=== PATIENT | female | born 1950 | race Caucasian/White ===

== ENCOUNTER 2016-12-13 16:13 | Inpatient (IN) | payer MEDICARE, MEDICAID ==
[~2016-12-13] VITALS: Ht 175.3 cm; Wt 89.0 kg
[~2016-12-13 16:13] MED LIST: ASPI81TA3 PO; CETI10TA18 PO; CHOL10008 PO; DOCU250C7 PO; FLUT16SP; FOL1 PO; FOLI-89 PO; GABA400C PO; IMO2 PO; IPRA30SP; ONDANSETRON8ODT SL/PO; PHEN30SP4 NS; ProAirHFA IH; SENN15TA35 PO; [UNRECOGNIZED DRUG - CODE] PO; [UNRECOGNIZED DRUG - CODE] PO
[2016-12-13 16:15] VITALS: BP 98/60; PULSE 92; RESP 20; O2SAT 95
[2016-12-13] MEDS ORDERED: 0.9% Sodium Chloride 1,000 ML IV ONE ×2 (17:38→20:00)
--- NOTE | 2016-12-13 17:57 | ED.REPORT ---
HPI-Extremity Problem Lower Date of Service Dec 13, 2016 ED Provider: Ritchie Taylor MD Pt is a 66 year old female with a hx of lupus, neuropathy, COPD, TIA, CVA presenting to the ED via EMS complaining of right leg pain and swelling worsened 5 days ago. Denies cough, SOB or fever. She states that the pain and swelling began a month and a half ago and the wound burst 5 days ago. The pt is currently taking Bactrim with no relief, with ongoing swelling and erythema. She denies being on immunosuppressants. Nursing Notes Stated Complaint: R LEG INFECTION Chief Complaint: General Complaint Nursing Notes Reviewed: Yes Allergies: Coded Allergies: No Known Allergies (Verified Allergy, Unknown, 12/13/16) Uncoded Allergies: HAYFEVER (Allergy, Unknown, 06/11/16) Scheduled Aspirin Chew (Aspirin Chew) 81 Mg Chew 81 MG PO DAILY Cetirizine-Expunged Drug, Do Not Renew! (Cetirizine-Expunged Drug, Do Not Renew! ) 10 Mg Tablet 10 MG PO DAILY Cholecalciferol-Expunged Drug, Do Not Renew! (Vitamin D3-Expunged Drug, Do Not Renew!) 1,000 Unit Tab.chew 1,000 UNIT PO DAILY Docusate Sod-Expunged Drug, Do Not Renew! (Docusate Sod-Expunged Drug, Do Not Renew!) 250 Mg Cap 250 MG PO HS Folic Acid-Expunged Drug, Do Not Renew! (Folic Acid-Expunged Drug, Do Not Renew! ) 1 Mg Tablet 1 MG PO DAILY Folic Acid/Multivits-Min/Lut (Multi-Vitamin Gummies) 1 Each Tab.chew 1 EACH PO DAILY Gabapentin-Expunged Drug, Do Not Renew! (Neurontin-Expunged Drug, Do Not Renew! ) 400 Mg Capsule 400 MG PO QID Ipratropium-Expunged Drug, Do Not Renew! (Ipratropium-Expunged Drug, Do Not Renew!) 345 Evant/30 Ml Evant 2 SPR NA TID Loperamide-Expunged Drug, Do Not Renew! (Imodium-Expunged Drug, Do Not Renew!) 2 Mg Tablet 2 MG PO PRN Sennosides-Expunged Drug, Do Not Renew! (Senna Soft-Expunged Drug, Do Not Renew! ) 15 Mg Tablet 15 MG PO HS Scheduled PRN Albuterol-Expunged Drug, Do Not Renew! (Albuterol-Expunged Drug, Do Not Renew!) 200 Puff/8.5 Gm Hfa.aer.ad 200 PUFF IH Q4 PRN PRN Fluticasone-Expunged Drug, Do Not Renew! (Flonase-Expunged Drug, Do Not Renew!) 120 Sprays Aero 120 SPRAYS NA PM PRN PRN HYDROcodone/APAP-Expunged Drug, Do Not Renew! (Vicodin 10/325-Expunged Drug, Do Not Renew!) 1 Tab Tablet 1 TAB PO QID PRN PRN Hydrocod/APAP-Expunged, Do Not Renew! (VICODIN 7.5/325-Expunged Drug, Do Not Renew) 1 Ea Tablet 1 EA PO Q4-6H PRN PRN Ondansetron ODT 8 MGTab (Zofran ODT 8 MG Tab) 8 Mg Tab.rapdis 8 MG SL/PO Q4 PRN PRN 8 MG Phenylephrine Hcl (Nasal Evant) 30 Ml Evant 1 SPRAY NS TID PRN PRN General Time Seen by MD: 17:38 Chief Complaint Leg injury right Hx Obtained From: Patient, EMS Arrived By: Ambulance Onset Occurred: More than a week ago... (1 month) Symptom Duration: Since onset Location: : Leg right Quality: Painful Severity: Current: Mild Severity: Maximum: Moderate Associated with: Reports: Swelling Recent Healthcare: No recent doctor visit, No recent hospitalization Similar Sx Previous: No Past Medical History Past Medical History Arthritis h/o pneumonia CVA 1989 COPD Lupus Cirrhosis Anemia TIA (1989) Osteoporosis Uropathy h/o rectovaginal fistula Tubal ligation Gastroesophogeal reflux Reports: Obesity Past Surgical History right carpal tunnel left hip repair orif l ankle Smoking History Smoker Current Status UNK Social History Hx of alcoholism Alcohol Use: Denies alcohol use Ambulatory Status Wheelchair Review of Systems Constitutional: Denies: Fever Musculoskeletal: Reports: Extremity pain, Extremity swelling Skin: Reports Rash, Reports Swelling Complete sys rev & neg: except as marked. Respiratory: Denies: Non-productive cough, Shortness of breath Physical Exam Initial Vital Signs Vital Signs (First) Date Time Temp Pulse Resp B/P Pulse Ox O2 Delivery O2 Flow Rate FiO2 12/13/16 16:15 36.8 92 20 98/60 95 Room Air Initial VS: Reviewed General/Constitutional: Well-developed, Well-nourished Head / Eyes: Atraumatic, Normocephalic, PERRL ENT: Mucous membranes moist, Conjunctiva normal, No scleral icterus Respiratory: Breath sounds normal, Clear to auscultation, No respiratory distress Cardiovascular: Regular rate & rhythm, Heart sounds normal, Intact distal pulses Skin: Warm, Dry, No cyanosis Neurologic: Alert, Oriented, Nonfocal Psychiatric: Mood/affect normal, Behavior normal, Normal thought content Lower Extremity / Pelvis / MS: Neurologic intact, Vascular intact Right leg: diffuse erythema and warmth. Midline half way down the butler chronic malodorous wound. Abdomen: BS normoactive Interpretation & Diagnostics Interpretation & Diagnostics: CT RIGHT TIBIA/FIBULA: IMPRESSION: Possible rim-enhancing abscess in the anterior soft tissues at the mid tibial diaphyseal level, although unclear if this communicates with the skin surface. Please correlate with clinical exam findings. Possible osteonecrosis/AVN involving the distal tibial diametaphysis. Please correlate clinically and with radiographs. Confirmation with ankle MRI could be performed as clinical warranted. Severe circumferential subcutaneous and soft tissue swelling in keeping with cellulitis. Dictated by: Anthony Aldrich M.D. on 12/13/2016 at 20:50 Lab Results Interpretation Result Diagram: 12/13/16 1758 12/13/16 1758 Test 12/13/16 17:58 White Blood Count 8.3th/mm3 (3.8-10.1) Red Blood Count 3.34mil/mm3 (3.90-5.20) Hemoglobin 10.2g/dL (12.0-15.6) Hematocrit 30.5% (35.0-46.0) Mean Corpuscular Volume 91.3fL (81-100) Mean Corpuscular Hemoglobin 30.5pg (27.0-35.0) Mean Corpuscular Hemoglobin Concent 33.4% (32.0-37.0) Red Cell Distribution Width 13.3% (12.3-15.4) Platelet Count 450bil/L (150-400) Neutrophils (%) (Auto) 69.8% (40-74) Lymphocytes (%) (Auto) 18.0% (14-46) Monocytes (%) (Auto) 9.0% (4-12) Eosinophils (%) (Auto) 2.6% (0-5) Basophils (%) (Auto) 0.2% (0-3) Erythrocyte Sedimentation Rate 51mm/hr (0-40) Sodium Level 135mEq/L (134-144) Potassium Level 3.5mEq/L (3.5-5.2) Chloride Level 93mEq/L (97-108) Carbon Dioxide Level 28mmol/L (18-29) Blood Urea Nitrogen 23mg/dL (8-27) Creatinine 1.50mg/dL (0.57-1.00) Estimat Glomerular Filtration Rate 50mL/min (>59) Glucose Level 102mg/dL (60-99) Lactic Acid Level 1.7mmol/L (0.4-2.0) Calcium Level 7.9mg/dL (8.5-10.1) Magnesium Level 1.8mg/dL (1.6-2.6) Total Bilirubin 0.2mg/dL (0.0-1.2) Aspartate Amino Transf (AST/SGOT) 16U/L (0-50) Alanine Aminotransferase (ALT/SGPT) 6U/L (0-32) Alkaline Phosphatase 112U/L (25-165) Troponin T < 0.010ug/L (0.0-0.011) Total Protein 6.6g/dL (6.4-8.4) Albumin 3.1g/dL (3.4-5.0) ECG Interpretation ECG Interpretation: Prolonged [place] interval. Inferior and anterior infarct. No acute changes. Time: 19:44 Interpreted by: ED physician Normal ECG Interpretation: Normal rate (88), Normal sinus rhythm X-Ray Chest Interpretation Chest Xray Interpretation: IMPRESSION: No acute cardiopulmonary disease Dictated by: Anthony Aldrich M.D. on 12/13/2016 at 19:48 View: Portable, 1 view Interpretation / Wet Read by: Interpret - Radiologist Re-Eval/Medical Decision Med Decision/Clinical Course 66-year-old female with lupus presenting with a right lower extremity cellulitis and abscess. She does not have a fever or leukocytosis. There was some episodic hypotension, lactate was normal, she responded to IV fluids. We have obtained a wound culture and blood cultures. Antibiotics were initiated with vancomycin and Zosyn. While she has extensive cellulitis and an abscess and a small area of gas in the soft tissues, the gas is seen immediately below the drainage tract of the abscess. I do not believe this patient has a necrotizing fasciitis. Orthopedics has been consulted, I believe that this patient is stable for incision and drainage of her abscess tomorrow. Re-Evaluation/Progress #1: Time of Eval: 19:50 Patient Status: Condition improved Re-Evaluation/Progress Note: Performed Physical Exam Re-Evaluation/Progress #2: Time of Eval: 21:26 Patient Status: Condition improved Re-Evaluation/Progress Note: Pt resting comfortably. Temp: 36.7C Consultation #1: Referral / Consult Name: Troy Almonte MD Consulted With: Orthopedic Call Returned at: 21:05 Absorption Plant Operator: Will see patient, Agrees with plan Consultation #2: Referral / Consult Name: Everardo Javier MD Consulted With: Hospitalist Call Returned at: 21:45 Absorption Plant Operator: Will see patient, Agrees with plan, Accepts admit Counseled Regarding: Diagnosis, Lab results, Need for follow-up, When/why to return to ED Discharge & Departure Disposition: ADMITTED TO HOSPITAL Discharge Condition All VS Reviewed: Yes Condition: Improved Referrals: Ellie Rabago (PCP) Alison Attestation Portions of this note were transcribed by Berna Ruiz. I, Dr. Taylor personally performed the history, physical exam and medical decision-making; I reviewed and confirmed the accuracy of the information in the transcribed note. Signed by : Alison Moss, 12/13/2016 and 2144. copies to: Ellie Rabago Donald L MD Dec 13, 2016 17:57 BERNA RUIZ Dec 13, 2016 18:05
[2016-12-13 18:14] LABS: BASOPHILS % (AUTO) 0.2 % (0-3); EOSINOPHILS % (AUTO) 2.6 % (0-5); Mean Corpuscular Hemoglobin 30.5 pg (27.0-35.0); Mean Corpuscular Volume 91.3 fL (81-100); NEUTROPHILS % (AUTO) 69.8 % (40-74); Platelet Count 450 bil/L (150-400)
[2016-12-13 18:32] LABS: ERYTHROCYTE SEDIMENTATION RATE 51 mm/hr (0-40)
[2016-12-13 18:38] LABS: TROPONIN T < 0.010 ug/L (0.0-0.011)
[2016-12-13 18:39] LABS: Magnesium 1.8 mg/dL (1.6-2.6)
--- NOTE | 2016-12-13 19:51 | DRSVH ---
PROCEDURE: X-RAY CHEST ONE VIEW, PORTABLE ([id number]) INDICATIONS: sepsis TECHNIQUE: One view of the chest was acquired. COMPARISON: [facility], , CHEST 2VW, 10/04/2013, 7:45. FINDINGS: Surgical changes and devices: None. Lungs and pleura: No pleural effusions or pneumothorax. Lungs are clear. Diffuse scarring without i nterval change. Mediastinum: Mediastinal contours appear normal. Heart size is normal. Bones and chest wall: No suspicious bony lesions. There is dextroscoliosis Overlying soft tissues a ppear unremarkable. Chronic right rib fractures IMPRESSION: No acute cardiopulmonary disease Dictated by: Anthony Aldrich M.D. on 12/13/2016 at 19:48 Approved by: Anthony Aldrich M.D. on 12/13/2016 at 19:49
[2016-12-13] MEDS ORDERED: Piperacillin-Tazo 3.375 Gm Inj 3.375 GM in Dextrose 5% Minibag Plus 50 ML IV ONE (20:15)
[2016-12-13] MEDS ORDERED: Vancomycin Inj 1,000 MG in IV Premix 1 EACH IV ONE (20:15)
[2016-12-13 20:18] VITALS: BP 81/47; PULSE 87; RESP 15; O2SAT 92
--- NOTE | 2016-12-13 20:58 | DRSVH ---
PROCEDURE: CT TIBIA FIBULA RIGHT W/CONTRAST ([id number]) INDICATIONS: R leg abscess TECHNIQUE: After the administration of intravenous contrast, 3 mm axial sections acquired of the right tibia/fib shelli, with coronal and sagittal reformats. For radiation dose reduction, the following was used: aut omated exposure control, adjustment of mA and/or kV according to patient size. COMPARISON: [facility], CR, KNEE MIN 4VW (LT), 08/08/2012, 10:41. [facility] , CR, KNEE MIN 4VW (RT), 08/08/2012, 10:41. FINDINGS: Image quality: Excellent. Bones: Diffuse osteopenia. No discrete fracture. Serpiginous sclerosis present in the distal tibial d iametaphysis Soft tissues: Circumferential severe soft tissue swelling, and skin thickening. There is diffuse supe rficial fascial fluid. Rim-enhancing fluid collection measuring 4.1 x 1.6 cm seen in the anterior sof t tissues at the mid tibial diaphyseal level, suspicious for abscess. There is a focus of gas measuri ng 2-3 mm, and overlying skin defect although unclear if this communicates to the skin surface and re commend clinical correlation with physical exam findings. IMPRESSION: Possible rim-enhancing abscess in the anterior soft tissues at the mid tibial diaphyseal level, altho ugh unclear if this communicates with the skin surface. Please correlate with clinical exam findings. Possible osteonecrosis/AVN involving the distal tibial diametaphysis. Please correlate clinically and with radiographs. Confirmation with ankle MRI could be performed as clinical warranted. Severe circumferential subcutaneous and soft tissue swelling in keeping with cellulitis. Dictated by: Anthony Aldrich M.D. on 12/13/2016 at 20:50 Approved by: Anthony Aldrich M.D. on 12/13/2016 at 20:56
--- NOTE | 2016-12-13 21:32 | PCM.CONORT ---
Subjective Date of Surgery: Dec 13, 2016 Surgeon Admitting Provider:Everardo Javier MD Attending Provider:Everardo Javier MD Primary Care Physician:Ellie Rabago Other Provider: Reason for Consultation: Right leg abscess Allergy Allergies: Coded Allergies: No Known Allergies (Verified Allergy, Unknown, 12/13/16) Uncoded Allergies: HAYFEVER (Allergy, Unknown, 06/11/16) Medications Albuterol-Expunged Drug, Do Not Renew! (Albuterol-Expunged Drug, Do Not Renew!) 200 Puff/8.5 Gm Hfa.aer.ad 200 PUFF IH Q4 PRN PRN (Reported) Aspirin Chew (Aspirin Chew) 81 Mg Chew 81 MG PO DAILY (Reported) Cetirizine-Expunged Drug, Do Not Renew! (Cetirizine-Expunged Drug, Do Not Renew! ) 10 Mg Tablet 10 MG PO DAILY (Reported) Cholecalciferol-Expunged Drug, Do Not Renew! (Vitamin D3-Expunged Drug, Do Not Renew!) 1,000 Unit Tab.chew 1,000 UNIT PO DAILY (Reported) Docusate Sod-Expunged Drug, Do Not Renew! (Docusate Sod-Expunged Drug, Do Not Renew!) 250 Mg Cap 250 MG PO HS (Reported) Fluticasone-Expunged Drug, Do Not Renew! (Flonase-Expunged Drug, Do Not Renew!) 120 Sprays Aero 120 SPRAYS NA PM PRN PRN (Reported) Folic Acid-Expunged Drug, Do Not Renew! (Folic Acid-Expunged Drug, Do Not Renew! ) 1 Mg Tablet 1 MG PO DAILY (Reported) Folic Acid/Multivits-Min/Lut (Multi-Vitamin Gummies) 1 Each Tab.chew 1 EACH PO DAILY (Reported) Gabapentin-Expunged Drug, Do Not Renew! (Neurontin-Expunged Drug, Do Not Renew! ) 400 Mg Capsule 400 MG PO QID (Reported) HYDROcodone/APAP-Expunged Drug, Do Not Renew! (Vicodin 10/325-Expunged Drug, Do Not Renew!) 1 Tab Tablet 1 TAB PO QID PRN PRN (Reported) Hydrocod/APAP-Expunged, Do Not Renew! (VICODIN 7.5/325-Expunged Drug, Do Not Renew) 1 Ea Tablet 1 EA PO Q4-6H PRN PRN (Reported) Ipratropium-Expunged Drug, Do Not Renew! (Ipratropium-Expunged Drug, Do Not Renew!) 345 Henderson/30 Ml Henderson 2 SPR NA TID (Reported) Loperamide-Expunged Drug, Do Not Renew! (Imodium-Expunged Drug, Do Not Renew!) 2 Mg Tablet 2 MG PO PRN (Reported) Ondansetron ODT 8 MGTab (Zofran ODT 8 MG Tab) 8 Mg Tab.rapdis 8 MG SL/PO Q4 PRN PRN (Reported) 8 MG Phenylephrine Hcl (Nasal Henderson) 30 Ml Henderson 1 SPRAY NS TID PRN PRN (Reported) Sennosides-Expunged Drug, Do Not Renew! (Senna Soft-Expunged Drug, Do Not Renew! ) 15 Mg Tablet 15 MG PO HS (Reported) History History of ENT Problems?: No HEENT History: Positive for:: Sinus Problem Denies:: Abnormal Airway Difficult Intubation Dysphagia Hearing Problem Hx of Heart Problems?: No Cardiovascular History: Denies:: Atrial Fibrillation Chest Pain Congestive Heart Failure Hypertension Valvular Heart Disease Hx of Respiratory Problem?: Yes Respiratory History: Positive for:: COPD (patient states she does does not have copd but it is noted in chart history) Dyspnea Pneumonia (X 2 WHEN IN LATE 20'S) Denies:: Asthma Chest Surgery Cough Emphysema Hemoptysis Tuberculosis Hx Neurologic Problems?: No Neurological History: Positive for:: CVA (1989 SLIGHT CVA) Hx of GI Problems?: No Gastrointestinal History: Positive for:: Cirrhosis Gastroesphageal Reflux Denies:: Diverticulitis Hiatal Hernia Rectal Bleeding Hx of Problems?: No Female Hx: Denies:: Currently Hx Musculoskeletal Problems?: Yes Musculoskeletal History: Denies:: Joint Replacement Other History/Comment Sapna Rodriguez is a 66 year old female with a hx of lupus, neuropathy, COPD, TIA, CVA presents with complaints of right leg pain and swelling over the past 4-5 days. She states that the pain and swelling began a month and a half ago and a growing lesion along her anterior tibia opened up approximately 5 days ago. The pt is currently taking Bactrim with no improvement with ongoing swelling and erythema. She denies being on immunosuppressants and denies any fever chills today. She denies any other issues or complaints today. Hx of Psycho/Social Problems?: No Hx Surgeries?: Yes Hx Any Other Health Problems?: No Other History: Positive for:: Hospitalization Denies:: Cancer Endocrine Disease Thyroid Disease Hx Diabetes: NoBedside Blood Glucose: 102 Hx Alcohol Use: NoHx Substance Use: No Smoking Status: Smoker Current Status UNK Have You Smoked inLast 12 mo: YesApprox How Many Cigarettes/day: 10 Objective Exam Vital Signs & I/O Vital Sign- Last 8 Hours Date Time Temp Pulse Resp B/P Pulse Ox O2 Delivery O2 Flow Rate FiO2 12/13/16 20:18 87 15 81/47 92 Room Air 12/13/16 16:15 36.8 92 20 98/60 95 Room Air Lab & Micro Results Laboratory Tests Test 12/13/16 17:58 White Blood Count 8.3th/mm3 (3.8-10.1) Red Blood Count 3.34mil/mm3 (3.90-5.20) Hemoglobin 10.2g/dL (12.0-15.6) Hematocrit 30.5% (35.0-46.0) Mean Corpuscular Volume 91.3fL (81-100) Mean Corpuscular Hemoglobin 30.5pg (27.0-35.0) Mean Corpuscular Hemoglobin Concent 33.4% (32.0-37.0) Red Cell Distribution Width 13.3% (12.3-15.4) Platelet Count 450bil/L (150-400) Neutrophils (%) (Auto) 69.8% (40-74) Lymphocytes (%) (Auto) 18.0% (14-46) Monocytes (%) (Auto) 9.0% (4-12) Eosinophils (%) (Auto) 2.6% (0-5) Basophils (%) (Auto) 0.2% (0-3) Erythrocyte Sedimentation Rate 51mm/hr (0-40) Sodium Level 135mEq/L (134-144) Potassium Level 3.5mEq/L (3.5-5.2) Chloride Level 93mEq/L (97-108) Carbon Dioxide Level 28mmol/L (18-29) Blood Urea Nitrogen 23mg/dL (8-27) Creatinine 1.50mg/dL (0.57-1.00) Estimat Glomerular Filtration Rate 50mL/min (>59) Glucose Level 102mg/dL (60-99) Lactic Acid Level 1.7mmol/L (0.4-2.0) Calcium Level 7.9mg/dL (8.5-10.1) Magnesium Level 1.8mg/dL (1.6-2.6) Total Bilirubin 0.2mg/dL (0.0-1.2) Aspartate Amino Transf (AST/SGOT) 16U/L (0-50) Alanine Aminotransferase (ALT/SGPT) 6U/L (0-32) Alkaline Phosphatase 112U/L (25-165) Troponin T < 0.010ug/L (0.0-0.011) Total Protein 6.6g/dL (6.4-8.4) Albumin 3.1g/dL (3.4-5.0) Microbiology 12/13/16 Blood Culture, Received Pending Result Diagram: 12/13/16175712/13/161757 Review of Systems: Constitutional: Negative, except as otherwise mentioned in the history above. Ophthalmologic: Negative, except as otherwise mentioned in the history above. Cardiovascular: Negative, except as otherwise mentioned in the history above. Respiratory: Negative, except as otherwise mentioned in the history above. Gastrointestinal: Negative, except as otherwise mentioned in the history above. Genitourinary: Negative, except as otherwise mentioned in the history above. Musculoskeletal: Negative, except as otherwise mentioned in the history above. Neurological: Negative, except as otherwise mentioned in the history above. Psychiatric: Negative, except as otherwise mentioned in the history above. Hematologic/Lymphatic: Negative, except as otherwise mentioned in the history above. Allergic/Immunologic: Negative, except as otherwise mentioned in the history above. H&P Surgical Exam Exam Musculoskeletal: CONST: WD,WN, NAD, A+OX3 OCULAR: EOMI, no conjunctivitis/icterus ENT: no deformities, scars or lesions CARDIAC: Pulse is regular. No cyanosis,clubbing,edema RESP: regular,unlabored MSK: normal light touch SPN/DPN/TN distributions. 5/5 DF/PF/Inv/Ev, 2+ DP Right tibia - scars.-effusion - erythema - atrophy or asymmetry. TTP anterior butler, 20 cm area of erythema with 4 cm open lesion with purulent discharge. Fluid noted beneath wound. alignment- neutral, gait- antalgic, edema- moderate ROM 0-15 10-40 2/2 pain, + painful arc, - crepitus, - calf tenderness - instability on varus/valgus stress Signs Cami's: - Reverse McMurrays: - James: 1+ Drawer: 1+ Dial: - Bobo: - Apprehension:- J sign:- patella tilt: - Additional Information CT scan: Possible rim-enhancing abscess in the anterior soft tissues at the mid tibial diaphyseal level, although unclear if this communicates with the skin surface. Please correlate with clinical exam findings. Possible osteonecrosis/AVN involving the distal tibial diametaphysis. Please correlate clinically and with radiographs. Confirmation with ankle MRI could be performed as clinical warranted. Severe circumferential subcutaneous and soft tissue swelling in keeping with cellulitis. H&P Preop Plan Impression right tibial soft tissue abscess with unlikely bone involvement Problems: Risks & Benefits * We have reviewed the risks and benefits as well as the alternatives to surgery. All questions were answered to the patient's satisfaction and a counseling note to that effect. The patient has provided informed consent. * I have counseled the patient regarding the deleterious effects that smoking during the perioperative period can have upon wound healing, infection rates, and the overall rate of complications. Plan Please obtain xray of tib/fib and MRI with contrast for further delineation and confirmation of abscess tonight Plan for I+D of right tibia tomorrow NPO after midnight for surgery on 12/14/16 recommend aspiration for cultures and sensitivity directed therapy prior to abx administration please have wound vac ready for OR placement may need additional wound vac placement sat vs sun verbal and written consent obtained continue medical management per primary please call with questions Please keep the affected extremity elevated when possible. You may use ice and/or heat as needed for comfort. All questions and concerns were addressed. Please feel free to call with any further questions, comments, and/or concerns. Troy Almonte MD Dec 13, 2016 21:32
[2016-12-13 21:45] VITALS: BP 90/50; PULSE 84; RESP 23; O2SAT 93
[2016-12-13] MEDS ORDERED: Alum-Mag Hydrox-Simeth 30 mL Suspension PO PRN (21:45)
[2016-12-13] MEDS ORDERED: Polyethylene Glycol (PEG) 17 Gm Powder PO PRN (21:45)
[2016-12-13] MEDS ORDERED: Ondansetron 2 mg/mL 2 mL Inj IVPUSH PRN (21:45)
[2016-12-13 22:01] VITALS: BP 117/69; PULSE 89; RESP 14; O2SAT 95
[2016-12-13 22:20] LABS: APPEARANCE,URINE CLEAR (CLEAR,HAZY); COLOR,URINE YELLOW (YELLOW); OCCULT BLOOD,URINE NEGATIVE (NEGATIVE); UROBILINOGEN,URINE NORMAL (NORMAL)
--- NOTE | 2016-12-13 22:44 | PCM.HPMED ---
Subjective Date of Service Dec 13, 2016 Primary Provider: Admitting Physician: Everardo Javier MD Primary Care Physician: Ellie Rabago Attending Physician: Everardo Javier MD Admit Status: From the Emergency Department, Non-Telemetry Chief Complaint: Right leg infection History of Present Illness: Patient is a 66 year old female with a hx of lupus, neuropathy, COPD, TIA, CVA presenting to the ED via EMS complaining of right leg pain and swelling worsened 5 days ago. The pain is on her right lower leg, usually a constant 7/ 10 in pain scale, currently mild given pain medications in the ED. Patient states she picked a scab off her anterior butler 2 days before the leg started to swell and became painful. Denies cough, SOB or fever. Swelling and redness has been there for 1.5 months, and patient was prescribed Bactrim which she took for 5 days with no significant change about one month ago prescribed by her PCP , Ellie JOSEPH. She denies being on immunosuppressants. In the ED, vitals 36.8, P92 RR20, BP98/60, 95% on RA. WBC 8.3 with lactic acid 1.7, ESR 51. Ortho, Dr. Almonte was consulted, patient seen. Patient admitted with plans for I& D in am. Review of Systems: 11 points ROS reviewed and negative otherwise noted in HPI. Allergies Coded Allergies: No Known Allergies (Verified Allergy, Unknown, 12/13/16) Uncoded Allergies: HAYFEVER (Allergy, Unknown, 06/11/16) Home Medications Scheduled Aspirin Chew (Aspirin Chew) 81 Mg Chew 81 MG PO DAILY Cetirizine-Expunged Drug, Do Not Renew! (Cetirizine-Expunged Drug, Do Not Renew! ) 10 Mg Tablet 10 MG PO DAILY Cholecalciferol-Expunged Drug, Do Not Renew! (Vitamin D3-Expunged Drug, Do Not Renew!) 1,000 Unit Tab.chew 1,000 UNIT PO DAILY Docusate Sod-Expunged Drug, Do Not Renew! (Docusate Sod-Expunged Drug, Do Not Renew!) 250 Mg Cap 250 MG PO HS Folic Acid-Expunged Drug, Do Not Renew! (Folic Acid-Expunged Drug, Do Not Renew! ) 1 Mg Tablet 1 MG PO DAILY Folic Acid/Multivits-Min/Lut (Multi-Vitamin Gummies) 1 Each Tab.chew 1 EACH PO DAILY Gabapentin-Expunged Drug, Do Not Renew! (Neurontin-Expunged Drug, Do Not Renew! ) 400 Mg Capsule 400 MG PO QID Ipratropium-Expunged Drug, Do Not Renew! (Ipratropium-Expunged Drug, Do Not Renew!) 345 Cornish/30 Ml Cornish 2 SPR NA TID Loperamide-Expunged Drug, Do Not Renew! (Imodium-Expunged Drug, Do Not Renew!) 2 Mg Tablet 2 MG PO PRN Sennosides-Expunged Drug, Do Not Renew! (Senna Soft-Expunged Drug, Do Not Renew! ) 15 Mg Tablet 15 MG PO HS Scheduled PRN Albuterol-Expunged Drug, Do Not Renew! (Albuterol-Expunged Drug, Do Not Renew!) 200 Puff/8.5 Gm Hfa.aer.ad 200 PUFF IH Q4 PRN PRN Fluticasone-Expunged Drug, Do Not Renew! (Flonase-Expunged Drug, Do Not Renew!) 120 Sprays Aero 120 SPRAYS NA PM PRN PRN HYDROcodone/APAP-Expunged Drug, Do Not Renew! (Vicodin 10/325-Expunged Drug, Do Not Renew!) 1 Tab Tablet 1 TAB PO QID PRN PRN Hydrocod/APAP-Expunged, Do Not Renew! (VICODIN 7.5/325-Expunged Drug, Do Not Renew) 1 Ea Tablet 1 EA PO Q4-6H PRN PRN Ondansetron ODT 8 MGTab (Zofran ODT 8 MG Tab) 8 Mg Tab.rapdis 8 MG SL/PO Q4 PRN PRN 8 MG Phenylephrine Hcl (Nasal Cornish) 30 Ml Cornish 1 SPRAY NS TID PRN PRN PMH Arthritis h/o pneumonia CVA 1989 COPD Lupus Cirrhosis Anemia TIA (1989) Osteoporosis Uropathy GERD Obesity Surgical History right carpal tunnel left hip repair ORIF left ankle h/o rectovaginal fistula Tubal ligation Social History Hx Alcohol Use: No Hx Substance Use: No Hx Tobacco Use: No Smoking Status: Smoker Current Status UNK Living Arrangement: Alone (wheelchair bound, local resident) Exam Vital Signs Vital Sign - Last Date Time Temp Pulse Resp B/P Pulse Ox O2 Delivery O2 Flow Rate FiO2 12/13/16 20:18 87 15 81/47 92 Room Air 12/13/16 16:15 36.8 Exam GEN: Patient comfortably lying in bed, NAD HEENT: NC/AT, EOMI, sluggish pupils, sclera anicteric, moist mucous membranes with upper dentures in place Neck: supple with full ROM CV: RRR, normal S1, S2, no murmurs. NL peripheral pulses Lungs: CTAB ABD: soft, non-tender, normal active bowel tones Skin: Erythema, swelling and warmth on bilateral lower extremities with diffused scaling. Tenderness to palpation R>L. Open lesion on right mid anterior butler with mild drainage and malodor. No other open wounds noted on legs ,feet or toes. Neuro: alert and oriented, appears drowsy due pain medications given, but answers questions appropriately Psych: normal mood and affect Lab and Diagnostics Result Diagram: 12/13/16175712/13/161757 X-Rays, CTs and MRIs Date of Service: 12/13/161737 PROCEDURE: X-RAY CHEST ONE VIEW, PORTABLE ([id number]) IMPRESSION: No acute cardiopulmonary disease Dictated by: Anthony Aldrich M.D. on 12/13/2016 at 19:48 Date of Service: 12/13/161999 PROCEDURE: CT TIBIA FIBULA RIGHT W/CONTRAST ([id number]) INDICATIONS: R leg abscess IMPRESSION: Possible rim-enhancing abscess in the anterior soft tissues at the mid tibial diaphyseal level, although unclear if this communicates with the skin surface. Please correlate with clinical exam findings Possible osteonecrosis/AVN involving the distal tibial diametaphysis. Please correlate clinically and with radiographs. Confirmation with ankle MRI could be performed as clinical warranted. Severe circumferential subcutaneous and soft tissue swelling in keeping with cellulitis. Dictated by: Anthony Aldrich M.D. on 12/13/2016 at 20:50 Assessment & Plan Patient is a 66 year old female with a hx of lupus, neuropathy, COPD, TIA, CVA presenting to the ED via EMS complaining of right leg pain and swelling worsened 5 days ago. Found to have possible abscess with high risk of osteonecrosis/AVN involving distal tibia. Patient admitted for possible I&D tomorrow. Cellulitis with possible abscess, present on admission. Acute. - CT showed "Possible rim-enhancing abscess in the anterior soft tissues at the mid tibial diaphyseal level, although unclear if this communicates with the skin surface. Please correlate with clinical exam findings.Possible osteonecrosis/AVN involving the distal tibial diametaphysis. Please correlate clinically and with radiographs. Confirmation with ankle MRI could be performed as clinical warranted.Severe circumferential subcutaneous and soft tissue swelling in keeping with cellulitis." - Vanco and Zosyn started in ED, will continue until C/S results - wound swabbed for culture and sensitivities pending - Dr. Almonte of ortho consulted and has seen patient, possible I&D in am - NPO - Xray of tibia and fibula, MRI with contrast ordered - wound vac ordered - MRSA swab pending COPD - continue home dose Advair Neuropathy - continue home dose gabapentin - Vicodin held Lupus - continue to monitor GERD - patient not on any medication for this Allergic rhinitis - continue home cetirizine - Acetaminophen as needed for mild pain/fever/headache - Bowel regimen as needed - Antiemetic as needed DVT: anticoagulation held due to I&D in am, SCD not appropriate due to lesion in lower extremity GI: not indicated CODE: DNR/DNI Patient admitted under inpatient status with expected length of stay > 2 midnights for severity of present symptoms, complexities of treatment plan and risk for adverse events. Resuscitation Status: DNR/DNI:Do Not Resuscitate/Intubate Attending Statement The patient was seen and examined together with Dr. Valentino on 12/13 and I agree with the history, exam and plan as outlined in the note above. Indira Valentino DO Dec 13, 2016 21:51 Everardo Javier MD Dec 13, 2016 23:43
[2016-12-13 23:23] VITALS: BP 87/55; PULSE 84; RESP 18; O2SAT 93
--- NOTE | 2016-12-13 23:45 | NUR ---
NEW ADMIT Report given by Emperatriz Buchanan RN in the ED. Pt arrived from the ED @ 2340 in bed. Pt extremely tired and only able to answer minimal admission questions. Pt's vitals stable, pt c/o of generalized back pain, with no PRN pain medication given. Pt has an open wound to the right lower extremity that is weeping. Chucks pad placed underneath right leg. Pt refused to change into hospital gown, preferred to wear personal clothing. Tele on, pt on RA, swabbed for MRSA and sent to lab. Pt resting comfortably. No other issues noted at this time.
[2016-12-13 23:48] VITALS: BP 94/60; PULSE 83; RESP 16; O2SAT 93
[2016-12-14] VITALS (18 sets, daily range): BP systolic 76–114; BP diastolic 42–92; PULSE 76–95; RESP 10–28; O2SAT 89–98
[2016-12-14] MEDS ORDERED: Vancomycin Inj 1,000 MG in IV Premix 1 EACH IV ONE ×2 (01:20)
--- NOTE | 2016-12-14 02:03 | PCM.PHAPRO ---
Progress Right leg infection VANCOMYCIN DOSING PER PHARMACY Indication: Right leg cellulitis Trough: 10-15 Lab: Scr: 1.50 CrCl: 45 WBC: 8.3 Blood cultures are pending Additional abx: zosyn Plan - Pt received vancomycin 1000 mg IV once in the ED @2100 on 12/13 - Gave another dose of vancomycin 1000 mg IV once to have total loading dose of vancomycin 2000 mg IV - Will give vancomycin 1000 mg IV q 24 beginning tonight @2100 (12/14) - Will draw an early trough on 12/15 @ 2029 - Pharmacy will continue to follow as appropriate Awa Bonilla PharmD Dec 14, 2016 02:03
[2016-12-14 03:01] LABS: BASOPHILS % (AUTO) 0.1 % (0-3); EOSINOPHILS % (AUTO) 1.9 % (0-5); MONOCYTES % (AUTO) 9.7 % (4-12); Mean Corpuscular Hemoglobin 29.7 pg (27.0-35.0); Mean Corpuscular Volume 92.6 fL (81-100); NEUTROPHILS % (AUTO) 75.3 % (40-74); Platelet Count 400 bil/L (150-400)
[2016-12-14 03:19] LABS: INR 0.95 ratio
[2016-12-14] MEDS ORDERED: Piperacillin-Tazo 3.375 Gm Inj 3.375 GM in Dextrose 5% Minibag Plus 50 ML IV SCH (04:30)
--- NOTE | 2016-12-14 05:12 | NUR ---
LEG WOUND/INCONTINENCE Pt incontinent of bladder during the night. Pt stated she just couldn't make it. No pain, SOB, chest pain, N/V/D noted. Pt's right leg continues to weep serous fluid, chucks pad underneath leg. Vitals stable, patient rested well throughout the night.
[2016-12-14 06:23] LABS: ERYTHROCYTE SEDIMENTATION RATE 32 mm/hr (0-40)
[2016-12-14] MEDS ORDERED: Lactated Ringer's 1,000 ML IV ONE ×2 (07:55→15:23)
[2016-12-14] MEDS ORDERED: Vancomycin Dose per Pharmacist XX SCH (08:30)
[2016-12-14] MEDS ORDERED: fentaNYL-PF 50 mCg/mL 2 mL Inj ONE ×2 (09:21→16:43)
[2016-12-14] MEDS ORDERED: FUR20 PO (11:41)
[2016-12-14] MEDS ORDERED: HYDR-3740 PO (11:41)
[2016-12-14] MEDS ORDERED: ALBU8.5H2 INH (11:41)
[2016-12-14] MEDS ORDERED: GABA-504 PO (11:41)
[2016-12-14] MEDS ORDERED: FLUT9.9S NASAL (11:44)
[2016-12-14] MEDS ORDERED: MULT1CAP33 PO (11:46)
[2016-12-14] MEDS ORDERED: Propofol 10,000 mCg/mL 20 mL Inj ONE (12:37)
[2016-12-14] MEDS ORDERED: Ondansetron 2 mg/mL 2 mL Inj ONE (12:37)
--- NOTE | 2016-12-14 13:03 | CONS ---
[address] [address] CONSULTATION REPORT PATIENT: OSMAN WOLFE : 1950 MR#: [id number] ADMIT: 12/13/2016 JOB ID: [id number] DATE OF SERVICE: 12/14/2016 INFECTIOUS DISEASE CONSULTATION: I thank Dr. Valentino for this timely consult. REASON FOR CONSULTATION: Severe right lower extremity infection in a patient with underlying lupus. HISTORY OF PRESENT ILLNESS: The patient is a 66-year-old retired woman who lives by herself in the local area with underlying lupus, severe peripheral neuropathy, COPD, and a history of cerebrovascular disease. She has been having some swelling and pain in her right lower extremity for several weeks for which she saw a physician as an outpatient and was given a short course of Bactrim. Apparently the right lower extremity process did not resolve, but continued to be sort of a festering problem. More recently, about five days ago, she was scratching her right lower extremity and thereafter noted a dramatic worsening in the right lower extremity swelling and pain below the knee. This became exquisitely painful and she presented for evaluation and was subsequently admitted strictly on the basis of the appearance of her right lower extremity. Oddly, she denies any associated fevers, chills, or sweats despite this very aggressive infection. She likewise denies any change in her chronic baseline respiratory status. Denies any nausea, vomiting, diarrhea, or change in mental status. PAST MEDICAL HISTORY: 1. Lupus times 10+ years. 2. History of cerebrovascular accident with TIAs. 3. COPD. 4. Possible history of cirrhosis, though I am not certain how this has been established. 5. GERD. 6. Debility requiring the use of a wheelchair for many activities. 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 She is a nonalcohol consumer but a current smoker. She lives alone in an apartment here in [place]. FAMILY HISTORY: Negative for tuberculosis. REVIEW OF SYSTEMS: Was done. The patient is a bit lethargic but we were able to obtain an essentially complete review of systems. At this point she has no headache, visual change, sore throat, or trouble swallowing. No significant cough, though she is a smoker with COPD and is always a bit short of breath. This has not changed. No chest pain. No nausea, vomiting, or diarrhea. She denies urinary complaints; no urgency, frequency, or dysuria. No significant issues with other joints, though she does note she has a chronic swelling of the lower extremities and can only ambulate short distances. PHYSICAL EXAMINATION: Reveals an afebrile woman temperature 37.5, pulse 91, respiratory rate 18, blood pressure 114/71. She is saturating about 91% on room air. The patient is lethargic; will answer questions, but she says she is very tired. She is oriented, though unable to give history. Her head is without trauma. There is no temporal wasting. The eyes without conjunctivitis or scleral icterus. The oral cavity without thrush, hairy leukoplakia, or pharyngitis. The neck without adenopathy or JVD. The lungs are reasonably clear bilaterally; there may be an occasional wheeze, but good air flow bilaterally. Cardiac tones regular rate and rhythm, without murmur. Abdomen soft and nontender. I do not appreciate hepatosplenomegaly or ascites. There is no suprapubic fullness. She does not have a Mendes. The upper extremities are free of synovitis or cellulitis. Neurologically she is capable of utilizing both arms. Both lower extremities have reasonable strength, though it is difficult to fully assess her right leg in view of the lesion. Below the knee the patient has venous stasis changes bilaterally. There is also cracking and some erythema between the toes bilaterally. On the right lower extremity there is obvious swelling which starts just below the knee and extends about mcc down the calf. This swelling is primarily anteriorly and is associated with erythema, tenderness, warmth, and about a 1 cm open wound with drainage. There is a bit of a foul odor associated with this substantial draining wound. LABORATORIES: Include white blood count 10,500, platelet count 400,000, creatinine 1.08 down from 1.5 on admission last night. Liver function tests are normal. Urinalysis with 6-10 white cells, which is normal for her age. Urine culture is negative. Associated other cultures include two blood cultures which are pending, a MRSA screen which is pending from last night, and a wound culture which so far we only have a Gram stain from which shows moderate polys, moderate gram-positive cocci, and moderate gram-variable rods. IMAGING: Was reviewed on the screen and in talking to the radiologist. There is a substantial rim-enhancing abscess seen on a CT scan at the mid tibial level. Also noted is some osteonecrosis in the distal tibia, which looks like bony infarcts to my eye on the MRI scan. A chest x-ray is basically clear. IMPRESSION: This woman has a large abscess which has developed over several weeks and become much worse over the last five days involving the mid tibial portion of the of the right lower extremity. There is an open wound which is draining some fluid which is a bit foul smelling, raising the concern of polymicrobial infection. 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 The likely organisms here are staph and strep, but there is certainly concern, based on the odor and the appearance of multiple organs in the Gram stain, for possible mixed aerobe and anaerobe infection as well. This patient is not in shock and does not appear critically ill, as she might if she had a severe necrotizing soft tissue infection, but nonetheless she is immunosuppressed and has a large amount of tissue at risk, so I think very aggressive antibiotic and surgical interventions are indicated. Because of her perhaps impaired renal function I am a bit reluctant to continue with vancomycin and will switch to daptomycin combined with meropenem. Clindamycin will be added for synergy until we are certain that this is not a group A strep type infection. I agree with surgery. RECOMMENDATIONS: 1. Will discontinue the current antibiotics which include vanc and Zosyn out of concern for possible nephrotoxicity in this woman with underlying lupus. 2. Will get her started on maximal doses of clindamycin, meropenem, and daptomycin, while we await final cultures and surgical debridement. 3. This case was discussed with the team and we will closely follow her with you. Thank you for this consultation.
[2016-12-14] MEDS: DAPTOmycin Inj 500 MG in 0.9% Sodium Chloride 50 ML IV SCH (13:35)
[2016-12-14] MEDS: Clindamycin Inj 900 MG in IV Premix 1 EACH IV SCH ×3 (13:35→18:01)
--- NOTE | 2016-12-14 13:56 | NUR ---
P: Pain I: Pt c/o 02/[address] Segura notified but pain meds not ordered. Gabapentin po given as ordered. IVF infusing 120cc/hr. Antibiotics started. Report given to OR staff. Rt leg swollen, red and weeping. Voiding per BSC without problems. Afebrile. NPO. E: Stable S: Alert and oriented. Uses call light appropriately. Awaiting OR.
--- NOTE | 2016-12-14 14:09 | NUR ---
Social Work: Initial Assessment D: Per EMR review, pt is a 66 year old female admitted for Right Leg Cellulitis. Pt is Medicare with [facility] supplement. PCP is OPAL Pedro. NOK Is Dereck Rodriguez, son, . Advanced directives on chart. Readmit score not entered at this time. Pt discussed in am rounds. Pt scheduled for surgery/I&D today. MUSICAL INSTRUMENT MECHANIC met with pt at bedside. Sw role explained. See initial assessment. Pt lives at home in an apartment, alone. She uses a powerchair for ambulation but is I with transfers. Powerchair is present at bedside. Pt does not drive and has never had HH or skilled rehab. Pt states she has [employer] caregiving for 3 hours/day on Sunday and . Pt cannot recall her [facility] CM name. t/c to [facility]; MUSICAL INSTRUMENT MECHANIC learned pt's worker is Belgica Nunez ([phone]). MUSICAL INSTRUMENT MECHANIC left a message notifying of pt's admission and requested return phone call to verify the aforementioned information about pt's care. [facility] requested to fax clinicals. A: Pt who lives at home, alone with [employer] caregiving P: Evolving; MUSICAL INSTRUMENT MECHANIC to continue to follow and assist with dcp as pt's clinical course develops. JAMA Koehler Addendum: 12/14/16 at 1416 by PABLO HUITRON SS Amended: Links added.
--- NOTE | 2016-12-14 14:15 | PCM.HPANE ---
Patient Data Surgeon Admitting Provider:Everardo Javier MD Attending Provider:Everardo Javier MD Primary Care Physician:Ellie Rabago Other Provider: Reason for Visit Right Leg Cellulitis Ht/WT & BMI Height (Feet): 5 Height (Inches): 9.00 Weight (Kilograms): 81.600 Body Mass Index 26.64 Allergies Coded Allergies: No Known Allergies (Verified Allergy, Unknown, 12/13/16) Uncoded Allergies: HAYFEVER (Allergy, Unknown, 06/11/16) Past Anesthesia History Anesthesia History: Denies:: Abnormal Airway, Anesthesia Reactions, Difficult Intubation, Fam Anesthesia Reaction, Fam Malignant Hypertherm, Malignant Hyperthermia Diabetes History Hx Diabetes?: No Current Bedside Blood Glucose: 102 MRSA MRSA: No Medications Hypertension Medication: No Home Meds Incl Beta Karly: No Reported Medications Multivitamin (Multivitamins)1 Each Capsule1 Each PO DAILY 12/14/16 Fluticasone Propionate (Flonase Allergy Relief)50 Mcg/Actuation Columbia.susp1 Columbia NASAL QID 12/14/16 Albuterol HFA (Proair HFA)8.5 Gm Hfa.aer.ad2 Puffs INH Q4H PRN For Shortness of Breath #9 12/14/16 Hydrocodone-Acetaminophen 10-325 mg 1 Each Tablet1 Tab PO Q4H PRN For Pain #150 12/14/16 Furosemide 20 Mg Tab20 Mg PO BID #60 12/14/16 Gabapentin 400 Mg [id number] Mg PO QID #120 12/14/16 Aspirin Chew 81 Mg Chew81 Mg PO DAILY Ref 0 06/11/16 Discontinued Reported Medications Cetirizine-Expunged Drug, Do Not Renew! 10 Mg Pcmtlc91 Mg PO DAILY 10/01/13 Ondansetron ODT 8 MGTab (Zofran ODT 8 MG Tab)8 Mg Tab.rapdis8 Mg SL/PO Q4 PRN # 20 TAB 8 MG 10/01/13 Phenylephrine Hcl (Nasal [place])30 Ml Spray1 [place] NS TID PRN 10/01/13 Loperamide-Expunged Drug, Do Not Renew! (Imodium-Expunged Drug, Do Not Renew!)2 Mg Tablet2 Mg PO PRN 10/01/13 Hydrocod/APAP-Expunged, Do Not Renew! (VICODIN 7.5/325-Expunged Drug, Do Not Renew)1 Ea Tablet1 Ea PO Q4-6H PRN 10/01/13 HYDROcodone/APAP-Expunged Drug, Do Not Renew! (Vicodin 10/325-Expunged Drug, Do Not Renew!)1 Tab Tablet1 Tab PO QID PRN #20 TAB 10/01/13 Fluticasone-Expunged Drug, Do Not Renew! (Flonase-Expunged Drug, Do Not Renew!) 120 Sprays Gxhc443 Sprays NA PM PRN 10/01/13 Docusate Sod-Expunged Drug, Do Not Renew! 250 Mg Anx909 Mg PO HS 10/01/13 Albuterol-Expunged Drug, Do Not Renew! 200 Puff/8.5 Gm Hfa.aer.ad200 Puff IH Q4 PRN 10/01/13 Ipratropium-Expunged Drug, Do Not Renew! 345 [place]/30 Ml Spray2 Spr NA TID #30 ML 10/01/13 Folic Acid/Multivits-Min/Lut (Multi-Vitamin Gummies)1 Each Tab.chew1 Each PO DAILY 10/01/13 Folic Acid-Expunged Drug, Do Not Renew! 1 Mg Tablet1 Mg PO DAILY 05/16/12 Cholecalciferol-Expunged Drug, Do Not Renew! (Vitamin D3-Expunged Drug, Do Not Renew!)1,000 Unit Tab.chew1,000 Unit PO DAILY 05/16/12 Sennosides-Expunged Drug, Do Not Renew! (Senna Soft-Expunged Drug, Do Not Renew! )15 Mg Ocbtmd80 Mg PO HS 05/16/12 Gabapentin-Expunged Drug, Do Not Renew! (Neurontin-Expunged Drug, Do Not Renew!) 400 Mg Ublxabt766 Mg PO QID 05/16/12 History History of ENT Problems?: No HEENT History: Positive for:: Sinus Problem Denies:: Abnormal Airway Difficult Intubation Dysphagia Hearing Problem Hx of Heart Problems?: No Cardiovascular History: Denies:: Atrial Fibrillation Cardiac Surgery Chest Pain Congestive Heart Failure Heart Murmur Hypertension Irregular Heartbeat Pacemaker Thrombophlebitis Valvular Heart Disease Hx of Respiratory Problem?: Yes Respiratory History: Positive for:: COPD (patient states she does does not have copd but it is noted in chart history) Dyspnea Pneumonia (X 2 WHEN IN LATE 20'S) Denies:: Asthma Chest Surgery Cough Emphysema Hemoptysis Tuberculosis Hx Neurologic Problems?: No Neurological History: Positive for:: CVA (1989 SLIGHT CVA) Denies:: Dementia Dizziness Headaches Parkinson's Disease Seizures Hx of GI Problems?: No Gastrointestinal History: Positive for:: Cirrhosis Gastroesphageal Reflux Denies:: Diverticulitis Gastrointestinal Bleeding Heartburn Hepatitis Hiatal Hernia Rectal Bleeding Hx of Problems?: No Female Hx: Denies:: Currently Hx Musculoskeletal Problems?: Yes Musculoskeletal History: Denies:: Joint Replacement Hx of Psycho/Social Problems?: No Psycho Social History: Denies:: Anxiety Bipolar Disorder Hx Depression Suicide Attempt Hx Surgeries?: Yes Hx Any Other Health Problems?: No Other History: Positive for:: Hospitalization Denies:: Cancer Endocrine Disease Thyroid Disease Hx Diabetes: NoBedside Blood Glucose: 102 Hx Alcohol Use: NoHx Substance Use: No Smoking Status: Smoker Current Status UNK Have You Smoked inLast 12 mo: YesApprox How Many Cigarettes/day: 10 Stop/Bang Treated for Sleep Apnea?: No Do You Have a CPAP Machine?: No Risk Assessment Category Category 1A: Patient has history of documented sleep apnea, and HAS NOT received any narcotic, sedative or anesthesia administration during this stay. Category 1B: Patient has history of documented sleep apnea, and HAS received any narcotic , sedative or anesthesia administration during this stay Category 2: Patient has SUSPECTED Obstructive Sleep Apnea, and HAS received any narcotic , sedative or anesthesia administration during this stay. Category 3: Patient has SUSPECTED Obstructive Sleep Apnea and HAS NOT received narcotic, sedative or anesthesia administration during this stay. Category 4: Outpatient in Procedural Areas with known sleep apnea or who screen positive for High Risk via the STOP/BANG questionnaire. Exam Exam Vital Signs Vital Signs Date Time Temp Pulse Resp B/P Pulse Ox O2 Delivery O2 Flow Rate FiO2 12/14/16 12:30 37.3 82 18 112/72 90 Room Air 12/14/16 12:17 37.3 82 18 112/72 90 Room Air 12/14/16 08:30 37.5 91 18 114/71 91 Room Air 12/14/16 08:00 85 General Appearance: No Acute Distress, Other (Pt very somnolent. Answers questions appropriately when prodded but otherwise not interactive. Did not open her eyes) HEENT/AIRWAY: MP 2, Other (full dentures, minimal cooperation with the exam) Lungs: Normal Air Movement Heart: Exam Unremarkable Meds/Labs/Diagnostics Admission Meds Current Medications Sodium Chloride 1,000 ml @ 0 mls/hr Q0M ONCE IV Last administered on 18:27; Start 12/13/16 at 17:38; Stop 12/13/16 at 17:40; Status DC Sodium Chloride 1,000 ml @ 0 mls/hr Q0M ONCE IV Last administered on 20:40; Start 12/13/16 at 20:00; Stop 12/13/16 at 20:02; Status DC Vancomycin/0.9 % Sod Chloride 1000 mg/Premix 200 ml @ 133.333 mls/hr ONCE ONCE IV Last administered on 12/13/16 21:10; Start 12/13/16 at 20:15; Stop at 12:17; Status DC Piperacillin Sod/ Tazobactam Sod/ Dextrose/Water (Zosyn 3.375 Gm Inj/D5W Minibag Plus) 50 ml @ 100 mls/hr ONCE ONCE IV Last administered on 12/13/16 20:40; Start 12/13/16 at 20:15; Stop 12/14/16 at 12:17; Status DC Pharmacy Consult 1 ea 1 ea DAILY XX Last administered on 12/14/16 07:26; Start 12/14/16 at 08:30; Stop 12/14/16 at 12:17; Status DC Piperacillin Sod/ Tazobactam Sod 3.375 gm/Dextrose/ Water 50 ml @ 12.5 mls/hr Q8H IV Last administered on 12/14/16 03:28; Start 12/14/16 at 04:30; Stop at 12:17; Status DC Vancomycin/0.9 % Sod Chloride/ Premix (Vancomycin Inj/ IV Premix) 200 ml @ 133.333 mls/hr ONCE ONCE IV Last administered on 12/14/16 01:29; Start at 01:20; Stop 12/14/16 at 12:17; Status DC Gabapentin 400 mg 400 mg QID PO Last administered on 12/14/16 12:32; Start at 06:30 Lactated Ringer's 1,000 ml @ 120 mls/hr Q8H20M ONCE IV Last administered on 07:55; Start 12/14/16 at 07:55; Stop 12/14/16 at 16:14 Daptomycin 500 mg/ Sodium Chloride 50 ml @ 100 mls/hr Q24 IV Last administered on 12/14/16 13:35; Start 12/14/16 at 12:15 Clindamycin Phosphate/ Dextrose/Premix (Cleocin Inj/IV Premix) 50 ml @ 100 mls/ hr Q8 IV Last administered on 12/14/16 13:35; Start 12/14/16 at 12:15 Bedside Blood Glucose: 102 Labs Test 12/13/16 17:58 12/13/16 21:59 12/14/16 02:45 Lactic Acid Level 1.7mmol/L (0.4-2.0) Magnesium Level 1.8mg/dL (1.6-2.6) Total Bilirubin 0.2mg/dL (0.0-1.2) Aspartate Amino Transf (AST/SGOT) 16U/L (0-50) Alanine Aminotransferase (ALT/SGPT) 6U/L (0-32) Alkaline Phosphatase 112U/L (25-165) Troponin T < 0.010ug/L (0.0-0.011) Total Protein 6.6g/dL (6.4-8.4) Albumin 3.1g/dL (3.4-5.0) Urine Color Yellow (YELLOW) Urine Appearance Clear (CLEAR,HAZY) Urine pH 6.0 (5.0-8.0) Urine Specific [place] 1.010 (1.003-1.035) Urine Protein Negativemg/dL (NEG,TRACE) Urine Glucose (UA) Negativemg/dL (NEGATIVE) Urine Ketones Negativemg/dL (NEGATIVE) Urine Occult Blood Negative (NEGATIVE) Urine Nitrite Negative (NEGATIVE) Urine Bilirubin Negative (NEGATIVE) Urine Urobilinogen Normalmg/dL (NORMAL) Urine Leukocyte Esterase Negative (NEGATIVE) Urine RBC 0-2/hpf (0-2) Urine WBC 6-10/hpf (0-5) Urine Epithelial Cells Few/hpf (NONE-MOD) Urine Crystals None seen (NONE SEEN) Urine Bacteria None/hpf (NONE-FEW) Urine Hyaline Casts None/lpf (NONE) Urine Granular Casts None seen (NONE SEEN) Urine Waxy Casts None seen (NONE SEEN) Urine Red Blood Cell Casts None seen (NONE SEEN) Urine White Blood Cell Casts None seen (NONE SEEN) Urine Mucus None seen (None Seen) Urine Trichomonas None seen (NONE SEEN) Urine Yeast None (NONE SEEN) Urine Culture Reflexed Indicated White Blood Count 10.5th/mm3 (3.8-10.1) Red Blood Count 2.96mil/mm3 (3.90-5.20) Hemoglobin 8.8g/dL (12.0-15.6) Hematocrit 27.4% (35.0-46.0) Mean Corpuscular Volume 92.6fL (81-100) Mean Corpuscular Hemoglobin 29.7pg (27.0-35.0) Mean Corpuscular Hemoglobin Concent 32.1% (32.0-37.0) Red Cell Distribution Width 13.6% (12.3-15.4) Platelet Count 400bil/L (150-400) Neutrophils (%) (Auto) 75.3% (40-74) Lymphocytes (%) (Auto) 12.7% (14-46) Monocytes (%) (Auto) 9.7% (4-12) Eosinophils (%) (Auto) 1.9% (0-5) Basophils (%) (Auto) 0.1% (0-3) Erythrocyte Sedimentation Rate 32mm/hr (0-40) Prothrombin Time 10.1sec (8.1-12.5) Prothromb Time International Ratio 0.95ratio Sodium Level 138mEq/L (134-144) Potassium Level 3.5mEq/L (3.5-5.2) Chloride Level 101mEq/L (97-108) Carbon Dioxide Level 27mmol/L (18-29) Blood Urea Nitrogen 19mg/dL (8-27) Creatinine 1.08mg/dL (0.57-1.00) Estimat Glomerular Filtration Rate 73mL/min (>59) Glucose Level 90mg/dL (60-99) Calcium Level 7.1mg/dL (8.5-10.1) Plan Impression Patient chart reviewed, patient interviewed and anesthestic plan with risks, benefits, and alternatives discussed, and informed consent obtained. ASA Physical Status: ASA3 Severe Disease Anesthetic Plan: GA Bene/Risks/Altern/Consents: Yes HP Complete Prior to Induction: Yes Pascual Mora MD Dec 14, 2016 14:15
[2016-12-14] MEDS: Meropenem Inj 2,000 MG in 0.9% Sodium Chloride 100 ML IV SCH ×3 (14:41→18:02)
[2016-12-14] MEDS: 0.9% Sodium Chloride 1,000 ML IV SCH (15:21)
[2016-12-14] MEDS ORDERED: Sodium Biphos-Phos 133 mL Enema RECTAL PRN (15:25)
[2016-12-14] MEDS ORDERED: Ondansetron 2 mg/mL 2 mL Inj IVPUSH PRN ×2 (15:25→16:05)
[2016-12-14] MEDS ORDERED: Polyethylene Glycol (PEG) 17 Gm Powder PO PRN (15:25)
[2016-12-14] MEDS ORDERED: Magnesium Hydroxide 10 mL Oral Concentration PO PRN (15:25)
[2016-12-14] MEDS ORDERED: diphenhydrAMINE 25 mg Capsule PO PRN (15:25)
--- NOTE | 2016-12-14 15:31 | NUR ---
Faxed clinicals to [facility] Nunez at [facility] per PEELER OPERATOR
[2016-12-14] MEDS ORDERED: Bacitracin 50,000 unit Inj IRRIGATION ONE (16:00)
[2016-12-14] MEDS ORDERED: Lactated Ringer's 1,000 ML IV SCH (16:01)
[2016-12-14] MEDS ORDERED: Lactated Ringer's 500 ML IV PRN (16:01)
[2016-12-14] MEDS ORDERED: EPHEDrine Sulfate 50 mg/mL Inj IVPUSH PRN (16:05)
[2016-12-14] MEDS ORDERED: Dexamethasone 4 mg/mL Inj IVPUSH PRN (16:05)
[2016-12-14] MEDS ORDERED: Phenylephrine 10,000 mCg/mL Inj IVPUSH PRN (16:05)
[2016-12-14] MEDS ORDERED: Albuterol-Ipratropium 3 mL Inhalation Solution NEB PRN (16:05)
[2016-12-14] MEDS ORDERED: MetoCLOpramide 5 mg/mL 2 mL Inj IVPUSH PRN (16:05)
[2016-12-14] MEDS ORDERED: fentaNYL-PF 50 mCg/mL 2 mL Inj IVPUSH PRN (16:05)
[2016-12-14] MEDS: Sodium Chloride LOK Flush 10 mL Syringe IV SCH (16:30)
--- NOTE | 2016-12-14 16:42 | PCM.ANEP1 ---
Post Anesthesia Phase 1 PACU Phase 1 Assessment Date of Service: Dec 13, 2016 Vital Signs Vital Signs Date Time Temp Pulse Resp B/P Pulse Ox O2 Delivery O2 Flow Rate FiO2 12/14/16 12:30 37.3 82 18 112/72 90 Room Air 12/14/16 12:17 37.3 82 18 112/72 90 Room Air Anesthetic Administered: GA Level of Alertness: Awake, talking HERRON's with Equal Strength: Yes Pain: Yes Nausea or Vomiting: No Oxygen Delivery: Nasal Cannula Lungs: Normal Air Movement Pascual Mora MD Dec 14, 2016 16:42
--- NOTE | 2016-12-14 16:43 | PCM.ANEP2 ---
Post Anesthesia Evaluation ASA/CMS Post Anesthesia VS in Patient's Normal Range?: Yes Resp Stable; Airway Patent?: Yes CV Function & Hydration Stable: Yes Mental Status Recovered?: Yes Pain control Satisfactory?: Yes N/V Control Satisfactory?: Yes Pascual Mora MD Dec 14, 2016 16:43
[2016-12-14] MEDS: HYDROmorphone 1 mg/mL Inj IVPUSH PRN ×3 (16:53→20:30)
--- NOTE | 2016-12-14 17:02 | PCM.ORTHOP ---
Orthopedic Operative Report Date of Service: Dec 13, 2016 Pre Operative Diagnosis right tibial abscess Post Operative Diagnosis same Procedure Right tibial abscess I&D, application of negative pressure therapy wound vacuum to tibial wound Surgeon Surgeon: Troy Almonte Assistants: [place] Indication for Procedure Right tibial abscess Findings Articular abscess approximately 30 cm x 10 cm, 3 cm central necrotic sinus anteriorly Details of Procedure Specimens: Tissue sample taken from resected tibia to be sent to pathology to evaluate margins and any signs of infection/necrotizing fasciitis; cultures from margins for AFB, fungal, aerobic, anaerobic x 2 Patient Status: Patient was extubated and taken to recovery room in stable condition. Indications: Wanda Rodriguez is a 66-year-old female who presents with a Right tibial abscess the past 1-1/2 months, rule out Necrotizing fasciitis. A clear explanation was given to the patient regarding the condition present, and the available conservative and surgical options. It was emphasized that the risks and benefits of surgery include but are not limited to infection, wound healing problems, damage to adjacent structures such as nerves, blood vessels and tendons, termite helper disability and pain, arthritis, hypersensitivity, deep vein thrombosis, pulmonary embolism, cast related problems, loss of limb or life etc,. The patient was given an explanation of what to expect after the surgery, the likely duration for post operative recovery and the instructions that are to be followed. At the end the patient was invited to seek clarification or ask further questions but there were none. The patient voiced understanding of the entire consultation and was given contact details to get in touch with us or emergency services as and when needed. Description of Procedure: Patient taken to operating room and transferred to operating table in supine position. Time out was performed with both anesthesia and orthopaedics were present to confirm details of case to be performed. After time out performed, patient placed under general anesthesia and endotracheal tube secured into place. Once endotracheal tube secured, patient position was again checked to ensure all bony prominences adequately padded. The right lower extremity was prepped and draped in the usual sterile fashion. The opened wounds along the anterior tibia with a 3 cm diameter central nidus and sinus tract was ellipsed off with a 10 blade scalpel. A 15 cm longitudinal incision was made centered along the nidus. The entirety of infected tissue from skin down to fascia was removed secondary to infection approximated 30 cm x 10 cm. The wound was malodorous with a large pocket of pus approximately 20 cc just posterior to the skin and superficial to the anterior, medial, lateral compartment fascia communicating with the open wounds. The large defect that remained following removal of all infected and nonviable tissue was irrigated copiously with a total of 3 liters of normal saline with bacitracin using cysto -tubing with low pressure irrigation. The curet and elevator was used to elevate the nonviable soft tissue from fascia anteriorly while dissection was carefully carried out medially and laterally to the gastrocnemius muscle. The nonviable tissue was send to pathology. After obtaining cultures from deep tissue and surrounding infected areas and specimens were sent to microbiology for aerobic, anaerobic, AFB, and fungal pathogens Hemostasis was maintained with bovie electrocautery and all infected, necrotic or nonviable appearing tissue and bone were resected until only healthy viable tissue remained. Given the severity of contamination of the wound, it was decided to apply a wound vacuum rather than definitive closure of wound with return to OR in two days for repeat irrigation and debridement. The vacuum was connected and there was no leak with continuous pressure therapy. A soft dressing was applied. Patient was then awoken from anesthesia and extubated. Patient tolerated procedure well and there was no complications. RAYON TESTER SURGEON: During the operation, the services of physician surgical first assistant were medically indicated and necessary to provide exposure of the operative site for the surgical procedure and to maintain the limb in a proper position to carry out the operation safely and efficiently. Without the qualified household personal assistant being present, it would have extended the operative procedure and made the procedure technically more difficult to perform. Infectious disease will be consulted postoperatively for comanagement of infection with appropriate antibiotic coverage. Recommend return to the OR in 2 days for I&D with Dr. Donald and closure. Recommend wound care consult. Patient may weight-bear as tolerated with assistance. Grafts, Implants: Implants-See Implant Record Complications There were no periprocedural complications identified. Condition Stable Anesthetic Administered: GA Catheters: None Output, Estimated Blood Loss: 10 Blood Admin during surgery: No Surgical Cast or Splint: Other Surgical Specimen Removed: Yes Specimen sent to Pathology: Yes copies to: Troy Almonte MD, Christopher L MD Dec 14, 2016 17:02
--- NOTE | 2016-12-14 17:03 | DRSVH ---
PROCEDURE: X-RAY RIGHT TIBIA/FIBULA, TWO VIEWS ([id number]) INDICATIONS: abscess TECHNIQUE: 2 views of the tibia and fibula were acquired. COMPARISON: [facility], MR, MR TIBIA FIBULA RT W&WO CON, 12/13/2016, 22:58. [facility], CT, CT TIBIA FIBULA RT W CON, 12/13/2016, 20:18. FINDINGS: Bones: No fractures or dislocations. No suspicious bony lesions. No dense osteomyelitis seen. Mil d osteopenia. Soft tissues: Tissues are thickened, mottled and there is region of gas within the anterior soft tiss ues of the upper lower leg. IMPRESSION: 1. Abnormal appearance of the soft tissues and cellulitis and/or abscess of the soft tissues cannot b e excluded. Correlate clinically. 2. Although no bony erosions are identified, plain film radiography is relatively insensitive in the acute phases of osteomyelitis and may not demonstrate radiographic changes for 15 days. If acute ost eomyelitis is of clinical concern, nuclear medicine regional bone scan or MRI is recommended. Dictated by: Luis E Coello [facility] Interpreted: Virginia Berkowitz MD on 12/14/2016 at 17:01 Transcribed by: MARSHA on 12/14/2016 at 17:02 Approved by: Virginia Berkowitz MD, PhD on 12/14/2016 at 17:26
[2016-12-14] MEDS: HYDROcodone-APAP 5-325 mg Tablet PO PRN ×2 (18:10→22:37)
--- NOTE | 2016-12-14 18:28 | NUR ---
P: Post op right leg I&D I: Pt returned to her room with IVF infusing 120cc/hr and on 2L/NC. Sats on room air 92% so O2 dc'd. Voided 400cc per bedpan. Right leg elevated on pillows with wound vac patent. Taking fluids without difficulty. Dilaudid IV given before PACU brought her to her room. Pt states it is not effective for pain. Pt medicated with 2 tabs of Cameron for pain. Saline lock patent without redness or swelling at the site. IV antibiotics infusing. Gabapentin po given. 36.6 temp, HR 77 and Bp 96/59. E: Stable S: Alert and Oriented. Uses call light appropriately. Frequent rounding.
[2016-12-14] MEDS: Senna-Docusate 8.6-50 mg Tablet PO SCH (20:42)
[2016-12-14] MEDS ORDERED: Vancomycin Inj 1,000 MG in IV Premix 1 EACH IV SCH (21:00)
--- NOTE | 2016-12-14 22:47 | PCM.PNMED ---
Subjective Date of Service Dec 14, 2016 Subjective Patient is a 66 year old female with a history of lupus, neuropathy, COPD, TIA, CVA . Admitted for right lower leg cellulitis, abscess, and planned I&D today. Hospital Day 2. Overnight: no acute events reported. Today: Patient stated that she was very sleepy this morning and her leg is painful to touch, patient noted that her leg has been swollen and red for 1-2 months but began two swell more about 2-3 days ago and has only become worse. Patient stated that her baseline mobility is limited to wheelchair due to neuropathy. Patient denies fever, chills, dysuria, diarrhea. ROS negative except for mentioned above. Exam Vital Signs Vital Sign - Last Date Time Temp Pulse Resp B/P Pulse Ox O2 Delivery O2 Flow Rate FiO2 12/14/16 04:28 92 12/14/16 02:47 36.8 16 96/49 91 Room Air Intake and Output 12/13/16 12/13/16 12/14/16 Cumulative From/Thru 15:00 23:00 07:00 12/13/16 16:15 - 12/14/16 05:46 Intake Total 2000 ml 250 ml 2250 ml Output Total 500 ml 600 ml 1100 ml Balance 1500 ml -350 ml 1150 ml Intake Oral 0 ml 0 ml IV Total 2000 ml 250 ml 2250 ml Output Urine Total 500 ml 600 ml 1100 ml # Voids 1 1 # Bowel Movements 0 0 Exam General: Alert, Oriented X3, Cooperative, No Acute Distress Head: Normocephalic, atraumatic. External ears normal. Eyes: PERRLA, EOMI. Anicteric sclerae. Mouth: Mouth Normal, Mucous Membranes Moist/Remlap Neck: Neck supple with full range of motion. Chest & Lungs: Clear to auscultation bilaterally with no crackles, wheezes, or rhonchi. Cardiovascular: Regular Rate/Rhythm, Normal S1, Normal S2, No Murmurs/Rubs/ Gallops Abdomen: Non-tender, Non-distended, No masses, Normoactive bowel tones, Soft Musculoskeletal: Normal Range of Motion, Extremities: strength 4/4 in all extremities b/l, contractures of hands noted b /l, right lower leg is swollen, erythematous area of 5-7cm in diameter with central ulceration draining purulent material. No sub q emphysema noted. Moderate edema noted up to mid butler bilaterally. No cyanosis/clubbing/ Neurological: Grossly Neurologically Intact, Normal Speech, Strength Normal 4/ 4 ext, Sensation Intact, IVs and Medications Medications Reviewed: Medications were reviewed in detail Medications Vancomycin Zosyn Gabapentin Lab and Diagnostics Result Diagram: 12/14/16 0245 12/14/16 0245 X-Rays, CTs and MRIs Date of Service: 12/13/16 1738 PROCEDURE: X-RAY CHEST ONE VIEW, PORTABLE ([id number]) IMPRESSION: No acute cardiopulmonary disease Dictated by: Anthony Aldrich M.D. on 12/13/2016 at 19:48 Date of Service: 12/13/161999 PROCEDURE: CT TIBIA FIBULA RIGHT W/CONTRAST ([id number]) INDICATIONS: R leg abscess IMPRESSION: Possible rim-enhancing abscess in the anterior soft tissues at the mid tibial diaphyseal level, although unclear if this communicates with the skin surface. Please correlate with clinical exam findings Possible osteonecrosis/AVN involving the distal tibial diametaphysis. Please correlate clinically and with radiographs. Confirmation with ankle MRI could be performed as clinical warranted. Severe circumferential subcutaneous and soft tissue swelling in keeping with cellulitis. Dictated by: Anthony Aldrich M.D. on 12/13/2016 at 20:50 Assessment & Plan Patient is a 66 year old female with a history of lupus, neuropathy, COPD, TIA, CVA . Admitted for right lower leg cellulitis, abscess, and planned I&D today. Hospital Day 2. 1.Cellulitis with abscess, present on admission. Acute. - CT showed "Possible rim-enhancing abscess in the anterior soft tissues at the mid tibial diaphyseal level, although unclear if this communicates with the skin surface. Please correlate with clinical exam findings.Possible osteonecrosis/AVN involving the distal tibial diametaphysis. Please correlate clinically and with radiographs. Confirmation with ankle MRI could be performed as clinical warranted.Severe circumferential subcutaneous and soft tissue swelling in keeping with cellulitis." - Vanco and Zosyn started in ED, will continue until C/S results - wound swabbed for culture and sensitivities pending - Dr. Almonte of ortho consulted and has seen patient, I&D today - NPO - Xray of tibia and fibula, MRI with contrast ordered AM 12/14/16, received call from radiologist in morning before formal report was submitted impression was an abscess tracking down right lower leg approximately 9 cm, with fluid and air bubbles present, noted that tracking infection is close to invading fascial layer. - Orthopedics notified of tracking abscess and potential evolving necrotizing fasciitis - General surgery notified of case and possible necrotizing fasciitis, deferred to judgment of orthopedics - wound vac ordered - MRSA swab pending - Per ID discontinue the current antibiotics which include vanc and Zosyn - Start maximal doses of clindamycin, meropenem, and daptomycin, await final cultures and surgical debridement. - Infectious disease consulted we appreciate their time and recommendations 2.COPD - continue home dose Advair 3.Neuropathy - continue home dose gabapentin - Vicodin held 4.Lupus - continue to monitor 5.GERD - patient not on any medication for this 6/Allergic rhinitis - continue home cetirizine - Acetaminophen as needed for mild pain/fever/headache - Bowel regimen as needed - Antiemetic as needed DVT: anticoagulation held due to I&D in am, SCD not appropriate due to lesion in lower extremity GI: not indicated CODE: DNR/DNI Disposition: Likely discharge to SNF or home with home health post surgical I&D and debridement likely stay >48 hours. Resuscitation Status: DNR/DNI:Do Not Resuscitate/Intubate Attending Statement The patient was seen and examined together with Dr. Segura on 12/14/2016 and I agree with the history, exam and plan as outlined in the note above. . ALBERT SEGURA DO Dec 14, 2016 07:55 Arian Hamilton MD Dec 16, 2016 15:10
--- NOTE | 2016-12-14 23:08 | NUR ---
Pain Pt experiencing 10/10 pain. Pt given PRN analgesics along with Benadryl. One hour post analgesics, pt began to stop moaning and crying. Able to eat dinner. Pt given next dose of [place] at 2200. Emergency Vehicle Operations Instructor will continue to give q4h scheduled analgesics to keep client comfortable as she is overwhelmed with pain to wound vac site.
--- NOTE | 2016-12-14 23:13 | NUR ---
BP Pt's BP at 2100 at 76/46. Geochemist rechecked BP in second arm and in the forearm with the same results. One hour post pain medication administration, pt's BP at 89/42. Pt asymptomatic. Provider notified. Provider stated that will continue to monitor and treat with fluids. Currently pt is receiving 120ml/hr of NS.
[2016-12-15] VITALS (8 sets, daily range): BP systolic 77–89; BP diastolic 48–54; PULSE 82–99; RESP 16–24; O2SAT 89–97
[2016-12-15] MEDS: Clindamycin Inj 900 MG in IV Premix 1 EACH IV SCH ×2 (00:25→08:44)
[2016-12-15] MEDS: Sodium Chloride LOK Flush 10 mL Syringe IV SCH ×3 (00:30→16:30)
[2016-12-15] MEDS: Meropenem Inj 2,000 MG in 0.9% Sodium Chloride 100 ML IV SCH ×3 (02:17→18:08)
[2016-12-15] MEDS: HYDROmorphone 1 mg/mL Inj IVPUSH PRN ×2 (02:18→08:44)
[2016-12-15 03:25] LABS: BASOPHILS % (AUTO) 0.1 % (0-3); EOSINOPHILS % (AUTO) 1.5 % (0-5); Mean Corpuscular Hemoglobin 30.2 pg (27.0-35.0); NEUTROPHILS % (AUTO) 81.3 % (40-74); Platelet Count 367 bil/L (150-400)
[2016-12-15] MEDS: 0.9% Sodium Chloride 1,000 ML IV SCH ×2 (03:51→16:21)
[2016-12-15] MEDS: HYDROcodone-APAP 5-325 mg Tablet PO PRN ×3 (06:06→18:09)
[2016-12-15] MEDS: Senna-Docusate 8.6-50 mg Tablet PO SCH ×2 (08:46→19:56)
--- NOTE | 2016-12-15 08:46 | PCM.PNORTH ---
Subjective Date of Service: Dec 15, 2016 Visit Information: Reason for Visit Right Leg Cellulitis Surgery/Surgery Date Post-Op Day # Date of Admission: Dec 13, 2016 at 20:39 Hospital Day # Subjective Foundation awake and alert and sitting up in bed. No complaints of pain at this time with gentle manipulation of the leg and DVT check. Patient is well- positioned with wound VAC in place and working. Discussed pending return to our for repeat I&D and possible closure of wound. Patient would like to eat today and requests whether she can eat. I have told the patient that I would find out when she is going back to the OR and notify her nurse. Postop General: No Complaints, No Shortness of Breath, No Chest Pain, Good Appetite Pain Management: PO, IV Push Objective Exam Objective Orientation: Alert and oriented 3 and pleasant. Dressing: Interoperative wound VAC is in place and working at right lower extremity. Wound: Wound is intact with wound VAC in place Compartments: Calf and thigh are soft with some tenderness at the mid posterior calf likely secondary to surgical wound. Mobility/sensation: Toe wiggle his intact in right lower extremity distally. Sensation at lower extremity is reduced bilaterally secondary to pre-existing neuropathy of unknown origin. Abduction wedge: Absent absent SRAVANI hose: Absent Mendes: Absent Drain: Wound VAC in place and working Gait: Nonweightbearing at this time secondary to wound VAC. Vital Signs and I/O Vital Sign - Last Date Time Temp Pulse Resp B/P Pulse Ox O2 Delivery O2 Flow Rate FiO2 12/15/16 05:01 90 12/15/16 02:54 37.0 24 86/49 94 Room Air 12/14/16 17:35 2 Intake and Output 12/14/16 12/14/16 12/15/16 Cumulative From/Thru 14:59 22:59 06:59 12/13/16 16:15 - 12/15/16 06:18 Intake Total 2000 ml 1735 ml 5985 ml Output Total 410 ml 950 ml 2460 ml Balance 1590 ml 785 ml 3525 ml Intake Oral 0 ml IV Total 2000 ml 965 ml 5215 ml TPN/PPN 770 ml 770 ml Output Urine Total 400 ml 950 ml 2450 ml Estimated Blood Loss 10 ml 10 ml # Voids 1 # Bowel Movements 0 Lab & Micro Results Laboratory Tests Test 12/15/16 03:10 White Blood Count 11.7th/mm3 (3.8-10.1) Red Blood Count 2.85mil/mm3 (3.90-5.20) Hemoglobin 8.6g/dL (12.0-15.6) Hematocrit 26.8% (35.0-46.0) Mean Corpuscular Volume 94.0fL (81-100) Mean Corpuscular Hemoglobin 30.2pg (27.0-35.0) Mean Corpuscular Hemoglobin Concent 32.1% (32.0-37.0) Red Cell Distribution Width 13.9% (12.3-15.4) Platelet Count 367bil/L (150-400) Neutrophils (%) (Auto) 81.3% (40-74) Lymphocytes (%) (Auto) 7.8% (14-46) Monocytes (%) (Auto) 9.0% (4-12) Eosinophils (%) (Auto) 1.5% (0-5) Basophils (%) (Auto) 0.1% (0-3) Prothrombin Time 10.7sec (8.1-12.5) Prothromb Time International Ratio 1.00ratio Sodium Level 141mEq/L (134-144) Potassium Level 3.6mEq/L (3.5-5.2) Chloride Level 104mEq/L (97-108) Carbon Dioxide Level 27mmol/L (18-29) Blood Urea Nitrogen 14mg/dL (8-27) Creatinine 0.99mg/dL (0.57-1.00) Estimat Glomerular Filtration Rate 81mL/min (>59) Glucose Level 106mg/dL (60-99) Lactic Acid Level 0.8mmol/L (0.4-2.0) Calcium Level 7.2mg/dL (8.5-10.1) Total Creatine Kinase 104U/L (21-215) Procalcitonin < 0.05ng/mL (See Comment) Microbiology 12/13/16 Blood Culture - Preliminary, Resulted NO GROWTH AFTER 24 HOURS 12/13/16 MRSA Surveillance Culture - Final, Complete Screen Positive For Mrsa 12/13/16 Urine Culture - Preliminary, Resulted No growth to date 12/14/16 Gram Stain - Final, Resulted 12/14/16 Culture & Sensitivity, Resulted Pending 12/14/16 Anaerobic Culture, Resulted Pending 12/14/16 Fungal Culture, Resulted Pending Result Diagram: 12/15/16 03112/15/16 031 General Appearance: Alert, Oriented X3, Cooperative, No Acute Distress Extremities: No Compartment Syndrom Noted, Thigh & Calf Soft/Nontender Postop Sensory Motor: Distal Motor Intact, Movement in Toes, Decreased Sensation (decreased sensation in the lower extremity is bilaterally secondary to neuropathy of unknown origin.) SURGICAL WOUND : Drain Location Body Site: Leg Wound Drainage Type: Wound Vac Activity: Activity per PT, Ambulate with PT (nonweightbearing at this time secondary to wound VAC and pending return to the OR for repeat I&D and likely wound closure. Patient may participate in bed mobility and upper extremity mobility as able.) Catheters: None Assessment & Plan Impression Patient is a 66-year-old female admitted on 12/13/2016 with history of right lower extremity cellulitis with advancing abscess at the anterior aspect of mid tibia. An I&D at this area is performed on 12/13/[address] Troy Almonte and a wound VAC is placed at that time. Planned return to the OR on 12/16/2016 for repeat I&D and likely wound closure. Problems: Plan Postop day # 2 from right anterior tibia abscess I&D with wound VAC placed intraoperatively by Dr. Troy Almonte on 12/13/2016. Weight bearing status: Nonweightbearing at the right lower extremity Mobility aid: Front wheeled walker Immobilization: None Precautions: Physical therapy: Continue physical therapy and occupational therapy for mobility as able. Patient is essentially wheelchair-bound at baseline with report of transfers and occasional sit to stand.. Pain control: Discussed pain control with nurse this morning and have increased oxycodone from 5-10 mg every 4 hours to 5-15 mg every 4 hours. Ask nursing to watch for somnolence and respiratory depression. DVT prophylaxis: Per hospitalist service. We will likely hold until after return to OR on 12/16/[address] Odilon Bauer from orthopedics. Wound care: Maintain wound VAC in place and working. Wound care consult has been requested for oversight of current VAC placed on 12/13/[address] Troy nguyen. Planned return to OR on 12/16/[address] Odilon Shaw for repeat I&D and closure. Indeterminate at this time whether new wound VAC will be placed postop. Infectious DZ: ID consult has been accomplished by Dr. Rom Lopez. Orthopedics thanks Dr. Lopez for his participation in the medical management of this patient. Mendes: Absent Dressing: Wound VAC in place and working Drain: Wound VAC in place and working Abduction wedge: Absent SRAVANI hose: Absent Nursing communication: Nursing please manage patient's increase in medication closely and watch for somnolence and respiratory depression with slight increase and Roxicodone. 2-week follow-up: TBD 6-week follow-up: TBD Orthopedics thanks hospitalist service for their help in the medical management of this patient. Discharge plan: TBD. Likely discharge to [facility] facility by hospitalist service when medically appropriate to do so. Resuscitation Status: DNR/DNI:Do Not Resuscitate/Intubate Jordon Everett PA-C Dec 15, 2016 08:36
[2016-12-15] MEDS ORDERED: 0.9% Sodium Chloride 250 ML ONE (10:51)
[2016-12-15] MEDS: DAPTOmycin Inj 500 MG in 0.9% Sodium Chloride 50 ML IV SCH (11:04)
--- NOTE | 2016-12-15 11:12 | NUR ---
Spoke with Selina Evans [phone] and she is expecting fax on patient. Sent complete clinicals to [phone]. Patient is ready to transfer today and Selina is aware of this. Updated LOGGING RAFTER LABORER
--- NOTE | 2016-12-15 11:29 | PROG NOTE ---
[address] [address] PROGRESS NOTE PATIENT: OSMAN WOLFE : 1950 MR#: [id number] ADMIT: 12/13/2016 JOB ID: [id number] DATE: 12/15/2016 INFECTIOUS DISEASE FOLLOWUP NOTE: REASON FOR FOLLOWUP: Extensive right leg abscess, polymicrobial. INTERVAL HISTORY: Recall that this is the elderly woman with lupus and neurologic issues who was admitted with an extensive right leg abscess. The patient was taken to the operating room late yesterday afternoon and an extensive wound was debrided. The area of infection was estimated 30 x10 cm which had foul smell and pus involving the anterior, medial and lateral compartments of the leg below the knee. A large defect that remained was covered with a wound VAC, and the patient is currently recovering in the [facility]. Multiple cultures were done. This morning the patient is recovering in the [facility]. She tells us that she has considerable pain in the right lower extremity and that she often feels cold but has no fevers, chills, or sweats per se. No headache. She is chronically somewhat short of breath, as she has underlying COPD but is no worse than normal, and she has a minimal amount of cough. No GI symptoms are reported. PHYSICAL EXAMINATION: Reveals an uncomfortable woman sitting up in her [facility] bed. She is afebrile at 37.1 temperature, pulse 99, respiratory rate 20, blood pressure 87/50, saturating well on room air. Examination of the oral cavity is unremarkable. No thrush or pharyngitis. Lungs with some scattered wheezes bilaterally. The abdomen is soft and nontender. The right lower extremity has a very large wound VAC present below the knee. There is surrounding circumferential erythema and tenderness. The entire area is fairly warm, and there is a great deal of sanguis drainage piling up in the collection vessel for the wound VAC. LABORATORIES: Include white count 11,000, platelet count 367. Creatinine 0.99. Procalcitonin 0. CPK 104. Urinalysis with 6-10 white cells. The cultures from the leg are growing a multitude of organisms according to the micro lab. This includes group B strep, which appears to be the predominant organism, as well as corynebacterium, possible Staph aureus, and at least one gram-negative guicho, which may or may not be an anaerobe. Also notable is the fact that the nasal MRSA screen was positive, though there is no definitive evidence she had MRSA in the wound itself. Blood cultures are negative. IMAGING: The initial MRI of the leg done preop is still not available after 48 hours. I spent quite a time on hold trying to get the official report from Radiology but recall that yesterday I did review the films with the radiologist but there is still no official report. IMPRESSION: This unfortunate woman has suffered a really massive polymicrobial abscess of her right lower extremity which has now been surgically evacuated. There is no evidence for group A streptococcus, and there is no evidence for a necrotizing fasciitis process, so I think we can safely drop the clindamycin, which we had been in place for coverage. I would continue with the very broad-spectrum daptomycin and meropenem, however, while we await final identification of what will likely be multiple organisms, which may or may not include methicillin-resistant Staphylococcus aureus. I am specifically avoiding vancomycin because this patient has lupus and multiple medical issues, and I do not wish to subject her to any risk of nephrotoxicity. RECOMMENDATIONS: 1. Drop clindamycin today. 2. Continue with daptomycin and meropenem through the weekend until we finally sort out all the different organisms found in these cultures. 3. I expect this patient will have a long and difficult convalescence given the enormous size and destructive nature of this polymicrobial abscess.
--- NOTE | 2016-12-15 11:58 | NUR ---
Wound Care Received order for management of NPWT that was placed on pt's right lateral leg interoperatively. Rounded on patient today, NPWT maintaining an excellent seal, replaced canister in unit as it had 375 ml of drainage (nearly full).
[2016-12-15] MEDS: oxyCODONE ER 10 mg ER12 Tablet PO SCH ×2 (13:48→21:17)
--- NOTE | 2016-12-15 15:27 | NUR ---
Social Work: Continued Discharge Planning D: Pt discussed in morning rounds. Per MD team, pt will likely require halfway hospitalization due to wound care. Team at rounds discussed a possible referral/transfer to [facility]. ANALYTICS ANALYST provided referral. WORKERS COMPENSATION COORDINATOR and MD team have met with pt about possible transfer. Pt initially resistant idea due to it being in [place] however would prefer to discharge to [facility] as opposed to a assisted facility. Pt is agreeable to transfer if accepted. [facility] has sent pt's referral to medical appointment clerk for secondary approval. They will update WORKERS COMPENSATION COORDINATOR and AUBREY with final decision by days end. A: Pt who will likely require equipment operator intermodal yard wound care P: Evolving; [facility] is reviewing pt for admission. WORKERS COMPENSATION COORDINATOR to continue to follow. JAMA Koehler
--- NOTE | 2016-12-15 15:48 | NUR ---
Activity/Pain Pt refused to work initially with PT this morning. Pt was persuaded to work with PT when she needed to void and was agreeable to get up to the bedside commode. Pt tolerated well with many vocalizations of pain. Pt refused to get out of bed again to use the BSC when she had to have a bowel movement. She made a statement to MINE SURVEYOR that she would just go ahead and void in her brief. Pt states pain in both her right leg and her back. States pain is 7/10. Pt was given morning pain medication and voiced little to no relief. was made aware. Pt was administered her pain medications 2 Tab 5/325 [place] PO at 1130 stating 10/10 pain. Upon reassessment pt was sleeping, FELDT score 0. At next assessment at 1315 pt stated 10/10 pain, pt was administered 10mg Oxycotin. Upon reassessment pt was sleeping.
--- NOTE | 2016-12-15 16:18 | PCM.PNORTH ---
Subjective Date of Service: Dec 15, 2016 Visit Information: Reason for Visit Right Leg Cellulitis Surgery/Surgery Date Post-Op Day # Date of Admission: Dec 13, 2016 at 20:39 Hospital Day # Subjective Pt states ankle and lower leg is feeling better with the washout yesterday. She dozes off repeatedly during exam Postop General: No Complaints, No Shortness of Breath, No Chest Pain, Good Appetite Pain Management: PO, IV Push Objective Exam Objective Gen - dozing off during exam, arousable but get agitated and states she wants to sleep Ext - Wound vac intact to right lower leg Compartments soft +DF/PF ankle Vital Signs and I/O Vital Sign - Last Date Time Temp Pulse Resp B/P Pulse Ox O2 Delivery O2 Flow Rate FiO2 12/15/16 11:37 37.3 92 18 77/48 97 Room Air 12/14/16 17:35 2 Intake and Output 12/14/16 12/14/16 12/15/16 Cumulative From/Thru 15:00 23:00 07:00 12/13/16 16:15 - 12/15/16 06:18 Intake Total 2000 ml 1735 ml 5985 ml Output Total 410 ml 950 ml 2460 ml Balance 1590 ml 785 ml 3525 ml Intake Oral 0 ml IV Total 2000 ml 965 ml 5215 ml TPN/PPN 770 ml 770 ml Output Urine Total 400 ml 950 ml 2450 ml Estimated Blood Loss 10 ml 10 ml # Voids 1 # Bowel Movements 0 Lab & Micro Results Laboratory Tests Test 12/15/16 03:10 White Blood Count 11.7th/mm3 (3.8-10.1) Red Blood Count 2.85mil/mm3 (3.90-5.20) Hemoglobin 8.6g/dL (12.0-15.6) Hematocrit 26.8% (35.0-46.0) Mean Corpuscular Volume 94.0fL (81-100) Mean Corpuscular Hemoglobin 30.2pg (27.0-35.0) Mean Corpuscular Hemoglobin Concent 32.1% (32.0-37.0) Red Cell Distribution Width 13.9% (12.3-15.4) Platelet Count 367bil/L (150-400) Neutrophils (%) (Auto) 81.3% (40-74) Lymphocytes (%) (Auto) 7.8% (14-46) Monocytes (%) (Auto) 9.0% (4-12) Eosinophils (%) (Auto) 1.5% (0-5) Basophils (%) (Auto) 0.1% (0-3) Prothrombin Time 10.7sec (8.1-12.5) Prothromb Time International Ratio 1.00ratio Sodium Level 141mEq/L (134-144) Potassium Level 3.6mEq/L (3.5-5.2) Chloride Level 104mEq/L (97-108) Carbon Dioxide Level 27mmol/L (18-29) Blood Urea Nitrogen 14mg/dL (8-27) Creatinine 0.99mg/dL (0.57-1.00) Estimat Glomerular Filtration Rate 81mL/min (>59) Glucose Level 106mg/dL (60-99) Lactic Acid Level 0.8mmol/L (0.4-2.0) Calcium Level 7.2mg/dL (8.5-10.1) Total Creatine Kinase 104U/L (21-215) Procalcitonin < 0.05ng/mL (See Comment) Microbiology 12/13/16 Blood Culture - Preliminary, Resulted NO GROWTH AFTER 24 HOURS 12/13/16 MRSA Surveillance Culture - Final, Complete Screen Positive For Mrsa 12/13/16 Urine Culture - Final, Complete Mixed Urogenital Rolanda 12/14/16 Gram Stain - Final, Resulted 12/14/16 Culture & Sensitivity - Preliminary, Resulted Beta Streptococcus Group B 12/14/16 Anaerobic Culture, Resulted Pending 12/14/16 Fungal Culture, Resulted Pending Result Diagram: 12/15/1630912/15/16309 SURGICAL WOUND : Drain Location Body Site: Leg Wound Drainage Type: Wound Vac Activity: Activity per PT, Ambulate with PT (nonweightbearing at this time secondary to wound VAC and pending return to the OR for repeat I&D and likely wound closure. Patient may participate in bed mobility and upper extremity mobility as able.) Catheters: None Assessment & Plan Impression R leg abscess/cellulitis with wound vac Problems: Plan Discussed case with Dr Almonte yesterday. I will be taking patient back tommorrow for repeat I/D with possible primary closure vs reapplication of a wound vac This was discussed to patient also via PA this AM Unfortunately pt is dozing off during discussion and thus nursing will go over consent and I will talk to patient again tommorrow before surgery to discuss risks/benefits/alternative/indications in the pre-op area Resuscitation Status: DNR/DNI:Do Not Resuscitate/Intubate Odilon Bauer DO Dec 15, 2016 16:18
--- NOTE | 2016-12-15 18:59 | PCM.PNMED ---
Subjective Date of Service Dec 15, 2016 Subjective Patient is a 66 year old female with a history of lupus, neuropathy, COPD, TIA, CVA . Admitted for right lower leg cellulitis, abscess, and planned I&D today. Hospital Day 2. Post op day 1 Overnight: no acute events reported. Today: Patient states her right lower leg is feeling better after surgery yesterday, but she stated that the pain medication is not fully covering her pain. She is very tired during the interview and falls asleep repeatedly. Patient denies, fever, chills, constipation, change in vision, headache, weakness. ROS negative except for mentioned above. Exam Vital Signs Vital Sign - Last Date Time Temp Pulse Resp B/P Pulse Ox O2 Delivery O2 Flow Rate FiO2 12/15/16 05:01 90 12/15/16 02:54 37.0 24 86/49 94 Room Air 12/14/16 17:35 2 Intake and Output 12/14/16 12/14/16 12/15/16 Cumulative From/Thru 15:00 23:00 07:00 12/13/16 16:15 - 12/15/16 06:18 Intake Total 2000 ml 1735 ml 5985 ml Output Total 410 ml 950 ml 2460 ml Balance 1590 ml 785 ml 3525 ml Intake Oral 0 ml IV Total 2000 ml 965 ml 5215 ml TPN/PPN 770 ml 770 ml Output Urine Total 400 ml 950 ml 2450 ml Estimated Blood Loss 10 ml 10 ml # Voids 1 # Bowel Movements 0 Exam General: Alert, Oriented X3, Cooperative, No Acute Distress Head: Normocephalic, atraumatic. External ears normal. Eyes: PERRLA, EOMI. Anicteric sclerae. Mouth: Mouth Normal, Mucous Membranes Moist/[place] Neck: Neck supple with full range of motion. Chest & Lungs: Clear to auscultation bilaterally with no crackles, wheezes, or rhonchi. Cardiovascular: Regular Rate/Rhythm, Normal S1, Normal S2, No Murmurs/Rubs/ Gallops Abdomen: Non-tender, Non-distended, No masses, Normoactive bowel tones, Soft Musculoskeletal: Normal Range of Motion, Extremities: strength 4/4 in all extremities b/l, contractures of hands noted b /l, right lower leg surgical wound present, wound vac is draining serosanguineous fluid. Moderate edema noted up to mid butler bilaterally. No cyanosis/clubbing Neurological: Grossly Neurologically Intact, Normal Speech, Strength Normal 4/ 4 ext, Sensation Intact, IVs and Medications Medications Reviewed: Medications were reviewed in detail Lab and Diagnostics Result Diagram: 12/15/160 12/15/16309 X-Rays, CTs and MRIs Date of Service: 12/13/16 9036 PROCEDURE: X-RAY CHEST ONE VIEW, PORTABLE ([id number]) IMPRESSION: No acute cardiopulmonary disease Dictated by: Anthony Aldrich M.D. on 12/13/2016 at 19:48 Date of Service: 12/13/161999 PROCEDURE: CT TIBIA FIBULA RIGHT W/CONTRAST ([id number]) INDICATIONS: R leg abscess IMPRESSION: Possible rim-enhancing abscess in the anterior soft tissues at the mid tibial diaphyseal level, although unclear if this communicates with the skin surface. Please correlate with clinical exam findings Possible osteonecrosis/AVN involving the distal tibial diametaphysis. Please correlate clinically and with radiographs. Confirmation with ankle MRI could be performed as clinical warranted. Severe circumferential subcutaneous and soft tissue swelling in keeping with cellulitis. Dictated by: Anthony Aldrich M.D. on 12/13/2016 at 20:50 Assessment & Plan Patient is a 66 year old female with a history of lupus, neuropathy, COPD, TIA, CVA . Admitted for right lower leg cellulitis, abscess, and planned I&D today. Hospital Day 2. 1.Cellulitis with abscess, present on admission. Acute. Improving - Surgically Incised and debrided 12/14/16 - CT showed "Possible rim-enhancing abscess in the anterior soft tissues at the mid tibial diaphyseal level, although unclear if this communicates with the skin surface. Please correlate with clinical exam findings.Possible osteonecrosis/AVN involving the distal tibial diametaphysis. Please correlate clinically and with radiographs. Confirmation with ankle MRI could be performed as clinical warranted.Severe circumferential subcutaneous and soft tissue swelling in keeping with cellulitis." - Xray of tibia and fibula, MRI with contrast ordered AM 12/14/16, received call from radiologist in morning before formal report was submitted impression was an abscess tracking down right lower leg approximately 9 cm, with fluid and air bubbles present, noted that tracking infection is close to invading fascial layer. - Wound swabbed for culture and sensitivities, + beta streptococcus - Dr. Almonte of ortho consulted, took patient to OR 12/14/16 abscess I&D [id number] tissue excised down to fascia. Patient will be taken back to OR tomorrow for repeat I&D vs washing and primary closure vs would vac. - NPO @ midnight - wound vac in place and draining serosanguineous fluid - MRSA swab positive - Hydromorphone IV for breakthrough pain - Oxycodone long acting 10 mg for post surgical pain - Oxycodone 5 mg PRN breakthrough pain - Per ID continue maximal doses of clindamycin, meropenem, and daptomycin, await final cultures and surgical debridement. - Infectious disease consulted we appreciate their time and recommendations 2.COPD - continue home dose Advair 3.Neuropathy - continue home dose gabapentin - Vicodin held 4.Lupus - continue to monitor 5.GERD - patient not on any medication for this 6.Allergic rhinitis - continue home cetirizine - Acetaminophen as needed for mild pain/fever/headache - Bowel regimen as needed - Antiemetic as needed DVT: anticoagulation held due to I&D in am, SCD not appropriate due to lesion in lower extremity GI: not indicated CODE: DNR/DNI Disposition: Likely discharge to [facility] post surgical I&D and debridement likely stay <48 hours. VTE Mechanical Devices: Intermittant Pneumatic CD Resuscitation Status: DNR/DNI:Do Not Resuscitate/Intubate Attending Statement The patient was seen and examined together with Dr. Segura on 12/15/2016 and I agree with the history, exam and plan as outlined in the note above. . ALBERT SEGURA DO Dec 15, 2016 06:40 Arian Hamilton MD Dec 16, 2016 15:11
[2016-12-15] MEDS ORDERED: Vancomycin Serum Trough XX ONE (20:30)
[2016-12-16] VITALS (12 sets, daily range): BP systolic 89–125; BP diastolic 48–102; PULSE 80–105; RESP 16–21; O2SAT 83–100
[2016-12-16] MEDS: Sodium Chloride LOK Flush 10 mL Syringe IV SCH ×6 (00:37→22:07)
[2016-12-16] MEDS: Meropenem Inj 2,000 MG in 0.9% Sodium Chloride 100 ML IV SCH ×3 (00:37→16:44)
[2016-12-16 04:05] LABS: BASOPHILS % (AUTO) 0.1 % (0-3); EOSINOPHILS % (AUTO) 0.3 % (0-5); Mean Corpuscular Hemoglobin 29.9 pg (27.0-35.0); Mean Corpuscular Volume 93.3 fL (81-100); NEUTROPHILS % (AUTO) 87.4 % (40-74); Platelet Count 316 bil/L (150-400)
[2016-12-16] MEDS: 0.9% Sodium Chloride 1,000 ML IV SCH ×2 (04:51→17:21)
[2016-12-16] MEDS: HYDROmorphone 1 mg/mL Inj IVPUSH PRN (05:13)
[2016-12-16] MEDS: HYDROcodone-APAP 5-325 mg Tablet PO PRN ×3 (05:13→16:45)
[2016-12-16] MEDS: DAPTOmycin Inj 500 MG in 0.9% Sodium Chloride 50 ML IV SCH (07:45)
[2016-12-16] MEDS: oxyCODONE ER 10 mg ER12 Tablet PO SCH ×2 (07:46→21:10)
[2016-12-16] MEDS: Senna-Docusate 8.6-50 mg Tablet PO SCH ×2 (07:46→21:06)
[2016-12-16] MEDS ORDERED: Lactated Ringer's 1,000 ML IV ONE (07:47)
--- NOTE | 2016-12-16 08:30 | NUR ---
Off unit Patient off unit to OR for I&D. Report given to BRICK MOLDER HAND. Addendum: 12/16/16 at 1806 by BETHEL CADENA RN Patient returned to unit around 1130. Patient A&Ox3. VSS. Leg pain 08/28, prn vicodin given. Pain brought down to 05/28.
--- NOTE | 2016-12-16 09:09 | PCM.HPANE ---
Patient Data Surgeon Admitting Provider:Everardo Javier MD Attending Provider:Everardo Javier MD Primary Care Physician:Ellie Rabago Other Provider: Reason for Visit Right Leg Cellulitis Ht/WT & BMI Height (Feet): 5 Height (Inches): 9.00 Weight (Kilograms): 77.500 Body Mass Index 26.64 Allergies Coded Allergies: No Known Allergies (Verified Allergy, Unknown, 12/13/16) Uncoded Allergies: HAYFEVER (Allergy, Unknown, 06/11/16) Past Anesthesia History Anesthesia History: Denies:: Abnormal Airway, Anesthesia Reactions, Difficult Intubation, Fam Anesthesia Reaction, Fam Malignant Hypertherm, Malignant Hyperthermia Diabetes History Hx Diabetes?: No Current Bedside Blood Glucose: 102 MRSA MRSA: No Medications Hypertension Medication: No Home Meds Incl Beta Karly: No Reported Medications Multivitamin (Multivitamins)1 Each Capsule1 Each PO DAILY 12/14/16 Fluticasone Propionate (Flonase Allergy Relief)50 Mcg/Actuation [place].susp1 [place] NASAL QID 12/14/16 Albuterol HFA (Proair HFA)8.5 Gm Hfa.aer.ad2 Puffs INH Q4H PRN For Shortness of Breath #9 12/14/16 Hydrocodone-Acetaminophen 10-325 mg 1 Each Tablet1 Tab PO Q4H PRN For Pain #150 12/14/16 Furosemide 20 Mg Tab20 Mg PO BID #60 12/14/16 Gabapentin 400 Mg [id number] Mg PO QID #120 12/14/16 Aspirin Chew 81 Mg Chew81 Mg PO DAILY Ref 0 06/11/16 Discontinued Reported Medications Cetirizine-Expunged Drug, Do Not Renew! 10 Mg Rhbqgc59 Mg PO DAILY 10/01/13 Ondansetron ODT 8 MGTab (Zofran ODT 8 MG Tab)8 Mg Tab.rapdis8 Mg SL/PO Q4 PRN # 20 TAB 8 MG 10/01/13 Phenylephrine Hcl (Nasal [place])30 Ml Spray1 [place] NS TID PRN 10/01/13 Loperamide-Expunged Drug, Do Not Renew! (Imodium-Expunged Drug, Do Not Renew!)2 Mg Tablet2 Mg PO PRN 10/01/13 Hydrocod/APAP-Expunged, Do Not Renew! (VICODIN 7.5/325-Expunged Drug, Do Not Renew)1 Ea Tablet1 Ea PO Q4-6H PRN 10/01/13 HYDROcodone/APAP-Expunged Drug, Do Not Renew! (Vicodin 10/325-Expunged Drug, Do Not Renew!)1 Tab Tablet1 Tab PO QID PRN #20 TAB 10/01/13 Fluticasone-Expunged Drug, Do Not Renew! (Flonase-Expunged Drug, Do Not Renew!) 120 Sprays [id number] Sprays NA PM PRN 10/01/13 Docusate Sod-Expunged Drug, Do Not Renew! 250 Mg Erx647 Mg PO HS 10/01/13 Albuterol-Expunged Drug, Do Not Renew! 200 Puff/8.5 Gm Hfa.aer.ad200 Puff IH Q4 PRN 10/01/13 Ipratropium-Expunged Drug, Do Not Renew! 345 [place]/30 Ml Spray2 Spr NA TID #30 ML 10/01/13 Folic Acid/Multivits-Min/Lut (Multi-Vitamin Gummies)1 Each Tab.chew1 Each PO DAILY 10/01/13 Folic Acid-Expunged Drug, Do Not Renew! 1 Mg Tablet1 Mg PO DAILY 05/16/12 Cholecalciferol-Expunged Drug, Do Not Renew! (Vitamin D3-Expunged Drug, Do Not Renew!)1,000 Unit Tab.chew1,000 Unit PO DAILY 05/16/12 Sennosides-Expunged Drug, Do Not Renew! (Senna Soft-Expunged Drug, Do Not Renew! )15 Mg Yptdoj92 Mg PO HS 05/16/12 Gabapentin-Expunged Drug, Do Not Renew! (Neurontin-Expunged Drug, Do Not Renew!) 400 Mg Iqwkvmq144 Mg PO QID 05/16/12 History History of ENT Problems?: No HEENT History: Positive for:: Sinus Problem Denies:: Abnormal Airway Difficult Intubation Dysphagia Hearing Problem Denture Type: Full- Upper Full- Lower Hx of Heart Problems?: No Cardiovascular History: Denies:: Atrial Fibrillation Cardiac Surgery Chest Pain Congestive Heart Failure Heart Murmur Hypertension Irregular Heartbeat Pacemaker Thrombophlebitis Valvular Heart Disease Other History/Comments Cardiac ROS negative. Denies PR, CHF, CAD, CP. Activity is limited, but denies CP and SOB with activity Hx of Respiratory Problem?: Yes Respiratory History: Positive for:: COPD (patient states she does does not have copd but it is noted in chart history) Dyspnea Pneumonia (X 2 WHEN IN LATE 20'S) Denies:: Asthma Chest Surgery Cough Emphysema Hemoptysis Tuberculosis Other History/Comment Breathing at baseline; no use of MDI today. Symptoms at baseline level Hx Neurologic Problems?: No Neurological History: Positive for:: CVA (1989 SLIGHT CVA) Denies:: Dementia Dizziness Headaches Parkinson's Disease Seizures Other History/Comments CVA in the distant past, no motor residuals, unable to recall details. Hx of GI Problems?: No Gastrointestinal History: Positive for:: Cirrhosis Gastroesphageal Reflux Denies:: Diverticulitis Gastrointestinal Bleeding Heartburn Hepatitis Hiatal Hernia Rectal Bleeding Hx of Problems?: No Female Hx: Denies:: Currently Hx Musculoskeletal Problems?: Yes Musculoskeletal History: Denies:: Joint Replacement Hx of Psycho/Social Problems?: No Psycho Social History: Denies:: Anxiety Bipolar Disorder Hx Depression Suicide Attempt Hx Surgeries?: Yes Hx Any Other Health Problems?: No Other History: Positive for:: Hospitalization Denies:: Cancer Endocrine Disease Thyroid Disease Hx Diabetes: NoBedside Blood Glucose: 102 Hx Alcohol Use: NoHx Substance Use: No Smoking Status: Smoker Current Status UNK Have You Smoked inLast 12 mo: YesApprox How Many Cigarettes/day: 10 Stop/Bang Treated for Sleep Apnea?: No Do You Have a CPAP Machine?: No Risk Assessment Category Category 1A: Patient has history of documented sleep apnea, and HAS NOT received any narcotic, sedative or anesthesia administration during this stay. Category 1B: Patient has history of documented sleep apnea, and HAS received any narcotic , sedative or anesthesia administration during this stay Category 2: Patient has SUSPECTED Obstructive Sleep Apnea, and HAS received any narcotic , sedative or anesthesia administration during this stay. Category 3: Patient has SUSPECTED Obstructive Sleep Apnea and HAS NOT received narcotic, sedative or anesthesia administration during this stay. Category 4: Outpatient in Procedural Areas with known sleep apnea or who screen positive for High Risk via the STOP/BANG questionnaire. Exam Exam Vital Signs Vital Signs Date Time Temp Pulse Resp B/P Pulse Ox O2 Delivery O2 Flow Rate FiO2 12/16/16 07:39 36.8 88 18 89/51 97 Nasal Cannula 2.00 12/16/16 03:05 37.4 105 16 102/63 96 Nasal Cannula 2.00 General Appearance: Alert, Oriented X3, Cooperative HEENT/AIRWAY: MP 2 Lungs: Clear to Auscultation Heart: Exam Unremarkable Meds/Labs/Diagnostics Admission Meds Current Medications Sodium Chloride (Normal Saline) 250 ml @ STK-MED ONCE .ROUTE Last administered on 12/15/16 11:03; Start 12/15/16 at 10:51; Stop 12/15/16 at 10:53 ; Status DC Oxycodone HCl 10 mg 10 mg BID PO Last administered on 12/16/16 07:46; Start at 11:20 Lactated Ringer's (Lr) 1,000 ml @ STK-MED ONCE IV Last administered on 12/16 07:47; Start 12/16/16 at 07:47; Stop 12/16/16 at 07:50; Status DC Bedside Blood Glucose: 102 Labs Test 12/13/16 17:58 12/13/16 21:59 12/14/16 02:45 12/15/16 03:10 Magnesium Level 1.8mg/dL (1.6-2.6) Total Bilirubin 0.2mg/dL (0.0-1.2) Aspartate Amino Transf (AST/SGOT) 16U/L (0-50) Alanine Aminotransferase (ALT/SGPT) 6U/L (0-32) Alkaline Phosphatase 112U/L (25-165) Troponin T < 0.010ug/L (0.0-0.011) Total Protein 6.6g/dL (6.4-8.4) Urine Color Yellow (YELLOW) Urine Appearance Clear (CLEAR,HAZY) Urine pH 6.0 (5.0-8.0) Urine Specific [place] 1.010 (1.003-1.035) Urine Protein Negativemg/dL (NEG,TRACE) Urine Glucose (UA) Negativemg/dL (NEGATIVE) Urine Ketones Negativemg/dL (NEGATIVE) Urine Occult Blood Negative (NEGATIVE) Urine Nitrite Negative (NEGATIVE) Urine Bilirubin Negative (NEGATIVE) Urine Urobilinogen Normalmg/dL (NORMAL) Urine Leukocyte Esterase Negative (NEGATIVE) Urine RBC 0-2/hpf (0-2) Urine WBC 6-10/hpf (0-5) Urine Epithelial Cells Few/hpf (NONE-MOD) Urine Crystals None seen (NONE SEEN) Urine Bacteria None/hpf (NONE-FEW) Urine Hyaline Casts None/lpf (NONE) Urine Granular Casts None seen (NONE SEEN) Urine Waxy Casts None seen (NONE SEEN) Urine Red Blood Cell Casts None seen (NONE SEEN) Urine White Blood Cell Casts None seen (NONE SEEN) Urine Mucus None seen (None Seen) Urine Trichomonas None seen (NONE SEEN) Urine Yeast None (NONE SEEN) Urine Culture Reflexed Indicated Erythrocyte Sedimentation Rate 32mm/hr (0-40) Prothrombin Time 10.7sec (8.1-12.5) Prothromb Time International Ratio 1.00ratio Test 12/16/16 03:34 White Blood Count 17.8th/mm3 (3.8-10.1) Red Blood Count 2.84mil/mm3 (3.90-5.20) Hemoglobin 8.5g/dL (12.0-15.6) Hematocrit 26.5% (35.0-46.0) Mean Corpuscular Volume 93.3fL (81-100) Mean Corpuscular Hemoglobin 29.9pg (27.0-35.0) Mean Corpuscular Hemoglobin Concent 32.1% (32.0-37.0) Red Cell Distribution Width 14.2% (12.3-15.4) Platelet Count 316bil/L (150-400) Neutrophils (%) (Auto) 87.4% (40-74) Lymphocytes (%) (Auto) 4.7% (14-46) Monocytes (%) (Auto) 7.0% (4-12) Eosinophils (%) (Auto) 0.3% (0-5) Basophils (%) (Auto) 0.1% (0-3) Sodium Level 138mEq/L (134-144) Potassium Level 3.7mEq/L (3.5-5.2) Chloride Level 103mEq/L (97-108) Carbon Dioxide Level 24mmol/L (18-29) Blood Urea Nitrogen 10mg/dL (8-27) Creatinine 0.71mg/dL (0.57-1.00) Estimat Glomerular Filtration Rate 118mL/min (>59) Glucose Level 100mg/dL (60-99) Lactic Acid Level 0.8mmol/L (0.4-2.0) Calcium Level 6.8mg/dL (8.5-10.1) Total Creatine Kinase 93U/L (21-215) Albumin 2.2g/dL (3.4-5.0) Procalcitonin 0.27ng/mL (See Comment) Plan Impression Patient chart reviewed, patient interviewed and anesthestic plan with risks, benefits, and alternatives discussed, and informed consent obtained. NPO Status: 12/13/16 MIDNIGHT ASA Physical Status: ASA3 Severe Disease Anesthetic Plan: GA Bene/Risks/Altern/Consents: Yes HP Complete Prior to Induction: Yes Rolando Wood MD Dec 16, 2016 09:09
--- NOTE | 2016-12-16 10:24 | NUR ---
Social Work: Continued Discharge Planning D: Pt discussed in am rounds. Pt is going back for a second I&D and is expected to transfer to [facility] today after. Per BIOPHYSICS TEACHER note, pt has been accepted by Dr. Bernardo at [facility]. t/c to Selina Ceja, Patient Pit Worker [employer] at [facility] ([phone]) to discuss transfer and confirm that they have a bed available for the pt today. Left message requesting return phone call. A: Pt who lives at home, alone P: Anticipate pt to transfer to [facility] pending bed. JAMA to update MD team once communication is received from [facility]. JAMA Koehler Addendum: 12/16/16 at 1125 by PABLO LUIS Left second message for Selina ceja with [facility] for bed status. Addendum: 12/16/16 at 1459 by PABLO LUIS AIRCRAFT MAINTENANCE ENGINEER received t/c from Selina Ceja at [facility]. They can accept the pt today at their [facility]. They cannot accept pt any sooner than 7:00pm tonight. They agreed to a 6:00pm transfer. Dr. Bernardo ([phone]) is the accepting MD. Dr. Segura notified and will begin working on pt's discharge summary and orders for transfer. AIRCRAFT MAINTENANCE ENGINEER to fax orders to ([phone]) RN to RN phone number [phone] AIRCRAFT MAINTENANCE ENGINEER met with pt at bedside. Pt is agreeable to discharge down to [facility]. Pt's electronic wheelchair is at bedside. t/c to pt's son, Dereck, to request that he come to pickup the wheelchair so that it does not need to be transported down with the pt. No answer- requested urgent return phone call. AIRCRAFT MAINTENANCE ENGINEER notified outreach analyst of wheelchair issue. Addendum: 12/16/16 at 1607 by PABLO HUITRON SS Per ortho note, they would like to take pt back to OR on Sunday. MD is canceling transfer to [facility]. AIRCRAFT MAINTENANCE ENGINEER notified Selina Ceja with [facility]. mine administrator supervisor notified to cancel transport.
[2016-12-16] MEDS ORDERED: Lactated Ringer's 1,000 ML IV SCH (10:38)
[2016-12-16] MEDS ORDERED: Lactated Ringer's 500 ML IV PRN (10:38)
[2016-12-16] MEDS ORDERED: fentaNYL-PF 50 mCg/mL 2 mL Inj IVPUSH PRN (10:40)
[2016-12-16] MEDS ORDERED: Ondansetron 2 mg/mL 2 mL Inj IVPUSH PRN (10:40)
[2016-12-16] MEDS ORDERED: HYDROmorphone 1 mg/mL Inj IVPUSH PRN (10:40)
[2016-12-16] MEDS ORDERED: Albuterol-Ipratropium 3 mL Inhalation Solution NEB PRN (10:40)
[2016-12-16] MEDS ORDERED: MetoCLOpramide 5 mg/mL 2 mL Inj IVPUSH PRN (10:40)
[2016-12-16] MEDS ORDERED: Dexamethasone 4 mg/mL Inj IVPUSH PRN (10:40)
[2016-12-16] MEDS ORDERED: Phenylephrine 10,000 mCg/mL Inj IVPUSH PRN (10:40)
[2016-12-16] MEDS ORDERED: EPHEDrine Sulfate 50 mg/mL Inj IVPUSH PRN (10:40)
--- NOTE | 2016-12-16 10:40 | PCM.ANEP1 ---
Post Anesthesia Phase 1 PACU Phase 1 Assessment Date of Service: Dec 13, 2016 Vital Signs Vital Signs Date Time Temp Pulse Resp B/P Pulse Ox O2 Delivery O2 Flow Rate FiO2 12/16/16 10:35 36.3 100 20 110/92 94 Nasal Cannula 3 12/16/16 09:50 Supplement Oxygen 12/16/16 07:39 36.8 88 18 89/51 97 Nasal Cannula 2.00 12/16/16 03:05 37.4 105 16 102/63 96 Nasal Cannula 2.00 Anesthetic Administered: GA Level of Alertness: Sleepy, easy to arouse HERRON's with Equal Strength: Yes Pain: No Pain Scale Score: 3 Nausea or Vomiting: No Oxygen Delivery: Nasal Cannula Lungs: Clear to Auscultation Dermatome Level: Full Sensation Rolando Wood MD Dec 16, 2016 10:40
--- NOTE | 2016-12-16 11:39 | PCM.ANEP2 ---
Post Anesthesia Evaluation ASA/CMS Post Anesthesia VS in Patient's Normal Range?: Yes Resp Stable; Airway Patent?: Yes CV Function & Hydration Stable: Yes Mental Status Recovered?: Yes Pain control Satisfactory?: Yes N/V Control Satisfactory?: Yes Rolando Wood MD Dec 16, 2016 11:39
--- NOTE | 2016-12-16 11:51 | OP ---
[address] [address] OPERATIVE REPORT PATIENT: OSMAN WOLFE : 1950 MR#: [id number] ADMIT: 12/13/2016 JOB ID: [id number] DATE OF SURGERY: 12/16/2016 PREOPERATIVE DIAGNOSIS(ES): 1. Right lower leg cellulitis and abscess. 2. Right lower leg persistent wound. POSTOPERATIVE DIAGNOSIS(ES): 1. Right lower leg cellulitis and abscess. 2. Right lower leg persistent wound. PROCEDURE: 1. Irrigation and debridement of right leg including the skin and subcutaneous tissue and fat measuring 18 x 1 cm in dimension. 2. Re-application of a BME Wound VAC to the right leg for a wound measuring 3.5 cm in diameter as well as an incisional portion of the VAC measuring 15 mm in length. SURGEON: Odilon Bauer D.O. ANESTHESIA: General. HISTORY: The patient is a 66-year-old female that presented to the emergency department with right lower leg swelling and pain. She was originally consulted and seen by Troy Almonte MD and taken for an incision and drainage two days prior. There was an abscess that was appreciated. No deep extension past the lateral fascia was seen. The patient was VAC'd due to the amount of drainage with a plan to take her back for repeat I and D with possible primary closure versus re-vacing. Dr. Almonte asked me to take over the care over the weekend as I was the on-call physician, and he was to be out of town. I thus discussed the case with him as well as the primary team and the patient the risks, benefits, and indications to proceed with a repeat I and D of the right leg with possible primary closure versus reapplication of the Wound VAC. She understood the risks included, but not limited to, neurovascular injury, tendon injury, failure to resolve the infection, stiffness, persistent pain, all of which may require further intervention. Patient had all questions answered. Consent was signed and placed in the chart. PROCEDURE IN DETAIL: The patient was brought to the operative suite and placed supine on the operating room table. Surgical time-out performed. Everyone the room was in agreement. After appropriate anesthesia was obtained, the patient's Wound VAC was removed. There was significant murky fluid still emanating from the wound. The right lower extremity was then prepped and draped in a sterile fashion. The patient's wound was explored, and provisionally irrigated with 3 L of normal saline. This removed a significant amount of clot and the cloudy fluid from the wound. No further areas of purulence were appreciated. The fascia was intact laterally. The patient's skin edges specifically to the inferior three quarters of the previous incision were significantly tenuous. The skin edges were then debrided sharply utilizing a scalpel, removing approximately 0.5 cm on both sides of the entire incision. This consisted again of removal of a 18 x 1 cm in total skin and subcutaneous tissue sharply with a scalpel. Next, further irrigation was then performed with an additional 3 L of normal saline. The patient's wound was then reapproximated starting at the proximal and distal margins utilizing a combination of a trauma stitch as well as vertical mattresses. The closure was also supplemented with several simple sutures with 3-0 nylon. The wound was able to be closed proximally and distally but the area measuring 3.5 cm in diameter to the mid to proximal aspect of the incision was unable to be closed without significant undue tension. Thus this area was left open. The skin edges were then dressed with Xeroform, followed by application of a Wound VAC. The Wound VAC was placed within the 3.5 cm remaining open wound and extended both proximally and distally on top of the incision for an incisional VAC to help pull fluid from the wound. Wound VAC was then applied. Excellent seal was achieved. The right lower extremity was then dressed with soft cast padding as well as an Bryan wrap. ESTIMATED BLOOD LOSS: 25 cc. COMPLICATIONS: None. DISPOSITION: The patient tolerated the procedure well. Anesthesia was reversed. The patient was transferred back to recovery. POSTOPERATIVE PLAN: The patient will need to continue with the Wound VAC with a plan either for Dr. Almonte or myself to return her to the OR on Sunday or Sunday to re-evaluate the wound. The patient will require again a repeat I and D with possible skin grafting at that time. Continue on the empiric antibiotics in the meantime.
[2016-12-16] MEDS ORDERED: fentaNYL-PF 50 mCg/mL 2 mL Inj ONE (13:01)
[2016-12-16] MEDS ORDERED: Ondansetron 2 mg/mL 2 mL Inj ONE (13:04)
[2016-12-16] MEDS ORDERED: Propofol 10,000 mCg/mL 20 mL Inj ONE (13:04)
[2016-12-16] MEDS ORDERED: OXYC10TA69 PO (15:35)
[2016-12-16] MEDS ORDERED: DIPH25CA6 PO (15:35)
[2016-12-16] MEDS ORDERED: OXYC5TAB72 PO (15:35)
[2016-12-16] MEDS ORDERED: Senna/Docusate Sodium PO (15:35)
[2016-12-16] MEDS ORDERED: GABA400C PO (15:35)
[2016-12-16] MEDS ORDERED: SENN-133 PO (15:35)
[2016-12-16] MEDS ORDERED: Loratadine PO (15:35)
[2016-12-16] MEDS ORDERED: HYDR-4003 PO (15:35)
--- NOTE | 2016-12-16 15:37 | PCM.DIMED ---
Discharge Instructions Date of Service Dec 16, 2016 Dates of Hospitalization Dec 13, 2016 at 20:39 Discharge Diagnosis Discharge Diagnosis 1.Cellulitis with tracking abscess 2.COPD 3.Neuropathy 4.Lupus 5.GERD 6.Allergic rhinitis Diet Heart Healthy, Diabetic Activity Limited until seen by PCP, Home Health Phyical Therapy Call your provider Fever or Chills, Shortness of breath, Chest pain, Vomitting, Excessive diarrhea , Weakness (unilateral), Other Patient Instructions Transfer care to [facility] ALBERT GUERRA DO Dec 16, 2016 15:36
--- NOTE | 2016-12-16 15:44 | PCM.DC.MED ---
Discharge Summary Date of Service Dec 16, 2016 Dates of Hospitalization Date of Hospital Admission Dec 13, 2016 at 20:39 Date of Discharge: Dec 16, 2016 Providers: Admitting Physician: Everardo Javier MD Primary Care Physician: Ellie Rabago Attending Physician: Everardo Javier MD Diagnosis at Time of Discharge Diagnosis at Time of Discharge 1.Cellulitis with tracking abscess 2.COPD 3.Neuropathy 4.Lupus 5.GERD 6.Allergic rhinitis Consultations Orthopedics Infectious disease Procedures XRay, CTs & MRIs Date of Service: 12/13/16 1738 PROCEDURE: X-RAY CHEST ONE VIEW, PORTABLE ([id number]) IMPRESSION: No acute cardiopulmonary disease Dictated by: Anthony Alrdich M.D. on 12/13/2016 at 19:48 Date of Service: 12/13/161999 PROCEDURE: CT TIBIA FIBULA RIGHT W/CONTRAST ([id number]) INDICATIONS: R leg abscess IMPRESSION: Possible rim-enhancing abscess in the anterior soft tissues at the mid tibial diaphyseal level, although unclear if this communicates with the skin surface. Please correlate with clinical exam findings Possible osteonecrosis/AVN involving the distal tibial diametaphysis. Please correlate clinically and with radiographs. Confirmation with ankle MRI could be performed as clinical warranted. Severe circumferential subcutaneous and soft tissue swelling in keeping with cellulitis. Dictated by: Anthony Aldrich M.D. on 12/13/2016 at 20:50 Brief History Copied from H&P "Patient is a 66 year old female with a hx of lupus, neuropathy, COPD, TIA, CVA presenting to the ED via EMS complaining of right leg pain and swelling worsened 5 days ago. The pain is on her right lower leg, usually a constant 7/ 10 in pain scale, currently mild given pain medications in the ED. Patient states she picked a scab off her anterior butler 2 days before the leg started to swell and became painful. Denies cough, SOB or fever. Swelling and redness has been there for 1.5 months, and patient was prescribed Bactrim which she took for 5 days with no significant change about one month ago prescribed by her PCP , Ellie JOSEPH. She denies being on immunosuppressants. In the ED, vitals 36.8, P92 RR20, BP98/60, 95% on RA. WBC 8.3 with lactic acid 1.7, ESR 51. Ortho, Dr. Almonte was consulted, patient seen. Patient admitted with plans for I&D in am." Hospital Course Patient is a 66 year old female with a history of lupus, neuropathy, COPD, TIA, CVA . Admitted for right lower leg cellulitis, abscess, and planned I&D today. 1.Cellulitis with abscess, present on admission. Acute. Improving - CT showed "Possible rim-enhancing abscess in the anterior soft tissues at the mid tibial diaphyseal level, although unclear if this communicates with the skin surface. Please correlate with clinical exam findings.Possible osteonecrosis/AVN involving the distal tibial diametaphysis. Please correlate clinically and with radiographs. Confirmation with ankle MRI could be performed as clinical warranted.Severe circumferential subcutaneous and soft tissue swelling in keeping with cellulitis." - Xray of tibia and fibula, MRI with contrast ordered AM 12/14/16, received call from radiologist in morning before formal report was submitted impression was an abscess tracking down right lower leg approximately 9 cm, with fluid and air bubbles present, noted that tracking infection is close to invading fascial layer. - Wound swabbed for culture and sensitivities, + beta streptococcus - Abscess surgically Incised and debrided in OR 12/14/16 abscess I&D [id number] tissue excised down to fascia. Patient will be taken back to OR 12/16/16 for repeat I&D vs washing and would vac placed - wound vac in place and draining serosanguineous fluid - MRSA swab positive - Hydromorphone IV for breakthrough pain - Oxycodone long acting 10 mg for post surgical pain - Oxycodone 5 mg PRN breakthrough pain - Per ID continued maximal doses of clindamycin, meropenem, and daptomycin, await final cultures and surgical debridement. 2.COPD - continued home dose Advair 3.Neuropathy - continued home dose gabapentin 4.Lupus, stable 5.GERD, stable 6.Allergic rhinitis - continued home cetirizine - Acetaminophen as needed for mild pain/fever/headache - Bowel regimen as needed - Antiemetic as needed GI: not indicated CODE: DNR/DNI Exam Vital Signs (Last) Date Time Temp Pulse Resp B/P Pulse Ox O2 Delivery O2 Flow Rate FiO2 12/16/16 11:27 36.6 80 16 101/66 94 Nasal Cannula 3.00 Exam General: Alert, Oriented X3, Cooperative, No Acute Distress Head: Normocephalic, atraumatic. External ears normal. Eyes: PERRLA, EOMI. Anicteric sclerae. Mouth: Mouth Normal, Mucous Membranes Moist/[place] Neck: Neck supple with full range of motion. Chest & Lungs: Clear to auscultation bilaterally with no crackles, wheezes, or rhonchi. Cardiovascular: Regular Rate/Rhythm, Normal S1, Normal S2, No Murmurs/Rubs/ Gallops Abdomen: Non-tender, Non-distended, No masses, Normoactive bowel tones, Soft Musculoskeletal: Normal Range of Motion, Extremities: strength 4/4 in all extremities b/l, contractures of hands noted b /l, right lower leg surgical wound present, wound vac is draining serosanguineous fluid. Moderate edema noted up to mid butler bilaterally. No cyanosis/clubbing Neurological: Grossly Neurologically Intact, Normal Speech, Strength Normal 4/ 4 ext, Sensation Intact, Test 12/13/16 17:58 12/13/16 21:59 12/14/16 02:45 12/15/16 03:10 Magnesium Level 1.8mg/dL (1.6-2.6) Total Bilirubin 0.2mg/dL (0.0-1.2) Aspartate Amino Transf (AST/SGOT) 16U/L (0-50) Alanine Aminotransferase (ALT/SGPT) 6U/L (0-32) Alkaline Phosphatase 112U/L (25-165) Troponin T < 0.010ug/L (0.0-0.011) Total Protein 6.6g/dL (6.4-8.4) Urine Color Yellow (YELLOW) Urine Appearance Clear (CLEAR,HAZY) Urine pH 6.0 (5.0-8.0) Urine Specific [place] 1.010 (1.003-1.035) Urine Protein Negativemg/dL (NEG,TRACE) Urine Glucose (UA) Negativemg/dL (NEGATIVE) Urine Ketones Negativemg/dL (NEGATIVE) Urine Occult Blood Negative (NEGATIVE) Urine Nitrite Negative (NEGATIVE) Urine Bilirubin Negative (NEGATIVE) Urine Urobilinogen Normalmg/dL (NORMAL) Urine Leukocyte Esterase Negative (NEGATIVE) Urine RBC 0-2/hpf (0-2) Urine WBC 6-10/hpf (0-5) Urine Epithelial Cells Few/hpf (NONE-MOD) Urine Crystals None seen (NONE SEEN) Urine Bacteria None/hpf (NONE-FEW) Urine Hyaline Casts None/lpf (NONE) Urine Granular Casts None seen (NONE SEEN) Urine Waxy Casts None seen (NONE SEEN) Urine Red Blood Cell Casts None seen (NONE SEEN) Urine White Blood Cell Casts None seen (NONE SEEN) Urine Mucus None seen (None Seen) Urine Trichomonas None seen (NONE SEEN) Urine Yeast None (NONE SEEN) Urine Culture Reflexed Indicated Erythrocyte Sedimentation Rate 32mm/hr (0-40) Prothrombin Time 10.7sec (8.1-12.5) Prothromb Time International Ratio 1.00ratio Test 12/16/16 03:34 White Blood Count 17.8th/mm3 (3.8-10.1) Red Blood Count 2.84mil/mm3 (3.90-5.20) Hemoglobin 8.5g/dL (12.0-15.6) Hematocrit 26.5% (35.0-46.0) Mean Corpuscular Volume 93.3fL (81-100) Mean Corpuscular Hemoglobin 29.9pg (27.0-35.0) Mean Corpuscular Hemoglobin Concent 32.1% (32.0-37.0) Red Cell Distribution Width 14.2% (12.3-15.4) Platelet Count 316bil/L (150-400) Neutrophils (%) (Auto) 87.4% (40-74) Lymphocytes (%) (Auto) 4.7% (14-46) Monocytes (%) (Auto) 7.0% (4-12) Eosinophils (%) (Auto) 0.3% (0-5) Basophils (%) (Auto) 0.1% (0-3) Sodium Level 138mEq/L (134-144) Potassium Level 3.7mEq/L (3.5-5.2) Chloride Level 103mEq/L (97-108) Carbon Dioxide Level 24mmol/L (18-29) Blood Urea Nitrogen 10mg/dL (8-27) Creatinine 0.71mg/dL (0.57-1.00) Estimat Glomerular Filtration Rate 118mL/min (>59) Glucose Level 100mg/dL (60-99) Lactic Acid Level 0.8mmol/L (0.4-2.0) Calcium Level 6.8mg/dL (8.5-10.1) Total Creatine Kinase 93U/L (21-215) Albumin 2.2g/dL (3.4-5.0) Procalcitonin 0.27ng/mL (See Comment) Discharge Medications Discharge Medications ([Loratadine]) 10 MG TABLET 10 MG PO DAILY Prescribed by: ALBERT GUERRA DO ([Senna/Docusate Sodium]) 1 TABLET TABLET 1 TABLET PO BID Prescribed by: ALBERT GUERRA DO Aspirin Chew (Aspirin Chew) 81 Mg Chew 81 MG PO DAILY (Reported) Fluticasone Propionate (Flonase Allergy Relief) 50 Mcg/Actuation [place].susp 1 SPRAY NASAL QID (Reported) Furosemide (Furosemide) 20 Mg Tab 20 MG PO BID (Reported) Gabapentin (Gabapentin) 400 Mg Capsule 400 MG PO QID (Reported) Gabapentin (Neurontin) 400 Mg Capsule 400 MG PO QID Prescribed by: ALBERT GUERRA DO Multivitamin (Multivitamins) 1 Each Capsule 1 EACH PO DAILY (Reported) Oxycodone ER (Oxycontin) 10 Mg Tab.er.12h 10 MG PO BID Prescribed by: ALBERT GUERRA DO As needed Albuterol HFA (Proair HFA) 8.5 Gm Hfa.aer.ad 2 PUFFS INH Q4H PRN PRN For Shortness of Breath (Reported) Hydrocodone-Acetaminophen 10-325 mg (Hydrocodone-Acetaminophen 10-325 mg) 1 Each Tablet 1 TAB PO Q4H PRN PRN For Pain (Reported) Hydrocodone-Acetaminophen 5-325 mg (Hydrocodone-Acetaminophen 5-325 mg) 1 Each Tablet 1-2 TABLET PO Q4H PRN PRN For Moderate Pain Prescribed by: ALBERT GUERRA DO Sennosides (Senna) 8.6 Mg Tablet 17.2 MG PO BID PRN PRN For Constipation Prescribed by: ALBERT GUERRA DO diphenhydrAMINE HCl (Benadryl) 25 Mg Capsule 25 MG PO Q4H PRN PRN For Itching Prescribed by: ALBERT GUERRA DO oxyCODONE (oxyCODONE) 5 Mg Tablet 5 MG PO Q4H PRN PRN For Moderate Pain Prescribed by: ALBERT GUERRA DO Followup Plan Disposition: Transfer care to [facility] Discharge Diet: Heart Healthy, Diabetic Discharge Activity: Limited until seen by PCP, Home Health Phyical Therapy Patient Instructions Transfer care to [facility] ALBERT GUERRA DO Dec 16, 2016 15:44
--- NOTE | 2016-12-16 19:10 | PCM.PNMED ---
Subjective Date of Service Dec 16, 2016 Subjective Patient is a 66 year old female with a history of lupus, neuropathy, COPD, TIA, CVA . Admitted for right lower leg cellulitis, abscess, and planned I&D today. Hospital Day 3. Post op day 2 Overnight: no acute events reported. Today: Stated that her pain is under good control with the change in pain medications. Patient awaiting surgical procedure to clean out her leg wound again today. Patient stated she is concerned about going to a SNF. Patient denies fever, chills, cough, shortness of breath, chest pain, chest pressure, dysuria, diarrhea, constipation. ROS negative except for mentioned above. Exam Vital Signs Vital Sign - Last Date Time Temp Pulse Resp B/P Pulse Ox O2 Delivery O2 Flow Rate FiO2 12/16/16 03:05 37.4 105 16 102/63 96 Nasal Cannula 2.00 Intake and Output 12/15/16 12/15/16 12/16/16 Cumulative From/Thru 15:00 23:00 07:00 12/13/16 16:15 - 12/16/16 05:59 Intake Total 914 ml 1164 ml 8063 ml Output Total 702 ml 3162 ml Balance 914 ml 462 ml 4901 ml Intake Oral 640 ml 640 ml IV Total 914 ml 524 ml 6653 ml TPN/PPN 770 ml Output Urine Total 700 ml 3150 ml Urine/Stool Mix 2 ml 2 ml Estimated Blood Loss 10 ml # Voids 1 # Bowel Movements 0 Exam General: Alert, Oriented X3, Cooperative, No Acute Distress Head: Normocephalic, atraumatic. External ears normal. Eyes: PERRLA, EOMI. Anicteric sclerae. Mouth: Mouth Normal, Mucous Membranes Moist/[place] Neck: Neck supple with full range of motion. Chest & Lungs: Clear to auscultation bilaterally with no crackles, wheezes, or rhonchi. Cardiovascular: Regular Rate/Rhythm, Normal S1, Normal S2, No Murmurs/Rubs/ Gallops Abdomen: Non-tender, Non-distended, No masses, Normoactive bowel tones, Soft Musculoskeletal: Normal Range of Motion, Extremities: strength 4/4 in all extremities b/l, contractures of hands noted b /l, right lower leg surgical wound present, wound vac is draining serosanguineous fluid. Moderate edema noted up to mid butler bilaterally. No cyanosis/clubbing Neurological: Grossly Neurologically Intact, Normal Speech, Strength Normal 4/ 4 ext, Sensation Intact, Lab and Diagnostics Result Diagram: 12/16/164 12/16/16333 X-Rays, CTs and MRIs Date of Service: 12/13/161737 PROCEDURE: X-RAY CHEST ONE VIEW, PORTABLE ([id number]) IMPRESSION: No acute cardiopulmonary disease Dictated by: Anthony Aldrich M.D. on 12/13/2016 at 19:48 Date of Service: 12/13/161999 PROCEDURE: CT TIBIA FIBULA RIGHT W/CONTRAST ([id number]) INDICATIONS: R leg abscess IMPRESSION: Possible rim-enhancing abscess in the anterior soft tissues at the mid tibial diaphyseal level, although unclear if this communicates with the skin surface. Please correlate with clinical exam findings Possible osteonecrosis/AVN involving the distal tibial diametaphysis. Please correlate clinically and with radiographs. Confirmation with ankle MRI could be performed as clinical warranted. Severe circumferential subcutaneous and soft tissue swelling in keeping with cellulitis. Dictated by: Anthony Aldrich M.D. on 12/13/2016 at 20:50 Assessment & Plan Patient is a 66 year old female with a history of lupus, neuropathy, COPD, TIA, CVA . Admitted for right lower leg cellulitis, abscess, and planned I&D today. Hospital Day 3. 1.Cellulitis with abscess, present on admission. Acute. Improving - Surgically Incised and debrided 12/14/16 - CT showed "Possible rim-enhancing abscess in the anterior soft tissues at the mid tibial diaphyseal level, although unclear if this communicates with the skin surface. Please correlate with clinical exam findings.Possible osteonecrosis/AVN involving the distal tibial diametaphysis. Please correlate clinically and with radiographs. Confirmation with ankle MRI could be performed as clinical warranted.Severe circumferential subcutaneous and soft tissue swelling in keeping with cellulitis." - Xray of tibia and fibula, MRI with contrast ordered AM 12/14/16, received call from radiologist in morning before formal report was submitted impression was an abscess tracking down right lower leg approximately 9 cm, with fluid and air bubbles present, noted that tracking infection is close to invading fascial layer. - Wound swabbed for culture and sensitivities, + beta streptococcus - Dr. Almonte of ortho consulted, took patient to OR 12/14/16 abscess I&D [id number] tissue excised down to fascia. Patient will be taken back to OR tomorrow for repeat I&D vs washing and primary closure vs would vac. - Repeat I&D per Orthopedics scheduled for Sunday/Sunday next week. - NPO @ midnight - repeat surgical repeat I&D Sunday/Sunday - wound vac in place and draining serosanguineous fluid - MRSA swab positive - Hydromorphone IV for breakthrough pain - Oxycodone long acting 10 mg for post surgical pain - Oxycodone 5 mg PRN breakthrough pain - Per ID continue maximal doses of clindamycin, meropenem, and daptomycin, await final cultures and surgical debridement. - Infectious disease consulted we appreciate their time and recommendations 2.COPD - continue home dose Advair 3.Neuropathy - continue home dose gabapentin - Vicodin held 4.Lupus - continue to monitor 5.GERD - patient not on any medication for this 6.Allergic rhinitis - continue home cetirizine - Acetaminophen as needed for mild pain/fever/headache - Bowel regimen as needed - Antiemetic as needed DVT: anticoagulation held due to I&D in am, SCD not appropriate due to lesion in lower extremity GI: not indicated CODE: DNR/DNI Disposition: Likely discharge to [facility] post repeat surgical I&D and debridement likely stay <48 hours. VTE Mechanical Devices: Intermittant Pneumatic CD Resuscitation Status: DNR/DNI:Do Not Resuscitate/Intubate Attending Statement The patient was seen and examined together with Dr. Segura on 12/16/2016 and I agree with the history, exam and plan as outlined in the note above. . ALBERT SEGURA DO Dec 16, 2016 06:57 Arian Hamilton MD Dec 17, 2016 08:11
--- NOTE | 2016-12-16 21:29 | NUR ---
TRANSFER TO [facility] Report received from Meena Martinez on PCC at 2124. Awaiting transfer via bed. Addendum: 12/16/16 at 2206 by GRACE GUTIÉRREZ RN Pt arrived at 2150. A&Ox4, VSS, NS at 80. Denies any pain or discomfort at this time. Explained plan of care--transfer here to [facility], possible I&D next week, then transfer to [place]. Pt adamant about not wanting to go to [place]: "I just want to go home. My son is there, he can help me. They are as stubborn about me going to [place] as I am not going." Denies any other needs at this time. Per micro and MD note, positive nasal MRSA. Put on contact precautions. Continuing care.
--- NOTE | 2016-12-16 22:15 | NUR ---
Transfer Pt moved to [facility] bed. Application Administrator and RN SALAS assisted. All belonging moved with pt. Pt VSS, on RA, A&Ox3. Report given to [facility].
--- NOTE | 2016-12-16 23:32 | NUR ---
TURNING Checked pt for incontinence at 2330. Brief is dry, pt is able to verbalize when she is dry. Assessed skin for redness--sacrum red but blanchable. Educated pt on need to turn every 2 hours to prevent bed sores, pt refused despite education. Will try again at 0400 rounds and vital signs. Continuing care. Addendum: 12/17/16 at 0508 by GRACE GUTIÉRREZ RN At 0430, pt stated that brief needed to be changed, but refused changing at that time stating "I just want to lay here for awhile." RN educated on need to change brief to keep skin integrity. Pt continued to refuse. Hourly rounding in place.
[2016-12-17] MEDS: Meropenem Inj 2,000 MG in 0.9% Sodium Chloride 100 ML IV SCH ×3 (00:37→16:51)
[2016-12-17 04:29] VITALS: BP 129/63; PULSE 118; RESP 24; O2SAT 90
[2016-12-17] MEDS: HYDROcodone-APAP 5-325 mg Tablet PO PRN ×3 (04:40→17:38)
[2016-12-17 07:06] LABS: BASOPHILS % (AUTO) 0.1 % (0-3); EOSINOPHILS % (AUTO) 0.1 % (0-5); MONOCYTES % (AUTO) 4.9 % (4-12); Mean Corpuscular Hemoglobin 29.9 pg (27.0-35.0); Mean Corpuscular Volume 92.8 fL (81-100); NEUTROPHILS % (AUTO) 89.8 % (40-74); Platelet Count 294 bil/L (150-400)
[2016-12-17] MEDS: Senna-Docusate 8.6-50 mg Tablet PO SCH ×2 (08:30→20:30)
[2016-12-17] MEDS: Sodium Chloride LOK Flush 10 mL Syringe IV SCH ×4 (08:30→16:30)
[2016-12-17] MEDS: oxyCODONE ER 10 mg ER12 Tablet PO SCH ×2 (10:11→21:03)
--- NOTE | 2016-12-17 11:41 | PCM.PNORTH ---
Subjective Date of Service: Dec 17, 2016 Visit Information: Reason for Visit Right Leg Cellulitis Surgery/Surgery Date Post-Op Day # Date of Admission: Dec 13, 2016 at 20:39 Hospital Day # Subjective Pt states that she is doing well. She has less pain with each successive surgery. She denies any constitutional symptoms including and fevers, sweats or chills Postop General: No Complaints, No Shortness of Breath, No Chest Pain, Good Appetite Pain Management: PO, IV Push Objective Exam Objective Gen - alert, NAD Ext - vac intact to right lower extremity with minimal drainage into vac cannister Excellent seal +DF/PF ankle Vital Signs and I/O Vital Sign - Last Date Time Temp Pulse Resp B/P Pulse Ox O2 Delivery O2 Flow Rate FiO2 12/17/16 04:29 37.5 118 24 129/63 90 Nasal Cannula 2.00 Intake and Output 12/16/16 12/16/16 12/17/16 Cumulative From/Thru 15:00 23:00 07:00 12/13/16 16:15 - 12/17/16 06:33 Intake Total 700 ml 825 ml 1243 ml 68163 ml Output Total 3162 ml Balance 700 ml 825 ml 1243 ml 7669 ml Intake Oral 300 ml 480 ml 1420 ml IV Total 700 ml 525 ml 763 ml 8641 ml TPN/PPN 770 ml Output Urine Total 3150 ml Urine/Stool Mix 2 ml Estimated Blood Loss 10 ml # Voids 3 1 5 # Bowel Movements 1 1 Lab & Micro Results Laboratory Tests Test 12/17/16 06:40 White Blood Count 16.8th/mm3 (3.8-10.1) Red Blood Count 2.64mil/mm3 (3.90-5.20) Hemoglobin 7.9g/dL (12.0-15.6) Hematocrit 24.5% (35.0-46.0) Mean Corpuscular Volume 92.8fL (81-100) Mean Corpuscular Hemoglobin 29.9pg (27.0-35.0) Mean Corpuscular Hemoglobin Concent 32.2% (32.0-37.0) Red Cell Distribution Width 14.0% (12.3-15.4) Platelet Count 294bil/L (150-400) Neutrophils (%) (Auto) 89.8% (40-74) Lymphocytes (%) (Auto) 4.7% (14-46) Monocytes (%) (Auto) 4.9% (4-12) Eosinophils (%) (Auto) 0.1% (0-5) Basophils (%) (Auto) 0.1% (0-3) Sodium Level 140mEq/L (134-144) Potassium Level 3.5mEq/L (3.5-5.2) Chloride Level 103mEq/L (97-108) Carbon Dioxide Level 23mmol/L (18-29) Blood Urea Nitrogen 9mg/dL (8-27) Creatinine 0.56mg/dL (0.57-1.00) Estimat Glomerular Filtration Rate 156mL/min (>59) Glucose Level 99mg/dL (60-99) Calcium Level 6.9mg/dL (8.5-10.1) Microbiology 12/13/16 Blood Culture - Preliminary, Resulted No growth at 2 days; culture examined... 12/13/16 MRSA Surveillance Culture - Final, Complete Screen Positive For Mrsa 12/13/16 Urine Culture - Final, Complete Mixed Urogenital Rolanda 12/14/16 Gram Stain - Final, Resulted 12/14/16 Culture & Sensitivity - Preliminary, Resulted Beta Streptococcus Group B 12/14/16 Anaerobic Culture - Preliminary, Resulted 12/14/16 Fungal Culture, Resulted Pending Result Diagram: 12/17/16 0640 12/17/16 0640 SURGICAL WOUND : Drain Location Body Site: Calf Wound Drainage Type: Wound Vac Activity: Activity per PT, Ambulate with PT (nonweightbearing at this time secondary to wound VAC and pending return to the OR for repeat I&D and likely wound closure. Patient may participate in bed mobility and upper extremity mobility as able.) Catheters: None Assessment & Plan Impression POD #1 s/p repeat I/D right leg with partial closure of wound and reapplication of wound vac Problems: Plan Discussed R/B/A/I with patient for repeat I/D tommorrow afternoon (Sunday) with possible stsg from the right thigh if the wound bed remains clean without evidence of infection. She had all questions answered, consent was signed and placed on the chart. If stsg is performed, she can then be d/c with a wound vac that remains intact until 5 days. I will see her in the office at POD #5 to remove the vac and evaluate the graft and donor site. Resuscitation Status: DNR/DNI:Do Not Resuscitate/Intubate Odilon Bauer DO Dec 17, 2016 11:41
[2016-12-17 12:30] VITALS: BP 112/69; PULSE 101; RESP 20; O2SAT 89
[2016-12-17 12:32] VITALS: RESP 20; O2SAT 95
[2016-12-17] MEDS: 0.9% Sodium Chloride 1,000 ML IV SCH (12:34)
[2016-12-17] MEDS: DAPTOmycin Inj 500 MG in 0.9% Sodium Chloride 50 ML IV SCH (13:31)
--- NOTE | 2016-12-17 14:12 | NUR ---
Breathing Pt c/o of SOB. States she takes Advir at home. Pg Dr Collins with request. Pt was up with PT today, transferred to [facility] with help. Addendum: 12/17/16 at 1430 by PALOMO MONIQUE RN Dr Collins wrote Order for Advir, one puff/day. Pt is refusing to wear O2. Went in and told her doctor really recommends she wears O2 so she can breath easier. Turned O2 down to 1.5L, and she agreed to wear it for a few hours. O2% prior to applying O2 was 85%. Applied 1.5 L went up to 89%.
[2016-12-17] MEDS ORDERED: Fluticasone-Salmeterol 100-50 Inhaler INHALATION ONE (14:15)
--- NOTE | 2016-12-17 14:20 | PCM.PNMED ---
Subjective Date of Service Dec 17, 2016 Subjective Patient was examined at bedside today. Patient denies any chest pain, shortness of breath, nausea, vomiting, diarrhea. Patient does complain of weakness and states that her pain is well controlled. Exam Vital Signs Vital Sign - Last Date Time Temp Pulse Resp B/P Pulse Ox O2 Delivery O2 Flow Rate FiO2 12/17/16 12:32 20 95 Nasal Cannula 2.00 12/17/16 12:30 37.2 101 112/69 Intake and Output 12/16/16 12/16/16 12/17/16 Cumulative From/Thru 15:00 23:00 07:00 12/13/16 16:15 - 12/17/16 06:33 Intake Total 700 ml 825 ml 1243 ml 90499 ml Output Total 3162 ml Balance 700 ml 825 ml 1243 ml 7669 ml Intake Oral 300 ml 480 ml 1420 ml IV Total 700 ml 525 ml 763 ml 8641 ml TPN/PPN 770 ml Output Urine Total 3150 ml Urine/Stool Mix 2 ml Estimated Blood Loss 10 ml # Voids 3 1 5 # Bowel Movements 1 1 Exam Physical Exam: GEN: Patient was awake, alert, responding appropriately to questions HEENT: PERRLA, EOMI, Neck soft supple, trachea midline, nomocephalic/atraumatic CV: +S1/S2, irregular Respiratory: CTAB, no wheezes, rales, rhonchi GI: +bowel sounds x4, soft, compressible, non TTP EXT: no c/c/e left lower extremity, right lower extremity dressing clean dry and intact on the right lower extremity Musculoskeletal: S1 intact, positive dorsi flexion and plantar flexion bilaterally Neuro: CN II-XII grossly intact Psych: mood and affect were appropriate IVs and Medications Medications Reviewed: Medications were reviewed in detail Medications Current Medications Albuterol/ Ipratropium 3 ml 3 ml ONCE PRN NEB Last administered on 12/16/16t 11 :00; Admin Dose 3 ML; Start 12/16/16 at 10:40; Stop 12/16/16 at 11:31; Status DC Lactated Ringer's 1,000 ml @ 120 mls/hr Q8H20M IV; Start 12/16/16 at 10:38; Stop 12/16/16 at 11:30; Status DC Ephedrine Systolic SBP below 90 ... Q2MIN PRN IVPUSH; Start 12/16/16 at 10:40; Stop 12/16/16 at 11:31; Status DC Phenylephrine HCl Systolic BP below 90 ... ONCE PRN IVPUSH; Start 12/16/16 at 10:40; Stop 12/16/16 at 11:31; Status DC Lactated Ringer's 500 ml @ 0 mls/hr Q0M PRN IV; Start 12/16/16 at 10:38; Stop at 11:31; Status DC Fentanyl Citrate 25-50 mcg IV every 5 min p... Q5MIN PRN IVPUSH; Start at 10:40; Stop 12/16/16 at 11:31; Status DC Morphine Sulfate 1-4 mg IV every 5 min p... Q5MIN PRN IVPUSH; Start 12/16/16 at 10:40; Stop 12/16/16 at 11:31; Status DC Hydromorphone HCl 0.2-1 mg IV every 5 min p... Q5MIN PRN IVPUSH; Start at 10:40; Stop 12/16/16 at 11:31; Status DC Meperidine HCl 12.5-25 mg IV every 5 min p... Q5MIN PRN IVPUSH; Start 12/16/16 at 10:40; Stop 12/16/16 at 11:31; Status DC Diphenhydramine HCl 12.5-50 mg IV prn itchi... Q30MIN PRN IVPUSH; Start at 10:40; Stop 12/16/16 at 11:31; Status DC Dexamethasone Sodium Phosphate 4 mg ONCE PRN IVPUSH; Start 12/16/16 at 10:40; Stop 12/16/16 at 11:31; Status DC Metoclopramide HCl 10 mg Q10MIN PRN IVPUSH; Start 12/16/16 at 10:40; Stop 12/16 at 11:30; Status DC Ondansetron HCl 4-8 mg IV every 4 hours ... Q4H PRN IVPUSH; Start 12/16/16 at 10:40; Stop 12/16/16 at 11:31; Status DC Midazolam HCl 0.5-1 mg IV every 5 min p... Q5MIN PRN IVPUSH; Start 12/16/16 at 10:40; Stop 12/16/16 at 11:31; Status DC Sodium Chloride 10 ml TORY IV Last administered on 12/16/16t 16:45; Admin Dose 10 ML; Start 12/16/16 at 16:30 Calcium Carbonate 500 mg TIDWM PO Last administered on 12/17/16 13:31; Admin Dose 500 MG; Start 12/17/16 at 08:22 Lab and Diagnostics Result Diagram: 12/17/16 0640 12/17/16 0640 X-Rays, CTs and MRIs Date of Service: 12/13/16 1738 PROCEDURE: X-RAY CHEST ONE VIEW, PORTABLE ([id number]) IMPRESSION: No acute cardiopulmonary disease Dictated by: Anthony Aldrich M.D. on 12/13/2016 at 19:48 Date of Service: 12/13/161999 PROCEDURE: CT TIBIA FIBULA RIGHT W/CONTRAST ([id number]) INDICATIONS: R leg abscess IMPRESSION: Possible rim-enhancing abscess in the anterior soft tissues at the mid tibial diaphyseal level, although unclear if this communicates with the skin surface. Please correlate with clinical exam findings Possible osteonecrosis/AVN involving the distal tibial diametaphysis. Please correlate clinically and with radiographs. Confirmation with ankle MRI could be performed as clinical warranted. Severe circumferential subcutaneous and soft tissue swelling in keeping with cellulitis. Dictated by: Anthony Aldrich M.D. on 12/13/2016 at 20:50 Assessment & Plan Patient is a 66 year old female with a history of lupus, neuropathy, COPD, TIA, CVA . Admitted for right lower leg cellulitis, abscess, and planned I&D today. Hospital Day 3. Cellulitis with abscess, present on admission. Acute. Improving - Surgically Incised and debrided 12/14/16 - CT showed "Possible rim-enhancing abscess in the anterior soft tissues at the mid tibial diaphyseal level, although unclear if this communicates with the skin surface. Please correlate with clinical exam findings.Possible osteonecrosis/AVN involving the distal tibial diametaphysis. Please correlate clinically and with radiographs. Confirmation with ankle MRI could be performed as clinical warranted.Severe circumferential subcutaneous and soft tissue swelling in keeping with cellulitis." - Xray of tibia and fibula, MRI with contrast ordered AM 12/14/16, received call from radiologist in morning before formal report was submitted impression was an abscess tracking down right lower leg approximately 9 cm, with fluid and air bubbles present, noted that tracking infection is close to invading fascial layer. - Wound swabbed for culture and sensitivities, + beta streptococcus - Dr. Almonte of ortho consulted, took patient to OR 12/14/16 abscess I&D [id number] tissue excised down to fascia. Patient will be taken back to OR tomorrow for repeat I&D vs washing and primary closure vs would vac. - Repeat I&D per Orthopedics currently scheduled for tomorrow afternoon - NPO @ midnight - repeat surgical repeat I&D Sunday/Sunday - wound vac in place and draining serosanguineous fluid - MRSA swab positive - Hydromorphone IV for breakthrough pain - Oxycodone long acting 10 mg for post surgical pain - Oxycodone 5 mg PRN breakthrough pain - Per ID continue maximal doses of clindamycin, meropenem, and daptomycin, await final cultures and surgical debridement. - Infectious disease following COPD - continue home dose Advair Neuropathy - continue home dose gabapentin - Vicodin held Lupus - continue to monitor GERD - patient not on any medication for this Allergic rhinitis - continue home cetirizine - Acetaminophen as needed for mild pain/fever/headache - Bowel regimen as needed - Antiemetic as needed DVT: anticoagulation held due to I&D in am, SCD not appropriate due to lesion in lower extremity GI: not indicated CODE: DNR/DNI Disposition: Likely discharge to [facility] within 1-2 days post repeat surgical I&D and debridement tomorrow. VTE Mechanical Devices: Intermittant Pneumatic CD Resuscitation Status: DNR/DNI:Do Not Resuscitate/Intubate Mariza Collins DO Dec 17, 2016 14:20
--- NOTE | 2016-12-17 15:40 | NUR ---
Social Work Note: Continued Discharge Planning Data& Assessment: SW met with pt at bedside to confirm discharge plan and assess for any unmet needs. Wanda Rodriguez is a 66 year old female admitted on 12/13/2016 for right leg cellulitis. Pt is scheduled to go to the OR tomorrow (Sunday12/17/2016) and transfer to [facility] once medically stable post OR. Pt explained she is unsure of the distance between [facility] and her family here in town. Pt is hopeful that she could obtain more [facility] caregiving hours at discharge and be able to go home that way. SW explained that one she is discharged, her [facility] CM Belgica Nunez will be sent all of her clinicals and then decide if pt requires more caregiving hours or not. Pt was very concerned that her caregiver Denia Peoples is left out of the loop when it comes to her being hospitalized. SW to follow up with pt FORTINO GREEN to ensure pt caregiver is updated that pt is still hospitalized so she does not go to pt home for regularly scheduled caregiving hours. Pt denies any other needs at this time. SW to continue to follow. Plan: SW to follow up with pt regarding discharge planning post OR. SW to follow up with pt FORTINO GREEN to ensure pt caregiver is updated that pt is still hospitalized so she does not go to pt home for regularly scheduled caregiving hours. Pt denies any other needs at this time per pt request. SW to continue to follow. JAMA Nieto Addendum: 12/17/16 at 1623 by RIC LUIS JANELLE left a voicemail for pt FORTINO Nunez regarding pt hospitalization. Per pt request, SW communicated pt concerns for amount of caregiving hours and to notify her caregiver that she is still in the hospital. SW to continue to follow. JAMA Nieto
--- NOTE | 2016-12-17 15:47 | NUR ---
DONTAE Verbal Consent JAMA Nieto
[2016-12-17 16:26] VITALS: PULSE 93; RESP 18; O2SAT 95
[2016-12-17 20:43] VITALS: BP 95/57; PULSE 99; RESP 18; O2SAT 91
[2016-12-18] VITALS (10 sets, daily range): BP systolic 101–115; BP diastolic 59–65; PULSE 89–106; RESP 15–24; O2SAT 75–94
[2016-12-18] MEDS: Sodium Chloride LOK Flush 10 mL Syringe IV SCH ×6 (00:30→16:30)
[2016-12-18] MEDS: Fluticasone-Salmeterol 100-50 Inhaler INHALATION SCH ×3 (00:35→20:23)
[2016-12-18] MEDS: Meropenem Inj 2,000 MG in 0.9% Sodium Chloride 100 ML IV SCH ×2 (00:36→09:05)
[2016-12-18] MEDS: 0.9% Sodium Chloride 1,000 ML IV SCH ×2 (00:36→19:21)
--- NOTE | 2016-12-18 01:45 | NUR ---
anxiety - slide board patient very concerned about slide board transferr in the OR tomorrow. states "my shoulders can't handle the board." plan to notify OR in am.
--- NOTE | 2016-12-18 07:18 | NUR ---
iv site iv site mildly puffy at peripheral of insertion. ok with saline flush. called iv therapy for a second look at the site.
[2016-12-18 07:20] LABS: Mean Corpuscular Hemoglobin 30.3 pg (27.0-35.0); Mean Corpuscular Volume 95.2 fL (81-100)
[2016-12-18] MEDS: oxyCODONE ER 10 mg ER12 Tablet PO SCH ×2 (08:08→20:18)
[2016-12-18] MEDS: Senna-Docusate 8.6-50 mg Tablet PO SCH ×3 (08:10→20:21)
[2016-12-18] MEDS ORDERED: Calcium Chl 10% (Gm) Inj 1 GM in Dextrose 5% 100 ML IV ONE (08:35)
[2016-12-18] MEDS ORDERED: fentaNYL-PF 50 mCg/mL 2 mL Inj ONE (08:49)
--- NOTE | 2016-12-18 09:30 | NUR ---
IV Site IV site on R FA infiltrated. Paged IV therapy. They could not come up for awhile, and I had a few medications they needed started. Outpatient TRA Berry was able to get a site on her R FA. Pt due to have surgery at 1600 on her R Lower Leg. Addendum: 12/18/16 at 1732 by PALOMO MONIQUE RN PT left floor at 1545 for surgery. Addendum: 12/18/16 at 1821 by PALOMO MONIQUE RN OR nurse called report [id number]. Pt arrived back on floor 1745. Pt refusing to wear O2. VS taken O2 84%RA. RT called at 1810 stating PT refusing O2, and she is at 77% on RA. Went in to talk to PT, convinced her to put 2L of O2 back on. Will re check O2.
[2016-12-18] MEDS ORDERED: Propofol 10,000 mCg/mL 20 mL Inj ONE (10:10)
[2016-12-18] MEDS ORDERED: Ondansetron 2 mg/mL 2 mL Inj ONE (10:10)
[2016-12-18] MEDS ORDERED: Lidocaine PF 1% 30 mL Inj ONE (10:10)
[2016-12-18] MEDS: HYDROcodone-APAP 5-325 mg Tablet PO PRN (10:53)
--- NOTE | 2016-12-18 12:12 | DRSVH ---
PROCEDURE: MRI TIBIA FIBULA RIGHT WITH AND WITHOUT CONTRAST ([id number]) INDICATIONS: abscess possible osteonecro/AVN TECHNIQUE: Noncontrast coronal T1 spin echo and STIR, sagittal T1 spin echo with fat saturation and STIR, axial T1 spin echo and T2 fast spin echo with fat saturation. After the administration of contrast, axial/ sagittal/coronal T1 spin echo with fat saturation through the calf regions bilaterally,. COMPARISON: [facility], CT, CT TIBIA FIBULA RT W CON, 12/13/2016, 20:18. [facility], CR, XR TIBIA FIBULA 2VW RT, 12/13/2016, 23:38. FINDINGS: Image quality: Excellent. Bones: The visualized bone marrow demonstrates normal signal on all sequences except at the distal t ibial medullary space extending from the distal diaphysis through the metadiaphyseal junction but not to the subchondral cortical bone. 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 A chondr oid matrix tumor is not suspected as the underlying cause. The overlying cortex appears intact. No abnormal intraosseous enhancement in this area or near the epicenter of maximal infection at the uppe r outer proximal calf fatty soft tissues. Soft tissues: No soft tissue masses are visualized suggestive of malignancy. The scanned muscles de monstrate normal overall bulk and internal signal. Subcutaneous tissues, however, appear prominently abnormal at the right calf region where a large region of edema and contrast-enhancement within the subcutaneous fat is present centered at the anterolateral calf, with epicenter of maximal inflammator y change seen at the junction of the middle and proximal thirds of the soft tissues. In this area th ere is what appears to be a rim-enhancing fluid collection measuring up to 8.9 cm craniocaudad, and w ith a maximal AP and transverse dimension of approximately 3.5 cm tapering above and below. The absc ess cavity is approximately 1 cm below the skin surface to its peripheral border. Additional small a reas of encapsulated fluid with peripheral contrast enhancement tracks inferiorly across the middle a nd into the distal third of the lateral calf, with an appearance of phlegmonous private branch exchange installer a cranioc audad length of 25 cm. No abnormal soft tissue enhancement. IMPRESSION: Pronounced inflammatory process involving the right calf, with epicenter at the junction of the proximal and middle thirds of the calf at the anterolateral aspect of the fatty soft tissues w here a rim-enhancing fluid collection with apparent tracking to the skin surface can be seen with an overall craniocaudad dimension of 8.9 cm an approximately 3.5 x 3.5 cm in maximal axial dimensions. As noted above the inflammatory process tracks more inferiorly and laterally, with small areas of flu id collections within those fatty soft tissues each measuring only approximately 3-5 mm but having an appearance suggestive of phlegmonous change. During prior plain film and CT scanning a marrow space abnormality was noted at the distal tibia, inv olving the distal diaphysis and extending through the metadiaphyseal junction, but not to the joint l evel. 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 There is no suspicion for underlying osteomyel itis at that site or elsewhere. This information was immediately called for further discussion to the hospital staff caring for the p atient. Doctor Segura was contacted, the hospitalist caring for the patient, and the exact position and depth and dimensions of the abscess cavity were described. Surgical consultation has already bee n obtained but in my opinion surgical intervention in the soon as possible time frame would be recomm ended. Incision and drainage is anticipated. Dictated by: Pascual Hanson M.D. on 12/14/2016 at 10:02 Approved by: Pascual Hanson M.D. on 12/14/2016 at 10:28
[2016-12-18] MEDS: DAPTOmycin Inj 500 MG in 0.9% Sodium Chloride 50 ML IV SCH (13:48)
--- NOTE | 2016-12-18 15:05 | NUR ---
Social Work Continued Discharge Planning: D: SW met with Pt at bedside to discuss discharge recommendation. The Pt is a 66 y/o female that was admitted on 12/13/2016 for right leg cellulitis. The Pt is scheduled to go to the OR at 4pm today 12/18/2016 and transfer to [facility] once medically stable post OR. SW explored the importance of transferring to [facility] and the challenges associated with attempting care at home. The Pt reports that she would like to go home with son and other family and friends to assist with her care. She states that she has a walker, adjustable bed, and that her bathroom is also renovated to assist with her needs. The Pt explained that she does not want to be far from her family and also denied the assistance of a lower level of care such as a SNF. The Pt reported that she would be able to bring a wound vac with her at discharge, as well. Orthopedic notes state, "If stsg is performed, she can then be d/c with a wound vac that remains intact until 5 days." The Pt feels that she would be able to return home with family and other support to assist with her care. [facility] also explored with the Pt, she was informed that her [facility] caregiving concerns regarding an increase of hours would not likely be fulfilled until a much later date. Pt will to explore her options further. SW to follow for discharge plan. A: Pt that would likely benefit from stay to [facility] for IV antibiotics and wound care. P: The Pt likely to be discharged when medically stable. It has been recommended that the Pt be discharged to [facility] due to the complexity of her needs to include IV antibiotics and wound care. The Pt is denying the need for this service but is open to exploring her options further. TIMOTHY to follow for discharge plan. Leticia Benedict MSW Wardrobe Mistress JAMA Barillas
[2016-12-18] MEDS ORDERED: Atropine 0.4 mg/mL Inj IVPUSH PRN (16:00)
[2016-12-18] MEDS ORDERED: Labetalol 5 mg/mL 4 mL Inj IV PRN (16:00)
[2016-12-18] MEDS ORDERED: hydrALAZINE 20 mg/mL Inj IVPUSH PRN (16:00)
[2016-12-18] MEDS ORDERED: Albuterol 2.5 mg/3 mL Inhalation Solution NEB PRN (16:00)
[2016-12-18] MEDS ORDERED: MetoCLOpramide 5 mg/mL 2 mL Inj IVPUSH PRN (16:00)
[2016-12-18] MEDS ORDERED: Phenylephrine 10,000 mCg/mL Inj IVPUSH PRN (16:00)
[2016-12-18] MEDS ORDERED: Lactated Ringer's 500 ML IV PRN (16:00)
[2016-12-18] MEDS ORDERED: fentaNYL-PF 50 mCg/mL 2 mL Inj IVPUSH PRN (16:00)
[2016-12-18] MEDS ORDERED: Dexamethasone 4 mg/mL Inj IVPUSH PRN (16:00)
[2016-12-18] MEDS ORDERED: Lactated Ringer's 1,000 ML IV SCH (16:00)
[2016-12-18] MEDS ORDERED: HYDROmorphone 1 mg/mL Inj IVPUSH PRN (16:00)
[2016-12-18] MEDS ORDERED: EPHEDrine Sulfate 50 mg/mL Inj IVPUSH PRN (16:00)
[2016-12-18] MEDS ORDERED: Ondansetron 2 mg/mL 2 mL Inj IVPUSH PRN (16:00)
--- NOTE | 2016-12-18 16:00 | PCM.HPANE ---
Patient Data Date of Service: Dec 18, 2016 Surgeon Admitting Provider:Everardo Javier MD Attending Provider:Everardo Javier MD Primary Care Physician:Ellie Rabago Other Provider: Reason for Visit Right Leg Cellulitis Ht/WT & BMI Height (Feet): 5 Height (Inches): 9.00 Weight (Kilograms): 77.500 Body Mass Index 26.64 Allergies Coded Allergies: No Known Allergies (Verified Allergy, Unknown, 12/13/16) Uncoded Allergies: HAYFEVER (Allergy, Unknown, 06/11/16) Past Anesthesia History Anesthesia History: Denies:: Abnormal Airway, Anesthesia Reactions, Difficult Intubation, Fam Anesthesia Reaction, Fam Malignant Hypertherm, Malignant Hyperthermia Diabetes History Hx Diabetes?: No Current Bedside Blood Glucose: 87 MRSA MRSA: No Medications Hypertension Medication: No Home Meds Incl Beta Karly: No Active Scripts Sennosides (Senna)8.6 Mg Cyhajz75.2 Mg PO BID PRN For Constipation #30 TABLET Prov:ALBERT GUERRA DO 12/16/16 [Senna/Docusate Sodium] (Senokot S)1 TABLET TABLET No Conflict Check1 Tablet PO BID #30 Prov:ALBERT GUERRA DO 12/16/16 Oxycodone ER (Oxycontin)10 Mg Tab.er.12h10 Mg PO BID #30 Prov:ALBERT GUERRA DO 12/16/16 oxyCODONE 5 Mg Tablet5 Mg PO Q4H PRN For Moderate Pain #30 TABLET Prov:ALBERT GUERRA DO 12/16/16 Hydrocodone-Acetaminophen 5-325 mg 1 Each Tablet1-2 Tablet PO Q4H PRN For Moderate Pain #30 TABLET Prov:ALBERT GUERRA DO 12/16/16 Gabapentin (Neurontin)400 Mg Imcrxev766 Mg PO QID #30 CAPSULE Prov:ALBERT GUERRA DO 12/16/16 [Loratadine] (Claritin)10 MG TABLET No Conflict Check10 Mg PO DAILY #30 Prov:ALBERT GUERRA DO 12/16/16 diphenhydrAMINE HCl (Benadryl)25 Mg Sdrpopk92 Mg PO Q4H PRN For Itching #30 CAPSULE Prov:ALBERT GUERRA DO 12/16/16 Reported Medications Multivitamin (Multivitamins)1 Each Capsule1 Each PO DAILY 12/14/16 Fluticasone Propionate (Flonase Allergy Relief)50 Mcg/Actuation [place].susp1 [place] NASAL QID 12/14/16 Albuterol HFA (Proair HFA)8.5 Gm Hfa.aer.ad2 Puffs INH Q4H PRN For Shortness of Breath #9 12/14/16 Hydrocodone-Acetaminophen 10-325 mg 1 Each Tablet1 Tab PO Q4H PRN For Pain #150 12/14/16 Furosemide 20 Mg Tab20 Mg PO BID #60 12/14/16 Gabapentin 400 Mg Brxsuyf692 Mg PO QID #120 12/14/16 Aspirin Chew 81 Mg Chew81 Mg PO DAILY Ref 0 06/11/16 Discontinued Reported Medications Cetirizine-Expunged Drug, Do Not Renew! 10 Mg Amotfj57 Mg PO DAILY 10/01/13 Ondansetron ODT 8 MGTab (Zofran ODT 8 MG Tab)8 Mg Tab.rapdis8 Mg SL/PO Q4 PRN # 20 TAB 8 MG 10/01/13 Phenylephrine Hcl (Nasal [place])30 Ml Spray1 [place] NS TID PRN 10/01/13 Loperamide-Expunged Drug, Do Not Renew! (Imodium-Expunged Drug, Do Not Renew!)2 Mg Tablet2 Mg PO PRN 10/01/13 Hydrocod/APAP-Expunged, Do Not Renew! (VICODIN 7.5/325-Expunged Drug, Do Not Renew)1 Ea Tablet1 Ea PO Q4-6H PRN 10/01/13 HYDROcodone/APAP-Expunged Drug, Do Not Renew! (Vicodin 10/325-Expunged Drug, Do Not Renew!)1 Tab Tablet1 Tab PO QID PRN #20 TAB 10/01/13 Fluticasone-Expunged Drug, Do Not Renew! (Flonase-Expunged Drug, Do Not Renew!) 120 Sprays Bmdl419 Sprays NA PM PRN 10/01/13 Docusate Sod-Expunged Drug, Do Not Renew! 250 Mg Thi640 Mg PO HS 10/01/13 Albuterol-Expunged Drug, Do Not Renew! 200 Puff/8.5 Gm Hfa.aer.ad200 Puff IH Q4 PRN 10/01/13 Ipratropium-Expunged Drug, Do Not Renew! 345 [place]/30 Ml Spray2 Spr NA TID #30 ML 10/01/13 Folic Acid/Multivits-Min/Lut (Multi-Vitamin Gummies)1 Each Tab.chew1 Each PO DAILY 10/01/13 Folic Acid-Expunged Drug, Do Not Renew! 1 Mg Tablet1 Mg PO DAILY 05/16/12 Cholecalciferol-Expunged Drug, Do Not Renew! (Vitamin D3-Expunged Drug, Do Not Renew!)1,000 Unit Tab.chew1,000 Unit PO DAILY 05/16/12 Sennosides-Expunged Drug, Do Not Renew! (Senna Soft-Expunged Drug, Do Not Renew! )15 Mg Ucpzgs50 Mg PO HS 05/16/12 Gabapentin-Expunged Drug, Do Not Renew! (Neurontin-Expunged Drug, Do Not Renew!) 400 Mg Thuxtwj994 Mg PO QID 05/16/12 History History of ENT Problems?: No HEENT History: Positive for:: Sinus Problem Denies:: Abnormal Airway Difficult Intubation Dysphagia Hearing Problem Denture Type: Full- Upper Full- Lower Hx of Heart Problems?: No Cardiovascular History: Denies:: Atrial Fibrillation Cardiac Surgery Chest Pain Congestive Heart Failure Heart Murmur Hypertension Irregular Heartbeat Pacemaker Thrombophlebitis Valvular Heart Disease Hx of Respiratory Problem?: Yes Respiratory History: Positive for:: COPD (patient states she does does not have copd but it is noted in chart history) Dyspnea Pneumonia (X 2 WHEN IN LATE 20S) Denies:: Asthma Chest Surgery Cough Emphysema Hemoptysis Tuberculosis Hx Neurologic Problems?: No Neurological History: Positive for:: CVA (1989 SLIGHT CVA) Denies:: Dementia Dizziness Headaches Parkinson's Disease Seizures Hx of GI Problems?: No Gastrointestinal History: Positive for:: Cirrhosis Denies:: Diverticulitis Gastrointestinal Bleeding Heartburn Hepatitis Hiatal Hernia Rectal Bleeding Hx of Problems?: No Female Hx: Denies:: Currently Hx Musculoskeletal Problems?: Yes Musculoskeletal History: Positive for:: Back Injury (back becky) Denies:: Joint Replacement Hx of Psycho/Social Problems?: No Psycho Social History: Denies:: Anxiety Bipolar Disorder Hx Depression Suicide Attempt Hx Surgeries?: Yes Hx Any Other Health Problems?: No Other History: Positive for:: Hospitalization Denies:: Cancer Endocrine Disease Thyroid Disease Hx Diabetes: NoBedside Blood Glucose: 87 Hx Alcohol Use: NoHx Substance Use: No Smoking Status: Smoker Current Status UNK Have You Smoked inLast 12 mo: YesApprox How Many Cigarettes/day: 10 Stop/Bang Treated for Sleep Apnea?: No Do You Have a CPAP Machine?: No BETTE Risk Assessment: Low Risk, <3 Yes Risk Assessment Category Category 1A: Patient has history of documented sleep apnea, and HAS NOT received any narcotic, sedative or anesthesia administration during this stay. Category 1B: Patient has history of documented sleep apnea, and HAS received any narcotic , sedative or anesthesia administration during this stay Category 2: Patient has SUSPECTED Obstructive Sleep Apnea, and HAS received any narcotic , sedative or anesthesia administration during this stay. Category 3: Patient has SUSPECTED Obstructive Sleep Apnea and HAS NOT received narcotic, sedative or anesthesia administration during this stay. Category 4: Outpatient in Procedural Areas with known sleep apnea or who screen positive for High Risk via the STOP/BANG questionnaire. Exam Exam Vital Signs Vital Signs Date Time Temp Pulse Resp B/P Pulse Ox O2 Delivery O2 Flow Rate FiO2 12/18/16 13:04 37.0 89 18 104/61 88 Nasal Cannula 0.50 12/18/16 08:50 37.0 95 16 106/64 94 Nasal Cannula 1.50 12/18/16 08:45 Supplement Oxygen HEENT/AIRWAY: MP 2, Mouth Opening (Wide, dentures) Lungs: Clear to Auscultation, Normal Air Movement Heart: Regular Rate/Rhythm, Normal S1, Normal S2 Meds/Labs/Diagnostics Admission Meds Current Medications Salmeterol Xinafoate/ Fluticasone 1 puff 1 puff BID INHALATION Last administered on 12/18/16 06:49; Start 12/18/16 at 00:35 Calcium Chloride/ Dextrose/Water (Calcium Chl 10% (Gm) Inj/D5W) 110 ml @ 110 mls/hr ONCE ONCE IV Last administered on 12/18/16 10:54; Start 12/18/16 at 08 :35; Stop 12/18/16 at 09:34; Status DC Bedside Blood Glucose: 87 Labs Test 12/13/16 17:58 12/13/16 21:59 12/14/16 02:45 12/15/16 03:10 Magnesium Level 1.8mg/dL (1.6-2.6) Total Bilirubin 0.2mg/dL (0.0-1.2) Aspartate Amino Transf (AST/SGOT) 16U/L (0-50) Alanine Aminotransferase (ALT/SGPT) 6U/L (0-32) Alkaline Phosphatase 112U/L (25-165) Troponin T < 0.010ug/L (0.0-0.011) Total Protein 6.6g/dL (6.4-8.4) Urine Color Yellow (YELLOW) Urine Appearance Clear (CLEAR,HAZY) Urine pH 6.0 (5.0-8.0) Urine Specific [place] 1.010 (1.003-1.035) Urine Protein Negativemg/dL (NEG,TRACE) Urine Glucose (UA) Negativemg/dL (NEGATIVE) Urine Ketones Negativemg/dL (NEGATIVE) Urine Occult Blood Negative (NEGATIVE) Urine Nitrite Negative (NEGATIVE) Urine Bilirubin Negative (NEGATIVE) Urine Urobilinogen Normalmg/dL (NORMAL) Urine Leukocyte Esterase Negative (NEGATIVE) Urine RBC 0-2/hpf (0-2) Urine WBC 6-10/hpf (0-5) Urine Epithelial Cells Few/hpf (NONE-MOD) Urine Crystals None seen (NONE SEEN) Urine Bacteria None/hpf (NONE-FEW) Urine Hyaline Casts None/lpf (NONE) Urine Granular Casts None seen (NONE SEEN) Urine Waxy Casts None seen (NONE SEEN) Urine Red Blood Cell Casts None seen (NONE SEEN) Urine White Blood Cell Casts None seen (NONE SEEN) Urine Mucus None seen (None Seen) Urine Trichomonas None seen (NONE SEEN) Urine Yeast None (NONE SEEN) Urine Culture Reflexed Indicated Erythrocyte Sedimentation Rate 32mm/hr (0-40) Prothrombin Time 10.7sec (8.1-12.5) Prothromb Time International Ratio 1.00ratio Test 12/16/16 03:34 12/17/16 06:40 12/18/16 06:30 Lactic Acid Level 0.8mmol/L (0.4-2.0) Total Creatine Kinase 93U/L (21-215) Albumin 2.2g/dL (3.4-5.0) Procalcitonin 0.27ng/mL (See Comment) Neutrophils (%) (Auto) 89.8% (40-74) Lymphocytes (%) (Auto) 4.7% (14-46) Monocytes (%) (Auto) 4.9% (4-12) Eosinophils (%) (Auto) 0.1% (0-5) Basophils (%) (Auto) 0.1% (0-3) White Blood Count 11.7th/mm3 (3.8-10.1) Red Blood Count 2.51mil/mm3 (3.90-5.20) Hemoglobin 7.6g/dL (12.0-15.6) Hematocrit 23.9% (35.0-46.0) Mean Corpuscular Volume 95.2fL (81-100) Mean Corpuscular Hemoglobin 30.3pg (27.0-35.0) Mean Corpuscular Hemoglobin Concent 31.8% (32.0-37.0) Red Cell Distribution Width 14.7% (12.3-15.4) Platelet Count 255bil/L (150-400) Sodium Level 140mEq/L (134-144) Potassium Level 4.5mEq/L (3.5-5.2) Chloride Level 105mEq/L (97-108) Carbon Dioxide Level 21mmol/L (18-29) Blood Urea Nitrogen 9mg/dL (8-27) Creatinine 0.47mg/dL (0.57-1.00) Estimat Glomerular Filtration Rate 190mL/min (>59) Glucose Level 74mg/dL (60-99) Calcium Level 6.9mg/dL (8.5-10.1) Plan Impression Patient chart reviewed, patient interviewed and anesthestic plan with risks, benefits, and alternatives discussed, and informed consent obtained. NPO Status: mn ASA Physical Status: ASA3 Severe Disease Anesthetic Plan: GA Bene/Risks/Altern/Consents: Yes HP Complete Prior to Induction: Yes Russell Marr MD Dec 18, 2016 16:00
[2016-12-18] MEDS ORDERED: Bacitracin 50,000 unit Inj IRRIGATION ONE (16:40)
--- NOTE | 2016-12-18 16:54 | NUR ---
NUTRITION ASSESSMENT: ASSESS: 66 YO female admitted for Right leg cellulitis. Pt is currently NPO for repeat surgical I and D today. Pt has had poor po intake now x 5 days. PMHx: Arthritis, COPD, CVA, Pneumonia, TIA, anemia, cirrhosis, GERD, osteoporosis. LABS: Reviewed. Cr .47, Ca 6.9, Alb 2.2 MEDS: Reviewed. GI: BM x 1 (12/18) SKIN: I and D site for R leg cellulitis, likely will need wound vac. CURRENT WT: 77.5 kg. DIET: NPO for surgery. Pt has refused most meals x 5 days. EST. NEEDS: 4510-0291 kcals (25-30 kcals/kg BW), 95-115 g protein (1.2-1.5 g/kg BW) NUTRITION DIAGNOSIS: 1.) Inadequate oral intake related to unknown etiology as evidenced by current NPO and refusal of meals x 5 days. NUTRITION INTERVENTION: 1.) Will continue to await timely advancement of diet after surgery. MONITOR / EVAL: PO intake, diet advancement /tolerance, labs, nutritional status. Follow per high nutritional risk guidelines.
--- NOTE | 2016-12-18 17:01 | PROG NOTE ---
[address] [address] PROGRESS NOTE PATIENT: OSMAN WOLFE : 1950 MR#: [id number] ADMIT: 12/13/2016 JOB ID: [id number] DATE: 12/18/2016 REASON FOR FOLLOWUP: Polymicrobial abscess, right lower extremity. The patient today is complaining bitterly of pain in her back and states she will not be transferred for today's additional debridement and possible skin grafting until she has adequate analgesia. She denies fevers, chills. She has no new pulmonary or GI symptoms. She has minimal pain in the right lower extremity below the knee. It is "tightly wrapped in a bulky postop type." PHYSICAL EXAMINATION: Reveals an afebrile woman. Temp 37, pulse 95, respiratory rate 16, blood pressure 106/64. She is saturating well on 1.5 L. Examination of the eyes reveals no notable abnormalities. Lungs are clear. Abdomen soft and nontender. Right lower extremity, as noted, has a very large dressing present from the knee to the ankle basically with a protruding drain. This will be changed in the operating room today if the patient agrees to go. No skin rashes noted. LABORATORIES: Include a white count of 11,700, platelet count 255, creatinine 0.47. LFTs normal. The remarkable part of this case are the cultures. A nasal MRSA screen was positive. Cultures from the leg have grown Enterobacter cloacae which is sensitive to Cipro as well as MSSA and carinii bacteria striatum as well as group B strep. No anaerobes have been isolated so far. IMAGING: The imaging on this patient continues to be a major problem. On December 13, the patient had a tib-fib MRI which I viewed on the screen but am not an expert in reading. I discussed this briefly with the radiologist over the phone but as of yet there is no formal report available either on [employer] ([facility]) or [facility]. I called Radiology about this again today. IMPRESSION: Severe polymicrobial abscess, right lower extremity. Unclear if there is bony involvement or not as we do not have a formal reading on the MRI scan, but I would be inclined to think probably not but we await clarification. RECOMMENDATIONS: 1. Will continue with daptomycin at this point for treatment of the Corynebacterium striatum (review of the literature suggests Corynebacterium is almost always very sensitive to daptomycin (as well as coverage for MSSA and possible MRSA involvement. 2. Will switch the meropenem to ertapenem for treatment of the Enterobacter as well as any possible anaerobes. We may transition this all the way to oral Cipro, however, for discharge depending on how things go in the operating room today, and the final report on the MRI scan. 3. This case discussed with multiple providers.
[2016-12-18] MEDS ORDERED: Polyethylene Glycol (PEG) 17 Gm Powder PO PRN (17:10)
[2016-12-18] MEDS ORDERED: Sodium Biphos-Phos 133 mL Enema RECTAL PRN (17:10)
[2016-12-18] MEDS ORDERED: Magnesium Hydroxide 10 mL Oral Concentration PO PRN (17:10)
--- NOTE | 2016-12-18 17:11 | PCM.ANEP1 ---
Post Anesthesia Phase 1 PACU Phase 1 Assessment Date of Service: Dec 18, 2016 Vital Signs PACU HR 101., RR 20, BP 105/63, T 3.7, O2 96% on 10L Vital Signs Date Time Temp Pulse Resp B/P Pulse Ox O2 Delivery O2 Flow Rate FiO2 12/18/16 17:05 36.7 105/63 12/18/16 13:04 37.0 89 18 104/61 88 Nasal Cannula 0.50 Anesthetic Administered: GA Level of Alertness: Awake, talking HERRON's with Equal Strength: Yes Pain: Yes (R knee, unrated) Pain Scale Score: 8 Nausea or Vomiting: No Oxygen Delivery: Simple Mask Lungs: Clear to Auscultation, Normal Air Movement Dermatome Level: Full Sensation Russell Marr MD Dec 18, 2016 17:11
--- NOTE | 2016-12-18 17:12 | PCM.ANEP2 ---
Post Anesthesia Evaluation ASA/CMS Post Anesthesia Date of Service: Dec 18, 2016 VS in Patient's Normal Range?: Yes Resp Stable; Airway Patent?: Yes CV Function & Hydration Stable: Yes Mental Status Recovered?: Yes Pain control Satisfactory?: No (baseline) N/V Control Satisfactory?: Yes Russell Marr MD Dec 18, 2016 17:12
--- NOTE | 2016-12-18 17:39 | PCM.PNMED ---
Subjective Date of Service Dec 18, 2016 Subjective Patient was examined at bedside today. Patient denies any chest pain, shortness of breath, nausea, vomiting, diarrhea. Patient complains of lower extremity pain bilaterally Exam Vital Signs Vital Sign - Last Date Time Temp Pulse Resp B/P Pulse Ox O2 Delivery O2 Flow Rate FiO2 12/18/16 17:25 36.2 94 24 110/59 91 Nasal Cannula 4 Intake and Output 12/17/16 12/17/16 12/18/16 Cumulative From/Thru 15:00 23:00 07:00 12/13/16 16:15 - 12/18/16 04:38 Intake Total 1154 ml 980 ml 18264 ml Output Total 3162 ml Balance 1154 ml 980 ml 9803 ml Intake Oral 400 ml 200 ml 2020 ml IV Total 754 ml 780 ml 54792 ml TPN/PPN 770 ml Output Urine Total 3150 ml Urine/Stool Mix 2 ml Estimated Blood Loss 10 ml # Voids 2 2 9 # Bowel Movements 2 1 4 Exam Physical Exam: GEN: Patient was awake, alert, responding appropriately to questions HEENT: PERRLA, EOMI, Neck soft supple, trachea midline, nomocephalic/atraumatic CV: +S1/S2, irregular Respiratory: CTAB, no wheezes, rales, rhonchi GI: +bowel sounds x4, soft, compressible, non TTP EXT: no c/c/e left lower extremity, right lower extremity dressing clean dry and intact on the right lower extremity Musculoskeletal: S1 intact, positive dorsi flexion and plantar flexion bilaterally Neuro: CN II-XII grossly intact Psych: mood and affect were appropriate IVs and Medications Medications Reviewed: Medications were reviewed in detail Medications Current Medications Calcium Carbonate 500 mg TIDWM PO Last administered on 12/18/16 12:26; Admin Dose 500 MG; Start 12/17/16 at 08:22 Salmeterol Xinafoate/ Fluticasone 1 puff 1 puff BID INHALATION Last administered on 12/18/16 06:49; Admin Dose 1 PUFF; Start 12/18/16 at 00:35 Ertapenem/Sodium Chloride 50 ml @ 100 mls/hr Q24 IV; Start 12/18/16 at 11:50 Albuterol 2.5 mg 2.5 mg ONCE PRN NEB; Start 12/18/16 at 16:00 Lactated Ringer's 1,000 ml @ 120 mls/hr Q8H20M IV Last administered on t 16:04; Start 12/18/16 at 16:00; Stop 12/18/16 at 23:59 Ephedrine Systolic SBP below 90 ... Q2MIN PRN IVPUSH; Start 12/18/16 at 16:00 Phenylephrine HCl Systolic BP below 90 ... ONCE PRN IVPUSH; Start 12/18/16 at 16:00 Lactated Ringer's 500 ml @ 0 mls/hr Q0M PRN IV; Start 12/18/16 at 16:00 Labetalol HCl 5 mg Q10MIN PRN IV; Start 12/18/16 at 16:00 Hydralazine HCl 5 mg Q10MIN PRN IVPUSH; Start 12/18/16 at 16:00 Atropine Sulfate 0.4 mg PRN PRN IVPUSH; Start 12/18/16 at 16:00 Fentanyl Citrate 25-50 mcg IV every 5 min p... Q5MIN PRN IVPUSH; Start at 16:00 Morphine Sulfate 1-4 mg IV every 5 min p... Q5MIN PRN IVPUSH; Start 12/18/16 at 16:00 Hydromorphone HCl 0.2-1 mg IV every 5 min p... Q5MIN PRN IVPUSH; Start at 16:00 Meperidine HCl 12.5-25 mg IV every 5 min p... Q5MIN PRN IVPUSH; Start 12/18/16 at 16:00 Diphenhydramine HCl 12.5-50 mg IV prn itchi... Q30MIN PRN IVPUSH; Start at 16:00 Dexamethasone Sodium Phosphate 4 mg ONCE PRN IVPUSH; Start 12/18/16 at 16:00 Metoclopramide HCl 10 mg Q10MIN PRN IVPUSH; Start 12/18/16 at 16:00 Ondansetron HCl 4-8 mg IV every 4 hours ... Q4H PRN IVPUSH; Start 12/18/16 at 16:00 Midazolam HCl 0.5-1 mg IV every 5 min p... Q5MIN PRN IVPUSH; Start 12/18/16 at 16:00 Senna 1 tablet BID PO; Start 12/18/16 at 20:30; Status UNV Docusate Sodium 100 mg BID PO; Start 12/18/16 at 20:30; Status UNV Magnesium Hydroxide 10 ml HS PRN PO; Start 12/18/16 at 17:10; Status UNV Bisacodyl 10 mg DAILY PRN RECTAL; Start 12/18/16 at 17:10; Status UNV Polyethylene Glycol 17 gm DAILY PRN PO; Start 12/18/16 at 17:10; Status UNV Sodium Biphosphate/ Sodium Phosphate 133 ml DAILY PRN RECTAL; Start 12/18/16 at 17:10; Status UNV Lab and Diagnostics Result Diagram: 12/18/1630 12/18/16629 X-Rays, CTs and MRIs Date of Service: 12/13/16 173 PROCEDURE: X-RAY CHEST ONE VIEW, PORTABLE ([id number]) IMPRESSION: No acute cardiopulmonary disease Dictated by: Anthony Aldrich M.D. on 12/13/2016 at 19:48 Date of Service: 12/13/161999 PROCEDURE: CT TIBIA FIBULA RIGHT W/CONTRAST ([id number]) INDICATIONS: R leg abscess IMPRESSION: Possible rim-enhancing abscess in the anterior soft tissues at the mid tibial diaphyseal level, although unclear if this communicates with the skin surface. Please correlate with clinical exam findings Possible osteonecrosis/AVN involving the distal tibial diametaphysis. Please correlate clinically and with radiographs. Confirmation with ankle MRI could be performed as clinical warranted. Severe circumferential subcutaneous and soft tissue swelling in keeping with cellulitis. Dictated by: Anthony Aldrich M.D. on 12/13/2016 at 20:50 Assessment & Plan Patient is a 66 year old female with a history of lupus, neuropathy, COPD, TIA, CVA . Admitted for right lower leg cellulitis, abscess, and planned I&D today. Hospital Day 3. Cellulitis with abscess, present on admission. Acute. Improving -Surgical I&D today -MRSA positive -Continue pain management with Dilaudid and oxycodone -Continue antibiotics per ID of clindamycin, meropenem, and daptomycin -Patient leukocytosis is improving on current antibiotic therapy -We will continue to monitor Hypocalcemia -Calcium was 6.9 -1 dose of calcium gluconate -Continue calcium carbonate 3 times a day -We will continue to monitor COPD - continue home dose Advair Neuropathy - continue home dose gabapentin - Vicodin held Lupus - continue to monitor GERD - patient not on any medication for this Allergic rhinitis - continue home cetirizine - Acetaminophen as needed for mild pain/fever/headache - Bowel regimen as needed - Antiemetic as needed DVT: anticoagulation held due to I&D in am, SCD not appropriate due to lesion in lower extremity GI: not indicated CODE: DNR/DNI Disposition: Likely discharge to [facility] within 1-2 days post repeat surgical I&D and debridement today. VTE Mechanical Devices: Intermittant Pneumatic CD Resuscitation Status: DNR/DNI:Do Not Resuscitate/Intubate Mariza Collins DO Dec 18, 2016 17:39
[2016-12-18] MEDS: Ertapenem Inj 1,000 MG in 0.9% Sodium Chloride 50 ML IV SCH (18:35)
[2016-12-19] VITALS (7 sets, daily range): BP systolic 85–111; BP diastolic 46–68; PULSE 88–103; RESP 16–24; O2SAT 78–97
[2016-12-19] MEDS: 0.9% Sodium Chloride 1,000 ML IV SCH ×3 (00:07→15:18)
[2016-12-19] MEDS: Sodium Chloride LOK Flush 10 mL Syringe IV SCH ×6 (00:08→16:09)
--- NOTE | 2016-12-19 01:01 | OP ---
[address] [address] OPERATIVE REPORT PATIENT: OSMAN WOLFE : 1950 MR#: [id number] ADMIT: 12/13/2016 JOB ID: [id number] DATE OF SURGERY: 12/18/2016 PREOPERATIVE DIAGNOSIS(ES): 1. Right leg abscess cellulitis. 2. Right leg persistent wound. POSTOPERATIVE DIAGNOSIS(ES): 1. Right leg abscess cellulitis. 2. Right leg persistent wound with necrotic skin. PROCEDURE: 1. Right leg irrigation and debridement with excision of skin and subcutaneous tissue measuring 15 x 2 cm in dimension. 2. Application of a DME wound VAC with a sponge measuring 15 x 5 cm in dimension. SURGEON: Odilon Bauer D.O. ANESTHESIA: General. HISTORY: The patient is a 66-year-old female that presented with severe lower extremity infection. She was originally seen by Troy Almonte and taken back for an irrigation and debridement with application of a wound VAC. I took her back this weekend to take over the care as Dr. Almonte was out of town. I further debrided and partially closed the wound and reapplied the wound VAC. The plan was to go back today for application of a small split-thickness skin graft. The patient understood the risks, benefits, and indications to proceed with a split-thickness skin graft with the possibility of further debridement and just application of the wound VAC if there was still significant drainage or further necrotic skin and tissue. The patient had all questions answered. Consent was signed and placed in the chart. PROCEDURE IN DETAIL: The patient was brought to the operative suite and placed supine on the operating table. Surgical time-out was performed. Everyone the room was in agreement. After appropriate anesthesia was obtained, the wound VAC was removed. There was significant further necrotic skin edges to the inferior aspect of the incision measuring approximately 15 x 2 cm in dimension. There was still further copious murky drainage from the wound. The skin and subcutaneous tissues were then sharply excised along the edges of the incision for a length of 15 cm and 1 cm proximally on each edge of the incision. This was excised back until there was bleeding noted from the skin edges. Further irrigation was then performed, and 6 L of normal saline with bacitracin was then irrigated through the wound. The decision was made not to proceed with a split-thickness skin graft due to further skin necrosis and further wound drainage. Wound VAC was then reapplied. Excellent seal was then achieved. The wound VAC dimension was 15 x 5 cm. ESTIMATED BLOOD LOSS: 25 cc. COMPLICATIONS: None. DISPOSITION: The patient tolerated the procedure well. Anesthesia was reversed. The patient was transferred to the PACU for recovery. POSTOPERATIVE PLAN: Unfortunately, the patient's skin was further necrotic and a split-thickness skin graft was unable to be performed. The wound itself is now rather large and further encompassing the lower leg. It is starting to get near the subcutaneous border of the tibia. The patient will require a repeat procedure for another irrigation and possible split-thickness skin graft. I would like to also get input from Plastic Surgery to see if they feel that any other further wound coverage options would be more beneficial for the patient. I would appreciate their input. The patient will require further prolonged hospitalization until again the wound is stable and can be covered. EHSAN
--- NOTE | 2016-12-19 04:46 | NUR ---
Refusing oxygen Patient continuously pulls oxygen out of her nose and refuses to wear a mask. O2 sats drop into low 80s on RA. Oxygen replaced regularly and patient reminded of the importance of good oxygen saturation for wound healing. Patient grumbles and allows oxygen to be replaced, only to pull it off a few minutes later. Legs elevated on pillows. R. leg to wound vac maintaining good suction.
[2016-12-19 06:47] LABS: BASOPHILS % (AUTO) 0.3 % (0-3); EOSINOPHILS % (AUTO) 3.7 % (0-5); MONOCYTES % (AUTO) 11.5 % (4-12); Mean Corpuscular Hemoglobin 30.1 pg (27.0-35.0); Mean Corpuscular Volume 92.7 fL (81-100); NEUTROPHILS % (AUTO) 67.7 % (40-74); Platelet Count 286 bil/L (150-400)
--- NOTE | 2016-12-19 08:00 | NUR ---
Respiratory Pt's O2 increased to 5L via NC. O2 86%. Refuses Oxy mask. Will continue to offer.
[2016-12-19] MEDS: Fluticasone-Salmeterol 100-50 Inhaler INHALATION SCH ×2 (08:23→20:01)
[2016-12-19] MEDS: oxyCODONE ER 10 mg ER12 Tablet PO SCH ×2 (08:27→19:56)
[2016-12-19] MEDS: Senna-Docusate 8.6-50 mg Tablet PO SCH ×4 (08:27→20:01)
[2016-12-19] MEDS: DAPTOmycin Inj 500 MG in 0.9% Sodium Chloride 50 ML IV SCH (09:20)
--- NOTE | 2016-12-19 09:45 | NUR ---
OT attempted evaluation this morning X 2. Pt. not willing or interested in getting out of bed and minimally willing to entertain any conversation at all. She says that she's "fine" and will be "just fine" at home. She is adamantly refusing to consider any discharge setting other than home with caregivers and home health. It sounds as though she has at least some daily caregiver assist available and a son who lives in [place] who she thinks can provide assist as well. She reports a home setting that is accessible and with necessary safety modifications in bathroom already in place. No further OT at this time. Micheal Morales, OTR/L
--- NOTE | 2016-12-19 10:08 | NUR ---
Refusing oxygen Pt is refusing oxygen, stating, "I don't need it." O2 is 77%, A&Ox3. NC is within pt's reach if she wishes to wear it. Will continue to monitor. Addendum: 12/19/16 at 1038 by JAYLIN REYNOLDS RN Adonay hutchinson
[2016-12-19] MEDS: HYDROcodone-APAP 5-325 mg Tablet PO PRN ×2 (10:18→16:34)
--- NOTE | 2016-12-19 10:31 | NUR ---
Refusing care It was noted that the pt's brief is wet. Pt is refusing to be changed at this time. Also refuses to be turned in bed. Pt educated on risk of skin breakdown. Will continue to monitor.
--- NOTE | 2016-12-19 10:33 | PCM.PNORTH ---
Subjective Date of Service: Dec 19, 2016 Visit Information: Reason for Visit Right Leg Cellulitis Surgery/Surgery Date Post-Op Day # Date of Admission: Dec 13, 2016 at 20:39 Hospital Day # Subjective Found patient awake and alert and sitting up in bed preparing to order breakfast. No complaints of pain at this time. Discussed additional debridement performed yesterday in her surgery and the fact that her wound has enlarged to some degree. Patient was aware of this. I have advised patient that Dr. Alvarez from plastics will consult with her regarding closure of the wound with graft or otherwise as appropriate. Patient advised me this morning that her wound VAC was leaking at the posterior aspect of her leg distally just above her heel. Postop General: No Complaints, No Shortness of Breath, No Chest Pain, Good Appetite Pain Management: PO Objective Exam Objective Orientation: Alert and oriented 3 and pleasant. Dressing: Interoperative wound VAC is in place and working. There is some seepage from under the plastic at the posterior distal aspect of the calf above the heel. Wound: Wound is observed through the wound VAC plastic and appears somewhat wider than it had previously and is filled with wound VAC foam. Compartments: Calf and thigh are soft and nontender Mobility/sensation: Toe wiggle and sensation are intact at right lower extremity distally Abduction wedge: None SRAVANI hose: None Mendes: None Drain: Negative pressure wound VAC in place and working Gait: None Vital Signs and I/O Vital Sign - Last Date Time Temp Pulse Resp B/P Pulse Ox O2 Delivery O2 Flow Rate FiO2 12/19/16 09:25 36.8 103 24 100/65 78 Room Air 12/19/16 04:42 2.00 Intake and Output 12/18/16 12/18/16 12/19/16 Cumulative From/Thru 15:00 23:00 07:00 12/13/16 16:15 - 12/19/16 06:40 Intake Total 1602 ml 872 ml 76892 ml Output Total 650 ml 3812 ml Balance 1602 ml 222 ml 57922 ml Intake Oral 2020 ml IV Total 1602 ml 872 ml 10779 ml TPN/PPN 770 ml Output Urine Total 650 ml 3800 ml Urine/Stool Mix 2 ml Estimated Blood Loss 10 ml # Voids 3 12 # Bowel Movements 4 Lab & Micro Results Laboratory Tests Test 12/19/16 06:08 White Blood Count 7.6th/mm3 (3.8-10.1) Red Blood Count 2.59mil/mm3 (3.90-5.20) Hemoglobin 7.8g/dL (12.0-15.6) Hematocrit 24.0% (35.0-46.0) Mean Corpuscular Volume 92.7fL (81-100) Mean Corpuscular Hemoglobin 30.1pg (27.0-35.0) Mean Corpuscular Hemoglobin Concent 32.5% (32.0-37.0) Red Cell Distribution Width 13.9% (12.3-15.4) Platelet Count 286bil/L (150-400) Neutrophils (%) (Auto) 67.7% (40-74) Lymphocytes (%) (Auto) 16.1% (14-46) Monocytes (%) (Auto) 11.5% (4-12) Eosinophils (%) (Auto) 3.7% (0-5) Basophils (%) (Auto) 0.3% (0-3) Sodium Level 145mEq/L (134-144) Potassium Level 4.5mEq/L (3.5-5.2) Chloride Level 111mEq/L (97-108) Carbon Dioxide Level 21mmol/L (18-29) Blood Urea Nitrogen 9mg/dL (8-27) Creatinine 0.53mg/dL (0.57-1.00) Estimat Glomerular Filtration Rate 166mL/min (>59) Glucose Level 84mg/dL (60-99) Calcium Level 7.6mg/dL (8.5-10.1) Total Bilirubin 0.2mg/dL (0.0-1.2) Aspartate Amino Transf (AST/SGOT) 21U/L (0-50) Alanine Aminotransferase (ALT/SGPT) 7U/L (0-32) Alkaline Phosphatase 86U/L (25-165) Total Protein 4.7g/dL (6.4-8.4) Albumin 1.7g/dL (3.4-5.0) Microbiology 12/13/16 Blood Culture - Final, Complete NO GROWTH AFTER 5 DAYS 12/13/16 MRSA Surveillance Culture - Final, Complete Screen Positive For Mrsa 12/13/16 Urine Culture - Final, Complete Mixed Urogenital Rolanda 12/14/16 Gram Stain - Final, Resulted 12/14/16 Culture & Sensitivity - Preliminary, Resulted Beta Streptococcus Group B 12/14/16 Anaerobic Culture - Preliminary, Resulted 12/14/16 Fungal Culture - Preliminary, Resulted No fungus isolated to date. Result Diagram: 12/19/16 0612/19/16 06 General Appearance: Alert, Oriented X3, Cooperative, No Acute Distress Extremities: No Compartment Syndrom Noted, Thigh & Calf Soft/Nontender Postop Sensory Motor: Distal Motor Intact, Movement in Toes, Distal Sensation Intact SURGICAL WOUND : Drain Location Body Site: RANGEL Wound Drainage Type: Wound Vac Activity: Activity per PT, Ambulate with PT (nonweightbearing at this time secondary to wound VAC and pending return to the OR for repeat I&D and likely wound closure. Patient may participate in bed mobility and upper extremity mobility as able.) Catheters: None Assessment & Plan Plan Postadmit day # 6 from a right lower extremity cellulitis with abscess. Patient has undergone 3 I&D or seizures at the right lower extremity anteriorly with VAC placement. These have occurred on 12/13/2016, 12/16/2016 and 2016 and have been performed by Dr. Troy Almonte and Dr. Odilon Bauer. Weight bearing status: Nonweightbearing on the right lower extremity Mobility aid: Wheelchair and front wheeled walker Immobilization: None Precautions: Physical therapy: Continue physical therapy as deemed appropriate for patient mobility and safety. Pain control: Continue by mouth pain control as needed DVT prophylaxis: No by mouth pain control secondary to frequent returns to the operating room with large open wound. Wound care: Maintain negative pressure wound VAC in place and working. Infectious DZ: Dr. Lopez is working with this patient regarding infectious disease issues. Patient is currently on daptomycin and ertapenem. Mendes: Absent Dressing: Negative pressure wound VAC Drain: Negative pressure wound VAC Abduction wedge: Absent SRAVANI hose: Absent Nursing communication: I have requested that wound care team look at leaking at posterior wound VAC at distal calf in an effort to solve this. 2-week follow-up: TBD 6-week follow-up: TBD Care plan: Dr. Odilon Bauer has requested that Dr. Alvarez from plastics consult with the patient regarding closure of her leg wound. Orthopedics thanks hospitalist service for their help in the medical management of this patient. Discharge plan: TBD. Discharge likely after Dr. Alvarez from plastics consults for closure of wound and home wound VAC is authorized. Resuscitation Status: DNR/DNI:Do Not Resuscitate/Intubate Jordon Everett PA-C Dec 19, 2016 09:55
--- NOTE | 2016-12-19 11:55 | NUR ---
IV Antibiotics delayed due to IV infiltration. IV will be restarted and antibiotics continued.
[2016-12-19] MEDS: Ertapenem Inj 1,000 MG in 0.9% Sodium Chloride 50 ML IV SCH (12:37)
--- NOTE | 2016-12-19 13:52 | PATH ---
SURGICAL PATHOLOGY Attending Physician:See Additional MD CASE STATUS: Signed Out PATIENT NAME: OSMAN WOLFE PID: [id number] : 1950 DATE COLLECTED:12/14/2016 22:27 SPECIMEN: Soft Tissue Mass, Biopsy CLINICAL HISTORY: RIGHT LEG CELLULITIS 1). RIGHT TIBIA WOUND FINAL DIAGNOSIS: Soft Tissue from Right Leg: Severe acute inflammation with extensive tissue necrosis and prominent reactive fibrosis. ICD10 L03.115 GROSS DESCRIPTION: The specimen is received in formalin, labeled with the patient's name, sublabeled as right tibial wound for pathology and consists of multiple pieces of nguyen-belle rubbery glistening partially friable tissue (8.8 x 4.7 x 2.5 cm in aggregate). 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 12/16/16 MICRO DESCRIPTION: Sections are of soft tissue stated to be from the right leg in the region of the tibia. This soft tissue is diffusely involved with severe acute inflammation as well as reactive fibrosis and extensive tissue necrosis. There is no evidence of neoplasm. ICD-9 CODES: CPT CODES: 40621 Electronically Signed Out Ritchie Nair MD [facility] [address], [place] [address] Technical component performed at [facility], [address] [place] [address] Ave[address], [place], [address]
--- NOTE | 2016-12-19 14:31 | NUR ---
Wound Care Spoke with Ortho this am, NPWT was leaking so I went in to assess and was able to reseal the system using tincture of benzoin and additional drape. Asked plastic surgeon Dr Alvarez if he wished to see the wound prior to his intervention later this week and he did not feel the need to. My understanding is that he will take the patient to OR for delayed primary closure. Working on authorization of home going NPWT in the meantime in case it is needed. Will follow as needed.
--- NOTE | 2016-12-19 14:35 | PROG NOTE ---
[address] [address] PROGRESS NOTE PATIENT: OSMAN WOLFE : 1950 MR#: [id number] ADMIT: 12/13/2016 JOB ID: [id number] DATE: 12/19/2016 INFECTIOUS DISEASE FOLLOW UP NOTE: REASON FOR FOLLOWUP: Extensive right lower extremity abscess. INTERVAL HISTORY: The patient has undergone additional debridement of her right lower extremity in the past 24 hours. Additional abscess was found and we were unable to do any skin grafting as there is still too much inflammatory and infectious material. The patient tolerated the procedure well though she now has a variety of seemingly unrelated complaints but she says her leg pain is surprisingly minimal. She has no fevers, no chills and no respiratory or GI complaints. PHYSICAL EXAMINATION: Reveals an afebrile woman. Temperature 36.8, pulse 100, respiratory rate 24, blood pressure 100/65, saturating 92% on 5 L. Her mental status seems clear. Oral cavity negative. Lungs fairly clear anteriorly. No rales or rhonchi. Abdomen soft and nontender. The right lower extremity has a large Wound VAC occupying most of the mid butler area. There is only [id number] pain around this area and there is very little in the way of cellulitis surrounding this large Wound VAC. LABORATORIES: Include a white count now normal at 7600, for the first day. Also the first day we have a normal differential on that white count. Creatinine is 0.53. LFTs are normal. Urinalysis 6-10 white cells. Micro studies include the leg growing group B strep Enterobacter cloacae, Corynebacteria striatum and MSSA. The nose is growing MRSA but that was not found in the wound. IMAGING: The final imaging is available now from the MRI done five or six days ago. It shows that there is a pronounced inflammatory process involving the right calf, which was an enhancing 9 x 4 cm abscess. 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 The operative note from yesterday afternoon from Dr. Bauer was reviewed. He discusses how additional necrosis was found with a copious murky fluid emerging from the wound as well. The decision was made not to proceed with a split thickness skin graft and further Wound VAC was planned. IMPRESSION: This is an unfortunate woman with a truly extraordinary abscess involving the right lower extremity. At least four organisms have been isolated to date from this massive wound and two large debridements have been required. We are still a ways from control of this infection, but it is at least gratifying to see her white count and differential normalizing. RECOMMENDATIONS: 1. I have asked the lab to check the Corynebacteria for daptomycin susceptibility. 2. Will continue with our current regimen which includes daptomycin and ertapenem for the isolated organisms. 3. Will continue to closely follow this patient with you and plan to see her again on December 21 unless there are additional questions requiring our presence tomorrow.
--- NOTE | 2016-12-19 14:39 | PCM.PNMED ---
Subjective Date of Service Dec 19, 2016 Subjective Patient was examined at bedside today. Patient denies any chest pain, shortness of breath, nausea, vomiting, diarrhea. Patient states that her pain is well-controlled. Exam Vital Signs Vital Sign - Last Date Time Temp Pulse Resp B/P Pulse Ox O2 Delivery O2 Flow Rate FiO2 12/19/16 11:45 92 Nasal Cannula 5.00 12/19/16 09:25 36.8 103 24 100/65 Intake and Output 12/18/16 12/18/16 12/19/16 Cumulative From/Thru 15:00 23:00 07:00 12/13/16 16:15 - 12/19/16 06:40 Intake Total 1602 ml 872 ml 30675 ml Output Total 650 ml 3812 ml Balance 1602 ml 222 ml 48810 ml Intake Oral 2020 ml IV Total 1602 ml 872 ml 06412 ml TPN/PPN 770 ml Output Urine Total 650 ml 3800 ml Urine/Stool Mix 2 ml Estimated Blood Loss 10 ml # Voids 3 12 # Bowel Movements 4 Exam Physical Exam: GEN: Patient was awake, alert, responding appropriately to questions HEENT: PERRLA, EOMI, Neck soft supple, trachea midline, nomocephalic/atraumatic CV: +S1/S2, irregular Respiratory: CTAB, no wheezes, rales, rhonchi GI: +bowel sounds x4, soft, compressible, non TTP EXT: no c/c, right lower extremity wound VAC in place. Neuro: CN II-XII grossly intact Psych: mood and affect were appropriate IVs and Medications Medications Reviewed: Medications were reviewed in detail Medications Current Medications Salmeterol Xinafoate/ Fluticasone 1 puff 1 puff BID INHALATION Last administered on 12/19/16 08:23; Admin Dose 1 PUFF; Start 12/18/16 at 00:35 Ertapenem/Sodium Chloride 50 ml @ 100 mls/hr Q24 IV Last administered on 12:37; Admin Dose 100 MLS/HR; Start 12/18/16 at 11:50 Albuterol 2.5 mg 2.5 mg ONCE PRN NEB; Start 12/18/16 at 16:00; Stop 12/18/16 at 17:54; Status DC Lactated Ringer's 1,000 ml @ 120 mls/hr Q8H20M IV Last administered on t 16:04; Start 12/18/16 at 16:00; Stop 12/18/16 at 17:54; Status DC Ephedrine Systolic SBP below 90 ... Q2MIN PRN IVPUSH; Start 12/18/16 at 16:00; Stop 12/18/16 at 17:54; Status DC Phenylephrine HCl Systolic BP below 90 ... ONCE PRN IVPUSH; Start 12/18/16 at 16:00; Stop 12/18/16 at 17:54; Status DC Lactated Ringer's 500 ml @ 0 mls/hr Q0M PRN IV; Start 12/18/16 at 16:00; Stop at 17:54; Status DC Labetalol HCl 5 mg Q10MIN PRN IV; Start 12/18/16 at 16:00; Stop 12/18/16 at 17: 54; Status DC Hydralazine HCl 5 mg Q10MIN PRN IVPUSH; Start 12/18/16 at 16:00; Stop 12/18/16 at 17:54; Status DC Atropine Sulfate 0.4 mg PRN PRN IVPUSH; Start 12/18/16 at 16:00; Stop 12/18/16 at 17:54; Status DC Fentanyl Citrate 25-50 mcg IV every 5 min p... Q5MIN PRN IVPUSH; Start at 16:00; Stop 12/18/16 at 17:54; Status DC Morphine Sulfate 1-4 mg IV every 5 min p... Q5MIN PRN IVPUSH; Start 12/18/16 at 16:00; Stop 12/18/16 at 17:54; Status DC Hydromorphone HCl 0.2-1 mg IV every 5 min p... Q5MIN PRN IVPUSH; Start at 16:00; Stop 12/18/16 at 17:54; Status DC Meperidine HCl 12.5-25 mg IV every 5 min p... Q5MIN PRN IVPUSH; Start 12/18/16 at 16:00; Stop 12/18/16 at 17:54; Status DC Diphenhydramine HCl 12.5-50 mg IV prn itchi... Q30MIN PRN IVPUSH; Start at 16:00; Stop 12/18/16 at 17:54; Status DC Dexamethasone Sodium Phosphate 4 mg ONCE PRN IVPUSH; Start 12/18/16 at 16:00; Stop 12/18/16 at 17:54; Status DC Metoclopramide HCl 10 mg Q10MIN PRN IVPUSH; Start 12/18/16 at 16:00; Stop 12/18 at 17:54; Status DC Ondansetron HCl 4-8 mg IV every 4 hours ... Q4H PRN IVPUSH; Start 12/18/16 at 16:00; Stop 12/18/16 at 17:54; Status DC Midazolam HCl 0.5-1 mg IV every 5 min p... Q5MIN PRN IVPUSH; Start 12/18/16 at 16:00; Stop 12/18/16 at 17:54; Status DC Senna 1 tablet BID PO; Start 12/18/16 at 20:30 Docusate Sodium 100 mg BID PO; Start 12/18/16 at 20:30 Magnesium Hydroxide 10 ml HS PRN PO; Start 12/18/16 at 17:10 Bisacodyl 10 mg DAILY PRN RECTAL; Start 12/18/16 at 17:10 Polyethylene Glycol 17 gm DAILY PRN PO; Start 12/18/16 at 17:10 Sodium Biphosphate/ Sodium Phosphate 133 ml DAILY PRN RECTAL; Start 12/18/16 at 17:10 Lab and Diagnostics Result Diagram: 12/19/16 0608 12/19/16 0608 X-Rays, CTs and MRIs Date of Service: 12/13/16 5188 PROCEDURE: X-RAY CHEST ONE VIEW, PORTABLE ([id number]) IMPRESSION: No acute cardiopulmonary disease Dictated by: Anthony Aldrich M.D. on 12/13/2016 at 19:48 Date of Service: 12/13/161999 PROCEDURE: CT TIBIA FIBULA RIGHT W/CONTRAST ([id number]) INDICATIONS: R leg abscess IMPRESSION: Possible rim-enhancing abscess in the anterior soft tissues at the mid tibial diaphyseal level, although unclear if this communicates with the skin surface. Please correlate with clinical exam findings Possible osteonecrosis/AVN involving the distal tibial diametaphysis. Please correlate clinically and with radiographs. Confirmation with ankle MRI could be performed as clinical warranted. Severe circumferential subcutaneous and soft tissue swelling in keeping with cellulitis. Dictated by: Anthony Aldrich M.D. on 12/13/2016 at 20:50 Assessment & Plan Patient is a 66 year old female with a history of lupus, neuropathy, COPD, TIA, CVA . Admitted for right lower leg cellulitis, abscess, and planned I&D today. Hospital Day 3. Cellulitis with abscess, present on admission. Acute. Improving -Surgical I&D yesterday went well, patient scheduled for plastics closure on -MRSA positive -Continue pain management with Dilaudid and oxycodone -Continue antibiotics per ID of clindamycin, meropenem, and daptomycin -Patient leukocytosis is improving on current antibiotic therapy -We will continue to monitor Hypocalcemia -Calcium was 6.9 -1 dose of calcium gluconate -Continue calcium carbonate 3 times a day -We will continue to monitor COPD - continue home dose Advair Neuropathy - continue home dose gabapentin - Vicodin held Lupus - continue to monitor GERD - patient not on any medication for this Allergic rhinitis - continue home cetirizine - Acetaminophen as needed for mild pain/fever/headache - Bowel regimen as needed - Antiemetic as needed DVT: anticoagulation held due to I&D in am, SCD not appropriate due to lesion in lower extremity GI: not indicated CODE: DNR/DNI Disposition: Patient's surgery went well yesterday. Patient is currently scheduled for plastics closure on . Patient currently states that she does not want to be discharged to [facility] but wants to be discharged home. Case management is working with the patient as she may not be discharged to [facility] but may be discharged home hopefully with home health. VTE Mechanical Devices: Intermittant Pneumatic CD Resuscitation Status: DNR/DNI:Do Not Resuscitate/Intubate Time spent Greater than 35 minutes Mariza Collins DO Dec 19, 2016 14:39
--- NOTE | 2016-12-19 15:07 | PCM.CONSUR ---
Subjective Date of Service: Dec 19, 2016 History of Present Illness This is a patient with a right leg wound. For detail history, please refer to her history and physical. I was contacted by Dr. Bauer on 12/18/2016 to evaluate the patient for coverage options. In short, she developed an abscess on her right leg, status post incision and drainage on 12/14/16. She underwent repeat irrigation and debridement with partial wound closure on 12/16/16 that was complicated by additional marginal skin necrosis. She underwent a repeat debridement on 12/19/16. She currently has VAC dressing on. The wound size is reportedly 5 cm x 15 cm. Her initial culture grew mixed penny including enterobactor, staph aureus and corynebacterium. She is currently on Ertapenem. Reason for Consultation Right leg wound Allergy Allergies: Coded Allergies: No Known Allergies (Verified Allergy, Unknown, 12/13/16) Uncoded Allergies: HAYFEVER (Allergy, Unknown, 06/11/16) Medications Hypertension Medication: No Home Meds Incl Beta Blockers: No ([Loratadine]) 10 MG TABLET 10 MG PO DAILY Prescribed by: ALBERT GUERRA DO ([Senna/Docusate Sodium]) 1 TABLET TABLET 1 TABLET PO BID Prescribed by: ALBERT GUERRA DO Albuterol HFA (Proair HFA) 8.5 Gm Hfa.aer.ad 2 PUFFS INH Q4H PRN PRN For Shortness of Breath (Reported) Last Taken: Unknown Dose on Unknown Date & Time Aspirin Chew (Aspirin Chew) 81 Mg Chew 81 MG PO DAILY (Reported) Fluticasone Propionate (Flonase Allergy Relief) 50 Mcg/Actuation Cla[place].susp 1 SPRAY NASAL QID (Reported) Last Taken: Unknown Dose on Unknown Date & Time Furosemide (Furosemide) 20 Mg Tab 20 MG PO BID (Reported) Last Taken: Unknown Dose on Unknown Date & Time Gabapentin (Gabapentin) 400 Mg Capsule 400 MG PO QID (Reported) Last Taken: Unknown Dose on Unknown Date & Time Gabapentin (Neurontin) 400 Mg Capsule 400 MG PO QID Prescribed by: ALBERT GUERRA DO Hydrocodone-Acetaminophen 10-325 mg (Hydrocodone-Acetaminophen 10-325 mg) 1 Each Tablet 1 TAB PO Q4H PRN PRN For Pain (Reported) Last Taken: Unknown Dose on Unknown Date & Time Hydrocodone-Acetaminophen 5- 325 mg (Hydrocodone-Acetaminophen 5-325 mg) 1 Each Tablet 1-2 TABLET PO Q4H PRN PRN For Moderate Pain Prescribed by: ALBERT GUERRA DO Multivitamin (Multivitamins) 1 Each Capsule 1 EACH PO DAILY (Reported) Last Taken: Unknown Dose on Unknown Date & Time Oxycodone ER (Oxycontin) 10 Mg Tab.er.12h 10 MG PO BID Prescribed by: ALBERT GUERRA DO Sennosides (Senna) 8.6 Mg Tablet 17.2 MG PO BID PRN PRN For Constipation Prescribed by: ALBERT GUERRA DO diphenhydrAMINE HCl (Benadryl) 25 Mg Capsule 25 MG PO Q4H PRN PRN For Itching Prescribed by: ALBERT GUERRA DO oxyCODONE (oxyCODONE) 5 Mg Tablet 5 MG PO Q4H PRN PRN For Moderate Pain Prescribed by: ALBERT GUERRA, Discontinued Medications Albuterol-Expunged Drug, Do Not Renew! (Albuterol-Expunged Drug, Do Not Renew!) 200 Puff/8.5 Gm Hfa.aer.ad 200 PUFF IH Q4 PRN PRN (Reported) Cetirizine-Expunged Drug, Do Not Renew! (Cetirizine-Expunged Drug, Do Not Renew! ) 10 Mg Tablet 10 MG PO DAILY (Reported) Cholecalciferol-Expunged Drug, Do Not Renew! (Vitamin D3-Expunged Drug, Do Not Renew!) 1,000 Unit Tab.chew 1,000 UNIT PO DAILY (Reported) Docusate Sod-Expunged Drug, Do Not Renew! (Docusate Sod-Expunged Drug, Do Not Renew!) 250 Mg Cap 250 MG PO HS (Reported) Fluticasone-Expunged Drug, Do Not Renew! (Flonase-Expunged Drug, Do Not Renew!) 120 Sprays Aero 120 SPRAYS NA PM PRN PRN (Reported) Folic Acid-Expunged Drug, Do Not Renew! (Folic Acid-Expunged Drug, Do Not Renew! ) 1 Mg Tablet 1 MG PO DAILY (Reported) Folic Acid/Multivits-Min/Lut (Multi-Vitamin Gummies) 1 Each Tab.chew 1 EACH PO DAILY (Reported) Gabapentin-Expunged Drug, Do Not Renew! (Neurontin-Expunged Drug, Do Not Renew! ) 400 Mg Capsule 400 MG PO QID (Reported) HYDROcodone/APAP-Expunged Drug, Do Not Renew! (Vicodin 10/325-Expunged Drug, Do Not Renew!) 1 Tab Tablet 1 TAB PO QID PRN PRN (Reported) Hydrocod/APAP-Expunged, Do Not Renew! (VICODIN 7.5/325-Expunged Drug, Do Not Renew) 1 Ea Tablet 1 EA PO Q4-6H PRN PRN (Reported) Ipratropium-Expunged Drug, Do Not Renew! (Ipratropium-Expunged Drug, Do Not Renew!) 345 [place]on/30 Ml [place] 2 SPR NA TID (Reported) Loperamide-Expunged Drug, Do Not Renew! (Imodium-Expunged Drug, Do Not Renew!) 2 Mg Tablet 2 MG PO PRN (Reported) Ondansetron ODT 8 MGTab (Zofran ODT 8 MG Tab) 8 Mg Tab.rapdis 8 MG SL/PO Q4 PRN PRN (Reported) 8 MG Phenylephrine Hcl (Nasal Cla[place]on) 30 Ml [place] 1 SPRAY NS TID PRN PRN (Reported) Sennosides-Expunged Drug, Do Not Renew! (Senna Soft-Expunged Drug, Do Not Renew! ) 15 Mg Tablet 15 MG PO HS (Reported) Past Surgical History Surgeries: Yes Patient/Family Past Surgical: Denies:: Anesthesia Reactions, Malignant Hyperthermia Social History Hx Alcohol Use: No Hx Substance Use: No Hx Tobacco Use: No PMH HEENT History History of ENT Problems?: No HEENT History: Positive for:: Sinus Problem Denies:: Abnormal Airway Difficult Intubation Dysphagia Hearing Problem Cardiovascular History History of Heart Problems?: No Cardiovascular History: Denies:: Atrial Fibrillation Cardiac Surgery Chest Pain Congestive Heart Failure Heart Murmur Hypertension Irregular Heartbeat Pacemaker Thrombophlebitis Valvular Heart Disease Respiratory History of Respiratory Problem: Yes Respiratory History: Positive for:: COPD (patient states she does does not have copd but it is noted in chart history) Dyspnea Pneumonia (X 2 WHEN IN LATE 20'S) Denies:: Asthma Chest Surgery Cough Emphysema Hemoptysis Tuberculosis Neurological History Hx Neurologic Problems?: No Neurological History: Positive for:: CVA (1989 SLIGHT CVA) Denies:: Dementia Dizziness Headaches Parkinson's Disease Seizures Gastrointestinal History HX of GI Problems?: No Gastrointestinal History: Positive for:: Cirrhosis Denies:: Diverticulitis Gastrointestinal Bleeding Heartburn Hepatitis Hiatal Hernia Rectal Bleeding Genitourinary History Hx of Gu Problems?: No Female/Male History Reproductive History Female: Denies: Currently ? Musculoskeletal History Hx Musculoskeletal Problems?: Yes Musculoskeletal History: Positive for:: Back Injury (back becky) Denies:: Joint Replacement Psycho Social History Hx of Psycho/Social Problems?: No Psycho Social History: Denies:: Anxiety Bipolar Disorder Hx Depression Suicide Attempt Other History Hx Any Other Health Problems?: No Other History: Positive for:: Hospitalization Denies:: Cancer Endocrine Disease Thyroid Disease Diabetes: NoBedside Blood Glucose: 87 Social History Hx Alcohol Use: NoHx Substance Use: NoHx Tobacco Use: No Smoking Status: Smoker Current Status UNK Living Arrangement: Alone (wheelchair bound, local resident) Objective Exam Vital Signs & I/O Vital Sign- Last 8 Hours Date Time Temp Pulse Resp B/P Pulse Ox O2 Delivery O2 Flow Rate FiO2 12/19/16 11:45 92 Nasal Cannula 5.00 12/19/16 10:06 Supplement Oxygen 12/19/16 09:25 36.8 103 24 100/65 78 Room Air Intake and Output- Last 8 Hour 12/19/16 Cumulative From/Thru 07:00 12/13/16 16:15 - 12/19/16 06:40 Intake Total 872 ml 30651 ml Output Total 650 ml 3812 ml Balance 222 ml 30312 ml Intake Oral 2020 ml IV Total 872 ml 46492 ml TPN/PPN 770 ml Output Urine Total 650 ml 3800 ml Urine/Stool Mix 2 ml Estimated Blood Loss 10 ml # Voids 12 # Bowel Movements 4 Lab & Micro Results Laboratory Tests Test 12/19/16 06:08 White Blood Count 7.6th/mm3 (3.8-10.1) Red Blood Count 2.59mil/mm3 (3.90-5.20) Hemoglobin 7.8g/dL (12.0-15.6) Hematocrit 24.0% (35.0-46.0) Mean Corpuscular Volume 92.7fL (81-100) Mean Corpuscular Hemoglobin 30.1pg (27.0-35.0) Mean Corpuscular Hemoglobin Concent 32.5% (32.0-37.0) Red Cell Distribution Width 13.9% (12.3-15.4) Platelet Count 286bil/L (150-400) Neutrophils (%) (Auto) 67.7% (40-74) Lymphocytes (%) (Auto) 16.1% (14-46) Monocytes (%) (Auto) 11.5% (4-12) Eosinophils (%) (Auto) 3.7% (0-5) Basophils (%) (Auto) 0.3% (0-3) Sodium Level 145mEq/L (134-144) Potassium Level 4.5mEq/L (3.5-5.2) Chloride Level 111mEq/L (97-108) Carbon Dioxide Level 21mmol/L (18-29) Blood Urea Nitrogen 9mg/dL (8-27) Creatinine 0.53mg/dL (0.57-1.00) Estimat Glomerular Filtration Rate 166mL/min (>59) Glucose Level 84mg/dL (60-99) Calcium Level 7.6mg/dL (8.5-10.1) Total Bilirubin 0.2mg/dL (0.0-1.2) Aspartate Amino Transf (AST/SGOT) 21U/L (0-50) Alanine Aminotransferase (ALT/SGPT) 7U/L (0-32) Alkaline Phosphatase 86U/L (25-165) Total Protein 4.7g/dL (6.4-8.4) Albumin 1.7g/dL (3.4-5.0) Microbiology 12/13/16 Blood Culture - Final, Complete NO GROWTH AFTER 5 DAYS 12/13/16 MRSA Surveillance Culture - Preliminary, Resulted Screen Positive For Mrsa 12/13/16 Urine Culture - Final, Complete Mixed Urogenital Penny 12/14/16 Gram Stain - Final, Resulted 12/14/16 Culture & Sensitivity - Preliminary, Resulted Beta Streptococcus Group B 12/14/16 Anaerobic Culture - Preliminary, Resulted 12/14/16 Fungal Culture - Preliminary, Resulted No fungus isolated to date. Result Diagram: 12/19/16 0608 12/19/16 0608 Review of Systems: Constitutional: Negative, except as otherwise mentioned in the history above. Ophthalmologic: Negative, except as otherwise mentioned in the history above. Cardiovascular: Negative, except as otherwise mentioned in the history above. Respiratory: Negative, except as otherwise mentioned in the history above. Gastrointestinal: Negative, except as otherwise mentioned in the history above. Genitourinary: Negative, except as otherwise mentioned in the history above. Musculoskeletal: Negative, except as otherwise mentioned in the history above. Neurological: Negative, except as otherwise mentioned in the history above. Psychiatric: Negative, except as otherwise mentioned in the history above. Hematologic/Lymphatic: Negative, except as otherwise mentioned in the history above. Allergic/Immunologic: Negative, except as otherwise mentioned in the history above. H&P Surgical Exam Exam General: Alert, Oriented X3, Cooperative, No Acute Distress Musculoskeletal: On examination, she has a VAC dressing in place. There edema about her right lower extremity. Assessment & Plan Assessment Right leg wound. VTE Mechanical Devices: Intermittant Pneumatic CD Plan: I will take her to the OR on 12/21/16 for examination of her right leg wound under anesthesia, possible debridement, possible Integra placement. I will not attempt any partial closure as previous attempts led to more skin necrosis. The ultimate goal would be to apply a layer of Integra, allow it to take under negative pressure, followed by delayed split thickness skin grafting. I discussed my plan with the patient who agrees. Questions were answered. Resuscitation Status: DNR/DNI:Do Not Resuscitate/Intubate Vic Alvarez MD Dec 19, 2016 14:56
--- NOTE | 2016-12-19 15:31 | NUR ---
Social Work Note Continued Discharge Planning: D/A: The Pt is a 66 y/o female that was admitted for right leg cellulitis. SW met with the Pt at bedside to review DONTAE and discuss the recommended transfer to [facility] vs home with son, FORTINO caregiver, and HH providing support. The Pt continues to decline the need to transfer to [facility] and is also declining HH. Ortho following, recommending discharge likely after MD Alvarez from Plastic Surgery consults for closure of wound and authorization of home wound VAC. ID also following and will see the Pt again on 12/21/2016. armor reconnaissance specialist informed SW that the Pt will likely have plastic surgery for her wound on 12/20/2016. SW to continue to follow for additional needs and support. P: Pt to be discharged when medically stable. Pt continuing to decline need for transfer to [facility] or HH services. Ortho and ID following. Ortho recommending discharge after Plastic Surgery consult. Possible surgery for 12/20/2016. SW will continue to follow for additional needs and support. JAMA Cano Head Of Marketing JAMA Barillas
--- NOTE | 2016-12-19 18:13 | NUR ---
Respiratory Pt has been taking off O2 throughout shift. Refuses to keep O2 on at all times. NC is continually placed back on the pt and O2 increases to low to mid nineties. Will continue to monitor pt and encourage O2 use. Addendum: 12/19/16 at 1821 by JAYLIN REYNOLDS RN Pt put on CPOx so that it would be apparent when the pt takes off her NC.
--- NOTE | 2016-12-19 21:54 | PCM.PNORTH ---
Subjective Date of Service: Dec 19, 2016 Visit Information: Reason for Visit Right Leg Cellulitis Surgery/Surgery Date Post-Op Day # Date of Admission: Dec 13, 2016 at 20:39 Hospital Day # Subjective Pt doing well today. Pain is controlled with meds. Dr Alvarez saw her and discussed taking her back to surgery [facility] for possible staged closure with first using integra followed by STSG. Postop General: No Complaints, No Shortness of Breath, No Chest Pain, Good Appetite Pain Management: PO Objective Exam Objective Gen - alert, NAD Ext - Vac intact left lower extremity Intact seal +lower extremity edema +DF/PF ankle Vital Signs and I/O Vital Sign - Last Date Time Temp Pulse Resp B/P Pulse Ox O2 Delivery O2 Flow Rate FiO2 12/19/16 20:00 91/46 12/19/16 19:41 Supplement Oxygen 12/19/16 19:41 36.9 100 16 92 5.00 Intake and Output 12/18/16 12/18/16 12/19/16 Cumulative From/Thru 15:00 23:00 07:00 12/13/16 16:15 - 12/19/16 06:40 Intake Total 1602 ml 872 ml 94978 ml Output Total 650 ml 3812 ml Balance 1602 ml 222 ml 16760 ml Intake Oral 2020 ml IV Total 1602 ml 872 ml 63224 ml TPN/PPN 770 ml Output Urine Total 650 ml 3800 ml Urine/Stool Mix 2 ml Estimated Blood Loss 10 ml # Voids 3 12 # Bowel Movements 4 Lab & Micro Results Laboratory Tests Test 12/19/16 06:08 White Blood Count 7.6th/mm3 (3.8-10.1) Red Blood Count 2.59mil/mm3 (3.90-5.20) Hemoglobin 7.8g/dL (12.0-15.6) Hematocrit 24.0% (35.0-46.0) Mean Corpuscular Volume 92.7fL (81-100) Mean Corpuscular Hemoglobin 30.1pg (27.0-35.0) Mean Corpuscular Hemoglobin Concent 32.5% (32.0-37.0) Red Cell Distribution Width 13.9% (12.3-15.4) Platelet Count 286bil/L (150-400) Neutrophils (%) (Auto) 67.7% (40-74) Lymphocytes (%) (Auto) 16.1% (14-46) Monocytes (%) (Auto) 11.5% (4-12) Eosinophils (%) (Auto) 3.7% (0-5) Basophils (%) (Auto) 0.3% (0-3) Sodium Level 145mEq/L (134-144) Potassium Level 4.5mEq/L (3.5-5.2) Chloride Level 111mEq/L (97-108) Carbon Dioxide Level 21mmol/L (18-29) Blood Urea Nitrogen 9mg/dL (8-27) Creatinine 0.53mg/dL (0.57-1.00) Estimat Glomerular Filtration Rate 166mL/min (>59) Glucose Level 84mg/dL (60-99) Calcium Level 7.6mg/dL (8.5-10.1) Total Bilirubin 0.2mg/dL (0.0-1.2) Aspartate Amino Transf (AST/SGOT) 21U/L (0-50) Alanine Aminotransferase (ALT/SGPT) 7U/L (0-32) Alkaline Phosphatase 86U/L (25-165) Total Protein 4.7g/dL (6.4-8.4) Albumin 1.7g/dL (3.4-5.0) Microbiology 12/13/16 Blood Culture - Final, Complete NO GROWTH AFTER 5 DAYS 12/13/16 MRSA Surveillance Culture - Preliminary, Resulted Screen Positive For Mrsa 12/13/16 Urine Culture - Final, Complete Mixed Urogenital Rolanda 12/14/16 Gram Stain - Final, Resulted 12/14/16 Culture & Sensitivity - Preliminary, Resulted Beta Streptococcus Group B 12/14/16 Anaerobic Culture - Preliminary, Resulted 12/14/16 Fungal Culture - Preliminary, Resulted No fungus isolated to date. Result Diagram: 12/19/16 0608 12/19/16 06 SURGICAL WOUND : Drain Location Body Site: RANGEL Wound Drainage Type: Wound Vac Activity: Activity per PT, Ambulate with PT (nonweightbearing at this time secondary to wound VAC and pending return to the OR for repeat I&D and likely wound closure. Patient may participate in bed mobility and upper extremity mobility as able.) Catheters: None Assessment & Plan Impression s/p multiple right leg I/D with application wound vac Problems: Plan Dr Alvarez has graciously accepted patient to perform wound coverage possibly this [facility] will be available if any further needs arise Resuscitation Status: DNR/DNI:Do Not Resuscitate/Intubate Odilon Bauer DO Dec 19, 2016 21:54
[2016-12-20] MEDS: Sodium Chloride LOK Flush 10 mL Syringe IV SCH ×6 (00:30→15:42)
[2016-12-20 00:31] VITALS: BP 108/66; PULSE 79; RESP 16; O2SAT 94
[2016-12-20] MEDS: 0.9% Sodium Chloride 1,000 ML IV SCH ×3 (03:34→18:34)
--- NOTE | 2016-12-20 04:30 | NUR ---
RESPIRATORY Patient has managed to keep O2 on more consistently over night. Has been somewhat sleepy, arouses to voice, but quickly returns to sleep when not being stimulated. Reported pain at beginning of shift, requested pain medications. Given oxycontin but held extra breakthrough meds she was requesting due to how easily she was falling back to sleep. Patient has rested rather comfortably all night. COLLATERAL CLERK on to alarm when patient removes her O2.
[2016-12-20 05:00] VITALS: BP 98/63; PULSE 90; RESP 16; O2SAT 95
[2016-12-20] MEDS: DAPTOmycin Inj 500 MG in 0.9% Sodium Chloride 50 ML IV SCH (08:06)
[2016-12-20] MEDS: Fluticasone-Salmeterol 100-50 Inhaler INHALATION SCH ×2 (08:06→20:45)
[2016-12-20] MEDS: oxyCODONE ER 10 mg ER12 Tablet PO SCH ×2 (08:10→20:44)
[2016-12-20] MEDS: Senna-Docusate 8.6-50 mg Tablet PO SCH ×4 (08:11→20:30)
[2016-12-20 08:21] LABS: Mean Corpuscular Hemoglobin 29.4 pg (27.0-35.0); Mean Corpuscular Volume 94.8 fL (81-100)
[2016-12-20] MEDS: Ertapenem Inj 1,000 MG in 0.9% Sodium Chloride 50 ML IV SCH (08:41)
--- NOTE | 2016-12-20 09:46 | NUR ---
HOME WOUND VAC APPROVED FORMERLY [facility] has approved a wound vac to be placed when patient is ready to d/c home. The home vacs are kept at the [facility] and Teja Maddox will need to be contacted on Vocera to help with placement when patient is ready for discharge.
--- NOTE | 2016-12-20 11:16 | NUR ---
Social Work: Continued d/c planning Data: Pt is on day 7 of hospitalization. EMR reviewed, pt discussed in rounds. MD states pt was agreeable to HH with her. EDITOR BOOK followed up with pt regarding HH. Pt was reluctant but agreed to HH. HH choice list given. No preference stated. EDITOR BOOK referred to rotating calendar and referred pt to Kylie BUCKNER, RN/PT, spoke with Joseph. Access given, F2F in EDITOR BOOK folder. EDITOR BOOK will continue to follow. Assessment: Pt who is independent at baseline. Plan: Pt will d/c home via POV when medically stable with Kylie BUCKNER, RN/PT. EDITOR BOOK will continue to follow. JAMA Cardenas
[2016-12-20 14:02] VITALS: BP 105/68; PULSE 90; RESP 18; O2SAT 95
--- NOTE | 2016-12-20 14:40 | PCM.PNMED ---
Subjective Date of Service Dec 20, 2016 Subjective Patient was examined at bedside today. Patient denies any chest pain, shortness of breath, nausea, vomiting, diarrhea. Patient states that her pain is well controlled. Exam Vital Signs Vital Sign - Last Date Time Temp Pulse Resp B/P Pulse Ox O2 Delivery O2 Flow Rate FiO2 12/20/16 14:02 36.6 90 18 105/68 95 Nasal Cannula 2.50 Intake and Output 12/19/16 12/19/16 12/20/16 Cumulative From/Thru 15:00 23:00 07:00 12/13/16 16:15 - 12/20/16 06:19 Intake Total 977 ml 122 ml 83802 ml Output Total 3812 ml Balance 977 ml 122 ml 30270 ml Intake Oral 777 ml 122 ml 2919 ml IV Total 200 ml 24236 ml TPN/PPN 770 ml Output Urine Total 3800 ml Urine/Stool Mix 2 ml Estimated Blood Loss 10 ml # Voids 3 2 17 # Bowel Movements 2 1 7 Exam Physical Exam: GEN: Patient was awake, alert, responding appropriately to questions HEENT: PERRLA, EOMI, Neck soft supple, trachea midline, nomocephalic/atraumatic CV: +S1/S2, RRR, no murmurs auscultated Respiratory: CTAB, no wheezes, rales, rhonchi GI: +bowel sounds x4, soft, compressible, non TTP EXT: no c/c/right lower extremity wound VAC in place. Skin: Chronically leathery Neuro: CN II-XII grossly intact Psych: mood and affect were appropriate IVs and Medications Medications Reviewed: Medications were reviewed in detail Medications Current Medications Albuterol 2.5 mg 2.5 mg ONCE PRN NEB; Start 12/18/16 at 16:00; Stop 12/18/16 at 17:54; Status DC Lactated Ringer's 1,000 ml @ 120 mls/hr Q8H20M IV Last administered on t 16:04; Start 12/18/16 at 16:00; Stop 12/18/16 at 17:54; Status DC Ephedrine Systolic SBP below 90 ... Q2MIN PRN IVPUSH; Start 12/18/16 at 16:00; Stop 12/18/16 at 17:54; Status DC Phenylephrine HCl Systolic BP below 90 ... ONCE PRN IVPUSH; Start 12/18/16 at 16:00; Stop 12/18/16 at 17:54; Status DC Lactated Ringer's 500 ml @ 0 mls/hr Q0M PRN IV; Start 12/18/16 at 16:00; Stop at 17:54; Status DC Labetalol HCl 5 mg Q10MIN PRN IV; Start 12/18/16 at 16:00; Stop 12/18/16 at 17: 54; Status DC Hydralazine HCl 5 mg Q10MIN PRN IVPUSH; Start 12/18/16 at 16:00; Stop 12/18/16 at 17:54; Status DC Atropine Sulfate 0.4 mg PRN PRN IVPUSH; Start 12/18/16 at 16:00; Stop 12/18/16 at 17:54; Status DC Fentanyl Citrate 25-50 mcg IV every 5 min p... Q5MIN PRN IVPUSH; Start at 16:00; Stop 12/18/16 at 17:54; Status DC Morphine Sulfate 1-4 mg IV every 5 min p... Q5MIN PRN IVPUSH; Start 12/18/16 at 16:00; Stop 12/18/16 at 17:54; Status DC Hydromorphone HCl 0.2-1 mg IV every 5 min p... Q5MIN PRN IVPUSH; Start at 16:00; Stop 12/18/16 at 17:54; Status DC Meperidine HCl 12.5-25 mg IV every 5 min p... Q5MIN PRN IVPUSH; Start 12/18/16 at 16:00; Stop 12/18/16 at 17:54; Status DC Diphenhydramine HCl 12.5-50 mg IV prn itchi... Q30MIN PRN IVPUSH; Start at 16:00; Stop 12/18/16 at 17:54; Status DC Dexamethasone Sodium Phosphate 4 mg ONCE PRN IVPUSH; Start 12/18/16 at 16:00; Stop 12/18/16 at 17:54; Status DC Metoclopramide HCl 10 mg Q10MIN PRN IVPUSH; Start 12/18/16 at 16:00; Stop 12/18 at 17:54; Status DC Ondansetron HCl 4-8 mg IV every 4 hours ... Q4H PRN IVPUSH; Start 12/18/16 at 16:00; Stop 12/18/16 at 17:54; Status DC Midazolam HCl 0.5-1 mg IV every 5 min p... Q5MIN PRN IVPUSH; Start 12/18/16 at 16:00; Stop 12/18/16 at 17:54; Status DC Senna 1 tablet BID PO; Start 12/18/16 at 20:30 Docusate Sodium 100 mg BID PO; Start 12/18/16 at 20:30 Magnesium Hydroxide 10 ml HS PRN PO; Start 12/18/16 at 17:10 Bisacodyl 10 mg DAILY PRN RECTAL; Start 12/18/16 at 17:10 Polyethylene Glycol 17 gm DAILY PRN PO; Start 12/18/16 at 17:10 Sodium Biphosphate/ Sodium Phosphate 133 ml DAILY PRN RECTAL; Start 12/18/16 at 17:10 Lab and Diagnostics Result Diagram: 12/20/16 0803 12/20/16 0803 X-Rays, CTs and MRIs Date of Service: 12/13/16 6888 PROCEDURE: X-RAY CHEST ONE VIEW, PORTABLE ([id number]) IMPRESSION: No acute cardiopulmonary disease Dictated by: Anthony Aldrich M.D. on 12/13/2016 at 19:48 Date of Service: 12/13/161999 PROCEDURE: CT TIBIA FIBULA RIGHT W/CONTRAST ([id number]) INDICATIONS: R leg abscess IMPRESSION: Possible rim-enhancing abscess in the anterior soft tissues at the mid tibial diaphyseal level, although unclear if this communicates with the skin surface. Please correlate with clinical exam findings Possible osteonecrosis/AVN involving the distal tibial diametaphysis. Please correlate clinically and with radiographs. Confirmation with ankle MRI could be performed as clinical warranted. Severe circumferential subcutaneous and soft tissue swelling in keeping with cellulitis. Dictated by: Anthony Aldrich M.D. on 12/13/2016 at 20:50 Assessment & Plan Patient is a 66 year old female with a history of lupus, neuropathy, COPD, TIA, CVA . Admitted for right lower leg cellulitis, abscess, and planned I&D today. Hospital Day 3. Cellulitis with abscess, present on admission. Acute. Improving -Surgical I&D yesterday went well, patient scheduled for plastics closure on -MRSA positive -Continue pain management with Dilaudid and oxycodone -Continue antibiotics per ID of clindamycin, meropenem, and daptomycin -Patient leukocytosis is improving on current antibiotic therapy -We will continue to monitor Hypocalcemia (resolving) -Calcium was 6.9-->7.6-->7.8 -1 dose of calcium gluconate (12/18/16) responded well -Continue calcium carbonate 3 times a day -We will continue to monitor COPD - continue home dose Advair Neuropathy - continue home dose gabapentin - Vicodin held Lupus - continue to monitor GERD - patient not on any medication for this Allergic rhinitis - continue home cetirizine - Acetaminophen as needed for mild pain/fever/headache - Bowel regimen as needed - Antiemetic as needed DVT: anticoagulation held due to I&D in am, SCD not appropriate due to lesion in lower extremity GI: not indicated CODE: DNR/DNI Disposition: Patient's surgery went well. Patient is currently scheduled for plastics closure on . Patient is currently progressing well and anticipate discharge 1-2 days post plastics closure to her wound barring any complications. Patient will be discharged home with her son and home health. VTE Mechanical Devices: Intermittant Pneumatic CD Resuscitation Status: DNR/DNI:Do Not Resuscitate/Intubate Mariza Collins DO Dec 20, 2016 14:40
--- NOTE | 2016-12-20 16:05 | NUR ---
Care taken over This nurse took over care for this pt at 1500. A&Ox3 when conversing, slightly drowsy when left alone. On 2L O2 at mid nineties per CPOx. Pt's brief is dry. Pt c/o right sided hip/rib pain and was given oxycodone. Dr. Alvarez paged re: surgery tomorrow. Pt is not to eat past 0400 on 12/21/15. No other preop orders. Bed locked in low position and call light within reach. Will continue to monitor.
--- NOTE | 2016-12-20 17:57 | NUR ---
Headache Pt c/o RAHMAN unrelieved with oxycodone. Hospitalist paged and orders received for APAP.
--- NOTE | 2016-12-20 18:37 | NUR ---
Refusal of care Pt's brief is currently wet. Pt is aware but did not let this nurse know. Refuses to be changed at this time.
[2016-12-20 20:36] VITALS: BP 95/59; PULSE 81; RESP 20; O2SAT 92
[2016-12-21] VITALS (12 sets, daily range): BP systolic 101–118; BP diastolic 50–76; PULSE 66–95; RESP 11–20; O2SAT 91–95
[2016-12-21] MEDS: Sodium Chloride LOK Flush 10 mL Syringe IV SCH ×5 (00:30→16:30)
--- NOTE | 2016-12-21 04:52 | NUR ---
Plan of care/Pain Pt agreeable to Q2 turns and changing of briefs this shift. Pt c/o pain in her leg 06/28 x1 this shift. Scheduled OxyContin given and effective. No further complaints this shift. Pt has been NPO since midnight for procedure this AM. VSS.
[2016-12-21] MEDS: 0.9% Sodium Chloride 1,000 ML IV SCH ×2 (07:30→22:21)
[2016-12-21] MEDS: Ertapenem Inj 1,000 MG in 0.9% Sodium Chloride 50 ML IV SCH (07:31)
[2016-12-21 07:57] LABS: Mean Corpuscular Hemoglobin 30.2 pg (27.0-35.0); Mean Corpuscular Volume 95.1 fL (81-100)
[2016-12-21] MEDS: Fluticasone-Salmeterol 100-50 Inhaler INHALATION SCH ×2 (08:22→21:13)
[2016-12-21] MEDS: oxyCODONE ER 10 mg ER12 Tablet PO SCH ×2 (08:24→21:12)
[2016-12-21] MEDS: Senna-Docusate 8.6-50 mg Tablet PO SCH ×4 (08:28→21:15)
[2016-12-21] MEDS: DAPTOmycin Inj 500 MG in 0.9% Sodium Chloride 50 ML IV SCH (09:23)
--- NOTE | 2016-12-21 12:14 | NUR ---
patient is alert and oriented X3. able to make needs known. Vital signs WNL. PRN pain medication given for pain with effective results. patient transferred to OR approx [phone] for right leg plastics closure. Dr Orlando aware that patient is MRSA negative per microbiology. Dr orlando in to see patient. no continuous contact precautions.
--- NOTE | 2016-12-21 12:20 | PCM.PNMED ---
Subjective Date of Service Dec 21, 2016 Subjective Patient was examined at bedside today. Patient denies any chest pain, shortness of breath, nausea, vomiting, diarrhea. Patient states that her lower extremity pain is well controlled Exam Vital Signs Vital Sign - Last Date Time Temp Pulse Resp B/P Pulse Ox O2 Delivery O2 Flow Rate FiO2 12/21/16 08:00 Supplement Oxygen 12/21/16 07:39 36.6 80 14 108/65 93 2.00 Intake and Output 12/20/16 12/20/16 12/21/16 Cumulative From/Thru 15:00 23:00 07:00 12/13/16 16:15 - 12/21/16 05:10 Intake Total 1454 ml 643 ml 300 ml 93144 ml Output Total 3812 ml Balance 1454 ml 643 ml 300 ml 46957 ml Intake Oral 300 ml 3219 ml IV Total 1454 ml 643 ml 69580 ml TPN/PPN 770 ml Output Urine Total 3800 ml Urine/Stool Mix 2 ml Estimated Blood Loss 10 ml # Voids 2 19 # Bowel Movements 1 8 Exam Physical Exam: GEN: Patient was awake, alert, responding appropriately to questions HEENT: PERRLA, EOMI, Neck soft supple, trachea midline, nomocephalic/atraumatic CV: +S1/S2, RRR, no murmurs auscultated Respiratory: CTAB, no wheezes, rales, rhonchi GI: +bowel sounds x4, soft, compressible, non TTP EXT: no c/c right lower extremity wound VAC in place Skin: Leathery bilaterally Neuro: CN II-XII grossly intact Psych: mood and affect were appropriate IVs and Medications Medications Reviewed: Medications were reviewed in detail Medications Current Medications Acetaminophen 650 mg Q6H PRN PO Last administered on 12/20/16t 18:35; Admin Dose 650 MG; Start 12/20/16 at 18:25 Docusate Sodium 100 mg BID PRN PO; Start 12/21/16 at 11:20 Lab and Diagnostics Result Diagram: 12/21/16 0710 12/20/16 0803 X-Rays, CTs and MRIs Date of Service: 12/13/16 4861 PROCEDURE: X-RAY CHEST ONE VIEW, PORTABLE ([id number]) IMPRESSION: No acute cardiopulmonary disease Dictated by: Anthony Aldrich M.D. on 12/13/2016 at 19:48 Date of Service: 12/13/161999 PROCEDURE: CT TIBIA FIBULA RIGHT W/CONTRAST ([id number]) INDICATIONS: R leg abscess IMPRESSION: Possible rim-enhancing abscess in the anterior soft tissues at the mid tibial diaphyseal level, although unclear if this communicates with the skin surface. Please correlate with clinical exam findings Possible osteonecrosis/AVN involving the distal tibial diametaphysis. Please correlate clinically and with radiographs. Confirmation with ankle MRI could be performed as clinical warranted. Severe circumferential subcutaneous and soft tissue swelling in keeping with cellulitis. Dictated by: Anthony Aldrich M.D. on 12/13/2016 at 20:50 Assessment & Plan Patient is a 66 year old female with a history of lupus, neuropathy, COPD, TIA, CVA . Admitted for right lower leg cellulitis, abscess, and planned I&D today. Hospital Day 3. Cellulitis with abscess, present on admission. Acute. Improving -Surgical I&D yesterday went well, patient scheduled for plastics closure on -MRSA positive -Continue pain management with Dilaudid and oxycodone -Continue antibiotics per ID of clindamycin, meropenem, and daptomycin -Patient leukocytosis is improving on current antibiotic therapy -We will continue to monitor Hypocalcemia (resolving) -Calcium was 6.9-->7.6-->7.8--> pending for today -1 dose of calcium gluconate (12/18/16) responded well -Continue calcium carbonate 3 times a day -We will continue to monitor COPD - continue home dose Advair Neuropathy - continue home dose gabapentin - Vicodin held Lupus - continue to monitor GERD - patient not on any medication for this Allergic rhinitis - continue home cetirizine - Acetaminophen as needed for mild pain/fever/headache - Bowel regimen as needed - Antiemetic as needed DVT: anticoagulation held due to I&D in am, SCD not appropriate due to lesion in lower extremity GI: not indicated CODE: DNR/DNI Disposition: Patient is scheduled for closure of her wound on the right lower extremity today by plastics. At this point the patient has been responding well to the surgical procedures and barring any complications the patient will be able to go home and the next one to 2 days we will follow the recommendations by plastics. Patient will go home with home health. VTE Mechanical Devices: Intermittant Pneumatic CD Resuscitation Status: DNR/DNI:Do Not Resuscitate/Intubate Mariza Collins DO Dec 21, 2016 12:20
--- NOTE | 2016-12-21 12:30 | PROG NOTE ---
[address] [address] PROGRESS NOTE PATIENT: OSMAN WOLFE : 1950 MR#: [id number] ADMIT: 12/13/2016 JOB ID: [id number] DATE: 12/21/2016 INFECTIOUS DISEASE FOLLOWUP NOTE: REASON FOR FOLLOWUP: Extensive right lower extremity abscess. INTERVAL HISTORY: Overnight, the patient states she has been feeling "okay." No fevers, chills, or sweats. No cough, shortness of breath, chest pain, or diarrhea. Her right lower extremity has a larger wound VAC present over it, and she is scheduled for additional debridement today. She says there is very little pain in the right lower extremity. PHYSICAL EXAMINATION: Reveals an afebrile, comfortable woman. Temp 36.6, pulse 80, respiratory rate 14, blood pressure 108/65, saturating 93% on 2 L. Examination of the oral cavity is unremarkable including the teeth. Lungs quite clear. Abdomen soft and nontender. Right lower extremity is remarkable for the large wound VAC present over the mid tibia area. There is some minimal erythema around the area of the wound VAC and as noted, is scheduled for repeat debridement and possible plastic surgery work later today. LABORATORIES: Include white count 8200, which has completely normalized. Creatinine 0.48. LFT are normal. Urinalysis was essentially negative. The urine culture was mixed. The culture from the abscess, of course, yielded group B strep, enterobacter, Corynebacterium striatum and MSSA. The nasal MRSA swab was negative after originally being reported as positive but that proved to be an error. IMAGING: We have no new imaging of the leg. IMPRESSION: This patient has a truly amazing abscess involving the right lower extremity with at least four different pathogenic organisms isolated from the wound. How serious the corynebacterium infection remains unclear but it is reasonable to treat it along with the other organisms in this collection. Note that the corynebacterium did prove to be susceptible to daptomycin. RECOMMENDATIONS: 1. Will continue with our current somewhat complicated regimen which includes once a day daptomycin and once a day ertapenem for very broad coverage including anaerobes. 2. We await the results of today's additional surgery. 3. Will continue to follow this complex patient with you. 4. Note that the patient tells me she will likely be going home tomorrow. 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
[2016-12-21] MEDS ORDERED: Ondansetron 2 mg/mL 2 mL Inj IVPUSH PRN (12:50)
[2016-12-21] MEDS ORDERED: Dexamethasone 4 mg/mL Inj IVPUSH PRN (12:50)
[2016-12-21] MEDS ORDERED: EPHEDrine Sulfate 50 mg/mL Inj IVPUSH PRN (12:50)
[2016-12-21] MEDS ORDERED: Lactated Ringer's 1,000 ML IV SCH (12:50)
[2016-12-21] MEDS ORDERED: fentaNYL-PF 50 mCg/mL 2 mL Inj IVPUSH PRN (12:50)
[2016-12-21] MEDS ORDERED: Lactated Ringer's 500 ML IV PRN (12:50)
[2016-12-21] MEDS ORDERED: hydrALAZINE 20 mg/mL Inj IVPUSH PRN (12:50)
[2016-12-21] MEDS ORDERED: MetoCLOpramide 5 mg/mL 2 mL Inj IVPUSH PRN (12:50)
[2016-12-21] MEDS ORDERED: Atropine 0.4 mg/mL Inj IVPUSH PRN (12:50)
[2016-12-21] MEDS ORDERED: HYDROmorphone 1 mg/mL Inj IVPUSH PRN (12:50)
[2016-12-21] MEDS ORDERED: Phenylephrine 10,000 mCg/mL Inj IVPUSH PRN (12:50)
--- NOTE | 2016-12-21 12:50 | PCM.HPANE ---
Patient Data Surgeon Admitting Provider:Everardo Javier MD Attending Provider:Everardo Javier MD Primary Care Physician:Ellie Rabago Other Provider:James Teran Anesthesia Reason for Visit Right Leg Cellulitis Ht/WT & BMI Height (Feet): 5 Height (Inches): 9.00 Weight (Kilograms): 77.500 Body Mass Index 26.64 Allergies Coded Allergies: No Known Allergies (Verified Allergy, Unknown, 12/13/16) Uncoded Allergies: HAYFEVER (Allergy, Unknown, 06/11/16) Past Anesthesia History Anesthesia History: Denies:: Abnormal Airway, Anesthesia Reactions, Difficult Intubation, Fam Anesthesia Reaction, Fam Malignant Hypertherm, Malignant Hyperthermia Diabetes History Hx Diabetes?: No Current Bedside Blood Glucose: 87 MRSA MRSA: No Medications Hypertension Medication: No Home Meds Incl Beta Karly: No Active Scripts Sennosides (Senna)8.6 Mg Upgyfi85.2 Mg PO BID PRN For Constipation #30 TABLET Prov:ALBERT GUERRA DO 12/16/16 [Senna/Docusate Sodium] (Senokot S)1 TABLET TABLET No Conflict Check1 Tablet PO BID #30 Prov:ALBERT GUERRA DO 12/16/16 Oxycodone ER (Oxycontin)10 Mg Tab.er.12h10 Mg PO BID #30 Prov:ALBERT GUERRA DO 12/16/16 oxyCODONE 5 Mg Tablet5 Mg PO Q4H PRN For Moderate Pain #30 TABLET Prov:ALEBRT GUERRA DO 12/16/16 Hydrocodone-Acetaminophen 5-325 mg 1 Each Tablet1-2 Tablet PO Q4H PRN For Moderate Pain #30 TABLET Prov:ALBERT GUERRA DO 12/16/16 Gabapentin (Neurontin)400 Mg Ydrcfdj119 Mg PO QID #30 CAPSULE Prov:ALBERT GUERRA DO 12/16/16 [Loratadine] (Claritin)10 MG TABLET No Conflict Check10 Mg PO DAILY #30 Prov:ALBERT GUERRA DO 12/16/16 diphenhydrAMINE HCl (Benadryl)25 Mg Yhgpixj95 Mg PO Q4H PRN For Itching #30 CAPSULE Prov:ALBERT GUERRA DO 12/16/16 Reported Medications Multivitamin (Multivitamins)1 Each Capsule1 Each PO DAILY 12/14/16 Fluticasone Propionate (Flonase Allergy Relief)50 Mcg/Actuation Austin.susp1 [place] NASAL QID 12/14/16 Albuterol HFA (Proair HFA)8.5 Gm Hfa.aer.ad2 Puffs INH Q4H PRN For Shortness of Breath #9 12/14/16 Hydrocodone-Acetaminophen 10-325 mg 1 Each Tablet1 Tab PO Q4H PRN For Pain #150 12/14/16 Furosemide 20 Mg Tab20 Mg PO BID #60 12/14/16 Gabapentin 400 Mg Cvyqyhc322 Mg PO QID #120 12/14/16 Aspirin Chew 81 Mg Chew81 Mg PO DAILY Ref 0 06/11/16 Discontinued Reported Medications Cetirizine-Expunged Drug, Do Not Renew! 10 Mg Ediote07 Mg PO DAILY 10/01/13 Ondansetron ODT 8 MGTab (Zofran ODT 8 MG Tab)8 Mg Tab.rapdis8 Mg SL/PO Q4 PRN # 20 TAB 8 MG 10/01/13 Phenylephrine Hcl (Nasal [place])30 Ml Spray1 [place] NS TID PRN 10/01/13 Loperamide-Expunged Drug, Do Not Renew! (Imodium-Expunged Drug, Do Not Renew!)2 Mg Tablet2 Mg PO PRN 10/01/13 Hydrocod/APAP-Expunged, Do Not Renew! (VICODIN 7.5/325-Expunged Drug, Do Not Renew)1 Ea Tablet1 Ea PO Q4-6H PRN 10/01/13 HYDROcodone/APAP-Expunged Drug, Do Not Renew! (Vicodin 10/325-Expunged Drug, Do Not Renew!)1 Tab Tablet1 Tab PO QID PRN #20 TAB 10/01/13 Fluticasone-Expunged Drug, Do Not Renew! (Flonase-Expunged Drug, Do Not Renew!) 120 Sprays Juqg559 Sprays NA PM PRN 10/01/13 Docusate Sod-Expunged Drug, Do Not Renew! 250 Mg Gjo106 Mg PO HS 10/01/13 Albuterol-Expunged Drug, Do Not Renew! 200 Puff/8.5 Gm Hfa.aer.ad200 Puff IH Q4 PRN 10/01/13 Ipratropium-Expunged Drug, Do Not Renew! 345 [place]/30 Ml Spray2 Spr NA TID #30 ML 10/01/13 Folic Acid/Multivits-Min/Lut (Multi-Vitamin Gummies)1 Each Tab.chew1 Each PO DAILY 10/01/13 Folic Acid-Expunged Drug, Do Not Renew! 1 Mg Tablet1 Mg PO DAILY 05/16/12 Cholecalciferol-Expunged Drug, Do Not Renew! (Vitamin D3-Expunged Drug, Do Not Renew!)1,000 Unit Tab.chew1,000 Unit PO DAILY 05/16/12 Sennosides-Expunged Drug, Do Not Renew! (Senna Soft-Expunged Drug, Do Not Renew! )15 Mg Tvywnx66 Mg PO HS 05/16/12 Gabapentin-Expunged Drug, Do Not Renew! (Neurontin-Expunged Drug, Do Not Renew!) 400 Mg Moyvxoa683 Mg PO QID 05/16/12 History History of ENT Problems?: No HEENT History: Positive for:: Sinus Problem Denies:: Abnormal Airway Difficult Intubation Dysphagia Hearing Problem Denture Type: Full- Upper Full- Lower Hx of Heart Problems?: No Cardiovascular History: Denies:: Atrial Fibrillation Cardiac Surgery Chest Pain Congestive Heart Failure Heart Murmur Hypertension Irregular Heartbeat Pacemaker Thrombophlebitis Valvular Heart Disease Hx of Respiratory Problem?: Yes Respiratory History: Positive for:: COPD (patient states she does does not have copd but it is noted in chart history) Dyspnea Pneumonia (X 2 WHEN IN LATE 20'S) Denies:: Asthma Chest Surgery Cough Emphysema Hemoptysis Tuberculosis Hx Neurologic Problems?: No Neurological History: Positive for:: CVA (1989 SLIGHT CVA) Denies:: Dementia Dizziness Headaches Parkinson's Disease Seizures Hx of GI Problems?: No Gastrointestinal History: Positive for:: Cirrhosis Denies:: Diverticulitis Gastrointestinal Bleeding Heartburn Hepatitis Hiatal Hernia Rectal Bleeding Hx of Problems?: No Female Hx: Denies:: Currently Hx Musculoskeletal Problems?: Yes Musculoskeletal History: Positive for:: Back Injury (back becky) Denies:: Joint Replacement Hx of Psycho/Social Problems?: No Psycho Social History: Denies:: Anxiety Bipolar Disorder Hx Depression Suicide Attempt Hx Surgeries?: Yes Hx Any Other Health Problems?: No Other History: Positive for:: Hospitalization Denies:: Cancer Endocrine Disease Thyroid Disease Hx Diabetes: NoBedside Blood Glucose: 87 Hx Alcohol Use: NoHx Substance Use: No Smoking Status: Smoker Current Status UNK Have You Smoked inLast 12 mo: YesApprox How Many Cigarettes/day: 10 Stop/Bang Treated for Sleep Apnea?: No Do You Have a CPAP Machine?: No BETTE Risk Assessment: Low Risk, <3 Yes Risk Assessment Category Category 1A: Patient has history of documented sleep apnea, and HAS NOT received any narcotic, sedative or anesthesia administration during this stay. Category 1B: Patient has history of documented sleep apnea, and HAS received any narcotic , sedative or anesthesia administration during this stay Category 2: Patient has SUSPECTED Obstructive Sleep Apnea, and HAS received any narcotic , sedative or anesthesia administration during this stay. Category 3: Patient has SUSPECTED Obstructive Sleep Apnea and HAS NOT received narcotic, sedative or anesthesia administration during this stay. Category 4: Outpatient in Procedural Areas with known sleep apnea or who screen positive for High Risk via the STOP/BANG questionnaire. Low Risk, <3 Yes Exam Exam Vital Signs Vital Signs Date Time Temp Pulse Resp B/P Pulse Ox O2 Delivery O2 Flow Rate FiO2 12/21/16 08:00 Supplement Oxygen 12/21/16 07:39 36.6 80 14 108/65 93 Nasal Cannula 2.00 HEENT/AIRWAY: MP 3, Neck Movement (OK ), Mouth Opening (Wide, dentures) Lungs: Clear to Auscultation, Normal Air Movement Heart: Regular Rate/Rhythm, Normal S1 Meds/Labs/Diagnostics Bedside Blood Glucose: 87 Labs Test 12/13/16 17:58 12/13/16 21:59 12/14/16 02:45 12/15/16 03:10 Magnesium Level 1.8mg/dL (1.6-2.6) Troponin T < 0.010ug/L (0.0-0.011) Urine Color Yellow (YELLOW) Urine Appearance Clear (CLEAR,HAZY) Urine pH 6.0 (5.0-8.0) Urine Specific [place] 1.010 (1.003-1.035) Urine Protein Negativemg/dL (NEG,TRACE) Urine Glucose (UA) Negativemg/dL (NEGATIVE) Urine Ketones Negativemg/dL (NEGATIVE) Urine Occult Blood Negative (NEGATIVE) Urine Nitrite Negative (NEGATIVE) Urine Bilirubin Negative (NEGATIVE) Urine Urobilinogen Normalmg/dL (NORMAL) Urine Leukocyte Esterase Negative (NEGATIVE) Urine RBC 0-2/hpf (0-2) Urine WBC 6-10/hpf (0-5) Urine Epithelial Cells Few/hpf (NONE-MOD) Urine Crystals None seen (NONE SEEN) Urine Bacteria None/hpf (NONE-FEW) Urine Hyaline Casts None/lpf (NONE) Urine Granular Casts None seen (NONE SEEN) Urine Waxy Casts None seen (NONE SEEN) Urine Red Blood Cell Casts None seen (NONE SEEN) Urine White Blood Cell Casts None seen (NONE SEEN) Urine Mucus None seen (None Seen) Urine Trichomonas None seen (NONE SEEN) Urine Yeast None (NONE SEEN) Urine Culture Reflexed Indicated Erythrocyte Sedimentation Rate 32mm/hr (0-40) Prothrombin Time 10.7sec (8.1-12.5) Prothromb Time International Ratio 1.00ratio Test 12/16/16 03:34 12/19/16 06:08 12/20/16 08:03 12/21/16 07:10 Lactic Acid Level 0.8mmol/L (0.4-2.0) Total Creatine Kinase 93U/L (21-215) Procalcitonin 0.27ng/mL (See Comment) Neutrophils (%) (Auto) 67.7% (40-74) Lymphocytes (%) (Auto) 16.1% (14-46) Monocytes (%) (Auto) 11.5% (4-12) Eosinophils (%) (Auto) 3.7% (0-5) Basophils (%) (Auto) 0.3% (0-3) Total Bilirubin 0.2mg/dL (0.0-1.2) Aspartate Amino Transf (AST/SGOT) 21U/L (0-50) Alanine Aminotransferase (ALT/SGPT) 7U/L (0-32) Alkaline Phosphatase 86U/L (25-165) Total Protein 4.7g/dL (6.4-8.4) Albumin 1.7g/dL (3.4-5.0) Sodium Level 141mEq/L (134-144) Potassium Level 4.1mEq/L (3.5-5.2) Chloride Level 105mEq/L (97-108) Carbon Dioxide Level 26mmol/L (18-29) Blood Urea Nitrogen 9mg/dL (8-27) Creatinine 0.48mg/dL (0.57-1.00) Estimat Glomerular Filtration Rate 186mL/min (>59) Glucose Level 93mg/dL (60-99) Calcium Level 7.8mg/dL (8.5-10.1) White Blood Count 8.2th/mm3 (3.8-10.1) Red Blood Count 2.45mil/mm3 (3.90-5.20) Hemoglobin 7.4g/dL (12.0-15.6) Hematocrit 23.3% (35.0-46.0) Mean Corpuscular Volume 95.1fL (81-100) Mean Corpuscular Hemoglobin 30.2pg (27.0-35.0) Mean Corpuscular Hemoglobin Concent 31.8% (32.0-37.0) Red Cell Distribution Width 14.6% (12.3-15.4) Platelet Count 315bil/L (150-400) Plan Impression Patient chart reviewed, patient interviewed and anesthestic plan with risks, benefits, and alternatives discussed, and informed consent obtained. NPO Status: 12/20/2016 ASA Physical Status: ASA3 Severe Disease Anesthetic Plan: GA Bene/Risks/Altern/Consents: Yes HP Complete Prior to Induction: Yes Russell Marr MD Dec 21, 2016 12:50
[2016-12-21] MEDS ORDERED: Lidocaine PF 1% 30 mL Inj ONE (12:52)
[2016-12-21] MEDS ORDERED: Ondansetron 2 mg/mL 2 mL Inj ONE (12:52)
[2016-12-21] MEDS ORDERED: Phenylephrine/NS-PF 100 mCg/mL 5 mL Syringe IVPUSH ONE (12:52)
[2016-12-21] MEDS ORDERED: Propofol 10,000 mCg/mL 20 mL Inj ONE (12:52)
--- NOTE | 2016-12-21 13:55 | PCM.ANEP1 ---
Post Anesthesia Phase 1 PACU Phase 1 Assessment Date of Service: Dec 19, 2016 Vital Signs Vital Signs Date Time Temp Pulse Resp B/P Pulse Ox O2 Delivery O2 Flow Rate FiO2 12/21/16 13:50 87 18 116/55 92 Nasal Cannula 3 12/21/16 13:45 90 19 117/58 94 Simple Mask 8 12/21/16 13:40 91 20 118/60 94 Simple Mask 8 12/21/16 13:35 36.5 95 18 111/71 94 Simple Mask 8 12/21/16 08:00 Supplement Oxygen 12/21/16 07:39 36.6 80 14 108/65 93 Nasal Cannula 2.00 Anesthetic Administered: GA Level of Alertness: Awake, talking HERRON's with Equal Strength: Yes Nausea or Vomiting: No Oxygen Delivery: Simple Mask Lungs: Normal Air Movement Dermatome Level: Full Sensation Russell Marr MD Dec 21, 2016 13:55
--- NOTE | 2016-12-21 14:11 | PCM.PNSURG ---
Subjective Date of Service: Dec 21, 2016 Date of Service: Dec 21, 2016 Visit Information: Reason for Visit Right Leg Cellulitis Surgery/Surgery Date Post-Op Day # 0 Date of Admission: Dec 13, 2016 at 20:39 Hospital Day # 9 Subjective: This is a post operative note. Patient is in recovery and stable. Objective Objective VAC in place. No leak noted. Vital Sign- Last 8 Hours Date Time Temp Pulse Resp B/P Pulse Ox O2 Delivery O2 Flow Rate FiO2 12/21/16 13:55 86 13 117/62 92 Nasal Cannula 3 12/21/16 13:50 87 18 116/55 92 Nasal Cannula 3 12/21/16 13:45 90 19 117/58 94 Simple Mask 8 12/21/16 13:40 91 20 118/60 94 Simple Mask 8 12/21/16 13:35 36.5 95 18 111/71 94 Simple Mask 8 12/21/16 08:00 Supplement Oxygen 12/21/16 07:39 36.6 80 14 108/65 93 Nasal Cannula 2.00 Intake and Output- Last 8 Hour 12/21/16 Cumulative From/Thru 07:00 12/13/16 16:15 - 12/21/16 05:10 Intake Total 300 ml 60901 ml Output Total 3812 ml Balance 300 ml 09146 ml Intake Oral 300 ml 3219 ml IV Total 73622 ml TPN/PPN 770 ml Output Urine Total 3800 ml Urine/Stool Mix 2 ml Estimated Blood Loss 10 ml # Voids 2 19 # Bowel Movements 1 8 Result Diagram: 12/21/16 0710 12/20/16 0803 Assessment & Plan Impression Right leg wound with seroma under both the medial and lateral skin flaps. Problems: Plan 1) Intraoperatively, seromas were noted under the medial and lateral skin flaps. The medial seroma was quite large. Integra was NOT placed due to the seroma and non-adherent skin flaps. 2) Discussed the wound with Teja Maddox at wound care. He will change the VAC dressing on 12/25/16 per our discussion. 3) Medical care per ID and medicine. 4) I will check on the wound on 12/25/16 at the time of VAC change. I will consider wound wash out next week if the skin flaps adhere and the seromas resolve. Resuscitation Status: DNR/DNI:Do Not Resuscitate/Intubate Vic Alvarez MD Dec 21, 2016 14:11
--- NOTE | 2016-12-21 14:37 | PCM.ANEP2 ---
Post Anesthesia Evaluation ASA/CMS Post Anesthesia Date of Service: Dec 21, 2016 VS in Patient's Normal Range?: Yes Resp Stable; Airway Patent?: Yes (came to OR on nasal canula) CV Function & Hydration Stable: Yes Mental Status Recovered?: Yes Pain control Satisfactory?: Yes N/V Control Satisfactory?: Yes Russell Marr MD Dec 21, 2016 14:37
--- NOTE | 2016-12-21 14:46 | NUR ---
NUTRITION FOLLOW-UP: ASSESS: 66 YO female admitted for Right leg cellulitis. Pt has been NPO on and off during hospitalization for repeat I and D. Pt having surgery again today for possible plastic closure per notes. Pt po intake has improved with diet being advanced to general with pt now eating 25-50% of meals. PMHx: Arthritis, COPD, CVA, Pneumonia, TIA, anemia, cirrhosis, GERD, osteoporosis. LABS: Reviewed. MEDS: Reviewed. GI: BM x 1 (2/2) SKIN: I and D site for R leg cellulitis. CURRENT WT: 77.5 kg. DIET: General. PO 25-50% EST. NEEDS: 8118-9760 kcals (25-30 kcals/kg BW), 95-115 g protein (1.2-1.5 g/kg BW) NUTRITION DIAGNOSIS: 1.) Inadequate oral intake related to unknown etiology as evidenced by po intake of 25-50% of meals--PERSISTS. NUTRITION INTERVENTION: 1.) Will add ensure to all trays. MONITOR / EVAL: PO intake, labs, nutritional status. Follow per moderate nutritional risk guidelines.
--- NOTE | 2016-12-21 14:51 | OP ---
[address] [address] OPERATIVE REPORT PATIENT: OSMAN WOLFE : 1950 MR#: [id number] ADMIT: 12/13/2016 JOB ID: [id number] DATE OF SURGERY: 12/21/2016 PREOPERATIVE DIAGNOSIS(ES): Right leg wound. POSTOPERATIVE DIAGNOSIS(ES): 1. Right leg wound. 2. Right leg seroma x2. PROCEDURES: 1. Washout of right leg wound 14 cm x 5 cm. 2. Evacuation of subcutaneous seroma through the wound x2. The seroma measured approximately 8 cc by 14 cc. 3. Placement of VAC dressing including black sponge over the wound and white sponge into the seroma cavities. SURGEON: Vic Alvarez MD MATHEMATICIAN: None. ANESTHESIA: General anesthesia. ESTIMATED BLOOD LOSS: Minimal. COMPLICATIONS: None apparent. DRAINS: Negative pressure therapy. INDICATIONS FOR PROCEDURE: This is a 66-year-old female patient who developed a right leg abscess. The patient had previously been taken to the operating room for incision and debridement, partial closure complicated by fat necrosis and additional debridement. At this point, the patient's care has been transferred to nm. Reevaluation is indicated with possible Integra placement if the wound is ready. PROCEDURES AND FINDINGS: The patient was identified in the preoperative area. Surgical site was marked. The patient was then taken back to the operating room and placed supine on the operating table. Appropriate time-outs were taken. General anesthesia was induced smoothly. The patient was then prepped and draped in the usual sterile manner. It was noted that patient has a 14 x 5 ovoid wound on the right leg. The tibia with its overlying periosteum is of the medial aspect of the wound while majority of the wound is over the lateral compartment. There was quite a bit of fluid underneath the skin flap around the wound itself. I probed with my finger and evacuated approximately 50 cc of seroma fluid from the medial skin flap and a small amount from the lateral skin flap. I then examined the skin flap. It was noted that the skin flap was elevated with the underlying seroma extended to almost midline posteriorly. On the lateral aspect of the wound, the seroma extended approximately 5 cm beyond the wound edge. Inferiorly, the wound extends down to the ankle. Given the presence of the seroma, I elected not to place Integra. The area was then washed with a posterior gaming worker using 1 L of bacitracin. Once this has been done, I obtained the white VAC foam and cut into several small strips. These were placed into the seroma cavity with the end of the strip exiting into the wound. A black VAC sponge was then trimmed to size. The black graft sponge was then placed over the white sponge and over the wound. At this point, it was noted the patient also had several areas of superficial skin damage. Adaptic was then placed over these areas of damage. The VAC sponge was then applied and secured in place with the VAC tape that was supplied. It was then placed on negative therapy at 125 mmHg. Care was taken to seal all the leaks. The patient tolerated this procedure well. Needle count, sponge count and instrument counts were correct at the end of procedure. The patient was extubated and transported to recovery in stable condition. EHSAN
--- NOTE | 2016-12-21 17:26 | NUR ---
Back from OR patient is back from OR. report received by OR nurse and states," I&D done and wound vac back." patient is alert and orientedX3. Vital signs WNL.
--- NOTE | 2016-12-21 17:53 | NUR ---
spiritual care: pt request brief visit, pt expressed her discomfort and weariness. Brief discussion about spirituality and roman catholic orientation. pt oriented, waiting for dinner.
[2016-12-22] MEDS: Sodium Chloride LOK Flush 10 mL Syringe IV SCH ×7 (00:30→15:03)
[2016-12-22 00:37] VITALS: BP 112/63; PULSE 78; RESP 16; O2SAT 94
[2016-12-22 04:48] VITALS: BP_SYST 102; BP_SYST 96; BP_DIAS 54; BP_DIAS 60; PULSE 85; PULSE 92; RESP 18; O2SAT 96
--- NOTE | 2016-12-22 05:27 | NUR ---
Pain pt c/o 05/28 right leg pain x2. scheduled OxyContin and PRN Roxicodone medication given for pain which was effective. pt A&O X4. CMS intact. pt on 2L O2 via NC and CPOX with SPO2 in mid 90s. wound vac draining brownish in color drainage. will continue to monitor.
[2016-12-22 06:59] LABS: Mean Corpuscular Hemoglobin 29.9 pg (27.0-35.0); Mean Corpuscular Volume 96.2 fL (81-100)
[2016-12-22 07:59] VITALS: BP 107/69; PULSE 80; RESP 16; O2SAT 92
[2016-12-22] MEDS: Senna-Docusate 8.6-50 mg Tablet PO SCH ×4 (08:30→20:30)
[2016-12-22] MEDS: Fluticasone-Salmeterol 100-50 Inhaler INHALATION SCH ×2 (08:30→20:49)
[2016-12-22] MEDS ORDERED: 0.9% Sodium Chloride 250 ML ONE (09:01)
[2016-12-22] MEDS: oxyCODONE ER 10 mg ER12 Tablet PO SCH ×2 (09:16→20:52)
[2016-12-22] MEDS: Ertapenem Inj 1,000 MG in 0.9% Sodium Chloride 50 ML IV SCH (09:16)
[2016-12-22] MEDS: DAPTOmycin Inj 500 MG in 0.9% Sodium Chloride 50 ML IV SCH (09:54)
--- NOTE | 2016-12-22 11:43 | PROG NOTE ---
[address] [address] PROGRESS NOTE PATIENT: OSMAN WOLFE : 1950 MR#: [id number] ADMIT: 12/13/2016 JOB ID: [id number] DATE: 12/22/2016 INFECTIOUS DISEASE FOLLOW UP NOTE: REASON FOR FOLLOWUP: Extensive polymicrobial right lower extremity abscess without evidence of osteomyelitis. INTERVAL HISTORY: The patient continues to do reasonably well. Yesterday she went back to the OR for another debridement and attempted placement of a skin flap with Integra but this was not possible due to the formation of a large seroma and the massive size of the defect. The decision was made to continue with Wound VAC. This morning the patient is awake, alert, has no fevers, chills or sweats. No cough, shortness of breath. No nausea, vomiting or diarrhea. PHYSICAL EXAMINATION: Reveals a woman in no acute distress. Temperature 36.9. She has been afebrile for her whole hospital stay actually. Pulse 80, respiratory rate 16, blood pressure 107/69, saturating 92% on 2 L. She is awake, alert, interactive. Lungs fairly clear. Cardiac tones: Irregular rate and rhythm without murmur. Abdomen soft and nontender. She does not have a PICC line. Her peripheral IV appears benign. Her right lower extremity has a Wound VAC which is fairly extensive around the mid tibial area without surrounding cellulitis. LABORATORIES: Include a white count stable at 7300, platelets stable 329. Creatinine 0.47. LFTs normal. Last procalcitonin was several days ago at 0.27. Micro studies include multiple organisms including MSSA, Enterobacter cloacae sensitive to Cipro, Corynebacterium striatum and beta-hemolytic group B strep. A MRSA screen of the nares was negative. The operative notes were reviewed in detail from Dr. Alvarez. IMPRESSION: This unfortunate woman presents with a massive abscess of her right lower extremity which has now been debrided a total of three times. She is going to require Wound VAC for a considerable period of time. At this point there is no evidence for osteomyelitis and it sounds from the operative notes as if there is no longer any purulence being encountered. A reasonable oral regimen has been considered and we just reviewed the literature extensively on Corynebacteria striatum and its susceptibilities. The literature shows that Corynebacteria striatum are susceptible rather uniformly to the oral agent linezolid which will give great coverage for the group B strep, the Staph aureus and the Corynebacteria. The gram-negative can be managed with ciprofloxacin. RECOMMENDATIONS: 1. Will go ahead and discontinue the dapto and ertapenem as she has received basically 10 days of these agents. 2. Will start on oral Cipro 500 p.o. b.i.d. and the linezolid 600 p.o. b.i.d. 3. An EKG should be obtained today to check for QTc interval, to make sure that is acceptable. 4. I would continue with the oral agents for 10 days each, that is, linezolid 600 p.o. b.i.d. and Cipro 500 p.o. b.i.d. 5. Longer courses of antibiotics are probably not going to be required here as there is no evidence for osteomyelitis. Thank you very much for allowing us to be involved in this complex case.
--- NOTE | 2016-12-22 14:25 | NUR ---
Wound Care Discussed case with Dr Alvarez 12/21, changed canister out today and increased pressure to 150 mmHg, there was 350 Ml of serosanguinous drainage, good seal noted. Will change dressing with Dr Alvarez on Sunday12/25/16.
--- NOTE | 2016-12-22 15:09 | PCM.PNMED ---
Subjective Date of Service Dec 22, 2016 Subjective Patient was examined at bedside today. Patient denies any chest pain, shortness of breath, nausea, vomiting, diarrhea. Patient states that her lower extremity pain is well controlled. Exam Vital Signs Vital Sign - Last Date Time Temp Pulse Resp B/P Pulse Ox O2 Delivery O2 Flow Rate FiO2 12/22/16 08:45 Supplement Oxygen 12/22/16 07:59 36.9 80 16 107/69 92 2.00 Intake and Output 12/21/16 12/21/16 12/22/16 Cumulative From/Thru 15:00 23:00 07:00 12/13/16 16:15 - 12/22/16 06:18 Intake Total 700 ml 100 ml 200 ml 82546 ml Output Total 250 ml 4062 ml Balance 700 ml -150 ml 200 ml 09535 ml Intake Oral 200 ml 3419 ml IV Total 700 ml 100 ml 98389 ml TPN/PPN 770 ml Output Urine Total 250 ml 4050 ml Urine/Stool Mix 2 ml Estimated Blood Loss 10 ml # Voids 1 1 21 # Bowel Movements 8 Exam Physical Exam: GEN: Patient was awake, alert, responding appropriately to questions HEENT: PERRLA, EOMI, Neck soft supple, trachea midline, nomocephalic/atraumatic CV: +S1/S2, RRR, no murmurs auscultated Respiratory: CTAB, no wheezes, rales, rhonchi GI: +bowel sounds x4, soft, compressible, non TTP Skin: Leathery bilaterally EXT: no c/c right lower extremity wound VAC in place Neuro: CN II-XII grossly intact Psych: mood and affect were appropriate IVs and Medications Medications Reviewed: Medications were reviewed in detail Medications Current Medications Acetaminophen 650 mg Q6H PRN PO Last administered on 12/20/16 18:35; Admin Dose 650 MG; Start 12/20/16 at 18:25 Docusate Sodium 100 mg 100 mg BID PRN PO; Start 12/21/16 at 11:20 Lactated Ringer's 1,000 ml @ 120 mls/hr Q8H20M IV Last administered on 13:17; Start 12/21/16 at 12:50; Stop 12/21/16 at 14:44; Status DC Ephedrine Systolic SBP below 90 ... Q2MIN PRN IVPUSH; Start 12/21/16 at 12:50; Stop 12/21/16 at 14:44; Status DC Phenylephrine HCl Systolic BP below 90 ... ONCE PRN IVPUSH; Start 12/21/16 at 12 :50; Stop 12/21/16 at 14:44; Status DC Lactated Ringer's 500 ml @ 0 mls/hr Q0M PRN IV; Start 12/21/16 at 12:50; Stop 12/21/16 at 14:44; Status DC Hydralazine HCl 5 mg Q10MIN PRN IVPUSH; Start 12/21/16 at 12:50; Stop 12/21/16 at 14:44; Status DC Atropine Sulfate 0.4 mg PRN PRN IVPUSH; Start 12/21/16 at 12:50; Stop 12/21/16 at 14:44; Status DC Fentanyl Citrate 25-50 mcg IV every 5 min p... Q5MIN PRN IVPUSH; Start 12/21/16 at 12:50; Stop 12/21/16 at 14:44; Status DC Morphine Sulfate 1-4 mg IV every 5 min p... Q5MIN PRN IVPUSH; Start 12/21/16 at 12:50; Stop 12/21/16 at 14:44; Status DC Hydromorphone HCl 0.2-1 mg IV every 5 min p... Q5MIN PRN IVPUSH; Start 12/21/16 at 12:50; Stop 12/21/16 at 14:44; Status DC Meperidine HCl 12.5-25 mg IV every 5 min p... Q5MIN PRN IVPUSH; Start 12/21/16 at 12:50; Stop 12/21/16 at 14:44; Status DC Diphenhydramine HCl 12.5-50 mg IV prn itchi... Q30MIN PRN IVPUSH; Start at 12:50; Stop 12/21/16 at 14:44; Status DC Dexamethasone Sodium Phosphate 4 mg ONCE PRN IVPUSH; Start 12/21/16 at 12:50; Stop 12/21/16 at 14:44; Status DC Metoclopramide HCl 10 mg Q10MIN PRN IVPUSH; Start 12/21/16 at 12:50; Stop at 14:44; Status DC Ondansetron HCl 4-8 mg IV every 4 hours ... Q4H PRN IVPUSH; Start 12/21/16 at 12 :50; Stop 12/21/16 at 14:44; Status DC Midazolam HCl 0.5-1 mg IV every 5 min p... Q5MIN PRN IVPUSH; Start 12/21/16 at 12:50; Stop 12/21/16 at 14:44; Status DC Linezolid 600 mg BID PO Last administered on 12/22/16 12:35; Admin Dose 600 MG; Start 12/22/16 at 11:10; Stop 01/01/17 at 11:11 Ciprofloxacin 500 mg BID PO Last administered on 12/22/16 12:34; Admin Dose 500 MG; Start 12/22/16 at 11:10; Stop 01/01/17 at 11:11 Lab and Diagnostics Result Diagram: 12/22/16 0653 12/22/16 0653 X-Rays, CTs and MRIs Date of Service: 12/13/16 1738 PROCEDURE: X-RAY CHEST ONE VIEW, PORTABLE ([id number]) IMPRESSION: No acute cardiopulmonary disease Dictated by: Anthony Aldrich M.D. on 12/13/2016 at 19:48 Date of Service: 12/13/161999 PROCEDURE: CT TIBIA FIBULA RIGHT W/CONTRAST ([id number]) INDICATIONS: R leg abscess IMPRESSION: Possible rim-enhancing abscess in the anterior soft tissues at the mid tibial diaphyseal level, although unclear if this communicates with the skin surface. Please correlate with clinical exam findings Possible osteonecrosis/AVN involving the distal tibial diametaphysis. Please correlate clinically and with radiographs. Confirmation with ankle MRI could be performed as clinical warranted. Severe circumferential subcutaneous and soft tissue swelling in keeping with cellulitis. Dictated by: Anthony Aldrich M.D. on 12/13/2016 at 20:50 Assessment & Plan Patient is a 66 year old female with a history of lupus, neuropathy, COPD, TIA, CVA . Admitted for right lower leg cellulitis, abscess, and planned I&D today. Hospital Day 3. Cellulitis with abscess, present on admission. Acute. Improving -Surgical I&D yesterday went well, patient scheduled for plastics closure on -MRSA negative -Wound cultures positive for group B beta strep, Enterobacter Cloacae, corynebacterium striatum, Staphylococcus aureus with normal penny -Continue pain management with Dilaudid and oxycodone -Continue antibiotics per ID of clindamycin, meropenem, and daptomycin -Patient leukocytosis is improving on current antibiotic therapy -We will continue to monitor Urine culture showed mixed urogenital penny Hypocalcemia (resolving) -Calcium was 6.9-->7.6-->7.8--> 7.6 -1 dose of calcium gluconate (12/18/16) responded well -Continue calcium carbonate 3 times a day -We will continue to monitor COPD - continue home dose Advair Neuropathy - continue home dose gabapentin - Vicodin held Lupus - continue to monitor GERD - patient not on any medication for this Allergic rhinitis - continue home cetirizine - Acetaminophen as needed for mild pain/fever/headache - Bowel regimen as needed - Antiemetic as needed DVT: anticoagulation held due to I&D in am, SCD not appropriate due to lesion in lower extremity GI: not indicated CODE: DNR/DNI Disposition: Patient was unable to have wound closure yesterday as scheduled. Plastics felt that she needed a few more days with the wound VAC before an optimal closure was able to take place. Surgery states that the patient is stable to go home and follow up with the wound care clinic on Sunday for wound VAC management. Infectious disease is also evaluated the patient state that once she is stable she can go home on linezolid and Cipro. Patient may be able to be discharged home tomorrow. VTE Mechanical Devices: Intermittant Pneumatic CD Resuscitation Status: DNR/DNI:Do Not Resuscitate/Intubate Time spent Greater than 35 minutes Mariza Collins DO Dec 22, 2016 15:09
[2016-12-22] MEDS: 0.9% Sodium Chloride 1,000 ML IV SCH (15:36)
[2016-12-22 16:16] VITALS: BP 84/53; PULSE 87; RESP 16; O2SAT 89
--- NOTE | 2016-12-22 18:52 | NUR ---
Pain Pt complained of pain as high as "8/10" at times during the day. She was given oxycodone x2 today. She was repositioned per comfort. Wound vac dressing was changed on her R leg today. She has not gotten out of bed during this shift. Using a bedpan.
[2016-12-22 19:16] VITALS: BP 104/67; PULSE 92; RESP 14; O2SAT 90
--- NOTE | 2016-12-22 19:23 | NUR ---
Wound NPWT at right leg taken down after conversation with Dr Change as periwound skin breaking down due to excessive moisture under drape, redressed with adaptic over at risk periwound sjkin then foam over all open areas surgically placed foam not removed. Good seal attained at 125 mmhg and home going NPWT system provided for pt. Nursing to switch machine out in am for discharge and notify CS that vac has been discontinued, place in soiled utility minus canister.
--- NOTE | 2016-12-22 21:00 | NUR ---
IV Infiltrate R wrist IV infiltrated leaking w/ edema d/c"d site and wrapped w/warm blanket difficult start had to get P[facility] charge to obtain acces LFA
[2016-12-23] VITALS (10 sets, daily range): BP systolic 96–119; BP diastolic 59–78; PULSE 79–95; RESP 16–20; O2SAT 91–94
[2016-12-23] MEDS: Sodium Chloride LOK Flush 10 mL Syringe IV SCH ×6 (00:30→16:30)
[2016-12-23] MEDS: 0.9% Sodium Chloride 1,000 ML IV SCH (08:12)
[2016-12-23] MEDS: Senna-Docusate 8.6-50 mg Tablet PO SCH ×4 (08:12→20:30)
[2016-12-23] MEDS: Fluticasone-Salmeterol 100-50 Inhaler INHALATION SCH ×2 (08:12→20:34)
[2016-12-23] MEDS: oxyCODONE ER 10 mg ER12 Tablet PO SCH ×2 (08:13→20:36)
--- NOTE | 2016-12-23 10:31 | NUR ---
TARIK signed by patient
[2016-12-23 11:58] LABS: Mean Corpuscular Hemoglobin 29.2 pg (27.0-35.0)
[2016-12-23] MEDS ORDERED: Furosemide 10 mg/mL 2 mL Inj IV ONE (12:50)
--- NOTE | 2016-12-23 13:03 | PCM.PNMED ---
Subjective Date of Service Dec 23, 2016 Subjective Patient was examined at bedside today. Patient denies any chest pain, shortness of breath, nausea, vomiting, diarrhea. Patient complained of mild tenderness to palpation of the right lower extremity but overall her pain has been well-controlled. Exam Vital Signs Vital Sign - Last Date Time Temp Pulse Resp B/P Pulse Ox O2 Delivery O2 Flow Rate FiO2 12/23/16 08:00 36.6 79 16 106/66 91 Nasal Cannula 3.00 Intake and Output 12/22/16 12/22/16 12/23/16 Cumulative From/Thru 15:00 23:00 07:00 12/13/16 16:15 - 12/23/16 06:50 Intake Total 997 ml 1189 ml 53593 ml Output Total 350 ml 4412 ml Balance 647 ml 1189 ml 84275 ml Intake Oral 550 ml 600 ml 4569 ml IV Total 447 ml 589 ml 72909 ml TPN/PPN 770 ml Output Urine Total 350 ml 4400 ml Urine/Stool Mix 2 ml Estimated Blood Loss 10 ml # Voids 1 22 # Bowel Movements 1 9 Exam Physical Exam: GEN: Patient was awake, alert, responding appropriately to questions HEENT: PERRLA, EOMI, Neck soft supple, trachea midline, nomocephalic/atraumatic CV: +S1/S2, RRR, no murmurs auscultated Respiratory: CTAB, no wheezes, rales, rhonchi GI: +bowel sounds x4, soft, compressible, non TTP EXT: no c/c right lower extremity wound VAC in place Skin: Leathery bilaterally Neuro: CN II-XII grossly intact Psych: mood and affect were appropriate IVs and Medications Medications Reviewed: Medications were reviewed in detail Medications Current Medications Linezolid 600 mg BID PO Last administered on 12/22/16 20:50; Admin Dose 600 MG; Start 12/22/16 at 11:10; Stop 12/23/16 at 07:15; Status DC Ciprofloxacin 500 mg BID PO Last administered on 12/23/16 08:12; Admin Dose 500 MG; Start 12/22/16 at 11:10; Stop 01/01/17 at 11:11 Ferrous Sulfate 325 mg DAILYWM PO Last administered on 12/23/16 08:12; Admin Dose 325 MG; Start 12/23/16 at 08:00 Linezolid 600 mg BID PO Last administered on 12/23/16t 11:45; Admin Dose 600 MG; Start 12/23/16 at 10:25 Lab and Diagnostics Result Diagram: 12/23/16 1126 12/22/16 0653 X-Rays, CTs and MRIs Date of Service: 12/13/16 1738 PROCEDURE: X-RAY CHEST ONE VIEW, PORTABLE ([id number]) IMPRESSION: No acute cardiopulmonary disease Dictated by: Anthony Aldrich M.D. on 12/13/2016 at 19:48 Date of Service: 12/13/161999 PROCEDURE: CT TIBIA FIBULA RIGHT W/CONTRAST ([id number]) INDICATIONS: R leg abscess IMPRESSION: Possible rim-enhancing abscess in the anterior soft tissues at the mid tibial diaphyseal level, although unclear if this communicates with the skin surface. Please correlate with clinical exam findings Possible osteonecrosis/AVN involving the distal tibial diametaphysis. Please correlate clinically and with radiographs. Confirmation with ankle MRI could be performed as clinical warranted. Severe circumferential subcutaneous and soft tissue swelling in keeping with cellulitis. Dictated by: Anthony Aldrich M.D. on 12/13/2016 at 20:50 Assessment & Plan Patient is a 66 year old female with a history of lupus, neuropathy, COPD, TIA, CVA . Admitted for right lower leg cellulitis, abscess, and planned I&D today. Hospital Day 3. Cellulitis with abscess, present on admission. Acute. Improving -MRSA negative -Wound cultures positive for group B beta strep, Enterobacter Cloacae, corynebacterium striatum, Staphylococcus aureus with normal penny -Continue pain management with Dilaudid and oxycodone -Continue antibiotics per ID of clindamycin, meropenem, and daptomycin -Patient leukocytosis is improving on current antibiotic therapy -We will continue to monitor Microcytic anemia most likely secondary to multiple surgical procedures -Hemoglobin 6.6 -Patient has been consented we will transfuse 2 units of blood today -We will continue to monitor Urine culture showed mixed urogenital penny Hypocalcemia (resolving) -Calcium was 6.9-->7.6-->7.8--> 7.6 -1 dose of calcium gluconate (12/18/16) responded well -Continue calcium carbonate 3 times a day -We will continue to monitor COPD - continue home dose Advair Neuropathy - continue home dose gabapentin - Vicodin held Lupus - continue to monitor GERD - patient not on any medication for this Allergic rhinitis - continue home cetirizine - Acetaminophen as needed for mild pain/fever/headache - Bowel regimen as needed - Antiemetic as needed DVT: anticoagulation held due to I&D in am, SCD not appropriate due to lesion in lower extremity GI: not indicated CODE: DNR/DNI Disposition: Patient was scheduled to be discharged home today to finish out a 10 day course of linezolid 600 mg twice a day and Cipro 500 mg twice a day. However the patient's hemoglobin has dropped to 6.6 today. This is most likely secondary to the chronic repeat surgical procedures that she has been having. The patient will be transfused 2 units of blood today she has consented to this procedure. The patient has no other signs of bleeding and this is most likely secondary to blood loss from multiple surgical procedures. If the patient is stable she should be able to be discharged home tomorrow and follow up with wound care on Sunday. The patient presented to the hospital with a complaint of right lower extremity cellulitis. Blood cultures were performed and the patient was positive for group B beta streptococcus, Enterobacter cloacae complex, corynebacterium striatum, staph aureus. The patient was taken to the OR in order to have an I& D. The patient had a significant wound and closure was not able to be possible. Therefore multiple I&D's were done with wound VAC administration status post each surgical procedure. Last the patient was supposed to have closure of this wound however plastics went in and found the opening to still be too significantly deep and has elected to do a wound closure at a later date and is said to another I&D/washout. The patient should continue to follow-up with wound care at regularly scheduled appointments. The patient should follow-up with plastics for further surgical dates. Resuscitation Status: DNR/DNI:Do Not Resuscitate/Intubate Time spent Greater than 35 minutes Mariza Collins DO Dec 23, 2016 13:03
[2016-12-23] MEDS ORDERED: 0.9% Sodium Chloride 250 ML ONE (14:54)
--- NOTE | 2016-12-23 15:08 | NUR ---
Social Work: Readiness for Discharge Data & Assessment: Patient was discuss in daily rounds and the patient is likely to discharge tomorrow if her H&H is not low. Shuttle Repairer met with patient at bedside to discuss discharge plan. Patient will discharge home with Kylie BUCKNER. Patient states that she usually transports via [facility] or [facility]. SW contacted [facility] and they are unable to transport patient with medicaid on the weekend if they have not received prior authorization during the week. SW contacted [facility] and they are able to transport the patient home as long as they are contacted by 3:30pm the day of discharge. SW will continue to follow. Plan: It is likely that patient will discharge home tomorrow with Kylie BUCKNER via [facility] [phone]. SW will continue to follow. Aydee Reno, SHONDA, ACM
--- NOTE | 2016-12-23 16:23 | NUR ---
PRBC Patient Hgb 6.6 today. Hospitalist notified. Order received for 2 units PRBC's, 20mg IV lasix after 2nd unit, and recheck Hgb/Hct 2hrs post infusion of second unit. Addendum: 12/23/16 at 1913 by PAYAL MONROY RN pt tolerated first unit of PRBC, no s/sx of reaction.
[2016-12-23] MEDS ORDERED: 0.9% Sodium Chloride 100 ML ONE (19:03)
--- NOTE | 2016-12-23 20:42 | NUR ---
PRBC/IV site went to hang second unit prbc ,site was painful to flush and no blood return, d/c'd IV and restarted access and hung 2nd of of 2 unit prbc
--- NOTE | 2016-12-23 20:43 | NUR ---
loose stool incontinent episode of diarrhea Hold joy
[2016-12-23] MEDS ORDERED: Furosemide 10 mg/mL 2 mL Inj ONE (23:06)
[2016-12-24] MEDS: 0.9% Sodium Chloride 1,000 ML IV SCH ×3 (00:21→20:19)
[2016-12-24] MEDS: Sodium Chloride LOK Flush 10 mL Syringe IV SCH ×6 (00:27→16:30)
--- NOTE | 2016-12-24 04:06 | NUR ---
Post transfusion lasix given after second unit patient did not call until bed was completely drenched, stated she urinated 3x! ", didn't call because kept falling asleep! did complete bed change & bed bath , post H&H 08/16
[2016-12-24 04:31] VITALS: BP 114/66; PULSE 85; RESP 20; O2SAT 90
[2016-12-24 07:39] LABS: Mean Corpuscular Hemoglobin 29.6 pg (27.0-35.0); Mean Corpuscular Volume 92.1 fL (81-100)
[2016-12-24] MEDS: oxyCODONE ER 10 mg ER12 Tablet PO SCH ×2 (07:45→20:20)
[2016-12-24] MEDS: Fluticasone-Salmeterol 100-50 Inhaler INHALATION SCH ×2 (07:45→20:20)
[2016-12-24] MEDS: Senna-Docusate 8.6-50 mg Tablet PO SCH ×4 (07:48→20:30)
[2016-12-24 10:56] VITALS: BP 115/65; PULSE 90; RESP 20; O2SAT 92
--- NOTE | 2016-12-24 11:31 | NUR ---
Loose stools Pt continues to have loose stools. Two incontinent stools this AM. Hospitalist notified. Order received for Micro Stool PCR Stat. Stool sample sent.
[2016-12-24 17:00] VITALS: BP 130/80; PULSE 79; RESP 20; O2SAT 91
--- NOTE | 2016-12-24 17:06 | PCM.PNMED ---
Subjective Date of Service Dec 24, 2016 Subjective denies any new issues/complaints however, per nursing patient with increasing diarrhea today. pt says has had this problem before. Exam Vital Signs Vital Sign - Last Date Time Temp Pulse Resp B/P Pulse Ox O2 Delivery O2 Flow Rate FiO2 12/24/16 10:56 36.6 90 20 115/65 92 Nasal Cannula 3.00 Intake and Output 12/23/16 12/23/16 12/24/16 Cumulative From/Thru 15:00 23:00 07:00 12/13/16 16:15 - 12/24/16 06:05 Intake Total 1919 ml 1609 ml 50572 ml Output Total 4412 ml Balance 1919 ml 1609 ml 54242 ml Intake Oral 536 ml 360 ml 5465 ml IV Total 783 ml 922 ml 14929 ml TPN/PPN 770 ml Packed Cells 600 ml 327 ml 927 ml Output Urine Total 4400 ml Urine/Stool Mix 2 ml Estimated Blood Loss 10 ml # Voids 2 6 30 # Bowel Movements 1 1 11 Exam GEN: Patient was awake, alert, responding appropriately to questions HEENT: PERRLA, EOMI, Neck soft supple, trachea midline CV: +S1/S2, RRR Respiratory: CTAB, no wheezes, rales, rhonchi GI: +bowel sounds x4, soft, compressible, non TTP EXT: no c/c right lower extremity wound VAC in place Skin: Leathery bilaterally Neuro: CN II-XII grossly intact Psych: mood and affect appropriate IVs and Medications Medications Reviewed: Medications were reviewed in detail Lab and Diagnostics Result Diagram: 12/24/16 0730 12/24/16 0730 X-Rays, CTs and MRIs Date of Service: 12/13/16 8608 PROCEDURE: X-RAY CHEST ONE VIEW, PORTABLE ([id number]) IMPRESSION: No acute cardiopulmonary disease Dictated by: Anthony Aldrich M.D. on 12/13/2016 at 19:48 Date of Service: 12/13/161999 PROCEDURE: CT TIBIA FIBULA RIGHT W/CONTRAST ([id number]) INDICATIONS: R leg abscess IMPRESSION: Possible rim-enhancing abscess in the anterior soft tissues at the mid tibial diaphyseal level, although unclear if this communicates with the skin surface. Please correlate with clinical exam findings Possible osteonecrosis/AVN involving the distal tibial diametaphysis. Please correlate clinically and with radiographs. Confirmation with ankle MRI could be performed as clinical warranted. Severe circumferential subcutaneous and soft tissue swelling in keeping with cellulitis. Dictated by: Anthony Aldrich M.D. on 12/13/2016 at 20:50 Assessment & Plan 66 year old female with a history of lupus, neuropathy, COPD, TIA, CVA . Admitted for right lower leg cellulitis, abscess # Acute cellulitis/abscess/seroma of right leg, present on admission. Acute. Improving - Wound cultures positive for group B beta strep, Enterobacter Cloacae, corynebacterium striatum, Staphylococcus aureus with normal penny - appreciate ID, ortho and plastic surgery consults. will f/u w/ recs - post Right tibial abscess I&D, application of negative pressure therapy wound vacuum by Dr. Almonte on 12/14 - post Irrigation and debridement of right leg including the skin and subcutaneous tissue and fat and re-application of a BME Wound VAC by Dr. Bauer on 12/16 and again on 12/19 - post Washout of right leg wound, evacuation of subcutaneous seroma through the wound x2, and placement of VAC dressing by Dr. Alvarez on 12/21/16 - Dapto and ertapenem stopped on 12/22 after 10 days of therapy - c/w oral Cipro 500 p.o. b.i.d. and linezolid 600 p.o. b.i.d. for 7 more days - plan f/u at wound care tomorrow 12/25 if able to d/c home on early # Acute on chronic microcytic anemia most likely secondary to multiple surgical procedures - post 2 units PRBC on 12/23/16 with appropriate increase in h/h - no other source of active bleeding noted - f/u h/h in am # Acute diarrhea. not present on admission - r/o C. diff given ongoing Abx treatment # Acute on chronic Hypocalcemia. poa (resolving) - 1 dose of calcium gluconate (12/18/16) responded well - Continue calcium carbonate 3 times a day while in hospital - further f/u as outpatient # COPD. stable - continue home dose Advair # Neuropathy. chronic. stable - continue home dose gabapentin # Lupus. chronic. stable - continue to monitor - further f/u as outpatient # GERD - patient not on any medication for this # Allergic rhinitis - continue home cetirizine Dispo: home in am if rule out for C. diff Resuscitation Status: DNR/DNI:Do Not Resuscitate/Intubate Fco Bush Dec 24, 2016 17:06
--- NOTE | 2016-12-24 18:55 | NUR ---
Precautions Pt placed on contact enteric precautions while micro stool sample pending.
--- NOTE | 2016-12-24 18:56 | NUR ---
Refusing care Patient refusing q2h turns despite education. Pt has allowed turning twice in this 12hr shift.
[2016-12-24 19:48] VITALS: BP 126/71; PULSE 85; RESP 17; O2SAT 90
[2016-12-24] MEDS: Nystatin 100,000 Unit/Gm 15 Gm Powder TOPICAL SCH (20:21)
[2016-12-25 00:03] VITALS: BP 118/69; PULSE 81; RESP 17; O2SAT 90
[2016-12-25] MEDS: Sodium Chloride LOK Flush 10 mL Syringe IV SCH ×4 (00:30→08:26)
[2016-12-25] MEDS: 0.9% Sodium Chloride 1,000 ML IV SCH (04:18)
[2016-12-25 05:33] VITALS: BP 127/73; PULSE 73; RESP 17; O2SAT 96
--- NOTE | 2016-12-25 05:38 | NUR ---
Refusal of Care Pt refused q2hr turns, skin check done noted blanchable redness on coccyx, barrier cream applied, pt also refused briefs change on am rounds, despite reinforcement on risk of skin breakdown.
[2016-12-25 06:26] LABS: Mean Corpuscular Hemoglobin 30.1 pg (27.0-35.0); Mean Corpuscular Volume 92.3 fL (81-100)
[2016-12-25] MEDS ORDERED: CIPR-231 PO (08:11)
[2016-12-25] MEDS ORDERED: LINE600T2 PO (08:11)
--- NOTE | 2016-12-25 08:17 | PCM.DIMED ---
Discharge Instructions Date of Service Dec 25, 2016 Dates of Hospitalization Dec 13, 2016 at 20:39 Discharge Diagnosis Discharge Diagnosis # Acute cellulites/abscess of right leg, present on admission. Improving - Wound cultures positive for Group B Beta Strep, Enterobacter Cloacae, Corynebacterium Striatum, Staphylococcus Aureus with normal penny - post Right tibial abscess I&D, application of negative pressure therapy wound vacuum by Dr. Almonte on 12/14 - post Irrigation and debridement of right leg including the skin and subcutaneous tissue and fat and re-application of a BME Wound VAC by Dr. Bauer on 12/16 and again on 12/19 - post Washout of right leg wound, evacuation of subcutaneous seroma through the wound x2, and placement of VAC dressing by Dr. Alvarez on 12/21/16 # Acute on chronic microcytic anemia most likely secondary to multiple surgical procedures - post 2 units PRBC transfusion on 12/23/16 # Acute diarrhea. not present on admission - without any evidence of C. Difficile infection # Acute on chronic Hypocalcemia. present on admission. Resolving # COPD. stable # Neuropathy. chronic. stable # Lupus. chronic. stable # GERD # Allergic rhinitis Diet Low fat, Low Sodium, Heart Healthy, Diabetic Activity Limited until seen by PCP, Home Health Phyical Therapy Call your provider Fever or Chills, Shortness of breath, Bleeding, Chest pain, Vomitting, Excessive diarrhea, Other Patient Instructions Seek immediate medical attention if any new or worsening signs or symptoms occur. Follow-up plan 1. Followup at wound care center as planned 2. Followup with primary care provider in 3-5 days Follow-up Provider: Ellie Rabago Provider: Vic Alvarez MD, Masoud Dec 25, 2016 08:17
[2016-12-25] MEDS: Senna-Docusate 8.6-50 mg Tablet PO SCH ×2 (08:30)
[2016-12-25] MEDS: oxyCODONE ER 10 mg ER12 Tablet PO SCH (09:10)
[2016-12-25] MEDS: Nystatin 100,000 Unit/Gm 15 Gm Powder TOPICAL SCH (09:10)
[2016-12-25] MEDS: Fluticasone-Salmeterol 100-50 Inhaler INHALATION SCH (09:10)
[2016-12-25 09:28] VITALS: BP 131/76; PULSE 82; RESP 16; O2SAT 88
--- NOTE | 2016-12-25 10:29 | NUR ---
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 Updated [employer] and MOC unit
[2016-12-25] MEDS ORDERED: OXYC5TAB72 PO (11:26)
[2016-12-25] MEDS ORDERED: OXYC10TA69 PO (11:26)
--- NOTE | 2016-12-25 13:20 | NUR ---
Discharge Pt discharged at 1315. She was given discharge instructions and instructions for follow up care. She was given hard copy of prescriptions to take with her. She denied any questions at time of discharge. An appointment was set up for her at the wound care clinic for . She was given a card with this information. She left in possession of all of her belongings. She left in her own wheelchair. [facility] staff came and walked with the patient to the exit where she got into her van and would be headed home.
--- NOTE | 2016-12-25 13:36 | NUR ---
Social Work Discharge: Plan is home with HHC via [facility]. SW contacted [facility] rep Ruiz who was advised of discharge for today and was provided with face to face. C to be arranged for [facility] following discharge. UR specialist arranged for transport at 1pm for transfer home. SW attempted to coordinate outpt wound care follow up appointment for but patient has to coordinate transport upon discharge to follow up appointment. No other needs identified at this time. SW to follow. PLAN: Home with HHC via [facility] and transport home via [facility]
--- NOTE | 2016-12-25 14:10 | NUR ---
Wound Care Patient seen at bedside for NPWT dressing change with Dr Alvarez, Dressing seal remained intact thorough the weekend, on removal today wound edges are minimally undermined and no longer need white foam, wound base is granular. Wound is approx 15 cm L X 10 cm W x 1 cm D. Periwound skin is excoriated for 2 cm to medial border of the wound edge and 10 cms on the lateral edge of the wound. NPWT was reapplied at 125 mmHg and blackfoam with continuous therapy, a good seal was attained and a home going NPWT system was placed as pt to be discharged today. Pt has appt at wound center with Dr Alvarez 12/28/16.
--- NOTE | 2016-12-25 17:34 | PCM.DC.MED ---
Discharge Summary Date of Service Dec 25, 2016 Dates of Hospitalization Date of Hospital Admission Dec 13, 2016 at 20:39 Date of Discharge: Dec 25, 2016 Providers: Admitting Physician: Everardo Javier MD Primary Care Physician: Ellie Rabago Attending Physician: Everardo Javier MD Diagnosis at Time of Discharge Diagnosis at Time of Discharge # Acute cellulites/abscess of right leg, present on admission. Improving - Wound cultures positive for Group B Beta Strep, Enterobacter Cloacae, Corynebacterium Striatum, Staphylococcus Aureus with normal penny # Acute on chronic microcytic anemia most likely secondary to multiple surgical procedures - post 2 units PRBC transfusion on 12/23/16 # Acute diarrhea. not present on admission - without any evidence of C. Difficile infection # Acute on chronic Hypocalcemia. present on admission. Resolving # COPD. stable # Neuropathy. chronic. stable # Lupus. chronic. stable # GERD # Allergic rhinitis Consultations Orthopedics Infectious disease Plastic surgery Procedures XRay, CTs & MRIs Date of Service: 12/13/16 4878 PROCEDURE: X-RAY CHEST ONE VIEW, PORTABLE ([id number]) IMPRESSION: No acute cardiopulmonary disease Dictated by: Anthony Aldrich M.D. on 12/13/2016 at 19:48 Date of Service: 12/13/161999 PROCEDURE: CT TIBIA FIBULA RIGHT W/CONTRAST ([id number]) INDICATIONS: R leg abscess IMPRESSION: Possible rim-enhancing abscess in the anterior soft tissues at the mid tibial diaphyseal level, although unclear if this communicates with the skin surface. Please correlate with clinical exam findings Possible osteonecrosis/AVN involving the distal tibial diametaphysis. Please correlate clinically and with radiographs. Confirmation with ankle MRI could be performed as clinical warranted. Severe circumferential subcutaneous and soft tissue swelling in keeping with cellulitis. Dictated by: Anthony Aldrich M.D. on 12/13/2016 at 20:50 Invasive Procedures - post Right tibial abscess I&D, application of negative pressure therapy wound vacuum by Dr. Almonte on 12/14 - post Irrigation and debridement of right leg including the skin and subcutaneous tissue and fat and re-application of a BME Wound VAC by Dr. Bauer on 12/16 and again on 12/19 - post Washout of right leg wound, evacuation of subcutaneous seroma through the wound x2, and placement of VAC dressing by Dr. Alvarez on 12/21/16 Brief History As noted in H&P by Dr. Valentino: Patient is a 66 year old female with a hx of lupus, neuropathy, COPD, TIA, CVA presenting to the ED via EMS complaining of right leg pain and swelling worsened 5 days ago. The pain is on her right lower leg, usually a constant 7/ 10 in pain scale, currently mild given pain medications in the ED. Patient states she picked a scab off her anterior butler 2 days before the leg started to swell and became painful. Denies cough, SOB or fever. Swelling and redness has been there for 1.5 months, and patient was prescribed Bactrim which she took for 5 days with no significant change about one month ago prescribed by her PCP , Ellie JOSEPH. She denies being on immunosuppressants. In the ED, vitals 36.8, P92 RR20, BP98/60, 95% on RA. WBC 8.3 with lactic acid 1.7, ESR 51. Ortho, Dr. Almonte was consulted, patient seen. Patient admitted with plans for I&D in am. Hospital Course # Acute cellulitis/abscess/seroma of right leg, present on admission. Acute. Improving - Wound cultures positive for group B beta strep, Enterobacter Cloacae, corynebacterium striatum, Staphylococcus aureus with normal penny - appreciate ID, ortho and plastic surgery consults. will f/u w/ recs - post Right tibial abscess I&D, application of negative pressure therapy wound vacuum by Dr. Almonte on 12/14 - post Irrigation and debridement of right leg including the skin and subcutaneous tissue and fat and re-application of a BME Wound VAC by Dr. Bauer on 12/16 and again on 12/19 - post Washout of right leg wound, evacuation of subcutaneous seroma through the wound x2, and placement of VAC dressing by Dr. Alvarez on 12/21/16 - Dapto and ertapenem stopped on 12/22 after 10 days of therapy - c/w oral Cipro 500 p.o. b.i.d. and linezolid 600 p.o. b.i.d. for 7 more days - plan f/u at wound care on 11/27/16. wound vac was changed on day of d/ c and per wound nurse no need for additional treatment now. # Acute on chronic microcytic anemia most likely secondary to multiple surgical procedures - post 2 units PRBC on 12/23/16 with appropriate increase in h/h - no other source of active bleeding noted # Acute diarrhea. not present on admission. improved - stool pcr negative # Acute on chronic Hypocalcemia. poa (resolving) - 1 dose of calcium gluconate (12/18/16) responded well - calcium carbonate 3 times a day while in hospital - further f/u as outpatient # COPD. stable - continue home dose Advair # Neuropathy. chronic. stable - continue home dose gabapentin # Lupus. chronic. stable - continue to monitor - further f/u as outpatient # GERD - patient not on any medication for this # Allergic rhinitis - continue home cetirizine by day of d/c lungs CTA bilat. abdomen soft, nt, nd, +bs Exam Vital Signs (Last) Date Time Temp Pulse Resp B/P Pulse Ox O2 Delivery O2 Flow Rate FiO2 12/25/16 09:28 36.8 82 16 131/76 88 Nasal Cannula 3.00 Test 12/13/16 17:58 12/13/16 21:59 12/14/16 02:45 12/15/16 03:10 Magnesium Level 1.8mg/dL (1.6-2.6) Troponin T < 0.010ug/L (0.0-0.011) Urine Color Yellow (YELLOW) Urine Appearance Clear (CLEAR,HAZY) Urine pH 6.0 (5.0-8.0) Urine Specific [place] 1.010 (1.003-1.035) Urine Protein Negativemg/dL (NEG,TRACE) Urine Glucose (UA) Negativemg/dL (NEGATIVE) Urine Ketones Negativemg/dL (NEGATIVE) Urine Occult Blood Negative (NEGATIVE) Urine Nitrite Negative (NEGATIVE) Urine Bilirubin Negative (NEGATIVE) Urine Urobilinogen Normalmg/dL (NORMAL) Urine Leukocyte Esterase Negative (NEGATIVE) Urine RBC 0-2/hpf (0-2) Urine WBC 6-10/hpf (0-5) Urine Epithelial Cells Few/hpf (NONE-MOD) Urine Crystals None seen (NONE SEEN) Urine Bacteria None/hpf (NONE-FEW) Urine Hyaline Casts None/lpf (NONE) Urine Granular Casts None seen (NONE SEEN) Urine Waxy Casts None seen (NONE SEEN) Urine Red Blood Cell Casts None seen (NONE SEEN) Urine White Blood Cell Casts None seen (NONE SEEN) Urine Mucus None seen (None Seen) Urine Trichomonas None seen (NONE SEEN) Urine Yeast None (NONE SEEN) Urine Culture Reflexed Indicated Erythrocyte Sedimentation Rate 32mm/hr (0-40) Prothrombin Time 10.7sec (8.1-12.5) Prothromb Time International Ratio 1.00ratio Test 12/16/16 03:34 12/19/16 06:08 12/21/16 07:10 12/22/16 06:53 Lactic Acid Level 0.8mmol/L (0.4-2.0) Total Creatine Kinase 93U/L (21-215) Procalcitonin 0.27ng/mL (See Comment) Neutrophils (%) (Auto) 67.7% (40-74) Lymphocytes (%) (Auto) 16.1% (14-46) Monocytes (%) (Auto) 11.5% (4-12) Eosinophils (%) (Auto) 3.7% (0-5) Basophils (%) (Auto) 0.3% (0-3) Ionized Calcium 1.12mmol/L (1.17-1.32) Total Bilirubin 0.2mg/dL (0.0-1.2) Aspartate Amino Transf (AST/SGOT) 15U/L (0-50) Alanine Aminotransferase (ALT/SGPT) 6U/L (0-32) Alkaline Phosphatase 86U/L (25-165) Total Protein 4.8g/dL (6.4-8.4) Albumin 2.1g/dL (3.4-5.0) Test 12/24/16 07:30 12/25/16 06:03 Sodium Level 143mEq/L (134-144) Potassium Level 3.8mEq/L (3.5-5.2) Chloride Level 102mEq/L (97-108) Carbon Dioxide Level 27mmol/L (18-29) Blood Urea Nitrogen 6mg/dL (8-27) Creatinine 0.65mg/dL (0.57-1.00) Estimat Glomerular Filtration Rate 131mL/min (>59) Glucose Level 82mg/dL (60-99) Calcium Level 7.4mg/dL (8.5-10.1) White Blood Count 6.4th/mm3 (3.8-10.1) Red Blood Count 3.26mil/mm3 (3.90-5.20) Hemoglobin 9.8g/dL (12.0-15.6) Hematocrit 30.1% (35.0-46.0) Mean Corpuscular Volume 92.3fL (81-100) Mean Corpuscular Hemoglobin 30.1pg (27.0-35.0) Mean Corpuscular Hemoglobin Concent 32.6% (32.0-37.0) Red Cell Distribution Width 14.9% (12.3-15.4) Platelet Count 283bil/L (150-400) Discharge Medications Discharge Medications ([Loratadine]) 10 MG TABLET 10 MG PO DAILY Prescribed by: ALBERT GUERRA DO ([Senna/Docusate Sodium]) 1 TABLET TABLET 1 TABLET PO BID Prescribed by: ALBERT GUERRA DO Aspirin Chew (Aspirin Chew) 81 Mg Chew 81 MG PO DAILY (Reported) Ciprofloxacin (Cipro) 500 Mg Tablet 500 MG PO BID Prescribed by: PAT GARCIA MD Fluticasone Propionate (Flonase Allergy Relief) 50 Mcg/Actuation [place].susp 1 SPRAY NASAL QID (Reported) Furosemide (Furosemide) 20 Mg Tab 20 MG PO BID (Reported) Gabapentin (Gabapentin) 400 Mg Capsule 400 MG PO QID (Reported) Gabapentin (Neurontin) 400 Mg Capsule 400 MG PO QID Prescribed by: ALBERT GUERRA DO Linezolid (Zyvox) 600 Mg Tablet 600 MG PO BID Prescribed by: PAT GARCIA MD Multivitamin (Multivitamins) 1 Each Capsule 1 EACH PO DAILY (Reported) Oxycodone ER (Oxycontin) 10 Mg Tab.er.12h 10 MG PO BID Prescribed by: PAT GARCIA MD As needed Albuterol HFA (Proair HFA) 8.5 Gm Hfa.aer.ad 2 PUFFS INH Q4H PRN PRN For Shortness of Breath (Reported) Sennosides (Senna) 8.6 Mg Tablet 17.2 MG PO BID PRN PRN For Constipation Prescribed by: ALBERT GUERRA DO diphenhydrAMINE HCl (Benadryl) 25 Mg Capsule 25 MG PO Q4H PRN PRN For Itching Prescribed by: ALBERT GUERRA DO oxyCODONE (oxyCODONE) 5 Mg Tablet 5 MG PO Q4H PRN PRN For Moderate Pain Prescribed by: PAT GARCIA MD Followup Plan Disposition: Home with home health Follow-up plan 1. Followup at wound care center as planned 2. Followup with primary care provider in 3-5 days Discharge Diet: Low fat, Low Sodium, Heart Healthy, Diabetic Discharge Activity: Limited until seen by PCP, Home Health Phyical Therapy Patient Instructions Seek immediate medical attention if any new or worsening signs or symptoms occur. Follow-up Provider: Ellie Rabago Provider: Vic Alvarez MD Time spent 35 min copies to: Vic Alvarez MD; Rita Rabago Masoud Dec 25, 2016 17:34
[2016-12-26] MEDS ORDERED: diphenhydrAMINE 25 mg Capsule PO PRN (18:05)
[2016-12-26] MEDS ORDERED: Ondansetron 2 mg/mL 2 mL Inj IVPUSH PRN (18:10)
[2016-12-26] MEDS ORDERED: Alum-Mag Hydrox-Simeth 30 mL Suspension PO PRN (18:10)
[2016-12-26] MEDS ORDERED: Polyethylene Glycol (PEG) 17 Gm Powder PO PRN (18:10)
[2016-12-26] MEDS ORDERED: Albuterol 2.5 mg/3 mL Inhalation Solution NEB PRN (20:00)
[2016-12-26] MEDS ORDERED: oxyCODONE ER 10 mg ER12 Tablet PO SCH (20:30)
[2016-12-26] MEDS ORDERED: SENNA PO SCH (20:30)
[2016-12-26] MEDS ORDERED: DOCUSATE SODIUM PO SCH (20:30)
[2016-12-26] MEDS ORDERED: [UNRECOGNIZED DRUG - REMARK] NASAL SCH (21:30)
[2016-12-27] MEDS ORDERED: Sodium Chloride LOK Flush 10 mL Syringe IVFLUSH SCH (00:30)
[2016-12-27] MEDS ORDERED: Heparin 5,000 Unit/mL Inj SUBQ SCH (00:30)
[2016-12-27] MEDS ORDERED: [UNRECOGNIZED DRUG - OTHER] PO SCH (08:30)
[2016-12-27] MEDS ORDERED: Non-Formulary Medication (Multivitamin (Multivitamins) 1 EACH) PO SCH (08:30)
== END 2016-12-25 13:11 | disposition home health service (06) | DRG 571 ==
LOC: SED 16:13 → OSC 20:39 → PCC 21:44 → MOC 12-16 21:47
PROVIDERS: ADMIT Hospitalist; ATTEND Hospitalist
PROC: 0JBN0ZZ Excision of Right Lower Leg Subcutaneous Tissue and Fascia, Open Approach (ICD-10-PCS; principal; 2016-12-14 15:45)
PROC: 0JBN0ZZ Excision of Right Lower Leg Subcutaneous Tissue and Fascia, Open Approach (ICD-10-PCS; 2016-12-16)
PROC: 0JQN0ZZ Repair Right Lower Leg Subcutaneous Tissue and Fascia, Open Approach (ICD-10-PCS; 2016-12-16)
PROC: 0JBN0ZZ Excision of Right Lower Leg Subcutaneous Tissue and Fascia, Open Approach (ICD-10-PCS; 2016-12-18)
PROC: 0J9N0ZZ Drainage of Right Lower Leg Subcutaneous Tissue and Fascia, Open Approach (ICD-10-PCS; 2016-12-21)
PROC: 3E10X8Z Irrigation of Skin and Mucous Membranes using Irrigating Substance (ICD-10-PCS; 2016-12-21)
PROC: 30233N1 Transfusion of Nonautologous Red Blood Cells into Peripheral Vein, Percutaneous Approach (ICD-10-PCS; 2016-12-23)
DX: L02.415 Cutaneous abscess of right lower limb (principal); D62 Acute posthemorrhagic anemia; L76.34 Postprocedural seroma of skin and subcutaneous tissue following other procedure; L03.115 Cellulitis of right lower limb; B95.1 Streptococcus, group B, as the cause of diseases classified elsewhere; J44.9 Chronic obstructive pulmonary disease, unspecified; Z79.82 Long term (current) use of aspirin; G62.9 Polyneuropathy, unspecified; J30.9 Allergic rhinitis, unspecified; Z66 Do not resuscitate; F17.210 Nicotine dependence, cigarettes, uncomplicated; B95.61 Methicillin susceptible Staphylococcus aureus infection as the cause of diseases classified elsewhere; E83.51 Hypocalcemia; D63.8 Anemia in other chronic diseases classified elsewhere; Y83.8 Other surgical procedures as the cause of abnormal reaction of the patient, or of later complication, without mention of misadventure at the time of the procedure; R19.7 Diarrhea, unspecified

== ENCOUNTER 2016-12-26 14:26 | Observation (INO) | payer MEDICARE, MEDICAID ==
[~2016-12-26] VITALS: Ht 175.3 cm; Wt 76.6 kg
[2016-12-26] VITALS (7 sets, daily range): BP systolic 105–115; BP diastolic 51–69; PULSE 53–87; RESP 13–20; O2SAT 87–95
[~2016-12-26 14:26] MED LIST changes: +ALBU8.5H2 INH; -CETI10TA18 PO; -CHOL10008 PO; +CIPR-231 PO; +DIPH25CA6 PO; -DOCU250C7 PO; -FLUT16SP; +FLUT9.9S NASAL; -FOL1 PO; -FOLI-89 PO; +FUR20 PO; +GABA-504 PO; -IMO2 PO; -IPRA30SP; +LINE600T2 PO; +Loratadine PO; +MULT1CAP33 PO; -ONDANSETRON8ODT SL/PO; +OXYC10TA69 PO; +OXYC5TAB72 PO; -PHEN30SP4 NS; -ProAirHFA IH; +SENN-133 PO; -SENN15TA35 PO; +Senna/Docusate Sodium PO; -[UNRECOGNIZED DRUG - CODE] PO; -[UNRECOGNIZED DRUG - CODE] PO
--- NOTE | 2016-12-26 14:28 | ED.REPORT ---
HPI-General Illness Date of Service Dec 26, 2016 ED Provider: Walter Espinal MD The patient is a 66 year old female with history of lupus, neuropathy, COPD, TIA , CVA, and anemia, who presents to the emergency department by EMS. The patient was admitted from 12/13-12/25 for right lower extremity cellulitis. She was treated with Daptomycin and ertapenem and Cipro. Patient was discharged yesterday to home. She reports that her wound vac stopped working overnight, she feels that her leg is swollen. She reports weakness in that she feels unable to rise from a chair due to weakness in her knees. States that she cannot walk. Also complains of abdominal pain and diarrhea and dysuria. No other complaints. Nursing Notes Stated Complaint: RULING OUT UTI/CELLULITIS Nursing Notes Reviewed: Yes Allergies: Coded Allergies: No Known Allergies (Verified Allergy, Unknown, 12/13/16) Uncoded Allergies: HAYFEVER (Allergy, Unknown, 06/11/16) Scheduled ([Loratadine]) 10 MG TABLET 10 MG PO DAILY ([Senna/Docusate Sodium]) 1 TABLET TABLET 1 TABLET PO BID Aspirin Chew (Aspirin Chew) 81 Mg Chew 81 MG PO DAILY Calcium Carbonate (Calcium Carbonate) 200 Mg Tab.chew 500 MG PO TIDWM Ciprofloxacin (Cipro) 500 Mg Tablet 500 MG PO BID Fluticasone Propionate (Flonase Allergy Relief) 50 Mcg/Actuation [place].susp 1 SPRAY NASAL QID Furosemide (Furosemide) 20 Mg Tab 20 MG PO BID Gabapentin (Neurontin) 400 Mg Capsule 400 MG PO QID Linezolid (Zyvox) 600 Mg Tablet 600 MG PO BID Multivitamin (Multivitamins) 1 Each Capsule 1 EACH PO DAILY Nystatin (Nystatin) 20 Applic/15 Gm Oint 1 APPLIC TOPICAL BID Oxycodone ER (Oxycontin) 10 Mg Tab.er.12h 10 MG PO BID Scheduled PRN Albuterol HFA (Proair HFA) 8.5 Gm Hfa.aer.ad 2 PUFFS INH Q4H PRN PRN For Shortness of Breath Sennosides (Senna) 8.6 Mg Tablet 17.2 MG PO BID PRN PRN For Constipation diphenhydrAMINE HCl (Benadryl) 25 Mg Capsule 25 MG PO Q4H PRN PRN For Itching oxyCODONE (oxyCODONE) 5 Mg Tablet 5 MG PO Q4H PRN PRN For Moderate Pain General Time Seen by MD: 14:27 Chief Complaint Multip medical complaints Hx Obtained From: Patient, EMS Arrived By: Ambulance Recent Healthcare: Recent doctor visit, Recent hospitalization Similar Sx Previous: Yes Past Medical History Past Medical History Arthritis h/o pneumonia CVA 1989 COPD Lupus Cirrhosis Anemia TIA (1989) Osteoporosis Uropathy h/o rectovaginal fistula Tubal ligation Gastroesophogeal reflux Anemia Reports: Obesity Past Surgical History right carpal tunnel left hip repair orif l ankle Smoking History Smoker Current Status UNK Social History Hx of alcoholism Alcohol Use: Denies alcohol use Ambulatory Status Wheelchair Review of Systems General: Denies fever, chills, malaise. HEENT: Denies congestion, headache, sore throat. Respiratory: Denies dyspnea, cough, shortness of breath, wheezing. Cardiovascular: Denies chest pain, palpitations. Gastrointestinal: Denies vomiting, admits diarrhea, abdominal pain. Genitourinary: Admits dysuria Otherwise as noted in HPI. Complete sys rev & neg: except as marked. Physical Exam General: Ill-appearing, thin, no acute distress. Somnolent but arousable. Head: Atraumatic, normocephalic. Eyes: No scleral icterus or injection. No discharge. Vision grossly intact. ENT: Voice clear, hearing grossly intact. Respiratory: Regular rate and rhythm. Fine crackles in lung bases bilaterally Cardiovascular: Irregular irregular rate and rhythm, without murmur, gallop or rub. No pedal edema. Gastrointestinal: Abdomen diffusely tender guarding or rebound. Bowel sounds normoactive. Legs: Significant leg edema to mid thigh bilaterally. PT and DP pulses appreciated. Capillary refill less than 5 seconds Skin: Large area of cellulitis surrounding a area of debridement and dressed with a wound VAC. Significant amount of serous fluid is visible within the dressing. Wound VAC appears operable. Otherwise Warm and dry. Dry skin with thick scale on both legs. Neurological: Grossly nonfocal. Psychological: Alert and oriented. Speech appropriate, linear and logical. Vital Signs Vital Signs Date Time Temp Pulse Resp B/P Pulse Ox O2 Delivery O2 Flow Rate FiO2 12/26/16 16:08 80 15 105/53 94 Room Air 12/26/16 15:38 80 13 115/56 95 Room Air 12/26/16 14:42 77 20 107/51 92 Room Air 12/26/16 14:36 87 16 108/64 93 12/26/16 14:29 36.8 85 14 108/64 Room Air Initial VS: Reviewed, Vital signs normal Interpretation & Diagnostics Interpretation & Diagnostics: From recent admission: wound cultures positive for Group B Beta Strep, Enterobacter Cloacae, Corynebacterium Striatum, Staphylococcus Aures with normal penny - treated with Daptomycin and ertapenem, and oral Cipro and linezolid Lab Results Interpretation Result Diagram: 12/26/16 1528 12/27/16 0800 Test 12/26/16 15:20 12/26/16 15:28 Urine Color Straw (YELLOW) Urine Appearance Clear (CLEAR,HAZY) Urine pH 5.0 (5.0-8.0) Urine Specific [place] 1.010 (1.003-1.035) Urine Protein Negativemg/dL (NEG,TRACE) Urine Glucose (UA) Negativemg/dL (NEGATIVE) Urine Ketones Negativemg/dL (NEGATIVE) Urine Occult Blood Trace (NEGATIVE) Urine Nitrite Negative (NEGATIVE) Urine Bilirubin Negative (NEGATIVE) Urine Urobilinogen Normalmg/dL (NORMAL) Urine Leukocyte Esterase Negative (NEGATIVE) Urine RBC 0-2/hpf (0-2) Urine WBC 0-5/hpf (0-5) Urine Epithelial Cells Few/hpf (NONE-MOD) Urine Crystals None seen (NONE SEEN) Urine Bacteria None/hpf (NONE-FEW) Urine Hyaline Casts Occasional/lpf (NONE) Urine Granular Casts None seen (NONE SEEN) Urine Waxy Casts None seen (NONE SEEN) Urine Red Blood Cell Casts None seen (NONE SEEN) Urine White Blood Cell Casts None seen (NONE SEEN) Urine Mucus None seen (None Seen) Urine Trichomonas None seen (NONE SEEN) Urine Yeast None (NONE SEEN) Urinalysis Comment None Urine Culture Reflexed Not indicated Hold Urine Received (Received) White Blood Count 6.6th/mm3 (3.8-10.1) Red Blood Count 3.78mil/mm3 (3.90-5.20) Hemoglobin 11.4g/dL (12.0-15.6) Hematocrit 35.1% (35.0-46.0) Mean Corpuscular Volume 92.9fL (81-100) Mean Corpuscular Hemoglobin 30.2pg (27.0-35.0) Mean Corpuscular Hemoglobin Concent 32.5% (32.0-37.0) Red Cell Distribution Width 15.0% (12.3-15.4) Platelet Count 303bil/L (150-400) Neutrophils (%) (Auto) 73.6% (40-74) Lymphocytes (%) (Auto) 14.1% (14-46) Monocytes (%) (Auto) 8.0% (4-12) Eosinophils (%) (Auto) 3.6% (0-5) Basophils (%) (Auto) 0.2% (0-3) Lactic Acid Level 1.4mmol/L (0.4-2.0) Total Bilirubin 0.3mg/dL (0.0-1.2) Aspartate Amino Transf (AST/SGOT) 18U/L (0-50) Alanine Aminotransferase (ALT/SGPT) 8U/L (0-32) Alkaline Phosphatase 100U/L (25-165) Total Protein 6.3g/dL (6.4-8.4) Albumin 2.7g/dL (3.4-5.0) Re-Eval/Medical Decision Med Decision/Clinical Course From recent admission: wound cultures positive for Group B Beta Strep, Enterobacter Cloacae, Corynebacterium Striatum, Staphylococcus Aures with normal penny - treated with Daptomycin and ertapenem, and oral Cipro and linezolid 66-year-old woman discharged from the hospital yesterday for right leg cellulitis returns via EMS because her wound VAC appears to have malfunctioned, she notices increased right leg swelling and she feels weak, unable to walk. Physical exam her right leg dressing is fairly full of serous fluid about and the wound VAC does not appear to be functioning. The wound appears to be healing well however. The patient has an odd affect, and is somewhat somnolent though she is arousable, alert and oriented. Wound care nurse is mostly with the patient tells me this is her baseline. Her labs are reassuring. She does not feel fit to return home, and I am concerned she is not able to care for herself. I discussed the case with the hospitalist, who agreed to admitting the patient. Source of Hx: Old records, EMS Consultation #1: Note: Discussed case with wound care. Nurses familiar with the patient and states that her behavior is at baseline. He believes that the wound VAC has been dysfunctional for a significant period of time, he is going to test it and potentially change it out as well as the dressing. Consultation #2: Consulted With: Hospitalist Call Returned at: 17:06 Cell Tester: Accepts admit Counseled Regarding: Diagnosis, Lab results Discharge & Departure Primary Impression: Wound of right leg Encounter type: subsequent encounter Qualified Code: S81.801D - Unspecified open wound, right lower leg, subsequent encounter Disposition: ADMITTED TO HOSPITAL Discharge Condition All VS Reviewed: Yes Condition: Stable Referrals: Ellie Rabago (PCP) EDSupervising Provider for APC: Walter Espinal MD Scribe Attestation Portions of this note were transcribed by Carmel Buenrostro. Dr. Teddy Silvestre personally performed the history, physical exam and medical decision-making; I reviewed and confirmed the accuracy of the information in the transcribed note. Signed by: Alison Askew, 12/26/2016 and TIME. Attending Statement Attending attestation: I saw this patient in conjunction with Blue Kang PA-C. I agree with the workup, evaluation, treatment and disposition. Walter Espinal MD copies to: Ellie Rabago Beck O MD Dec 26, 2016 14:28 Carmel Buenrostro Dec 26, 2016 14:37 Blue Kang PA-C Dec 26, 2016 16:30 has been dysfunctional for a significant period of time, he is going to test it and potentially change it out as well as the dressing. Consultation #2: Consulted With: Hospitalist Call Returned at: 17:06 Cell Tester: Accepts admit Counseled Regarding: Diagnosis, Lab results Discharge & Departure Primary Impression: Wound of right leg Encounter type: subsequent encounter Qualified Code: S81.801D - Unspecified open wound, right lower leg, subsequent encounter Disposition: ADMITTED TO HOSPITAL Discharge Condition All VS Reviewed: Yes Condition: Stable Referrals: Ellie Rabago (PCP) EDSupervising Provider for APC: Walter Espinal MD Attestation Portions of this note were transcribed by Carmel Buenrostro. Dr. Teddy Silvestre personally performed the history, physical exam and medical decision-making; I reviewed and confirmed the accuracy of the information in the transcribed note. Signed by: Alison Askew, 12/26/2016 and TIME. Attending Statement Attending attestation: I saw this patient in conjunction with Blue Kang PA-C. I agree with the workup, evaluation, treatment and disposition. Walter Espinal MD copies to: Ellie Rabago Beck O MD Dec 26, 2016 14:28 Carmel Buenrostro Dec 26, 2016 14:37 Blue Kang PA-C Dec 26, 2016 16:30
[2016-12-26 15:45] LABS: BASOPHILS % (AUTO) 0.2 % (0-3); EOSINOPHILS % (AUTO) 3.6 % (0-5); Mean Corpuscular Hemoglobin 30.2 pg (27.0-35.0); Mean Corpuscular Volume 92.9 fL (81-100); NEUTROPHILS % (AUTO) 73.6 % (40-74); Platelet Count 303 bil/L (150-400)
--- NOTE | 2016-12-26 17:23 | NUR ---
Wound Consulted by ED, 66 yo female discharged home from [facility] 12/25/16 with home going NPWT and HH. NPWT dressing is overcome with serous drainage and the units battery is o presentation to the ED today. Dressing was removed TC to Dr Alvarez decision made to dc NPWT for the time being and instead return to a compressive dressing, Right anterior lower leg wound measures 14 cm L x 6 cm W x 0.8 cm D, periwound skin is excoriated almost circumferentially. Wound was cleaned with saline. Leg is edematous, pulses are palpable. Redressed wound with Calmoseptine to periwound skin, Abd pads , Kerlix wrap, compression bandaging and coban. Will change dressing again tomorrow. Dr Alvarez will check on patient once admitted later in the week.
--- NOTE | 2016-12-26 18:23 | PCM.HPMED ---
Subjective Date of Service Dec 26, 2016 Primary Provider: Admitting Physician: Primary Care Physician: Ellie Rabago Attending Physician: Admit Status: From the Emergency Department, 23-Hour Observation Chief Complaint: Patient was sent home yesterday and was not doing well at home History of Present Illness: This is a 66-year-old female who was sent home yesterday for acute cellulitis abscess of her right leg cultures were positive for group B beta strep Enterobacter cloacae corneal bacterium striatum and Staphylococcus aureus with normal penny. She was not doing well at home having issues with functioning and presents back here for placement. There is also question whether her wound VAC is working appropriately. Wound care I did see her down in the emergency room. He does like she is unable to walk at home. We see that discharge summary for details. Review of Systems: Review of systems are reviewed and are negative except for as in history of present illness Allergies Coded Allergies: No Known Allergies (Verified Allergy, Unknown, 12/13/16) Uncoded Allergies: HAYFEVER (Allergy, Unknown, 06/11/16) Home Medications Scheduled ([Loratadine]) 10 MG TABLET 10 MG PO DAILY ([Senna/Docusate Sodium]) 1 TABLET TABLET 1 TABLET PO BID Aspirin Chew (Aspirin Chew) 81 Mg Chew 81 MG PO DAILY Ciprofloxacin (Cipro) 500 Mg Tablet 500 MG PO BID Fluticasone Propionate (Flonase Allergy Relief) 50 Mcg/Actuation [place].susp 1 SPRAY NASAL QID Furosemide (Furosemide) 20 Mg Tab 20 MG PO BID Gabapentin (Gabapentin) 400 Mg Capsule 400 MG PO QID Gabapentin (Neurontin) 400 Mg Capsule 400 MG PO QID Linezolid (Zyvox) 600 Mg Tablet 600 MG PO BID Multivitamin (Multivitamins) 1 Each Capsule 1 EACH PO DAILY Oxycodone ER (Oxycontin) 10 Mg Tab.er.12h 10 MG PO BID Scheduled PRN Albuterol HFA (Proair HFA) 8.5 Gm Hfa.aer.ad 2 PUFFS INH Q4H PRN PRN For Shortness of Breath Sennosides (Senna) 8.6 Mg Tablet 17.2 MG PO BID PRN PRN For Constipation diphenhydrAMINE HCl (Benadryl) 25 Mg Capsule 25 MG PO Q4H PRN PRN For Itching oxyCODONE (oxyCODONE) 5 Mg Tablet 5 MG PO Q4H PRN PRN For Moderate Pain PMH Past Medical History Arthritis h/o pneumonia CVA 1989 COPD Lupus Cirrhosis Anemia TIA (1989) Osteoporosis Uropathy h/o rectovaginal fistula Tubal ligation Gastroesophogeal reflux Anemia Reports: Obesity Past Surgical History right carpal tunnel left hip repair orif l ankle Social History Hx Alcohol Use: No Hx Substance Use: No Hx Tobacco Use: No Smoking Status: Smoker Current Status UNK Living Arrangement: Alone Exam Vital Signs Vital Sign - Last Date Time Temp Pulse Resp B/P Pulse Ox O2 Delivery O2 Flow Rate FiO2 12/26/16 16:08 80 15 105/53 94 Room Air 12/26/16 14:29 36.8 Exam Constitutional elderly appearing woman. Head: Normocephalic atraumatic Eyes: PERRLA DC EOMI Neck: No adenopathy Chest: Clear to auscultation Cor: Irregular irRegular rate and rhythm S1-S2 Abdomen: Soft nontender Extremities: Right leg is wrapped left is 1+ edema with chronic venous stasis changes noted Psych: Unable to assess Skin as above Neuro she is arousable but does not answer questions appropriately does oriented to self Lab and Diagnostics Labs Laboratory Tests 72 Hours Test 12/26/16 15:20 12/26/16 15:28 Hold Urine Received (Received) White Blood Count 6.6th/mm3 (3.8-10.1) Red Blood Count 3.78mil/mm3 (3.90-5.20) Hemoglobin 11.4g/dL (12.0-15.6) Hematocrit 35.1% (35.0-46.0) Mean Corpuscular Volume 92.9fL (81-100) Mean Corpuscular Hemoglobin 30.2pg (27.0-35.0) Mean Corpuscular Hemoglobin Concent 32.5% (32.0-37.0) Red Cell Distribution Width 15.0% (12.3-15.4) Platelet Count 303bil/L (150-400) Neutrophils (%) (Auto) 73.6% (40-74) Lymphocytes (%) (Auto) 14.1% (14-46) Monocytes (%) (Auto) 8.0% (4-12) Eosinophils (%) (Auto) 3.6% (0-5) Basophils (%) (Auto) 0.2% (0-3) Sodium Level 141mEq/L (134-144) Potassium Level 3.0mEq/L (3.5-5.2) Chloride Level 99mEq/L (97-108) Carbon Dioxide Level 27mmol/L (18-29) Blood Urea Nitrogen 5mg/dL (8-27) Creatinine 0.63mg/dL (0.57-1.00) Estimat Glomerular Filtration Rate 136mL/min (>59) Glucose Level 75mg/dL (60-99) Lactic Acid Level 1.4mmol/L (0.4-2.0) Calcium Level 7.7mg/dL (8.5-10.1) Total Bilirubin 0.3mg/dL (0.0-1.2) Aspartate Amino Transf (AST/SGOT) 18U/L (0-50) Alanine Aminotransferase (ALT/SGPT) 8U/L (0-32) Alkaline Phosphatase 100U/L (25-165) Total Protein 6.3g/dL (6.4-8.4) Albumin 2.7g/dL (3.4-5.0) Result Diagram: 12/26/16 1528 12/26/16 1528 Assessment & Plan #Acute cellulitis with abscess and wound VAC, acute, present on admission Continue with antibiotics as recommended at discharge which includes Cipro and linezolid Consult wound care did see her in the ER # Placement We will get a social insurance administrator case management consultation for safe placement. # DVT prophylaxis We will use of subcutaneous prophylactic anticoagulation #. CODE STATUS full code Time spent 40 minutes Patricia Raya MD Dec 26, 2016 18:23
[2016-12-26] MEDS ORDERED: Polyethylene Glycol (PEG) 17 Gm Powder PO PRN (18:25)
[2016-12-26] MEDS ORDERED: Ondansetron 2 mg/mL 2 mL Inj IVPUSH PRN (18:25)
[2016-12-26] MEDS ORDERED: Alum-Mag Hydrox-Simeth 30 mL Suspension PO PRN (18:25)
[2016-12-26 18:30] LABS: APPEARANCE,URINE CLEAR (CLEAR,HAZY); COLOR,URINE STRAW (YELLOW); OCCULT BLOOD,URINE TRACE (NEGATIVE); UROBILINOGEN,URINE NORMAL (NORMAL)
[2016-12-26] MEDS ORDERED: diphenhydrAMINE 25 mg Capsule PO PRN (18:30)
[2016-12-26] MEDS ORDERED: Albuterol 2.5 mg/3 mL Inhalation Solution NEB PRN (20:00)
[2016-12-26] MEDS: Senna-Docusate 8.6-50 mg Tablet PO SCH (20:30)
[2016-12-26] MEDS: oxyCODONE ER 10 mg ER12 Tablet PO SCH (21:23)
[2016-12-26] MEDS: Fluticasone 0.05% 15 Spray/2 Gm 16 Gm Nasal Spray NASAL SCH (21:30)
--- NOTE | 2016-12-26 21:31 | NUR ---
Admission to [facility] Pt c/o right leg pain. Her right leg is wrapped in coban. Elevated on pillow. Pt rates her pain at a "12". Given pain medication. Pt also has a oxygen sat of 86% on RA. Started oxygen at 1LNC to increase oxygen sat to 92% Pt has an excoriated deepali area and irritated skin to her right hip. Applied camoseptime. Brief in place. Pt understands use of call light. She is bedrest at present time. Care ongoing
--- NOTE | 2016-12-26 21:56 | NUR ---
Case Management: NAEEM explained to patient at 2135, all questions answered. Signed original in chart, copy given to patient. Yue Blevins RN
--- NOTE | 2016-12-26 22:07 | NUR ---
PIV IV therapy unable to obtain IV access MD approves of NO iv placement at this time.
--- NOTE | 2016-12-26 22:08 | NUR ---
SCDs Pt refuses scds.
[2016-12-26] MEDS ORDERED: Potassium Chloride 20 mEq SR Tablet PO ONE (22:15)
[2016-12-27 01:04] VITALS: BP 100/58; PULSE 76; RESP 16; O2SAT 99
--- NOTE | 2016-12-27 05:10 | NUR ---
Pain Pt c/o 08/28 RT leg pain without distress, shortness of breath, anxiousness or tearfulness noted. Pt continued to lie in bed with her eyes closed without facial grimacing. Oxycodone given and upon reassessment the Pt appears to be asleep. No s/sx of distress noted at this time. Will continue to monitor for discomfort.
[2016-12-27 05:50] VITALS: BP 105/66; PULSE 73; RESP 20; O2SAT 92
[2016-12-27] MEDS: Fluticasone 0.05% 15 Spray/2 Gm 16 Gm Nasal Spray NASAL SCH ×3 (06:07→16:30)
[2016-12-27] MEDS: Senna-Docusate 8.6-50 mg Tablet PO SCH (08:30)
[2016-12-27 08:50] LABS: Magnesium 1.2 mg/dL (1.6-2.6)
[2016-12-27] MEDS: oxyCODONE ER 10 mg ER12 Tablet PO SCH (08:59)
--- NOTE | 2016-12-27 09:06 | NUR ---
Gave access and faxed facesheet to [facility], [facility] and [employer]. Patient would have benefited from snf upon discharge of last admission and refused. Patient should discharge today pending acceptance. Spoke with Kamila at [facility] and she has female beds available today. Addendum: 12/27/16 at 1040 by HONORIO CONTRERAS [facility] can accept patient when ready with to follow. Kamila is checking to see if there is wound vac in house for patient. Updated POSTDOCTORAL SCIENTIST
--- NOTE | 2016-12-27 11:46 | NUR ---
Wound Pt seen at bedside for dressing change at right lower extremity, Moderate serous drainage on dressing removed today,no odor. Periwound skin continues to be excoriated and denuded of epithelium on the medial side greater than the lateral side. Wound is cleaned with saline and gauze and then calmoseptine applied to periwound skin, abd pads (3) to cover, Kerlix (2) to wrap then jagjit wrap from toes to knee. This dressing can be changed daily, would recommend follow up with Dr Alvarez at wound center.
[2016-12-27 12:23] VITALS: BP 96/55; PULSE 93; RESP 18; O2SAT 92
[2016-12-27] MEDS ORDERED: Magnesium Sulf 2 Gm/50mL Water 2 GM in IV Premix 1 EACH IV ONE (12:25)
[2016-12-27] MEDS ORDERED: Potassium Chloride 20 mEq SR Tablet PO ONE (12:25)
[2016-12-27 12:27] VITALS: BP 96/55
--- NOTE | 2016-12-27 12:48 | NUR ---
Social Work Initial Assessment: Patient is a 66 year old female admitted for Right Leg Cellulitis. Pt is Medicare with [facility] supplement. PCP is OPAL Pedro. NOK Is Dereck Rodriguez, pardeep, . Advanced directives on chart. Readmit score not entered at this time. Pt lives at home in an apartment, alone. She has a powerchair and walker for ambulation. Patient current with [facility] and she has [facility] caregiving for 3 hours/day on Sunday and . Patient assigned pillowcase sewer is Belgica Nunez ([phone]). SW contacted [facility] and advised her of discharge. SW discussed discharge options with patient and patient states being in agreement to SNF placement at any in network SNF. SNF choice list offered and declined. Patient accepted at [facility], . Patient aware and in agreement. SW contacted and left voice mail message for patient son Dereck, advising him of transfer. Wound care team coordinated outpt wound care follow up appointment tomorrow at 2:30pm via MD Alvarez. SW advised [facility] of wound care appointment and states facility to coordinate transport tomorrow to outpt appointment. SW to fax discharge paperwork to facility and to coordinate transport to facility. SW to follow. PLAN: Transfer to rehab at [facility] ([facility] Higgins) today with outpt wound care follow up appointment tomorrow at 2:30 GIleana YUN Addendum: 12/27/16 at 1314 by ALBAN LUIS Amended: Links added.
--- NOTE | 2016-12-27 12:58 | NUR ---
Patient discharging to [facility] with to follow and they will transport at 1500. Updated POLITICAL SCIENTIST Addendum: 12/27/16 at 1439 by HONORIO CONTRERAS Arranged BLS transport for 1700 via [facility] Patricio POLITICAL SCIENTIST
[2016-12-27] MEDS ORDERED: MYCO TOPICAL (12:59)
[2016-12-27] MEDS ORDERED: OXYC5TAB72 PO (12:59)
[2016-12-27] MEDS ORDERED: LINE600T2 PO (12:59)
[2016-12-27] MEDS ORDERED: CIPR-231 PO (12:59)
[2016-12-27] MEDS ORDERED: OXYC10TA69 PO (12:59)
--- NOTE | 2016-12-27 13:04 | PCM.DIMED ---
Discharge Instructions Date of Service Dec 27, 2016 Dates of Hospitalization Dec 26, 2016 at 19:06 Discharge Diagnosis Discharge Diagnosis # Failure to thrive at home # Recent history of cellulites/abscess of right leg, present on admission. Improving - Wound cultures positive for Group B Beta Strep, Enterobacter Cloacae, Corynebacterium Striatum, Staphylococcus Aureus with normal penny - post Right tibial abscess I&D, application of negative pressure therapy wound vacuum by Dr. Almonte on 12/14 - post Irrigation and debridement of right leg including the skin and subcutaneous tissue and fat and re-application of a BME Wound VAC by Dr. Bauer on 12/16 and again on 12/19 - post Washout of right leg wound, evacuation of subcutaneous seroma through the wound x2, and placement of VAC dressing by Dr. Alvarez on 12/21/16 # Acute on chronic microcytic anemia most likely secondary to multiple surgical procedures. stable. - post 2 units PRBC transfusion on 12/23/16 # Acute on chronic Hypocalcemia. present on admission. ongoing # COPD. stable # Neuropathy. chronic. stable # Lupus. chronic. stable # GERD. stable. # Allergic rhinitis. stable. Diet Low fat, Low Sodium, Heart Healthy Activity Other (per physical therapy) Patient Instructions continue with wound care as per wound nurse and clinic instructions Follow-up plan 1. Followup with Dr. Alvarez at wound care center tomorrow 12/28/16 at 2:30 PM 2. Followup with primary care provider in 5-7 days Follow-up Provider: Ellie Rabago Provider: Vic Alvarez MD, Masoud Dec 27, 2016 13:04
[2016-12-27] MEDS ORDERED: CALC500T53 PO (13:05)
[2016-12-27 16:57] VITALS: BP 106/64
--- NOTE | 2016-12-27 17:11 | NUR ---
pain//refusing turns/discharge This morning pt c/o 10/10 pain to RLE during dressing change, pt given scheduled oxycontin and 5mg po oxycodone, pt reports pain "much better" down to 7/10 after medication. Pt has been sleeping on and off all day, drowsy but arouses easily to voice. 0/10 via FELDT scale. commissioning agent changed dressing to RLE today. This RN (service writer) applied nystatin to under breasts and calmoseptine cream to groin folds and redness on buttocks/hip. Encouraged turning q2hr to prevent skin breakdown but pt refuses despite education. Orders to discharge pt to [facility], pt was given Mag rider as ordered and po potassium and tums per orders. IV d/c'd intact. Called report to receiving nurse Kanwal at [facility]. Pt picked up via BLS stretcher transport and transferred to [facility] at 1700 in stable condition with 1LO2. Transferred with all belongings.
--- NOTE | 2016-12-27 18:01 | PCM.DC.MED ---
Discharge Summary Date of Service Dec 27, 2016 Dates of Hospitalization Date of Hospital Admission Dec 26, 2016 at 19:06 Date of Discharge: Dec 27, 2016 Providers: Admitting Physician: Patricia Raya MD Primary Care Physician: Ellie Rabago Attending Physician: Patricia Raya MD Diagnosis at Time of Discharge Diagnosis at Time of Discharge # Failure to thrive at home # Recent history of cellulites/abscess of right leg, present on admission. Improving - Wound cultures positive for Group B Beta Strep, Enterobacter Cloacae, Corynebacterium Striatum, Staphylococcus Aureus with normal penny - post Right tibial abscess I&D, application of negative pressure therapy wound vacuum by Dr. Almonte on 12/14 - post Irrigation and debridement of right leg including the skin and subcutaneous tissue and fat and re-application of a BME Wound VAC by Dr. Bauer on 12/16 and again on 12/19 - post Washout of right leg wound, evacuation of subcutaneous seroma through the wound x2, and placement of VAC dressing by Dr. Alvarez on 12/21/16 # Acute on chronic microcytic anemia most likely secondary to multiple surgical procedures. stable. - post 2 units PRBC transfusion on 12/23/16 # Acute on chronic Hypocalcemia. present on admission. ongoing # COPD. stable # Neuropathy. chronic. stable # Lupus. chronic. stable # GERD. stable. # Allergic rhinitis. stable. Brief History As noted in H&P by Dr. Raya: This is a 66-year-old female who was sent home yesterday for acute cellulitis abscess of her right leg cultures were positive for group B beta strep Enterobacter cloacae corneal bacterium striatum and Staphylococcus aureus with normal penny. She was not doing well at home having issues with functioning and presents back here for placement. There is also question whether her wound VAC is working appropriately. Wound care I did see her down in the emergency room. He does like she is unable to walk at home. We see that discharge summary for details. Hospital Course # Acute cellulitis with abscess and wound VAC, acute, present on admission - she was seen by wound care nurse who stoppled wound Vac. - plan is for pt to f/u at wound care clinic tomorrow for further evaluation by plastic surgery (Dr. Alvarez) - Continue with antibiotics with Cipro and linezolid as was recommended before # Placement - pt to transfer to SNF # Acute cellulitis/abscess/seroma of right leg, present on admission. Acute. Improving - Wound cultures positive for group B beta strep, Enterobacter Cloacae, corynebacterium striatum, Staphylococcus aureus with normal penny - appreciate ID, ortho and plastic surgery consults. will f/u w/ recs - post Right tibial abscess I&D, application of negative pressure therapy wound vacuum by Dr. Almonte on 12/14 - post Irrigation and debridement of right leg including the skin and subcutaneous tissue and fat and re-application of a BME Wound VAC by Dr. Bauer on 12/16 and again on 12/19 - post Washout of right leg wound, evacuation of subcutaneous seroma through the wound x2, and placement of VAC dressing by Dr. Alvarez on 12/21/16 - Dapto and ertapenem stopped on 12/22 after 10 days of therapy - c/w oral Cipro 500 p.o. b.i.d. and linezolid 600 p.o. b.i.d. for 6 more days - plan f/u at wound care on 11/27/16. # COPD. stable - continue home dose Advair # Neuropathy. chronic. stable - continue home dose gabapentin # Lupus. chronic. stable - continue to monitor - further f/u as outpatient # GERD - patient not on any medication for this # Allergic rhinitis - continue home cetirizine by day of d/c lungs CTA bilat. abdomen soft, nt, nd, +bs Exam Vital Signs (Last) Date Time Temp Pulse Resp B/P Pulse Ox O2 Delivery O2 Flow Rate FiO2 12/27/16 16:57 106/64 12/27/16 12:27 1.00 12/27/16 12:23 93 18 92 Test 12/26/16 15:20 12/26/16 15:28 12/27/16 08:00 Urine Color Straw (YELLOW) Urine Appearance Clear (CLEAR,HAZY) Urine pH 5.0 (5.0-8.0) Urine Specific [place] 1.010 (1.003-1.035) Urine Protein Negativemg/dL (NEG,TRACE) Urine Glucose (UA) Negativemg/dL (NEGATIVE) Urine Ketones Negativemg/dL (NEGATIVE) Urine Occult Blood Trace (NEGATIVE) Urine Nitrite Negative (NEGATIVE) Urine Bilirubin Negative (NEGATIVE) Urine Urobilinogen Normalmg/dL (NORMAL) Urine Leukocyte Esterase Negative (NEGATIVE) Urine RBC 0-2/hpf (0-2) Urine WBC 0-5/hpf (0-5) Urine Epithelial Cells Few/hpf (NONE-MOD) Urine Crystals None seen (NONE SEEN) Urine Bacteria None/hpf (NONE-FEW) Urine Hyaline Casts Occasional/lpf (NONE) Urine Granular Casts None seen (NONE SEEN) Urine Waxy Casts None seen (NONE SEEN) Urine Red Blood Cell Casts None seen (NONE SEEN) Urine White Blood Cell Casts None seen (NONE SEEN) Urine Mucus None seen (None Seen) Urine Trichomonas None seen (NONE SEEN) Urine Yeast None (NONE SEEN) Urinalysis Comment None Urine Culture Reflexed Not indicated Hold Urine Received (Received) White Blood Count 6.6th/mm3 (3.8-10.1) Red Blood Count 3.78mil/mm3 (3.90-5.20) Hemoglobin 11.4g/dL (12.0-15.6) Hematocrit 35.1% (35.0-46.0) Mean Corpuscular Volume 92.9fL (81-100) Mean Corpuscular Hemoglobin 30.2pg (27.0-35.0) Mean Corpuscular Hemoglobin Concent 32.5% (32.0-37.0) Red Cell Distribution Width 15.0% (12.3-15.4) Platelet Count 303bil/L (150-400) Neutrophils (%) (Auto) 73.6% (40-74) Lymphocytes (%) (Auto) 14.1% (14-46) Monocytes (%) (Auto) 8.0% (4-12) Eosinophils (%) (Auto) 3.6% (0-5) Basophils (%) (Auto) 0.2% (0-3) Lactic Acid Level 1.4mmol/L (0.4-2.0) Total Bilirubin 0.3mg/dL (0.0-1.2) Aspartate Amino Transf (AST/SGOT) 18U/L (0-50) Alanine Aminotransferase (ALT/SGPT) 8U/L (0-32) Alkaline Phosphatase 100U/L (25-165) Total Protein 6.3g/dL (6.4-8.4) Albumin 2.7g/dL (3.4-5.0) Sodium Level 139mEq/L (134-144) Potassium Level 3.5mEq/L (3.5-5.2) Chloride Level 97mEq/L (97-108) Carbon Dioxide Level 28mmol/L (18-29) Blood Urea Nitrogen 4mg/dL (8-27) Creatinine 0.57mg/dL (0.57-1.00) Estimat Glomerular Filtration Rate 152mL/min (>59) Glucose Level 70mg/dL (60-99) Calcium Level 6.8mg/dL (8.5-10.1) Magnesium Level 1.2mg/dL (1.6-2.6) Discharge Medications Discharge Medications ([Loratadine]) 10 MG TABLET 10 MG PO DAILY Prescribed by: ALBERT GUERRA DO ([Senna/Docusate Sodium]) 1 TABLET TABLET 1 TABLET PO BID Prescribed by: ALBERT GUERRA DO Aspirin Chew (Aspirin Chew) 81 Mg Chew 81 MG PO DAILY (Reported) Calcium Carbonate (Calcium Carbonate) 200 Mg Tab.chew 500 MG PO TIDWM Prescribed by: PAT GARCIA MD Ciprofloxacin (Cipro) 500 Mg Tablet 500 MG PO BID Prescribed by: PAT GARCIA MD Fluticasone Propionate (Flonase Allergy Relief) 50 Mcg/Actuation [place].susp 1 SPRAY NASAL QID (Reported) Furosemide (Furosemide) 20 Mg Tab 20 MG PO BID (Reported) Gabapentin (Neurontin) 400 Mg Capsule 400 MG PO QID Prescribed by: ALBERT GUERRA DO Linezolid (Zyvox) 600 Mg Tablet 600 MG PO BID Prescribed by: PAT GARCIA MD Multivitamin (Multivitamins) 1 Each Capsule 1 EACH PO DAILY (Reported) Nystatin (Nystatin) 20 Applic/15 Gm Oint 1 APPLIC TOPICAL BID Prescribed by: PAT GARCIA MD Oxycodone ER (Oxycontin) 10 Mg Tab.er.12h 10 MG PO BID Prescribed by: PAT GARCIA MD As needed Albuterol HFA (Proair HFA) 8.5 Gm Hfa.aer.ad 2 PUFFS INH Q4H PRN PRN For Shortness of Breath (Reported) Sennosides (Senna) 8.6 Mg Tablet 17.2 MG PO BID PRN PRN For Constipation Prescribed by: ALBERT GUERRA DO diphenhydrAMINE HCl (Benadryl) 25 Mg Capsule 25 MG PO Q4H PRN PRN For Itching Prescribed by: ALBERT GUERRA DO oxyCODONE (oxyCODONE) 5 Mg Tablet 5 MG PO Q4H PRN PRN For Moderate Pain Prescribed by: PAT GARCIA MD Followup Plan Disposition: SNF Follow-up plan 1. Followup with Dr. Alvarez at wound care center tomorrow 12/28/16 at 2:30 PM 2. Followup with primary care provider in 5-7 days Discharge Diet: Low fat, Low Sodium, Heart Healthy Discharge Activity: Other (per physical therapy) Patient Instructions continue with wound care as per wound nurse and clinic instructions Follow-up Provider: Ellie Rabago Provider: Vic Alvarez MD Time spent 30 min copies to: Vic Alvarez MD; Ellie Rabago Masoud Dec 27, 2016 18:01
== END 2016-12-27 17:00 ==
LOC: SED 14:26 → OSC 19:06
PROVIDERS: ADMIT Specialist; ATTEND Specialist
DX: R62.7 Adult failure to thrive (principal); Z60.2 Problems related to living alone; L97.219 Non-pressure chronic ulcer of right calf with unspecified severity; L03.115 Cellulitis of right lower limb; B95.1 Streptococcus, group B, as the cause of diseases classified elsewhere; D50.9 Iron deficiency anemia, unspecified; E83.51 Hypocalcemia; J44.9 Chronic obstructive pulmonary disease, unspecified; G62.9 Polyneuropathy, unspecified; M32.9 Systemic lupus erythematosus, unspecified; J30.9 Allergic rhinitis, unspecified
CPT/HCPCS: 29581; 36415; 80048; 80053; 81000; 83605; 83735; 85025; 94799; 99285; G0378; J1650

== ENCOUNTER 2017-01-10 15:08 | Inpatient (IN) | payer MEDICARE, MEDICAID ==
[~2017-01-10] VITALS: Ht 175.3 cm; Wt 80.4 kg
[2017-01-10] VITALS (12 sets, daily range): BP systolic 71–126; BP diastolic 47–109; PULSE 91–130; RESP 12–24; O2SAT 94–100
[~2017-01-10 15:08] MED LIST changes: +CALC500T53 PO; -GABA-504 PO; +MYCO TOPICAL
--- NOTE | 2017-01-10 15:15 | ED.REPORT ---
HPI-General Illness Date of Service Jan 10, 2017 ED Provider: Walter Espinal MD The patient is a 66 year old female with history of CVA, COPD, cirrhosis, anemia , and GERD, who was brought to the emergency department by EMS from [facility] for hypotension. The patient has experienced abdominal pain, nausea, vomiting, and diarrhea, for the last 3 days. The patient is currently residing at [facility] for a right lower leg wound. She has been on antibiotics for about 1 week. History is somewhat difficult to obtain due to the patient's condition. Nursing Notes Stated Complaint: ALTERED LOC Chief Complaint: General Complaint Nursing Notes Reviewed: Yes Allergies: Coded Allergies: No Known Allergies (Verified Allergy, Unknown, 01/10/17) Uncoded Allergies: HAYFEVER (Allergy, Unknown, 06/11/16) Scheduled Alendronate Sodium (Fosamax) 70 Mg Tablet 70 MG PO WEEKLY SUNDAYS Aspirin Chew (Aspirin Chew) 81 Mg Chew 81 MG PO DAILY Bisacodyl (Dulcolax) 5 Mg Tablet.dr 5 MG PO BID Calcium Carbonate (Calcium Carbonate) 200 Mg Tab.chew 500 MG PO TIDWM Cholecalciferol (Vitamin D3) (Vitamin D3) 1,000 Unit Tab.chew 1,000 UNIT PO DAILY Fluticasone/Salmeterol (Advair 250-50 Diskus) 60 Puff/Inh Disk 1 PUFF IH BID Furosemide (Furosemide) 20 Mg Tab 20 MG PO BIDAC Gabapentin (Neurontin) 400 Mg Capsule 400 MG PO QID Loratadine (Claritin) 10 Mg Capsule 10 MG PO DAILY Multivitamin (Multivitamins) 1 Each Capsule 1 EACH PO DAILY Oxycodone ER (Oxycontin) 10 Mg Tab.er.12h 10 MG PO BID Scheduled PRN Acetaminophen (Acetaminophen) 325 Mg Capsule 650 MG PO Q4 PRN PRN For Pain Albuterol HFA (Proair HFA) 8.5 Gm Hfa.aer.ad 2 PUFFS INH Q4H PRN PRN For Shortness of Breath Ondansetron (Ondansetron) 4 Mg Tablet 4 MG PO Q8H PRN PRN For Nausea Sennosides (Senna) 8.6 Mg Tablet 17.2 MG PO BID PRN PRN For Constipation diphenhydrAMINE HCl (Benadryl) 25 Mg Capsule 25 MG PO Q4H PRN PRN For Itching oxyCODONE (oxyCODONE) 5 Mg Tablet 5 MG PO Q4H PRN PRN For Moderate Pain General Time Seen by MD: 15:14 Chief Complaint Other (hypotension) Hx Obtained From: Patient (limited), EMS Arrived By: Ambulance Sudden in Onset?: No Onset Occurred: 3 days ago Symptom Duration: Since onset Location: : Abdomen Quality: Painful Severity: Current: Moderate Severity: Maximum: Severe Recent Healthcare: Recent doctor visit Similar Sx Previous: No Past Medical History Past Medical History Arthritis h/o pneumonia CVA 1989 COPD Lupus Cirrhosis Anemia TIA (1989) Osteoporosis Uropathy h/o rectovaginal fistula Tubal ligation Gastroesophogeal reflux Reports: Obesity Past Surgical History Right carpal tunnel Left hip repair ORIF l ankle Family History Noncontributory Smoking History Light Tobacco Smoker Social History Hx of alcoholism. Living at [facility]. Alcohol Use: Denies alcohol use Other Social History: Local resident Ambulatory Status Wheelchair Review of Systems +low blood pressure Full Review of Systems GI: Reports: Abdominal pain, Diarrhea, Nausea, Vomiting Complete sys rev & neg: except as marked. Physical Exam Vital Signs Vital Signs Date Time Temp Pulse Resp B/P Pulse Ox O2 Delivery O2 Flow Rate FiO2 01/10/17 18:27 98 18 88/48 96 Nasal Cannula 3 01/10/17 17:23 101 13 92/51 99 Nasal Cannula 3 01/10/17 17:01 36.8 130 17 126/109 100 Nasal Cannula 3 01/10/17 16:33 36.8 109 17 93/67 97 01/10/17 16:16 107 18 01/10/17 15:27 36.8 115 24 113/57 Simple Mask 9 01/10/17 15:14 36.8 116 22 71/47 94 Room Air Initial VS: Reviewed Head / Eyes: Atraumatic, Normocephalic, PERRL ENT: Mucous membranes moist, Conjunctiva normal, No scleral icterus Neck: Supple, Non-tender, Full range of motion Lymphatic: No lymphadenopathy Extremities: Vascular intact, Neuro intact, No swelling, No tenderness Skin: Warm, Dry, No cyanosis Neurologic: Alert, Oriented, Nonfocal Psychiatric: Mood/affect normal, Behavior normal, Normal thought content General/Constitutional: Awake, Alert, Cooperative Resp Distress / Stridor: Positive: Resp distress moderate Coarse breath sounds bilaterally Cardiovascular: Regular rhythm, Heart sounds NL, No murmurs, No rubs Heart Rate / Rhythm: Positive: Tachycardia Abdomen: Soft, No guarding, No rebound, BS normoactive Tenderness/Guarding/Rebound: Positive: Tender diffuse Bowel Sounds / Distention: Positive: Distention mild Back: No midline vertebral tend Shallow sacral ulcers, otherwise normal. Interpretation & Diagnostics Lab Results Interpretation Result Diagram: 01/10/17 1533 01/10/17 1533 Test 01/10/17 15:33 01/10/17 16:51 White Blood Count 19.4th/mm3 (3.8-10.1) Red Blood Count 4.58mil/mm3 (3.90-5.20) Hemoglobin 13.8g/dL (12.0-15.6) Hematocrit 41.9% (35.0-46.0) Mean Corpuscular Volume 91.5fL (81-100) Mean Corpuscular Hemoglobin 30.1pg (27.0-35.0) Mean Corpuscular Hemoglobin Concent 32.9% (32.0-37.0) Red Cell Distribution Width 15.9% (12.3-15.4) Platelet Count 386bil/L (150-400) Neutrophils (%) (Auto) 55% (40-74) Lymphocytes (%) (Auto) 16% (14-46) Monocytes (%) (Auto) 7% (4-12) Eosinophils (%) (Auto) 0% (0-5) Basophils (%) (Auto) 0% (0-3) Band Neutrophils % 22% (1-5) Prothrombin Time 11.4sec (8.1-12.5) Prothromb Time International Ratio 1.06ratio Sodium Level 134mEq/L (134-144) Potassium Level 4.8mEq/L (3.5-5.2) Chloride Level 92mEq/L (97-108) Carbon Dioxide Level 21mmol/L (18-29) Blood Urea Nitrogen 31mg/dL (8-27) Creatinine 2.30mg/dL (0.57-1.00) Estimat Glomerular Filtration Rate 30mL/min (>59) Glucose Level 185mg/dL (60-99) Lactic Acid Level 5.8mmol/L (0.4-2.0) Calcium Level 7.5mg/dL (8.5-10.1) Total Bilirubin 0.4mg/dL (0.0-1.2) Aspartate Amino Transf (AST/SGOT) 23U/L (0-50) Alanine Aminotransferase (ALT/SGPT) 8U/L (0-32) Alkaline Phosphatase 109U/L (25-165) Troponin T 0.043ug/L (0.0-0.011) Pro-B-Type Natriuretic Peptide 8399pg/mL (0-301) Total Protein 7.2g/dL (6.4-8.4) Albumin 3.1g/dL (3.4-5.0) Procalcitonin 32.85ng/mL (0.00-0.08) Urine Color Yellow (YELLOW) Urine Appearance Hazy (CLEAR,HAZY) Urine pH 5.0 (5.0-8.0) Urine Specific [place] >1.030 (1.003-1.035) Urine Protein 30mg/dL (NEG,TRACE) Urine Glucose (UA) Negativemg/dL (NEGATIVE) Urine Ketones Negativemg/dL (NEGATIVE) Urine Occult Blood Small (NEGATIVE) Urine Nitrite Negative (NEGATIVE) Urine Bilirubin Negative (NEGATIVE) Urine Urobilinogen Normalmg/dL (NORMAL) Urine Leukocyte Esterase Moderate (NEGATIVE) Urine RBC 3-10/hpf (0-2) Urine WBC >50/hpf (0-5) Urine Epithelial Cells Few/hpf (NONE-MOD) Urine Crystals None seen (NONE SEEN) Urine Bacteria Moderate/hpf (NONE-FEW) Urine Hyaline Casts None/lpf (NONE) Urine Granular Casts None seen (NONE SEEN) Urine Waxy Casts None seen (NONE SEEN) Urine Red Blood Cell Casts None seen (NONE SEEN) Urine White Blood Cell Casts None seen (NONE SEEN) Urine Mucus None seen (None Seen) Urine Trichomonas None seen (NONE SEEN) Urine Yeast None (NONE SEEN) Urinalysis Comment Renal epi seen Urine Culture Reflexed Indicated ECG Interpretation ECG Interpretation: Low voltage Sinus vs junctional tachycardia at 125 bpm Prolonged QT interval No ST segment changes Compared to prior dated 12/23/2016 pt is now tachycardic Time: 16:52 Interpreted by: ED physician ABG Interpretation ABG Interpretation: 7.358/43/96.5/23.4/-1.5 Exam Performed by: Allied health pract Indication: Respiratory distress X-Ray Chest Interpretation Chest Xray Interpretation: IMPRESSION: Right-sided central venous catheter as above. Mild increased pulmonary vascularity and chronic interstitial changes. Dictated by: Linda Weeks M.D. on 01/10/2017 at 16:16 Interpretation / Wet Read by: Interpret - Radiologist CT Abd / Pelvis Interpretation IMPRESSION: 1. Diffuse colonic wall thickening consistent with colitis. Differential diagnoses include infectious colitis, pseudomembranous colitis, inflammatory disease and ischemic colitis. Recommend clinical correlation. 2. There is soft tissue stranding in the right abdomen primarily around the cecum. The appendix and terminal ileum are normal. 3. Atherosclerosis in the abdominal aorta. The distal aortic lumen is mildly narrowed just above the bifurcation. 4. Small right effusion. 5. Distended gallbladder with possible tiny gallstones. 6. A couple of hyperdense nodules in the inferior pole of the left kidney, probably small hyperdense cysts. Recommend nonurgent renal ultrasound to confirm cystic nature when feasible. Dictated by: Gisella Montana M.D. on 01/10/2017 at 17:41 Interpretation / Wet Read by: Interpret - Radiologist Procedures Central Line Placement Time: 15:44 Procedure Performed by: ED physician Consent / Setup / Site Prep: Informed consent provided, Consent from patient , Time-out performed, Oxygen administered, Pulse oximeter applied, shipping and receiving material handler applied, Hand hygiene observed, Standard surgical scrub, Max barrier precaution, Sterile drapes applied, Position Trendelenburg Skin Preparation Agent: Hibiclens - Chlorhexidine Local Anesthesia: Lidocaine 1% Procedural Sedation/Analgesia: Analgesia: Dilaudid Side / Location / Ultrasound: Internal jugular right, Ultrasound assisted Catheter / Lumen / Technique: Triple lumen, Seldinger technique, Good blood return, Secured w catheter device Post-Procedure / Complications: Dressing placed, CXR neg for pneumothorax, Condition improved, Tolerated procedure well, Patient stable, Not stable post- procedure Re-Eval/Medical Decision Med Decision/Clinical Course The patient is a 66 year old female with history of CVA, COPD, cirrhosis, anemia , and GERD, who was brought to the emergency department by EMS from [facility] for hypotension. The patient has experienced abdominal pain, nausea, vomiting, and diarrhea, for the last 3 days. The patient is currently residing at [facility] for a right lower leg wound. She has been on antibiotics for about 1 week. History is somewhat difficult to obtain due to the patient's condition. Upon arrival the patient is profoundly hypotensive with a blood pressure of 60/ 40. IV access was very difficult and only 122-gauge peripheral IV was able to be established. Fluid bolus was initiated. Given patient's profound hypotension and need for aggressive fluid resuscitation I proceeded to place a right internal jugular CVC as documented above. The procedure was performed under ultrasound guidance and tolerated well. Chest x-ray thereafter demonstrated good placement of the catheter. The patient was aggressively fluid resuscitated with a total of 4 L of normal saline though she remained hypotensive with a map less than 65. Therefore epinephrine infusion was started. The patient was additionally treated with Dilaudid, Zofran, DuoNeb in the setting of wheezing and underlying COPD. CXR: Right-sided central venous catheter as above. Mild increased pulmonary vascularity and chronic interstitial changes. EKG was obtained and interpreted by myself as documented above. CT scan was obtained as below: 1. Diffuse colonic wall thickening consistent with colitis. Differential diagnoses include infectious colitis, pseudomembranous colitis, inflammatory disease and ischemic colitis. Recommend clinical correlation. 2. There is soft tissue stranding in the right abdomen primarily around the cecum. The appendix and terminal ileum are normal. 3. Atherosclerosis in the abdominal aorta. The distal aortic lumen is mildly narrowed just above the bifurcation. 4. Small right effusion. 5. Distended gallbladder with possible tiny gallstones. 6. A couple of hyperdense nodules in the inferior pole of the left kidney, probably small hyperdense cysts. Recommend nonurgent renal ultrasound to confirm cystic nature when feasible. Laboratory studies were notable as below: leukocytosis 19.4 with 22 % bands BUN 31, creatinine 2.3 lactate 5.8 no significant electrolyte abnormality positive troponin of .043 BNP 8399 procalcitonin 32.8 normal coag studies UA consistent with UTI AB.358/43/96.5/23.4/-1.5 Patient remained with significant supplemental oxygen requirement of 6 L. Improvement after aggressive IV fluid resuscitation though continued to require vasopressors. At this time, the cause of the patient's profound hypotension is not entirely clear. Urine does appear grossly infected and is a catheterized specimen. Given toxic in appearance of the patient and concern for sepsis/ infectious etiology the patient was started on broad-spectrum IV antibiotics using vancomycin and Zosyn. Cause of the patient's nonspecific colitis remains unclear though additionally infectious etiology is suspected. Patient has recently been treated with antibiotics and therefore C. difficile PCR was sent. Ischemic etiologies of colitis remain a possibility as well though overall presentation is most consistent with acute infectious process given leukocytosis , left shift. With above measures the patient has now been stabilized and has been admitted to the ICU for further management and consultation. Because of the patient's elevated troponin is not entirely clear though I suspect that this is related to underlying acute kidney injury in the setting of demand ischemia. Troponin levels will be trended. EKG does not demonstrate STEMI. Source of Hx: Old records, EMS Time of Eval: 15:41 Re-Evaluation/Progress Note: Blood pressure dropped to 64/45. Time of Eval: 16:15 Re-Evaluation/Progress Note: Vitals signs are improved after IVF. Consultation : Consulted With: Hospitalist Requested Call at: 18:00 Engravings Polisher: Will see patient, Agrees with eval, Agrees with plan, Accepts admit Counseled Regarding: Diagnosis, Lab results, Need for admission Discharge & Departure Primary Impression: Sepsis Sepsis type: sepsis due to unspecified organism Qualified Code: A41.9 - Sepsis, unspecified organism Additional Impressions: Septic shock Urinary tract infection Urinary tract infection type: site unspecified Hematuria presence: without hematuria Qualified Code: N39.0 - Urinary tract infection, site not specified Acute kidney injury Elevated troponin Bandemia Abdominal pain Abdominal location: unspecified location Qualified Code: R10.9 - Unspecified abdominal pain Colitis Elevated brain natriuretic peptide (BNP) level Leukocytosis Leukocytosis type: unspecified Qualified Code: D72.829 - Elevated white blood cell count, unspecified Disposition: ADMITTED TO HOSPITAL Discharge Condition All VS Reviewed: Yes Condition: Stable Referrals: Ellie Rabago (PCP) Crit Care Except Billable Proc Time Spent: 165-194 minutes Services Performed: Patient management by me, Time spent at bedside, Reviewing test results, Reviewing imaging, Discussing patient care, Documentation in record Critical Care Notes: Independent of separately billable procedures. Scribe Attestation Portions of this note were transcribed by Carmel Buenrostro. I, Dr. Espinal personally performed the history, physical exam and medical decision-making; I reviewed and confirmed the accuracy of the information in the transcribed note. Signed by: Alison Askew, 01/10/2017 at 1815. copies to: Ellie Rabago Beck O MD Jan 10, 2017 15:15 Carmel Buenrostro Jan 10, 2017 15:23
[2017-01-10] MEDS: 0.9% Sodium Chloride 1,000 ML IV SCH ×2 (15:20→17:04)
[2017-01-10] MEDS ORDERED: 0.9% Sodium Chloride 1,000 ML IV ONE (15:20)
[2017-01-10] MEDS ORDERED: Albuterol-Ipratropium 3 mL Inhalation Solution NEB SCH (15:30)
[2017-01-10] MEDS ORDERED: Albuterol-Ipratropium 3 mL Inhalation Solution NEB ONE (15:30)
[2017-01-10 15:40] LABS: Mean Corpuscular Hemoglobin 30.1 pg (27.0-35.0); Mean Corpuscular Volume 91.5 fL (81-100); Platelet Count 386 bil/L (150-400)
[2017-01-10] MEDS ORDERED: Ondansetron 2 mg/mL 2 mL Inj ONE (15:42)
[2017-01-10] MEDS ORDERED: HYDROmorphone 1 mg/mL Inj ONE (15:46)
[2017-01-10 15:58] LABS: INR 1.06 ratio
[2017-01-10 16:06] LABS: BASOPHILS % (AUTO) 0 % (0-3); EOSINOPHILS % (AUTO) 0 % (0-5); MONOCYTES % (AUTO) 7 % (4-12); NEUTROPHILS % (AUTO) 55 % (40-74)
--- NOTE | 2017-01-10 16:09 | ABG ---
DateTimeAnalyzed 16:03:00 -_ pH ____7.358 - 7.350 7.450 pCO2 ___42.7__ -mmHg 35.0 45.0 pO2 ___96.5__ -mmHg 69.0 116 HCO3- ___23.4__ -mmol/L 22.0 26.0 ABE ___-1.5__ -mmol/L -2.0 2.0 tHb ___12.4__ -g/dL O2Hb ___95.0__ -% COHb ____1.1__ -% MetHb ____1.0__ -% sO2 ___97.0__ -% FIO2 ___50.0__ -% Drawn By as - Date/Time Notified____ 16:08:00 -_ Spontaneous_RR ___18.0__ -b/min Liter_Flow ____7.0__ -L/min Oxygen Device 1 __oxymask - Notified By AMS - Notified Whom Dr Culp - B 762 -mmHg tO2 ___16.6__ -Vol% Mazin test _Positive -
--- NOTE | 2017-01-10 16:19 | DRSVH ---
PROCEDURE: X-RAY CHEST ONE VIEW ([id number]) INDICATIONS: CENTRAL LINE PLACEMENT TECHNIQUE: One view of the chest was acquired. COMPARISON: [facility], CR, XR CHEST 1VW (PORTABLE), 12/13/2016, 18:32. FINDINGS: Surgical changes and devices: Right-sided central catheter is present with distal tip projecting over the expected region of the mid/distal SVC taking account scoliotic curvature of the thoracic spine. Lungs and pleura: Lungs demonstrate chronic interstitial changes as well as mild increased pulmonary vascularity. Mediastinum: Mediastinal contours appear normal. Heart size is normal. Bones and chest wall: No suspicious bony lesions. Overlying soft tissues appear unremarkable. IMPRESSION: Right-sided central venous catheter as above. Mild increased pulmonary vascularity and ch ronic interstitial changes. Dictated by: Linda Weeks M.D. on 01/10/2017 at 16:16 Approved by: Linda Weeks M.D. on 01/10/2017 at 16:18
[2017-01-10 16:25] LABS: TROPONIN T 0.043 ug/L (0.0-0.011)
[2017-01-10] MEDS ORDERED: Alum-Mag Hydrox-Simeth 30 mL Suspension PO PRN (16:25)
[2017-01-10] MEDS ORDERED: FLUT9.9S NS (17:14)
[2017-01-10] MEDS ORDERED: LORA10CA PO (17:14)
[2017-01-10] MEDS ORDERED: BISA-67 PO (17:16)
[2017-01-10] MEDS ORDERED: ACET325C PO (17:18)
[2017-01-10 17:20] LABS: APPEARANCE,URINE HAZY (CLEAR,HAZY); COLOR,URINE YELLOW (YELLOW)
[2017-01-10 17:21] LABS: OCCULT BLOOD,URINE SMALL (NEGATIVE); UROBILINOGEN,URINE NORMAL (NORMAL)
[2017-01-10] MEDS ORDERED: ADV250INH IH (17:22)
[2017-01-10] MEDS ORDERED: ALEN70TA2 PO (17:23)
[2017-01-10] MEDS ORDERED: Vancomycin Dose per Pharmacist XX ONE (17:40)
[2017-01-10] MEDS ORDERED: Piperacillin-Tazo 3.375 Gm Inj 3.375 GM in Dextrose 5% Minibag Plus 50 ML IV ONE (17:40)
[2017-01-10] MEDS ORDERED: ONDA-53 PO (17:49)
[2017-01-10] MEDS ORDERED: CHOL10008 PO (17:49)
[2017-01-10] MEDS ORDERED: Vancomycin Inj 1,250 MG in 0.9% Sodium Chloride 250 ML IV ONE (17:50)
--- NOTE | 2017-01-10 17:55 | DRSVH ---
PROCEDURE: CT ABDOMEN AND PELVIS WITHOUT CONTRAST ([id number]) INDICATIONS: ABDOMEN PAIN,SEPTIC TECHNIQUE: After the administration of oral contrast, 5 mm thick sections acquired from the diaphragms to the sy mphysis. 5 mm coronal and sagittal reformats were performed. For radiation dose reduction, the foll owing was used: automated exposure control, adjustment of mA and/or kV according to patient size. COMPARISON: None. FINDINGS: Image quality: Excellent. ABDOMEN: Lung bases: Trace right pleural effusion. Bibasilar atelectasis. Heart size is normal. Solid organs: Liver and spleen are normal in size. Gallbladder is distended. There may be tiny gall stones. Pancreas is normal in size. No adrenal nodules. Both kidneys are normal in size, without h ydronephrosis or nephrolithiasis. There are a couple of small 9-10 mm hyperdense nodule in the infer ior lateral cortex of the left kidney. Peritoneum and bowel: There is diffuse colonic wall thickening. There is stranding in the right abd omen, primarily surrounding the cecum. Appendix is normal, as well as the terminal ileum. No evidence for bowel obstruction. There is a trace amount of free fluid. No free air. Nodes and vessels: No retroperitoneal or mesenteric adenopathy by size criteria. Severe atheroscler osis in the abdominal aorta. The aortic lumen is narrowed at the aortic bifurcation measuring 0.7 AP x 1.5 cm transverse. Miscellaneous: No ventral hernias. PELVIS: Genitourinary: Bladder wall thickness is normal. Miscellaneous: No inguinal hernias or adenopathy. Bones: No suspicious bony lesions. No vertebral body compression fractures. There is a left femora l neck fracture which is internally fixed. IMPRESSION: 1. Diffuse colonic wall thickening consistent with colitis. Differential diagnoses include infectious colitis, pseudomembranous colitis, inflammatory disease and ischemic colitis. Recommend clinical cor relation. 2. There is soft tissue stranding in the right abdomen primarily around the cecum. The appendix and t erminal ileum are normal. 3. Atherosclerosis in the abdominal aorta. The distal aortic lumen is mildly narrowed just above the bifurcation. 4. Small right effusion. 5. Distended gallbladder with possible tiny gallstones. 6. A couple of hyperdense nodules in the inferior pole of the left kidney, probably small hyperdense cysts. Recommend nonurgent renal ultrasound to confirm cystic nature when feasible. Dictated by: Gisella Montana M.D. on 01/10/2017 at 17:41 Approved by: Gisella Montana M.D. on 01/10/2017 at 17:52
[2017-01-10] MEDS ORDERED: HYDROmorphone 0.5 mg/0.5 mL iSecure Syringe IVPUSH PRN (18:10)
[2017-01-10] MEDS: Norepineph 8,000 mCg/250 mL NS 8,000 MCG in IV Premix 1 EACH IV SCH (18:20)
[2017-01-10] MEDS ORDERED: Heparin Protocol Boluses IVPUSH PRN (19:45)
[2017-01-10] MEDS ORDERED: Heparin 25K Unit/500mL 0.45 NS 25,000 UNIT in IV Premix 1 EACH IV SCH (19:45)
[2017-01-10] MEDS ORDERED: Heparin Initial Bolus IVPUSH ONE (19:45)
[2017-01-10 21:30] LABS: Magnesium 2.1 mg/dL (1.6-2.6); Phosphorus 6.4 mg/dL (2.5-4.9)
--- NOTE | 2017-01-10 21:50 | PCM.HPMED ---
Subjective Date of Service Jan 10, 2017 Primary Provider: Admitting Physician: Rolando Hadley MD Primary Care Physician: Ellie Rabago Attending Physician: Rolando Hadley MD Chief Complaint: Altered mental status, fever, chills, abdominal pain, diarrhea History of Present Illness: I want to emphasize that most of the informations were retrieved from the patient`s chart. Patient is lethargic, refractory encephalopathy and cannot participate in review and history taking. The patient is a 66 year old female with history of CVA, COPD, cirrhosis, anemia , and GERD, who was brought to the emergency department by EMS from [facility] for hypotension. The patient has experienced abdominal pain, nausea, vomiting, and diarrhea, for the last 3 days. The patient is currently residing at [facility] for a right lower leg wound. She has been on antibiotics for about 1 week. ER workup showed leukocytosis, acute renal failure and elevated lactic acid. Elevation and septic shock and CT scan of the abdomen showed colitis. Patient is being admitted to the intensive care unit for close follow-up and monitoring Review of Systems: A comprehensive review of systems cannot be obtained at this time Allergies Coded Allergies: No Known Allergies (Verified Allergy, Unknown, 01/10/17) Uncoded Allergies: HAYFEVER (Allergy, Unknown, 06/11/16) Home Medications Alendronate Sodium (Fosamax) 70 Mg Tablet 70 MG PO WEEKLY SUNDAYS Aspirin Chew (Aspirin Chew) 81 Mg Chew 81 MG PO DAILY Bisacodyl (Dulcolax) 5 Mg Tablet.dr 5 MG PO BID Calcium Carbonate (Calcium Carbonate) 200 Mg Tab.chew 500 MG PO TIDWM Cholecalciferol (Vitamin D3) (Vitamin D3) 1,000 Unit Tab.chew 1,000 UNIT PO DAILY Fluticasone/Salmeterol (Advair 250-50 Diskus) 60 Puff/Inh Disk 1 PUFF IH BID Furosemide (Furosemide) 20 Mg Tab 20 MG PO BIDAC Gabapentin (Neurontin) 400 Mg Capsule 400 MG PO QID Loratadine (Claritin) 10 Mg Capsule 10 MG PO DAILY Multivitamin (Multivitamins) 1 Each Capsule 1 EACH PO DAILY Oxycodone ER (Oxycontin) 10 Mg Tab.er.12h 10 MG PO BID Scheduled PRN Acetaminophen (Acetaminophen) 325 Mg Capsule 650 MG PO Q4 PRN PRN For Pain Albuterol HFA (Proair HFA) 8.5 Gm Hfa.aer.ad 2 PUFFS INH Q4H PRN PRN For Shortness of Breath Ondansetron (Ondansetron) 4 Mg Tablet 4 MG PO Q8H PRN PRN For Nausea Sennosides (Senna) 8.6 Mg Tablet 17.2 MG PO BID PRN PRN For Constipation diphenhydrAMINE HCl (Benadryl) 25 Mg Capsule 25 MG PO Q4H PRN PRN For Itching oxyCODONE (oxyCODONE) 5 Mg Tablet 5 MG PO Q4H PRN PRN For Moderate Pain PMH Arthritis, h/o pneumonia, CVA 1989, COPD, Lupus, Cirrhosis, Anemia, TIA (1989), Osteoporosis, Uropathy, h/o rectovaginal fistula, Tubal ligation, Gastroesophogeal reflux, Reports: Obesity Surgical History Right carpal tunnel , Left hip repair , ORIF l ankle Family History Unable to obtain Social History Hx Alcohol Use: No Hx Substance Use: No Hx Tobacco Use: No Smoking Status: Current Every Day Smoker Exam Vital Signs Vital Sign - Last Date Time Temp Pulse Resp B/P Pulse Ox O2 Delivery O2 Flow Rate FiO2 01/10/17 20:46 97 12 93/55 98 01/10/17 20:19 Nasal Cannula 3 01/10/17 17:01 36.8 Exam General: Ill appearing ( female, lethargic, no acute distress Head / Eyes: atic, Normocephalic, PERRL, sclerae anicteric ENT: Mucous membranes moist, Conjunctiva normal, No scleral icterus Neck: No cervical lymphadenopathyy ,Supple, Non-tender, Full range of motion, trachea is midline. IJ line in the right side Chest : No chest wall tenderness, normal respiratory efforts lung : Clear to auscultation bilaterally, no crackles, no wheezingg Cardiovascular: S1S2, regular rhythm, Heart sounds NL, No murmurs, No rubs Abdomen: Distended Soft, No guarding, No rebound, BS normal all quadrants + Extremities: Vascular intact, Neuro intact, No swelling, No tenderness, right ankle suggesting in place Skin: Warm, Dry, No cyanosis Neurologic: Lethargic, no acute deficit Lab and Diagnostics Result Diagram: 01/10/17 1533 01/10/17 1533 Microbiology Cultures of blood /Urine : Pending X-Rays, CTs and MRIs Abdominal CT scan reviewed : 1. Diffuse colonic wall thickening consistent with colitis. Differential diagnoses include infectious colitis, pseudomembranous colitis, inflammatory disease and ischemic colitis. Recommend clinical correlation. 2. There is soft tissue stranding in the right abdomen primarily around the cecum. The appendix and terminal ileum are normal. 3. Atherosclerosis in the abdominal aorta. The distal aortic lumen is mildly narrowed just above the bifurcation. 4. Small right effusion. 5. Distended gallbladder with possible tiny gallstones. 6. A couple of hyperdense nodules in the inferior pole of the left kidney, probably small hyperdense cysts. Recommend nonurgent renal ultrasound to confirm cystic nature when feasible. Chest x-ray reviewed : Right-sided central venous catheter as above. Mild increased pulmonary vascularity and chronic interstitial changes. Assessment & Plan 1- Septic shock : Source likely abdominal but patient has other possible source of entry. He was recently discharged form the hospital and underwent ORIF of right ankle fracture . Patient was exposed to Zivox, cipro and Bactrim in the past week or so and has been having diarrhea for the past 3 days Start empiric Zosyn and Vancomycin . Add PO flagyl for possible/ suspected C- diff colitis . Abdomen quite tender on palpation . Blood cultures , u/a, urine culture . Stool for C-diff . Fluid resuscitation with NS Norepinephrine drip and titrate for MAP above 65. Sepsis bundles ( See orders). ICU admit and monitoring . 2. Colitis : CT scan finding compatible with ischemic versus infectious . Stool for C-diff. PO flagyl and IV Vancomycin . Consider surgery consult in AM 3. Leukocytosis : Due to sepsis and colitis 4. Acute renal failure : Pre-renal Hypotension and septic shock. Monitor renal function and electrolytes closely. 5 Lacticemia : Leann to colitis. repeat lactate in am. Improvement is expected with IV hydration 6. Elevated troponin : Likely due to hypotension /septic shock . Patient has no angina 7. Acute encephalopathy : Toxic and metabolic This is a very sick patient sent from jail due to altered mental status , diarrhea for 3 days, fever, chills. Patient found to be in septic shortness of his systemic blood pressure around 70 -80 on presentation. She was restricted to 5 fluid and blood and norepinephrine drip. CT scan is compatible with colitis likely infectious vs ischemic but the former is more likely. Patient has recent exposure to 3 different antibiotics following ankle fracture status post ORIF Patient is being admitted to the ICU, started on broad-spectrum antibiotics vancomycin, Zosyn, Flagyl PO. This is an initial care for now and will be addresses as per clinical course. Prognosis is guarded. Morning labs : cbc, lactate, troponin, cmp VTE Prophylaxis: Sub-Q Heparin (Unfractionated) Time spent 75 minutes Rolando Hadley MD Jan 10, 2017 21:49
[2017-01-10] MEDS: Heparin 5,000 Unit/mL Inj SUBQ SCH (21:56)
--- NOTE | 2017-01-10 23:01 | PCM.PHAPRO ---
Progress Date of Service: Jan 10, 2017 Altered mental status, fever, chills, abdominal pain, diarrhea Vancomycin Management per Pharmacy: Indication: Sepsis (source: R lower leg wound?) Age: 66 yo F Weight: 62.5 kg Labs: WBC: 19.4 Procalcitonin: 32.9 SrCr: 2.3 mg/dL (baseline SrCr: ~0.6 mg/dL) Est CrCl: ~ 25 mL/min Nephrotoxic Risk Factors: ARCADIO, Hypotension (decreased perfusion to kidneys), recent hx of Bactrim Rx outpt, diarrhea x 3 days (some volume depletion), Zosyn IV Micro: Blood cultures pending Recommendation: Load: Vancomycin 1250 mg IV x 1 (20 mg/kg) Maintenance: Vancomycin 500 mg IV Q24h for now, dose may need to be increased if renal function improves with fluids/antibiotics Vancomycin Trough: 01/12 @ 1630 - early due to ARCADIO and uncertainty regarding renal function Pharmacy to continue to monitor and adjust vancomycin as needed. Thank You, Moriah Ortega, Pharm D. Moriah Ortega Jan 10, 2017 23:01
--- NOTE | 2017-01-10 23:35 | NUR ---
Admit Arrive from ER 2109. Drowsy, oriented, forgetful. c/o low back, 08/28. Abdominal pain, 06/28. Mild nausea and dyspnea. Moving from guerny to bed helpful for back, 02/26. Tylenol and maalox given. Low back pain down to /. Denies N/V, abdominal pain improved. Tele sinus arrhythmia. Difficult to obtain o2 sats. Ear probe, 99% on 1 L NC from 3 L NC. Hypotension. Arrive w/ norepinephrine at 0.10 mcg. Upwards titration of norepinephrine drip. Mendes draining gaudencio urine.
[2017-01-11] VITALS (7 sets, daily range): BP systolic 90–107; BP diastolic 50–82; PULSE 91–112; RESP 13–26; O2SAT 94–100
[2017-01-11] MEDS: Ondansetron 2 mg/mL 2 mL Inj IVPUSH PRN ×2 (02:45→11:15)
[2017-01-11] MEDS: 0.9% Sodium Chloride 1,000 ML IV SCH ×3 (04:42→15:49)
[2017-01-11 05:16] LABS: Mean Corpuscular Hemoglobin 29.7 pg (27.0-35.0); Mean Corpuscular Volume 91.7 fL (81-100)
[2017-01-11] MEDS: Norepineph 8,000 mCg/250 mL NS 8,000 MCG in IV Premix 1 EACH IV SCH ×2 (05:44→18:04)
[2017-01-11 06:12] LABS: TROPONIN T 0.045 ug/L (0.0-0.011)
[2017-01-11] MEDS ORDERED: Vancomycin Dose per Pharmacist XX SCH (08:30)
[2017-01-11] MEDS: Heparin 5,000 Unit/mL Inj SUBQ SCH ×2 (08:31→17:22)
[2017-01-11] MEDS: Piperacillin-Tazo 3.375 Gm Inj 3.375 GM in Dextrose 5% Minibag Plus 50 ML IV SCH ×2 (09:51→20:23)
[2017-01-11] MEDS: oxyCODONE ER 10 mg ER12 Tablet PO SCH ×2 (10:20→20:23)
[2017-01-11] MEDS ORDERED: Sodium Chloride LOK Flush 10 mL Syringe IVFLUSH PRN (10:45)
--- NOTE | 2017-01-11 10:45 | NUR ---
Gave access to [facility] and faxed facesheet, patient comes from there.
--- NOTE | 2017-01-11 12:06 | NUR ---
Social Work: Initial Assessment D: Per EMR review, pt is a 66 year old female admitted for Sepsis. Pt is Medicare with [facility] supplement; pt has no LT insurance or VA benefits. PCP is OPAL Pedro. NOK is Dereck Rodriguez, pardeep. Advanced directives completed, per pt, but not on chart. [facility] requested pt have family provide copy. Readmit score not entered at this time. Pt recently discharge to [facility] on 12/27/16. [facility] met with pt at bedside. Sw role and contact information provided. See initial assessment. Prior to discharge to [facility]. Pt was living at home in an apartment where she had [employer] caregiving 2x week to assist with chores and meal prep. Pt states that she used a power chair prior to admission and was I with transfers. Pt states that she is wiling to return to [facility] as long as it is covered under her Medicare. Pt states that she is concerned about hospitalization and not having her insurance pay for it. [facility] reviewed medical necessity which seemed to calm pt's concerns about admission. t/c to pt's [facility] Worker, Belgica Nunez. left message notifying of pt's admission; [employer] to fax clinicals. t/c to [facility]; left message requesting return phone call to discuss pt's status; access provided A: Pt who is currently in CCU; originally from home but recent resident at [facility]. P: Anticipate pt will likely require continued Skilled Rehab at time of discharge; Pt formally with [facility], [facility] to follow up with them if they can accept pt back. [facility] to continue to follow pt's clinical progress. JAMA Koehler Addendum: 01/11/17 at 1216 by PABLO LUIS Amended: Links added.
--- NOTE | 2017-01-11 12:13 | NUR ---
spiritual care: follow up conversational visit and assistance contacting friend. pt appreciative of visit and follow up from her emergency room admit.
--- NOTE | 2017-01-11 13:04 | CONS ---
[address] [address] CONSULTATION REPORT PATIENT: OSMAN WOLFE : 1950 MR#: [id number] ADMIT: 01/10/2017 JOB ID: [id number] DATE OF SERVICE: 01/11/2017 INFECTIOUS DISEASE CONSULTATION: I thank Dr. Hamilton for this timely consult. REASON FOR CONSULTATION: Probable colitis with associated septic shock. HISTORY OF PRESENT ILLNESS: The patient is extremely well known to me from a long and complex hospitalization that started late in November of this year. The patient was admitted with a truly extraordinary right lower extremity abscess which covered much of her middle tibial area and required three different debridements during the course of that hospital visitation in late November and early December. An amazing collection of microorganisms grew from that extensive debridement which included group B strep, Corynebacterium striatum, MSSA, and enterobacter. She was initially treated with clindamycin as part of an antibiotic regimen prior to the isolation of these particular organisms. After her three debridements she did well enough to be transferred and ended up at [facility], where she was completing a course of Cipro and linezolid as oral therapy for all those organisms. She was also undergoing careful attention to wound management and care of this very extensive denuded area over her right butler. The plan was to eventually consider skin grafting perhaps. Apparently the patient was doing reasonably well at [facility], but then developed fever, chills, severe abdominal pain with diarrhea, and encephalopathy. The patient is awake this morning and tells me the abdominal pain started about three days ago and was associated with diarrhea which just progressively got worse. In association she describes fevers, chills, and profound weakness to the point she could no longer get in and out of a chair. She notes that her respiratory status, which has been a problem as she has COPD, has really been pretty stable and she has not had increasing shortness of breath, sputum production, or chest pain. She also notes that her extensive right lower extremity wound has been completely painless and has really given her very few problems whatsoever since she left the hospital about three weeks ago. In the emergency department the patient was found to have acute renal failure, lactic acidosis, leukocytosis, and septic shock. Emergent CT scan of the abdomen showed colitis and the patient was started on broad-spectrum antibiotics with the consideration that she may have a respiratory tract infection, UTI as suggested by pyuria, or perhaps colitis. Her antibiotics overnight have included vancomycin IV and Zosyn. At this point she has not been started on anything for possible C. diff, though appropriate studies have been ordered. The patient tells me that just overnight she has been feeling somewhat better and that she is no longer confused. She no longer has any fever or chills. She continues to have diarrhea and when moved complains of quite severe abdominal pain. The patient tells me that despite the fact she has pyuria on the urinalysis she has absolutely no urgency, frequency, or dysuria in the days leading up to this admission. PAST MEDICAL HISTORY: 1. Lupus. 2. History of cerebrovascular disease with cerebrovascular accident. 3. COPD. 4. GERD. 5. Extensive right lower extremity wound status post three debridements in October and early December 2016. 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 She is not a drinker but she continues to be a cigarette smoker when she is not in the hospital or at a correction facility. She ordinarily lives in an apartment here in the [facility]. FAMILY HISTORY: Negative for tuberculosis in her parents, siblings, and other 1st-degree relatives. REVIEW OF SYSTEMS: Was done. The patient is quite alert this morning after the encephalopathy that was documented when she was admitted yesterday. She tells me that she has had a bit of a headache the last couple of days but it is quite minor. No visual change, sore throat, or trouble swallowing. She has no significant cough and she denies any worsening in her baseline COPD-related shortness of breath. No chest pain. She has had severe abdominal pain and diarrhea which started about three days ago and has progressively worsened. She has been nauseated, but no vomiting. No urgency, frequency, or dysuria. She has no acute problems with her joints, but she notices that all of her major muscles have been very weak the last few days. She notes she has been unable even to get out of bed to a commode the last day or two because of this ongoing illness. She also notes fevers and chills. The remainder of the review of systems is negative. PHYSICAL EXAMINATION: Reveals an afebrile woman temp 36.6 degrees, pulse approximately 99, respiratory rate is in the teens today 14-18. She has been requiring vasopressor agents through the night, though the nurses are working right now to taper that off. Her blood pressure is currently 100/60 on a small dose of norepinephrine and that may soon be discontinued. She is saturating well on 2 L nasal prongs. She is alert and oriented this morning. Examination of the head reveals no trauma. There is no temporal wasting noted eyes without conjunctivitis or scleral icterus. Nose normal. Oral cavity without thrush or pharyngitis. Neck is reasonably supple, without adenopathy or overt JVD. Lungs were carefully auscultated posteriorly and there were decreased breath sounds at the right base but very little in the way of rales or rhonchi. Cardiac tones regular rate and rhythm with some tachycardia. No significant cardiac murmur was noted. The abdomen has bowel tones but they are diminished. The abdomen is distended and extremely tender in all four quadrants. I am really not able to push very hard in attempting to feel for any organomegaly as the patient just has too much pain at this point. She does have a Mendes catheter at this point. No suprapubic or pubic abnormalities are noted. The patient's buttocks show evidence of three separate shallow stage 2 decubitus ulcers, none of which appear very infected. These are on both sides of the coccyx at about the superior end of the gluteal cleft. The extremities themselves have some minimal edema around the feet and ankles bilaterally. The right lower extremity has a 14 x 7 denuded area of skin, which is where the previous three debridements occurred. This area is granulating well and does not appear infected. The patient's motor strength is quite diminished, 3+ over five diffusely. She is much weaker than when I saw her a month or so ago in the hospital here. The patient's peripheral sensation is quite intact and she has reasonable capillary refill in her feet. No evidence of synovitis is noted. LABORATORIES: Include white count when she left the hospital two weeks ago 6600, when she came back yesterday afternoon 20,000, and today 25,000. That is notable for a very large 22% bandemia. Creatinine 1.54, when she left the hospital was 0.6, and yesterday's was even worse at 2.3, so there has been a bit of improvement overnight. Lactic acid is currently 1.4. LFTs are completely normal. Procalcitonin 23 today, down from 33 yesterday; it was very low at less than 0.5 when she left the hospital a couple of weeks ago. Micro studies include the above-mentioned cultures from the last admission. During this admission, we have blood cultures which are pending, a C. diff on stool which is pending, a urine which showed greater than 50 white cells and is growing what appears to be an E. coli, and a MRSA swab which is pending. Recall that a month ago her MRSA swab was negative. IMAGING: Done during this admission includes a CT of the abdomen and pelvis which was done last night. It shows diffuse colonic wall thickening consistent with colitis. There is also some soft tissue stranding around the cecum and a small right pleural effusion. Her chest x-ray shows chronic interstitial changes. IMPRESSION: It would appear most likely that this patient has developed C. difficile colitis on the basis of the antibiotics she received one month ago when she was admitted with the limb-threatening massive abscess of the right lower extremity. The patient received both clindamycin and Cipro during that admission, as she grew four sometimes very difficult to treat organisms and the most parsimonious way to do that unfortunately involved the use of these antibiotics, which are prone to cause C. diff. It appears that we have now reaped what we have sown, in that she appears to have developed C. diff on the basis of the antibiotics given for the serious infection a month ago. I see no evidence at this point that the patient has any significant pulmonary infection as she has really no symptoms and her chest x-ray is for her relatively clear. I also doubt that this is primarily related to her right lower extremity as I just carefully examined the wound with Teja the wound enrollment management manager and there is really a very clean-appearing wound there which in no way appears infected. A urinary tract infection would be difficult to exclude as she has pyuria and is growing some E. coli, but she has no urinary symptoms and I doubt that would produce this degree of illness in any event. We are left with a probable diagnosis of C. diff. Within the next hour two we will have back our C. diff PCR and I suspect this will be positive. RECOMMENDATIONS: 1. We await the stool for C. diff PCR. 2. Will go ahead and stop the vancomycin IV that has been started. The patient has already suffered a renal injury on the basis of this illness and I do not think this is a MRSA infection given that she was just screened negative for MRSA very recently and she appears to have colitis. 3. The Zosyn can be continued, at least until we have a little clarity in what is going on with this patient at this time, but presumably we can narrow that down quite a bit as we get more data. 4. The patient is receiving IV Flagyl and I have no qualm with that, though it is an inferior C. diff agent, but it can be additive sometimes and does offer us a C. diff agent which can be used IV and when patients are in shock. 5. I will order fidaxomicin at this point. Fidaxomicin is a superior C. diff drug associated with a reduced risk of recurrence. If the patient's C. diff should bar turner to be negative, we can reassess the use of this agent. 6. I will be out of town for 10 days and difficult to reach starting tomorrow. I can be reached by e-mail through the [employer] e-mail system, but there will probably be some delay between sending the e-mail and getting an answer. 7. My overall advice on this patient would be to try and rule in a diagnosis of C. difficile and treat it with fidaxomicin. The Flagyl can be stopped as the patient improves. 8. With respect to her possible urinary tract infection, I think we could try and use a very brief course of antibiotics directed at the E. coli and keep it as narrow as possible and avoid the use of quinolones or other antibiotics which would be likely to work at cross-purposes against our probable diagnosis of C. difficile colitis.
--- NOTE | 2017-01-11 13:49 | NUR ---
NUTRITION ASSESSMENT ASSESS: 66 YO female admitted for septic shock. Pt recently admitted for right leg cellulitis, and has been receiving wound care at [facility] since discharge. Per rounds, pt exposed to several antibiotics r/t wound, and may be partial cause for sepsis. Per notes, pt stated abdominal pain, nausea, vomiting and diarrhea three days prior to current admission. MD states she is able to eat, but still experiencing some abdominal pain. Wt fluctuations noted from previous admit wts. Attempted to contact [facility] for a recent wt. CT showed acute colitis and possible C diff positive. PMHx: Arthritis, COPD, CVA, Pneumonia, Lupus, TIA, anemia, osteoporosis, GERD, Tubal ligation, carpal tunnel, left hip repair LABS: Reviewed. BUN 30, Informatics Nurse Specialist 1.54, Gluc 146, Ca 5.9, Alb 2.3, Procalc 22.89 MEDS: Reviewed. Norepi, Maalox, Zofran GI: BM x 2 (01/11) SKIN: Justus 13 wound on R lower leg, redness on sacrum CURRENT WT: 62.5 kg BMI: 20.3 kg/m2 Previous Admit (12/16/16): 77.5 kg IBW: 65.9 kg DIET: Heart Healthy No PO recorded EST. NEEDS: COPD, wound Calorie: 8156-2858 kcal/day (30-35 kcal/kg BW) Protein: 75-95 g/day (1.2-1.5 g/kg BW) NUTRITION DIAGNOSIS: 1.) Increased nutrient needs related to wound healing and chronic illnesses as evidenced by ongoing treatment for wound on right leg and COPD. NUTRITION INTERVENTION: 1) Add Ensure BID to ensure adequate protein and calorie intake. MONITOR / EVAL: PO intake, wt, GI, wound, labs, nutrition status, POC. Will continue to monitor per moderate nutritional risk guidelines. Addendum: 01/11/17 at [address] Student documentation reviewed and I agree with the above assessment. Alonso Hewitt, MS, RDN, CD
--- NOTE | 2017-01-11 14:17 | NUR ---
Faxed H&P to Belgica Nunez at [facility] per [employer]ISTANT
--- NOTE | 2017-01-11 16:12 | NUR ---
C.Diff Positive/ Pain / Nausea / Pressure Ulcers: P: multiple liquid/green stools. Nausea. Reports 10/10 abdominal pain. I: Rec'd call from micro lab confirming C. Diff. Dificid 200mg PO given as ordered by Dr Lopez. Zofran 8mg IVP administered. Oxycontin ER 10mg PO was given for pain. E: pt remains on contact precautions, continues to be tender to lower abdomen and have liquid/green stools. Refusing meals, but able to have small amount of PO fluids. Repositioning for comfort. pt resting quietly with eyes closed at this time. P: pressure ulcers to sacrum and wound to R lower leg. I: patient requires encouragement for turning to keep pressure off sacrum to promote healing despite education to patient. Pt refused to have dressings to lower leg removed for assessment. WC nurse was notified. E: wound care nurse assessed wounds and redressed wound on R lower leg.
[2017-01-11] MEDS ORDERED: Vancomycin Inj 500 MG in 0.9% Sodium Chloride 100 ML IV SCH (17:00)
--- NOTE | 2017-01-11 17:26 | NUR ---
Wound Care Wound evaluation order received,pt sen at bedside. 66 yo female admitted for possible c diff, currently resides at [facility] and is being followed at the wound center. The patient has a large wound on the left leg. The wound consists of an area of partial skin necrosis and skin loss. There is a central area of full-thickness wound where the incision and skin debridement was. The area of the wound measures approximately 16.5 cm in length and 20 cm. This area is non excisionally debrided with #10 blade and forceps, redressed with abd pads and kerlix wrap. Patient is admitted with numerous pressure ulcers. At her right butler she has 3 unstageable ulcers (POA)where her nylon was tight. She also has 2 stage 2 ulcers at her sacrum and right buttock (POA). Recommend mepilex dressing to the sacrum and buttock, pt on a CCU bed. Dressings can be changed by nursing. Addendum: 01/11/17 at 1737 by EDUAR MUNOZ Mepilex only to sacrum if loose stooling stops otherwise shield wipes and critic aid.
--- NOTE | 2017-01-11 18:44 | PCM.PNMED ---
Subjective Date of Service Jan 11, 2017 Subjective 66-year-old woman with history of COPD, psoriasis, history of vascular disease, recent antibiotic treatment for leg wound presents with 3 days of abdominal pain , diarrhea and septic shock. Patient states that she feels better today. Continues to have diffuse abdominal pain. She localizes this to the right epigastrium and right upper quadrant, but also bilateral lower quadrants. Denies any urinary symptoms. Radial respiratory symptoms. She is generally weak. Appetite is present. Exam Vital Signs Vital Sign - Last Date Time Temp Pulse Resp B/P Pulse Ox O2 Delivery O2 Flow Rate FiO2 01/11/17 17:18 36.8 100 13 106/56 94 Room Air 01/11/17 08:25 2.00 Intake and Output 01/10/17 01/10/17 01/11/17 Cumulative From/Thru 15:00 23:00 07:00 01/10/17 15:14 - 01/11/17 05:11 Intake Total 3000 ml 1423 ml 4423 ml Output Total 450 ml 450 ml Balance 3000 ml 973 ml 3973 ml Intake Oral 300 ml 300 ml IV Total 3000 ml 1123 ml 4123 ml Output Urine Total 450 ml 450 ml # Bowel Movements 2 2 Exam General: Chronically ill-appearing woman, slightly fatigued but no acute distress HEENT: sclerae anicteric, oral mucosa moist Neck: Supple, no adenopathy, no JVD Chest: Generally clear to auscultation Cardiac: S1S2, regular, no murmur Abdomen: BS present, diffuse tenderness to palpation, no rigidity, no rebound Extremities: 5 x 15 cm stage III ulceration of right anterior lateral tibial area. Small decubiti present near tibial plateau, under bandage line. Twol stage II decubiti 1-2 cm on sacrum. Neuro: A&O, cranial nerves symmetric, motor strength 4+/5, coordination grossly normal IVs and Medications Medications Reviewed: Medications were reviewed in detail Lab and Diagnostics Result Diagram: 01/11/17 0500 01/11/17 0500 Microbiology Cultures of blood: No growth so far Cultures of Urine : Greater than 100,000 colony counts gram-negative guicho probable Escherichia coli Name: OSMAN WOLFE Age/Sex: 66/F Attend Dr: Rolando Hadley MD Acct: [id number] Unit: [id number] Status: ADM IN Location: CCU [id number] Re01/10/17 Disch: Specimen: [id number] Collected: 01/10/17 Status: COMP Req#: [id number] Received: 01/10/17 Source: STOOL Sp Desc : Subm Dr: Walter Espinal MD Ordered: Jeff KOLB DNA PCR Comments: Collected by Nurse/Unit? Y/N Y Procedure Result Verified Site Microbiology HOLLY Jeff CHARLTON PCR STOOL Final 01/11/17-1320 CDIF DNA BY PCR POSITIVE X-Rays, CTs and MRIs PROCEDURE: CT ABDOMEN AND PELVIS WITHOUT CONTRAST ([id number]) IMPRESSION: 1. Diffuse colonic wall thickening consistent with colitis. Differential diagnoses include infectious colitis, pseudomembranous colitis, inflammatory disease and ischemic colitis. Recommend clinical correlation. 2. There is soft tissue stranding in the right abdomen primarily around the cecum. The appendix and terminal ileum are normal. 3. Atherosclerosis in the abdominal aorta. The distal aortic lumen is mildly narrowed just above the bifurcation. 4. Small right effusion. 5. Distended gallbladder with possible tiny gallstones. 6. A couple of hyperdense nodules in the inferior pole of the left kidney, probably small hyperdense cysts. Recommend nonurgent renal ultrasound to confirm cystic nature when feasible. Dictated by: Gisella Montana M.D. on 01/10/2017 at 17:41 PROCEDURE: X-RAY CHEST ONE VIEW ([id number]) IMPRESSION: Right-sided central venous catheter as above. Mild increased pulmonary vascularity and chronic interstitial changes. Dictated by: Linda Weeks M.D. on 01/10/2017 at 16:16 . Assessment & Plan #- Septic shock : Acute, present on admission. SIRS criteria including leukocytosis, tachycardia 116, blood pressure 71/47 on admission. Organ dysfunction based on lactic acid 5.8, acute kidney injury with serum creatinine 2.3 on admission. Due to C. difficile colitis and possible pyelonephritis. High risk for resistant organisms due to recent anabolic exposure. - Norepinephrine drip and titrate for MAP above 65; aggressive crystalloid hydration - Sepsis bundles ( See orders). - CCU admit and monitoring . #. C. difficile Colitis : CT scan finding compatible with ischemic versus infectious . - Fidaxomicin Rx - Continue IV metronidazole until clinically stable - Enteric precautions #. Urinary tract infection, acute. Patient has no symptoms. Presumed pyelonephritis in setting of overall septicemia. - Continue Zosyn; discontinue vancomycin - Infectious disease consult #. Acute renal failure : His admission serum creatinine 2.3. Likely prerenal azotemia due to dehydration, septic shock. - Aggressive fluid hydration. - Monitor renal function and electrolytes closely. # Metabolic acidosis Lacticemia, anion gap 21 on admission : - Resolving with hydration and treatment of sepsis #. Elevated troponin : Likely due to hypotension /septic shock . Patient has no angina - Follow clinically, no workup for ischemic cardiac disease at this time #. Sacral decubitus ulcer, right upper tibial area decubitus ulcer, stage II, present on admission. - Wound care ordered #. Right leg wound, stage III, present on admission. - Wound care ordered #. Acute encephalopathy : Toxic and metabolic - Resolved #. Neuropathy chronic, - Continue gabapentin - Minimize opioid use Venous thromboembolism prophylaxis: Heparin and SCD CODE STATUS is full Disposition: Expect several more days of acute treatment of septic shock due to C. difficile colitis and associated pyelonephritis. Pain Evaluation: Adequate Pain Control VTE Prophylaxis: Sub-Q Heparin (Unfractionated) VTE Mechanical Devices: Intermittant Pneumatic CD Resuscitation Status: CPR: Attempt Resuscitation Time spent 45 minutes Russell Lynn MD Jan 11, 2017 18:44
[2017-01-12] VITALS: BP 107/52; PULSE 93; RESP 14; O2SAT 94
[2017-01-12] MEDS: 0.9% Sodium Chloride 1,000 ML IV SCH ×4 (00:53→23:38)
[2017-01-12] MEDS: Heparin 5,000 Unit/mL Inj SUBQ SCH ×3 (00:53→17:04)
[2017-01-12] MEDS: Ondansetron 2 mg/mL 2 mL Inj IVPUSH PRN (02:18)
[2017-01-12 04:00] VITALS: BP 111/62; PULSE 93; RESP 16; O2SAT 95
--- NOTE | 2017-01-12 04:57 | NUR ---
GI, hypotension Vs as noted. Tele sinus rhythm with PACs and hr 80s. Levophed gtt unchanged at 0.2mcg/kg/min with blood pressures 90s to 100s systolic. Having frequent green mucous like stools, sometimes incontinent/ sometimes not. Complains of abdominal discomforts/ cramping with activity.
[2017-01-12] MEDS: Piperacillin-Tazo 3.375 Gm Inj 3.375 GM in Dextrose 5% Minibag Plus 50 ML IV SCH (07:50)
[2017-01-12] MEDS: oxyCODONE ER 10 mg ER12 Tablet PO SCH ×2 (07:58→20:12)
[2017-01-12 08:00] VITALS: BP 114/54; PULSE 102; RESP 13; O2SAT 95
[2017-01-12 09:07] LABS: Mean Corpuscular Hemoglobin 29.9 pg (27.0-35.0); Mean Corpuscular Volume 89.6 fL (81-100); Platelet Count 419 bil/L (150-400)
[2017-01-12 09:38] LABS: NEUTROPHILS % (AUTO) 76 % (40-74)
[2017-01-12 09:39] LABS: BASOPHILS % (AUTO) 0 % (0-3); EOSINOPHILS % (AUTO) 0 % (0-5); MONOCYTES % (AUTO) 13 % (4-12)
[2017-01-12] MEDS ORDERED: CeFAZolin Inj 1 GM in IV Premix 1 EACH IV SCH (10:30)
[2017-01-12] MEDS: Norepineph 8,000 mCg/250 mL NS 8,000 MCG in IV Premix 1 EACH IV SCH ×2 (11:18→22:14)
[2017-01-12] MEDS ORDERED: Lactated Ringer's 500 ML IV ONE (11:55)
[2017-01-12 12:00] VITALS: BP 114/50; PULSE 93; RESP 17; O2SAT 94
[2017-01-12 12:28] LABS: APPEARANCE,URINE HAZY (CLEAR,HAZY); COLOR,URINE YELLOW (YELLOW); OCCULT BLOOD,URINE NEGATIVE (NEGATIVE); UROBILINOGEN,URINE NORMAL (NORMAL)
[2017-01-12] MEDS ORDERED: Lactated Ringer's 1,000 ML IV ONE (12:52)
--- NOTE | 2017-01-12 13:08 | CONS ---
[address] [address] CONSULTATION REPORT PATIENT: OSMAN WOLFE : 1950 MR#: [id number] ADMIT: 01/10/2017 JOB ID: [id number] DATE OF SERVICE: 01/12/2017 PULMONARY CRITICAL CARE CONSULTATION NOTE: The patient is a 66-year-old woman seen in consultation at the request of Dr. Luis E Lynn for septic shock due to Clostridium difficile colitis. HISTORY OF PRESENT ILLNESS: The patient is a 66-year-old woman with multiple medical problems including history of lupus disease, COPD and ongoing tobacco use, history of stroke who was recently hospitalized in late November for a lower extremity cellulitis requiring debridement and antibiotic therapy. She was discharged to a nursing facility where she has been for the last couple of weeks. She continued oral tobramycin and linezolid for about seven days after discharge so that probably ended just over seven days ago. She presented to the hospital on January 10 with nausea, vomiting, diarrhea and abdominal pain. She was found to have severe leukocytosis, acute kidney injury and her C. difficile toxin was positive on stool. She was started on fidaxomicin and Flagyl per Dr. Lopez's recommendation. She also had some pyuria in her urine for which she was started on antibiotics and eventually grew E. coli. She has been on pressors since admission, currently on norepinephrine 0.2 mcg. She has so far received 7 L of fluid in the last 24 hours. Symptom eaton she says her abdominal pain is much better. She continues to have very watery diarrhea-seven stools yesterday. There is no blood in her stool. She denies any fevers, chills, chest pain. She says her nausea and vomiting have resolved after admission. Overall she does feel better. She denies having to take any steroids or immunosuppressants for her lupus in the recent past. She was on a couple of rounds of steroids in the last year for COPD but that was not recently. PAST MEDICAL HISTORY: 1. Reported history of lupus-details unknown. 2. Peripheral neuropathy. 3. Ongoing tobacco use and history of "COPD". 4. History of stroke. 5. Recent lower extremity cellulitis status post debridement being followed [facility]. SOCIAL HISTORY: Ongoing 10 pack a day smoker with 50 year history of smoking. She currently lives at [facility] but was previously living at home. FAMILY HISTORY: No family history of COPD in 10 siblings or children. REVIEW OF SYSTEMS: A 10 point review of systems is positive as mentioned above in HPI. Remaining review of systems is negative. Specifically positive for recent history of nausea, vomiting, abdominal pain, and diarrhea. She also has a cough. Denies fevers, chills, weight loss, chest pain. PHYSICAL EXAMINATION: Vital signs reviewed. Temperature 37, pulse 93, respirations 16, BP 111/62, sats 95% on room air. General: Alert and oriented. Answering questions appropriately. She is slim and pale, chronically ill appearing. Skin: She has a large patch of alopecia on her scalp. No other rash. Skin is pale and dry. Eyes: Pupils equal and reactive. HEENT: Oral mucosa is moist. No ulcers or thrush. Neck: No cervical lymphadenopathy or mass. Chest: Clear to auscultation bilaterally. Abdomen: Mildly tender diffusely without rebound or guarding. No organomegaly. Extremities: No cyanosis, clubbing or edema. Right lower extremity is being wrapped by wound care right now for her cellulitis and reportedly healing well with no problems. Labs reviewed and WBC on admission was 19.4. It is up to 26.4 currently. Chemistry also reviewed and notable for creatinine initially 2.3, now down to normal 0.84. Other electrolytes normal. Lactate was 6 on admission and is down to 1.1 now. Calcium is low at 5.8. Procalcitonin on admission was 32.8, and today is down to 8.9. IMAGING: CT of the abdomen and pelvis-report indicates diffuse colonic wall thickening consistent with colitis. Lungs are clear. Chest x-ray is clear. Shows a scoliosis but otherwise clear pulmonary parenchyma. ASSESSMENT AND RECOMMENDATIONS: 1. Severe Clostridium difficile colitis. 2. Septic shock due to #1. 3. Acute kidney injury-improving. 4. Right lower extremity cellulitis-improving on therapy. RECOMMENDATIONS: This 66-year-old chronically ill woman is presenting with severe C. difficile colitis based on her elevated creatinine and white blood cell count. She is on therapy with fidaxomicin and Flagyl and oral metronidazole and clinically seems to be improving. Her procalcitonin is down significantly but her white count has risen a little bit. She remains on pressors which is concerning to me-norepinephrine is still at 0.2 mcg. I would like to give her a fluid bolus of lactated Ringer's today and see if that helps us wean the pressors at all. She is also getting maintenance normal saline at 100 cc an hour to make up for loss from diarrhea. She was started on antibiotics for her pyuria but I am really not convinced that this is a source of infection. She is completely asymptomatic with regard to this. I would like to stop her Zosyn and cefazolin and see if she responds better to therapy with this being gone. If she has persistent vasopressor requirement despite adequate fluid resuscitation, we perhaps can consider therapy for adrenal insufficiency or workup for it. I discussed with Dr. Lynn and defer this to him at this point. Respiratory status is stable on room air currently without any problems. She is on appropriate DVT prophylaxis and GI prophylaxis is not indicated. With regards to code status, the patient has a POLST form in the chart that indicates limited interventions and no intubation. On talking to the patient, she said she wants us to "try CPR" but does not want a tube. TIME: Critical care time is 60 minutes.
--- NOTE | 2017-01-12 15:49 | NUR ---
Wound Care Patient seen for wound care of right lower leg today. Drainage on dressing removed is serosanquinous and moderate in nature. Right butler wound is stable and continues to granulate. Wound was cleaned with gauze and saline then redressed with xeroform, abd pads and kerlix then coban wrapped. These can be changed by nursing in 48 hours, wound will recheck on this patient Sunday. Pt still resistant to FMS, nursing reports numerous watery stools. Reiterated to patient benefit of FMS especially with regard to stage 2 ulcers at her backside but patient continues to refuse. Stressed need to change positions.
[2017-01-12 16:00] VITALS: BP 107/57; PULSE 88; RESP 13; O2SAT 94
--- NOTE | 2017-01-12 16:28 | PCM.PNMED ---
Subjective Date of Service Jan 12, 2017 Subjective 66-year-old woman with history of COPD, psoriasis, history of vascular disease, recent antibiotic treatment for leg wound presents with 3 days of abdominal pain , diarrhea and septic shock. Patient continues to feel weak with diffuse abdominal pain. She localizes this to the right epigastrium and right upper quadrant, but also bilateral lower quadrants. Diarrhea is copious, she refuses FMS despite counseling regarding her pre-existing sacral decubiti. Denies any urinary symptoms. Exam Vital Signs Vital Sign - Last Date Time Temp Pulse Resp B/P Pulse Ox O2 Delivery O2 Flow Rate FiO2 01/12/17 12:00 36.6 93 17 114/50 94 Room Air 01/11/17 08:25 2.00 Intake and Output 01/11/17 01/11/17 01/12/17 Cumulative From/Thru 15:00 23:00 07:00 01/10/17 15:14 - 01/12/17 05:30 Intake Total 2323 ml 1483 ml 8229 ml Output Total 400 ml 300 ml 1150 ml Balance 1923 ml 1183 ml 7079 ml Intake Oral 700 ml 50 ml 1050 ml IV Total 1623 ml 1433 ml 7179 ml Output Urine Total 400 ml 300 ml 1150 ml # Bowel Movements 5 7 Exam General: Chronically ill-appearing woman, slightly fatigued but no acute distress HEENT: sclerae anicteric, oral mucosa dry Neck: Supple, no JVD Chest: Generally clear to auscultation Cardiac: S1S2, regular, no murmur Abdomen: BS present, diffuse tenderness to palpation, no rigidity, no rebound Extremities: Right lower extremity bandage today not inspected. Stage II sacral decubiti chronic. Neuro: A&O somewhat dysphoric, cranial nerves symmetric, motor strength 4+/5, coordination grossly normal IVs and Medications Medications Reviewed: Medications were reviewed in detail Lab and Diagnostics Procalcitonin: 32.9, 22.9, 9.0 over first 3 days Serum creatinine trend: 2.3, 1.5, 0.8 over first 3 days Result Diagram: 01/12/1790301/12/17903 Microbiology Cultures of blood: No growth so far Cultures of Urine 01/10: Greater than 100,000 colony counts gram-negative guicho probable Escherichia coli Repeat urine specimen 01/12 - no significant pyuria Name: OSMAN WOLFE Age/Sex: 66/F Attend Dr: Rolando Hadley MD Acct: [id number] Unit: [id number] Status: ADM IN Location: [facility] [id number] Re01/10/17 Disch: Specimen: [id number] Collected: 01/10/17 Status: COMP Req#: [id number] Received: 01/10/17 Source: STOOL Sp Desc : Subm Dr: Walter Espinal MD Ordered: C DIFF DNA PCR Comments: Collected by Nurse/Unit? Y/N Y Procedure Result Verified Site Microbiology HOLLY C DIF PCR STOOL Final 01/11/17-1319 CDIF DNA BY PCR POSITIVE X-Rays, CTs and MRIs PROCEDURE: CT ABDOMEN AND PELVIS WITHOUT CONTRAST ([id number]) IMPRESSION: 1. Diffuse colonic wall thickening consistent with colitis. Differential diagnoses include infectious colitis, pseudomembranous colitis, inflammatory disease and ischemic colitis. Recommend clinical correlation. 2. There is soft tissue stranding in the right abdomen primarily around the cecum. The appendix and terminal ileum are normal. 3. Atherosclerosis in the abdominal aorta. The distal aortic lumen is mildly narrowed just above the bifurcation. 4. Small right effusion. 5. Distended gallbladder with possible tiny gallstones. 6. A couple of hyperdense nodules in the inferior pole of the left kidney, probably small hyperdense cysts. Recommend nonurgent renal ultrasound to confirm cystic nature when feasible. Dictated by: Gisella Montana M.D. on 01/10/2017 at 17:41 PROCEDURE: X-RAY CHEST ONE VIEW ([id number]) IMPRESSION: Right-sided central venous catheter as above. Mild increased pulmonary vascularity and chronic interstitial changes. Dictated by: Linda Weeks M.D. on 01/10/2017 at 16:16 . Assessment & Plan #- Septic shock : Acute, present on admission. SIRS criteria including leukocytosis 19.4, 22% bandemia, tachycardia 116, blood pressure 71/47 on admission. Organ dysfunction based on lactic acid 5.8, acute kidney injury with serum creatinine 2.3 on admission. Due to severe C. difficile colitis. High mortality risk. Blood pressure stabilizing within 48 hours but continuing to require pressors. Procalcitonin declining. - Norepinephrine drip and titrate for MAP above 65; aggressive crystalloid hydration - Sepsis bundles ( See orders). - CCU admit and monitoring . #. Severe C. difficile Colitis: Copious stool output, diffuse abdominal pain but no ileus or surgical indication. - Fidaxomicin Rx - Continue IV metronidazole until clinically stable - Enteric precautions - FMS recommended to patient but she refuses #. Urinary tract infection, acute. Patient has no symptoms. Initially treated with Zosyn. Pyelonephritis is ruled out by lack of pyuria on repeat specimen. - Discontinue Zosyn #. Acute renal failure : His admission serum creatinine 2.3. Likely prerenal azotemia due to dehydration, septic shock. Improving with fluid resuscitation - Monitor renal function and electrolytes closely. # Metabolic acidosis Lacticemia, anion gap 21 on admission : - Resolving with hydration and treatment of sepsis #. Elevated troponin : Likely due to hypotension /septic shock . Patient has no angina - Follow clinically, no workup for ischemic cardiac disease at this time #. Sacral decubitus ulcer, right upper tibial area decubitus ulcer, stage II, present on admission. - Wound care ordered #. Right leg wound, stage III, present on admission. - Wound care ordered #. Acute encephalopathy : Toxic and metabolic - Resolved #. Neuropathy chronic, - Continue gabapentin - Minimize opioid use Venous thromboembolism prophylaxis: Heparin and SCD CODE STATUS is full Disposition: Expect several more days of acute treatment of septic shock due to severe C. difficile colitis. VTE Prophylaxis: Sub-Q Heparin (Unfractionated) VTE Mechanical Devices: Intermittant Pneumatic CD Resuscitation Status: CPR: Attempt Resuscitation Time spent 35 minutes Russell Lynn MD Jan 12, 2017 16:28
[2017-01-12] MEDS ORDERED: Ergocalciferol (Vit D2) 50,000 Unit Capsule PO ONE (16:30)
[2017-01-12] MEDS ORDERED: Vancomycin Serum Trough XX ONE (16:30)
--- NOTE | 2017-01-12 17:17 | NUR ---
Hemodynamics/Loose stool Pt remains on levophed. Tried to titrate down during shift and after bolus, but pt remains requiring pressors (see CCU flow sheet). Pt also still having multiple loose, incontinent stools throughout shift. Pt refusing FMS. Skin excoriated on sacrum and buttocks. Using barrier wipes and [employer] Barrier cream every hour or two when cleaning patient. Q2h turns continue. Pt A&O x3, using call light appropriately.
[2017-01-12 20:30] VITALS: BP 105/54; PULSE 78; RESP 16; O2SAT 95
--- NOTE | 2017-01-12 22:44 | NUR ---
Sedation: Pt at start of shift was restless moving legs and rocking head back and forth. Pt was coughing and struggling against vent. Fentanyl bolus of 50mcg and 3ml bolus of propofol was given pt calmed down and was relaxed for about 45 mins. Around 2029 pt was very agitated coughing hard with bronchospasms vent alarming. Pt was purple from mid chest up propofol and fentanyl was boluses repeated pt relaxed oral care and ET tube suctioned propofol was titrated up to 25mcg/kg/min pt has been more relaxed heart rate has dropped from 105 to mid 80s and Spo2 has climbed to 96-98% from 91-93% when fighting vent. Pt now breathing slightly above vent with occasional cough. Pt does open eyes and respond with blinking eyes and turning head. At beginning of shift pt was able to follow commands by squeeze fingers with weak health teacher with right hand and slight twitch of fingers in left hand. Addendum: 01/12/17 at 3224 by TORO BURGESS RN Above note entered on wrong pt.
--- NOTE | 2017-01-12 22:59 | NUR ---
GI: Pt's abd is firm and distended with increased pain with palpation. Pt has had poor appetite and has not eaten much. Pt continues to have green mucus incontinent stool. Refuses to have FMS placed barrier cream applied heavily to sacral and deepali areas to protect open sacral wounds. Pt c/o pain to right lower leg was elevated with pillow pt had just received pain medication 1 1/2 hours prior. SCDs were on and removed for short time which helped with discomfort. Pain was rated 3-4/10 and after pillow and removing SCDs pain down to a 2/10.
--- NOTE | 2017-01-12 23:10 | NUR ---
BP: At beginning of shift BP was 110s/50-60s with MAP mid 60-70s levophed was titrated down to .16mcg/kg/min and pt tolerated well at 2300 BP dropped to 56/45 with MAp of 50 levophed titrated up to .2mcg/kg/min will continue to titrated down.
[2017-01-13 00:30] VITALS: BP 106/60; PULSE 83; RESP 12; O2SAT 94
[2017-01-13] MEDS: Heparin 5,000 Unit/mL Inj SUBQ SCH ×3 (01:31→17:18)
[2017-01-13 04:30] VITALS: BP 112/56; PULSE 89; RESP 14; O2SAT 94
[2017-01-13] MEDS: 0.9% Sodium Chloride 1,000 ML IV SCH ×2 (05:07→09:56)
[2017-01-13 05:26] LABS: Mean Corpuscular Hemoglobin 29.4 pg (27.0-35.0); Mean Corpuscular Volume 86.6 fL (81-100); Platelet Count 473 bil/L (150-400)
[2017-01-13 05:45] LABS: BASOPHILS % (AUTO) 0.2 % (0-3); EOSINOPHILS % (AUTO) 1.5 % (0-5); MONOCYTES % (AUTO) 8.9 % (4-12)
[2017-01-13 07:26] VITALS: BP 97/76; PULSE 78; RESP 16; O2SAT 97
[2017-01-13] MEDS: oxyCODONE ER 10 mg ER12 Tablet PO SCH ×2 (07:30→21:38)
[2017-01-13] MEDS: Norepineph 8,000 mCg/250 mL NS 8,000 MCG in IV Premix 1 EACH IV SCH (09:57)
[2017-01-13] MEDS ORDERED: Calcium GLUCO 10% (mEq) Inj 9.3 MEQ in Dextrose 5% 100 ML IV ONE (10:15)
[2017-01-13] MEDS ORDERED: Sodium Bicarb 8.4% Inj 150 MEQ in Water Sterile for Injection 1,000 ML IV ONE (10:35)
--- NOTE | 2017-01-13 11:15 | PROG NOTE ---
[address] [address] PROGRESS NOTE PATIENT: OSMAN WOLFE : 1950 MR#: [id number] ADMIT: 01/10/2017 JOB ID: [id number] DATE: 01/13/2017 PULMONARY CRITICAL CARE PROGRESS NOTE: The patient is a 66-year-old woman seen for septic shock and Clostridium difficile colitis. INTERVAL HISTORY: She remains on norepinephrine at 0.15 mcg. Continues to have diarrhea and some abdominal pain and cramping. She does say her pain is a little bit better. Denies any fevers, chills, chest pain. REVIEW OF SYSTEMS: As above. PHYSICAL EXAMINATION: Vital signs reviewed. Temperature 36.8, pulse 78, respirations 16, BP 97/76, sats 97% on room air. General: Pale, elderly woman, lying in bed, appears slightly uncomfortable. Chest is clear. Abdomen: She is very tender to palpation. Cultures only positive for C. difficile toxin on January 10. LABORATORIES: Reviewed and show WBC down to 20.8 from . Chemistry shows creatinine is normalized completely. Calcium remains 6.1. Lactate was last checked yesterday and was down to 1.4. Procalcitonin for today is still pending but as of yesterday was down to 9 from . I also ordered cortisol for today that is still pending. ASSESSMENT AND RECOMMENDATIONS: 1. Septic shock. 2. Severe Clostridium difficile colitis. 3. Acute kidney injury--improving. 4. Right lower extremity cellulitis, November 2016--status post two debridement, improving. This 66-year-old chronically ill woman with a history of prior stroke, history of lupus in the past and ongoing tobacco use and COPD is presenting with severe Clostridium difficile colitis after a recent hospitalization for right lower extremity cellulitis requiring debridement in November, as well as prolonged antibiotics subsequently. She is on fidaxomicin and PO Flagyl per Dr. Lopez's recommendations since January 10. She is still having diarrhea, however, and remains on norepinephrine at 0.15 mcg, which is a moderate dose. This has not changed significantly since yesterday. However, her white blood cell count is trending down, procalcitonin is improving, and her renal function has pretty much returned completely to normal. All of these are good signs of improvement but the pressor requirement still concerns me somewhat. At this point, I am going to replete her calcium, which is quite low. She does seem to be developing and non gap metabolic acidosis from saline infusions so I am going to stop the saline and switch her to bicarb drip. I am hoping with improvement in her pH this also contributes to blood pressure improvement. I think we should just watch her blood pressure and overall condition, but if she showing worsening white blood cell count, renal function, rising lactate or other signs of worsening C. difficile colitis then a surgical consultation would be in order. I am also checking a morning cortisol to see if there is any evidence of adrenal insufficiency that would explain her persistent pressor requirement. We stopped all of her antibiotics for possible urinary tract infection since her repeat UA yesterday did not show any white cells. We are suspecting that the initial sample was contaminated and not a clean catch. She is on appropriate DVT prophylaxis. She is a modified code as documented on my note from January 12. Critical care time is 45 minutes.
[2017-01-13 12:52] VITALS: BP 93/68; PULSE 84; RESP 20; O2SAT 96
--- NOTE | 2017-01-13 16:42 | PCM.PNMED ---
Subjective Date of Service Jan 13, 2017 Subjective 66-year-old woman with history of COPD, psoriasis, history of vascular disease, recent antibiotic treatment for leg wound presents with 3 days of abdominal pain , diarrhea and septic shock. Patient continues to feel weak and complaining of abdominal pain. Abdominal pain is diffuse. Diarrhea continues. Denies any urinary symptoms. Exam Vital Signs Vital Sign - Last Date Time Temp Pulse Resp B/P Pulse Ox O2 Delivery O2 Flow Rate FiO2 01/13/17 12:52 36.7 84 20 93/68 96 Room Air 01/11/17 08:25 2.00 Intake and Output 01/12/17 01/12/17 01/13/17 Cumulative From/Thru 15:00 23:00 07:00 01/10/17 15:14 - 01/13/17 06:09 Intake Total 4002 ml 2936 ml 65769 ml Output Total 400 ml 350 ml 1900 ml Balance 3602 ml 2586 ml 13212 ml Intake Oral 540 ml 560 ml 2150 ml IV Total 3462 ml 2376 ml 45637 ml Output Urine Total 400 ml 350 ml 1900 ml # Bowel Movements 4 3 14 Exam General: Chronically ill-appearing woman, slightly fatigued but no acute distress HEENT: sclerae anicteric, oral mucosa moist Neck: Supple, no JVD Chest: No wheezes rales or rhonchi Cardiac: S1S2, regular, no murmur Abdomen: BS present, diffuse tenderness to palpation, no rigidity, no rebound Extremities: Right lower extremity bandage today not inspected. Stage II sacral decubiti chronic. Neuro: dysphoric but alert and oriented, cranial nerves symmetric, motor strength 4+/5, no hyperreflexia or tetany IVs and Medications Medications Reviewed: Medications were reviewed in detail Lab and Diagnostics Result Diagram: 01/13/17 0510 01/13/17 0510 Microbiology Cultures of blood: No growth so far Cultures of Urine 01/10: Greater than 100,000 colony counts gram-negative guicho probable Escherichia coli Repeat urine specimen 01/12 - no significant pyuria Name: AIDENOSMAN A Age/Sex: 66/F Attend Dr: Rolando Hadley MD Acct: [id number] Unit: [id number] Status: ADM IN Location: [facility] [id number] Re01/10/17 Disch: Specimen: [id number] Collected: 01/10/17 Status: COMP Req#: [id number] Received: 01/10/17 Source: STOOL Sp Desc : Subm Dr: Walter Espinal MD Ordered: C DIFF DNA PCR Comments: Collected by Nurse/Unit? Y/N Y Procedure Result Verified Site Microbiology HOLLY C DIF PCR STOOL Final 01/11/17-0 CDIF DNA BY PCR POSITIVE X-Rays, CTs and MRIs PROCEDURE: CT ABDOMEN AND PELVIS WITHOUT CONTRAST ([id number]) IMPRESSION: 1. Diffuse colonic wall thickening consistent with colitis. Differential diagnoses include infectious colitis, pseudomembranous colitis, inflammatory disease and ischemic colitis. Recommend clinical correlation. 2. There is soft tissue stranding in the right abdomen primarily around the cecum. The appendix and terminal ileum are normal. 3. Atherosclerosis in the abdominal aorta. The distal aortic lumen is mildly narrowed just above the bifurcation. 4. Small right effusion. 5. Distended gallbladder with possible tiny gallstones. 6. A couple of hyperdense nodules in the inferior pole of the left kidney, probably small hyperdense cysts. Recommend nonurgent renal ultrasound to confirm cystic nature when feasible. Dictated by: Gisella Montana M.D. on 01/10/2017 at 17:41 PROCEDURE: X-RAY CHEST ONE VIEW ([id number]) IMPRESSION: Right-sided central venous catheter as above. Mild increased pulmonary vascularity and chronic interstitial changes. Dictated by: Linda Weeks M.D. on 01/10/2017 at 16:16 . Assessment & Plan #- Septic shock : Acute, present on admission. SIRS criteria including leukocytosis 19.4, 22% bandemia, tachycardia 116, blood pressure 71/47 on admission. Organ dysfunction based on lactic acid 5.8, acute kidney injury with serum creatinine 2.3 on admission. Due to severe C. difficile colitis. High mortality risk. Blood pressure stabilizing within 48 hours but continuing to require pressors. Procalcitonin declining. White blood cell count peaked at 26.8 on day 2 and is now declining. - Norepinephrine drip and titrate for MAP above 65; taper as tolerated - Continue aggressive crystalloid hydration - Sepsis bundles ( See orders). - CCU admit and monitoring . #. Severe C. difficile Colitis: Copious stool output, diffuse abdominal pain but no ileus or surgical indication. - Fidaxomicin Rx - Flagyl discontinued - Enteric precautions - FMS recommended to patient but she refuses Metabolic acidosis Lacticemia, anion gap 21 on admission : - Resolved, now with hyperchloremic non-gap acidosis secondary to fluid resuscitation - Switch to bicarbonate based IV fluid Chronic, resolving and/or stable problems: #. Acute renal failure : His admission serum creatinine 2.3; resolved to 0.59. Likely prerenal azotemia due to dehydration, septic shock. Improving with fluid resuscitation - Resolved. #. Possible Urinary tract infection, acute. Patient has no symptoms. Initially treated with Zosyn. Pyelonephritis is ruled out by lack of pyuria on repeat specimen. - Discontinue Zosyn #. Elevated troponin : Likely due to hypotension /septic shock . Patient has no angina - Follow clinically, no workup for ischemic cardiac disease at this time #. Sacral decubitus ulcer, right upper tibial area decubitus ulcer, stage II, present on admission. - Wound care ordered #. Right leg wound, stage III, present on admission. - Wound care ordered #. Acute encephalopathy : Toxic and metabolic - Resolved #. Neuropathy chronic, - Continue gabapentin - Minimize opioid use Venous thromboembolism prophylaxis: Heparin and SCD CODE STATUS is full Disposition: Expect several more days of acute treatment of septic shock due to severe C. difficile colitis. VTE Prophylaxis: Sub-Q Heparin (Unfractionated) VTE Mechanical Devices: Intermittant Pneumatic CD Resuscitation Status: CPR: Attempt Resuscitation Time spent 40 minutes spent in patient assessment, care coordination and review of data with pre sales technical consultant. Russell Lynn MD Jan 13, 2017 16:42
[2017-01-13 17:15] VITALS: BP 106/51; PULSE 97; RESP 14; O2SAT 94
--- NOTE | 2017-01-13 18:28 | NUR ---
Stool/Activity/Hypotension: Pt incontinent of two large liquid/green stools. Pt needs encouragement for Q2 turns to promote healing to sacral pressure ulcers. Pt remains on Levo 0.1 mcg/kg/hr and maintaining map in mid 60's.
[2017-01-13 20:30] VITALS: BP 108/53; PULSE 97; RESP 13; O2SAT 93
[2017-01-14 00:30] VITALS: BP 103/61; PULSE 96; RESP 14; O2SAT 97
[2017-01-14] MEDS: Heparin 5,000 Unit/mL Inj SUBQ SCH ×3 (01:24→16:30)
[2017-01-14] MEDS: metroNIDAZOLE Inj 500 MG in IV Premix 1 EACH IV SCH ×3 (04:22→21:32)
[2017-01-14 04:30] VITALS: BP 94/55; PULSE 96; RESP 12; O2SAT 97
[2017-01-14 04:31] LABS: BASOPHILS % (AUTO) 0.3 % (0-3); EOSINOPHILS % (AUTO) 2.4 % (0-5); MONOCYTES % (AUTO) 12.6 % (4-12); Mean Corpuscular Hemoglobin 29.2 pg (27.0-35.0); Mean Corpuscular Volume 88.6 fL (81-100); NEUTROPHILS % (AUTO) 69.7 % (40-74); Platelet Count 462 bil/L (150-400)
[2017-01-14 07:38] VITALS: BP 96/57; PULSE 95; RESP 14; O2SAT 97
[2017-01-14] MEDS: oxyCODONE ER 10 mg ER12 Tablet PO SCH ×2 (07:47→21:34)
[2017-01-14] MEDS ORDERED: Lactated Ringer's 1,000 ML IV ONE ×2 (10:14→21:21)
[2017-01-14] MEDS ORDERED: Lactated Ringer's 500 ML IV ONE (10:15)
[2017-01-14] MEDS ORDERED: KCl 40 mEq/100 mL (CENTRAL) 40 MEQ in IV Premix 1 EACH IV ONE (11:15)
--- NOTE | 2017-01-14 11:17 | DRSVH ---
PROCEDURE: X-RAY ABDOMEN DECUBITUS, LEFT INDICATIONS: Abdominal Pain TECHNIQUE: One view of the abdomen acquired. COMPARISON: None. FINDINGS: Technologist notes patient unable to tolerate positioning for exam Surgical changes and devices: None. Bowel: Visualized bowel gas pattern is normal. Soft tissues: No suspicious abdominal calcifications. Visualized solid organ contours appear normal in size. No image of nondependent soft tissues can be seen to evaluate for free air. Bones: No suspicious bony lesions. IMPRESSION: In this patient with abdominal pain and recent CT scan showing colitis and image could no t be obtained to rule in or out free air. No distention of bowel loops is seen in this film. Dictated by: Dudley Dodd M.D. on 01/14/2017 at 11:08 Approved by: Dudley Dodd M.D. on 01/14/2017 at 11:15
[2017-01-14 12:45] VITALS: BP 97/57; PULSE 105; RESP 14; O2SAT 96
[2017-01-14] MEDS: Norepineph 8,000 mCg/250 mL NS 8,000 MCG in IV Premix 1 EACH IV SCH (12:46)
--- NOTE | 2017-01-14 14:45 | NUR ---
HEMODYNAMICS/APPETITE Patient remains on Levophed at 0.03 mcg/kg/min, which maintains MAP >60, but SBP still occasionally below 90. Will continue to monitor and titrate Levophed gtt as tolerated. Patient reports lack of appetite. Refused breakfast, but did order small amount of food for lunch. Fluid intake remains adequate. Will continue to encourage nutrient intake PO as well.
--- NOTE | 2017-01-14 15:33 | PCM.PNMED ---
Subjective Date of Service Jan 14, 2017 Subjective 66-year-old woman with history of COPD, psoriasis, history of vascular disease, recent antibiotic treatment for leg wound presents on transfer from [facility] with 3 days of abdominal pain, diarrhea and septic shock. Patient continues to feel weak. Her chief complaint today is back and shoulder pains, which are chronic. In questioning she also endorses continued abdominal pain. Diarrhea continues, but the patient feels it is improving. She seems very fatigued with reduced affect. Exam Vital Signs Vital Sign - Last Date Time Temp Pulse Resp B/P Pulse Ox O2 Delivery O2 Flow Rate FiO2 01/14/17 12:45 36.9 105 14 97/57 96 Nasal Cannula 2.00 Intake and Output 01/13/17 01/13/17 01/14/17 Cumulative From/Thru 15:00 23:00 07:00 01/10/17 15:14 - 01/14/17 05:52 Intake Total 2780 ml 671 ml 64635 ml Output Total 325 ml 200 ml 2425 ml Balance 2455 ml 471 ml 87872 ml Intake Oral 700 ml 200 ml 3050 ml IV Total 2080 ml 471 ml 27919 ml Output Urine Total 325 ml 200 ml 2425 ml # Bowel Movements 2 1 17 Exam General: Chronically ill-appearing woman, slightly fatigued but no acute distress HEENT: sclerae anicteric, oral mucosa internally moist Neck: Supple, no JVD Chest: No wheezes rales or rhonchi Cardiac: S1S2, regular, no murmur Abdomen: BS present, diffuse mild tenderness to palpation of upper and lower quadrants, no rigidity, no rebound Extremities: Right lower extremity bandage. Stage II sacral decubiti chronic, not inspected to. Neuro: dysphoric but alert and oriented, cranial nerves symmetric, motor strength 4+/5, no hyperreflexia or tetany IVs and Medications Medications Reviewed: Medications were reviewed in detail Lab and Diagnostics Result Diagram: 01/14/1741901/14/17419 Microbiology Cultures of blood: No growth so far Cultures of Urine 01/10: Greater than 100,000 colony counts gram-negative guicho probable Escherichia coli Repeat urine specimen 01/12 - no significant pyuria Name: OSMAN WOLFE Age/Sex: 66/F Attend Dr: Rolando Hadley MD Acct: [id number] Unit: [id number] Status: ADM IN Location: U [id number] Re01/10/17 Disch: Specimen: [id number] Collected: 01/10/17 Status: COMP Req#: [id number] Received: 01/10/17 Source: STOOL Sp Desc : Subm Dr: Walter Espinal MD Ordered: Jeff KOLB DNA PCR Comments: Collected by Nurse/Unit? Y/N Y Procedure Result Verified Site Microbiology [facility] C DIF PCR STOOL Final 01/11/17-1320 CDIF DNA BY PCR POSITIVE X-Rays, CTs and MRIs PROCEDURE: CT ABDOMEN AND PELVIS WITHOUT CONTRAST ([id number]) IMPRESSION: 1. Diffuse colonic wall thickening consistent with colitis. Differential diagnoses include infectious colitis, pseudomembranous colitis, inflammatory disease and ischemic colitis. Recommend clinical correlation. 2. There is soft tissue stranding in the right abdomen primarily around the cecum. The appendix and terminal ileum are normal. 3. Atherosclerosis in the abdominal aorta. The distal aortic lumen is mildly narrowed just above the bifurcation. 4. Small right effusion. 5. Distended gallbladder with possible tiny gallstones. 6. A couple of hyperdense nodules in the inferior pole of the left kidney, probably small hyperdense cysts. Recommend nonurgent renal ultrasound to confirm cystic nature when feasible. Dictated by: Gisella Montana M.D. on 01/10/2017 at 17:41 PROCEDURE: X-RAY CHEST ONE VIEW ([id number]) IMPRESSION: Right-sided central venous catheter as above. Mild increased pulmonary vascularity and chronic interstitial changes. Dictated by: Linda Weeks M.D. on 01/10/2017 at 16:16 PROCEDURE: X-RAY ABDOMEN DECUBITUS, LEFT IMPRESSION: In this patient with abdominal pain and recent CT scan showing colitis and image could not be obtained to rule in or out free air. No distention of bowel loops is seen in this film. Dictated by: Dudley Dodd M.D. on 01/14/2017 at 11:08 . Assessment & Plan #- Septic shock : Acute, present on admission. SIRS criteria including leukocytosis 19.4, 22% bandemia, tachycardia 116, blood pressure 71/47 on admission. Organ dysfunction based on lactic acid 5.8, acute kidney injury with serum creatinine 2.3 on admission. Due to severe C. difficile colitis. High mortality risk. Blood pressure stabilizing, and pressors are being weaned. Procalcitonin declining. White blood cell count peaked at 26.8 on day 2 and is now declining. She continues with copious diarrhea. - Norepinephrine; taper as tolerated - Continue aggressive crystalloid hydration - Sepsis bundles ( See orders). - CCU admit and monitoring . #. Severe C. difficile Colitis: Copious stool output, diffuse abdominal pain but no ileus or surgical indication. - Fidaxomicin Rx - Flagyl - Enteric precautions - FMS recommended to patient but she refuses Metabolic acidosis Lacticemia, anion gap 21 on admission. - Resolved, now with hyperchloremic non-gap acidosis secondary to fluid resuscitation - Switch to bicarbonate based IV fluid Chronic, resolving and/or stable problems: #. Acute renal failure : His admission serum creatinine 2.3; resolved to 0.59. Likely prerenal azotemia due to dehydration, septic shock. Improving with fluid resuscitation - Resolved. #. Possible Urinary tract infection, acute. Patient has no symptoms. Initially treated with Zosyn. Pyelonephritis is ruled out by lack of pyuria on repeat specimen. - Discontinue Zosyn #. Elevated troponin : Likely due to hypotension /septic shock . Patient has no angina - Follow clinically, no workup for ischemic cardiac disease at this time #. Sacral decubitus ulcer, right upper tibial area decubitus ulcer, stage II, present on admission. - Wound care ordered #. Right leg wound, stage III, present on admission. - Wound care ordered #. Acute encephalopathy : Toxic and metabolic - Resolved #. Neuropathy chronic, - Continue gabapentin - Minimize opioid use Venous thromboembolism prophylaxis: Heparin and SCD CODE STATUS is full Disposition: Expect several more days of acute treatment of septic shock due to severe C. difficile colitis. VTE Prophylaxis: Sub-Q Heparin (Unfractionated) VTE Mechanical Devices: Intermittant Pneumatic CD Resuscitation Status: CPR: Attempt Resuscitation Time spent 40 minutes spent in patient assessment care coordination including review of radiology studies and data review with recruiting operations consultant Russell Lynn MD Jan 14, 2017 15:33
--- NOTE | 2017-01-14 17:05 | NUR ---
[facility]
[2017-01-14 18:00] VITALS: BP 92/68; PULSE 102; RESP 17; O2SAT 95
[2017-01-14] MEDS: Ondansetron 2 mg/mL 2 mL Inj IVPUSH PRN (18:39)
[2017-01-14 20:30] VITALS: BP 92/56; PULSE 103; RESP 14; O2SAT 90
[2017-01-14] MEDS ORDERED: KCl 40 mEq/100 mL Premix (K 3 - 3.7 & Creat < 2) IV ONE (21:15)
[2017-01-15 00:30] VITALS: BP 99/62; PULSE 102; RESP 16; O2SAT 97
[2017-01-15] MEDS: Heparin 5,000 Unit/mL Inj SUBQ SCH ×3 (00:47→16:59)
--- NOTE | 2017-01-15 01:01 | NUR ---
Resp/BP/Pain: Pt was sleeping at beginning of shift Spo2 was bouncing between 90-94% on room air. At 2200 Spo2 dropped to 86-88% pt was placed on O2 at 2L/M per nasal cannula with Spo2 94-97%. Levophed was placed on standby at 2200 and BP has been stable with maps 60-68. Pt c/o of left shoulder pain position was changed and was given pain pill at about 0040.
[2017-01-15 02:55] LABS: BASOPHILS % (AUTO) 0.4 % (0-3); EOSINOPHILS % (AUTO) 2.2 % (0-5); MONOCYTES % (AUTO) 18.1 % (4-12); Mean Corpuscular Hemoglobin 28.9 pg (27.0-35.0); Mean Corpuscular Volume 88.9 fL (81-100); NEUTROPHILS % (AUTO) 61.1 % (40-74); Platelet Count 470 bil/L (150-400)
[2017-01-15 03:19] LABS: Magnesium 1.6 mg/dL (1.6-2.6); Phosphorus 2.3 mg/dL (2.5-4.9)
[2017-01-15] MEDS: metroNIDAZOLE Inj 500 MG in IV Premix 1 EACH IV SCH ×3 (04:15→20:13)
[2017-01-15 04:30] VITALS: BP 95/60; PULSE 102; O2SAT 97
[2017-01-15] MEDS ORDERED: Mag Sulf 4 Gm/100 mL IV Premix (Mag < 1.6 & Creat < 2) IV ONE (05:15)
[2017-01-15] MEDS ORDERED: DEXTROSE 5% IV ONE (05:30)
[2017-01-15] MEDS ORDERED: POTASSIUM PHOS IV ONE (05:30)
[2017-01-15] MEDS: oxyCODONE ER 10 mg ER12 Tablet PO SCH ×2 (08:51→20:13)
[2017-01-15] MEDS: Sodium Chloride LOK Flush 10 mL Syringe IVFLUSH PRN ×2 (08:51→19:57)
[2017-01-15 08:52] VITALS: BP 91/53; PULSE 97; RESP 13; O2SAT 95
[2017-01-15] MEDS: Ondansetron 2 mg/mL 2 mL Inj IVPUSH PRN ×2 (09:13→19:57)
--- NOTE | 2017-01-15 11:08 | NUR ---
NUTRITION FOLLOW UP ASSESS: 66 YO F admitted for septic shock and severe C.diff colitis. Per notes, pt stated abdominal pain, nausea, vomiting and diarrhea three days prior to current admission. Plan for abd/pelvis CT. Pt with minimal PO intake X 5 days. PMHx: Arthritis, COPD, CVA, Pneumonia, Lupus, TIA, anemia, osteoporosis, GERD, Tubal ligation, carpal tunnel, left hip repair LABS: Reviewed. Ca 7.3, Phos 2.3 MEDS: Reviewed. GI: BM x 1 (01/15) SKIN: Wound on R lower leg, redness on sacrum. R leg cellulitis CURRENT WT: 66.8 kg, BMI: 21.7 kg/m2, Previous Admit (12/16/16): 77.5 kg, IBW: 65.9 kg DIET: Heart Healthy, PO intake 5% X 1 meal. ESTIMATED NEEDS: COPD, wound Calorie: 8461-8386 kcal/day (30-35 kcal/kg BW) Protein:75-95 g/day (1.2-1.5 g/kg BW) NUTRITION DIAGNOSIS: 1.) Increased nutrient needs related to wound healing and chronic illnesses as evidenced by ongoing treatment for wound on right leg and COPD.---PERSISTS. NUTRITION INTERVENTION: 1.) Continue current diet and supplements as ordered. MONITOR/EVALUATE: PO intake, wt, GI, wound, labs, nutrition status, POC. Follow per high nutrition risk guidelines.
[2017-01-15 12:00] VITALS: BP 96/56; PULSE 94; RESP 12; O2SAT 92
[2017-01-15] MEDS: Nystatin 100,000 Unit/Gm 15 Gm Powder TOPICAL SCH ×2 (13:00→20:14)
--- NOTE | 2017-01-15 14:05 | PCM.PNMED ---
Subjective Date of Service Jan 15, 2017 Subjective 66-year-old woman with history of COPD, psoriasis, history of vascular disease, recent antibiotic treatment for leg wound presents on transfer from [facility] with 3 days of abdominal pain, diarrhea and septic shock. 01/14-Patient continues to feel weak. Her chief complaint today is back and shoulder pains, which are chronic. In questioning she also endorses continued abdominal pain. Diarrhea continues, but the patient feels it is improving. She seems very fatigued with reduced affect. 01/15- weaned norepi at 10p - BP holding - afeb, no cp/sob noted - cont on fidoxamincin/flagyl Exam Vital Signs Vital Sign - Last Date Time Temp Pulse Resp B/P Pulse Ox O2 Delivery O2 Flow Rate FiO2 01/15/17 04:30 37.2 102 95/60 97 Nasal Cannula 2.00 01/15/17 00:30 16 Intake and Output 01/14/17 01/14/17 01/15/17 Cumulative From/Thru 15:00 23:00 07:00 01/10/17 15:14 - 01/15/17 06:01 Intake Total 1252 ml 495 ml 11659 ml Output Total 200 ml 150 ml 2775 ml Balance 1052 ml 345 ml 46719 ml Intake Oral 500 ml 150 ml 3700 ml IV Total 752 ml 345 ml 75865 ml Output Urine Total 150 ml 150 ml 2725 ml Emesis 50 ml 50 ml # Bowel Movements 3 1 21 Exam General: Chronically ill-appearing woman, slightly fatigued but no acute distress HEENT: sclerae anicteric, oral mucosa internally moist Neck: Supple, no JVD Chest: No wheezes rales or rhonchi Cardiac: S1S2, regular, no murmur Abdomen: BS present, diffuse mild tenderness to palpation of upper and lower quadrants, no rigidity, no rebound Extremities: Right lower extremity bandage. Stage II sacral decubiti chronic, not inspected to. Neuro: dysphoric but alert and oriented, cranial nerves symmetric IVs and Medications Medications Reviewed: Medications were reviewed in detail Lab and Diagnostics Result Diagram: 01/15/1724401/15/17244 Microbiology Cultures of blood: No growth so far Cultures of Urine 01/10: Greater than 100,000 colony counts gram-negative guicho probable Escherichia coli Repeat urine specimen 01/12 - no significant pyuria Name: OSMAN WOLFE Age/Sex: 66/F Attend Dr: Rolando Hadley MD Acct: [id number] Unit: [id number] Status: ADM IN Location: [facility] [id number] Re01/10/17 Disch: Specimen: [id number] Collected: 01/10/17 Status: COMP Req#: [id number] Received: 01/10/17 Source: STOOL Sp Desc : Subm Dr: Walter Espinal MD Ordered: C DIFF DNA PCR Comments: Collected by Nurse/Unit? Y/N Y Procedure Result Verified Site Microbiology HOLLY C DIF PCR STOOL Final 01/11/17-1319 CDIF DNA BY PCR POSITIVE X-Rays, CTs and MRIs PROCEDURE: CT ABDOMEN AND PELVIS WITHOUT CONTRAST ([id number]) IMPRESSION: 1. Diffuse colonic wall thickening consistent with colitis. Differential diagnoses include infectious colitis, pseudomembranous colitis, inflammatory disease and ischemic colitis. Recommend clinical correlation. 2. There is soft tissue stranding in the right abdomen primarily around the cecum. The appendix and terminal ileum are normal. 3. Atherosclerosis in the abdominal aorta. The distal aortic lumen is mildly narrowed just above the bifurcation. 4. Small right effusion. 5. Distended gallbladder with possible tiny gallstones. 6. A couple of hyperdense nodules in the inferior pole of the left kidney, probably small hyperdense cysts. Recommend nonurgent renal ultrasound to confirm cystic nature when feasible. Dictated by: Gisella Montana M.D. on 01/10/2017 at 17:41 PROCEDURE: X-RAY CHEST ONE VIEW ([id number]) IMPRESSION: Right-sided central venous catheter as above. Mild increased pulmonary vascularity and chronic interstitial changes. Dictated by: Linda Weeks M.D. on 01/10/2017 at 16:16 PROCEDURE: X-RAY ABDOMEN DECUBITUS, LEFT IMPRESSION: In this patient with abdominal pain and recent CT scan showing colitis and image could not be obtained to rule in or out free air. No distention of bowel loops is seen in this film. Dictated by: Dudley Dodd M.D. on 01/14/2017 at 11:08 . Assessment & Plan #- Septic shock : Acute, present on admission. SIRS criteria including leukocytosis 19.4, 22% bandemia, tachycardia 116, blood pressure 71/47 on admission. Organ dysfunction based on lactic acid 5.8, acute kidney injury with serum creatinine 2.3 on admission. Due to severe C. difficile colitis. High mortality risk. Blood pressure stabilizing, and pressors are being weaned. Procalcitonin declining. White blood cell count peaked at 26.8 on day 2 and is now declining--> 12.6 01/15. She continues with copious diarrhea. - Norepinephrine; taper as tolerated - Continue crystalloid hydration - Sepsis bundles ( See orders). - CCU admit and monitoring . #. Severe C. difficile Colitis: Copious stool output, diffuse abdominal pain but no ileus or surgical indication. - Repeat CT A/P today - Fidaxomicin Rx - Flagyl - Enteric precautions - FMS recommended to patient but she refuses Metabolic acidosis Lacticemia, anion gap 21 on admission. - Resolved, now with resolved subsequent hyperchloremic non-gap acidosis secondary to fluid resuscitation - Switch to bicarbonate based IV fluid, now dc'd 2/26 Chronic, resolving and/or stable problems: #. Acute renal failure : His admission serum creatinine 2.3; resolved to 0.59. Likely prerenal azotemia due to dehydration, septic shock. Improving with fluid resuscitation - Resolved. #. Possible Urinary tract infection, acute. Patient has no symptoms. Initially treated with Zosyn. Pyelonephritis is ruled out by lack of pyuria on repeat specimen. - Discontinue Zosyn #. Elevated troponin : Likely due to hypotension /septic shock . Patient has no angina - Follow clinically, no workup for ischemic cardiac disease at this time #. Sacral decubitus ulcer, right upper tibial area decubitus ulcer, stage II, present on admission. - Wound care ordered #. Right leg wound, stage III, present on admission. - Wound care ordered #. Acute encephalopathy : Toxic and metabolic - Resolved #. Neuropathy chronic, - Continue gabapentin - Minimize opioid use Venous thromboembolism prophylaxis: Heparin and SCD CODE STATUS is full Disposition: Expect several more days of acute treatment of septic shock due to severe C. difficile colitis. Pain Evaluation: Adequate Pain Control VTE Prophylaxis: Sub-Q Heparin (Unfractionated) VTE Mechanical Devices: Intermittant Pneumatic CD Resuscitation Status: Limited Interventions Time spent 40 minutes spent with eval and mgmt Rolando Wilson DO Jan 15, 2017 08:13
--- NOTE | 2017-01-15 15:43 | NUR ---
Wound Care Wound at right lower leg is redressed today after cleaning with saline and gauze. Wound measures 13 cm L x 11 cm W x flush. Wound bed is mostly granular. Redressed with Vaseline gauze, kerlix, abd pad and coban. Will change dressing in 48 hrs.
[2017-01-15 16:00] VITALS: BP 90/55; PULSE 97; RESP 12; O2SAT 93
--- NOTE | 2017-01-15 16:53 | NUR ---
Reports poor appetite, denied nausea but c/o "heartburn"; small emesis this morning. Medicated with Zofran, no further vomiting. Abd remains distended, tender; intermittent incontinence of liquid green, mucous stool. Remains in isolation for C-diff. CT w/ contrast planned for today, awaiting CT dept. Sats 92-95% on RA, denies shortness of breath and appears in no distress. Continued chronic discomfort, receiving Oxycontin and Neurontin. Nystatin ordered/administered to skin folds, edepali "rash" which appears to be yeast-like. Has been refusing to turn/reposition despite teaching. UOP remains poor, 200ml/dark gaudencio via bear cath. No visitors, no inquiries.
[2017-01-15] MEDS: Norepineph 8,000 mCg/250 mL NS 8,000 MCG in IV Premix 1 EACH IV SCH (16:59)
--- NOTE | 2017-01-15 19:10 | PROG NOTE ---
[address] [address] PROGRESS NOTE PATIENT: OSMAN WOLFE : 1950 MR#: [id number] ADMIT: 01/10/2017 JOB ID: [id number] DATE: 01/15/2017 PULMONARY CRITICAL CARE PROGRESS NOTE: The patient is a 66-year-old woman admitted with septic shock and Clostridium difficile colitis. INTERVAL HISTORY: She was finally weaned off of norepinephrine this morning. She has, however, had increased nausea and vomiting and abdominal pain and distention. REVIEW OF SYSTEMS: No fevers, chills, chest pain. See above. PHYSICAL EXAMINATION: Vital signs reviewed. Temperature 37.2, pulse 97, respirations 16, BP 91/53, sats 95% on room air. General: Lying in bed, pale, chronically ill appearing. Appears slightly uncomfortable. Chest clear to auscultation. Abdomen distended more so than when I last saw her and she is very diffusely tender. LABORATORIES: Reviewed. WBC down to 12 from 14. Hemoglobin stable. Chemistry reviewed. Creatinine is down to 0.69. Procalcitonin is down to 2.1. IMAGING: KUB from January 14 shows no bowel loop distention. ASSESSMENT AND RECOMMENDATIONS: 1. Septic shock--improved. 2. Severe clostridium difficile colitis. 3. Acute kidney injury--resolved. 4. Right lower extremity cellulitis status post debridement in November 2016. A 66-year-old chronically ill woman with history of prior stroke and lupus in the past, COPD and some recent smoking history presenting with severe C. difficile colitis. After a hospitalization for cellulitis requiring debridement and antibiotics. She has been on vasopressors for 3-4 days and was finally weaned off today. All parameters appear to be improving--white blood cell count is down, kidney injury has improved. All of this is reassuring but today she has had increased vomiting, abdominal pain and distention. While this could just be an ileus, I think it would be reasonable to rule out any acute intra-abdominal process especially with her Clostridium difficile. We are going to get a CT of the abdomen with contrast. She may need an NG tube for decompression if she does have an ileus. If her abdominal CT does not show anything too concerning I think it is okay to be downgraded from ICU to PCC status. She is on fidaxomicin and p.o. Flagyl for her Clostridium difficile. She is on appropriate DVT prophylaxis Critical care time 35 minutes.
[2017-01-15 20:00] VITALS: BP 106/84; PULSE 98; RESP 20; O2SAT 98
--- NOTE | 2017-01-15 23:10 | NUR ---
P) GI//CT/Pain Pt. initially c/o severe nausea and heartburn, vomited at the beginning of the shift, approx. 100ml of bile colored fluid, also c/o severe abdominal pain 06/28, requested CT be done tomorrow in the day time as she feels too ill to go down tonight, and as she is having frequent episodes of incontinent diarrhea she does not want to go and embarrass herself. States she will go tomorrow when she feels better and requested to go around 1400. I) Medications per 's orders, frequent deepali and skin care, enc. pulmonary hygiene and an FMS system as she had 3 stools in 90 minutes and skin is already reddened and yeasty looking. E) Pt. refused FMS, refuses turning, refused neurontin, is very specific about what she does and does not want. Currently resting quietly with eyes closed.
[2017-01-16] VITALS (9 sets, daily range): BP systolic 87–122; BP diastolic 54–76; PULSE 97–109; RESP 13–23; O2SAT 94–98
[2017-01-16] MEDS: Heparin 5,000 Unit/mL Inj SUBQ SCH ×3 (00:20→16:42)
[2017-01-16] MEDS: Ondansetron 2 mg/mL 2 mL Inj IVPUSH PRN ×3 (02:47→12:01)
[2017-01-16] MEDS: Sodium Chloride LOK Flush 10 mL Syringe IVFLUSH PRN (02:48)
[2017-01-16] MEDS: metroNIDAZOLE Inj 500 MG in IV Premix 1 EACH IV SCH ×3 (04:38→21:30)
--- NOTE | 2017-01-16 06:37 | NUR ---
P) Urine Urine dark gaudencio and cloudy, minimal output of 200ml for a 12h shift, will stress to day shift.
--- NOTE | 2017-01-16 07:59 | PCM.PNMED ---
Subjective Date of Service Jan 16, 2017 Subjective She is still nauseated and having diarrhea but less frequent. She denies fevers chills. No difficulty with chest pain or breathing. No palpitations. She is not confused. She has so generally weak. Exam Vital Signs Vital Sign - Last Date Time Temp Pulse Resp B/P Pulse Ox O2 Delivery O2 Flow Rate FiO2 01/16/17 04:00 37.1 97 13 94/54 96 Room Air 01/15/17 12:00 93 01/15/17 04:30 2.00 Intake and Output 01/15/17 01/15/17 01/16/17 Cumulative From/Thru 15:00 23:00 07:00 01/10/17 15:14 - 01/16/17 06:36 Intake Total 850 ml 785 ml 36728 ml Output Total 200 ml 200 ml 3175 ml Balance 650 ml 585 ml 68267 ml Intake Oral 300 ml 320 ml 4320 ml IV Total 550 ml 465 ml 74384 ml Output Urine Total 200 ml 200 ml 3125 ml Emesis 50 ml # Bowel Movements 3 4 28 Exam Somewhat listless, but alert and oriented. Fluent speech Anicteric sclerae Neck supple. Lungs are clear with normal effort and rate. Heart is regular without murmur gallop or rub Abdomen is soft nontender. Extremities with 2+ edema bilaterally and wrapped Skin is otherwise free of rash or lesions. There is no facial droop. And more strength is 5 out of 5 in arms and legs IVs and Medications Medications Reviewed: Medications were reviewed in detail Lab and Diagnostics Result Diagram: 01/15/1724401/15/17244 Microbiology Cultures of blood: No growth so far Cultures of Urine 01/10: Greater than 100,000 colony counts gram-negative guicho probable Escherichia coli Repeat urine specimen 01/12 - no significant pyuria Name: OSMAN WOLFE Age/Sex: 66/F Attend Dr: Rolando Hadley MD Acct: [id number] Unit: [id number] Status: ADM IN Location: CCU [id number] Re01/10/17 Disch: Specimen: [id number] Collected: 01/10/17 Status: UMER Camargo#: [id number] Received: 01/10/17 Source: STOOL Sp Desc : Subm Dr: Walter Espinal MD Ordered: C DIFF DNA PCR Comments: Collected by Nurse/Unit? Y/N Y Procedure Result Verified Site Microbiology HOLLY C DIF PCR STOOL Final 01/11/17-1320 CDIF DNA BY PCR POSITIVE X-Rays, CTs and MRIs PROCEDURE: CT ABDOMEN AND PELVIS WITHOUT CONTRAST ([id number]) IMPRESSION: 1. Diffuse colonic wall thickening consistent with colitis. Differential diagnoses include infectious colitis, pseudomembranous colitis, inflammatory disease and ischemic colitis. Recommend clinical correlation. 2. There is soft tissue stranding in the right abdomen primarily around the cecum. The appendix and terminal ileum are normal. 3. Atherosclerosis in the abdominal aorta. The distal aortic lumen is mildly narrowed just above the bifurcation. 4. Small right effusion. 5. Distended gallbladder with possible tiny gallstones. 6. A couple of hyperdense nodules in the inferior pole of the left kidney, probably small hyperdense cysts. Recommend nonurgent renal ultrasound to confirm cystic nature when feasible. Dictated by: Gisella Montana M.D. on 01/10/2017 at 17:41 PROCEDURE: X-RAY CHEST ONE VIEW ([id number]) IMPRESSION: Right-sided central venous catheter as above. Mild increased pulmonary vascularity and chronic interstitial changes. Dictated by: Linda Weeks M.D. on 01/10/2017 at 16:16 PROCEDURE: X-RAY ABDOMEN DECUBITUS, LEFT IMPRESSION: In this patient with abdominal pain and recent CT scan showing colitis and image could not be obtained to rule in or out free air. No distention of bowel loops is seen in this film. Dictated by: Dudley Dodd M.D. on 01/14/2017 at 11:08 . Assessment & Plan 1. Septic shock : Acute, present on admission and now resolved. SIRS criteria including leukocytosis 19.4, 22% bandemia, tachycardia 116, blood pressure 71/ 47 on admission. Organ dysfunction based on lactic acid 5.8, acute kidney injury with serum creatinine 2.3 on admission. Due to severe C. difficile colitis. High mortality risk. Blood pressure stabilizing, and pressors are being weaned. Procalcitonin declining. White blood cell count peaked at 26.8 on day 2 and is now declining. Her C. difficile toxin colitis is slowly improving. - Norepinephrine has been weaned off. - Continue crystalloid hydration with LR at 200/h. - Sepsis bundles ( See orders). Lactic acidosis has resolved. - We will transfer out of the CCU to PCU status.. 2. Severe C. difficile Colitis: Copious stool output, diffuse abdominal pain but no ileus or surgical indication. - Fidaxomicin Rx - Flagyl IV - Enteric precautions - FMS recommended to patient but she refuses 3. Metabolic acidosis , lactic acidosis.POA. Resolved. 4. Acute renal failure , POA. This is resolved with fluid resuscitation. 5. Urinary tract infection, acute. Was treated with antibiotics, had Escherichia coli 100,000 CFU's. Antibiotic course finished. 6. Elevated troponin : Likely due to hypotension /septic shock . Patient has no angina - Follow clinically, no workup for ischemic cardiac disease at this time 7. Sacral decubitus ulcer, right upper tibial area decubitus ulcer, stage II, present on admission. - Wound care ordered for this chronic and ongoing problem. 8. Right leg wound, stage III, present on admission. - Wound care ordered for this ongoing problem. 9. Acute metabolic encephalopathy, POA. 10. Neuropathy chronic, - Continue gabapentin - Minimize opioid use Venous thromboembolism prophylaxis: Heparin and SCD CODE STATUS is full Disposition: Expect several more days of acute treatment of septic shock due to severe C. difficile colitis. Pain Evaluation: Adequate Pain Control VTE Prophylaxis: Sub-Q Heparin (Unfractionated) VTE Mechanical Devices: Intermittant Pneumatic CD Resuscitation Status: Limited Interventions Time spent 30 minutes Mazin Paredes MD Jan 16, 2017 07:59
[2017-01-16] MEDS: Nystatin 100,000 Unit/Gm 15 Gm Powder TOPICAL SCH ×2 (08:22→20:30)
[2017-01-16] MEDS: oxyCODONE ER 10 mg ER12 Tablet PO SCH ×2 (08:27→22:00)
--- NOTE | 2017-01-16 11:36 | NUR ---
Social Work Note: Continued Discharge Planning Data& Assessment: Per MD in morning rounds, pt is medically improving and off pressors. SW met with pt at bedside to check in and assess for any unmet needs. Pt confirmed plan to discharge back to [facility] for continued rehab when medically ready. Pt denies any other needs. No other discharge needs identified at this time. SW to continue to follow. Plan: Pt is not medically ready for discharge at this time. Anticipated discharge back to [facility] when medically ready for continued rehab. SW to continue to follow. JAMA Nieto
--- NOTE | 2017-01-16 13:20 | NUR ---
Off unit for ABD CT Addendum: 01/16/17 at 1404 by YONI HUMPHRIES RN Patient returned from CT @ about 1350
--- NOTE | 2017-01-16 13:43 | NUR ---
Evaluation completed. Please go to "Notes" then click on "Assessments and Notes" (bottom left corner of screen). Then select appropriate discipline tab on top of screen.
--- NOTE | 2017-01-16 15:10 | DRSVH ---
PROCEDURE: CT ABDOMEN AND PELVIS WITH CONTRAST ([id number]) INDICATIONS: ILEUS/ABSCESS? TECHNIQUE: After the administration of intravenous contrast, 5 mm thick sections acquired from the diaphragm to the symphysis. 5 mm coronal and sagittal reformats were acquired. For radiation dose reduction, the following was used: automated exposure control, adjustment of mA and/or kV according to patient andrew abbott. COMPARISON: [facility], CT, CT ABD PELVIS WO CON, 01/10/2017, 17:05. FINDINGS: Image quality: Excellent. ABDOMEN: Lung bases: There is a small right and moderate left low-density pleural effusion. The left effusion is new when compared with the study dated 01/10/17. No pneumothorax. Mild compressive atelectasis is p resent in the bilateral lung bases. Solid organs: Liver and spleen are normal in size and enhancement. A large amount of intra-abdominal ascites. This is new when compared with the prior study. Gallbladder is mildly dilated and thin-wal led. Biliary system is non dilated. Pancreas demonstrates some fatty atrophy. No adrenal nodules. T here is mild renal atrophy with cortical scarring at the right renal upper pole. Peritoneum and bowel: There is a small hiatal hernia. The small bowel demonstrates normal caliber and wall thickness. There is severe circumferential mucosal thickening throughout the entire colon with marked pericolonic fat stranding and a large amount of low-density free pelvic fluid. No pneumatosis or pneumoperitoneum. Nodes and vessels: No retroperitoneal or mesenteric adenopathy by size criteria. Aorta and inferior vena cava are normal in size. There are scattered atheromatous calcifications throughout the aorta and iliac arteries bilaterally. Miscellaneous: No ventral hernias. PELVIS: Genitourinary: Bladder is decompressed and a [facility] catheter is present. The uterus and ovaries are g rossly unremarkable. Miscellaneous: No inguinal hernias or adenopathy. Bones: No suspicious bony lesions. Healing posterior right rib fractures are noted. No vertebral bod y compression fractures. Left femoral dynamic hip screw is intact. IMPRESSION: 1. Small right and moderate left pleural effusion which is new when compared to study dated 01/10/17. 2. Large amount of abdominopelvic ascites, new when compared with the study dated 01/10/17. 3. Severe, diffuse colitis markedly increased in severity when compared with the prior study. No find ings to suggest pneumatosis or pneumoperitoneum. Given the history of C. difficile, these findings ar e suspicious for toxic megacolon. These findings were discussed with Dr. Everett at 3:06 PM on 01/16/17. Dictated by: Abigail Mittal M.D. on 01/16/2017 at 14:58 Approved by: Abigail Mittal M.D. on 01/16/2017 at 15:08
[2017-01-16] MEDS ORDERED: Lactated Ringer's 1,000 ML IV ONE (15:30)
[2017-01-16] MEDS: Dextrose 5% Lactated Ringer's 1,000 ML IV SCH ×2 (15:40→23:31)
--- NOTE | 2017-01-16 16:12 | PROG NOTE ---
[address] [address] PROGRESS NOTE PATIENT: OSMAN WOLFE : 1950 MR#: [id number] ADMIT: 01/10/2017 JOB ID: [id number] DATE: 01/16/2017 PULMONARY CRITICAL CARE PROGRESS: The patient is a 66-year-old woman with chronic medical issues, including history of stroke and distant history of lupus, recently hospitalized in November for right lower extremity cellulitis requiring debridement and antibiotics, now readmitted with septic shock due to severe Clostridium difficile colitis and acute kidney injury. INTERVAL HISTORY: She had a prolonged pressor requirement which resolved a couple of days ago. We thought she seemed to be getting better in every way, but in the last couple of days, she has had increased nausea, vomiting, abdominal pain and tenderness, and her diarrhea persists. This is despite being on therapy for C. diff since January 10. Today, she has been vomiting nearly continuously, although not a lot of volume coming up with that. She just came back from her CT which looks quite abnormal with colonic wall thickening. REVIEW OF SYSTEMS: As above. Vomiting, abdominal pain. Denies chest pain, shortness of breath. PHYSICAL EXAMINATION: Vital signs reviewed. Temperature 36.8, pulse 107, respirations 23, BP 103/65, sats 97% on room air. General: Pale, chronically ill-appearing. Vomiting into a bag next to her. Chest is clear. Abdomen is distended, more so than a couple of days ago, and tender. I hear no bowel sounds at all. LABORATORIES: She last had labs checked yesterday, and her white count, at that point, was coming down. Lactate a couple of days ago was down to 0.7 and creatinine had normalized completely as of the last couple of days but she has no labs today, so I ordered them stat. Procalcitonin yesterday morning was down to 2.1 from 32 on day of admission. Cultures as before. Urine culture was positive for E. coli and stool was positive for C. difficile toxin. IMAGING: CT of the abdomen and pelvis with contrast was done today and reviewed. This shows severe diffuse colonic thickening that was significantly worse compared to prior. Radiologist thought the findings seemed consistent with toxic megacolon secondary to C. difficile colitis. ASSESSMENT AND RECOMMENDATIONS: 1. Severe Clostridium difficile colitis. 2. Septic shock--off pressors for the last few days. 3. Acute kidney injury--improved. 4. Right lower extremity cellulitis, status post debridement, November 2016. A 66-year-old, chronically ill woman with prior stroke, distant history of lupus, admitted with right lower extremity cellulitis requiring debridement and antibiotics in November 2016, complicated by severe Clostridium difficile colitis requiring hospitalization, now with septic shock. She was weaned off of vasopressors approximately 48 hours ago. Her white count has improved as has her kidney injury. Despite all of this, her symptoms seemed to worsen over the last 24 hours with increasing nausea, vomiting, abdominal pain, and persistent diarrhea. She had no labs done today so I requested these stat. We ordered a CT of the abdomen yesterday, but for some reason, this was not done until today and the CT findings are concerning for worsening colitis despite all the other parameters improving. I added back D5 LR at 125 cc/hour because of her persistent nausea, vomiting. She is also not taking much p.o. for the last few days since she has been here because of GI symptoms. I also wrote for a lactated Ringer's bolus 1 L stat. CBC, chemistries, LFTs and lactate are pending. I think we should consult surgery given her symptomatic decline, despite improvement in labs. Her urine output has also been dropping off today and she has only made 100 cc all day. I have a call out to Dr. Cortez to discuss this patient. She remains on fidaxomicin and IV Flagyl for her Clostridium difficile. Despite the urine culture with E coli, we stopped antibiotics because it appeared that this was colonization and contamination with dirty sample rather than true UTI because the repeat culture was negative as was a repeat UA done through the [facility]. She is on DVT prophylaxis and I added pantoprazole because she has had severe epigastric pain and heartburn. She is a FULL CODE. She has no family in town. She is estranged from some children but she has a son in [place], whom we are trying to contact through the social media intern. CRITICAL CARE TIME: 60 minutes.
[2017-01-16 16:13] LABS: BASOPHILS % (AUTO) 0.4 % (0-3); EOSINOPHILS % (AUTO) 0.6 % (0-5); MONOCYTES % (AUTO) 11.8 % (4-12); Mean Corpuscular Hemoglobin 29.3 pg (27.0-35.0); Mean Corpuscular Volume 87.4 fL (81-100); NEUTROPHILS % (AUTO) 73.9 % (40-74); Platelet Count 560 bil/L (150-400)
[2017-01-16] MEDS: Pantoprazole 4 mg/mL 10 mL Inj IVPUSH SCH (16:37)
--- NOTE | 2017-01-16 18:16 | NUR ---
N/V/D/ PO intake/ urine output: P: pt unable to take PO intake due to N/V and continues to have large amount of liquid stools. Minimal amounts of urine output throughout shift. I: Zofran 8mg IVP administered X2 this shift. MD notified of inadequate PO intake and urine output. MD ordered IV fluids and Protonix IVP. E: patient continues to have N/V/D. Total emesis (brown ) 800cc this shift. 4 large liquid/green stools and 200cc of dark gaudencio urine.
--- NOTE | 2017-01-16 21:05 | CONS ---
[address] [address] CONSULTATION REPORT PATIENT: OSMAN WOLFE : 1950 MR#: [id number] ADMIT: 01/10/2017 JOB ID: [id number] DATE OF SERVICE: 01/16/2017 CHIEF COMPLAINT/IDENTIFICATION: I have been asked by Dr. Melissa to see this 66-year-old woman regarding abdominal pain and vomiting. HISTORY OF PRESENT ILLNESS: The patient was admitted when she was quite ill on the of this month with a past medical history of cirrhosis, previous CVA, COPD and GERD and was felt to have severe C. difficile colitis associated with antibiotic therapy that she had received for complex lower extremity wound over the previous several months. She was quite ill, hypotensive, required ICU care but gradually improved with a short course of antibiotics for UTI but the primary therapy being aggressive care for her C. diff colitis. Her white count dropped from 26.8 down to 12.6, her creatinine improved from 2.30 back to normal baseline, her procalcitonin started out at 32.85 and has dropped down to 4.99. However, over the past 24-48 hours, she began complaining of abdominal pain and nausea and vomiting. Follow-up CAT scan report suggests that her colitis is markedly increased in severity when compared with her original study. I am asked to consult on her regarding discrepancy between her clinical course and her laboratory studies. PHYSICAL EXAMINATION: Demonstrates her to be in no acute distress but she does appear ill. Her temperature is 37.1, pulse is 97-107, blood pressure is 122/74, though was 87/54 earlier in the day. Room air saturation is between 94 and 98. She does not appear jaundiced. She does appear pale. Her abdominal exam shows a distended abdomen with some tympany, some dullness to percussion but also diffuse mild tenderness to percussion, less so with palpation. Her labs indeed appeared to be normalizing though her white count had been 12.6 yesterday and is now 15.9. Hematocrit is more or less stable at 31.9. Her platelet count continues to rise, however, from March 07 several days ago to 560. Chemistries are normal, and her liver function tests are normal. Her coagulation studies from admission showed an INR of 1.06, none has been repeated. Her albumin is only 1.7 and her procalcitonin is 2.13. Notably, her albumin on admission was 3.1, still low. CT scan: I have reviewed her CT scan and the report. The CT from today is with intravenous contrast compared to her previous CT scan from the that was without contrast. I see where there is some question of increased colonic wall thickening. She has also accumulated a fair amount of intra-abdominal ascites around the liver and down into the pelvis consistent with the diagnosis of cirrhosis and she is carrying. IMPRESSION AND PLAN: I would agree that the patient's symptoms and her physical examination did not correlate with her lab studies that clearly demonstrate that she has gotten significantly better since her admission. I do not believe that she is critically ill. I do believe that her underlying problem is her Clostridium difficile colitis, and I am concerned about the possibility of her having spontaneous bacterial peritonitis. I have discussed this with Dr. Shin wright regarding the possibility that the patient does have new onset of spontaneous bacterial peritonitis in the setting of cirrhosis and C. difficile colitis. We also discussed the recent addition of PPIs to her medications and whether that puts her at increased risk. General Surgery will continue to follow the patient but, at this point, other than possible workup and/or empiric treatment for her spontaneous bacterial peritonitis, I have no other suggestions.
[2017-01-17] VITALS (8 sets, daily range): BP systolic 89–115; BP diastolic 48–69; PULSE 90–102; RESP 18–20; O2SAT 91–99
--- NOTE | 2017-01-17 00:55 | NUR ---
Anxiety/Pain Pt is anxious about moving in bed. Pt reminded that the pain coming from her coccyx is aggravated by sitting on it for long periods of time and can only be relieved by changing positions. Pt obliged to being assisted to move to her left side.
[2017-01-17] MEDS: Heparin 5,000 Unit/mL Inj SUBQ SCH ×3 (02:14→17:12)
[2017-01-17] MEDS: metroNIDAZOLE Inj 500 MG in IV Premix 1 EACH IV SCH ×3 (04:40→21:13)
[2017-01-17] MEDS ORDERED: Albumin 25% 50 GM in IV Premix 1 EACH IV ONE (07:50)
[2017-01-17] MEDS: Dextrose 5% Lactated Ringer's 1,000 ML IV SCH ×2 (07:55→17:13)
[2017-01-17] MEDS: Pantoprazole 4 mg/mL 10 mL Inj IVPUSH SCH ×2 (07:56→17:11)
[2017-01-17] MEDS: Albumin 25% 25 GM in IV Premix 1 EACH IV SCH ×2 (08:30→17:12)
--- NOTE | 2017-01-17 09:15 | PCM.PNMED ---
Subjective Date of Service Jan 17, 2017 Subjective She is still nauseated. She feels her abdomen is getting better. She notes less pain today and less distention. Slightly less diarrhea overnight. She denies any chest pain or shortness of breath. No fevers or chills. No confusion. Exam Vital Signs Vital Sign - Last Date Time Temp Pulse Resp B/P Pulse Ox O2 Delivery O2 Flow Rate FiO2 01/17/17 06:31 Supplement Oxygen 01/17/17 03:47 37.1 102 18 91/57 96 01/15/17 12:00 93 01/15/17 04:30 2.00 Intake and Output 01/16/17 01/16/17 01/17/17 Cumulative From/Thru 15:00 23:00 07:00 01/10/17 15:14 - 01/17/17 06:30 Intake Total 1471 ml 1863 ml 68682 ml Output Total 1000 ml 251 ml 4426 ml Balance 471 ml 1612 ml 17533 ml Intake Oral 50 ml 100 ml 4470 ml IV Total 1421 ml 1763 ml 82179 ml Output Urine Total 200 ml 250 ml 3575 ml Urine/Stool Mix 1 ml 1 ml Emesis 800 ml 850 ml # Bowel Movements 28 Exam Alert oriented 3, no distress. Fluent speech, lethargic. Anicteric sclerae. Neck supple. Lungs are clear with normal rate and effort Heart is regular without murmur gallop or rub Evidence slightly distended and slightly hypertympanic. Less guarding and rebound today. Extremities 1+ edema. Skin is free of rash or lesions. IVs and Medications Medications Reviewed: Medications were reviewed in detail Lab and Diagnostics Result Diagram: 01/16/17 1603 01/16/17 1603 Microbiology Assessment & Plan 1. Septic shock : Acute, present on admission and now resolved. SIRS criteria including leukocytosis 19.4, 22% bandemia, tachycardia 116, blood pressure 71/47 on admission. Organ dysfunction based on lactic acid 5.8, acute kidney injury with serum creatinine 2.3 on admission. Due to severe C. difficile colitis. High mortality risk. Blood pressure stabilizing, and pressors are being weaned. Procalcitonin declining. White blood cell count peaked at 26.8 on day 2 and is now declining. Her C. difficile toxin colitis is slowly improving. - Norepinephrine has been weaned off. - Sepsis bundles ( See orders). Lactic acidosis has resolved. We will continue crystalloid and 125 an hour. 2. Severe C. difficile Colitis: Copious stool output, diffuse abdominal pain but no ileus or surgical indication. CT scan on January 17 indicated toxic megacolon. The patient was seen by Dr. Cortez and the decision is to follow clinically at this point. Blood tests are pending for this morning however she feels improved. Her abdominal exam is also improved. - Fidaxomicin Rx - Flagyl IV - Enteric precautions - FMS recommended to patient but she refuses 3. Metabolic acidosis , lactic acidosis.POA. Resolved. 4. Acute renal failure , POA. This is resolved with fluid resuscitation. 5. Urinary tract infection, acute. Was treated with antibiotics, had Escherichia coli 100,000 CFU's. Antibiotic course finished. 6. Elevated troponin : Likely due to hypotension /septic shock . Patient has no angina - Follow clinically, no workup for ischemic cardiac disease at this time 7. Sacral decubitus ulcer, right upper tibial area decubitus ulcer, stage II, present on admission. - Wound care ordered for this chronic and ongoing problem. 8. Right leg wound, stage III, present on admission. - Wound care ordered for this ongoing problem. 9. Acute metabolic encephalopathy, POA. 10. Neuropathy chronic, - Continue gabapentin - Minimize opioid use Venous thromboembolism prophylaxis: Heparin and SCD CODE STATUS is full Disposition: Expect several more days of acute treatment of septic shock due to severe C. difficile colitis. Pain Evaluation: Adequate Pain Control VTE Prophylaxis: Sub-Q Heparin (Unfractionated) VTE Mechanical Devices: Intermittant Pneumatic CD Resuscitation Status: Limited Interventions Mazin Paredes MD Jan 17, 2017 09:15
[2017-01-17] MEDS: Sodium Chloride LOK Flush 10 mL Syringe IVFLUSH PRN (09:24)
[2017-01-17] MEDS: oxyCODONE ER 10 mg ER12 Tablet PO SCH ×2 (09:24→21:37)
[2017-01-17] MEDS: Nystatin 100,000 Unit/Gm 15 Gm Powder TOPICAL SCH ×2 (09:26→21:15)
[2017-01-17] MEDS: Ondansetron 2 mg/mL 2 mL Inj IVPUSH PRN (09:34)
[2017-01-17 09:47] LABS: Mean Corpuscular Hemoglobin 29.4 pg (27.0-35.0); Mean Corpuscular Volume 88.3 fL (81-100)
--- NOTE | 2017-01-17 11:16 | PROG NOTE ---
[address] [address] PROGRESS NOTE PATIENT: OSMAN WOLFE : 1950 MR#: [id number] ADMIT: 01/10/2017 JOB ID: [id number] DATE: 01/17/2017 PULMONARY PROGRESS NOTE: The patient is a 66-year-old woman with a questionable history of cirrhosis, prior stroke and history of lupus in the past who was admitted with severe Clostridium difficile colitis and septic shock. INTERVAL HISTORY: General surgery consulted yesterday and wondered about the possibility of spontaneous bacterial peritonitis given her possible history of cirrhosis and presence of ascites on the most recent CT. The patient herself appears slightly brighter today. Her nausea and vomiting seems to have improved. Number of stools and diarrhea has also improved. She still has abdominal pain and distention but less so compared to yesterday. REVIEW OF SYSTEMS: As above. No fevers, chills. PHYSICAL EXAMINATION: Vital signs reviewed. Temperature 37.1, pulse 102, respirations 18, BP 97/59, sats 97% on room air. General: Elderly woman lying in bed, chronically ill-appearing. Abdomen: Mildly tender and distended but slightly improved. LABORATORIES: Reviewed. WBC up to 18.8, hemoglobin 9.8, platelets 494. Chemistry pending at this time. Cultures: No new growth. IMAGING: Abdominal CT from yesterday was reviewed and note from yesterday. ASSESSMENT AND RECOMMENDATIONS: 1. Septic shock-resolved. 2. Severe Clostridium difficile colitis. 3. Acute kidney injury-improved. 4. Right lower extremity cellulitis status post debridement November 2016. 5. Questionable history of cirrhosis. 6. New ascites on imaging currently. A 66-year-old woman with chronic medical problems and recent hospitalization in November for right lower extremity cellulitis requiring debridement and antibiotics now admitted with severe C. difficile colitis and septic shock. She had had slow resolution of shock, finally off pressors a few days ago with improvement in white blood cell count, procalcitonin and kidney injuries suggesting she was improving overall. However, over the last few days, she has had increased nausea, vomiting, abdominal pain and discomfort with her urine output slowly drifting down. We repeated the CT of the abdomen yesterday and this showed significant colitis with evidence of toxic megacolon and also new ascites. General Surgery was consulted because appearance on CT imaging and the report seemed to suggest maybe the colitis was getting worse. She was evaluated by Dr. Cortez who recommended working her up for a spontaneous bacterial peritonitis. I am reluctant to start her on antibacterial therapy because we are not yet certain that the C difficile is improving completely. I would like to get an ultrasound guided paracentesis. We did a bedside ultrasound by ourselves today and I am not comfortable with the location of the fluid enough to put a needle in it. However, ultrasound did seem to see a pocket so we have requested a paracentesis and we will send that fluid for cell count and cultures and start ceftriaxone if white blood cell count is consistent with SBP. She does seem somewhat better today so I think that is optimistic. We will continue fidaxomicin and IV Flagyl for now. I will continue to follow.
[2017-01-17 11:55] LABS: INR 1.14 ratio
[2017-01-17 13:15] LABS: BFWBC 175 /mm3
[2017-01-17 13:16] LABS: MONOCYTES,BODY FLUID 30 %; OTHER CELLS,BODY FLUID 0
[2017-01-17] MEDS ORDERED: Lactated Ringer's 500 ML IV ONE (14:20)
[2017-01-17] MEDS ORDERED: Lactated Ringer's 1,000 ML IV ONE (14:38)
--- NOTE | 2017-01-17 15:05 | NUR ---
NUTRITION FOLLOW UP ASSESS: 66 YO F admitted for septic shock and severe C. diff colitis. CT showed evidence of toxic megacolon. Pt experiencing new ascites and continues to have abdominal pain. Per notes, nausea and vomiting are slightly improved, and pt is experiencing less frequent stools and diarrhea. Pt states improved appetite and is ready to try eating. Ordered yogurt at lunch, and was willing to try pineapple Gelatein to help increase protein intake. Pt tried Ensure Clear, but did not like the taste. Pt also has pressure ulcers that were present on admission. Pt being following by Wound Care. General surgery consulted; believes pt may have new onset of bacterial peritonitis. Plan to conduct paracentesis and send fluid to lab for cultures. PMHx: Arthritis, COPD, CVA, Pneumonia, Lupus, TIA, anemia, osteoporosis, GERD, Tubal ligation, carpal tunnel, left hip repair LABS: Reviewed. Cl 113, Gluc 158, A1c 5.8, Ca 7.6, Alb 2.5 MEDS: Reviewed. Zofran GI: BM x 4 (01/16) Diarrhea noted. SKIN: Stage II PUs on sacrum and buttocks; PU on right upper calf per WC CURRENT WT: 66.8 kg (wt gain likely fluid related), BMI: 21.7 kg/m2, Admit Wt: 62.5 kg Previous Admit (12/16/16): 77.5 kg, IBW: 65.9 kg DIET: Heart Healthy, PO intake Refused-25% ESTIMATED NEEDS: COPD, wound Calorie: 0944-1821 kcal/day (30-40 kcal/kg BW) Protein: 80-120 g/day (1.2-1.8 g/kg BW) NUTRITION DIAGNOSIS: 1.) Increased nutrient needs related to wound healing and chronic illnesses as evidenced by ongoing treatment for wound on right leg and COPD.---PERSISTS. NUTRITION INTERVENTION: 1.) Add pineapple Gelatein Plus TID per pt request to help ensure adequate protein and calorie intake. MONITOR/EVALUATE: PO intake, wt, GI, wounds, labs, nutrition status, POC. Follow per high nutrition risk guidelines. Addendum: 01/17/17 at [address] Student documentation reviewed and I agree with the above assessment with the following addition: Interventions: 1.) Add pineapple Gelatein Plus TID per pt request to help ensure adequate protein and calorie intake. 2.) Will discontinue Ensure d/t pt preference 3.) Consider nutrition support if PO intake does not improve over the next couple days Alonso Hewitt, MS, RDN, CD
[2017-01-17] MEDS ORDERED: Albumin 25% 50 ML IV PRN (15:25)
--- NOTE | 2017-01-17 15:57 | DRSVH ---
PROCEDURE: US GUIDED PARACENTESIS, PRIMARY ([id number]) INDICATIONS: ascites TECHNIQUE: The indications, alternatives, benefits, risks, and complications of the procedure were explained to the patient. Written informed consent was obtained and placed in the chart. The abdomen and pelvis were examined sonographically, and an appropriate site was chosen for paracentesis. The skin was pre pared and draped in the usual sterile fashion, and 1% lidocaine was infiltrated from the skin down th rough the peritoneal surface. A 19-gauge catheter-covered needle was then introduced into the perito bruce space, the catheter was advanced and the needle was withdrawn, and thereafter peritoneal fluid w as withdrawn. The catheter was then removed and a dressing was applied. The fluid was discarded if the clinician did not order diagnostic testing of the fluid. Alignment is stable and fracture lucenc y still visible. COMPARISON: None. FINDINGS: Access site: Midline pelvis Needle: One-Step centesis catheter with introducer needle. Fluid volume and description: 2.1 L of clear peritoneal fluid. Fluid sent for diagnostic testing: Fluid sent for cytology, multiple chemistry panels and therapeuti c drainage. Medications: 1% lidocaine for local anaesthesia. Complications: None. IMPRESSION: Successful ultrasound-guided paracentesis. Dictated by: Luis E NEWELL Interpreted: Virginia Berkowitz MD on 01/17/2017 at 15:56 Transcribed by: MARSHA on 01/17/2017 at 15:56 Approved by: Virginia Berkowitz MD, PhD on 01/17/2017 at 17:15
--- NOTE | 2017-01-17 19:17 | NUR ---
Note Patient stated having nausea this morning- medicated with Zofran 8mg IV nausea subsided. Patient was complaining of abdominal: "belle pain" 5-06/28 -she was medicated with oxycodone 5mg PO x1 in addition to her schedule pain medications- patient stated good improvement of abdominal pain. Paracentesis procedure before noon today- patient had 2000ml of clear serum color fluid that collected in the suction canister. 10min after draining stopped paracentesis catheter was removed intact. There was no bleeding or drainage noted from puncture side. Abdomen was soft to the touch and remained soft to the touch during the shift. Patient stated having mild abdominal tenderness on palpation but significantly less than before. Borderline BP prior and post procedure with MAP 55-60- MD aware- LR 500ml bolus was given. After LR bolus was completed BP was 115.66 with MAP of 71. UP with PT to a chair- BP at sitting 96/75 prior to standing with HR 97 and BP at standing 88/66 with HR 105. Patient denied felling dizziness- continue assessment.
[2017-01-18] VITALS (9 sets, daily range): BP systolic 87–126; BP diastolic 50–75; PULSE 87–126; RESP 16–23; O2SAT 91–97
[2017-01-18] MEDS: Albumin 25% 25 GM in IV Premix 1 EACH IV SCH ×2 (00:53→10:52)
[2017-01-18] MEDS: Dextrose 5% Lactated Ringer's 1,000 ML IV SCH ×3 (00:53→14:26)
[2017-01-18] MEDS: Heparin 5,000 Unit/mL Inj SUBQ SCH ×3 (00:54→16:46)
[2017-01-18] MEDS: metroNIDAZOLE Inj 500 MG in IV Premix 1 EACH IV SCH ×3 (03:27→21:09)
[2017-01-18] MEDS ORDERED: Lactated Ringer's 500 ML IV ONE ×3 (04:35→12:20)
[2017-01-18] MEDS ORDERED: Lactated Ringer's 1,000 ML IV ONE ×2 (05:46→06:10)
--- NOTE | 2017-01-18 06:16 | NUR ---
BP/OUTPUT Pt continues to have poor output. 250ml out in her bear catheter. Pt has D5LR @ 125 running. Pt's BP continues to be low. 93/46.. 80/41.. 84/39.. Pt was given 500ml LR bolus which helped temporarily bring BP up for 20 minutes or so. BP trended down again and another LR bolus was ordered 1000ml over 2hrs. MD aware of low BP's. Pt had 2 loose stools on night time babysitter. Pt's abdomen is rigid and tender.
[2017-01-18] MEDS: oxyCODONE ER 10 mg ER12 Tablet PO SCH ×2 (09:19→21:02)
[2017-01-18] MEDS: Pantoprazole 4 mg/mL 10 mL Inj IVPUSH SCH ×2 (10:43→16:48)
[2017-01-18] MEDS: Nystatin 100,000 Unit/Gm 15 Gm Powder TOPICAL SCH ×2 (10:53→21:02)
[2017-01-18] MEDS: cefTRIAXone Inj 2,000 MG in Dextrose 5% Minibag Plus 50 ML IV SCH (10:55)
--- NOTE | 2017-01-18 11:09 | NUR ---
Wound Care Wound at right lower leg is redressed today after cleaning with saline and gauze. Wound measures 13 cm L x 11 cm W x flush. Wound bed is mostly granular. Redressed with Xeroform, kerlix, abd pad and coban. Wound is stable at right leg, nursing can change dressing in 48 hours. Calmoseptine applied to stage 2 PU at right buttock and left buttock. Encouraged patient to reposition herself in bed,
[2017-01-18] MEDS ORDERED: Albumin 25% 25 GM in IV Premix 1 EACH IV ONE (11:50)
[2017-01-18 12:20] LABS: BASOPHILS % (AUTO) 0.2 % (0-3); EOSINOPHILS % (AUTO) 2.8 % (0-5); MONOCYTES % (AUTO) 8.4 % (4-12); Mean Corpuscular Hemoglobin 29.3 pg (27.0-35.0); Mean Corpuscular Volume 88.5 fL (81-100); NEUTROPHILS % (AUTO) 78.2 % (40-74); Platelet Count 380 bil/L (150-400)
[2017-01-18] MEDS: Albumin 25% 100 ML IV SCH ×2 (12:36→20:56)
[2017-01-18] MEDS ORDERED: Potassium Chloride Inj 20 MEQ in Dextrose 5% 250 ML IV ONE ×3 (13:25→21:00)
[2017-01-18] MEDS ORDERED: Calcium GLUCO 10% (Gm) Inj 2 GM in Dextrose 5% 100 ML IV ONE (13:25)
--- NOTE | 2017-01-18 15:56 | PROG NOTE ---
[address] [address] PROGRESS NOTE PATIENT: OSMAN WOLFE : 1950 MR#: [id number] ADMIT: 01/10/2017 JOB ID: [id number] DATE: 01/18/2017 SUBJECTIVE: The patient had 2 L of ascites drawn off for yesterday with white count borderline for spontaneous bacterial peritonitis. Overnight, she became hypotensive, partially responding to fluids. She has received her first dose of ceftriaxone this morning. She remains afebrile at 36.7, pulse is 89, blood pressure is 94/58, room air saturation is 91%. She is comfortable, tells me she feels better than she did two days ago. On examination, her abdomen remains distended, tender to percussion throughout but without involuntary guarding. LABORATORIES: Show that her white count which beena to 18 yesterday has dropped down to 17.3. Her platelet count is down to 380, first time normal in some time. Her lactic acid is 1.6. IMPRESSION AND PLAN: The question is whether her C. difficile colitis is continuing to worsen versus this being additional complication of her C. difficile colitis and spontaneous bacterial peritonitis. I have discussed her case with Dr. Melissa and agree that her hypotension and abdominal tenderness is worrisome. However, her other lab parameters remain good, and at this point, I would recommend following her closely to see whether she shows any significant improvement in her overall picture with ceftriaxone in addition to her treatment for C. difficile colitis.
--- NOTE | 2017-01-18 16:25 | PCM.PNMED ---
Subjective Date of Service Jan 18, 2017 Subjective She is having a small increase in appetite. She notes her abdomen feels better although she continues to have copious in fact may be increased diarrhea. No blood per rectum. No fevers or chills. No cough or shortness of breath. Exam Vital Signs Vital Sign - Last Date Time Temp Pulse Resp B/P Pulse Ox O2 Delivery O2 Flow Rate FiO2 01/18/17 15:50 36.8 18 108/60 97 Room Air 01/18/17 11:40 89 01/15/17 12:00 93 01/15/17 04:30 2.00 Intake and Output 01/17/17 01/17/17 01/18/17 Cumulative From/Thru 15:00 23:00 07:00 01/10/17 15:14 - 01/18/17 06:31 Intake Total 2155 ml 2300 ml 61367 ml Output Total 300 ml 250 ml 4976 ml Balance 1855 ml 2050 ml 24987 ml Intake Oral 350 ml 100 ml 4920 ml IV Total 1805 ml 2200 ml 28446 ml Output Urine Total 300 ml 250 ml 4125 ml Urine/Stool Mix 1 ml Emesis 850 ml # Bowel Movements 2 2 32 Exam A little more energetic. She is alert and oriented 3, fluent speech. Anicteric sclerae Neck supple. Normal effort and rate. Heart is regular without murmur. Abdomen is slightly distended hypertympanic bowel tones. No guarding or rebound minimal tenderness. Extremities with 1+ edema. Pedal and radial pulses. IVs and Medications Medications Reviewed: Medications were reviewed in detail Lab and Diagnostics Result Diagram: 01/18/17 1200 01/18/17 1200 Microbiology Assessment & Plan 1. Septic shock : Acute, present on admission and now resolved. SIRS criteria including leukocytosis 19.4, 22% bandemia, tachycardia 116, blood pressure 71/47 on admission. Organ dysfunction based on lactic acid 5.8, acute kidney injury with serum creatinine 2.3 on admission. Due to severe C. difficile colitis. High mortality risk. Blood pressure stabilizing, and pressors are being weaned. Procalcitonin declining. White blood cell count peaked at 26.8 on day 2 and is now declining. Her C. difficile toxin colitis is slowly improving. - Norepinephrine has been weaned off. - Sepsis bundles ( See orders). Lactic acidosis has resolved. We will continue crystalloid and 125 an hour. She continues to have relative hypotension requiring intermittent fluid boluses but no pressors. We will continue to support her with fluid resuscitation. 2. Severe C. difficile Colitis: Copious stool output, diffuse abdominal pain but no ileus or surgical indication. CT scan on January 17 indicated toxic megacolon. The patient was seen by Dr. Cortez and the decision is to follow clinically at this point. Blood tests are pending for this morning however she feels improved. Her abdominal exam is also improved. - Fidaxomicin Rx - Flagyl IV - Enteric precautions - FMS recommended to patient but she refuses Her abdomen appears to be clinically improved however her stooling continues. Will not change her medical therapy at this point. Her white count continues to oscillate. No fevers or chills. Clinically I believe she is improving. 3. Metabolic acidosis , lactic acidosis.POA. Resolved. 4. Acute renal failure , POA. This is resolved with fluid resuscitation. We will continue to follow her renal indices. 5. Urinary tract infection, acute. Was treated with antibiotics, had Escherichia coli 100,000 CFU's. Antibiotic course finished. 6. Elevated troponin : Likely due to hypotension /septic shock . Patient has no angina - Follow clinically, no workup for ischemic cardiac disease at this time 7. Sacral decubitus ulcer, right upper tibial area decubitus ulcer, stage II, present on admission. - Wound care ordered for this chronic and ongoing problem. 8. Right leg wound, stage III, present on admission. - Wound care ordered for this ongoing problem. 9. Acute metabolic encephalopathy, POA. 10. Neuropathy chronic, - Continue gabapentin - Minimize opioid use 11. Hypokalemia. We will replete this and follow closely, will also check her magnesium tomorrow morning. 12. Hypocalcemia. We will replete this and follow closely. 13. Possible SBP. She did have a diagnostic paracentesis revealing no organisms but a leukocytosis with salt car counts of about 170. She was certain ceftriaxone for possible SBP we will continue to follow closely. Venous thromboembolism prophylaxis: Heparin and SCD CODE STATUS is full Disposition: Expect several more days of acute treatment of septic shock due to severe C. difficile colitis. Pain Evaluation: Adequate Pain Control VTE Prophylaxis: Sub-Q Heparin (Unfractionated) VTE Mechanical Devices: Intermittant Pneumatic CD Resuscitation Status: Limited Interventions Time spent 35 minutes Mazin Paredes MD Jan 18, 2017 16:24
--- NOTE | 2017-01-18 16:28 | PROG NOTE ---
[address] [address] PROGRESS NOTE PATIENT: OSMAN WOLFE : 1950 MR#: [id number] ADMIT: 01/10/2017 JOB ID: [id number] DATE: 01/18/2017 PULMONARY PROGRESS NOTE: The patient is a 66-year-old woman with chronic medical illnesses, admitted with severe C. difficile colitis and septic shock. INTERVAL HISTORY: She was moved out of ICU overnight. Overnight notes indicate that she had a drop in blood pressure to 80 systolic and also a drop in urine output. Overnight she improved a little bit with IV fluids. Symptom-eaton, she denies any nausea, vomiting. She says the diarrhea has gotten worse overnight after improving the last couple of days. Abdominal pain is mild but improved compared to prior. REVIEW OF SYSTEMS: As above. No fevers, chills. PHYSICAL EXAMINATION: Vital signs reviewed. Temperature 36.8, pulse 89, respirations 18, BP 108/60, sats 97% on room air. General: Lying in bed. Appears more alert compared to previously. Chest: Clear. Abdomen: Mildly tender and distention appears increased compared to prior. LABORATORIES: Reviewed. WBC 17.3 compared to 18.8, yesterday and as low as 12.6 previously. Hemoglobin 7.9 on the morning labs; this was down significantly, so we should we should recheck it. Platelets 380. Chemistry reviewed and within normal limits except for hypokalemia with potassium 3.0. Calcium 6.8 and albumin 2.5. She had a paracenteses yesterday with 2 L removed. WBC 175, 40% PMNs. Cultures: No growth. ASSESSMENT: 1. Severe Clostridium difficile colitis. 2. Acute kidney injury-resolved. 3. Septic shock-resolved. RECOMMENDATIONS: A 66-year-old woman admitted on January 10 with severe C. difficile colitis with shock requiring vasopressors and acute kidney injury, all of which has improved now. She continues to have some abdominal symptoms and now an increasing white blood cell count that is concerning to me. Her paracentesis yesterday showed a total of 175 white cells with only about 40% PMNs. This does not really meet criteria for spontaneous bacterial peritonitis; however, she has been on some antibiotics in the last week that could affect this. Cultures negative so far. I did start ceftriaxone for the possibility of SBP. I spoke again with Dr. Cortez, who is not sure that the patient needs a surgical intervention at this point for worsening C. difficile colitis. Many parameters are improving in her case, with only some that are concerning. At this point we decided to continue to watch her since renal function continues to improve and white count has not worsened any further. I do think we should recheck her hemoglobin, however, to ensure this is not dropping any further. Continue fidaxomicin and IV Flagyl for her C. diff. Repeat IV fluid bolus and albumin to see if the low blood pressure was secondary to paracentesis yesterday. I will continue to follow tomorrow.u
--- NOTE | 2017-01-18 17:47 | NUR ---
Social Work: Readiness for Discharge D: Pt discussed in am rounds. Pt is not medically stable for discharge but is improving. Anticipate pt to require 1-2 more days of hospitalization before d/c back to [facility]. Pt was able to work with PT on 01/17 and only able to ambulate 2-3 steps from bed to chair. Pt is also being follow by wound care for sacral and leg wounds which were present on admission. Based on pt's PT and RN care at this time, pt continues to be appropriate for skilled rehab and nursing with an anticipate return to [facility]. PPW in on chart. AUTOMOTIVE PRODUCT SPECIALIST left message for [facility] to notify that pt is anticipate to discharge in 1-2 days pending clinical status. Requested return phone call. A: Pt who will require skilled RN and PT at time of d/c P: ANticipate pt to discharge back to [facility] when medically stable; AUTOMOTIVE PRODUCT SPECIALIST to continue to follow. JAMA Koehler
[2017-01-18] MEDS: Ondansetron 2 mg/mL 2 mL Inj IVPUSH PRN (19:27)
[2017-01-19] VITALS (8 sets, daily range): BP systolic 95–113; BP diastolic 56–62; PULSE 97–103; RESP 16–22; O2SAT 88–93
[2017-01-19] MEDS: Heparin 5,000 Unit/mL Inj SUBQ SCH ×3 (00:17→17:00)
--- NOTE | 2017-01-19 00:19 | NUR ---
oxygen pts SpO2 88-91% on RA while sleeping, tried placing oxygen on pt and she refused, explained the need and benefits of it and pt still refusing, she stated "it makes it so I cant sleep", suggested the oxy mask instead so it wouldn't bother her pt still refused.
[2017-01-19] MEDS: Dextrose 5% Lactated Ringer's 1,000 ML IV SCH ×3 (01:10→15:07)
[2017-01-19] MEDS: metroNIDAZOLE Inj 500 MG in IV Premix 1 EACH IV SCH ×3 (04:53→20:24)
[2017-01-19] MEDS: Albumin 25% 100 ML IV SCH ×3 (04:53→20:26)
[2017-01-19 05:06] LABS: Mean Corpuscular Hemoglobin 28.9 pg (27.0-35.0); Mean Corpuscular Volume 88.7 fL (81-100)
[2017-01-19 05:35] LABS: Magnesium 1.3 mg/dL (1.6-2.6)
--- NOTE | 2017-01-19 06:22 | NUR ---
AM labs pts calcium back at 6.9 corrected calcium is 8.2 and potassium 3.0 called MD, no new orders received, passed on to day team to manage
[2017-01-19] MEDS: Pantoprazole 4 mg/mL 10 mL Inj IVPUSH SCH ×2 (08:58→17:00)
[2017-01-19] MEDS: Nystatin 100,000 Unit/Gm 15 Gm Powder TOPICAL SCH ×2 (08:58→20:26)
[2017-01-19] MEDS: oxyCODONE ER 10 mg ER12 Tablet PO SCH ×2 (08:59→20:25)
[2017-01-19] MEDS ORDERED: 0.9% Sodium Chloride 250 ML ONE (10:27)
[2017-01-19] MEDS: cefTRIAXone Inj 2,000 MG in Dextrose 5% Minibag Plus 50 ML IV SCH (10:42)
--- NOTE | 2017-01-19 11:07 | DRSVH ---
PROCEDURE: X-RAY CHEST ONE VIEW, PORTABLE ([id number]) INDICATIONS: dyspnea TECHNIQUE: One view of the chest was acquired. COMPARISON: [facility], CR, XR CHEST 1VW, 01/10/2017, 15:57. FINDINGS: Surgical changes and devices: Stable position right IJ CVL. Lungs and pleura: Right upper lobe and bibasilar airspace opacities present increased from prior exam ination. Bibasilar pleural effusions redemonstrated. No pneumothorax. Mediastinum: Mediastinal contours appear normal. Heart size is normal. Bones and chest wall: No suspicious bony lesions. Overlying soft tissues appear unremarkable. IMPRESSION: Findings suspicious for bilateral aspiration versus pneumonia. Dictated by: Luis E Coello RRA Interpreted: Abigail Mittal MD on 01/19/2017 at 11:06 Transcribed by: NIRMALA on 01/19/2017 at 11:06 Approved by: Abigail Mittal M.D. on 01/19/2017 at 13:49
--- NOTE | 2017-01-19 11:52 | PCM.PNSURG ---
Subjective Date of Service: Jan 19, 2017 Visit Information: Reason for Visit Sepsis Surgery/Surgery Date Post-Op Day # Date of Admission: Jan 10, 2017 at 20:31 Hospital Day #10 Subjective: Not currently experiencing abdominal pain. States abdominal pain provoked by movement. Eating a few solids with no nausea or vomiting. Continues to have diarrheal bowel movements. Postop General: No Complaints Gastrointestinal: Tolerating Oral Feedings, No N/V, Diarrhea Pain Management: PO Objective Vital Sign- Last 8 Hours Date Time Temp Pulse Resp B/P Pulse Ox O2 Delivery O2 Flow Rate FiO2 01/19/17 08:42 36.5 98 18 100/62 90 Room Air 01/19/17 08:00 99 01/19/17 04:00 Supplement Oxygen 01/19/17 04:00 37.0 100 22 98/57 89 Room Air Intake and Output- Last 8 Hour 01/19/17 Cumulative From/Thru 07:00 01/10/17 15:14 - 01/19/17 06:18 Intake Total 2198 ml 23490 ml Output Total 300 ml 5676 ml Balance 1898 ml 93535 ml Intake Oral 220 ml 5540 ml IV Total 1978 ml 86449 ml Output Urine Total 300 ml 4825 ml Urine/Stool Mix 1 ml Emesis 850 ml # Bowel Movements 3 35 General: Alert, Cooperative, No Acute Distress Lungs: Clear to Auscultation (in the anterolateral buckner) Heart: Regular Rate/Rhythm Abdomen: Soft, Distended (with fluid wave), Other (diffusely tender to light palpation) Extremities: Thigh&Calf Soft/Nontender Neuro: Normal Speech Result Diagram: 01/19/17 0430 01/19/17 0430 Assessment & Plan Impression Primary diagnosis: 1. C. difficile colitis 2. Abdominal pain. Suspected bacterial peritonitis, nonsurgical abdomen at this time it is doubtful that the patient has peritonitis. Other diagnoses: 1. Arthritis, 2. h/o pneumonia, 3. Cerebrovascular disease with history of CVA 1989, 4. COPD, 5. Lupus, 6. Cirrhosis, 7. Anemia, 8. TIA (1989), 9. Osteoporosis, 10. Uropathy, 11. h/o rectovaginal fistula, 12. Gastroesophogeal 13. Daily cigarette smoker Problems: Plan Surgery will continue to follow this patient with serial abdominal exams. Pain Management: Oral analgesic VTE Prophylaxis: Sub-Q Heparin (Unfractionated) Resuscitation Status: Limited Interventions Srinivasan Jain PA-C Jan 19, 2017 11:52
--- NOTE | 2017-01-19 13:50 | PATH ---
SURGICAL PATHOLOGY Attending Physician:Jeannine Melissa MD CASE STATUS: Signed Out PATIENT NAME: OSMAN WOLFE PID: [id number] : 1950 DATE COLLECTED:01/17/2017 00:00 SPECIMEN: Peritoneal fluid Thin Prep CLINICAL HISTORY: Peritoneal Fluid No ICD-10 code given FINAL DIAGNOSIS: PERITONEAL FLUID (ONE CYTOSPIN, ONE THINPREP SLIDE, AND ONE CELL BLOCK): NEGATIVE FOR MALIGNANT CELLS. MESOTHELIAL CELLS AND LYMPHOCYTES PRESENT. ICD10 CODE R18.8 GROSS DESCRIPTION: Received fresh on 01/18/2017 is approximately 35 cc of clear yellow fluid. Prepared are one cell block, one cytospin, and one ThinPrep slide. vo/hk ICD-9 CODES: CPT CODES: 1: 00384, 21006, 00273 Electronically Signed Out Deangelo Nazario MD [facility]ology [facility] [address], [place] [address] Technical component performed at [facility], [address] [place] [address] Ave[address], [place], [address]
--- NOTE | 2017-01-19 15:29 | NUR ---
NUTRITION FOLLOW UP ASSESS: 66 YO F admitted for septic shock and severe C. diff colitis. CT showed evidence of toxic megacolon. Pt underwent paracentesis yesterday. She reports a slight improvement in appetite. Wound care following for her multiple wounds. Surgery recommending conservative management of her C. Diff. Pt w/ minimal PO intake throughout admission but gradually improving. Pt states she does not like Ensure or jello that comes in plastic cups. PMHx: Arthritis, COPD, CVA, Pneumonia, Lupus, TIA, anemia, osteoporosis, GERD, Tubal ligation, carpal tunnel, left hip repair LABS: Reviewed. K 3.0, BUN 5, Cr 0.51, Glu 121, Mg 1.3, Albumin 2.6 MEDS: Reviewed. Zofran GI: BM x 3 (01/19) SKIN: Stage II PUs on sacrum and buttocks; PU on right upper calf per WC CURRENT WT: 66.8 kg (wt gain likely fluid related), BMI: 21.7 kg/m2, Admit Wt: 62.5 kg Previous Admit (12/16/16): 77.5 kg, IBW: 65.9 kg DIET: Heart Healthy, PO intake Refused-25% ESTIMATED NEEDS: COPD, wound Calorie: 0938-4987 kcal/day (30-40 kcal/kg BW) Protein: 80-120 g/day (1.2-1.8 g/kg BW) NUTRITION DIAGNOSIS: 1.) Increased nutrient needs related to wound healing and chronic illnesses as evidenced by ongoing treatment for wound on right leg and COPD.---PERSISTS. 2.) Inadequate oral intake related to GI upset as evidenced by C. Diff positive and minimal PO intake. NUTRITION INTERVENTION: 1.) Discussed food items on our menu that would be high in calorie/protein for the pt to try. 2.) Will add milk TID per pts request. MONITOR/EVALUATE: PO intake, wt, GI, wounds, labs, nutrition status, POC. Follow per high nutrition risk guidelines.
--- NOTE | 2017-01-19 15:53 | PCM.PNMED ---
Subjective Date of Service Jan 19, 2017 Subjective She feels somewhat better today. Certainly improved appetite. No nausea. She has less diarrhea. No blood per rectum. Exam Vital Signs Vital Sign - Last Date Time Temp Pulse Resp B/P Pulse Ox O2 Delivery O2 Flow Rate FiO2 01/19/17 11:57 97 18 113/60 89 Room Air 01/19/17 08:42 36.5 01/15/17 12:00 93 01/15/17 04:30 2.00 Intake and Output 01/18/17 01/18/17 01/19/17 Cumulative From/Thru 15:00 23:00 07:00 01/10/17 15:14 - 01/19/17 06:18 Intake Total 2972 ml 2198 ml 11240 ml Output Total 400 ml 300 ml 5676 ml Balance 2572 ml 1898 ml 01902 ml Intake Oral 400 ml 220 ml 5540 ml IV Total 2572 ml 1978 ml 52104 ml Output Urine Total 400 ml 300 ml 4825 ml Urine/Stool Mix 1 ml Emesis 850 ml # Bowel Movements 3 35 Exam Alert oriented 3, no distress. Fluent speech Lungs are clear with normal effort and rate. Heart is regular without murmur gallop or rub. Abdomen soft nontender Extremities are free of edema. Pedal pulses. IVs and Medications Medications Reviewed: Medications were reviewed in detail Lab and Diagnostics Result Diagram: 01/19/1742901/19/17429 Microbiology Assessment & Plan 1. Septic shock : Present on admission. Resolved. SIRS criteria including leukocytosis 19.4, 22% bandemia, tachycardia 116, blood pressure 71/47 on admission. Organ dysfunction based on lactic acid 5.8, acute kidney injury with serum creatinine 2.3 on admission. Due to severe C. difficile colitis. High mortality risk. Blood pressure stabilizing, and pressors are being weaned. Procalcitonin declining. White blood cell count peaked at 26.8 on day 2 and is now declining. Her C. difficile toxin colitis is slowly improving. - Norepinephrine has been weaned off. - Sepsis bundles ( See orders). Lactic acidosis has resolved. We will continue crystalloid and 125 an hour. She continues to have relative hypotension requiring intermittent fluid boluses but no pressors. We will continue to support her with fluid resuscitation. 2. Severe C. difficile Colitis: Slowly improving. (Primary diagnosis today) CT scan on January 17 indicated toxic megacolon. The patient was seen by Dr. Cortez and the decision is to follow clinically at this point. Blood tests are pending for this morning however she feels improved. Her abdominal exam is also improved. - Fidaxomicin Rx - Flagyl IV - Enteric precautions - FMS recommended to patient but she refuses Her abdomen appears to be clinically improved however her stooling continues. Will not change her medical therapy at this point. Her white count continues to oscillate. No fevers or chills. Clinically I believe she is improving. 3. Metabolic acidosis , lactic acidosis.POA. Resolved. 4. Acute renal failure , POA. Resolved. 5. Urinary tract infection, acute. Was treated with antibiotics, had Escherichia coli 100,000 CFU's. Antibiotic course finished. Resolved. 6. Elevated troponin : Likely due to hypotension /septic shock . Patient has no angina - Follow clinically, no workup for ischemic cardiac disease at this time 7. Sacral decubitus ulcer, right upper tibial area decubitus ulcer, stage II, present on admission.(Secondary diagnosis) - Wound care ordered for this chronic and ongoing problem. 8. Right leg wound, stage III, present on admission. - Wound care ordered for this ongoing problem. 9. Acute metabolic encephalopathy, POA. Resolved 10. Neuropathy chronic, - Continue gabapentin - Minimize opioid use 11. Hypokalemia. Resolved 12. Hypocalcemia. Resolved 13. Possible SBP.(Secondary diagnosis) She did have a diagnostic paracentesis revealing no organisms but a leukocytosis with salt car counts of about 170. She was certain ceftriaxone for possible SBP we will continue to follow closely. Continue ceftriaxone. Venous thromboembolism prophylaxis: Heparin and SCD CODE STATUS is full Disposition: Expect several more days of acute treatment of septic shock due to severe C. difficile colitis. Pain Evaluation: Adequate Pain Control VTE Prophylaxis: Sub-Q Heparin (Unfractionated) VTE Mechanical Devices: Intermittant Pneumatic CD Resuscitation Status: Limited Interventions Time spent 30 minute Mazin Paredes MD Jan 19, 2017 15:52
--- NOTE | 2017-01-19 17:53 | NUR ---
Wound Nursing to continue dressing changes per intervention Nursing wound dressing change. Right leg dressing change due 01/20. Wound care to reassess 01/22.
--- NOTE | 2017-01-19 18:13 | NUR ---
Loose stool/Urine/Lab Pt. has been having loose green stools throughout shift, mucous looking with no foul odor.Pt. has a bear draining to gravity and the urine is dark gaudencio with sediment, Pt. voided 250mL this shift. MD was made aware of Pts. potassium level at 3.0.
[2017-01-19] MEDS ORDERED: KCl 40 mEq/100 mL Premix (K 3 - 3.7 & Creat < 2) IV ONE (18:55)
[2017-01-19] MEDS: Ondansetron 2 mg/mL 2 mL Inj IVPUSH PRN (21:32)
[2017-01-20] VITALS (19 sets, daily range): BP systolic 97–118; BP diastolic 42–68; PULSE 94–109; RESP 12–20; O2SAT 90–98
[2017-01-20] MEDS: Heparin 5,000 Unit/mL Inj SUBQ SCH ×3 (00:26→21:00)
[2017-01-20] MEDS: Dextrose 5% Lactated Ringer's 1,000 ML IV SCH ×4 (01:00→21:14)
[2017-01-20] MEDS: Albumin 25% 100 ML IV SCH ×3 (05:06→21:22)
[2017-01-20] MEDS: metroNIDAZOLE Inj 500 MG in IV Premix 1 EACH IV SCH ×3 (05:06→21:16)
[2017-01-20 05:33] LABS: Mean Corpuscular Volume 89.1 fL (81-100)
--- NOTE | 2017-01-20 05:53 | NUR ---
Respiratory Patient on room air at start of shift with SpO2 in the upper 80s to low 90s. SpO2 dropped to 79% when patient fell asleep. 3L O2 via oxymask applied with improvement of SpO2 to 94%. Patient reluctant to keep the mask on because "80% is pretty good." Explained normal values for oxygen saturation to patient and encouraged continued use of the oxymask. Continue to monitor.
[2017-01-20] MEDS ORDERED: Propofol 10,000 mCg/mL 20 mL Inj ONE (07:00)
[2017-01-20] MEDS ORDERED: Glycopyrrolate 0.2 mg/mL 5 mL Inj ONE (07:00)
[2017-01-20] MEDS ORDERED: Rocuronium 10 mg/mL 5 mL Inj ONE (07:00)
[2017-01-20] MEDS ORDERED: Phenylephrine/NS 100 mCg/mL 10 mL Syringe IVPUSH ONE (07:00)
[2017-01-20] MEDS ORDERED: fentaNYL-PF 50 mCg/mL 2 mL Inj ONE (07:00)
[2017-01-20] MEDS ORDERED: Neostigmine 1 mg/mL 5 mL Inj ONE (07:00)
[2017-01-20] MEDS: oxyCODONE ER 10 mg ER12 Tablet PO SCH ×2 (08:30→20:30)
[2017-01-20] MEDS ORDERED: Ampicillin-Sulbactam Inj 3,000 MG in 0.9% Sodium Chloride 100 ML IV ONE (09:15)
[2017-01-20] MEDS: Nystatin 100,000 Unit/Gm 15 Gm Powder TOPICAL SCH ×2 (09:18→23:11)
[2017-01-20] MEDS: Pantoprazole 4 mg/mL 10 mL Inj IVPUSH SCH ×2 (09:18→21:00)
[2017-01-20] MEDS: cefTRIAXone Inj 2,000 MG in Dextrose 5% Minibag Plus 50 ML IV SCH (09:19)
--- NOTE | 2017-01-20 09:19 | PCM.PNMED ---
Subjective Date of Service Jan 20, 2017 Subjective The patient feels worse today, increased abdominal pain. Increased anorexia. No fevers or chills. The white blood cell count is up. She is somewhat dyspneic. She denies any chest pain. Exam Vital Signs Vital Sign - Last Date Time Temp Pulse Resp B/P Pulse Ox O2 Delivery O2 Flow Rate FiO2 01/20/17 09:06 94 01/20/17 04:54 Supplement Oxygen 01/20/17 03:16 36.4 16 97/58 93 3.00 01/15/17 12:00 93 Intake and Output 01/19/17 01/19/17 01/20/17 Cumulative From/Thru 15:00 23:00 07:00 01/10/17 15:14 - 01/20/17 06:19 Intake Total 3211 ml 1131 ml 56257 ml Output Total 250 ml 200 ml 6126 ml Balance 2961 ml 931 ml 36366 ml Intake Oral 400 ml 400 ml 6340 ml IV Total 2811 ml 731 ml 17530 ml Output Urine Total 250 ml 200 ml 5275 ml Urine/Stool Mix 1 ml Emesis 850 ml # Bowel Movements 4 2 41 Exam Lethargic but alert and oriented with fluent speech Anicteric sclera Neck supple. Lungs are clear with normal effort and rate. Heart is regular without murmur Abdomen is distended and somewhat tender. She also has some guarding and rebound. Extremities with 1-2+ edema. IVs and Medications Medications Reviewed: Medications were reviewed in detail Lab and Diagnostics Result Diagram: 01/20/17 0500 01/20/17 0500 Microbiology Assessment & Plan 1. Septic shock : Present on admission. Resolved. SIRS criteria including leukocytosis 19.4, 22% bandemia, tachycardia 116, blood pressure 71/47 on admission. Organ dysfunction based on lactic acid 5.8, acute kidney injury with serum creatinine 2.3 on admission. Due to severe C. difficile colitis. High mortality risk. Blood pressure stabilizing, and pressors are being weaned. Procalcitonin declining. White blood cell count peaked at 26.8 on day 2 and is now declining. Her C. difficile toxin colitis is slowly improving. - Norepinephrine has been weaned off. - Sepsis bundles ( See orders). Lactic acidosis has resolved. We will continue crystalloid and 125 an hour. She continues to have relative hypotension requiring intermittent fluid boluses but no pressors. We will continue to support her with fluid resuscitation. 2. Severe C. difficile Colitis: Slowly improving. (Primary diagnosis today) CT scan on January 17 indicated toxic megacolon. The patient was seen by Dr. Cortez and the decision is to follow clinically at this point. Blood tests are pending for this morning however she feels improved. Her abdominal exam is also improved. - Fidaxomicin Rx - Flagyl IV - Enteric precautions - FMS recommended to patient but she refuses Her colitis appears to be clinically worsening. Discussed the situation with Dr. Cortez of surgery.. We believe that laparotomy with possible colon resection may be the best. The patient will be taken to the operating room for laparotomy and probable colectomy today. 3. Metabolic acidosis , lactic acidosis.POA. Resolved. 4. Acute renal failure , POA. Resolved. 5. Urinary tract infection, acute. Was treated with antibiotics, had Escherichia coli 100,000 CFU's. Antibiotic course finished. Resolved. 6. Elevated troponin : Likely due to hypotension /septic shock . Patient has no angina - Follow clinically, no workup for ischemic cardiac disease at this time 7. Sacral decubitus ulcer, right upper tibial area decubitus ulcer, stage II, present on admission.(Secondary diagnosis) - Wound care ordered for this chronic and ongoing problem. 8. Right leg wound, stage III, present on admission. - Wound care ordered for this ongoing problem. 9. Acute metabolic encephalopathy, POA. Resolved 10. Neuropathy chronic, - Continue gabapentin - Minimize opioid use 11. Hypokalemia. Resolved 12. Hypocalcemia. Resolved 13. Possible SBP.(Secondary diagnosis) She did have a diagnostic paracentesis revealing no organisms but a leukocytosis with salt car counts of about 170. She was certain ceftriaxone for possible SBP we will continue to follow closely. Continue ceftriaxone. Venous thromboembolism prophylaxis: Heparin and SCD CODE STATUS is full Disposition: Expect several more days of acute treatment of septic shock due to severe C. difficile colitis. Pain Evaluation: Adequate Pain Control VTE Prophylaxis: Sub-Q Heparin (Unfractionated) VTE Mechanical Devices: Intermittant Pneumatic CD Resuscitation Status: Limited Interventions Time spent 35 minutes Mazin Paredes MD Jan 20, 2017 09:19
--- NOTE | 2017-01-20 11:09 | NUR ---
NUTRITION FOLLOW UP ASSESS: 66 YO F admitted with septic shock and severe C. diff colitis. CT showed evidence of toxic megacolon; status post paracentesis. Patient feels worse today, increased abdominal pain and anorexia, with no fever or chills. Her white blood cell count is up, and she is somewhat dyspneic. Plan is to undergo laparotomy and probable colectomy today. PMHx: Arthritis, COPD, CVA, Pneumonia, Lupus, TIA, anemia, osteoporosis, GERD, Tubal ligation, carpal tunnel, left hip repair. LABS: K+ 3.4, Chloride 110, BUn 4, Cr 0.56, glu 112, A1c 5.8, Ca 7.1, Alb 2.4. MEDS:Reviewed. GI: Loose green frequent stools; pt. refusing FMS. SKIN: Stage II PU's on sacrum and buttocks; PU on right upper calf per WC. WT: 84.2 kg (wt gain likely fluid related), BMI: 27.0 kg/m2, Admit Wt: 62.5 kg Previous Admit (12/16/16): 77.5 kg, IBW: 65.9 kg DIET: NPO for surgery. Previous intake very poor x 10 D. ESTIMATED NEEDS: COPD, wound, probable colectomy Calorie: 8543-6266 kcal/day (30-40 kcal/kg BW) Protein: 80-120 g/day (1.2-1.8 g/kg BW) NUTRITION DIAGNOSIS: 1) Increased nutrient needs related to wound healing and chronic illnesses as evidenced by ongoing treatment for wound on right leg, COPD and GI surgery - PERSISTS. 2) Inadequate oral intake related to GI upset as evidenced by C. Diff positive and minimal PO intake - PERSISTS. NUTRITION INTERVENTION: 1)Will add Impact Advance Recovery to trays once diet advanced to full liquids. 2)Recommend timely advance of diet; in the event this is not possible, strongly recommend nutrition support to mitigate significantly depleted nutrition stores. MONITOR/EVALUATE: NPO status, diet advance / tolerance, PO intake, wt, GI, wounds, labs, nutrition status, POC. Follow per high nutrition risk guidelines.
[2017-01-20] MEDS ORDERED: 0.9% Sodium Chloride 500 ML IV ONE (11:20)
[2017-01-20] MEDS ORDERED: KCl 40 mEq/100 mL (CENTRAL) 40 MEQ in IV Premix 1 EACH IV ONE (11:20)
[2017-01-20] MEDS ORDERED: 0.9% Sodium Chloride 250 ML ONE ×2 (12:15→21:05)
--- NOTE | 2017-01-20 13:01 | PROG NOTE ---
[address] [address] PROGRESS NOTE PATIENT: OSMAN WOLFE : 1950 MR#: [id number] ADMIT: 01/10/2017 JOB ID: [id number] DATE: 01/20/2017 SUBJECTIVE: The patient remains afebrile, but mildly hypotensive over the past 24-48 hours. She has required a fluid bolus for hypotension. She has now been on 48 hours of treatment for spontaneous bacterial peritonitis but her abdominal pain and tenderness seem to be increasing. LABORATORY DATA: Show that her white count has risen to 20 and is staying there. Her hematocrit is 26. We do not have a lactic acid from today. Her albumin is 2.4. IMPRESSION AND PLAN: She seems to be worsening within her abdomen, presumably from her C. difficile colitis. It is somewhat unusual that she seems to have recovered from the initial insult, but at this point, I think that she needs to have a laparoscopic exploration with anticipation of either a subtotal colectomy, or at the very least, a diverting ileostomy. Either way, she will end up with an ileostomy. I have recommended surgery to her today, and although she would prefer not to have an ileostomy given that she has life-threatening infection in her abdomen, she wants to proceed. I will make the decision regarding subtotal colectomy versus diverting ileostomy intraoperatively.
--- NOTE | 2017-01-20 15:26 | NUR ---
PT not completed today attempted PT; pt anxious about imminent surgery; feeling SOB; better when HOB elev; talked with pt a bit to try and calm fears and maybe distract her from her thoughts by doing a little PT, but pt continued to refuse; was interested in talking with someone when told of service; call placed to Janice servin, who was not in, but did leave a message to f/u with pt when in; PT to f/u 01/21
--- NOTE | 2017-01-20 15:30 | NUR ---
Surgery Pt. was taken by OR nurse for an ileostomy procedure from room [address] [facility] [address]. Pt. VS prior to leaving was stable. Pt. appeared nervous and talked to me about her nervousness. After talking Pt. was reassured that this was going to help her feel better and it was only temporary. Pt. has not returned to her room 2001 [facility] by the end of this shift.
[2017-01-20] MEDS ORDERED: Dexamethasone 4 mg/mL Inj IVPUSH PRN (16:00)
[2017-01-20] MEDS ORDERED: Phenylephrine 10,000 mCg/mL Inj IVPUSH PRN (16:00)
[2017-01-20] MEDS ORDERED: EPHEDrine Sulfate 50 mg/mL Inj IVPUSH PRN (16:00)
[2017-01-20] MEDS ORDERED: Ondansetron 2 mg/mL 2 mL Inj IVPUSH PRN (16:00)
[2017-01-20] MEDS ORDERED: MetoCLOpramide 5 mg/mL 2 mL Inj IVPUSH PRN (16:00)
[2017-01-20] MEDS ORDERED: Lactated Ringer's 500 ML IV PRN (16:00)
[2017-01-20] MEDS ORDERED: Lactated Ringer's 1,000 ML IV SCH (16:00)
--- NOTE | 2017-01-20 16:00 | PCM.HPANE ---
Patient Data Date of Service: Jan 20, 2017 (1600) Surgeon Admitting Provider:Rolando Hadley MD Attending Provider:Rolando Hadley MD Primary Care Physician:Ellie Rabago Other Provider: Reason for Visit Sepsis Ht/WT & BMI Height (Feet): 5 Height (Inches): 9.00 Weight (Kilograms): 84.200 Body Mass Index 20.41 Allergies Coded Allergies: No Known Allergies (Verified Allergy, Unknown, 01/10/17) Uncoded Allergies: HAYFEVER (Allergy, Unknown, 06/11/16) Past Anesthesia History Anesthesia History: Denies:: Abnormal Airway, Anesthesia Reactions, Difficult Intubation, Fam Anesthesia Reaction, Fam Malignant Hypertherm, Malignant Hyperthermia Diabetes History Hx Diabetes?: No Current Bedside Blood Glucose: 126 MRSA MRSA: No Medications Active Scripts Calcium Carbonate 200 Mg Tab.zlrw603 Mg PO TIDWM 14 Days Prov:Fco Bush 12/27/16 Oxycodone ER (Oxycontin)10 Mg Tab.er.12h10 Mg PO BID #4 Prov:Fco Bush 12/27/16 oxyCODONE 5 Mg Tablet5 Mg PO Q4H PRN For Moderate Pain #4 TABLET Prov:Fco Bush 12/27/16 Sennosides (Senna)8.6 Mg Oqabry97.2 Mg PO BID PRN For Constipation #30 TABLET Prov:ALBERT GUERRA DO 12/16/16 Gabapentin (Neurontin)400 Mg Mltyvga170 Mg PO QID #30 CAPSULE Prov:ALBERT GUERRA DO 12/16/16 diphenhydrAMINE HCl (Benadryl)25 Mg Dulgcal33 Mg PO Q4H PRN For Itching #30 CAPSULE Prov:ALBERT GUERRA DO 12/16/16 Reported Medications Ondansetron 4 Mg Tablet4 Mg PO Q8H PRN For Nausea 01/10/17 Cholecalciferol (Vitamin D3) (Vitamin D3)1,000 Unit Tab.chew1,000 Unit PO DAILY 01/10/17 Alendronate Sodium (Fosamax)70 Mg Jljgqt82 Mg PO WEEKLY 30 Days Ref 0 Sundays01/10/17 Fluticasone/Salmeterol (Advair 250-50 Diskus)60 Puff/Inh Disk1 Puff IH BID #1 DISK Ref 0 01/10/17 Acetaminophen 325 Mg Jjuirol024 Mg PO Q4 PRN For Pain 01/10/17 Bisacodyl (Dulcolax)5 Mg Tablet.dr5 Mg PO BID 01/10/17 Loratadine (Claritin)10 Mg Borduaw15 Mg PO DAILY 01/10/17 Multivitamin (Multivitamins)1 Each Capsule1 Each PO DAILY 12/14/16 Albuterol HFA (Proair HFA)8.5 Gm Hfa.aer.ad2 Puffs INH Q4H PRN For Shortness of Breath 12/14/16 Furosemide 20 Mg Tab20 Mg PO BIDAC #60 12/14/16 Aspirin Chew 81 Mg Chew81 Mg PO DAILY Ref 0 06/11/16 History History of ENT Problems?: Yes HEENT History: Positive for:: Sinus Problem (allergic rhinitis) Denies:: Abnormal Airway Difficult Intubation Dysphagia Hearing Problem Denture Type: Full- Upper Full- Lower Hx of Heart Problems?: Yes Cardiovascular History: Positive for:: Edema Denies:: Atrial Fibrillation Cardiac Surgery Chest Pain Congestive Heart Failure Heart Murmur Hypertension Irregular Heartbeat Pacemaker Thrombophlebitis Valvular Heart Disease Hx of Respiratory Problem?: Yes Respiratory History: Positive for:: COPD Pneumonia (X 2 WHEN IN LATE ) Denies:: Asthma Chest Surgery Cough Dyspnea Emphysema Hemoptysis Tuberculosis Hx Neurologic Problems?: Yes Neurological History: Positive for:: CVA (1989 CVA vs. TIA) Denies:: Alzheimer's Disease Dementia Dizziness Headaches Parkinson's Disease Seizures Hx of GI Problems?: Yes Gastrointestinal History: Positive for:: Cirrhosis Gastroesphageal Reflux Denies:: Diverticulitis Gastrointestinal Bleeding Heartburn Hepatitis Hiatal Hernia Rectal Bleeding Other GI Pertinent History: cirrhosis C-diff Hx of Problems?: Yes Genitourinary History: Positive for:: Urinary Tract Infection (recurrent) Other Pertinent History: hx of rectovaginal fistula Female Hx: Denies:: Currently Hx Musculoskeletal Problems?: Yes Musculoskeletal History: Positive for:: Back Injury (spinal stenosis cervical region) Denies:: Joint Replacement Hx of Psycho/Social Problems?: No Psycho Social History: Denies:: Anxiety Bipolar Disorder Hx Depression Suicide Attempt Hx Surgeries?: Yes (carpal tunnel, tonsils/ adenoids, lt.ankle ORIF, lt.hip repair, tubal lig.) Hx Any Other Health Problems?: Yes Other History: Denies:: Cancer Endocrine Disease Hospitalization (just hospitalized for cellulitis) Thyroid Disease History Blood Transfusions: Positive for:: Blood Transfusions Denies:: Blood Transfuse Reaction Hx Diabetes: NoBedside Blood Glucose: 126 Hx Alcohol Use: NoHx Substance Use: No Smoking Status: Current Every Day Smoker Have You Smoked inLast 12 mo: Yes Stop/Bang Treated for Sleep Apnea?: No Do You Have a CPAP Machine?: No S-Snoring: Do You Snore Loudly: Yes T-Tired: feel tired, fatigued: Yes O-Obsered: Observed not breath: No P-Blood Pressure: treated: No B- Body Mass Index > 35 kg/m2: No A- Age over 50: Yes N- Neck Large Circumference: No G- Gender Male: No BETTE Total Score: 2 BETTE Risk Assessment: Low Risk, <3 Yes Risk Assessment Category Category 1A: Patient has history of documented sleep apnea, and HAS NOT received any narcotic, sedative or anesthesia administration during this stay. Category 1B: Patient has history of documented sleep apnea, and HAS received any narcotic , sedative or anesthesia administration during this stay Category 2: Patient has SUSPECTED Obstructive Sleep Apnea, and HAS received any narcotic , sedative or anesthesia administration during this stay. Category 3: Patient has SUSPECTED Obstructive Sleep Apnea and HAS NOT received narcotic, sedative or anesthesia administration during this stay. Category 4: Outpatient in Procedural Areas with known sleep apnea or who screen positive for High Risk via the STOP/BANG questionnaire. Exam Exam Vital Signs Vital Signs Date Time Temp Pulse Resp B/P Pulse Ox O2 Delivery O2 Flow Rate FiO2 01/20/17 12:15 36.7 94 20 118/68 91 Room Air 01/20/17 10:20 101 20 101/60 90 Room Air 01/20/17 09:06 94 General Appearance: Alert, Oriented X3 HEENT/AIRWAY: MP 1 Lungs: Clear to Auscultation Heart: Exam Unremarkable Meds/Labs/Diagnostics Admission Meds Current Medications Potassium Chloride 40 meq/ Premix 100 ml @ 25 mls/hr ONCE ONCE IV Last administered on 01/19/17t 21:58; Start 01/19/17 at 18:55; Stop 01/19/17 at 22:54; Status DC Sodium Chloride 500 ml @ 0 mls/hr Q0M ONCE IV Last administered on 01/20/17 11: 46; Start 01/20/17 at 11:20; Stop 01/20/17 at 11:22; Status DC Potassium Chloride 40 meq/ Premix 100 ml @ 25 mls/hr ONCE ONCE IV Last administered on 01/20/17 11:57; Start 01/20/17 at 11:20; Stop 01/20/17 at 15:19; Status DC Sodium Chloride (Normal Saline) 250 ml @ STK-MED ONCE .ROUTE Last administered on 01/20/17 12:20; Start 01/20/17 at 12:15; Stop 01/20/17 at 12:16; Status DC Bedside Blood Glucose: 126 Labs Test 01/10/17 15:33 01/11/17 05:00 01/12/17 12:15 01/13/17 05:10 Hemoglobin A1c 5.8% (4.8-5.6) Pro-B-Type Natriuretic Peptide 8399pg/mL (0-301) Troponin T 0.045ug/L (0.0-0.011) Urine Color Yellow (YELLOW) Urine Appearance Hazy (CLEAR,HAZY) Urine pH 6.0 (5.0-8.0) Urine Specific Lewis 1.025 (1.003-1.035) Urine Protein Tracemg/dL (NEG,TRACE) Urine Glucose (UA) Negativemg/dL (NEGATIVE) Urine Ketones Negativemg/dL (NEGATIVE) Urine Occult Blood Negative (NEGATIVE) Urine Nitrite Negative (NEGATIVE) Urine Bilirubin Negative (NEGATIVE) Urine Urobilinogen Normalmg/dL (NORMAL) Urine Leukocyte Esterase Trace (NEGATIVE) Urine RBC 0-2/hpf (0-2) Urine WBC 0-5/hpf (0-5) Urine Epithelial Cells Occasional/hpf (NONE-MOD) Urine Crystals None seen (NONE SEEN) Urine Bacteria Few/hpf (NONE-FEW) Urine Hyaline Casts None/lpf (NONE) Urine Granular Casts None seen (NONE SEEN) Urine Waxy Casts None seen (NONE SEEN) Urine Red Blood Cell Casts None seen (NONE SEEN) Urine White Blood Cell Casts None seen (NONE SEEN) Urine Mucus None seen (None Seen) Urine Trichomonas None seen (NONE SEEN) Urine Yeast None (NONE SEEN) Urinalysis Comment Urine Culture Reflexed Indicated Band Neutrophils % 2% (1-5) Cortisol 15.0ug/dL (.) Test 01/15/17 02:45 01/16/17 16:05 01/17/17 11:15 01/17/17 12:27 Phosphorus Level 2.3mg/dL (2.5-4.9) Procalcitonin 2.13ng/mL (0.00-0.08) Hold Urine Received (Received) Prothrombin Time 12.2sec (8.1-12.5) Prothromb Time International Ratio 1.14ratio Body Fluid Source Peritoneal fluid Body Fluid Color Straw (Clear) Body Fluid Appearance Clear Body Fluid WBC 175/mm3 Body Fluid RBC 85/mm3 Body Fluid Polynuclear WBCs 40% Body Fluid Lymphocytes 25% Body Fluid Monocytes 30% Body Fluid Eosinophils 0% Body Fluid Basophils 0% Body Fluid Albumin 0.8g/dL (.) Body Fluid Total Bilirubin < 0.2mg/dL Body Fluid Lactate Dehydrogenase 97U/L Body Fluid Amylase 16U/L Body Fluid Triglycerides 30mg/dL (.) Body Fluid Comment Peritoneal Fluid Glucose 162mg/dL Test 01/18/17 12:00 01/19/17 04:30 01/20/17 05:00 Neutrophils (%) (Auto) 78.2% (40-74) Lymphocytes (%) (Auto) 9.1% (14-46) Monocytes (%) (Auto) 8.4% (4-12) Eosinophils (%) (Auto) 2.8% (0-5) Basophils (%) (Auto) 0.2% (0-3) Lactic Acid Level 1.6mmol/L (0.4-2.0) Magnesium Level 1.3mg/dL (1.6-2.6) White Blood Count 20.8th/mm3 (3.8-10.1) Red Blood Count 2.93mil/mm3 (3.90-5.20) Hemoglobin 8.5g/dL (12.0-15.6) Hematocrit 26.1% (35.0-46.0) Mean Corpuscular Volume 89.1fL (81-100) Mean Corpuscular Hemoglobin 29.0pg (27.0-35.0) Mean Corpuscular Hemoglobin Concent 32.6% (32.0-37.0) Red Cell Distribution Width 18.3% (12.3-15.4) Platelet Count 330bil/L (150-400) Sodium Level 141mEq/L (134-144) Potassium Level 3.4mEq/L (3.5-5.2) Chloride Level 110mEq/L (97-108) Carbon Dioxide Level 24mmol/L (18-29) Blood Urea Nitrogen 4mg/dL (8-27) Creatinine 0.56mg/dL (0.57-1.00) Estimat Glomerular Filtration Rate 156mL/min (>59) Glucose Level 112mg/dL (60-99) Calcium Level 7.1mg/dL (8.5-10.1) Total Bilirubin 0.2mg/dL (0.0-1.2) Aspartate Amino Transf (AST/SGOT) 8U/L (0-50) Alanine Aminotransferase (ALT/SGPT) 5U/L (0-32) Alkaline Phosphatase 41U/L (25-165) Total Protein 3.8g/dL (6.4-8.4) Albumin 2.4g/dL (3.4-5.0) Plan Impression Patient chart reviewed, patient interviewed and anesthestic plan with risks, benefits, and alternatives discussed, and informed consent obtained. NPO Status: 12/20/2016 ASA Physical Status: ASA3 Severe Disease Anesthetic Support Modalities: Arterial Line Anesthetic Plan: GA Bene/Risks/Altern/Consents: Yes HP Complete Prior to Induction: Yes Suhas Wilson MD Jan 20, 2017 16:00
[2017-01-20] MEDS ORDERED: Lactated Ringer's 1,000 ML IV ONE (16:06)
[2017-01-20] MEDS ORDERED: Bupivacaine-MPF 0.5% 30 mL Inj INFILTRATE ONE (16:42)
--- NOTE | 2017-01-20 17:35 | PCM.ANEP1 ---
Post Anesthesia Phase 1 PACU Phase 1 Assessment Date of Service: Jan 20, 2017 (1600) Vital Signs 109/60, 110, 97%, 20, 36.6 Vital Signs Date Time Temp Pulse Resp B/P Pulse Ox O2 Delivery O2 Flow Rate FiO2 01/20/17 12:15 36.7 94 20 118/68 91 Room Air 01/20/17 10:20 101 20 101/60 90 Room Air Anesthetic Administered: GA Level of Alertness: Awake, talking HERRON's with Equal Strength: Yes Pain: Yes (Unrated) Pain Scale Score: 5 Nausea or Vomiting: Yes Oxygen Delivery: Simple Mask Lungs: Clear to Auscultation Dermatome Level: Full Sensation Summary TOLERATED GETA WELL Suhas Wilson MD Jan 20, 2017 17:35
--- NOTE | 2017-01-20 17:36 | PCM.ANEP2 ---
Post Anesthesia Evaluation ASA/CMS Post Anesthesia VS in Patient's Normal Range?: Yes Resp Stable; Airway Patent?: Yes CV Function & Hydration Stable: Yes Mental Status Recovered?: Yes Pain control Satisfactory?: Yes N/V Control Satisfactory?: Yes Suhas Wilson MD Jan 20, 2017 17:36
[2017-01-20] MEDS: fentaNYL-PF 50 mCg/mL 2 mL Inj IVPUSH PRN ×2 (17:49→17:55)
[2017-01-20] MEDS: HYDROmorphone 1 mg/mL Inj IVPUSH PRN ×4 (18:10→20:08)
--- NOTE | 2017-01-20 18:16 | OP ---
[address] [address] OPERATIVE REPORT PATIENT: OSMAN WOLFE : 1950 MR#: [id number] ADMIT: 01/10/2017 JOB ID: [id number] DATE OF SURGERY: 01/20/2017 SURGEON: Rolando Cortez MD. SPECIAL NEEDS TUTOR: Emani Parker PA-C. PREOPERATIVE DIAGNOSIS(ES): Recalcitrant Clostridium difficile colitis with need for surgical intervention. POSTOPERATIVE DIAGNOSIS(ES): Probable spontaneous bacterial peritonitis, incidental finding of umbilical hernia. PROCEDURE: Diagnostic laparoscopy, lysis of adhesions, open repair of umbilical hernia. INDICATIONS: This is a 66-year-old woman who was admitted over a week ago with fulminant C. difficile colitis. She initially seemed to respond to treatment for C. diff colitis but then began having increased abdominal tenderness and rising white count over the past 3-4 days. The diagnosis of spontaneous bacterial peritonitis was entertained, her ascites was tapped, and findings were equivocal. She has been on 48 hours of intravenous antibiotics and continues to worsen with increasing abdominal tenderness and a rising white count. She had a CT within the past several days. It was felt to demonstrate toxic megacolon and worse thickening of her colon and there was concern that she had C. difficile colitis that was recalcitrant to standard therapy. She was recommended to go to the operating room for planned laparoscopic possible open surgery with anticipated subtotal colectomy versus diverting loop ileostomy. FINDINGS: 1. special education teaching assistant was medically necessary for safe performance of the surgery. 2. Approximately 3600 cc of clearish ascites was suctioned off. 3. The patient's colon did not have the appearance of toxic megacolon and in fact appeared quite healthy as if it was responding to the treatment for C. difficile colitis. 4. No other acute inflammatory pathology was identified, specifically no sign of peptic ulcer perforation, appendicitis or cholecystitis as described below. 5. At the end of the procedure it was felt that her abdominal tenderness and rising white count was most likely related to spontaneous bacterial peritonitis and therefore I did not perform any bowel resection nor a loop ileostomy. 6. Patient had an incidental finding of umbilical hernia. At the end of the procedure we repaired this with an 0 Prolene through an open incision. PROCEDURE: Patient brought to the operating room. General anesthetic was administered. A-line was placed. SCOAP protocol was followed. She had received perioperative antibiotics just within hour of our time-out. I elected not to repeat them. We began with an optical trocar in the left upper quadrant and entered the abdomen. We insufflated. The abdomen was clear. There was no fibrous exudate. There was a fair amount of fluid in the gutters and we looked up anteriorly and we could see that there were some adhesions of the greater omentum beginning at a 1 cm umbilical hernia and extending down the midline towards the pelvis. I made a skin incision just in the outer perimeter of the umbilical hernia in a transverse fashion and placed a 5 mm port that went through the umbilical hernia. We were now able to suction out approximately 2 L of fluid. I placed one additional port and we emptied out the abdomen of approximately 3600 cc clearish yellow ascites. There was no particulate matter in the ascites. The liver had the appearance consistent with cirrhosis. We now began to look at the colon. To get a good look at the transverse colon, we had to take down the adhesions of the greater omentum to the lower midline and we did this sharply. We were now able to look at the sigmoid colon, descending colon, transverse colon, and ascending colon sequentially. The colon actually looked very good, normal in color. The sigmoid was a little bit thickened but there was nothing to suggest that the patient had fulminant C. difficile colitis that was not responsive to her treatment. In fact she clearly did not have toxic megacolon. At this point, it was clear that she would not need a subtotal colectomy and I even questioned whether we had the right diagnosis of recalcitrant C. difficile colitis and whether a loop ileostomy would benefit her. Particularly given her chronic ascites loop ileostomy would carry some morbidity aside from the simple fact that she really has expressed a desire not to have an ileostomy unless needed. We now took a look at her gallbladder which was clearly not inflamed. We checked underneath the left and right lobe of the liver and could see that she had no evidence of perforated ulcer. We got a look at her appendix that was normal. The small intestine was mildly dilated but appeared normal. The way I put it all together was that she truly does have spontaneous bacterial peritonitis and that we simply need to continue treating her for that rather than perform any bowel resection or diversion. We therefore elected to terminate the laparoscopic portion of the procedure as she had an umbilical hernia. After I removed our laparoscopic ports I made an incision extending the laparoscopic port incision across the umbilical hernia. I grasped the two ends with a Chema clamp, and we performed an open umbilical hernia repair with a single [id number] 0 Prolene suture. We now closed the subcutaneous tissues and anterior fascia of the two 5 mm ports with Vicryl followed by subcuticular Monocryl. Dry dressings were applied. The patient was extubated. We will transfer to the CCU given the fact that we took off 3.5 L of fluid and her spontaneous bacterial peritonitis apparently has been getting worse despite what was felt to be adequate therapy. I have discussed the case with Dr. Melissa regarding antibiotic choice postoperatively.
[2017-01-20 21:59] LABS: BASOPHILS % (AUTO) 0.1 % (0-3); EOSINOPHILS % (AUTO) 0 % (0-5); MONOCYTES % (AUTO) 1.5 % (4-12); Mean Corpuscular Hemoglobin 29.3 pg (27.0-35.0); Mean Corpuscular Volume 89.3 fL (81-100); NEUTROPHILS % (AUTO) 95.7 % (40-74); Platelet Count 304 bil/L (150-400)
[2017-01-20] MEDS ORDERED: 0.9% Sodium Chloride 500 ML ONE (22:23)
[2017-01-20 22:39] LABS: Magnesium 1.1 mg/dL (1.6-2.6)
[2017-01-20] MEDS ORDERED: Norepinephrine 8,000 mCg/250 mL NS Premix IV ONE (22:47)
[2017-01-20] MEDS: Norepinephrine 8,000 mCg/250 mL D5W Premix IV SCH (22:55)
[2017-01-20] MEDS ORDERED: Mag Sulf 4 Gm/100 mL IV Premix (Mag < 1.6 & Creat < 2) IV ONE (23:35)
[2017-01-21 00:05] VITALS: BP 119/53; PULSE 103; RESP 12; O2SAT 94
[2017-01-21] MEDS: Heparin 5,000 Unit/mL Inj SUBQ SCH ×3 (00:48→18:02)
[2017-01-21 03:20] LABS: BASOPHILS % (AUTO) 0 % (0-3); EOSINOPHILS % (AUTO) 0 % (0-5); MONOCYTES % (AUTO) 2.1 % (4-12); Mean Corpuscular Hemoglobin 29.5 pg (27.0-35.0); Mean Corpuscular Volume 88.8 fL (81-100); NEUTROPHILS % (AUTO) 94.2 % (40-74); Platelet Count 322 bil/L (150-400)
[2017-01-21 03:48] LABS: Magnesium 2.1 mg/dL (1.6-2.6)
[2017-01-21 04:00] VITALS: BP 121/51; PULSE 88; RESP 14; O2SAT 95
[2017-01-21] MEDS: metroNIDAZOLE Inj 500 MG in IV Premix 1 EACH IV SCH ×3 (04:10→20:16)
[2017-01-21] MEDS: Albumin 25% 100 ML IV SCH ×3 (04:10→20:17)
[2017-01-21] MEDS: Dextrose 5% Lactated Ringer's 1,000 ML IV SCH ×3 (05:53→21:36)
--- NOTE | 2017-01-21 06:23 | NUR ---
post op/bp received pt from pacu at 2020 per pcu bed to ccu room 2014, pt alert, occasionally forgetful, rex weak, pt helps turn in bed as able, answers questions appropriately, pt sleeping most of shift, resp rate 12-teens, when awake pt with multiple requests and unhappy about having loose stools, pt had two loose stools last night, pt particular about how she wants things done, pt requiring lots of tlc, right leg wrap from knee to toes intact, warm toes, left leg warm, palpable pulse, pitting edema, scd on, dry flakey skin, gaudencio uop per fc, improved as ivf per orders given, abd soft, some pitting edema noted on lateral aspects bilaterally, no n/v, gera sips h20 well t/o night, three sml abd inc, two dressings cdi, umbilical area dressing with sml amount of serousang output, ls- faint base crackles, hob up, sats on two liters o2 per nc=mid 90's, pt on oxymask while asleep due to being a mouth breather, right ij intact, cvp=14-15, left radial a line intact, tele sr with pac's and ?afib hr up to 120 intermittently briefly, noted in earlier tele monitoring, labs drawn post surgery, mg rider given and md aware of calcium/albumin and corrected calcium level, no new orders, at approx [id number] pt's bp 80-90/50, map 50's, norepi gtt started, weaned down t/o shift as able, pt more awake this am and looking at menu for breakfast, see ccu flow sheet, cont monitoring, plan:wean norepi as able,
[2017-01-21 08:00] VITALS: BP 110/56; PULSE 90; RESP 12; O2SAT 95
[2017-01-21] MEDS: Nystatin 100,000 Unit/Gm 15 Gm Powder TOPICAL SCH ×2 (08:24→20:17)
[2017-01-21] MEDS: Pantoprazole 4 mg/mL 10 mL Inj IVPUSH SCH ×2 (08:24→18:02)
[2017-01-21] MEDS: oxyCODONE ER 10 mg ER12 Tablet PO SCH ×2 (08:25→20:17)
[2017-01-21] MEDS: cefTRIAXone Inj 2,000 MG in Dextrose 5% Minibag Plus 50 ML IV SCH (09:44)
--- NOTE | 2017-01-21 10:19 | DRSVH ---
PROCEDURE: X-RAY CHEST ONE VIEW, PORTABLE ([id number]) INDICATIONS: 66 year-old female with cough. TECHNIQUE: One view of the chest was acquired. COMPARISON: [facility], CR, XR CHEST 1VW (PORTABLE), 01/19/2017, 9:27. [facility], CR, XR CHEST 1VW, 01/10/2017, 15:57. [facility], CR, XR CHEST 1VW (PORTABLE), 12/13, 18:32. FINDINGS: Surgical changes and devices: Right internal jugular central venous catheter remains in expected posi tion. Lungs and pleura: There is increased retrocardiac and perihilar opacity, along with increased patchy right lower lung opacity. Small bibasilar pleural effusions are present. No pneumothorax. Mediastinum: Mediastinal contours appear normal. Heart size is normal. Bones and chest wall: No suspicious bony lesions. Moderate thoracic spine dextroscoliosis is again noted. There is asymmetric significant right glenohumeral joint degeneration. Overlying soft tissues appear unremarkable. IMPRESSION: Findings consistent with increasing bilateral bronchopneumonia, with persistent small bib asilar pleural effusions. Dictated by: Tai Kee M.D. on 01/21/2017 at 10:15 Approved by: Tai Kee M.D. on 01/21/2017 at 10:17
--- NOTE | 2017-01-21 10:58 | PCM.PNMED ---
Subjective Date of Service Jan 21, 2017 Subjective She is a little short of breath. She has less abdominal pain. Less diarrhea. She denies confusion. No chest pain. Her expiratory laparotomy yesterday revealed fairly normal appearing colon. She had minimal ascites which was washed out. Fluid was essentially clear. She had a incidental umbilical hernia repair but no other procedures performed other than the exploratory laparotomy. Exam Vital Signs Vital Sign - Last Date Time Temp Pulse Resp B/P Pulse Ox O2 Delivery O2 Flow Rate FiO2 01/21/17 04:00 Supplement Oxygen 01/21/17 04:00 36.6 88 14 121/51 95 2.00 01/15/17 12:00 93 Intake and Output 01/20/17 01/20/17 01/21/17 Cumulative From/Thru 15:00 23:00 07:00 01/10/17 15:14 - 01/21/17 06:19 Intake Total 1350 ml 1757 ml 68409 ml Output Total 490 ml 350 ml 6966 ml Balance 860 ml 1407 ml 34648 ml Intake Oral 50 ml 6390 ml IV Total 1300 ml 1757 ml 95874 ml Output Urine Total 490 ml 350 ml 6115 ml Urine/Stool Mix 1 ml Emesis 850 ml # Bowel Movements 2 2 45 Exam Alert oriented 3, somewhat lethargic. Fluent speech Anicteric sclerae. Neck supple. Lungs are clear with normal left rate. Heart is regular without murmur. Abdomen soft nontender Extremities are noted for 1+ edema. No skin rash or lesions. IVs and Medications Medications Reviewed: Medications were reviewed in detail Lab and Diagnostics Result Diagram: 01/21/17 0300 01/21/17 0300 Microbiology Assessment & Plan 1. Septic shock : Present on admission. Recurrent.(Secondary diagnosis) The patient had recurrent hypotension postoperatively. I norepinephrine drip was resumed. She is now maintaining maps of approximately 70 with norepinephrine. IV fluid resuscitation continues. We will check a lactate. Admission SIRS criteria including leukocytosis 19.4, 22% bandemia, tachycardia 116, blood pressure 71/47 on admission. Organ dysfunction based on lactic acid 5.8, acute kidney injury with serum creatinine 2.3 on admission. Due to severe C. difficile colitis. High mortality risk. Blood pressure stabilizing, and pressors are being weaned. Procalcitonin declining. White blood cell count peaked at 26.8 on day 2 and is now declining. Her C. difficile toxin colitis is slowly improving. - Norepinephrine has been weaned off. - Sepsis bundles ( See orders). Lactic acidosis has resolved. We will continue crystalloid and 125 an hour. 2. Severe C. difficile Colitis: Slowly improving. (Primary diagnosis today) CT scan on January 17 indicated toxic megacolon. The patient was seen by Dr. Cortez and the decision is to follow clinically at this point. Blood tests are pending for this morning however she feels improved. Her abdominal exam is also improved. - Fidaxomicin Rx - Flagyl IV - Enteric precautions - FMS recommended to patient but she refuses Laparotomy indicated a fairly normal-looking colon. She however continues to appear to have symptomatic C. difficile toxin colitis. We will continue herx 3. Metabolic acidosis , lactic acidosis.POA. Resolved. 4. Acute renal failure , POA. Resolved. 5. Urinary tract infection, acute. Was treated with antibiotics, had Escherichia coli 100,000 CFU's. Antibiotic course finished. Resolved. 6. Elevated troponin : Likely due to hypotension /septic shock . Patient has no angina - Follow clinically, no workup for ischemic cardiac disease at this time 7. Sacral decubitus ulcer, right upper tibial area decubitus ulcer, stage II, present on admission.(Secondary diagnosis) - Wound care ordered for this chronic and ongoing problem. 8. Right leg wound, stage III, present on admission. - Wound care ordered for this ongoing problem. 9. Acute metabolic encephalopathy, POA. Resolved 10. Neuropathy chronic, - Continue gabapentin - Minimize opioid use 11. Hypokalemia. Resolved 12. Hypocalcemia. Resolved 13. Possible SBP.(Secondary diagnosis) She did have a diagnostic paracentesis revealing no organisms but a leukocytosis with salt car counts of about 170. She was certain ceftriaxone for possible SBP we will continue to follow closely. Continue ceftriaxone. Venous thromboembolism prophylaxis: Heparin and SCD CODE STATUS is full Disposition: Expect several more days of acute treatment of septic shock due to severe C. difficile colitis. Pain Evaluation: Adequate Pain Control VTE Prophylaxis: Sub-Q Heparin (Unfractionated) VTE Mechanical Devices: Intermittant Pneumatic CD Resuscitation Status: Limited Interventions Time spent 35 minutes Mazin Paredes MD Jan 21, 2017 10:58
[2017-01-21] MEDS: Meropenem Inj 1,000 MG in IV Premix 1 EACH IV SCH ×2 (11:32→18:03)
[2017-01-21] MEDS: Vancomycin 250 mg Oral Capsule PO SCH ×2 (11:43→18:03)
[2017-01-21 12:00] VITALS: BP 103/58; PULSE 90; RESP 19; O2SAT 97
[2017-01-21 12:39] LABS: APPEARANCE,URINE CLOUDY (CLEAR,HAZY); COLOR,URINE YELLOW (YELLOW); OCCULT BLOOD,URINE SMALL (NEGATIVE); UROBILINOGEN,URINE NORMAL (NORMAL); YEAST,URINE MANY (NONE SEEN)
--- NOTE | 2017-01-21 14:35 | PROG NOTE ---
[address] [address] PROGRESS NOTE PATIENT: OSMAN WOLFE : 1950 MR#: [id number] ADMIT: 01/10/2017 JOB ID: [id number] DATE: 01/21/2017 PULMONARY CRITICAL CARE PROGRESS NOTE: The patient is a 66-year-old woman admitted to the hospital with severe Clostridium difficile colitis and septic shock on January 10. INTERVAL HISTORY: She went to the operating room yesterday with Dr. Cortez for a diagnostic laparoscopy. She had been on the floor prior to the procedure but was brought into the ICU postprocedure because of her vasopressor requirement. Pressors have not been weaned off yet and she becomes hypotensive with stopping the minimal dose of pressors that she is on. She continues to have diarrhea. She has some abdominal pain but not too bad. She denies any nausea or vomiting. She has a cough with some sputum. REVIEW OF SYSTEMS: As above. PHYSICAL EXAMINATION: Vital signs reviewed. Temperature 36.6, pulse 80, respirations 14, BP 120/51, sats 95% on 2 L nasal cannula. General: Pale, chronically ill-appearing, but alert and oriented. In no distress. Chest is clear to auscultation anteriorly. Abdomen slightly distended. Slightly tender. LABORATORIES: Reviewed. WBC up at 22.4, unchanged and perhaps going up even from the last few days. Hemoglobin 7.9, platelets 322. Chemistry reviewed and within normal limits. Intake and output notable for urine output of only 700 cc and it has been anywhere from 500-650 cc the last few days. ASSESSMENT AND RECOMMENDATIONS: 1. Septic shock. 2. Clostridium difficile colitis. 3. Possible spontaneous bacterial peritonitis. 4. Acute kidney injury--stable. 5. Oliguria. 6. Persistent leukocytosis. This 66-year-old woman had lower extremity cellulitis requiring debridement and antibiotics in November and was discharged at that time. She re-presented on January 10 with Clostridium difficile colitis and septic shock. Over her long hospital stay so far, she really has not completely improved. She went out of the ICU, off pressors, and then has been readmitted now after a diagnostic laparoscopy done yesterday by Dr. Cortez. Now she is back on norepinephrine albeit at a very low dose but we are having difficulty weaning it off as before. She is still getting fidaxomicin p.o., IV Flagyl. She is also on ceftriaxone for the possibility of spontaneous bacterial peritonitis even though her ascitic fluid from a few days ago only had a total of 175 white cells, and only a fraction of that was PMNs. This is a frustrating case of a patient who seems to have some kind of intra-abdominal process that is causing leukocytosis and persistent diarrhea, but her bowel did not look bad at all on diagnostic laparoscopy yesterday so no resection or ileostomy was done. At this point, we are going to add p.o. vancomycin for her C. difficile in addition to fidaxomicin and Flagyl since she is simply not improving. I am also going to broaden her from ceftriaxone to meropenem instead. Will see how she does with these changes. We also have Fungitell pending. If she continues to worsen, then I would strongly consider adding micafungin. Dr. Mehta takes over the pulmonary service tomorrow. Critical care time is 45 minutes.
[2017-01-21 16:00] VITALS: BP 98/47; PULSE 87; RESP 12; O2SAT 97
--- NOTE | 2017-01-21 17:15 | PROG NOTE ---
[address] [address] PROGRESS NOTE PATIENT: OSMAN WOLFE : 1950 MR#: [id number] ADMIT: 01/10/2017 JOB ID: [id number] DATE: The patient is postop day one laparoscopic exploration for planned colectomy versus diverting ileostomy with findings of healthy-appearing colon and therefore we simply washed out her ascites. She has remained in the ICU over the past 24 hours. She is currently on a minimal dose of pressors, with subjectively improved abdominal pain. EXAMINATION: On examination, she is awake and alert, her abdomen is soft and less tender than it was yesterday and the day before. Her white count remains elevated at 22,000. IMPRESSION AND PLAN: She remains a bit of a mystery as to why she is doing worse over the previous 48-72 hours, though I am inclined to feel this represents continued resolution of spontaneous bacterial peritonitis which was secondary to her primary problem of severe Clostridium difficile colitis. By all parameters other than her white count, her C. diff colitis is improving including direct observation (photos are in the chart). Her wounds are dry today and General Surgery will continue to follow her this hospitalization.
--- NOTE | 2017-01-21 18:57 | NUR ---
BP/pain/skin Pt continues to be on pressors throughout shift, HR SR with PACs. Pt tolerating q2h turns fair, mostly complaining of abd pain. Giving scheduled oxycontin as well as gabapentin and PRN oxycodone 5mg for breakthrough pain. Pt FELDT score 2, RASS score 0 to -1 throughout shift. Pt had two BM, loose and green. Used criticaid barrier cream after barrier wipes as well as scheduled nystatin powder. Pt reluctant to turn and will pull pillows out from under her when she is uncomfortable. Frequent turns and rounding continues.
[2017-01-21 20:00] VITALS: BP 108/68; PULSE 89; RESP 15; O2SAT 99
[2017-01-21] MEDS ORDERED: 0.9% Sodium Chloride 250 ML ONE (21:29)
[2017-01-21] MEDS: Norepinephrine 8,000 mCg/250 mL D5W Premix IV SCH (21:35)
[2017-01-21] MEDS: Ondansetron 2 mg/mL 2 mL Inj IVPUSH PRN (21:36)
[2017-01-22 00:05] VITALS: BP 115/86; PULSE 95; RESP 16; O2SAT 98
[2017-01-22] MEDS: Heparin 5,000 Unit/mL Inj SUBQ SCH ×3 (00:05→16:17)
[2017-01-22] MEDS: Meropenem Inj 1,000 MG in 0.9% Sodium Chloride 50 ML IV SCH ×3 (00:05→16:09)
[2017-01-22] MEDS: Vancomycin 250 mg Oral Capsule PO SCH ×4 (00:05→17:35)
[2017-01-22] MEDS: Ondansetron 2 mg/mL 2 mL Inj IVPUSH PRN ×2 (01:27→20:51)
--- NOTE | 2017-01-22 03:56 | NUR ---
pressor weaned, skin pt a/o times three, rex, pt expresses that she does not like to be turned, nursing staff explained to pt that turning is to help prevent bedsores and that her skin in already breaking down, pt begrudgingly agrees to turning side to side/q2hrs, pt very vocal on exactly what she wants, pt's deepali area more reddened than last night, nystatin powder applied diligently to abd folds, and barrier cream applied to buttocks, two sml areas on buttocks noted for skin breakdown, pt checked frequently for inc stools, medium greenish liquid stool at 2000, very small liquid stool noted at 2330, continue monitoring, right leg wrap intact from below knee to toes, toes warm with good sensation, left leg edema noted, non pitting edema noted to upper legs, pitting edema noted to hips and lateral abd areas, zofran given for c/o nausea but not emesis, effective, bt present, abd sml 3 incisions wnl, gera po meds with clear liquid well, pain meds effective for any abd incisional pain, right ij intact, norepi gtt weaned off at approx mn, map >=65 with pt asleep, ivf per orders, cvp=14-15, f/c with gaudencio uop, tele- sr, pac's, hr occ up to 120's, see rhythm strips, see ccu flow sheet plan:monitor bp's,
[2017-01-22 04:00] VITALS: BP 94/54; PULSE 88; RESP 12; O2SAT 99
[2017-01-22] MEDS: metroNIDAZOLE Inj 500 MG in IV Premix 1 EACH IV SCH ×3 (04:19→19:57)
[2017-01-22] MEDS: Albumin 25% 100 ML IV SCH ×2 (04:19→12:14)
[2017-01-22] MEDS: Dextrose 5% Lactated Ringer's 1,000 ML IV SCH ×2 (05:40→16:04)
[2017-01-22 08:00] VITALS: BP 101/61; PULSE 96; RESP 18; O2SAT 94
[2017-01-22] MEDS: Pantoprazole 4 mg/mL 10 mL Inj IVPUSH SCH (08:55)
[2017-01-22] MEDS: oxyCODONE ER 10 mg ER12 Tablet PO SCH ×2 (08:56→20:51)
[2017-01-22] MEDS: Nystatin 100,000 Unit/Gm 15 Gm Powder TOPICAL SCH ×2 (08:56→20:34)
[2017-01-22 09:39] LABS: BASOPHILS % (AUTO) 0.2 % (0-3); EOSINOPHILS % (AUTO) 1.7 % (0-5); MONOCYTES % (AUTO) 10.1 % (4-12); Mean Corpuscular Volume 89.3 fL (81-100); NEUTROPHILS % (AUTO) 77.2 % (40-74); Platelet Count 324 bil/L (150-400)
--- NOTE | 2017-01-22 10:13 | PROG NOTE ---
[address] [address] PROGRESS NOTE PATIENT: OSMAN WOLFE : 1950 MR#: [id number] ADMIT: 01/10/2017 JOB ID: [id number] DATE: 01/22/2017 PROBLEMS: 1. C. difficile enterocolitis. 2. Hypertension. 3. Sacral decubitus, right upper tibial area, stage 2, present on admission. 4. Right leg wound, cellulitis, ongoing problem. 5. Neuropathy. SUBJECTIVE: Breathing relatively comfortable. Some mild abdominal pain, mostly in the left upper quadrant. Having some diarrhea but this apparently is slowing down in frequency. Also starting to thicken up a bit with some being formed. No pleuritic pain. No leg pain. States the wound on her right leg is healing nicely. OBJECTIVE: Temperature 36.6, with last elevated temp of 37.5 about 36 hours ago. Pulse 80-103, respiratory rate 14, blood pressure 121/51 off norepinephrine for the past 8 hours. O2 sat on 2 L of oxygen is 95%. General appearance: A bit tired, but answers questions appropriately. Wakes up easily to voice. Eyes: Conjunctivae are pink. Mouth seems a bit reddened. I cannot visualize the mouth well as light not available. Neck is supple. Chest: Good breath sounds on the right. Essentially absent breath sounds in the lower half of the left lung. Upper left lung has some inspiratory crackles. Heart: Rapid rate. Somewhat irregular rhythm. Monitor shows a sinus mechanism with occasional atrial aberrant beats, some seem escaped beats. Heart tones seem normal. Abdomen is soft. Mildly distended. Some mild left upper quadrant tenderness. No bowel tones noted. Extremities: Right lower extremity wrapped. Left lower extremity showing chronic stasis changes, some edematous changes, some scaling of the overlying skin. IV site in the left antecubital area shows no evidence of phlebothrombosis or thrombophlebitis. Small red patch over the distal ulnar area is thought to be due to her wrist band, which has been removed. LABORATORY: Laboratory shows a serology for fungal antibodies pending. IMPRESSION: 1. Clostridium difficile enterocolitis. The patient was recently changed to oral vancomycin, receiving q.6 h. IV metronidazole has been continued. Broad-spectrum antibiotics changed to meropenem, and fidaxomicin continued. The patient also receiving pantoprazole. Switch from IV metronidazole to oral vancomycin will hopefully be helpful. Continuing on with the fidaxomicin. Would consider discontinuing the pantoprazole and, if stress ulcer prophylaxis is felt indicated, would consider H2 blockers low dose. 2. Decreased breath sounds on the left. Will review chest x-rays. Will likely need another chest x-ray today. It sounds like there has been progression of infectious process. She is coughing up a small amount of phlegm, though swallowing it. Will get cultures. 3. Cellulitis. Presumably better. Will check with other examiners about the decubitus and ulcers. 4. Concern about spontaneous bacterial peritonitis (SBP). All the cultures and data have suggested there is no evidence for SBP. Broad-spectrum antibiotics may be covered for that or possibly a pulmonary infection. PLAN: 1. Chest x-ray. 2. Consider discontinuing pantoprazole and using Pepcid if felt necessary.
--- NOTE | 2017-01-22 10:28 | NUR ---
Wound Care Patient seen at bedside, wounds at right lower leg and buttocks persist but in no way appear infected. Right anterior lower leg wound measures 13 cm L x 5 cm W x flush. Right posterior lower leg wound measures 2 cm L x 1 cm W x flush. Both wounds are 99% granular without induration or erythema, wounds continue to drain greenish tinged exudate moderately. Wounds are cleaned of biofilm with gauze mechanically then redressed with xeroform gauze, abd pads and kerlix wrap. Bilateral buttock stage 2 PU's are approximately 1.5 cms in diameter each, these continue to be treated with clear criticaid skin barrier as pt is with loose stools and foam dressings would be regularly soiled at this point. Apparently per nursing patient is reluctant to turn, this should be encouraged. Next dressing change at right lower leg by nursing 01/24/17.
[2017-01-22 12:00] VITALS: BP 105/61; PULSE 95; O2SAT 99
[2017-01-22] MEDS ORDERED: Potassium Chloride 40 mEq/100 mL Premix IV ONE (12:04)
--- NOTE | 2017-01-22 12:12 | PCM.PNSURG ---
Subjective Date of Service: Jan 22, 2017 Date of Service: Jan 22, 2017 Visit Information: Reason for Visit: Postop visit Surgery: Diagnostic laparoscopy, lysis of adhesions, open repair of umbilical hernia. Post-Op Day # 1 Date of Admission: Jan 10, 2017 at 20:31 Subjective: The patient states she is very hungry and wants to know when she can eat. Denies abdominal pain, distention. Continues with diarrhea Postop General: No Complaints Gastrointestinal: No N/V, No Belching, Diarrhea Pain Management: PO Postop Activity: Other (Has not gotten out of bed since surgery. Baseline motorized scooter but can stand for short periods) Objective Vital Sign- Last 8 Hours Date Time Temp Pulse Resp B/P Pulse Ox O2 Delivery O2 Flow Rate FiO2 01/22/17 08:00 36.8 96 18 101/61 94 Nasal Cannula 1.00 Intake and Output- Last 8 Hour 01/22/17 Cumulative From/Thru 07:00 01/10/17 15:14 - 01/22/17 06:32 Intake Total 2118 ml 26692 ml Output Total 450 ml 7916 ml Balance 1668 ml 75137 ml Intake Oral 250 ml 7070 ml IV Total 1868 ml 98683 ml Output Urine Total 450 ml 7065 ml Urine/Stool Mix 1 ml Emesis 850 ml # Bowel Movements 3 50 General: Alert, Oriented X3, No Acute Distress Lungs: Coarse Heart: Regular Rate/Rhythm, Normal S1, Normal S2 Abdomen: Soft, Appropriately tender, Distended (slightly. No bowel tones) Extremities: Thigh&Calf Soft/Nontender, Other (right leg wrapped. left leg brawny changes) Neuro: Grossly Neurologically Intact Catheters: Urethral 2 Way Mendes Result Diagram: 01/22/17 0930 01/22/17 0930 Diagnostics: CXR: 01/22/17 IMPRESSION: Findings consistent with increasing bilateral bronchopneumonia, with persistent small bibasilar pleural effusions. Assessment & Plan Impression 66 yo female with ongoing C. Difficile and probable spontaneous bacterial peritonitis, incidental finding of umbilical hernia. Problems: Plan Primary Diagnosis: 1. Septic Shock: Resolved 2. Clostridium difficile enterocolitis. The patient was recently changed to oral vancomycin, receiving q.6 h. IV metronidazole has been continued. Broad-spectrum antibiotics changed to meropenem, and fidaxomicin continued. The patient also receiving pantoprazole. Switch from IV metronidazole to oral vancomycin will hopefully be helpful. Continuing on with the fidaxomicin. (Per Dr. Mehta note) 3. Cellulitis. Right lower extremity 4. Possible spontaneous bacterial peritonitis (SBP). - WBC trending down 22.4 - 14.5 - Clear diet 5. Acute Kidney Injury with Oliguria; stable 6. Hypotension: Off pressors 01/21/17 7. PNA by CXR VTE Prophylaxis: Sub-Q Heparin (Unfractionated) Resuscitation Status: Limited Interventions Emani Parker PA-C Jan 22, 2017 12:12
--- NOTE | 2017-01-22 12:24 | DRSVH ---
[facility] [address] [place] [address] Echocardiogram Report Name: OSMAN WOLFE ate: 01/22/2017 Height: 69 in Hospital Exam Location: [facility] Weight: 187 lb Gender: Female BSA: 2.0 m2 : 1950 Age: 66 yrs BP: 121/51 mm Hg Reason For Study: Hypotension Ordering Physician: HOSPITALIST [facility] Performed By: Sydni Zambrano Referring Physician: Ellie Rabago Interpretation Summary The left ventricle is normal in size. The left ventricular ejection fraction is grossly normal. Regional wall motion abnormalities cannot be excluded due to limited visualization. The right ventricle grossly appears normal in size with probable normal systolic function. The right ventricular systolic pressure is estimated at 35 mmHg assuming a right atrial pressure of 3 mm Hg. Both atria are normal in size. There is no significant valvular heart disease. The aortic root is not well visualized. The ascending aorta is at the upper limits of normal in size. There is no pericardial effusion. There is a moderate left-sided pleural effusion. Procedure: A two-dimensional transthoracic echocardiogram with color flow and Doppler was performed. The study quality was technically difficult. Comparison is made with the echocardiogram of 07/13/2016. Left Ventricle: The left ventricle is normal in size. There is normal left ventricular wall thickness. The left ventricular ejection fraction is grossly normal. Regional wall motion abnormalities cannot be excluded due to limited visualization. Diastolic function could not be accurately assessed due to contradictory data. Right Ventricle: The right ventricle grossly appears normal in size with probable normal systolic function. Atria: Both atria are normal in size. Mitral Valve: The mitral valve is grossly normal. There is no mitral regurgitation noted. Aortic Valve: The aortic valve is not well visualized. There is no aortic valve stenosis. No aortic regurgitation is present. Tricuspid Valve: The tricuspid valve is not well visualized. There is a trace or physiologic amount of tricuspid regurgitation. The right ventricular systolic pressure is estimated at 35 mmHg assuming a right atrial pressure of 3 mm Hg. Pulmonic Valve: The pulmonic valve is not well visualized. There is no significant valvular heart disease. Great Vessels: The aortic root is not well visualized. The ascending aorta is at the upper limits of normal in size. The aortic arch is normal in size. The IVC is of normal diameter and collapses greater than 50% with a sniff. This suggests a low right atrial pressure of 3 mm Hg. Pericardium/ Pleura There is no pericardial effusion. There is a moderate left-sided pleural effusion. MMode/2D Measurements & Calculations LVIDd: 3.9 cm RA long axis asc Aorta Diam LVIDs: 2.9 cm LA A2 area: 19.2 cm FS: 26.9 % LA A4 area: 20.6 cm RA area Ao Arch Diam (Prox IVSd: 0.95 cm LA length (vol) Trans): 2.4 cm LVPWd: 0.59 cm : 13.2 cm LA vol: 61.8 ml RA vol LA vol index : 31.6 ml RA : 15.8 mm2 IVC diam: 0.82 cm LV zamora. diameter/BSA LV sys. diameter/BSA RVD1 (basal) (cm/m^2): 2.0 (cm/m^2): 1.4 Doppler Measurements & Calculations Ao V2 max MV E max carlton MV E/A: 0.92 TR max carlton : 135.1 cm/sec : 106.3 cm/sec Med Peak E' Carlton : 282.0 cm/sec Ao max P.3 mmHg MV A max carlton TR max PG Ao mean P.8 mmHg : 116.0 cm/sec E/E' med: 15.2 : 31.8 mmHg LVOT Max Carlton MV P1/2t: 43.7 msecLat Peak E' Carlton : 134.1 cm/sec sev ratio: 1.00 E/E' lat: 16.5 E/e' average Pulm A Revs Dur MV A dur : 0.12 sec MV dec time: 0.15 sec MV P1/2t max carlton Ao V2 mean LV V1 max PG : 91.4 cm/sec Ao V2 VTI LV V1 VTI MVA(P1/2t): 5.0 cm2: 28.9 cm : 28.9 cm Pulm A Revs Dur - MV A Dur: -0.01 msec Reading Physician:RAHUL
--- NOTE | 2017-01-22 14:06 | DRSVH ---
PROCEDURE: X-RAY CHEST ONE VIEW, PORTABLE ([id number]) INDICATIONS: dyspnea TECHNIQUE: One view of the chest was acquired. COMPARISON: [facility], CR, XR CHEST 1VW (PORTABLE), 01/21/2017, 9:23. FINDINGS: Surgical changes and devices: Stable position right IJ CVL. Lungs and pleura: Mild edema persist and is been slight decrease in size of small right pleural effus ion and right basilar airspace opacity. Small left pleural effusion and left basilar consolidation i s unchanged. Mediastinum: Mediastinal contours appear normal. Heart size is normal. Bones and chest wall: No suspicious bony lesions. Overlying soft tissues appear unremarkable. IMPRESSION: 1. Decrease in right pleural effusion and basilar airspace opacity. 2. Small left pleural effusion and basilar consolidation unchanged. 3. Mild edema similar to prior exam. Dictated by: Luis E Coello [facility] Interpreted: Virginia Berkowitz MD on 01/22/2017 at 14:04 Transcribed by: MARSHA on 01/22/2017 at 14:05 Approved by: Virginia Berkowitz MD, PhD on 01/22/2017 at 16:35
[2017-01-22] MEDS ORDERED: Calcium GLUCO 10% (Gm) Inj 1 GM in 0.9% Sodium Chloride 50 ML IV ONE (14:35)
--- NOTE | 2017-01-22 14:49 | PCM.PNMED ---
Subjective Date of Service Jan 22, 2017 Subjective Pt states she is slowly improving. No overnight events. Was on ICU this am but was downgraded before rounds. She denies fever, chills, but does endorse continued though improved diarrhea. States her belly pain is improving. Laparotomy was performed 01/20/[address] Cortez and states that it did not present obvious signs of colitis. Opinion was that continued progression of disease was due to SBP second to resolving C-diff colitis. Exam Vital Signs Vital Sign - Last Date Time Temp Pulse Resp B/P Pulse Ox O2 Delivery O2 Flow Rate FiO2 01/22/17 12:00 36.6 95 105/61 99 Nasal Cannula 1.00 01/22/17 08:00 18 Intake and Output 01/21/17 01/21/17 01/22/17 Cumulative From/Thru 15:00 23:00 07:00 01/10/17 15:14 - 01/22/17 06:32 Intake Total 2290 ml 2118 ml 90207 ml Output Total 500 ml 450 ml 7916 ml Balance 1790 ml 1668 ml 14263 ml Intake Oral 430 ml 250 ml 7070 ml IV Total 1860 ml 1868 ml 81366 ml Output Urine Total 500 ml 450 ml 7065 ml Urine/Stool Mix 1 ml Emesis 850 ml # Bowel Movements 2 3 50 Exam Gen: Awake and alert; NAD HEENT: R IJ in place; supple Cardio: RRR no m/r/g Resp: CTA on right; left is clear but decreased breath sounds Abd: distended and mild-mod tenderness; no bowel sounds noted Ext: bandages in place on right psych: affect is a little flat neuro: intact throughout skin: wounds covered on right lower extremity IVs and Medications Medications Reviewed: Medications were reviewed in detail Lab and Diagnostics Result Diagram: 01/22/1792901/22/17 0930 Microbiology Assessment & Plan 66 year old female admitted for acute c-diff colitis with stay in the ICU x2 due to worsening of sepsis late last week. Downgraded from ICU 01/22/19. 1. Recurrent Septic shock, first from c-diff colitis and again from presumed SBP; Present on admission; resolved - The patient had recurrent hypotension postoperatively and the norepinephrine drip was resumed. - She is now off the norepinephrine - Currently stable and improving 2. Severe C. difficile Colitis: poa; Slowly improving. - CT scan on January [address] Cortez performed laparotomy without apparent colitis. White count improving - Fidaxomicin and Vanco PO - Flagyl IV - Enteric precautions - FMS recommended to patient but she refuses 3. Possible SBP vs possible pneumonia; npoa; improving - Diagnostic paracentesis revealing no organisms but a leukocytosis of 170, although this does not meet criteria; other cause could be pulmonary although that is also felt to be less likely - She continues on Meropenem for now - Repeat procalcitonin and CBC in am 4. Maggi UTI; npoa; ongoing - Pt is not symptomatic nor neutropenic - Consider treating if symptoms arise 5. Sacral decubitus ulcer, right upper tibial area decubitus ulcer, stage II, present on admission - Wound care ordered for this chronic and ongoing problem. 6. Urinary tract infection, acute. Was treated with antibiotics, had Escherichia coli 100,000 CFU's. Antibiotic course finished. Resolved. 7. Elevated troponin : Likely due to hypotension /septic shock . Patient has no angina - Follow clinically, no workup for ischemic cardiac disease at this time 8. Acute renal failure , POA. Resolved. 9. Right leg wound, stage III, present on admission. - Wound care ordered for this ongoing problem. 10. Acute metabolic encephalopathy, POA. Resolved 11. Neuropathy chronic, - Continue gabapentin - Minimize opioid use 12. Hypokalemia. Resolved 13. Hypocalcemia. Resolved 14. Metabolic acidosis , lactic acidosis.POA. Resolved. Venous thromboembolism prophylaxis: Heparin and SCD Famotidine for GI prophylaxis Disposition: Pt being transferred from [facility] as she has improved. Expect a 2-3 days before discharge VTE Prophylaxis: Sub-Q Heparin (Unfractionated) VTE Mechanical Devices: Intermittant Pneumatic CD Resuscitation Status: Limited Interventions Time spent 35 minutes Attending Statement Patient was seen and examined with house staff. Agree with all attached documentation. Juan Everett DO Jan 22, 2017 14:49 Mazin Paredes MD Jan 23, 2017 07:14
[2017-01-22 15:15] VITALS: BP 95/57; PULSE 103; RESP 18; O2SAT 92
--- NOTE | 2017-01-22 15:46 | NUR ---
spiritual care: nurse referral conversational visit. pt reflected on recent medical events, her anxiety from weekend and reports of "getting better" pt described her relief at medical news and its impact on her general hopefulness. spiritual care to follow
--- NOTE | 2017-01-22 16:00 | NUR ---
Transfer [facility] 3030 Pt arrived on [facility] transferred from 2nd floor 2014, all belongings and meds from drawer arrived with pt. Pt is A&Ox3, on RA, multiple IV infusions running into 3 way IJ. Pt reports no pain or SOB, resting comfortably in bed. Care continues
[2017-01-22] MEDS: Famotidine Inj 20 MG in IV Premix 1 EACH IV SCH (19:57)
[2017-01-22] MEDS ORDERED: Albumin 25% 12.5 Gm 50 mL IV SCH (20:09)
[2017-01-22] MEDS: Albumin 25% 25 GM in IV Premix 1 EACH IV SCH (20:34)
[2017-01-22 20:47] VITALS: BP 106/71; PULSE 103; RESP 18; O2SAT 94
[2017-01-22] MEDS ORDERED: 0.9% Sodium Chloride 250 ML ONE (20:47)
[2017-01-23] MEDS: Heparin 5,000 Unit/mL Inj SUBQ SCH ×3 (00:22→17:19)
[2017-01-23] MEDS: Vancomycin 250 mg Oral Capsule PO SCH ×4 (00:22→17:19)
[2017-01-23] MEDS: Meropenem Inj 1,000 MG in 0.9% Sodium Chloride 50 ML IV SCH ×3 (00:22→17:21)
[2017-01-23 00:27] VITALS: BP 112/60; PULSE 103; RESP 18; O2SAT 90
[2017-01-23] MEDS: Dextrose 5% Lactated Ringer's 1,000 ML IV SCH ×4 (01:10→23:15)
[2017-01-23] MEDS: metroNIDAZOLE Inj 500 MG in IV Premix 1 EACH IV SCH (04:38)
[2017-01-23] MEDS: Albumin 25% 25 GM in IV Premix 1 EACH IV SCH ×3 (04:38→21:18)
--- NOTE | 2017-01-23 04:49 | NUR ---
Uneventful Night: Pt had an uneventful night, scheduled pain med given, pt c/o mild back pain. Pt on 1L O2 during sleep, pt noted to be 90% and mouth breathing, O2 increased to 2L while sleeping; effective. Replaced standard bed with P500 due to open sores on buttock and pt not turning independently. Q2 turns most of the night, pt will refuse at times. Pt slept most of the night, pleasant and cooperative with care.
[2017-01-23 06:44] VITALS: BP 122/75; PULSE 91; RESP 18; O2SAT 95
[2017-01-23 07:46] LABS: BASOPHILS % (AUTO) 0.4 % (0-3); EOSINOPHILS % (AUTO) 3.4 % (0-5); MONOCYTES % (AUTO) 12.8 % (4-12); Mean Corpuscular Hemoglobin 29.7 pg (27.0-35.0); Mean Corpuscular Volume 90.2 fL (81-100); NEUTROPHILS % (AUTO) 71.5 % (40-74); Platelet Count 329 bil/L (150-400)
[2017-01-23] MEDS: oxyCODONE ER 10 mg ER12 Tablet PO SCH ×2 (09:19→21:19)
[2017-01-23] MEDS: Famotidine Inj 20 MG in IV Premix 1 EACH IV SCH (09:19)
[2017-01-23] MEDS: Nystatin 100,000 Unit/Gm 15 Gm Powder TOPICAL SCH ×2 (09:21→21:19)
[2017-01-23] MEDS ORDERED: 0.9% Sodium Chloride 250 ML ONE (09:29)
[2017-01-23 09:51] VITALS: BP 104/73; PULSE 116; RESP 16; O2SAT 96
--- NOTE | 2017-01-23 10:01 | PCM.PNSURG ---
Subjective Date of Service: Jan 23, 2017 Date of Service: Jan 23, 2017 Visit Information: Reason for Visit Sepsis Surgery/Surgery Date Post-Op Day # Date of Admission: Jan 10, 2017 at 20:31 Hospital Day # Subjective: Patient is seen in surgical follow-up, she is POD#3 s/p diagnostic laparoscopy, lysis of adhesions, open repair of umbilical hernia for recalcitrant Clostridium difficile colitis with need for surgical intervention but no colitis was noted. It was thought that her symptoms could be secondary to probable spontaneous bacterial peritonitis. She also had an incidental finding of umbilical hernia, which was primarily repaired. Today patient denies any significant abdominal pain; reports some abdominal soreness around her incision/ port sites. She denies nausea/vomiting but continues with diarrhea. The diarrhea possibly slightly decreased, she had 5 stools yesterday and two thus far today. She continues with productive phlegmy cough. She is tolerating her current diet. No new symptoms overnight. Her nurse reports that she was complaining about abdominal distention, however when I question the patient she reports that she has her usual baseline abdominal distention and denies any symptoms secondary to it. She is currently not on diuretic and usually takes Lasix. Gastrointestinal: Tolerating Oral Feedings, Diarrhea Pain Management: Good Pain Control Objective Objective Chronically ill-appearing woman, laying in her hospital bed, conversive Vital Sign- Last 8 Hours Date Time Temp Pulse Resp B/P Pulse Ox O2 Delivery O2 Flow Rate FiO2 01/23/17 06:44 36.2 91 18 122/75 95 Nasal Cannula 2.00 Intake and Output- Last 8 Hour 01/23/17 Cumulative From/Thru 07:00 01/10/17 15:14 - 01/23/17 06:46 Intake Total 1610 ml 28371 ml Output Total 8391 ml Balance 1610 ml 28660 ml Intake Oral 7170 ml IV Total 1610 ml 48825 ml Output Urine Total 7540 ml Urine/Stool Mix 1 ml Emesis 850 ml # Bowel Movements 52 General: Alert, Oriented X3, Cooperative, No Acute Distress Lungs: Coarse, Rhonchorus Heart: Other (reg rhythm but slightly tachy at 100-110) Abdomen: Soft, Appropriately tender (around umbilical port site/umbilical hernia repair site), Protuberant, Normoactive bowel tones, Ascites, Other ( fluid wave present) SURGICAL WOUND : Wound Location/Description Periumbilical hernia site and 2 surgical port sites are examined, initial surgical dressings are in place there is no drainage around them were on Telfa Wound General Appearence: No Erythema, No Inflammatory Changes, Wound under dressing (periwound seen clearly over telfa/op site dressing) Dressing & Drainage Status: Intact Extremities: Other (3+ pitting edema above her right lower extremity dressing, pitting edema of left as well but no dressing to demarcate; wound care to change dsg tomorrow) Neuro: Grossly Neurologically Intact Result Diagram: 01/23/1772901/23/17729 Additional Information: sacral decub not examined Assessment & Plan Impression 66-year-old female with multiple chronic medical problems including cirrhosis with h/o ascites, history of lupus-details unknown, peripheral neuropathy, ongoing tobacco use and history of "COPD", history of stroke and recent lower extremity cellulitis status post debridement being followed at [facility], who was initially hospitalized 2 weeks ago with probable colitis with associated septic shock, over the weekend her symptoms worsened including increasing pain, increasing white blood cell count and a CT scan that was consistent with possible toxic megacolon, a bedside paracentesis was equivocal and it was felt that she needed to be brought to the operating room for possible subtotal colectomy with diverting loop ileostomy. However, in the operating room, there was no significant colitis found and her symptoms were felt to be secondary to SBP, and 3600mL fluid was drained . However, cultutres so far are not c/w SBP. There was an umbilical hernia that was found that was primarily repaired without mesh. Currently, she seems to be improving with improved white blood cell count down to 11,200 today, minimal abdominal pain and no leakage of fluid around her surgical sites yet she continues with diarrhea secondary to her Clostridium difficile enterocolitis. Problems: Plan 1. Septic shock-improved, discharge from the ICU yesterday 2. Recalcitrant C. difficile-continue current therapy, symptoms somewhat improving, no evidence of colitis at time of laparoscopy, 01/20/17 3. SBP-cultures all negative at this point, therefore unlikely diagnosis 4. History of cirrhosis with ascites-she is not currently on her at home diuretic; abdominal distention per patient is at baseline 5. Sacral decubitus 2-followed by wound care 6. Right lower extremity cellulitis, under dressing-followed by wound care. I would try to coordinate with wound care to examine cellulitis and sacral decub tomorrow at the time of dressing change. 7. Cough-chest x-ray yesterday appeared improved, could be chronic 8. UTI-resolved Pain Management: oxycodone VTE Prophylaxis: Sub-Q Heparin (Unfractionated) Resuscitation Status: Limited Interventions Rita Wu PAC Jan 23, 2017 10:00
--- NOTE | 2017-01-23 10:02 | NUR ---
Social Work-continued d/c planning: Data:EMR reviewed. Pt is on day 13 of hospitalization for sepsis per H&P. Pt is not medically stable, anticipate several more days of hospitalization. PT continues to work with pt and recommend SNF. Pt has been accepted at [facility]. to have ID consult today. Pt also is being followed by wound care. Paperwork has been placed in the chart. SW will continue to follow. Assessment:Pt who would benefit from SNF. Plan:Pt to discharge to [facility] when medically stable. Paperwork has been placed in the chart. SW will continue to follow. JAMA Barillas
[2017-01-23 13:36] VITALS: BP 102/45; PULSE 103; RESP 18; O2SAT 99
--- NOTE | 2017-01-23 15:37 | NUR ---
NUTRITION FOLLOW UP ASSESS: 66 YO F admitted with septic shock and severe C. diff colitis, and spontaneous bacterial peritonitis s/p paracentesis. Pt is s/p laparotomy with lysis of adhesions and open repair of umbilical hernia. Pt with poor po intake now x 13 days. PMHx: Arthritis, COPD, CVA, Pneumonia, Lupus, TIA, anemia, osteoporosis, GERD, Tubal ligation, carpal tunnel, left hip repair. LABS: Reviewed. Alb 3.4 MEDS:Reviewed. GI:BM x 2 today. SKIN: Stage II PU's on sacrum and buttocks; PU on right upper calf per WC. WT: 89.4 kg (wt gain likely fluid related), BMI: 27.0 kg/m2, Admit Wt: 62.5 kg Previous Admit (12/16/16): 77.5 kg, IBW: 65.9 kg DIET: General. Very poor po intake x 13 days. ESTIMATED NEEDS: COPD, wound Calorie: 8216-2157 kcal/day (30-40 kcal/kg BW) Protein: 80-120 g/day (1.2-1.8 g/kg BW) NUTRITION DIAGNOSIS: 1) Increased nutrient needs related to wound healing and chronic illnesses as evidenced by ongoing treatment for wound on right leg, COPD and GI surgery - PERSISTS. 2) Inadequate oral intake related to GI upset as evidenced by C. Diff positive and minimal PO intake x 13 days - PERSISTS. NUTRITION INTERVENTION: 1) Continue Impact Advance Recovery on all trays. 2) Strongly recommend nutrition support if consistent with pt plan of care as pt has been without adequate nutrition now x 13 days. MONITOR/EVALUATE: Diet advance / tolerance, PO intake, wt, GI, wounds, labs, nutrition status, POC. Follow per high nutrition risk guidelines. Addendum: 01/25/17 at [address] Per RN, pt does not like the meals here, but pt has been eating a lot of snacks like cracker, milk, and seven up. RN states that because pt is eating snacks rather than the meals that her po intake is not being reported. RN will try to have snack intake reported so RD can better assess pt po intake. Continue to monitor.
--- NOTE | 2017-01-23 16:31 | PCM.PNMED ---
Subjective Date of Service Jan 23, 2017 Subjective complains of generalized malaise and body aches. Exam Vital Signs Vital Sign - Last Date Time Temp Pulse Resp B/P Pulse Ox O2 Delivery O2 Flow Rate FiO2 01/23/17 13:36 36.4 103 18 102/45 99 Nasal Cannula 2.00 Intake and Output 01/22/17 01/22/17 01/23/17 Cumulative From/Thru 15:00 23:00 07:00 01/10/17 15:14 - 01/23/17 06:46 Intake Total 1650 ml 1610 ml 36177 ml Output Total 475 ml 8391 ml Balance 1175 ml 1610 ml 64315 ml Intake Oral 100 ml 7170 ml IV Total 1550 ml 1610 ml 49518 ml Output Urine Total 475 ml 7540 ml Urine/Stool Mix 1 ml Emesis 850 ml # Bowel Movements 2 52 General: Alert, Cooperative, No Acute Distress Eyes: Scleral Anicteric Nose: Mucous Membr Moist/[place] Mouth: Mucous Membr Moist/[place] Neck: Supple Chest & Lungs: Chest Wall Normal, Clear to auscultation & percussion Cardiovascular: Regular Rate/Rhythm Abdomen: Tender (mild diffuse), Distended, Normoactive bowel tones, Soft Extremities: Other (bilat LE edema with dressing of LE bilat) Neurological: Grossly Neurologically Intact, Normal Speech IVs and Medications Medications Reviewed: Medications were reviewed in detail Lab and Diagnostics Result Diagram: 01/23/17 0730 01/23/17 0730 Microbiology Assessment & Plan 66 year old female admitted for acute c-diff colitis with stay in the ICU x2 due to worsening of sepsis late last week. Downgraded from ICU 01/22/19. # Recurrent Septic shock, first from c-diff colitis and again from presumed SBP ; Present on admission; resolved - The patient had recurrent hypotension postoperatively and the norepinephrine drip was resumed. - She is now off the norepinephrine since 01/22 - Currently improving # Severe acute C. difficile Colitis: poa; Slowly improving. - CT scan on January 17 indicated toxic megacolon. - appreciate surgery consult. will f/u w/ recs. Dr. Cortez performed laparotomy without apparent colitis. - Fidaxomicin and Vanco PO - Flagyl IV - Enteric precautions - ID consulted today. will f/u w/ recs # Possible SBP vs possible pneumonia; npoa; improving - Diagnostic paracentesis revealing no organisms but a leukocytosis of 170, although this does not meet criteria; other cause could be pulmonary although that is also felt to be less likely - She continues on Meropenem for now - ID consult as noted above # Maggi UTI; npoa; ongoing - Pt is not symptomatic nor neutropenic - Consider treating if symptoms arise # Sacral decubitus ulcer, right upper tibial area decubitus ulcer, stage II, present on admission - Wound care ordered for this chronic and ongoing problem. # Urinary tract infection, acute. Was treated with antibiotics, had Escherichia coli 100,000 CFU's. Antibiotic course finished. Resolved. # Elevated troponin : Likely due to hypotension /septic shock . Patient has no angina - Follow clinically, no workup for ischemic cardiac disease at this time # Acute renal failure , POA. Resolved. # Right leg wound, stage III, present on admission. - Wound care ordered for this ongoing problem. # Acute metabolic encephalopathy, POA. Resolved # Neuropathy chronic, - Continue gabapentin - Minimize opioid use # Acute Hypokalemia. Resolved # Acute Hypocalcemia. poa. ongoing - replete and f/u # Metabolic acidosis , lactic acidosis.POA. Resolved. Dispo: 2-4 days VTE Prophylaxis: Sub-Q Heparin (Unfractionated) VTE Mechanical Devices: Intermittant Pneumatic CD Resuscitation Status: Limited Interventions Time spent 35 min Fco Bush Jan 23, 2017 16:31
--- NOTE | 2017-01-23 19:26 | PROG NOTE ---
[address] [address] PROGRESS NOTE PATIENT: OSMAN WOLFE : 1950 MR#: [id number] ADMIT: 01/10/2017 JOB ID: [id number] DATE: 01/23/2017 INFECTIOUS DISEASE FOLLOWUP NOTE: REASON FOR FOLLOWUP: Severe C. difficile colitis. INTERVAL HISTORY: The patient is a complex 66-year-old woman well known to me from earlier in this hospital stay. I saw her back on January 11 just prior to leaving on 10 days of vacation. At that time had just been admitted to the ICU with C. difficile colitis. This followed her admission back in November when she had an extremely severe abscess of her right lower extremity and was treated with many antibiotics including clindamycin with a tremendous improvement. In any event, she was readmitted in late December with fulminant C. diff, septic shock, and little evidence for any other infectious process. The plan at that point was to get her started on fidaxomicin for C. diff and to continue briefly with broad-spectrum antibiotics while we attempted to rule out the possibility of infection from another site. Subsequent to that admission on January 10 or so, the patient was in fact proven to have C. diff by PCR. Over the past 10 days, though a wide variety of antibiotic agents have been employed. IV Flagyl was added to the fidaxomicin as an intravenous agent in addition to the oral fidaxomicin. Subsequently the patient's improvement seemed to be too slow and she developed considerable ascites as well as continued abdominal pain and eventually required paracentesis. Eventually oral vancomycin was added to the oral fidaxomicin as well as the IV Flagyl for the C. diff and broad-spectrum antibiotics were expanded rather than narrowed with the addition of meropenem as part of a package of broad-spectrum antibiotics directed against possible intra-abdominal infection above and beyond the C. difficile colitis. The patient tells us today that she has improved. She still has some degree of abdominal tenderness and is still having 2-4 loose green stools a day, but her abdominal pain is much improved as is her diarrhea since admission. She is having no fevers or chills at this point, and no significant cough, shortness of breath, chest pain, or pulmonary symptoms. No genitourinary urinary symptoms are noted either. PHYSICAL EXAMINATION: Reveals a chronically ill woman who is infinitely better than when I saw her 10 days ago. She has been completely afebrile since her admission on the . Today temp 36.4, pulse 103, respiratory rate 18, blood pressure 102/45. She is saturating well on 2 L and in no great distress. Oral cavity without thrush or pharyngitis. Mental status is relatively clear. Lungs clear to auscultation. Cardiac tones without new murmur. Abdomen is quite distended and it does appear that she has developed some degree of ascites since her admission 10 or 11 days ago. Her abdomen has diminished bowel tones and is mildly tender throughout, but again improved over when I last saw her January 11. Her right lower extremity below the knee is wrapped, but the nurses who change the dressing note that it was clean and without evidence of infection. Recall this is the site of the really extensive right lower extremity abscess back in November which led to debridements and to broad-spectrum antibiotics, which have subsequently led to the life-threatening C. difficile colitis in late December. LABORATORIES: Include white count which has declined from 25,000 or so at the time of admission, down to 11,000 today. The diff is basically normal at this point, with a mild monocytosis. Hematocrit 22, platelet count 329. The patient's creatinine is 0.36. Her LFTs are normal. Procalcitonin was 33 when she came in; it is now down to 0.2. Urinalysis had 11-50 white cells and the culture of the urine grew Maggi albicans. Blood cultures have been negative. An initial urine culture grew E. coli which has not recovered in the most recent cultures. Stool was positive for C. diff on admission. It was repeated on January 22 and was negative, though I do not think that is of much value as we know there is still likely to be some degree of C. diff present. All blood cultures from this admission have been negative. IMAGING: Includes a chest x-ray done yesterday that shows a decreasing right pleural effusion and mild pulmonary edema. An ultrasound of the abdomen was done prior to the paracentesis on January 17. Recall that this was a large volume paracentesis. Also note that we reviewed the record from the surgery that was done on January 20, when the patient underwent laparoscopy to evaluate her colon. IMPRESSION: This is a complicated case of a woman who back in November was admitted with an extensive polymicrobial infection of the right lower extremity. Following aggressive and prolonged antibiotic therapy she did well for a period of time and then developed severe C. difficile colitis with septic shock which landed her in the intensive care unit on or about January 10. She has improved dramatically since that time, but has developed large volume ascites which required paracentesis, and there have been questions raised about whether she might have SBP. Note that her paracentesis fluid though had only 175 white cells and that less than 100 of these were polys, as most were lymphocytes and monocytes, and this would be inconsistent with SBP. The most parsimonious way to put this complicated case together is that she developed C. difficile colitis with associated ascitic fluid in late December and that she is now recovering from that. It is unclear to me if she has any ongoing bacterial infection as she has no fever, her white count is nearly normal, and her procalcitonin has completely normalized to 0.2. RECOMMENDATIONS: 1. The patient has now completed 13 days of fidaxomicin, which is an extraordinarily long course of this antimicrobial, so we will go ahead and stop that as of tomorrow when we have completed two full weeks. 2. The patient has received almost two weeks of Flagyl as well and, given that her C. difficile is much improved, I think we can go ahead and reasonably stop that at this point. 3. There is nothing in the literature that suggests an added benefit of giving oral vancomycin in addition to fidaxomicin, which is probably a superior agent anyway, so will go ahead and stop the oral vancomycin at this time. 4. We will go ahead and stop the meropenem as I am not certain exactly what we are treating, given that we have no proof of SBP, and this will simply make her C. diff worse. 5. We will continue to closely watch this patient with you going forward. 6. We are going to stop the oral flagyl as well. 7. We will continue to watch this patient closely with you going forward. EHSAN
[2017-01-23 20:13] VITALS: BP 105/63; PULSE 91; RESP 16; O2SAT 96
[2017-01-24] VITALS (8 sets, daily range): BP systolic 100–122; BP diastolic 58–79; PULSE 83–113; RESP 16–18; O2SAT 92–98
[2017-01-24] MEDS: Heparin 5,000 Unit/mL Inj SUBQ SCH ×3 (00:30→15:39)
--- NOTE | 2017-01-24 01:32 | NUR ---
Edema: Pt edematous from abdomen to feet, RN noted fluid retention significantly increased from previous night. Abdomen is distended and firm, pt having some difficulty with breathing when supine and flat from the pressure of abdomen.
[2017-01-24] MEDS: Albumin 25% 25 GM in IV Premix 1 EACH IV SCH ×2 (05:05→13:19)
[2017-01-24 06:17] LABS: Mean Corpuscular Hemoglobin 28.8 pg (27.0-35.0); Mean Corpuscular Volume 90.9 fL (81-100)
[2017-01-24 06:27] LABS: Magnesium 1.5 mg/dL (1.6-2.6)
--- NOTE | 2017-01-24 06:38 | NUR ---
Diarrhea/NOC shift: Pt continues to have diarrhea. Please read above note regarding increasing edema and SOB. Pt slept most of the night, pleasant and cooperative with care.
[2017-01-24] MEDS: oxyCODONE ER 10 mg ER12 Tablet PO SCH ×2 (08:56→20:15)
[2017-01-24] MEDS: Dextrose 5% Lactated Ringer's 1,000 ML IV SCH ×2 (08:58→14:06)
[2017-01-24] MEDS ORDERED: Magnesium Sulf 4 Gm/100 mL H2O 4 GM in IV Premix 1 EACH IV ONE ×2 (09:00→13:30)
[2017-01-24] MEDS ORDERED: Furosemide 10 mg/mL 4 mL Inj IVPUSH ONE ×2 (09:00→19:00)
[2017-01-24] MEDS ORDERED: KCl 40 mEq/D5W 500 mL 40 MEQ in IV Premix 500 EACH IV ONE (09:00)
--- NOTE | 2017-01-24 11:00 | NUR ---
HR call recd from tele re pts HR- SR 1-teens/twenties. Pt assessed, manual HR taken. Pt asymptomatic. Was in bed eating. Dr Bush notified. Will continue to monitor. Bed in low position, upper 2 rails up, call light in reach.
--- NOTE | 2017-01-24 11:02 | NUR ---
Social Work-readiness for discharge: Data:EMR reviewed. Pt is on day 14 of hospitalization for sepsis per H&P. Pt is not medically stable, anticipate 1-2 more days of hospitalization. PT continues to work with pt and recommend SNF. Pt has been accepted at [facility]. to have ID is following pt. Pt also is being followed by wound care. Paperwork has been placed in the chart. SW will continue to follow. Assessment:Pt who would benefit from SNF. Plan:Pt to discharge to [facility] when medically stable. Paperwork has been placed in the chart. SW will continue to follow. JAMA Barillas
--- NOTE | 2017-01-24 11:20 | PROG NOTE ---
[address] [address] PROGRESS NOTE PATIENT: OSMAN WOLFE : 1950 MR#: [id number] ADMIT: 01/10/2017 JOB ID: [id number] DATE: 01/24/2017 INFECTIOUS DISEASE FOLLOWUP NOTE: REASON FOR FOLLOWUP: Severe life-threatening C. difficile colitis as a sequelae of antibiotic treatment for a severe polymicrobial right leg abscess. INTERVAL HISTORY: Yesterday we stopped essentially all the patient's drugs and this morning she finished her last antibiotic, which was the 14th day of fidaxomicin. The patient reports that, if anything, her diarrhea is a little better overnight though she continues to have some small volume loose stools. She has no fevers, chills, or sweats. She does note some shortness of breath and still some swelling of the abdomen, as well as profound swelling of the lower extremities. We discussed this case at the bedside with Dr. Bush the hospitalist. PHYSICAL EXAMINATION: Reveals an afebrile woman temp 36.9, pulse 95, respiratory rate 18, blood pressure 122/79, saturating 92% on 2 L. The patient is awake and alert. She appears mildly short of breath, though her respiratory rate and O2 sat are reasonable. Oral cavity negative. Lungs with some crackles at the bases bilaterally. I did not hear any gallop rhythms, no S3 or S4 are heard. Her abdomen remains somewhat distended and may, in fact, have some ascites as well as pitting edema. Lower extremities have a great deal of edema. The right lower extremity below the knee is wrapped as that is the area where she has her open wound following debridement of her large right lower extremity abscess. LABORATORIES: Include white count which has now dropped all the way to normal 9400, platelet count 320,000, creatinine 0.35, LFTs are normal. Procalcitonin 0.2. Fungitell has come back negative. Micro studies include urine which grew Maggi albicans. The repeat stool for C. diff is negative following the initial positive when she presented with septic shock. IMPRESSION: We have vigorously treated the septic shock in this patient with life-threatening Clostridium difficile and she seems dramatically better. We have also gone ahead and stopped her other antibiotics which included her broad-spectrum meropenem as I see no evidence for any other ongoing infection at this point. One of her problems at this point is dramatic fluid overload, as she has fluid it would sound like in her lungs, as well as anasarca on physical exam, and this is in part related to her two recent critical illness and the great deal of IV fluids she received when she was in shock. Even though her stool for Clostridium difficile has turned negative by PCR, we cannot stop isolation as there is likely still be some spores present, and we have no way of ensuring that she is completely noninfectious, so she should be kept in isolation. RECOMMENDATIONS: 1. Will reinstitute Clostridium difficile precautions. 2. The fidaxomicin finished this morning and at this point I think she should be observed off antibiotics. 3. Efforts to improve her respiratory status and functional status are certainly needed. 4. We will continue to closely follow this patient with you.
[2017-01-24] MEDS: Nystatin 100,000 Unit/Gm 15 Gm Powder TOPICAL SCH ×2 (11:35→20:15)
--- NOTE | 2017-01-24 11:46 | PCM.PNSURG ---
Subjective Date of Service: Jan 24, 2017 Date of Service: Jan 24, 2017 Visit Information: Reason for Visit: Postop visit Surgery: Diagnostic laparoscopy, lysis of adhesions, open repair of umbilical hernia. Surgery Date: 01/20/17 Post-Op Day # 4 Date of Admission: Jan 10, 2017 at 20:31 Subjective: The patient is sitting up in bed in no acute distress, she does state it is difficult to cough up phlegm due to her abdomen pressing up against her diaphragm. She is tolerating her current diet. She denies any N/V, but is experiencing intermittent heartburn. She continues with loose stool although the quantity is decreasing. She is concerned about the swelling in her legs and how much bigger they gotten overnight. Gastrointestinal: Tolerating Oral Feedings, No N/V, Passing Stool, Diarrhea Pain Management: PO (oxycodone 10 mg 2 times a day) Neurological: Weakness (generalized lower extremities), Numbness (lower extremities right greater than left) Postop Activity: Other (currently not ambulating secondary to lower extremity swelling. Baseline she uses a scooter) Objective Vital Sign- Last 8 Hours Date Time Temp Pulse Resp B/P Pulse Ox O2 Delivery O2 Flow Rate FiO2 01/24/17 09:35 36.9 98 18 122/79 92 Nasal Cannula 2.00 01/24/17 05:24 36.8 95 16 104/68 98 Nasal Cannula 2.00 01/24/17 04:15 94 Intake and Output- Last 8 Hour 01/24/17 Cumulative From/Thru 07:00 01/10/17 15:14 - 01/24/17 05:06 Intake Total 1447 ml 52812 ml Output Total 9441 ml Balance 1447 ml 85303 ml Intake Oral 7306 ml IV Total 1447 ml 54637 ml Output Urine Total 8590 ml Urine/Stool Mix 1 ml Emesis 850 ml # Bowel Movements 56 General: Alert, Oriented X3 Lungs: Coarse (right greater than left) Heart: Regular Rate/Rhythm, No Murmurs/Rubs/Gallops Abdomen: Appropriately tender (over incisions), Distended, Normoactive bowel tones SURGICAL WOUND : Wound General Appearence: Steri Strips, Intact, No Erythema, No Discharge Dressing & Drainage Status: Intact Extremities: Warm, Anasarca (bilateral lower extremities) Neuro: Grossly Neurologically Intact Catheters: Urethral 2 Way Mendes Result Diagram: 01/24/17 0550 01/24/17 0550 Assessment & Plan Impression 66-year-old female with multiple chronic medical problems including cirrhosis with h/o ascites, history of lupus-details unknown, peripheral neuropathy, ongoing tobacco use and history of "COPD", history of stroke and recent lower extremity cellulitis status post debridement being followed at [facility], who was initially hospitalized 2 weeks ago with probable colitis with associated septic shock, over the weekend her symptoms worsened including increasing pain, increasing white blood cell count and a CT scan that was consistent with possible toxic megacolon, a bedside paracentesis was equivocal and it was felt that she needed to be brought to the operating room for possible subtotal colectomy with diverting loop ileostomy. However, in the operating room, there was no significant colitis found and her symptoms were felt to be secondary to Spontaneous Bacterial Peritonitis, and 3600mL fluid was drained . However, cultures so far are not c/w SBP. There was an umbilical hernia that was found and primarily repaired without mesh. Currently, she seems to be improving with white blood cell count normal at 9.4 today, minimal abdominal pain and no leakage of fluid around her surgical sites yet she continues with diarrhea secondary to her Clostridium difficile enterocolitis and abdominal distention Primary Diagnosis: 1. Septic Shock; Acute Metabolic Encephalopathy; Metabolic acidosis. Resolved 2. Severe Clostridium difficile enterocolitis. The patient finished 14 days of ABX, now currently only on Fidaxomicin 200 mg bid. Repeat C-diff PCR is negative. Continue with enteric precautions 3. Possible spontaneous bacterial peritonitis (SBP). 4. Sacral decubitus Stage II. Followed by wound care 5. Cellulitis. Right lower extremity. Followed by wound care 6. Acute Kidney Injury with Oliguria; stable 7. UTI's; E. Coli and Maggi; both treated with ABX 8. Hypotension: Off pressors 01/21/17 Problems: Plan Continue with Respiratory therapy, Wound care, and Physical Therapy for several more days then transfer to [facility] in [place] when medically stable Pain Management: PO Oxycontin VTE Prophylaxis: Sub-Q Heparin (Unfractionated) Resuscitation Status: Limited Interventions Emani Parker PA-C Jan 24, 2017 11:46
--- NOTE | 2017-01-24 12:42 | DRSVH ---
PROCEDURE: X-RAY CHEST ONE VIEW, PORTABLE ([id number]) INDICATIONS: SHORTNESS OF BREATH TECHNIQUE: One view of the chest was acquired. COMPARISON: [facility], CR, XR CHEST 1VW (PORTABLE), 01/22/2017, 12:24. FINDINGS: Surgical changes and devices: Stable position of right IJ CVL. Lungs and pleura: Edema redemonstrated and small pleural effusions. There has been interval increase in airspace opacity within the mid lungs and the lung bases. No pneumothorax. Mediastinum: Mediastinal contours appear normal. Heart size is normal. Bones and chest wall: No suspicious bony lesions. Overlying soft tissues appear unremarkable. IMPRESSION: 1. Edema and increasing bilateral airspace opacifications suggestive of worsening pulmonary edema and /or pneumonia. 2. Small effusions. Dictated by: Luis E NEWELL Interpreted: Abigail Mittal MD on 01/24/2017 at 12:41 Transcribed by: NIRMALA on 01/24/2017 at 12:42 Approved by: Abigail Mittal M.D. on 01/24/2017 at 16:39
[2017-01-24] MEDS: Ondansetron 2 mg/mL 2 mL Inj IVPUSH PRN (15:35)
--- NOTE | 2017-01-24 16:03 | NUR ---
Repositioning/wound Pt strongly encouraged to allow staff with help in repositioning, LOT'S of education provided-pt agreed one time! Mepilex/joe applied to sacrum d/t 2 open/reddened areas. Wound therapy involved with R calf-site readdressed per wound orders. Pt tolerated procedure well. Bed in low position, upper rails up, call light within reach.
--- NOTE | 2017-01-24 16:09 | PCM.PNMED ---
Subjective Date of Service Jan 24, 2017 Subjective complains of generalized malaise and worsening SOB today. Exam Vital Signs Vital Sign - Last Date Time Temp Pulse Resp B/P Pulse Ox O2 Delivery O2 Flow Rate FiO2 01/24/17 12:47 101 01/24/17 09:35 36.9 18 122/79 92 Nasal Cannula 2.00 Intake and Output 01/23/17 01/23/17 01/24/17 Cumulative From/Thru 15:00 23:00 07:00 01/10/17 15:14 - 01/24/17 05:06 Intake Total 0 ml 1436 ml 1447 ml 22481 ml Output Total 600 ml 450 ml 9441 ml Balance -600 ml 986 ml 1447 ml 30618 ml Intake Oral 0 ml 136 ml 7306 ml IV Total 1300 ml 1447 ml 54795 ml Output Urine Total 600 ml 450 ml 8590 ml Urine/Stool Mix 1 ml Emesis 850 ml # Bowel Movements 2 2 56 Exam General: Alert, Cooperative, No Acute Distress Eyes: Scleral Anicteric Nose: Mucous Membr Moist/[place] Mouth: Mucous Membr Moist/[place] Neck: Supple Chest & Lungs: Chest Wall Normal, Clear to auscultation & percussion Cardiovascular: Regular Rate/Rhythm Abdomen: Tender (mild diffuse), Distended, Normoactive bowel tones, Soft Extremities: Other (bilat LE edema with dressing of LE bilat) Neurological: Grossly Neurologically Intact, Normal Speech IVs and Medications Medications Reviewed: Medications were reviewed in detail Lab and Diagnostics Result Diagram: 01/24/17 0550 01/24/17 0550 Microbiology Assessment & Plan 66 year old female admitted for acute c-diff colitis with stay in the ICU x2 due to worsening of sepsis late last week. Downgraded from ICU 01/22/19. # Recurrent Septic shock, first from c-diff colitis and again from presumed SBP ; Present on admission; resolved - The patient had recurrent hypotension postoperatively and the norepinephrine drip was resumed. - She is now off the norepinephrine since 01/22 - Currently improving # Severe acute C. difficile Colitis: poa; improved - CT scan on January 17 indicated toxic megacolon. - appreciate surgery consult. will f/u w/ recs. Dr. Cortez performed laparotomy without apparent colitis. - appreciate ID consult also. will f/u w/ recs - Fidaxomicin finished this morning. observed off antibiotics. # Dyspnea, acute on chronic. not poa. - CXR 01/24/17 showing: "Edema and increasing bilateral airspace opacifications suggestive of worsening pulmonary edema and/or pneumonia." - appreciate pulmonology consult. will f/u w/ recs - IV Lasix per pulmonology # Possible SBP vs possible pneumonia; npoa; improving - Diagnostic paracentesis revealing no organisms but a leukocytosis of 170, although this does not meet criteria; other cause could be pulmonary although that is also felt to be less likely - Stopped Meropenem on 01/23 per ID recs - unclear etiology for patient's new onset abdominal ascites. ? if 2ndry to presenting sepsis and fluid overload earlier. f/u # Acute hypokalemia and hypomagnesemia - replete and followup # Maggi UTI; npoa; ongoing - Pt is not symptomatic - Consider treating if symptoms arise # Sacral decubitus ulcer, right upper tibial area decubitus ulcer, stage II, present on admission - Wound care ordered for this chronic and ongoing problem. # Urinary tract infection, acute. Was treated with antibiotics, had Escherichia coli 100,000 CFU's. Antibiotic course finished. Resolved. # Elevated troponin : Likely due to hypotension /septic shock . Patient has no angina - Follow clinically, no workup for ischemic cardiac disease at this time # Acute renal failure , POA. Resolved. # Right leg wound, stage III, present on admission. - Wound care ordered for this ongoing problem. # Acute metabolic encephalopathy, POA. Resolved # Neuropathy chronic, - Continue gabapentin - Minimize opioid use # Acute Hypokalemia. Resolved # Acute Hypocalcemia. poa. ongoing - replete and f/u # Metabolic acidosis , lactic acidosis.POA. Resolved. Dispo: Likely SNF in 2-4 days pending improved respiratory status. remaining stable off of Abx VTE Prophylaxis: Sub-Q Heparin (Unfractionated) VTE Mechanical Devices: Intermittant Pneumatic CD Resuscitation Status: Limited Interventions Time spent 35 min Fco Bush Jan 24, 2017 16:09
--- NOTE | 2017-01-24 17:21 | PCM.PNMED ---
Subjective Date of Service Jan 24, 2017 Subjective Bug Trimmer consult: Attending Dr. Kimo Mehta, consult requested by Dr. Bush Infectious disease was also consulted on this case and subsequently stopped all patient's antibiotics as she had received 2 week course of most. She states that her diarrhea had somewhat improved however she developed shortness of breath overnight with profound swelling of her lower extremities extending up into her abdomen. Patient was receiving 125 mL fluid throughout the evening and had minimal urine output. Exam Vital Signs Vital Sign - Last Date Time Temp Pulse Resp B/P Pulse Ox O2 Delivery O2 Flow Rate FiO2 01/24/17 12:47 101 01/24/17 09:35 36.9 18 122/79 92 Nasal Cannula 2.00 Intake and Output 01/23/17 01/23/17 01/24/17 Cumulative From/Thru 15:00 23:00 07:00 01/10/17 15:14 - 01/24/17 05:06 Intake Total 0 ml 1436 ml 1447 ml 35584 ml Output Total 600 ml 450 ml 9441 ml Balance -600 ml 986 ml 1447 ml 58239 ml Intake Oral 0 ml 136 ml 7306 ml IV Total 1300 ml 1447 ml 40307 ml Output Urine Total 600 ml 450 ml 8590 ml Urine/Stool Mix 1 ml Emesis 850 ml # Bowel Movements 2 2 56 Exam General: Mild distress. Sitting up in bed awake and alert and appropriately interactive HEENT: Normocephalic, atraumatic. External ears without defect. Pupils equal, round, and reactive to light and accommodation. Neck: Supple with full range of motion. No jugular venous distension. Cardiovascular: Regular rate and rhythm with no murmurs, rubs, or gallops appreciated Pulmonary: Crackles heard in the lower lung buckner bilaterally bilaterally. Somewhat short of breath with no use of accessory muscles. Abdomen: Bowel tones present. Soft, nontender. Ascites present. No hepatosplenomegaly or masses appreciated. Extremities: No clubbing, cyanosis, significant edema extending up to the abdomen. Right lower extremity bandage in place though appears to be weeping. Skin: Normal temperature, turgor, and texture; no rash, ulcers, or subcutaneous nodules appreciated. Neurological: Cranial nerves grossly intact. Psychiatric: Normal mood and affect. Alert and oriented to person, place, and time. Lab and Diagnostics Result Diagram: 01/24/17 0550 01/24/17 0550 Microbiology Assessment & Plan 66 year old female admitted for acute c-diff colitis with stay in the ICU x2. Downgraded from ICU 01/22/19. Antibiotics discontinued after 2 week course. Pulmonology continues to fall secondary to worsening of her chest x-ray increase in edema and shortness of breath. Possible etiologies include pneumonia, SPEP, or iatrogenic. Diagnostic paracentesis showed no organisms however did show leukocytosis of 170 (while this does not meet criteria could be from a pulmonary cause). # Pulmonary edema, most likely secondary to fluid administration and decreased urinary output. - Chest x-ray showed Edema and increasing bilateral airspace opacifications suggestive of worsening pulmonary edema and/or pneumonia. - White count normalized, pro-calcitonin continues to trend down last result yesterday 0.2 from peak of 32.85 - Per ID consult all antibiotics discontinued - Stop IV fluids - 40 mg IV Lasix ordered resulting in urine output of approximately 2 L. Will continue additional 40 mg IV Lasix tonight and repeat chest x-ray in the morning. - Continue to monitor VTE Prophylaxis: Sub-Q Heparin (Unfractionated) VTE Mechanical Devices: Intermittant Pneumatic CD Resuscitation Status: Limited Interventions Attending Statement The patient was seen and examined together with Dr. Ramirez on 01/24/2017 and I agree with the history, exam and plan as outlined in the note above. LUCIA RAMIREZ DO Jan 24, 2017 13:55 Kimo Mehta MD Jan 31, 2017 11:05
[2017-01-25] VITALS (8 sets, daily range): BP systolic 100–109; BP diastolic 61–73; PULSE 74–127; RESP 16–18; O2SAT 94–96
[2017-01-25] MEDS: Heparin 5,000 Unit/mL Inj SUBQ SCH ×3 (01:28→17:02)
[2017-01-25 05:13] LABS: BASOPHILS % (AUTO) 0.4 % (0-3); MONOCYTES % (AUTO) 16.4 % (4-12); Mean Corpuscular Hemoglobin 29.1 pg (27.0-35.0); Mean Corpuscular Volume 90.4 fL (81-100); NEUTROPHILS % (AUTO) 60.1 % (40-74); Platelet Count 311 bil/L (150-400)
[2017-01-25 05:50] LABS: Magnesium 1.8 mg/dL (1.6-2.6)
--- NOTE | 2017-01-25 08:38 | PCM.PNSURG ---
Subjective Date of Service: Jan 25, 2017 Visit Information: Reason for Visit Sepsis Surgery/Surgery Date Post-Op Day # 5 Date of Admission: Jan 10, 2017 at 20:31 Hospital Day # Subjective: Continues to have diarrhea, approximately 2 bowel movements a day. Eating a few amounts of food with predominant nausea without vomiting. Anorexic. Ambulating in the room with a walker, feels unsteady on her feet. Pain well controlled with oral analgesic. Denies shortness of breath. Postop General: No Complaints, No Shortness of Breath Gastrointestinal: Tolerating Oral Feedings, Diarrhea, Complains of Nausea Pain Management: PO Postop Activity: Ambulates with Assist Device, Ambulating in Room Only Objective Vital Sign- Last 8 Hours Date Time Temp Pulse Resp B/P Pulse Ox O2 Delivery O2 Flow Rate FiO2 01/25/17 06:31 118 01/25/17 06:10 37.0 99 16 102/64 94 Nasal Cannula 1.00 01/25/17 01:57 76 16 102/61 96 Nasal Cannula 1.00 Intake and Output- Last 8 Hour 01/25/17 Cumulative From/Thru 07:00 01/10/17 15:14 - 01/25/17 06:10 Intake Total 23830 ml Output Total 67842 ml Balance 82400 ml Intake Oral 8292 ml IV Total 81719 ml Output Urine Total 64886 ml Urine/Stool Mix 1 ml Emesis 850 ml # Bowel Movements 59 General: Cooperative, No Acute Distress, Other (drowsy but easily to arouse) Lungs: Clear to Auscultation (in the anterolateral buckner) Heart: Other (irregular) Abdomen: Soft, Non-tender, Distended (with fluid wave), Ascites SURGICAL WOUND : Wound General Appearence: No Erythema, Wound under dressing (port sites under dressing), Other (right lower extremity wound under dressing) Extremities: Edema Generalized, Other (both lower extremity is tender to touch. ) Neuro: Normal Speech Result Diagram: 01/25/17 0506 01/25/17 0506 Assessment & Plan Impression Primary diagnosis: 1. C. difficile colitis, recalcitrant. 2. Spontaneous bacterial peritonitis, resolving. POD #5 following diagnostic laparoscopy and enterolysis. Ascites has reaccumulated. Nontoxic. 3. Umbilical hernia. POD #5 following primary repair, stable. 4. Septic shock, resolved. 5. UTI, resolved Other diagnoses: 1. Arthritis, 2. h/o pneumonia, 3. Cerebrovascular disease with history of CVA 1989, 4. COPD, 5. Lupus, 6. Cirrhosis, 7. Anemia of chronic disease 8. TIA (1989), 9. Osteoporosis, 10. Uropathy, 11. h/o rectovaginal fistula, 12. Gastroesophogeal reflux disease 13. Daily cigarette smoker 14. Sacral decubitus 2 15. Right lower extremity cellulitis Problems: Plan As per hospitalist Pain Management: Gabapentin OxyContin Oxycodone VTE Prophylaxis: Sub-Q Heparin (Unfractionated) Resuscitation Status: Limited Interventions Srinivasan Jain PA-C Jan 25, 2017 08:38
[2017-01-25] MEDS ORDERED: Potassium Chloride 20 mEq/15 mL 15mL Oral Soln PO ONE (09:00)
[2017-01-25] MEDS ORDERED: Potassium Chloride Inj 40 MEQ in Dextrose 5% 250 ML IV ONE (09:00)
[2017-01-25] MEDS: oxyCODONE ER 10 mg ER12 Tablet PO SCH ×2 (09:46→20:07)
[2017-01-25] MEDS: Nystatin 100,000 Unit/Gm 15 Gm Powder TOPICAL SCH ×2 (09:53→20:08)
--- NOTE | 2017-01-25 10:04 | DRSVH ---
PROCEDURE: X-RAY CHEST ONE VIEW ([id number]) INDICATIONS: 66 year-old female with shortness of breath. TECHNIQUE: One view of the chest was acquired. COMPARISON: [facility], CR, XR CHEST 1VW (PORTABLE), 01/24/2017, 8:31. [facility], CR, XR CHEST 1VW (PORTABLE), 01/22/2017, 12:24. [facility], CR, XR CHEST 1VW (PORT ABLE), 01/21/2017, 9:23. FINDINGS: Surgical changes and devices: Right internal jugular central venous catheter remains in expected posi tion. Lungs and pleura: Small bibasilar pleural effusions persist, along with retrocardiac air space opacit y. No pneumothorax. Mediastinum: Mediastinal contours appear normal. Heart size is normal. Bones and chest wall: No suspicious bony lesions. Nonacute right fifth rib fracture is again noted. Significant thoracic and lumbar spine scoliosis is again noted. Overlying soft tissues appear unrema rkable. IMPRESSION: Persistent small bibasilar pleural effusions, as well as retrocardiac compressive atelect asis versus pneumonia. Dictated by: Tai Kee M.D. on 01/25/2017 at 10:00 Approved by: Tai Kee M.D. on 01/25/2017 at 10:02
[2017-01-25] MEDS ORDERED: Magnesium Sulf 2 Gm/50mL Water 2 GM in IV Premix 1 EACH IV ONE (10:35)
--- NOTE | 2017-01-25 11:55 | PROG NOTE ---
[address] [address] PROGRESS NOTE PATIENT: OSMAN WOLFE : 1950 MR#: [id number] ADMIT: 01/10/2017 JOB ID: [id number] DATE: 01/25/2017 INFECTIOUS DISEASE FOLLOWUP NOTE: REASON FOR FOLLOWUP: Life-threatening C. difficile colitis. INTERVAL HISTORY: The patient has now been off all of her many antibiotics for a little more than a day. She reports she is feeling slightly better, without fevers or chills. She continues to have several loose small volume bowel movements per day, as well as some abdominal distention, but she no longer has much in way of abdominal pain. She notes that she became quite nauseated today after receiving some liquid potassium and says she will refuse that in the future in lieu of getting IV potassium if possible. No significant pulmonary complaints. She notes her bilateral lower extremity edema is slightly better. PHYSICAL EXAMINATION: Reveals an afebrile woman who appears quite chronically ill after all of her recent hospitalizations and problems. She is afebrile temp 36.9, pulse 83, respiratory rate 18, blood pressure 106/73, saturating well on 1 L. Mental status is clear. Oral cavity without pharyngitis. Lungs relatively clear. Cardiac tones without new murmur or abnormality. The patient's abdomen is distended, but not tender in the midline. She still has a Mendes catheter which could probably be removed in the near future. Her right lower extremity below the knee is wrapped and I will plan to look at that later today if possible with the wound management team. Both lower extremities have some edema, which is perhaps slightly improved but still quite noticeable. LABORATORIES: Include a white count which is staying quite stable at 7300 with a normal diff. Creatinine 0.31. LFTs normal. Fungitell has come back negative The peritoneal fluid from the paracentesis on January 17 had 175 white cells and the culture of that was negative. Recall that the patient did have a stool that was positive for C. diff. MRSA screen was negative. Blood cultures negative. A chest x-ray was done today and it shows persistent bibasilar small pleural effusions as well as retrocardiac atelectasis versus pneumonia. IMPRESSION: This patient seems to be doing relatively well off antibiotics and I think we have likely achieved the maximum benefit of her antibiotics at this point. This patient seems to be doing relatively well considering that she started in septic shock, with life-threatening Clostridium difficile colitis. She has received what would seem to be a very aggressive and prolonged course of therapy for the Clostridium difficile including two weeks of fidaxomicin, plus some vancomycin and Flagyl, and I think at this point it is reasonable to withhold all antibiotics and see how she does. There has been some controversy as to whether or not she has spontaneous bacterial peritonitis, but I think not as she had less than 250 white cells in her peritoneal fluid and cultures were negative. RECOMMENDATIONS: 1. Will continue to observe this patient off antibiotics. 2. Given her very severe right leg infection, which kept her in the hospital for a prolonged period, and now her ICU-requiring C. diff complication, the patient is undoubtedly going to require a period of rehabilitation, but I think are with respect to the ID service the best point here would be to try and keep her off antibiotics and watch her for a bit before transfer to rehab or a half-way facility.
[2017-01-25] MEDS: Furosemide 10 mg/mL 4 mL Inj IVPUSH SCH ×2 (13:29→20:08)
--- NOTE | 2017-01-25 14:28 | PCM.PNMED ---
Subjective Date of Service Jan 25, 2017 Subjective Diarreha cont, neg c diff on 01/23 - avg 2 BM yesterday - inc this AM - low potassium today, replacing. denies cp/sob/fever/c - low PO intake, needs considerable encouragement to work with PT Exam Vital Signs Vital Sign - Last Date Time Temp Pulse Resp B/P Pulse Ox O2 Delivery O2 Flow Rate FiO2 01/25/17 12:18 36.6 74 18 105/66 95 Nasal Cannula 1.00 Intake and Output 01/24/17 01/24/17 01/25/17 Cumulative From/Thru 15:00 23:00 07:00 01/10/17 15:14 - 01/25/17 06:10 Intake Total 688 ml 1076 ml 57511 ml Output Total 500 ml 2600 ml 88137 ml Balance 188 ml -1524 ml 84809 ml Intake Oral 150 ml 836 ml 8292 ml IV Total 538 ml 240 ml 60313 ml Output Urine Total 500 ml 2600 ml 41975 ml Urine/Stool Mix 1 ml Emesis 850 ml # Bowel Movements 2 1 59 Exam General: Alert, Cooperative, No Acute Distress, deconditioned Eyes: Scleral Anicteric Nose: Mucous Membr Moist/[place] Mouth: Mucous Membr Moist/[place] Neck: Supple Chest & Lungs: Chest Wall Normal, Clear to auscultation & percussion Cardiovascular: Regular Rate/Rhythm Abdomen: Distended, mild tenderness - +BS Extremities: bilat LE edema sig - warmth, RLE dressed Neurological: Grossly Neurologically Intact, Normal Speech IVs and Medications Medications Reviewed: Medications were reviewed in detail Medications off antibiotics per ID Lab and Diagnostics Result Diagram: 01/25/17 0506 01/25/17 0506 Microbiology Assessment & Plan 66 year old female admitted for acute c-diff colitis with stay in the ICU x2. Downgraded from ICU 01/22/19. Antibiotics discontinued after 2 week course. Pulmonology continues to fall secondary to worsening of her chest x-ray increase in edema and shortness of breath. Possible etiologies include pneumonia, SPEP, or iatrogenic. Diagnostic paracentesis showed no organisms however did show leukocytosis of 170 (while this does not meet criteria could be from a pulmonary cause). # Pulmonary edema, most likely secondary to fluid administration and decreased urinary output. - Chest x-ray showed Edema and increasing bilateral airspace opacifications suggestive of worsening pulmonary edema and/or pneumonia. - White count normalized, pro-calcitonin continues to trend down last result yesterday 0.2 from peak of 32.85 - Per ID consult all antibiotics discontinued - Stop IV fluids - 40 mg IV Lasix ordered resulting in urine output of approximately 2 L. Will continue additional 40 mg IV Lasix tonight and repeat chest x-ray in the morning. - Continue to monitor 66 year old female admitted for acute c-diff colitis with stay in the ICU x2 due to worsening of sepsis late last week. Downgraded from ICU 01/22/19 s/p surgery with emp abx for poss SBP/c diff, now stopped # Recurrent Septic shock, first from c-diff colitis and again from presumed SBP ; Present on admission; resolved - The patient had recurrent hypotension postoperatively and the norepinephrine drip was resumed. - She is now off the norepinephrine since 01/22 - Currently improving # Severe acute C. difficile Colitis: poa; improved - though today having continued bouts of diarrhea causing acute hypokalemia - CT scan on January 17 indicated toxic megacolon. - appreciate surgery consult. will f/u w/ recs. Dr. Cortez performed laparotomy without apparent colitis. - appreciate ID consult also. will f/u w/ recs - Fidaxomicin finished 01/24. observed off antibiotics x 1 more day per ID, Dr. Lopez # Dyspnea, acute on chronic. not poa. - CXR 01/24/17 showing: "Edema and increasing bilateral airspace opacifications suggestive of worsening pulmonary edema and/or pneumonia." - appreciate pulmonology consult. will f/u w/ recs - IV Lasix per pulmonology # Possible SBP vs possible pneumonia; npoa; improving - Diagnostic paracentesis revealing no organisms but a leukocytosis of 170, although this does not meet criteria; other cause could be pulmonary although that is also felt to be less likely - Stopped Meropenem on 01/23 per ID recs - unclear etiology for patient's new onset abdominal ascites. ? if 2ndry to presenting sepsis and fluid overload earlier. f/u # Acute hypokalemia and hypomagnesemia, likely 2/2 to loose stool above - replete and followup # Maggi UTI; npoa; ongoing - Pt is not symptomatic - Consider treating if symptoms arise # Sacral decubitus ulcer, right upper tibial area decubitus ulcer, stage II, present on admission - Wound care ordered for this chronic and ongoing problem. # Urinary tract infection, acute. Was treated with antibiotics, had Escherichia coli 100,000 CFU's. Antibiotic course finished. Resolved. # Elevated troponin : Likely due to hypotension /septic shock . Patient has no angina - Follow clinically, no workup for ischemic cardiac disease at this time # Acute renal failure , POA. Resolved. # Right leg wound, stage III, present on admission. - Wound care ordered for this ongoing problem. # Acute metabolic encephalopathy, POA. Resolved # Neuropathy chronic, - Continue gabapentin - Minimize opioid use # Acute Hypokalemia. Resolved # Acute Hypocalcemia. poa. ongoing - replete and f/u # Metabolic acidosis , lactic acidosis.POA. Resolved. Dispo: Likely SNF in 1-2 days pending improved respiratory status. remaining stable off of Abx VTE Prophylaxis: Sub-Q Heparin (Unfractionated) VTE Mechanical Devices: Intermittant Pneumatic CD Resuscitation Status: Limited Interventions Time spent 40 min spent with eval and mgmt Rolando Wilson DO Jan 25, 2017 14:28
--- NOTE | 2017-01-25 16:06 | PROG NOTE ---
[address] [address] PROGRESS NOTE PATIENT: OSMAN WOLFE : 1950 MR#: [id number] ADMIT: 01/10/2017 JOB ID: [id number] DATE: 01/25/2017 PULMONARY FOLLOWUP NOTE: PROBLEM LIST: 1. Congestive heart failure. 2. Peripheral edema. 3. Neuropathy. SUBJECTIVE: The patient is sitting up in a chair. Breakfast is in front of her. States she does not want breakfast, just wants to be put back in bed. Complaining bitterly of pain in her buttocks and chair being comfortable. Conveys very little other information, with major complaint being wanting to get back in bed. OBJECTIVE: Temperature 36.6, pulse 74, respiratory rate 18, blood pressure 105/66, O2 sat on 1 L is 95%. General appearance: Sitting in a chair. Very difficult to examine. Leaning her forward a little bit showed decreased to absent breath sounds at the right base, maybe a little at the left base. More cephalad, there were inspiratory crackles throughout both lung buckner, sparing only the apices. Heart: Irregular rhythm. Heart tones otherwise seem normal. Abdomen is soft. Extremities: 3+ pretibial edema. Skin is not as taut as yesterday. BLOOD WORK: Shows sodium 142, potassium 3, chloride 106, CO2 is 30, BUN less than 2, creatinine 0.3, calcium 7.2, phosphorus 2, magnesium 1.8. ASSESSMENT: Congestive heart failure. The patient's breathing is a bit better according to her report. Still with pain and swelling in her legs, though the pain and swelling are demonstrably less, though still significant in amount. The patient receiving magnesium and potassium supplementation. The patient already receiving potassium. She apparently is eating. Do not want to infuse sodium phosphate due to her marked fluid overload. Will try depend on her diet to replete her phosphorus. Recheck in morning. PLAN: 1. Continue b.i.d. IV Lasix. 2. Check lytes and phosphorus in a.m.
--- NOTE | 2017-01-25 17:05 | NUR ---
Wound Care Patient seen for wound reassessment today, I notice significantly more edema and drainage at the right leg today compared to the last time I changed dressings. With dressing removed i can visualize that the wound is unchanged dimensionally from my previous assessment 3 days ago and I can watch clear fluid drain from the wound while it is undressed. Wound needed minimal mechanical debridement of biofilm with gauze today. Redressed with Xeroform, abd pad and then 2 rolls of kerlix wrap. Wound continues to remain stable without sign of infection but is not mounting a healing response, albumin was normal on 01/23 so i am unsure of the cause for nonhealing wound. Nursing can change dressings daily at this point to control drainage.
--- NOTE | 2017-01-25 17:28 | NUR ---
Cares/Loose Stool Frequently refused to be repositioned. Explained purpose of repositioning and patient states "I don't care". Redness noted on sacrum, blanchable. Barrier cream applied. PT and this RN transferred patient to chair with FWW. Very resistive to doing this yet safely allowed us to transfer her. Continues to be incontinent of bowel. Encouraged patient to request bedpan for BM's and patient stated that "you wouldn't be able to get it to me fast enough." Continues to have frequent loose stool, green/brown in color. notified.
[2017-01-26] MEDS: Heparin 5,000 Unit/mL Inj SUBQ SCH ×3 (00:28→17:27)
[2017-01-26 04:40] VITALS: BP 106/70; PULSE 95; RESP 18; O2SAT 94
[2017-01-26 04:52] LABS: BASOPHILS % (AUTO) 0.7 % (0-3); EOSINOPHILS % (AUTO) 1.6 % (0-5); MONOCYTES % (AUTO) 16.1 % (4-12); Mean Corpuscular Hemoglobin 29.3 pg (27.0-35.0); Mean Corpuscular Volume 90.8 fL (81-100); NEUTROPHILS % (AUTO) 53.9 % (40-74); Platelet Count 330 bil/L (150-400)
[2017-01-26 05:37] VITALS: PULSE 131
[2017-01-26 07:44] LABS: Magnesium 2.1 mg/dL (1.6-2.6); Phosphorus 2.3 mg/dL (2.5-4.9)
--- NOTE | 2017-01-26 07:45 | PCM.PNSURG ---
Subjective Date of Service: Jan 26, 2017 Date of Service: Jan 26, 2017 Visit Information: Reason for Visit: Postop visit Surgery: Diagnostic laparoscopy, lysis of adhesions, open repair of umbilical hernia. Surgery Date: 01/20/17 Post-Op Day # 6 Date of Admission: Jan 10, 2017 at 20:31 Subjective: The patient is resting in bed in no apparent distress. She is frustrated with the process with physical therapy. She feels should be further along than she currently is. It is difficult for her to stand, ambulate, and sit in a chair for greater than an hour. She is looking forward to being transferred to [facility] in [place]. She is tolerating a general diet, denies nausea or vomiting. She denies abdominal pain, and very little discomfort at incisional sites Gastrointestinal: Tolerating Oral Feedings, No N/V Pain Management: PO Postop Activity: Ambulating in Room Only (with nursing assist) Objective Vital Sign- Last 8 Hours Date Time Temp Pulse Resp B/P Pulse Ox O2 Delivery O2 Flow Rate FiO2 01/26/17 05:37 131 01/26/17 04:40 36.8 95 18 106/70 94 Nasal Cannula 2.00 Intake and Output- Last 8 Hour 01/26/17 Cumulative From/Thru 07:00 01/10/17 15:14 - 01/26/17 05:18 Intake Total 94363 ml Output Total 22652 ml Balance 18599 ml Intake Oral 9064 ml IV Total 48539 ml Output Urine Total 29562 ml Urine/Stool Mix 1 ml Emesis 850 ml # Bowel Movements 63 General: Alert, Oriented X3 Lungs: Coarse Heart: Regular Rate/Rhythm, No Murmurs/Rubs/Gallops Abdomen: Soft, Appropriately tender, Distended, Normoactive bowel tones (bowel movements are more formed), Ascites Extremities: Edema Generalized (lower extremities bilateral) Neuro: Grossly Neurologically Intact Catheters: Urethral 2 Way [place] Result Diagram: 01/26/17 0445 01/25/17 0506 Assessment & Plan Impression 66-year-old female with multiple chronic medical problems including cirrhosis with h/o ascites, history of lupus-details unknown, peripheral neuropathy, ongoing tobacco use and history of "COPD", history of stroke and recent lower extremity cellulitis status post debridement being followed at [facility], who was initially hospitalized 2 weeks ago with probable colitis with associated septic shock, over the weekend her symptoms worsened including increasing pain, increasing white blood cell count and a CT scan that was consistent with possible toxic megacolon, a bedside paracentesis was equivocal and it was felt that she needed to be brought to the operating room for possible subtotal colectomy with diverting loop ileostomy. However, in the operating room, there was no significant colitis found and her symptoms were felt to be secondary to Spontaneous Bacterial Peritonitis, and 3600mL fluid was drained . However, cultures so far are not c/w SBP. There was an umbilical hernia that was found and primarily repaired without mesh. Currently, she seems to be improving with white blood cell count normal at 9.4 today, minimal abdominal pain and no leakage of fluid around her surgical sites yet she continues with diarrhea secondary to her Clostridium difficile enterocolitis and abdominal distention Primary diagnosis: 1. C. difficile colitis, recalcitrant. 2. Spontaneous bacterial peritonitis, resolving. POD # 6 following diagnostic laparoscopy and enterolysis. Ascites has reaccumulated. Nontoxic. 3. Umbilical hernia. POD # 6 following primary repair, stable. 4. Septic shock, resolved. 5. UTI, resolved Other diagnoses: 1. Arthritis, 2. h/o pneumonia, 3. Cerebrovascular disease with history of CVA 1989, 4. COPD, 5. Lupus, 6. Cirrhosis, 7. Anemia of chronic disease 8. TIA (1989), 9. Osteoporosis, 10. Uropathy, 11. h/o rectovaginal fistula, 12. Gastroesophogeal reflux disease 13. Daily cigarette smoker 14. Sacral decubitus 2 15. Right lower extremity cellulitis Problems: Plan Per hospitalist team [facility] 1 to 2 days Pain Management: By mouth OxyContin, oxycodone, Tylenol VTE Prophylaxis: Sub-Q Heparin (Unfractionated) Resuscitation Status: Limited Interventions Emani Parker PA-C Jan 26, 2017 07:45
[2017-01-26 08:00] VITALS: PULSE 100
[2017-01-26] MEDS: Furosemide 10 mg/mL 4 mL Inj IVPUSH SCH (08:16)
[2017-01-26] MEDS: oxyCODONE ER 10 mg ER12 Tablet PO SCH ×2 (08:18→19:53)
[2017-01-26] MEDS: Nystatin 100,000 Unit/Gm 15 Gm Powder TOPICAL SCH ×2 (08:19→19:53)
--- NOTE | 2017-01-26 09:00 | DRSVH ---
PROCEDURE: X-RAY CHEST ONE VIEW, PORTABLE ([id number]) INDICATIONS: CHF TECHNIQUE: One view of the chest was acquired. COMPARISON: [facility], CR, XR CHEST 1VW (PORTABLE), 01/24/2017, 8:31. FINDINGS: Surgical changes and devices: Stable position right IJ CVL. Lungs and pleura: Persistent pulmonary edema and midlung/bibasilar airspace opacification not signifi cantly changed and small bilateral pleural effusions are redemonstrated. Mediastinum: Mediastinal contours appear normal. Heart size is normal. Bones and chest wall: No suspicious bony lesions. Overlying soft tissues appear unremarkable. Mode rate S-shaped scoliosis. IMPRESSION: 1. Stable position right IJ CVL. 2. Pulmonary edema and/or bilateral pneumonia. 3. Small effusions bilaterally. Dictated by: Luis E Coello [facility] Interpreted: Gisella Montana MD on 01/26/2017 at 8:57 Transcribed by: MAZIN on 01/26/2017 at 9:00 Approved by: Gisella Montana M.D. on 01/26/2017 at 17:17
[2017-01-26 09:07] VITALS: BP 102/63; PULSE 100; RESP 18; O2SAT 96
--- NOTE | 2017-01-26 10:36 | PCM.PNMED ---
Subjective Date of Service Jan 26, 2017 Subjective - Pt seen and examined this morning. Not in acute distress - AAO x 3. Had multiple soft bowel movements yesterday. Exam Vital Signs Vital Sign - Last Date Time Temp Pulse Resp B/P Pulse Ox O2 Delivery O2 Flow Rate FiO2 01/26/17 09:07 36.5 100 18 102/63 96 Nasal Cannula 2.00 Intake and Output 01/25/17 01/25/17 01/26/17 Cumulative From/Thru 15:00 23:00 07:00 01/10/17 15:14 - 01/26/17 05:18 Intake Total 300 ml 472 ml 51725 ml Output Total 1300 ml 1400 ml 87025 ml Balance -1000 ml -928 ml 19261 ml Intake Oral 300 ml 472 ml 9064 ml IV Total 68173 ml Output Urine Total 1300 ml 1400 ml 81822 ml Urine/Stool Mix 1 ml Emesis 850 ml # Bowel Movements 1 3 63 Exam General: Alert, Cooperative, No Acute Distress, deconditioned Eyes: Scleral Anicteric Nose: Mucous Membr Moist/[place] Mouth: Mucous Membr Moist/[place] Neck: Supple Chest & Lungs: Chest Wall Normal, Clear to auscultation & percussion Cardiovascular: Regular Rate/Rhythm Abdomen: Distended, mild tenderness - +BS Extremities: bilat LE edema sig - warmth, RLE dressed Neurological: Grossly Neurologically Intact, Normal Speech IVs and Medications Medications Reviewed: Medications were reviewed in detail Lab and Diagnostics Result Diagram: 01/26/1744401/26/17444 Microbiology Assessment & Plan 66 year old female admitted for acute c-diff colitis with stay in the ICU x2. Downgraded from ICU 01/22/19. Antibiotics discontinued after 2 week course. Pulmonology continues to fall secondary to worsening of her chest x-ray increase in edema and shortness of breath. Possible etiologies include pneumonia, SPEP, or iatrogenic. Diagnostic paracentesis showed no organisms however did show leukocytosis of 170 (while this does not meet criteria could be from a pulmonary cause). # Pulmonary edema, most likely secondary to fluid administration and decreased urinary output. - Chest x-ray showed Edema and increasing bilateral airspace opacifications suggestive of worsening pulmonary edema and/or pneumonia. - White count normalized, pro-calcitonin continues to trend down last result yesterday 0.2 from peak of 32.85 - Per ID consult all antibiotics discontinued - on lasix 40 bid - Continue to monitor # Recurrent Septic shock, first from c-diff colitis and again from presumed SBP ; Present on admission; resolved - The patient had recurrent hypotension postoperatively and the norepinephrine drip was resumed. - She is now off the norepinephrine since 01/22 - Currently improving # Severe acute C. difficile Colitis: poa; improved - though today having continued bouts of diarrhea causing acute hypokalemia - CT scan on January 17 indicated toxic megacolon. - appreciate surgery consult. will f/u w/ recs. Dr. Cortez performed laparotomy without apparent colitis. - appreciate ID consult also. will f/u w/ recs - Fidaxomicin finished 01/24. observed off antibiotics x 1 more day per ID, Dr. Lopez # Dyspnea, acute on chronic. not poa. - CXR 01/24/17 showing: "Edema and increasing bilateral airspace opacifications suggestive of worsening pulmonary edema and/or pneumonia." - appreciate pulmonology consult. will f/u w/ recs - IV Lasix per pulmonology # Possible SBP vs possible pneumonia; npoa; improving - Diagnostic paracentesis revealing no organisms but a leukocytosis of 170, although this does not meet criteria; other cause could be pulmonary although that is also felt to be less likely - Stopped Meropenem on 01/23 per ID recs - unclear etiology for patient's new onset abdominal ascites. ? if 2ndry to presenting sepsis and fluid overload earlier. f/u # Acute hypokalemia and hypomagnesemia, likely 2/2 to loose stool above - replete and followup # Maggi UTI; npoa; ongoing - Pt is not symptomatic - Consider treating if symptoms arise # Sacral decubitus ulcer, right upper tibial area decubitus ulcer, stage II, present on admission - Wound care ordered for this chronic and ongoing problem. # Urinary tract infection, acute. Was treated with antibiotics, had Escherichia coli 100,000 CFU's. Antibiotic course finished. Resolved. # Elevated troponin : Likely due to hypotension /septic shock . Patient has no angina - Follow clinically, no workup for ischemic cardiac disease at this time # Acute renal failure, POA. Resolved. # Right leg wound, stage III, present on admission. - Wound care ordered for this ongoing problem. # Acute metabolic encephalopathy, POA. Resolved # Neuropathy chronic, - Continue gabapentin - Minimize opioid use # Acute Hypokalemia. - K today: 3.9 Dispo: Likely SNF in 1-2 days pending improved respiratory status. remaining stable off of Abx VTE Prophylaxis: Sub-Q Heparin (Unfractionated) VTE Mechanical Devices: Intermittant Pneumatic CD Resuscitation Status: Limited Interventions Zeeshan Blackburn MD Jan 26, 2017 10:36
--- NOTE | 2017-01-26 10:45 | PROG NOTE ---
[address] [address] PROGRESS NOTE PATIENT: OSMAN WOLFE : 1950 MR#: [id number] ADMIT: 01/10/2017 JOB ID: [id number] DATE: 01/26/2017 INFECTIOUS DISEASE FOLLOW UP NOTE: REASON FOR FOLLOWUP: Life-threatening C difficile colitis. INTERVAL HISTORY: The patient has been off all of her antibiotics now for a few days and seems quite stable to improved. She tells me today she is feeling the best she has in the recent past and is looking forward to being transferred back to [facility] where she can get some rehabilitation and feel somewhat stronger. She is also looking forward to the day when she can have her right lower extremity wound grafted. She has no fevers, no chills. No sweats. No cough, shortness of breath or chest pain. She does have some vague right-sided abdominal pain, but it is not severe and she is able to eat and drink. She no longer has diarrhea. The nurse's report only one bowel movement in the past 24 hours. PHYSICAL EXAMINATION: Reveals an afebrile woman who is chronically ill but in no acute distress. Temperature 36.5, pulse 100, respiratory rate 18, blood pressure 102/63. She is saturating well on 2 L. Mental status is clear. Mood is good. Oral cavity negative. Right neck triple lumen CVP is benign appearing. Lungs with a few crackles at the bases but relatively clear. Abdomen: Slightly distended, without overt ascites. No focal tenderness is noted. The patient's right lower extremity below the knee still has a dressing in place. I discussed this in detail with Teja of wound management yesterday as he had changed the wounds yesterday afternoon and I was not available to watch at the time of the changing of the dressing. Teja reports the wound is very clean and without any evidence of purulence. Plans are in place to have a skin graft applied. LABORATORIES: Include a white count of 8600, platelet count 330. Creatinine is 0.46. Procalcitonin 0.16. Urinalysis with 11-50 white cells. Peritoneal fluid cultures are negative. Fungitell negative. Micro studies: Nothing new. Our last culture was a urine that grew Maggi albicans back on the which is likely of no clinical significance. Today's chest x-ray shows persistent pulmonary edema which has not changed recently and some small pleural effusions. IMPRESSION: This patient has recovered nicely from her life-threatening C. difficile which started a couple weeks ago. At this point, all of her antibiotics have been stopped and recall she was treated with multiple agents for C. difficile during her long hospital stay which is now into its 17th day. She did have the development of ascites during this admission and underwent a large volume paracentesis with negative cell counts and cultures which argue against SBP though she was treated for this briefly. I note that the surgical notes reflect that she has cirrhosis but it is not clear to me if this is a confirmed diagnosis. The patient states she has no knowledge of it. She was apparently a heavy drinker until her late 50s but has nothing to drink for the past seven years or so and she is not aware of hepatitis C, though it does not seem that we tested her for that during this admission. RECOMMENDATIONS: 1. I think the patient can be discharged without antibiotics back to her care home facility. 2. I am adding a hepatitis C antibody. If this is positive, this is something we would need to followup with as an outpatient as a possible explanation for ascites but it is certainly possible that the ascites was related in some way to her very severe C. difficile colitis and fluid overload with low albumin. 3. ID will go ahead and sign off today. Please do not hesitate to call me if there are questions or problems with this complex case.
--- NOTE | 2017-01-26 13:09 | NUR ---
NUTRITION FOLLOW UP: ASSESS: 66 YO F admitted with septic shock and severe C. diff colitis, and spontaneous bacterial peritonitis s/p paracentesis. Pt is s/p laparotomy with lysis of adhesions and open repair of umbilical hernia. She is on a general diet. Pt doesn't order large meals but does drink whole milk at all meals and frequently snacks on food that is stocked on the floor. Because pt is eating snacks along with small meals her PO intake may be a bit better than what is recorded. PMHx: Arthritis, COPD, CVA, Pneumonia, Lupus, TIA, anemia, osteoporosis, GERD, Tubal ligation, carpal tunnel, left hip repair. LABS: Reviewed. Bun 2, pick up worker .46, Glu 110, Ca 7.7, phos 2.3, alb 3.4 MEDS: Reviewed. Lasix, tums, zofran GI:BM x 4 01/25 SKIN: Stage II PU's on sacrum and buttocks; PU on right upper calf per WC. WT: 86.4kg (wt changes likely fluid related), BMI: 28.1 kg/m2, Admit Wt: 62.5 kg Previous Admit (12/16/16): 77.5 kg, IBW: 65.9 kg DIET: General. Pt eats lots of snacks along with small meals. ESTIMATED NEEDS: COPD, wound Calorie: 0833-8365 kcal/day (30-40 kcal/kg BW) Protein: 80-120 g/day (1.2-1.8 g/kg BW) NUTRITION DIAGNOSIS: 1) Increased nutrient needs related to wound healing and chronic illnesses as evidenced by ongoing treatment for wound on right leg, COPD and GI surgery - PERSISTS. 2) Inadequate oral intake related to GI upset as evidenced by C. Diff positive and minimal PO intake x 13 days - IMPROVING. NUTRITION INTERVENTION: 1) Will cancel Impact on diet order. Continue to encourage pt to eat foods that she likes and encourage pt to order meals. MONITOR/EVALUATE: PO intake, wt, GI, wounds, labs, nutrition status, POC. Follow per high nutrition risk guidelines.
[2017-01-26 13:20] VITALS: BP 103/65; PULSE 98; RESP 19; O2SAT 95
[2017-01-26] MEDS ORDERED: Potassium Phos (mEq) Inj 20 MEQ in Dextrose 5% 250 ML IV ONE (13:20)
--- NOTE | 2017-01-26 14:14 | PROG NOTE ---
[address] [address] PROGRESS NOTE PATIENT: OSMAN WOLFE : 1950 MR#: [id number] ADMIT: 01/10/2017 JOB ID: [id number] DATE: 01/26/2017 PULMONARY FOLLOWUP NOTE: PROBLEMS: 1. Peripheral edema. 2. Congestive heart failure. 3. Neuropathy. SUBJECTIVE: Feeling better today. Breathing more comfortably. Minimal to no cough. Leg still swollen. Possibly better, though not appreciably so. However, they are not painful and not bothering her. Appetite returning. OBJECTIVE: Temperature 36.8, pulse 98, respiratory rate 19, blood pressure 103/65, O2 sat on 2 L is 95%. General appearance: Sitting in bed with head of bed elevated about 30-45 degrees. Comfortable appearing. Chatting easily. Chest: Significantly decreased breath sounds at both bases. Mild to moderate decrease in mid and upper lung buckner. Lung buckner are clear. No use of accessory muscles. Heart: Somewhat irregular rhythm. Heart tones seem normal. Abdomen: Soft. Nondistended. Nontender. Bowel tones present. Extremities: Right lower extremity wrapped in gauze bandage. Left lower extremity moderately edematous, with scaling flaking skin. LABORATORY DATA: Shows a white count of 8600 with 53 polymorphonuclears, 27 lymphocytes, 16 monocytes. Hemoglobin stable at 7.3. Platelet count stable at 330,000. Sodium 140, potassium 3.9, chloride 103, CO2 is 29, BUN 2, creatinine 0.4, calcium 7.7. Phosphorus mildly low at 2.3 with lower limits of normal being 2.5 mg/dL. Magnesium normal at 2.1. Procalcitonin relatively stable at 0.16. Chest x-ray shows persistent fluffy infiltrates with bibasilar airspace opacifications in both bases and mid lung buckner. ASSESSMENT: 1. Congestive heart failure. Breathing much more comfortable. Oxygenating well and her respiratory symptoms have for the most part resolved. However, she remains relatively inactive and hard to tell how she would do with any activity. Legs still moderately swollen. Are softer and I suspect they are slowly coming down. Significant dermatologic changes on the left. Right is wrapped. Will need to re-look at the wound to make sure the wound continues to heal. She has chronic wound care and with the recent significant edema hopefully the situation has not regressed. 2. Hypophosphatemia. Is doing a little better with the phosphorus with her diet. However, given her weakness, I think it would be helpful to get her phosphorus up. Can use K-Phos. 3. Hopefully plan is upcoming regarding discharge. Will switch her over to Lasix orally to see if we can continue her diuresis without having to resort to IV route. At this point treatment consists of a controlled diuresis to decrease her peripheral edema. I think she can go to [facility] whenever that can be arranged for physical therapy. Pulmonary will stop following at this point. If any future questions or problems arise for which we can be of any assistance, please feel free to contact us.
--- NOTE | 2017-01-26 15:42 | NUR ---
Transfer to 1010 Pt transferred to room 1010, report given to RN. All belongings packed by MANAGER VALUATION along with extra supplies in room and taken down with pt. Pt VS stable at time of transfer.
--- NOTE | 2017-01-26 17:00 | NUR ---
RECEIVED FROM [facility] Patient received from [facility] via a hospital bed (P500). On room air. Triple lumen IJ noted with Keyshawn isaacs ongoing. Dressing noted in her abdomen. Patient did not want me to touch those dressings. Dressing on her RLE. Changed prior to transfer to the floor. Dressing is CDI at this time. Unable to do a full skin assessment since patient refused to be turned and repositioned. IFC intact and draining to gaudencio colored UO. Denies pain. Denies nausea. Denies SOB. Oriented to room and call light.
[2017-01-26 20:29] VITALS: BP 95/64; PULSE 125; RESP 18; O2SAT 92
[2017-01-27] MEDS: Heparin 5,000 Unit/mL Inj SUBQ SCH ×3 (00:07→16:41)
--- NOTE | 2017-01-27 02:27 | NUR ---
Skin Care Refusal Patient A&OX3 and agitated at beginning of shift. Upon initial assessment, denied skin assessment and repositioning. As the night has progressed pt has been more compliant with care but still refuses skin assessment, and repositioning. Patient states that she may allow a skin assessment to be preformed in the morning. Will continue to monitor, and continue to assess patients compliance.
[2017-01-27 05:28] VITALS: BP 95/59; PULSE 69; RESP 16; O2SAT 94
[2017-01-27 06:00] LABS: BASOPHILS % (AUTO) 0.6 % (0-3); EOSINOPHILS % (AUTO) 1.4 % (0-5); MONOCYTES % (AUTO) 14.2 % (4-12); Mean Corpuscular Hemoglobin 29.5 pg (27.0-35.0); Mean Corpuscular Volume 90.6 fL (81-100); NEUTROPHILS % (AUTO) 48.5 % (40-74); Platelet Count 307 bil/L (150-400)
[2017-01-27 06:31] LABS: Magnesium 1.6 mg/dL (1.6-2.6); Phosphorus 3.1 mg/dL (2.5-4.9)
[2017-01-27] MEDS: oxyCODONE ER 10 mg ER12 Tablet PO SCH ×2 (08:44→21:42)
[2017-01-27] MEDS: Nystatin 100,000 Unit/Gm 15 Gm Powder TOPICAL SCH ×2 (08:45→21:42)
--- NOTE | 2017-01-27 11:18 | PCM.PNSURG ---
Subjective Date of Service: Jan 27, 2017 Visit Information: Disgnostic Laparoscopy, Umbilical Hernia repair 01/20/2017 Post-Op Day # 7 Date of Admission: Jan 10, 2017 at 20:31 Hospital Day # 18 Subjective: Light headed today Objective Vital Sign- Last 8 Hours Date Time Temp Pulse Resp B/P Pulse Ox O2 Delivery O2 Flow Rate FiO2 01/27/17 05:28 36.8 69 16 95/59 94 Room Air Intake and Output- Last 8 Hour 01/27/17 Cumulative From/Thru 07:00 01/10/17 15:14 - 01/26/17 19:17 Intake Total 85565 ml Output Total 80114 ml Balance 87969 ml Intake Oral 9850 ml IV Total 30838 ml Output Urine Total 37125 ml Urine/Stool Mix 1 ml Emesis 850 ml # Bowel Movements 64 Abdomen: Soft, Other (Incision C/D/I) Result Diagram: 01/27/17 0540 01/27/17 0540 Assessment & Plan Impression Doing well from surgical perspective Problems: Plan Will sign off F/U in Surgery PA clinic in a month Please call with questions Ravinder Melissa MD Jan 27, 2017 11:18
[2017-01-27 15:00] VITALS: BP 94/57; PULSE 103; RESP 16; O2SAT 93
--- NOTE | 2017-01-27 18:36 | NUR ---
refusal of care patient alert and oriented, pleasant. has been refusing to get up OOB, increasing her mobility and turning to help prevent skin breakdown despite repeated education attempts. continue to monitor and encourage increasing mobility
[2017-01-27 21:35] VITALS: BP 101/61; PULSE 100; RESP 16; O2SAT 93
--- NOTE | 2017-01-27 21:52 | PCM.PNMED ---
Subjective Date of Service Jan 27, 2017 Subjective Patient is seen and examined. She is in good spirits. She has decubitus ulcers as well as leg ulcer on the right side. She is asking when she would be admitted to her custodial. Next a fevers, chills, nausea, vomiting, constipation. . Her C. difficile has much improved. No other concerns today. Exam Vital Signs Vital Sign - Last Date Time Temp Pulse Resp B/P Pulse Ox O2 Delivery O2 Flow Rate FiO2 01/27/17 15:00 37.1 103 16 94/57 93 Room Air 01/26/17 13:20 2.00 Intake and Output 01/26/17 01/26/17 01/27/17 Cumulative From/Thru 15:00 23:00 07:00 01/10/17 15:14 - 01/26/17 19:17 Intake Total 200 ml 586 ml 93556 ml Output Total 850 ml 1900 ml 30824 ml Balance -650 ml -1314 ml 64006 ml Intake Oral 200 ml 586 ml 9850 ml IV Total 01822 ml Output Urine Total 850 ml 1900 ml 15065 ml Urine/Stool Mix 1 ml Emesis 850 ml # Bowel Movements 1 64 Exam Gen.: No acute distress lying on her bed HEENT: Normocephalic, atraumatic Heart: Regular rate and rhythm no S3-S4 sounds Lungs clear to auscultation anteriorly Abdomen: Large soft obese abdomen normal bowel sounds are present Extremities dressing is present over a large area of her lower leg. That was on the right side Psych: Negative for anxiety Neuro no focal deficits IVs and Medications Medications Reviewed: Medications were reviewed in detail Lab and Diagnostics Result Diagram: 01/27/1740 01/27/1740 Microbiology Assessment & Plan 66 year old female admitted for acute c-diff colitis with stay in the ICU x2. Downgraded from ICU 01/22/19. Antibiotics discontinued after 2 week course. Pulmonology continues to fall secondary to worsening of her chest x-ray increase in edema and shortness of breath. Possible etiologies include pneumonia, SPEP, or iatrogenic. Diagnostic paracentesis showed no organisms however did show leukocytosis of 170 (while this does not meet criteria could be from a pulmonary cause). # Pulmonary edema, most likely secondary to fluid administration and decreased urinary output. - Chest x-ray showed Edema and increasing bilateral airspace opacifications suggestive of worsening pulmonary edema and/or pneumonia. - White count normalized, pro-calcitonin continues to trend down last result yesterday 0.2 from peak of 32.85 - Per ID consult all antibiotics discontinued - on lasix 40 bid - Continue to monitor # Recurrent Septic shock, first from c-diff colitis and again from presumed SBP ; Present on admission; resolved - The patient had recurrent hypotension postoperatively and the norepinephrine drip was resumed. - She is now off the norepinephrine since 01/22 - Currently improving # Severe acute C. difficile Colitis: poa; improved - though today having continued bouts of diarrhea causing acute hypokalemia - CT scan on January 17 indicated toxic megacolon. - appreciate surgery consult. will f/u w/ recs. Dr. Cortez performed laparotomy without apparent colitis. - appreciate ID consult also. will f/u w/ recs - Fidaxomicin finished 01/24. observed off antibiotics x 1 more day per ID, Dr. Lopez - She is continuing to have diarrhea today but this evening it is improving per staff. She will be appropriate for discharge later tomorrow # Dyspnea, acute on chronic. not poa. - CXR 01/24/17 showing: "Edema and increasing bilateral airspace opacifications suggestive of worsening pulmonary edema and/or pneumonia." - appreciate pulmonology consult. will f/u w/ recs - IV Lasix per pulmonology # Possible SBP vs possible pneumonia; npoa; improving - Diagnostic paracentesis revealing no organisms but a leukocytosis of 170, although this does not meet criteria; other cause could be pulmonary although that is also felt to be less likely - Stopped Meropenem on 01/23 per ID recs - unclear etiology for patient's new onset abdominal ascites. ? if 2ndry to presenting sepsis and fluid overload earlier. f/u # Acute hypokalemia and hypomagnesemia, likely 2/2 to loose stool above - replete and followup # Maggi UTI; npoa; ongoing - Pt is not symptomatic - Consider treating if symptoms arise # Sacral decubitus ulcer, right upper tibial area decubitus ulcer, stage II, present on admission - Wound care ordered for this chronic and ongoing problem. # Urinary tract infection, acute. Was treated with antibiotics, had Escherichia coli 100,000 CFU's. Antibiotic course finished. Resolved. # Elevated troponin : Likely due to hypotension /septic shock . Patient has no angina - Follow clinically, no workup for ischemic cardiac disease at this time # Acute renal failure, POA. Resolved. # Right leg wound, stage III, present on admission. - Wound care ordered for this ongoing problem. # Acute metabolic encephalopathy, POA. Resolved # Neuropathy chronic, - Continue gabapentin - Minimize opioid use # Acute Hypokalemia. - K today: 3.9 Dispo: Likely SNF in 1-2 days pending improved respiratory status. remaining stable off of Abx VTE Mechanical Devices: Intermittant Pneumatic CD Perla Shoemaker DO Jan 27, 2017 21:52
--- NOTE | 2017-01-27 23:34 | NUR ---
Refusal of Care/ Skin Care At beginning of shift patient appeared to be in better spirits than the day before. Continues to refuse Q2 turning, but did comply sooner to a brief change and skin care. Patient does not let nursing staff know that she has had a bowel movement in a prompt manner. Patient educated on the importance of letting nursing staff know when she has a bowel movement, so she can be changed and her skin can be cleaned to promote healing. Currently the patient is sleeping and appears comfortable. Will continue to monitor.
[2017-01-28] VITALS (8 sets, daily range): BP systolic 95–134; BP diastolic 54–67; PULSE 91–114; RESP 14–18; O2SAT 92–98
[2017-01-28] MEDS: Heparin 5,000 Unit/mL Inj SUBQ SCH ×3 (00:54→16:04)
--- NOTE | 2017-01-28 03:29 | NUR ---
Right Arm Pain As the night has progressed patient complains of right arm pain. She states that it "throbs," and is difficult to move. When assessed, her right arm around the elbow is warm to the touch, where the left arm is not, and appears to be slightly more swollen than the left. Night hospitalist notified and ordered for a Venous Duplex US of the R arm to be done in the am, to rule out DVT. varnish supervisor has been notified. Care continues.
[2017-01-28 06:04] LABS: BASOPHILS % (AUTO) 0.9 % (0-3); MONOCYTES % (AUTO) 16.1 % (4-12); Mean Corpuscular Hemoglobin 29.6 pg (27.0-35.0); Mean Corpuscular Volume 90.9 fL (81-100); NEUTROPHILS % (AUTO) 46.6 % (40-74); Platelet Count 257 bil/L (150-400)
[2017-01-28] MEDS ORDERED: 0.9% Sodium Chloride 250 ML IV SCH (06:10)
[2017-01-28 06:24] LABS: Magnesium 1.4 mg/dL (1.6-2.6); Phosphorus 3.3 mg/dL (2.5-4.9)
--- NOTE | 2017-01-28 06:51 | NUR ---
Critical lab value Critical lab value of potassium 2.7 reported this morning. notified. No new orders at this time. Will pass on to day shift.
[2017-01-28] MEDS ORDERED: Potassium Chloride 20 mEq SR Tablet PO ONE (07:05)
[2017-01-28] MEDS: oxyCODONE ER 10 mg ER12 Tablet PO SCH ×2 (07:59→20:27)
[2017-01-28] MEDS: Nystatin 100,000 Unit/Gm 15 Gm Powder TOPICAL SCH ×2 (08:00→20:27)
[2017-01-28] MEDS ORDERED: Magnesium Sulf 2 Gm/50mL Water 2 GM in IV Premix 1 EACH IV ONE (10:50)
--- NOTE | 2017-01-28 11:15 | PCM.PNMED ---
Subjective Date of Service Jan 28, 2017 Subjective Patient says she needed several transfusions in the past, she does not know why she has chronic anemia. She came in >10 hb now 7. She says she feels very sleepy when she is anemic, she feels sleepy now. Electrolytes are adjusted. 1 unit rbc are ordered. She says she has decubitus ulcers and a R leg ulcer. Otherwise she feels well and wanting to go home. She says that she wants to go SNF to start working on her rehabilitation soon. She signed a blood consent Exam Vital Signs Vital Sign - Last Date Time Temp Pulse Resp B/P Pulse Ox O2 Delivery O2 Flow Rate FiO2 01/28/17 05:45 36.1 114 134/57 95 Room Air 01/27/17 21:35 16 2.00 Intake and Output 01/27/17 01/27/17 01/28/17 Cumulative From/Thru 15:00 23:00 07:00 01/10/17 15:14 - 01/28/17 06:32 Intake Total 400 ml 760 ml 1160 ml 81214 ml Output Total 1750 ml 1350 ml 80278 ml Balance -1350 ml -590 ml 1160 ml 43021 ml Intake Oral 400 ml 760 ml 18220 ml IV Total 1160 ml 64341 ml Output Urine Total 1750 ml 1350 ml 68526 ml Urine/Stool Mix 1 ml Emesis 850 ml # Bowel Movements 1 6 71 Exam Gen.: No acute distress laying in bed HEENT:alopecia noted Heart: Regular rate and rhythm no S3-S4 sounds Lungs: Clear to auscultation anteriorly no crackles or wheezes Abd: normal bowel sounds, steristrips over surgical incisions, mild pain around RLQ. Extremities: Right lower leg wrapped in dressings Psych: Negative for anxiety Neuro: no focal deficits Lab and Diagnostics Result Diagram: 01/28/1752901/28/17529 Microbiology Assessment & Plan 66 year old female admitted for acute c-diff colitis with stay in the ICU x2. Downgraded from ICU 01/22/19. Antibiotics discontinued after 2 week course. Pulmonology continues to fall secondary to worsening of her chest x-ray increase in edema and shortness of breath. Possible etiologies include pneumonia, SPEP, or iatrogenic. Diagnostic paracentesis showed no organisms however did show leukocytosis of 170 (while this does not meet criteria could be from a pulmonary cause). # Pulmonary edema, most likely secondary to fluid administration and decreased urinary output. - Chest x-ray showed Edema and increasing bilateral airspace opacifications suggestive of worsening pulmonary edema and/or pneumonia. - White count normalized, pro-calcitonin continues to trend down last result yesterday 0.2 from peak of 32.85 - Per ID consult all antibiotics discontinued - on lasix 40 bid - Continue to monitor # Recurrent Septic shock, first from c-diff colitis and again from presumed SBP ; Present on admission; resolved - The patient had recurrent hypotension postoperatively and the norepinephrine drip was resumed. - She is now off the norepinephrine since 01/22 - Currently improving # Severe acute C. difficile Colitis: poa; improved - though today having continued bouts of diarrhea causing acute hypokalemia - CT scan on January 17 indicated toxic megacolon. - appreciate surgery consult. will f/u w/ recs. Dr. Cortez performed laparotomy without apparent colitis. - appreciate ID consult also. will f/u w/ recs - Fidaxomicin finished 01/24. observed off antibiotics x 1 more day per ID, Dr. Lopez - She is continuing to have diarrhea today but this evening it is improving per staff. She will be appropriate for discharge later tomorrow # Dyspnea, acute on chronic. not poa. - CXR 01/24/17 showing: "Edema and increasing bilateral airspace opacifications suggestive of worsening pulmonary edema and/or pneumonia." - appreciate pulmonology consult. will f/u w/ recs - IV Lasix per pulmonology # Possible SBP vs possible pneumonia; npoa; improving - Diagnostic paracentesis revealing no organisms but a leukocytosis of 170, although this does not meet criteria; other cause could be pulmonary although that is also felt to be less likely - Stopped Meropenem on 01/23 per ID recs - unclear etiology for patient's new onset abdominal ascites. ? if 2ndry to presenting sepsis and fluid overload earlier. f/u # Acute hypokalemia and hypomagnesemia, likely 2/2 to loose stool above - replete and followup: Patient will decide for clinic this morning and needed repletion, 2 g of mag sulfate IV was also given Acute on chronic anemia likely due to blood loss following surgery versus chronic disease: Iron panel, B12, folate ordered. One unit of blood is transfused. Follow-up H&H hemoglobin came up appropriately # Maggi UTI; npoa; ongoing - Pt is not symptomatic - Consider treating if symptoms arise # Sacral decubitus ulcer, right upper tibial area decubitus ulcer, stage II, present on admission - Wound care ordered for this chronic and ongoing problem. # Urinary tract infection, acute. Was treated with antibiotics, had Escherichia coli 100,000 CFU's. Antibiotic course finished. Resolved. # Elevated troponin : Likely due to hypotension /septic shock . Patient has no angina - Follow clinically, no workup for ischemic cardiac disease at this time # Acute renal failure, POA. Resolved. # Right leg wound, stage III, present on admission. - Wound care ordered for this ongoing problem. # Acute metabolic encephalopathy, POA. Resolved # Neuropathy chronic, - Continue gabapentin - Minimize opioid use Dispo: Likely SNF in 1-2 days pending improved respiratory status. remaining stable off of Abx VTE Mechanical Devices: Intermittant Pneumatic CD Perla Shoemaker DO Jan 28, 2017 11:14 Perla Shoemaker DO Jan 28, 2017 11:14
[2017-01-28 11:22] LABS: Unsaturated Iron Binding 43.2 ug/dL
--- NOTE | 2017-01-28 11:47 | NUR ---
labs/right arm pain repeat labs draw via IJMg GILMER. consent for blood transfusion signed. patient still c/o intermittent right arm pain, Dr Shoemaker aware. U/S already ordered. patient stated, "I think it might be my rotator cuff. I've had problems with it." continue to monitor.
--- NOTE | 2017-01-28 12:40 | NUR ---
Social Work Note: Readiness for Discharge Data& Assessment: Per MD pt is getting closer to being medically ready for discharge. Pt will be undergoing a blood transfusion this afternoon and expected to be medically ready for discharge tomorrow. SW confirmed with [facility] that they are ready to accept her back their facility tomorrow. SW met with pt at bedside to confirm discharge plan and assess for any unmet needs. Pt explained she is anxious to begin rehab again as she was close to being discharged home from the SNF prior to this hospitalization, but feels she has lost a lot of her progress over the past few weeks. Pt denies any other needs. No other discharge needs identified. SW to continue to follow. Plan:Anticipated discharge to [facility] when medically ready via [employer] Transport Wheelchair van. Pt denies any other needs. No other discharge needs identified. SW to continue to follow. JAMA Nieto
--- NOTE | 2017-01-28 12:43 | NUR ---
DONTAE Signed JAMA Nieto
[2017-01-28] MEDS: 0.9% Sodium Chloride 250 ML IV SCH (13:19)
--- NOTE | 2017-01-28 13:54 | DRSVH ---
PROCEDURE: US VENOUS ARM DUPLEX UNILATERAL, RIGHT INDICATIONS: swelling, heat, pain TECHNIQUE: Real-time imaging, as well as color and pulse Doppler interrogation, was performed of the right upper extremity deep veins from the inferior neck to the antecubital fossa. COMPARISON: None. FINDINGS: The internal jugular vein and subclavian vein were not well visualized. Solid portions of t he axillary and brachial veins are free of intraluminal thrombus. Where physically possible, the vei ns are normally compressible. Color and pulse Doppler demonstrate normal intraluminal flow, with exp ected phasicity and pulsatility. Additional scanning of basilic veins of the superficial system demo nstrate normal compressibility, without thrombus. The cephalic vein was not visualized. IMPRESSION: Limited study. No evidence for deep vein thrombosis in the visualized deep and superficia l veins of the right upper extremity. Dictated by: Abigail Mittal M.D. on 01/28/2017 at 13:51 Approved by: Abigail Mittal M.D. on 01/28/2017 at 13:53
--- NOTE | 2017-01-28 17:22 | NUR ---
Mobility/blood transfusion Today patient refused to get OOB with PT. repeated declined position changes, turning, despite repeated education on the importance of frequent position changed to help prevent further skin breakdown. one unit of PRBC's transfused this afternoon. patient tolerated well. denies fever/chills, SOB. continue to monitor, continue to encourage increased mobility.
[2017-01-29] MEDS: Heparin 5,000 Unit/mL Inj SUBQ SCH ×3 (01:03→16:46)
[2017-01-29 05:00] VITALS: BP_SYST 100; BP_SYST 131; BP_DIAS 65; BP_DIAS 80; PULSE 77; PULSE 89; RESP 16; O2SAT 95; O2SAT 96
--- NOTE | 2017-01-29 06:35 | NUR ---
NOC- PT has been sleeping most of the night.SHE continues to have stool that appears to be cdiff. WIll have day RN ask MD to recheck stool. SHe was incontinent 3 times with green, mucousy stool. Her groin and deepali area are extremely macerated and painful. We applied nystatin and calmaseptin multiple times. She allowed us to clean her, but it hurts her badly. PT medicated once for BTP with good relief. V/S WNL over noc. Some drainage to RLE, but it is to be changed by wound RN today. Adequate UO. PT refuses to move, but has been appropriate other ways.
[2017-01-29 07:01] LABS: Magnesium 1.6 mg/dL (1.6-2.6)
[2017-01-29] MEDS ORDERED: Potassium Chloride 20 mEq SR Tablet PO ONE (07:25)
[2017-01-29 07:30] LABS: BASOPHILS % (AUTO) 0.6 % (0-3); EOSINOPHILS % (AUTO) 1.8 % (0-5); MONOCYTES % (AUTO) 13.7 % (4-12); Mean Corpuscular Hemoglobin 29.7 pg (27.0-35.0); Mean Corpuscular Volume 90.2 fL (81-100); NEUTROPHILS % (AUTO) 61.5 % (40-74); Platelet Count 261 bil/L (150-400)
[2017-01-29] MEDS ORDERED: Magnesium Sulf 2 Gm/50mL Water 2 GM in IV Premix 1 EACH IV ONE (07:40)
[2017-01-29] MEDS: Potassium Chloride 20 mEq SR Tablet PO SCH ×2 (08:30→20:05)
[2017-01-29] MEDS: oxyCODONE ER 10 mg ER12 Tablet PO SCH ×2 (08:31→20:04)
[2017-01-29] MEDS: Nystatin 100,000 Unit/Gm 15 Gm Powder TOPICAL SCH ×2 (09:26→20:56)
--- NOTE | 2017-01-29 09:46 | DRSVH ---
PROCEDURE: X-RAY CHEST ONE VIEW, PORTABLE ([id number]) INDICATIONS: pulmonary edema follow up TECHNIQUE: One view of the chest was acquired. COMPARISON: [facility], CR, XR CHEST 1VW (PORTABLE), 01/26/2017, 5:28. FINDINGS: Surgical changes and devices: Stable position right IJ CVL. Lungs and pleura: Persistent pulmonary edema and midlung/bibasilar airspace opacification not signifi cantly changed and small bilateral pleural effusions are redemonstrated. Mediastinum: Mediastinal contours appear normal. Heart size is normal. Bones and chest wall: No suspicious bony lesions. Overlying soft tissues appear unremarkable. Mode rate S-shaped scoliosis. IMPRESSION: 1. Stable position of right IJ CVL. 2. Mild edema and/or bibasilar pneumonia similar to prior examination. 3. Small pleural effusions unchanged. Dictated by: Luis E NEWELL Interpreted: Linda Weeks MD on 01/29/2017 at 9:45 Transcribed by: MAURY on 01/29/2017 at 9:46 Approved by: Linda Weeks M.D. on 01/29/2017 at 16:46
[2017-01-29] MEDS: 0.9% Sodium Chloride 250 ML IV SCH (10:45)
[2017-01-29 13:48] VITALS: BP 107/70; PULSE 75; RESP 18; O2SAT 91
--- NOTE | 2017-01-29 16:58 | NUR ---
NUTRITION FOLLOW UP: ASSESS: 66 YO F admitted with septic shock and severe C. diff colitis, and spontaneous bacterial peritonitis s/p paracentesis. Pt is s/p laparotomy with lysis of adhesions and open repair of umbilical hernia. She is on a general diet. Pt doesn't order large meals but does drink whole milk at all meals and frequently snacks on food that is stocked on the floor. Because pt is eating snacks along with small meals her PO intake may be a bit better than what is recorded. PMHx: Arthritis, COPD, CVA, Pneumonia, Lupus, TIA, anemia, osteoporosis, GERD, Tubal ligation, carpal tunnel, left hip repair. LABS: Reviewed. K+ 2.9, Cr .43, Ca 7.0, Alb 2.7. MEDS: Reviewed. GI: BM x 3 (01/29) SKIN: Stage II PU's on sacrum and buttocks; PU on right upper calf per WC. WT: 79.1 kg (wt changes likely fluid related), BMI: 28.1 kg/m2, Admit Wt: 62.5 kg Previous Admit (12/16/16): 77.5 kg, IBW: 65.9 kg DIET: General. Pt eats lots of snacks along with small meals. PO intake is now reported at 50% of meals. ESTIMATED NEEDS: COPD, wound Calorie: 7381-2218 kcal/day (30-40 kcal/kg BW) Protein: 80-120 g/day (1.2-1.8 g/kg BW) NUTRITION DIAGNOSIS: 1) Increased nutrient needs related to wound healing and chronic illnesses as evidenced by ongoing treatment for wound on right leg, COPD and GI surgery - PERSISTS. 2) Inadequate oral intake related to GI upset as evidenced by C. Diff positive and minimal PO intake x 13 days - IMPROVING. NUTRITION INTERVENTION: 1) Continue to encourage pt to eat foods that she likes and encourage pt to order meals. MONITOR/EVALUATE: PO intake, weight, GI, wounds, labs, nutrition status, POC. Follow per moderate nutrition risk guidelines.
--- NOTE | 2017-01-29 17:50 | PCM.PNMED ---
Subjective Date of Service Jan 29, 2017 Subjective She was transfused one PRBC yesterday. Continues to have hypokalemia , low magnesium, worsening contraction alkalosis. Discontinue Lasix. Continues to have watery diarrhea, 3 episodes overnight. C. difficile tested today negative. Imodium started. Afebrile Exam Vital Signs Vital Sign - Last Date Time Temp Pulse Resp B/P Pulse Ox O2 Delivery O2 Flow Rate FiO2 01/29/17 17:00 Supplement Oxygen 01/29/17 13:48 36.3 75 18 107/70 91 01/28/17 15:01 2.00 Intake and Output 01/28/17 01/28/17 01/29/17 Cumulative From/Thru 15:00 23:00 07:00 01/10/17 15:14 - 01/29/17 05:31 Intake Total 200 ml 1760 ml 100 ml 30312 ml Output Total 2200 ml 300 ml 1200 ml 38708 ml Balance -2000 ml 1460 ml -1100 ml 92755 ml Intake Oral 200 ml 400 ml 100 ml 70984 ml IV Total 1060 ml 73712 ml Packed Cells 300 ml 300 ml Output Urine Total 2200 ml 300 ml 1200 ml 31150 ml Urine/Stool Mix 1 ml Emesis 850 ml # Bowel Movements 1 3 75 Exam Gen.: No acute distress laying in bed HEENT:alopecia noted Heart: Regular rate and rhythm no S3-S4 sounds Lungs: Clear to auscultation anteriorly no crackles or wheezes Abd: normal bowel sounds, steristrips over surgical incisions, mild pain around RLQ. Extremities: Right lower leg wrapped in dressings Psych: Negative for anxiety Neuro: no focal deficits Mendes in place IVs and Medications Medications Reviewed: Medications were reviewed in detail Lab and Diagnostics Result Diagram: 01/29/1761401/29/17614 Microbiology Assessment & Plan 66 year old female admitted for acute c-diff colitis with stay in the ICU x2. Downgraded from ICU 01/22/19. Antibiotics discontinued after 2 week course. Pulmonology continues to fall secondary to worsening of her chest x-ray increase in edema and shortness of breath. Possible etiologies include pneumonia, SPEP, or iatrogenic. Diagnostic paracentesis showed no organisms however did show leukocytosis of 170 (while this does not meet criteria could be from a pulmonary cause). # Hypokalemia/contraction alkalosis due to overdiuresis,not poa -k 2.9, magnesium 1.6, bicarbonate 35, Patient euvolemic. Discontinued Lasix. Repeleted electrolytes # Pulmonary edema, most likely secondary to fluid administration and decreased urinary output. Resolved - Chest x-ray showed Edema and increasing bilateral airspace opacifications suggestive of worsening pulmonary edema and/or pneumonia. - White count normalized, pro-calcitonin continues to trend down last result yesterday 0.2 from peak of 32.85 - Per ID consult all antibiotics discontinued - on lasix 40 bid - Continue to monitor #Acute on chronic anemia requiring transfusion,poa - likely due to chronic disease: Iron panel consistent with chronic disease, B12 , folate ordered. One unit of blood is transfused on 01/28. Follow-up H&H hemoglobin came up appropriately # Recurrent Septic shock, first from c-diff colitis and again from presumed SBP ; Present on admission; resolved - The patient had recurrent hypotension postoperatively and the norepinephrine drip was resumed. - She is now off the norepinephrine since 01/22 - Currently improving # Severe acute C. difficile Colitis: poa; improved - though today having continued bouts of diarrhea causing acute hypokalemia - CT scan on January 17 indicated toxic megacolon. - appreciate surgery consult. will f/u w/ recs. Dr. Cortez performed laparotomy without apparent colitis. - appreciate ID consult also. will f/u w/ recs - Fidaxomicin finished 01/24. observed off antibiotics x 1 more day per ID, Dr. Lopez - She is continuing to have diarrhea today C. difficile tested today 01/29 and negative. Started Imodium. # Dyspnea, acute on chronic. not poa. Resolved - CXR 01/24/17 showing: "Edema and increasing bilateral airspace opacifications suggestive of worsening pulmonary edema and/or pneumonia." - appreciate pulmonology consult. will f/u w/ recs - Discontinued IV Lasix # Possible SBP vs possible pneumonia; npoa; improving - Diagnostic paracentesis revealing no organisms but a leukocytosis of 170, although this does not meet criteria; other cause could be pulmonary although that is also felt to be less likely - Stopped Meropenem on 01/23 per ID recs - unclear etiology for patient's new onset abdominal ascites. Probably Due to presenting sepsis and fluid overload earlier. # Acute hypokalemia and hypomagnesemia, likely 2/2 to loose stool above and overdiuresis - replete and followup: Patient will decide for clinic this morning and needed repletion, 2 g of mag sulfate IV was also given # Maggi UTI; npoa; ongoing - Pt is not symptomatic - Consider treating if symptoms arise # Sacral decubitus ulcer, right upper tibial area decubitus ulcer, stage II, present on admission - Wound care ordered for this chronic and ongoing problem. # Urinary tract infection, acute. Was treated with antibiotics, had Escherichia coli 100,000 CFU's. Antibiotic course finished. Resolved. # Elevated troponin : Likely due to hypotension /septic shock . Patient has no angina - Follow clinically, no workup for ischemic cardiac disease at this time # Acute renal failure, POA. Resolved. # Right leg wound, stage III, present on admission. - Wound care ordered for this ongoing problem. # Acute metabolic encephalopathy, POA. Resolved # Neuropathy chronic, - Continue gabapentin - Minimize opioid use Dispo: Likely SNF in 1-2 days pending improved electrolytes. remaining stable off of Abx VTE Mechanical Devices: Intermittant Pneumatic CD Hiro Norwood MD Jan 29, 2017 17:50
--- NOTE | 2017-01-29 19:23 | NUR ---
BMs Pt had 2 large liquid BMs this shift. Pt refused to get up with PT, did exercises in bed with PT. Stool sample sent, C-diff negative, Imodium given
[2017-01-29 19:40] VITALS: BP 100/62; PULSE 90; RESP 17; O2SAT 95
[2017-01-29 20:01] VITALS: BP 104/64; PULSE 88; RESP 18; O2SAT 92
[2017-01-29 23:52] VITALS: BP 98/56; PULSE 85; RESP 17; O2SAT 97
[2017-01-30] MEDS: Heparin 5,000 Unit/mL Inj SUBQ SCH ×2 (00:13→09:12)
[2017-01-30 05:01] VITALS: BP 107/65; PULSE 82; RESP 17; O2SAT 97
--- NOTE | 2017-01-30 06:36 | NUR ---
NOC PT continues to have loose stools, but it is bulking up a little with last BM due to loperamide. PT has taken 3 doses total. Medicated once for BTP. Dressing changed to RLE this am per wound care order. THis is supposed to be a QD dressing. PT continues to refused turns and has how own ideas. V/S WNL. PT eager for d.c.
[2017-01-30] MEDS ORDERED: Potassium Chloride 20 mEq SR Tablet PO ONE (08:45)
[2017-01-30] MEDS: oxyCODONE ER 10 mg ER12 Tablet PO SCH (09:11)
[2017-01-30] MEDS: Potassium Chloride 20 mEq SR Tablet PO SCH (09:11)
[2017-01-30] MEDS: Nystatin 100,000 Unit/Gm 15 Gm Powder TOPICAL SCH (09:12)
--- NOTE | 2017-01-30 10:31 | PCM.DIMED ---
Discharge Instructions Date of Service Jan 30, 2017 Dates of Hospitalization Jan 10, 2017 at 20:31 Discharge Diagnosis Discharge Diagnosis # Recurrent Septic shock, first from c-diff colitis and again from presumed SBP ; Present on admission; resolved # Hypokalemia/contraction alkalosis due to overdiuresis,not poa # Pulmonary edema, most likely secondary to fluid administration and decreased urinary output. Resolved #Acute on chronic anemia requiring transfusion,poa - likely due to chronic disease: # Severe acute C. difficile Colitis: poa; resolved # Possible SBP vs possible pneumonia; npoa; improving # Acute hypokalemia and hypomagnesemia, likely 2/2 to loose stool above and overdiuresis # Asymptomatic Maggi UTI; npoa; ongoing # Sacral decubitus ulcer, right upper tibial area decubitus ulcer, stage II, present on admission # Urinary tract infection, acute. Was treated with antibiotics, had Escherichia coli 100,000 CFU's. Antibiotic course finished. Resolved. # Elevated troponin : Likely due to hypotension /septic shock . # Acute renal failure, POA. Resolved. # Right leg wound, stage III, present on admission. # Acute metabolic encephalopathy, POA. Resolved # Neuropathy chronic, Diet Low fat, Low Sodium, Heart Healthy Activity Other (continue physical therapy at [facility] facility ) Call your provider Shortness of breath Patient Instructions you were hospitalized with septic shock requiring pressor support due to C. difficile colitis. You underwent laparoscopy for suspected toxic megacolon but was negative.You had umbilical hernia repair. You completed antibiotics for UTI and C. difficile colitis. Please continue probiotics. Follow-up plan Please follow-up with PCP in 1 week. Follow-up Provider: Ellie Rabago Follow-up with PCP in: 1 week Hiro Norwood MD Jan 30, 2017 10:31
[2017-01-30] MEDS: 0.9% Sodium Chloride 250 ML IV SCH (10:45)
--- NOTE | 2017-01-30 11:20 | NUR ---
BEAR REMOVAL Removed patient's indwelling bear catheter @ 0915. Patient was able to void by 1100 without any problem. R IJ catheter also removed by IV therapy.
[2017-01-30] MEDS ORDERED: POTA20TA16 PO (11:29)
[2017-01-30] MEDS ORDERED: FUR20 PO (11:29)
[2017-01-30] MEDS ORDERED: LACT1CAP65 PO (11:29)
[2017-01-30] MEDS ORDERED: LOPE2CAP PO (11:29)
--- NOTE | 2017-01-30 11:39 | NUR ---
Faxed orders to [facility] [place], patient is returning to them. TECHNOLOGY SALES SPECIALIST has spoke with [facility] [place] and they arranged transport for 1400.
--- NOTE | 2017-01-30 12:07 | NUR ---
Social Work Note - Discharge ACTIVITIES OFFICER met with pt - pt identifies that she is able to d/c today and is planning to return to [facility]. She denies any questions - states that she has already talked with her friends and denies needing any further follow up. TRACKMOBILE OPERATOR faxed d/c instructions to [facility]. ACTIVITIES OFFICER spoke with Kamila at [facility] [phone] who states that they have are able to accept him with Dr Higgins to follow. Johanne set up transport [facility]. ACTIVITIES OFFICER updated RN - no other needs identified. Plan: Return to [facility] (A) Ronaldo by reza at 1400.
--- NOTE | 2017-01-30 14:18 | PCM.DC.MED ---
Discharge Summary Date of Service Jan 30, 2017 Dates of Hospitalization Date of Hospital Admission Jan 10, 2017 at 20:31 Date of Discharge: Jan 30, 2017 Providers: Admitting Physician: Rolando Hadley MD Primary Care Physician: Ellie Rabago Attending Physician: Rolando Hadley MD Diagnosis at Time of Discharge Diagnosis at Time of Discharge # Recurrent Septic shock, first from c-diff colitis and again from presumed SBP ; Present on admission; resolved # Hypokalemia/contraction alkalosis due to overdiuresis,not poa # Pulmonary edema, most likely secondary to fluid administration and decreased urinary output. Resolved #Acute on chronic anemia requiring transfusion,poa - likely due to chronic disease: # Severe acute C. difficile Colitis: poa; resolved # Possible SBP vs possible pneumonia; npoa; improving # Acute hypokalemia and hypomagnesemia, likely 2/2 to loose stool above and overdiuresis # Asymptomatic Maggi UTI; npoa; ongoing # Sacral decubitus ulcer, right upper tibial area decubitus ulcer, stage II, present on admission # Urinary tract infection, acute. Was treated with antibiotics, had Escherichia coli 100,000 CFU's. Antibiotic course finished. Resolved. # Elevated troponin : Likely due to hypotension /septic shock . # Acute renal failure, POA. Resolved. # Right leg wound, stage III, present on admission. # Acute metabolic encephalopathy, POA. Resolved # Neuropathy chronic, Consultations ID Dr Lopez surgery Dr Cortez Procedures XRay, CTs & MRIs PROCEDURE: CT ABDOMEN AND PELVIS WITH CONTRAST ([id number]) INDICATIONS: ILEUS/ABSCESS? IMPRESSION: 1. Small right and moderate left pleural effusion which is new when compared to study dated 01/10/17. 2. Large amount of abdominopelvic ascites, new when compared with the study dated 01/10/17. 3. Severe, diffuse colitis markedly increased in severity when compared with the prior study. No findings to suggest pneumatosis or pneumoperitoneum. Given the history of C. difficile, these findings are suspicious for toxic megacolon. These findings were discussed with Dr. Everett at 3:06 PM on 01/16/17. Dictated by: Abigail Mittal M.D. on 01/16/2017 at 14:58 PROCEDURE: CT ABDOMEN AND PELVIS WITHOUT CONTRAST ([id number]) INDICATIONS: ABDOMEN PAIN,SEPTIC IMPRESSION: 1. Diffuse colonic wall thickening consistent with colitis. Differential diagnoses include infectious colitis, pseudomembranous colitis, inflammatory disease and ischemic colitis. Recommend clinical correlation. 2. There is soft tissue stranding in the right abdomen primarily around the cecum. The appendix and terminal ileum are normal. 3. Atherosclerosis in the abdominal aorta. The distal aortic lumen is mildly narrowed just above the bifurcation. 4. Small right effusion. 5. Distended gallbladder with possible tiny gallstones. 6. A couple of hyperdense nodules in the inferior pole of the left kidney, probably small hyperdense cysts. Recommend nonurgent renal ultrasound to confirm cystic nature when feasible. Dictated by: Gisella Montana M.D. on 01/10/2017 at 17:41 PROCEDURE: US VENOUS ARM DUPLEX UNILATERAL, RIGHT INDICATIONS: swelling, heat, pain IMPRESSION: Limited study. No evidence for deep vein thrombosis in the visualized deep and superficial veins of the right upper extremity. Dictated by: Abigail Mittal M.D. on 01/28/2017 at 13:51 Cardiac Echo Impression nterpretation Summary 01/22/17 The left ventricle is normal in size. The left ventricular ejection fraction is grossly normal. Regional wall motion abnormalities cannot be excluded due to limited visualization. The right ventricle grossly appears normal in size with probable normal systolic function. The right ventricular systolic pressure is estimated at 35 mmHg assuming a right atrial pressure of 3 mm Hg. Both atria are normal in size. There is no significant valvular heart disease. The aortic root is not well visualized. The ascending aorta is at the upper limits of normal in size. There is no pericardial effusion. There is a moderate left-sided pleural effusion. Invasive Procedures DATE OF SURGERY: 01/20/2017 SURGEON: Rolando Cortez MD. [employer] OPERATIONS MANAGER: Emani Parker PA-C. PREOPERATIVE DIAGNOSIS(ES): Recalcitrant Clostridium difficile colitis with need for surgical intervention. POSTOPERATIVE DIAGNOSIS(ES): Probable spontaneous bacterial peritonitis, incidental finding of umbilical hernia. PROCEDURE: Diagnostic laparoscopy, lysis of adhesions, open repair of umbilical hernia. INDICATIONS: This is a 66-year-old woman who was admitted over a week ago with fulminant C. difficile colitis. She initially seemed to respond to treatment for C. diff colitis but then began having increased abdominal tenderness and rising white count over the past 3-4 days. The diagnosis of spontaneous bacterial peritonitis was entertained, her ascites was tapped, and findings were equivocal. She has been on 48 hours of intravenous antibiotics and continues to worsen with increasing abdominal tenderness and a rising white count. She had a CT within the past several days. It was felt to demonstrate toxic megacolon and worse thickening of her colon and there was concern that she had C. difficile colitis that was recalcitrant to standard therapy. She was recommended to go to the operating room for planned laparoscopic possible open surgery with anticipated subtotal colectomy versus diverting loop ileostomy. FINDINGS: 1. assistant store leader was medically necessary for safe performance of the surgery. 2. Approximately 3600 cc of clearish ascites was suctioned off. 3. The patient's colon did not have the appearance of toxic megacolon and in fact appeared quite healthy as if it was responding to the treatment for C. difficile colitis. 4. No other acute inflammatory pathology was identified, specifically no sign of peptic ulcer perforation, appendicitis or cholecystitis as described below. 5. At the end of the procedure it was felt that her abdominal tenderness and rising white count was most likely related to spontaneous bacterial peritonitis and therefore I did not perform any bowel resection nor a loop ileostomy. 6. Patient had an incidental finding of umbilical hernia. At the end of the procedure we repaired this with an 0 Prolene through an open incision. Brief History as per H&P on 10/01/[address] Hadley I want to emphasize that most of the informations were retrieved from the patient`s chart. Patient is lethargic, refractory encephalopathy and cannot participate in review and history taking. The patient is a 66 year old female with history of CVA, COPD, cirrhosis, anemia , and GERD, who was brought to the emergency department by EMS from [facility] for hypotension. The patient has experienced abdominal pain, nausea, vomiting, and diarrhea, for the last 3 days. The patient is currently residing at [facility] for a right lower leg wound. She has been on antibiotics for about 1 week. ER workup showed leukocytosis, acute renal failure and elevated lactic acid. Elevation and septic shock and CT scan of the abdomen showed colitis. Patient is being admitted to the intensive care unit for close follow-up and monitoring Hospital Course 66 year old female admitted for acute c-diff colitis with stay in the ICU x2. Downgraded from ICU 01/22/19. Antibiotics discontinued after 2 week course. Pulmonology continues to fall secondary to worsening of her chest x-ray increase in edema and shortness of breath. Possible etiologies include pneumonia, SPEP, or iatrogenic. Diagnostic paracentesis showed no organisms however did show leukocytosis of 170 (while this does not meet criteria could be from a pulmonary cause). # Recurrent Septic shock, first from c-diff colitis and again from presumed SBP ; Present on admission; resolved - The patient had recurrent hypotension requiring norepinephrine drip - She is now off the norepinephrine since 01/22 - Currently improving # Hypokalemia/contraction alkalosis due to overdiuresis,not poa -k 2.9, magnesium 1.6, bicarbonate 35, Patient euvolemic. Lowered Lasix to 20 mg daily from 40 mg by mouth twice a day. Repeleted electrolytes -Discharged on Lasix 20 mg daily and potassium chloride 20 meq daily # Pulmonary edema, most likely secondary to fluid administration and decreased urinary output. Resolved - Chest x-ray showed Edema and increasing bilateral airspace opacifications suggestive of worsening pulmonary edema and/or pneumonia. - White count normalized, pro-calcitonin continues to trend down last result yesterday 0.2 from peak of 32.85 - Per ID consult all antibiotics discontinued - on lasix 40 bid, lowered the dose to 20 mg by mouth daily #Acute on chronic anemia requiring transfusion,poa - likely due to chronic disease: Iron panel consistent with chronic disease, B12 , folate ordered. One unit of blood is transfused on 01/28. Follow-up H&H hemoglobin came up appropriately # Severe acute C. difficile Colitis: poa; improved - though today having continued bouts of diarrhea causing acute hypokalemia C. difficile is negative on 01/29 - CT scan on January 17 indicated toxic megacolon. - appreciate surgery consult. will f/u w/ recs. Dr. Cortez performed laparotomy without apparent colitis. - appreciate ID consult also. will f/u w/ recs - Fidaxomicin finished 01/24. observed off antibiotics x 1 more day per ID, Dr. Lopez - She is continuing to have diarrhea today C. difficile tested today 01/29 and negative. Started Imodium. # Possible SBP vs possible pneumonia; npoa; improving - Diagnostic paracentesis revealing no organisms but a leukocytosis of 170, although this does not meet criteria; other cause could be pulmonary although that is also felt to be less likely - Stopped Meropenem on 01/23 per ID recs - unclear etiology for patient's new onset abdominal ascites. Probably Due to presenting sepsis and fluid overload earlier. # Acute hypokalemia and hypomagnesemia, likely 2/2 to loose stool above and overdiuresis - replete and followup: Patient will decide for clinic this morning and needed repletion, 2 g of mag sulfate IV was also given # Maggi UTI; npoa; ongoing - Pt is not symptomatic - Consider treating if symptoms arise -Remove Mendes catheter before discharge today. # Sacral decubitus ulcer, right upper tibial area decubitus ulcer, stage II, present on admission - Wound care ordered for this chronic and ongoing problem. # Urinary tract infection, acute. Was treated with antibiotics, had Escherichia coli 100,000 CFU's. Antibiotic course finished. Resolved. # Elevated troponin : Likely due to hypotension /septic shock . Patient has no angina - Follow clinically, no workup for ischemic cardiac disease at this time # Acute renal failure, POA. Resolved. # Right leg wound, stage III, present on admission. - Wound care ordered for this ongoing problem. # Acute metabolic encephalopathy, POA. Resolved # Neuropathy chronic, - Continue gabapentin - Minimize opioid use Dispo: Discharged to [facility] care home facility. remaining stable off Abx Exam Vital Signs (Last) Date Time Temp Pulse Resp B/P Pulse Ox O2 Delivery O2 Flow Rate FiO2 01/30/17 05:01 36.6 82 17 107/65 97 Room Air 01/28/17 15:01 2.00 Exam Gen.: No acute distress laying in bed HEENT:alopecia noted Heart: Regular rate and rhythm no S3-S4 sounds Lungs: Clear to auscultation anteriorly no crackles or wheezes Abd: normal bowel sounds, steristrips over surgical incisions, mild pain around RLQ. Extremities: Right lower leg wrapped in dressings Psych: Negative for anxiety Neuro: no focal deficits Mendes in place Test 01/10/17 15:33 01/11/17 05:00 01/13/17 05:10 01/16/17 16:05 Hemoglobin A1c 5.8% (4.8-5.6) Pro-B-Type Natriuretic Peptide 8399pg/mL (0-301) Troponin T 0.045ug/L (0.0-0.011) Band Neutrophils % 2% (1-5) Cortisol 15.0ug/dL (.) Hold Urine Received (Received) Test 01/17/17 11:15 01/17/17 12:27 01/21/17 03:00 01/21/17 11:15 Prothrombin Time 12.2sec (8.1-12.5) Prothromb Time International Ratio 1.14ratio Body Fluid Source Peritoneal fluid Body Fluid Color Straw (Clear) Body Fluid Appearance Clear Body Fluid WBC 175/mm3 Body Fluid RBC 85/mm3 Body Fluid Polynuclear WBCs 40% Body Fluid Lymphocytes 25% Body Fluid Monocytes 30% Body Fluid Eosinophils 0% Body Fluid Basophils 0% Body Fluid Albumin 0.8g/dL (.) Body Fluid Total Bilirubin < 0.2mg/dL Body Fluid Lactate Dehydrogenase 97U/L Body Fluid Amylase 16U/L Body Fluid Triglycerides 30mg/dL (.) Body Fluid Comment Peritoneal Fluid Glucose 162mg/dL C-Reactive Protein 1.2mg/dL (0.0-0.5) Urine Color Yellow (YELLOW) Urine Appearance Cloudy (CLEAR,HAZY) Urine pH 6.0 (5.0-8.0) Urine Specific Fieldon 1.018 (1.003-1.035) Urine Protein Tracemg/dL (NEG,TRACE) Urine Glucose (UA) Negativemg/dL (NEGATIVE) Urine Ketones Negativemg/dL (NEGATIVE) Urine Occult Blood Small (NEGATIVE) Urine Nitrite Negative (NEGATIVE) Urine Bilirubin Negative (NEGATIVE) Urine Urobilinogen Normalmg/dL (NORMAL) Urine Leukocyte Esterase Moderate (NEGATIVE) Urine RBC 0-2/hpf (0-2) Urine WBC 11-50/hpf (0-5) Urine Epithelial Cells None/hpf (NONE-MOD) Urine Crystals None seen (NONE SEEN) Urine Bacteria Few/hpf (NONE-FEW) Urine Hyaline Casts None/lpf (NONE) Urine Granular Casts None seen (NONE SEEN) Urine Waxy Casts None seen (NONE SEEN) Urine Red Blood Cell Casts None seen (NONE SEEN) Urine White Blood Cell Casts None seen (NONE SEEN) Urine Mucus None seen (None Seen) Urine Trichomonas None seen (NONE SEEN) Urine Yeast Many (NONE SEEN) Urinalysis Comment None Urine Culture Reflexed Indicated Test 01/21/17 11:50 01/22/17 09:30 01/26/17 11:35 01/28/17 05:30 Fungal Antibodies <31pg/mL (.) Lactic Acid Level 1.4mmol/L (0.4-2.0) Hepatitis C Antibody <0.1s/co ratio (0.0-0.9) Iron Level 41ug/dL (35-150) Total Iron Binding Capacity 84ug/dL (250-450) Percent Iron Saturation 49%sat (15-50) Unsaturated Iron Binding 43.2ug/dL Ferritin 846ng/mL (13-150) Vitamin B12 Level 370pg/mL (211-946) Folate 15.9ng/mL (>3.0) Test 01/28/17 11:25 01/29/17 06:15 01/30/17 06:15 Hold Purple Top Tube Received (Received) Hold Stow Top Tube Received (Received) White Blood Count 6.7th/mm3 (3.8-10.1) Red Blood Count 2.96mil/mm3 (3.90-5.20) Hemoglobin 8.8g/dL (12.0-15.6) Hematocrit 26.7% (35.0-46.0) Mean Corpuscular Volume 90.2fL (81-100) Mean Corpuscular Hemoglobin 29.7pg (27.0-35.0) Mean Corpuscular Hemoglobin Concent 33.0% (32.0-37.0) Red Cell Distribution Width 20.2% (12.3-15.4) Platelet Count 261bil/L (150-400) Neutrophils (%) (Auto) 61.5% (40-74) Lymphocytes (%) (Auto) 22.3% (14-46) Monocytes (%) (Auto) 13.7% (4-12) Eosinophils (%) (Auto) 1.8% (0-5) Basophils (%) (Auto) 0.6% (0-3) Phosphorus Level 3.0mg/dL (2.5-4.9) Procalcitonin 0.14ng/mL (0.00-0.08) Sodium Level 141mEq/L (134-144) Potassium Level 3.5mEq/L (3.5-5.2) Chloride Level 98mEq/L (97-108) Carbon Dioxide Level 34mmol/L (18-29) Blood Urea Nitrogen 5mg/dL (8-27) Creatinine 0.43mg/dL (0.57-1.00) Estimat Glomerular Filtration Rate 211mL/min (>59) Glucose Level 88mg/dL (60-99) Calcium Level 7.1mg/dL (8.5-10.1) Magnesium Level 2.1mg/dL (1.6-2.6) Total Bilirubin 0.3mg/dL (0.0-1.2) Aspartate Amino Transf (AST/SGOT) 15U/L (0-50) Alanine Aminotransferase (ALT/SGPT) 5U/L (0-32) Alkaline Phosphatase 48U/L (25-165) Total Protein 4.2g/dL (6.4-8.4) Albumin 2.7g/dL (3.4-5.0) Microbiology Results HOLLY CULT URINE Final 01/12/17-747 Organism 1 ESCHERICHIA COLI U COLONY COUNT/QUANTITY >100,000 CFU/ml Cefazolin-predicts results for the oral agents, cefaclor,cefdinir, cefpodoximen, cefprozil, cefuroximne axetil, cephalexin and loracarbed when used for therapy of uncomplicated UTI's due to E. coli, K. pneumoniae, and Proteus mirabilis. Cefpodoxime, cefdinir and cefuroxime axetil may be tested individually because some isolates may be susceptible to these agents while testing resistant to cefazolin. (CLSI K466-K71 pg 53) 1. ESCHERICHIA COLI M.I.C Interp --------- ------ * AMOXICILLIN/CLAVULATE 16 I * AMPICILLIN >=32 R * CEFAZOLIN (CEPHALOSPORIN) UTI 4 S * CEFEPIME <=1 S * CEFTRIAXONE <=1 S * CEFUROXIME SODIUM 16 I * CIPROFLOXACIN >=4 R * ERTAPENEM <=0.5 S * GENTAMICIN <=1 S * IMIPENEM <=1 S * LEVOFLOXACIN >=8 R * NITROFURANTOIN <=16 S * TETRACYCLINE 2 S * TOBRAMYCIN <=1 S * TRIMETHOPRIM/SULFAMETHOXAZOLE <=20 S Microbiology HOLLY C DIF PCR STOOL Final 01/11/17-1320 CDIF DNA BY PCR POSITIVE TIME CALLED: 1318 DATE CALLED: 01/11/17 FLOOR/DOCTOR: [facility]/YONI Celeste CALLED BY: VS REFERENCE INTERVAL NEGATIVE Organism 1 POS FOR CDIF TOXIN Specimen: [id number] Collected: 01/29/17 Status: COMP Req#: [id number] Received: 01/29/17 Source: STOOL Sp Desc : Subm Dr: Hiro Pollard MD Ordered: C DIFF DNA PCR Comments: Collected by Nurse/Unit? Y/N Y Procedure Result Verified Site Microbiology HOLLY C DIF PCR STOOL Final 01/29/17-1206 CDIF DNA BY PCR NEGATIVE REFERENCE INTERVAL NEGATIVE Discharge Medications Discharge Medications Alendronate Sodium (Fosamax) 70 Mg Tablet 70 MG PO WEEKLY (Reported) SUNDAYS Aspirin Chew (Aspirin Chew) 81 Mg Chew 81 MG PO DAILY (Reported) Bisacodyl (Dulcolax) 5 Mg Tablet.dr 5 MG PO BID (Reported) Calcium Carbonate (Calcium Carbonate) 200 Mg Tab.chew 500 MG PO TIDWM Prescribed by: PAT GARCIA MD Cholecalciferol (Vitamin D3) (Vitamin D3) 1,000 Unit Tab.chew 1,000 UNIT PO DAILY (Reported) Fluticasone/Salmeterol (Advair 250-50 Diskus) 60 Puff/Inh Disk 1 PUFF IH BID ( Reported) Furosemide (Furosemide) 20 Mg Tab 20 MG PO DAILY Prescribed by: HIRO POLLARD MD Gabapentin (Neurontin) 400 Mg Capsule 400 MG PO QID Prescribed by: ALBERT GUERRA DO Lactobacillus Acidophilus (Probiotic) 1 Each Capsule 1 EACH PO DAILY Prescribed by: HIRO POLLARD MD Loratadine (Claritin) 10 Mg Capsule 10 MG PO DAILY (Reported) Multivitamin (Multivitamins) 1 Each Capsule 1 EACH PO DAILY (Reported) Oxycodone ER (Oxycontin) 10 Mg Tab.er.12h 10 MG PO BID Prescribed by: PAT GARCIA MD Potassium Chloride (Potassium Chloride) 20 Meq Tab.er.prt 20 MEQ PO DAILY Prescribed by: HIRO POLLARD MD As needed Acetaminophen (Acetaminophen) 325 Mg Capsule 650 MG PO Q4 PRN PRN For Pain ( Reported) Albuterol HFA (Proair HFA) 8.5 Gm Hfa.aer.ad 2 PUFFS INH Q4H PRN PRN For Shortness of Breath (Reported) Loperamide (Loperamide) 2 Mg Capsule 2 MG PO Q6H PRN PRN For Diarrhea or Loose Stool Prescribed by: HIRO POLLARD MD Ondansetron (Ondansetron) 4 Mg Tablet 4 MG PO Q8H PRN PRN For Nausea (Reported) Sennosides (Senna) 8.6 Mg Tablet 17.2 MG PO BID PRN PRN For Constipation Prescribed by: ALBERT GUERRA DO diphenhydrAMINE HCl (Benadryl) 25 Mg Capsule 25 MG PO Q4H PRN PRN For Itching Prescribed by: ALBERT GUERRA DO oxyCODONE (oxyCODONE) 5 Mg Tablet 5 MG PO Q4H PRN PRN For Moderate Pain Prescribed by: PAT GARCIA MD Followup Plan Disposition: [facility] nursing facility, [facility] Follow-up plan Please follow-up with PCP in 1 week. Discharge Diet: Low fat, Low Sodium, Heart Healthy Discharge Activity: Other (continue physical therapy at care home facility ) Patient Instructions you were hospitalized with septic shock requiring pressor support due to C. difficile colitis. You underwent laparoscopy for suspected toxic megacolon but was negative.You had umbilical hernia repair. You completed antibiotics for UTI and C. difficile colitis. Please continue probiotics. Follow-up Provider: Ellie Rabago Follow-up with PCP in: 1 week Time spent 40 minutes coordinating discharge copies to: Ellie Rabago Melaku MD Jan 30, 2017 14:18 copies to: Ellie Rabago Melaku MD Jan 30, 2017 14:18
--- NOTE | 2017-01-30 14:31 | NUR ---
DISCHARGE Provided incontinent care prior to patient discharge. IJ catheter was removed by IV therapy. Patient stood with FWW at edge of bed with 2 person assist, moved bed and placed wheelchair directly behind patient. Patient was unable to take steps with FWW. Patient left facility with transport vehicle to [facility]. Report called to LN at [facility].
--- NOTE | 2017-01-30 14:57 | NUR ---
spiritual care: follow brief visit. pt shared her discharge plan, desire to get back to her familiar rehab schedule
== END 2017-01-30 14:08 | DRG 853 ==
LOC: SED 15:08 → EDBD 15:08 → EDSEX 15:08 → EDUNIT# 15:08 → CCU 20:31 → PCC 01-16 08:30 → CCU 01-18 10:04 → PCC 01-18 10:16 → CCU 01-20 17:49 → PCC 01-20 18:08 → CCU 01-20 20:15 → PCC 01-22 13:57 → MPC 01-22 15:55 → OSC 01-26 15:54 → UNDODISIN 01-30 12:40
PROVIDERS: ADMIT Internal Medicine; ATTEND Internal Medicine
PROC: 4A033R1 Measurement of Arterial Saturation, Peripheral, Percutaneous Approach (ICD-10-PCS; 2017-01-10)
PROC: 0W9G3ZZ Drainage of Peritoneal Cavity, Percutaneous Approach (ICD-10-PCS; principal; 2017-01-17)
PROC: 0WQF0ZZ Repair Abdominal Wall, Open Approach (ICD-10-PCS; 2017-01-20)
PROC: 0DNS4ZZ (ICD-10-PCS; 2017-01-20)
PROC: 30233N1 Transfusion of Nonautologous Red Blood Cells into Peripheral Vein, Percutaneous Approach (ICD-10-PCS; 2017-01-28)
DX: A41.9 Sepsis, unspecified organism (principal); R65.21 Severe sepsis with septic shock; G92 Toxic encephalopathy; K65.2 Spontaneous bacterial peritonitis; J81.0 Acute pulmonary edema; A04.7 Enterocolitis due to Clostridium difficile; E87.2 Acidosis; N17.9 Acute kidney failure, unspecified; N39.0 Urinary tract infection, site not specified; B37.49 Other urogenital candidiasis; K42.9 Umbilical hernia without obstruction or gangrene; J44.9 Chronic obstructive pulmonary disease, unspecified; Z86.73 Personal history of transient ischemic attack (TIA), and cerebral infarction without residual deficits; K21.9 Gastro-esophageal reflux disease without esophagitis; F17.210 Nicotine dependence, cigarettes, uncomplicated; L89.152 Pressure ulcer of sacral region, stage 2; G62.9 Polyneuropathy, unspecified; B96.20 Unspecified Escherichia coli [E. coli] as the cause of diseases classified elsewhere; K66.0 Peritoneal adhesions (postprocedural) (postinfection); E87.6 Hypokalemia; D64.9 Anemia, unspecified; L89.312 Pressure ulcer of right buttock, stage 2

== ENCOUNTER 2017-02-13 02:13 | Emergency (ER) | payer MEDICARE, MEDICAID ==
[~2017-02-13 02:13] MED LIST changes: +ACET325C PO; +ADV250INH IH; +ALEN70TA2 PO; +BISA-67 PO; +CHOL10008 PO; -CIPR-231 PO; -FLUT9.9S NASAL; +LACT1CAP65 PO; -LINE600T2 PO; +LOPE2CAP PO; +LORA10CA PO; -Loratadine PO; -MYCO TOPICAL; +ONDA-53 PO; +POTA20TA16 PO; -Senna/Docusate Sodium PO
[2017-02-13 02:19] VITALS: BP 89/48; PULSE 85; RESP 14; O2SAT 96
--- NOTE | 2017-02-13 02:19 | ED.REPORT ---
HPI-Altered Mental Status Date of Service Feb 13, 2017 ED Provider: Troy Telles MD 67 year old female with a history of CVA and TIA presents to the ER via EMS from [facility] facility due to confusion and decreased level of consciousness. Patient reports chest pain, abdominal pain, and bilateral flank pain. Fluids and antibiotics given at [facility] prior to arrival. Currently she is being treated for C. diff with Flagyl and ciprofloxacin. It is difficult to obtain a coherent history due to patient's mental status. Nursing Notes Stated Complaint: DECREASED LOC Nursing Notes Reviewed: Yes Allergies: Uncoded Allergies: HAYFEVER (Allergy, Unknown, 06/11/16) Scheduled Alendronate Sodium (Fosamax) 70 Mg Tablet 70 MG PO WEEKLY SUNDAYS Aspirin Chew (Aspirin Chew) 81 Mg Chew 81 MG PO DAILY Bisacodyl (Dulcolax) 5 Mg Tablet.dr 5 MG PO BID Calcium Carbonate (Calcium Carbonate) 200 Mg Tab.chew 500 MG PO TIDWM Cholecalciferol (Vitamin D3) (Vitamin D3) 1,000 Unit Tab.chew 1,000 UNIT PO DAILY Fluticasone/Salmeterol (Advair 250-50 Diskus) 60 Puff/Inh Disk 1 PUFF IH BID Furosemide (Furosemide) 20 Mg Tab 20 MG PO DAILY Gabapentin (Neurontin) 400 Mg Capsule 400 MG PO QID Lactobacillus Acidophilus (Probiotic) 1 Each Capsule 1 EACH PO DAILY Loratadine (Claritin) 10 Mg Capsule 10 MG PO DAILY Multivitamin (Multivitamins) 1 Each Capsule 1 EACH PO DAILY Oxycodone ER (Oxycontin) 10 Mg Tab.er.12h 10 MG PO BID Potassium Chloride (Potassium Chloride) 20 Meq Tab.er.prt 20 MEQ PO DAILY Scheduled PRN Acetaminophen (Acetaminophen) 325 Mg Capsule 650 MG PO Q4 PRN PRN For Pain Albuterol HFA (Proair HFA) 8.5 Gm Hfa.aer.ad 2 PUFFS INH Q4H PRN PRN For Shortness of Breath Loperamide (Loperamide) 2 Mg Capsule 2 MG PO Q6H PRN PRN For Diarrhea or Loose Stool Ondansetron (Ondansetron) 4 Mg Tablet 4 MG PO Q8H PRN PRN For Nausea Sennosides (Senna) 8.6 Mg Tablet 17.2 MG PO BID PRN PRN For Constipation diphenhydrAMINE HCl (Benadryl) 25 Mg Capsule 25 MG PO Q4H PRN PRN For Itching oxyCODONE (oxyCODONE) 5 Mg Tablet 5 MG PO Q4H PRN PRN For Moderate Pain General Time Seen by MD: 02:19 [facility] Chief Complaint Other (Decreased LOC) Hx Obtained From: EMS Arrived By: Ambulance Sudden in Onset?: No Onset Occurred: Just prior to arrival Symptom Duration: Since onset Location: : Abdomen: Chest Quality: Painful Severity: Current: Moderate Severity: Maximum: Moderate Associated with: Reports: Chest pain Additional Notes: Abdominal pain Flank pain, bilateral Related History: Reports CVA/TIA Similar Sx Previous: Yes Past Medical History Past Medical History Arthritis h/o pneumonia CVA 1989 COPD Lupus Cirrhosis Anemia TIA (1989) Osteoporosis Uropathy h/o rectovaginal fistula Tubal ligation Gastroesophogeal reflux Reports: Obesity Past Surgical History Right carpal tunnel Left hip repair ORIF l ankle Family History Noncontributory Smoking History Current Every Day Smoker Social History Hx of alcoholism. Living at [facility]. Alcohol Use: Denies alcohol use Other Social History: Local resident Ambulatory Status Wheelchair Review of Systems ROS is limited due to altered mental status. Cardiovascular: Reports: Chest pain GI: Reports: Abdominal pain Neurologic: Reports: Change LOC Psychiatric: Reports: Change mental status, Confusion Complete sys rev & neg: except as marked. Male: Reports Flank pain Physical Exam Physical Exam Notes: abd distended, tender, reactive r>L Initial Vital Signs Vital Signs (First) Date Time Temp Pulse Resp B/P Pulse Ox O2 Delivery O2 Flow Rate FiO2 02/13/17 02:19 36.9 85 14 89/48 96 Room Air Initial VS: Reviewed Extremities: Vascular intact, Neuro intact, No swelling, No tenderness Skin: Warm, Dry, No cyanosis General/Constitutional: Well developed, Well nourished Alertness: Positive: Confused Awake and arousable, eyes closed. Head / Eyes: Atraumatic, Normocephalic Neck: Atraumatic, Supple, No meningismus, Full range of motion, No swelling, Non-tender, No midline vertebral tend, No masses, No carotid bruit, Thyroid NL Respiratory / Chest: Breath sounds NL, Breath sounds = bilat, No respiratory distress, No rales, No rhonchi, No wheezing Cardiovascular: Heart rate NL, Regular rhythm, Heart sounds NL, Peripheral circulation NL Neurologic: Speech NL, No motor deficits, No sensory deficits Mental Status: Positive: Confused Tenderness/Guarding/Rebound: Positive: Tender diffuse Bowel Sounds / Distention: Positive: Distention moderate Reactive to palpation, Right > Left. Interpretation & Diagnostics Lab Results Interpretation Result Diagram: 02/13/17 0245 02/13/17 0245 Test 02/13/17 02:45 White Blood Count 16.1th/mm3 (3.8-10.1) Red Blood Count 3.18mil/mm3 (3.90-5.20) Hemoglobin 9.5g/dL (12.0-15.6) Hematocrit 30.3% (35.0-46.0) Mean Corpuscular Volume 95.3fL (81-100) Mean Corpuscular Hemoglobin 29.9pg (27.0-35.0) Mean Corpuscular Hemoglobin Concent 31.4% (32.0-37.0) Red Cell Distribution Width 18.7% (12.3-15.4) Platelet Count 301bil/L (150-400) Neutrophils (%) (Auto) 67% (40-74) Lymphocytes (%) (Auto) 12% (14-46) Monocytes (%) (Auto) 14% (4-12) Eosinophils (%) (Auto) 0% (0-5) Basophils (%) (Auto) 0% (0-3) Band Neutrophils % 5% (1-5) Metamyelocytes % 2% (0-0) Sodium Level 138mEq/L (134-144) Potassium Level 3.7mEq/L (3.5-5.2) Chloride Level 99mEq/L (97-108) Carbon Dioxide Level 25mmol/L (18-29) Blood Urea Nitrogen 51mg/dL (8-27) Creatinine 1.14mg/dL (0.57-1.00) Estimat Glomerular Filtration Rate 68mL/min (>59) Glucose Level 105mg/dL (60-99) Lactic Acid Level 1.0mmol/L (0.4-2.0) Calcium Level 7.9mg/dL (8.5-10.1) Magnesium Level 1.9mg/dL (1.6-2.6) Total Bilirubin 0.4mg/dL (0.0-1.2) Aspartate Amino Transf (AST/SGOT) 10U/L (0-50) Alanine Aminotransferase (ALT/SGPT) 5U/L (0-32) Alkaline Phosphatase 80U/L (25-165) Ammonia 28ug/dL (18-53) Total Protein 5.6g/dL (6.4-8.4) Albumin 2.9g/dL (3.4-5.0) Salicylates Level < 3.0ug/mL (30-250) Acetaminophen Level < 15.0ug/mL Rx (10-25) Alcohols < 10mg/dL (0-10) ECG Interpretation ECG Interpretation: Sinus rhythm, rate 89 PVC Incomplete RBBB Low voltage, precordial leads Time: 03:05 Interpreted by: ED physician X-Ray Chest Interpretation Chest Xray Interpretation: Bilateral pleural effusions. No significant change from prior. View: Portable, 1 view Interpretation / Wet Read by: Wet read ED physician CT Head Interpretation CONCLUSION: Chronic ischemic changes. Electronically signed by Shilo Blum MD Study: Head CT no contrast Interpretation / Wet Read by: Interpret - Radiologist CT Abd / Pelvis Interpretation CONCLUSION: Findings consistent with severe proctocolitis. Air in the endometrial canal which could be due to an incompetent cervix. Please correlate clinically. Electronically signed by Shilo Blum MD Study type: Abdominal CT IV contrast Interpretation / Wet Read by: Interpret - Radiologist Re-Eval/Medical Decision Med Decision/Clinical Course 67-year-old longterm resident referred with altered mental status, reportedly answering questions were refusing to open her eyes and seeming confused. Evaluation here is unrevealing. She complained of some abdominal pain and had her CT repeated, which is unchanged from previous. There is significant ascites and swelling of the colon, generally similar to previous CT, and consistent with her known C. difficile colitis. Repeat stool for C. difficile was sent for PCR evaluation this morning. We could not obtain urine due to a pre-existing enterovesicular fistula, with attempts at [place] yielded only stool. She has a moderate leukocytosis anemia and no other significant findings on her evaluation. CT cranium shows vascular disease and involution consistent with an older age than her current [age]. There being no acute issues requiring hospitalization, she is discharged via ambulance to [facility]. Source of Hx: Old records Consultation : Call Returned at: 04:58 Note: Discussed plan to discharge with [facility] nursing staff. They understand and agree to the plan and will receive the patient. Return precautions given. All other questions addressed. Counseled Regarding: Diagnosis, Lab results, Need for follow-up, When/why to return to ED Patient Discharge & Departure Impression: Primary Impression: Altered mental status Additional Impression: Colitis Disposition: Home Discharge Condition All VS Reviewed: Yes Condition: Stable Referrals: Ellie Rabago (PCP) Scribe Attestation Portions of this note were transcribed by Eric Rivera. I, Dr. Telles, personally performed the history, physical exam and medical decision-making; I reviewed and confirmed the accuracy of the information in the transcribed note. Signed by: Alison Mattson. 02/13/2017 - 05:42 copies to: Ellie Rabago Christopher W MD Feb 13, 2017 02:19 ERIC RIVERA Feb 13, 2017 02:28
[2017-02-13] MEDS ORDERED: 0.9% Sodium Chloride 1,000 ML IV ONE (02:39)
[2017-02-13 02:47] VITALS: BP 92/52; PULSE 87; RESP 16; O2SAT 96
[2017-02-13 03:14] LABS: Mean Corpuscular Hemoglobin 29.9 pg (27.0-35.0); Mean Corpuscular Volume 95.3 fL (81-100); Platelet Count 301 bil/L (150-400)
[2017-02-13 03:38] LABS: Magnesium 1.9 mg/dL (1.6-2.6)
[2017-02-13 03:44] LABS: BASOPHILS % (AUTO) 0 % (0-3); EOSINOPHILS % (AUTO) 0 % (0-5); MONOCYTES % (AUTO) 14 % (4-12); NEUTROPHILS % (AUTO) 67 % (40-74)
[2017-02-13 04:29] VITALS: BP 106/73; PULSE 85; RESP 16; O2SAT 96
[2017-02-13 05:35] VITALS: BP 102/54; PULSE 81; RESP 20; O2SAT 95
[2017-02-13 06:34] VITALS: BP 102/54; PULSE 81; RESP 20; O2SAT 95
--- NOTE | 2017-02-13 08:03 | DRSVH ---
PROCEDURE: CT BRAIN WITHOUT CONTRAST ([id number]) INDICATIONS: altered mental status TECHNIQUE: Noncontrast 4.5 mm thick angled axial sections acquired from the foramen magnum to the vertex, with c oronal reformats. COMPARISON: [facility], CT, CT BRAIN WO CON, 06/11/2016, 9:00. FINDINGS: Image quality: Excellent. CSF spaces: Basal cisterns are patent. No extra-axial fluid collections. The ventricles are symmet estela in size and shape. Brain: No intracranial bleeds or masses. There is mild cerebral volume loss for age, with resultant ventricular and sulcal prominence. There are mild periventricular and deep white matter chronic sma ll vessel ischemic changes. There is intracranial internal carotid artery atherosclerosis. Skull and face: Calvarium and visualized facial bones appear intact, without suspicious lesions. Sinuses: Visualized sinuses and mastoids are clear. IMPRESSION: 1. No acute intracranial abnormalities. 2. Mild cerebral volume loss and chronic microvascular ischemic changes. Dictated by: Gisella Montana M.D. on 02/13/2017 at 8:00 Approved by: Gisella Montana M.D. on 02/13/2017 at 8:02
--- NOTE | 2017-02-13 09:32 | DRSVH ---
PROCEDURE: X-RAY CHEST ONE VIEW, PORTABLE ([id number]) INDICATIONS: altered mental status TECHNIQUE: One view of the chest was acquired. COMPARISON: [facility], CR, XR CHEST 1VW (PORTABLE), 01/29/2017, 8:08. FINDINGS: Surgical changes and devices: None. Lungs and pleura: Interval decrease in bibasilar airspace opacities and small residual pleural effus ions present. No pneumothorax. Mediastinum: Mediastinal contours appear normal. Heart size is normal. Bones and chest wall: No suspicious bony lesions. Overlying soft tissues appear unremarkable. Mode rate S-shaped scoliosis redemonstrated. IMPRESSION: Decreasing bibasilar airspace opacities and small residual pleural effusions. Dictated by: Luis E Coello [facility] Interpreted: Gisella Montana MD on 02/13/2017 at 9:30 Transcribed by: MAZIN on 02/13/2017 at 9:31 Approved by: Gisella Montana M.D. on 02/13/2017 at 11:09
--- NOTE | 2017-02-13 10:03 | DRSVH ---
PROCEDURE: CT ABDOMEN AND PELVIS WITH CONTRAST ([id number]) INDICATIONS: Diffuse abdominal pain. TECHNIQUE: After the administration of intravenous contrast, 5 mm thick sections acquired from the diaphragm to the symphysis. 5 mm coronal and sagittal reformats were acquired. For radiation dose reduction, the following was used: automated exposure control, adjustment of mA and/or kV according to patient andrew abbott. COMPARISON: [facility], CT, CT ABD PELVIS W CON, 01/16/2017, 12:59. FINDINGS: Image quality: Excellent. ABDOMEN: Lung bases: Small right pleural effusion and trace left effusion. Bibasilar atelectasis Heart size i s normal. Small hiatal hernia. Solid organs: Liver and spleen are normal in size and enhancement. Gallbladder is distended, but ot herwise normal. Biliary system is non dilated. Pancreas enhances normally. No adrenal nodules. Ki dneys demonstrate normal size and enhancement, without hydronephrosis. Small low density left renal cortical nodules are noted. Peritoneum and bowel: There is marked diffuse colonic wall thickening with associated increased mucos al enhancement involving the entire colon, as well as rectum. Appendix is normal. Small bowel loops demonstrate normal caliber. There is a small to moderate amount of free fluid. No free air. Nodes and vessels: No retroperitoneal or mesenteric adenopathy by size criteria. Aorta and inferior vena cava are normal in size. Miscellaneous: No ventral hernias. PELVIS: Genitourinary: Bladder wall thickness is normal. Miscellaneous: No inguinal hernias or adenopathy. Bones: No suspicious bony lesions. Mild vertebral body compression fractures at T12 and L1. Old rig ht inferior rib fractures noted. IMPRESSION: 1. Severe diffuse colonic wall thickening consistent with pancolitis. Differential diagnoses include pseudomembranous colitis, other infectious etiology, inflammatory bowel disease and less likely ische clementina. 2. Small to moderate amount of ascites. 3. Small right pleural effusion and trace left effusion. 4. Small hiatal hernia. 5. Mild compression fracture at T12 and L1. No significant discrepancy with the overnight caregiver radiology preliminary report. Dictated by: Gisella Montana M.D. on 02/13/2017 at 9:47 Transcribed by: CÉSAR on 02/13/2017 at 10:02 Approved by: Gisella Montana M.D. on 02/13/2017 at 10:52
== END 2017-02-13 06:36 ==
LOC: SED 02:31
DX: R41.82 Altered mental status, unspecified (principal); K52.9 Noninfective gastroenteritis and colitis, unspecified; J44.9 Chronic obstructive pulmonary disease, unspecified; K21.9 Gastro-esophageal reflux disease without esophagitis; E66.9 Obesity, unspecified; F17.200 Nicotine dependence, unspecified, uncomplicated; Z86.73 Personal history of transient ischemic attack (TIA), and cerebral infarction without residual deficits; Z79.82 Long term (current) use of aspirin
CPT/HCPCS: 36415; 70450; 71010; 74177; 80053; 82140; 82948; 83605; 83735; 85025; 93005; 96360; 99285; G0480; J7030; Q9967

== ENCOUNTER 2017-03-10 03:44 | Inpatient (IN) | payer MEDICARE, MEDICAID ==
[~2017-03-10] VITALS: Ht 175.3 cm; Wt 66.6 kg
[2017-03-10] VITALS (10 sets, daily range): BP systolic 85–108; BP diastolic 46–64; PULSE 80–114; RESP 12–22; O2SAT 55–100
--- NOTE | 2017-03-10 04:00 | ED.REPORT ---
HPI-General Illness Date of Service Mar 10, 2017 ED Provider: Troy Telles MD Patient is a 67 year old female with a history of prior CVA, COPD, cirrhosis, chronic anemia, C. diff colitis with septic shock, and possible spontaneous bacterial peritonitis who presents to the ED via EMS after she was found with decreased level of consciousness this morning. Staff state that they were unable to wake her for approximately 4 hours prior to calling EMS. However the patient is awake on arrival to the ED. She admits to shortness of breath and cough for the past 3-4 days. Her O2 sat was measured in the 80s enroute, hitting a low of 55% on room air on arrival to the ED. Patient denies chest pain. She is able to provide limited history due to her current condition. Nursing Notes Stated Complaint: LOW O2 SAT/ DECREASE LOC Chief Complaint: Respiratory Distress Nursing Notes Reviewed: Yes Allergies: Coded Allergies: No Known Allergies (Unverified , 03/10/17) Scheduled Alendronate Sodium (Fosamax) 70 Mg Tablet 70 MG PO WEEKLY SUNDAYS Aspirin Chew (Aspirin Chew) 81 Mg Chew 81 MG PO DAILY Bisacodyl (Dulcolax) 5 Mg Tablet.dr 5 MG PO BID Calcium Carbonate (Calcium Carbonate) 200 Mg Tab.chew 500 MG PO TIDWM Cholecalciferol (Vitamin D3) (Vitamin D3) 1,000 Unit Tab.chew 1,000 UNIT PO DAILY Fluticasone/Salmeterol (Advair 250-50 Diskus) 60 Puff/Inh Disk 1 PUFF IH BID Furosemide (Furosemide) 20 Mg Tab 20 MG PO DAILY Gabapentin (Neurontin) 400 Mg Capsule 400 MG PO QID Lactobacillus Acidophilus (Probiotic) 1 Each Capsule 1 EACH PO DAILY Loratadine (Claritin) 10 Mg Capsule 10 MG PO DAILY Multivitamin (Multivitamins) 1 Each Capsule 1 EACH PO DAILY Oxycodone ER (Oxycontin) 10 Mg Tab.er.12h 10 MG PO BID Potassium Chloride (Potassium Chloride) 20 Meq Tab.er.prt 20 MEQ PO DAILY Scheduled PRN Acetaminophen (Acetaminophen) 325 Mg Capsule 650 MG PO Q4 PRN PRN For Pain Albuterol HFA (Proair HFA) 8.5 Gm Hfa.aer.ad 2 PUFFS INH Q4H PRN PRN For Shortness of Breath Loperamide (Loperamide) 2 Mg Capsule 2 MG PO Q6H PRN PRN For Diarrhea or Loose Stool Ondansetron (Ondansetron) 4 Mg Tablet 4 MG PO Q8H PRN PRN For Nausea Sennosides (Senna) 8.6 Mg Tablet 17.2 MG PO BID PRN PRN For Constipation diphenhydrAMINE HCl (Benadryl) 25 Mg Capsule 25 MG PO Q4H PRN PRN For Itching oxyCODONE (oxyCODONE) 5 Mg Tablet 5 MG PO Q4H PRN PRN For Moderate Pain General Time Seen by MD: 03:53 Chief Complaint Breathing problem Hx Obtained From: Patient Unable to Obtain Hx: Patient condition (limited) Arrived By: Ambulance Sudden in Onset?: No Onset Occurred: 3 days ago Symptom Duration: Since onset Severity: Current: No pain currently Severity: Maximum: No pain Recent Healthcare: No recent doctor visit, No recent hospitalization Similar Sx Previous: Yes Past Medical History Past Medical History Notes: Hospital admission from Jan 10 to January 30 2017: Recurrent septic shock with acute metabolic encephalopathy due to c-diff colitis and spontaneous bacterial peritonitis versus pneumonia. Past Medical History C. diff colitis with septic shock pulmonary edema chronic anemia Arthritis h/o pneumonia CVA 1989 Lupus Cirrhosis Anemia TIA (1989) Osteoporosis h/o rectovaginal fistula Sacral decubitus ulcer recurrent UTI Neuropathy chronic Right leg wound, stage III Reports: COPD, GERD Reports: Obesity Past Surgical History Right carpal tunnel Left hip repair ORIF l ankle Umbilical Hernia repair Reports: Tonsillectomy Reports: Carpal tunnel, Tubal ligation Family History Noncontributory Smoking History Current Every Day Smoker Social History Hx of alcoholism. Living at [facility]. Alcohol Use: Denies alcohol use Other Social History: Local resident Ambulatory Status Wheelchair Review of Systems Unable to Obtain ROS Patient condition (limited) Full Review of Systems Respiratory: Reports: Non-productive cough, Shortness of breath Cardiovascular: Denies: Chest pain, Edema Complete sys rev & neg: except as marked. Physical Exam Vital Signs Vital Signs Date Time Temp Pulse Resp B/P Pulse Ox O2 Delivery O2 Flow Rate FiO2 03/10/17 06:18 86 13 108/56 97 Non-Rebreather 8 03/10/17 05:59 106 14 106/62 100 Non-Rebreather 12 03/10/17 04:23 37.2 111 21 90/46 97 Non-Rebreather 15 03/10/17 04:16 96 Non-Rebreather 15 03/10/17 04:05 37.5 114 18 98/58 55 Nasal Cannula 2 Initial VS: Reviewed Skin: Warm, Dry, No cyanosis Neurologic: Alert, Oriented, Nonfocal Psychiatric: Mood/affect normal, Behavior normal General/Constitutional: Awake, Alert, No acute distress Head / Eyes: Normocephalic, PERRL ENT: Airway patent Neck: Supple, No JVD Respiratory / Chest: Breath sounds = bilat, No respiratory distress, No rales, No rhonchi, No wheezing Diminished Breath Sounds: Positive: Decreased bilateral Cardiovascular: Heart rate NL, Regular rhythm, Heart sounds NL, No murmurs Abdomen: Soft, Non-tender Upper Extremities Upper Extremity / MS: No swelling, No edema Lower Extremity / Pelvis / MS: No swelling, No edema Interpretation & Diagnostics Lab Results Interpretation Result Diagram: 03/10/17 0400 03/10/17 0400 Test 03/10/17 04:00 White Blood Count 7.4th/mm3 (3.8-10.1) Red Blood Count 2.86mil/mm3 (3.90-5.20) Hemoglobin 8.7g/dL (12.0-15.6) Hematocrit 27.5% (35.0-46.0) Mean Corpuscular Volume 96.2fL (81-100) Mean Corpuscular Hemoglobin 30.4pg (27.0-35.0) Mean Corpuscular Hemoglobin Concent 31.6% (32.0-37.0) Red Cell Distribution Width 17.3% (12.3-15.4) Platelet Count 239bil/L (150-400) Neutrophils (%) (Auto) 61% (40-74) Lymphocytes (%) (Auto) 27% (14-46) Monocytes (%) (Auto) 5% (4-12) Eosinophils (%) (Auto) 0% (0-5) Basophils (%) (Auto) 0% (0-3) Band Neutrophils % 5% (1-5) Metamyelocytes % 3% (0-0) Hematology Comments Prothrombin Time 11.2sec (8.1-12.5) Prothromb Time International Ratio 1.05ratio Activated Partial Thromboplast Time 29.9sec (22.8-33.0) D-Dimer 3.35mg/L FEU (<0.50) Sodium Level 138mEq/L (134-144) Potassium Level 4.3mEq/L (3.5-5.2) Chloride Level 99mEq/L (97-108) Carbon Dioxide Level 22mmol/L (18-29) Blood Urea Nitrogen 11mg/dL (8-27) Creatinine 0.90mg/dL (0.57-1.00) Estimat Glomerular Filtration Rate 90mL/min (>59) Glucose Level 106mg/dL (60-99) Lactic Acid Level 1.0mmol/L (0.4-2.0) Calcium Level 7.9mg/dL (8.5-10.1) Magnesium Level 1.7mg/dL (1.6-2.6) Total Bilirubin 0.2mg/dL (0.0-1.2) Aspartate Amino Transf (AST/SGOT) 81U/L (0-50) Alanine Aminotransferase (ALT/SGPT) 22U/L (0-32) Alkaline Phosphatase 71U/L (25-165) Troponin T 0.165ug/L (0.0-0.011) Pro-B-Type Natriuretic Peptide 78300hq/mL (0-301) Total Protein 6.3g/dL (6.4-8.4) Albumin 3.2g/dL (3.4-5.0) Procalcitonin 0.45ng/mL (0.00-0.08) ECG Interpretation ECG Interpretation: Junctional tachycardia, Rate 113 inferior infarct, old Low voltage Time: 04:03 X-Ray Chest Interpretation Chest Xray Interpretation: Impression: Chronic Pulmonary fibrosis. Underlying pulmonary effusions. Scoliosis. Improved compared to 01/25/2017. View: Portable Interpretation / Wet Read by: Wet read ED physician Re-Eval/Medical Decision Med Decision/Clinical Course 67-year-old with significant hypoxemia markedly elevated d-dimer, has a negative CT angiogram for pulmonary embolus. Her plain x-ray and her CT both show significant pulmonary fibrosis. She has had improvements of her chronic pleural effusions. She has an elevated troponin, not explained by azotemia. Admitted now for completion of rule out rule in protocol, assessment of her cardiac status including echocardiography. She has been adequate in her oxygenation with high flow oxygen on an oxygen mask. She is not hypercarbic or at least not grossly so and does not require pressure support or intubation. No evidence of pneumonia or other acute infection or sepsis. Source of Hx: Old records Time of Eval: 06:30 Re-Evaluation/Progress Note: Rechecked the patient. Discussed diagnosis and plan for hospital admission. Patient understands and agrees with this plan. All questions were addressed. Counseled Regarding: Diagnosis, Lab results, Need for admission Discharge & Departure Primary Impression: Elevated troponin Additional Impressions: Hypoxemia Altered mental status Pulmonary fibrosis Disposition: ADMITTED TO HOSPITAL Discharge Condition All VS Reviewed: Yes Condition: Stable Referrals: Ellie Rabago (PCP) Crit Care Except Billable Proc Time Spent: 30-74 minutes (thirty minutes) Services Performed: Patient management by me, Time spent at bedside, Reviewing test results, Reviewing imaging, Discussing patient care, Documentation in record Scribe Attestation Portions of this note were transcribed by Ning Carr. I, Dr. Telles personally performed the history, physical exam and medical decision-making; I reviewed and confirmed the accuracy of the information in the transcribed note. Signed by: Alison Raines, 03/10/2017 0621 copies to: Ellie Rabago Christopher W MD Mar 10, 2017 04:00 Ning Carr Mar 10, 2017 04:06
[2017-03-10 04:13] LABS: Mean Corpuscular Hemoglobin 30.4 pg (27.0-35.0); Mean Corpuscular Volume 96.2 fL (81-100); Platelet Count 239 bil/L (150-400)
--- NOTE | 2017-03-10 04:13 | ABG ---
DateTimeAnalyzed 04:08:00 -_ pH ____7.333 - 7.350 7.450 pCO2 ___48.5__ -mmHg 35.0 45.0 pO2 ___75.7__ -mmHg 69.0 116 HCO3- ___25.1__ -mmol/L 22.0 26.0 ABE ___-0.3__ -mmol/L -2.0 2.0 tHb ____7.8__ -g/dL O2Hb ___92.9__ -% COHb ____1.3__ -% MetHb ____0.7__ -% sO2 ___94.8__ -% FIO2 __100.0__ -% Drawn By MM - Date/Time Notified____ 04:12:00 -_ Spontaneous_RR ___18.0__ -b/min Liter_Flow ___15.0__ -L/min Oxygen Device 1 NON RE-CRISTIANE - Notified By MM - Notified Whom DR GIPSON - B 754 -mmHg tO2 ___10.3__ -Vol% Mazin test _Positive -
[2017-03-10] MEDS ORDERED: 0.9% Sodium Chloride 1,000 ML IV ONE ×2 (04:15→07:05)
[2017-03-10 04:29] LABS: D-Dimer 3.35 mg/L FEU (<0.50); INR 1.05 ratio
[2017-03-10 04:36] LABS: BASOPHILS % (AUTO) 0 % (0-3); EOSINOPHILS % (AUTO) 0 % (0-5); MONOCYTES % (AUTO) 5 % (4-12); NEUTROPHILS % (AUTO) 61 % (40-74)
[2017-03-10 04:55] LABS: Magnesium 1.7 mg/dL (1.6-2.6)
[2017-03-10 05:02] LABS: TROPONIN T 0.165 ug/L (0.0-0.011)
[2017-03-10] MEDS ORDERED: Heparin 5,000 Unit/mL Inj IVPUSH PRN ×2 (07:00→07:30)
[2017-03-10] MEDS ORDERED: Heparin 5,000 Unit/mL Inj IVPUSH ONE (07:00)
[2017-03-10] MEDS ORDERED: Heparin 25K Unit/500mL 0.45 NS 25,000 UNIT in IV Premix 1 EACH IV SCH ×2 (07:00→07:30)
[2017-03-10] MEDS ORDERED: Ondansetron 2 mg/mL 2 mL Inj IVPUSH PRN (07:30)
[2017-03-10] MEDS ORDERED: Polyethylene Glycol (PEG) 17 Gm Powder PO PRN (07:30)
[2017-03-10] MEDS ORDERED: Alum-Mag Hydrox-Simeth 30 mL Suspension PO PRN (07:30)
--- NOTE | 2017-03-10 07:46 | PCM.HPMED ---
Subjective Date of Service Mar 10, 2017 Primary Provider: Admitting Physician: Russell Lynn MD Primary Care Physician: Ellie Rabago Attending Physician: Russell Lynn MD Admit Status: From the Emergency Department, Admit to [facility] Team Chief Complaint: 67-year-old woman with multiple medical comorbidities presents with acute onset respiratory failure with hypoxemia and possible NSTEMI History of Present Illness: She has recently been resident in [facility]. Recent months been complicated by right lower extremity soft tissue infection and severe C. difficile colitis. She was feeling reasonably well until 3-4 days prior to admission with increasing cough and dyspnea. She reports reduced dyspnea today. Reports that her cough is mostly nonproductive. She has had some discomfort and heaviness in her chest throughout. No clearly defined episode of chest pain. No abdominal complaints today. Legs are chronically swollen but not increased recently. Review of Systems: 12 system ROS perform the significant findings in history of present illness and PMH. Allergies Coded Allergies: No Known Allergies (Unverified , 03/10/17) Home Medications Acetaminophen Albuterol Alendronate Aspirin 81 mg Azithromycin 500 mg Calcium carbonate 2 by mouth 3 times a day Ceftriaxone 1 g IM daily Diphenhydramine 25 mg when necessary Ferrous sulfate 325 mg twice a day Advair discus twice a day Breo elliptal inhaler Gabapentin 400 mg 4 times a day Lactobacillus Levofloxacin 500 mg daily Loperamide 2 mg every 6 when necessary Loratadine 10 mg daily Ondansetron when necessary Oxycodone ER 10 mg twice a day Oxycodone IR 5 mg every 4 hours when necessary Pantoprazole 40 mg daily PMH # COPD and/or pulmonary fibrosis # Right lower extremity soft tissue infection 11/03 - polymicrobial, wound management and prolonged Cipro/linezolid therapy # Admission 01/10/17 for severe C. difficile colitis # CVA 1989 # GERD # Tobacco dependence - ongoing # History of lupus - details unclear # Cirrhosis - listed in medical problem list, etiology unclear Family History No family history of fibrotic lung disease No family history of thromboembolic disease Social History Hx Alcohol Use: No Hx Substance Use: No Hx Tobacco Use: Yes Smoking Status: Current Every Day Smoker Living Arrangement: Nursing Home Facility Exam Vital Signs Vital Sign - Last Date Time Temp Pulse Resp B/P Pulse Ox O2 Delivery O2 Flow Rate FiO2 03/10/17 07:00 83 13 85/51 99 Non-Rebreather 7 03/10/17 04:23 37.2 Intake and Output 03/09/17 03/09/17 03/10/17 Cumulative From/Thru 15:00 23:00 07:00 03/10/17 04:05 - 03/10/17 04:23 Intake Total 1000 ml 1000 ml Balance 1000 ml 1000 ml Intake IV Total 1000 ml 1000 ml Exam General: Cachectic woman appearing older than stated age HEENT: Alopecia, sclerae anicteric, oral mucosa moist Neck: no apparent JVD Chest: Coarse inspiratory crackles both bases, dry inspiratory crackles anteriorly bilaterally, mildly reduced breath sounds on right but no clear dullness Cardiac: S1S2, no clearly audible murmur Abdomen: BS normal, non-tender Extremities: 1+ edema, but skin tenting Neuro: A&O, cranial nerves symmetric, motor strength 4+/5, coordination normal Lab and Diagnostics Labs Troponin 0.165 ProBNP 15,617 D-dimer 3.35 Procalcitonin 0.45 AST 81, other LFTs normal INR 1.05, albumin 3.2 Hemogram: 5% bands, 3% metamyelocytes, platelets Result Diagram: 03/10/17 0400 03/10/17 0400 Microbiology Blood cultures :20 12-lead ECG EK/22 4:03 supraventricular tachycardia rate 113, Q-wave in lead III, low voltage over precordium, no acute ST changes 03/10 15:20 sinus rhythm, no acute ST-T wave changes . Assessment & Plan 67-year-old woman with long-standing fibrotic lung disease chronic medical debility presents with acute on chronic respiratory failure with hypoxemia, with elevated troponin and BNP # Acute respiratory failure with hypoxia. Present on admission. SaO2 55% on 2 L emergency department. Subsequent ABG shows severe hypoxemia. Chest x-ray and chest CT notable for chronic fibrotic changes and new infiltrate in right lower lobe, with small effusion. She seems to been treated extensively with antibiotics recently including quinolone plus pedal lactam. - Oxygen therapy as needed - Repeat chest x-ray after 24 hours - Treat for HCAP with Zosyn, levofloxacin and vancomycin - Pulmonology consult # Acute healthcare facility acquired pneumonia. recent hospitalization and wound care. Impressive interval changes in right lower lobe compared to previous CT scan. - Vancomycin, and Zosyn - Infectious disease consult # Septic shock. Systemic inflammatory response, acute. Heart rate 114, respiratory rate 21, blood pressure roz 85/51. Low-grade fever 37.5. Focal infection is right lower lobe pneumonia. Lactic acid is normal. Procalcitonin elevated 0.45. Hemogram with normal WBC count but 5% bands and 3% metamyelocytes. Of note recent outpatient hemogram also showed immature WBC forms. Patient is suffered C. difficile from antibiotic use in the recent past. - Cardiovascular support: Mean arterial pressure greater than 65 mm, urine output greater than 0.5 ML/KG/HR - Check urinalysis - Monitor clinically for signs of infection - broad-spectrum antibiotics - Repeat hemogram # Troponin elevated, acute. Baseline troponins were 0.04 reported during recent admission for C. difficile colitis. Current troponin is elevated above baseline. - Cardiac heparin - Aspirin - Beta mona, if tolerated - Trend troponin - Echocardiogram # Acute on chronic diastolic congestive heart failure. Baseline troponin values from previous visits [id number]. Possible contribution of chronic right heart failure due to pulmonary fibrosis. Current value is elevated above baseline likely due to acute coronary ischemia - Strict intake and output - Minimum necessary IV fluids - Daily BMP with electrolyte management # Weakness and debility - Physical therapy consult # nutritional status - General diet at present # Chronic fibrotic lung disease, history COPD, ongoing tobacco use. - Monitor clinically Venous thromboembolism prophylaxis: Mechanical and chemical prophylaxis, currently on cardiac heparin drip Disposition: Patient is expected to be inpatient status for greater than 2 minutes Pain Evaluation: Adequate Pain Control GI Prophylaxis: Not indicated VTE Prophylaxis: SRAVANI Williamson, Sirisha Resuscitation Status: DNR/DNI:Do Not Resuscitate/Intubate Time spent 70 minutes Russell Lynn MD Mar 10, 2017 07:46
[2017-03-10] MEDS: Vancomycin Dose per Pharmacist XX SCH (08:30)
--- NOTE | 2017-03-10 08:33 | DRSVH ---
PROCEDURE: CT ANGIO CHEST PULMONARY EMBOLISM ([id number]) INDICATIONS: hypoxemia TECHNIQUE: After the administration of intravenous contrast, 2 mm thick sections acquired from the pulmonary api ana to the posterior costophrenic angles. 3-dimensional maximum intensity projection (MIP) coronal a nd sagittal reformats were then acquired through the thorax. For radiation dose reduction, the follo wing was used: automated exposure control, adjustment of mA and/or kV according to patient size. COMPARISON: [facility], CT, CT ABD PELVIS W CON, 02/13/2017, 5:13. [facility], CR, XR CHEST 1VW (PORTABLE), 03/10/2017, 4:21. FINDINGS: Image quality: Excellent. Pulmonary arteries: Pulmonary arteries are normal in size, and demonstrate no intraluminal filling d efects to suggest central pulmonary embolism. Lungs and pleura: Lungs are abnormal with mild patchy pneumonia pattern bilaterally over the upper l ungs, right greater than left, indents pneumonia at the right lung base. No left-sided pleural effus ions or pneumothorax bilaterally but there is a small inferior simple appearing right pleural effusio n. Central and peripheral airways are patent. Mediastinum: Heart size is normal, without pericardial effusion. No left-sided mediastinal or hilar adenopathy but there are mildly prominent right-sided hilar and right-sided mediastinal lymph nodes most likely reactive to the pneumonia pattern at the right lower lung in this clinical circumstance. No definitely malignant appearing lymph nodes are seen. Thoracic aorta is normal in caliber and enh ancement. Esophagus is normal in caliber, without hiatal hernia. Bones and chest wall: No suspicious bony lesions. Ribs and thoracic spine appear intact throughout. Thyroid gland appears normal where well visualized. No axillary or supraclavicular adenopathy. Abdomen: Visualized upper abdominal solid organs appear normal in the early arterial phase of enhanc ement but are visualized only in a limited extent of the far cephalad upper abdomen. IMPRESSION: Mild bilateral patchy upper lobe pneumonia, right greater than left. New dense right low er lobe pneumonia with adjacent small simple appearing pleural effusion. No pulmonary embolus found. Small presumably reactive lymph nodes are present to a greater number than generally would be seen on the right, likely reactive in this clinical circumstance. There is relatively prominent convex rightward scoliosis, contributing to volume loss within the righ t hemithorax. Dictated by: Pascual Hanson M.D. on 03/10/2017 at 8:23 Approved by: Pascual Hanson M.D. on 03/10/2017 at 8:31
--- NOTE | 2017-03-10 08:43 | DRSVH ---
PROCEDURE: X-RAY CHEST ONE VIEW, PORTABLE ([id number]) INDICATIONS: decreased LOC TECHNIQUE: One view of the chest was acquired. COMPARISON: [facility], CR, XR CHEST 1VW (PORTABLE), 02/13/2017, 2:42. [facility], CR, XR CHEST 1VW (PORTABLE), 01/29/2017, 8:08. FINDINGS: Surgical changes and devices: None. Lungs and pleura: No definite pleural effusions or pneumothorax. Lungs are abnormal with both lung bases demonstrating alveolar infiltration but much greater airspace disease disease is seen on the ri ght than the left especially the right lower lobe. Mild alveolar infiltration appears present at the right upper lung. Mediastinum: Mediastinal contours appear normal. Heart size is normal. Bones and chest wall: No suspicious bony lesions. Overlying soft tissues appear unremarkable. IMPRESSION: Right lung base pneumonia, possible slight pneumonia medial left lung base, mild or early pneumonia right upper lobe. Convex right scoliosis has been previously present, with asymmetric arian g volumes (mildly reduced on the right associated with this chronic scoliosis). Please also refer to CT report from today. Dictated by: Pascual Hanson M.D. on 03/10/2017 at 8:40 Approved by: Pascual Hanson M.D. on 03/10/2017 at 8:42
[2017-03-10] MEDS ORDERED: Vancomycin Inj 1,250 MG in 0.9% Sodium Chloride 250 ML IV ONE (09:00)
[2017-03-10] MEDS: Piperacillin-Tazo 3.375 Gm Inj 3.375 GM in Dextrose 5% Minibag Plus 50 ML IV SCH ×2 (10:16→16:32)
[2017-03-10] MEDS: Sodium Chloride LOK Flush 10 mL Syringe IVFLUSH SCH ×2 (10:16→16:33)
[2017-03-10] MEDS ORDERED: PANT40TA3 PO (10:40)
[2017-03-10] MEDS ORDERED: CEFT1VIA6 IM (10:40)
[2017-03-10] MEDS ORDERED: FLUT1AER IH (10:40)
[2017-03-10] MEDS ORDERED: AZIT500T5 PO (10:40)
[2017-03-10] MEDS ORDERED: LEVO500T79 PO (10:40)
[2017-03-10] MEDS ORDERED: FERR-83 PO (10:40)
[2017-03-10] MEDS ORDERED: CALC500T9 PO (10:40)
[2017-03-10] MEDS ORDERED: ALEN70TA2 PO (10:40)
--- NOTE | 2017-03-10 10:53 | PCM.CONPHA ---
Assessment/Plan Assessment/Plan Pharmacy Kinetic Dosing Vancomycin Indication: HCAP Vanc goal trough:15-20 mcg/mL Pt wt: 65.9 kg Other ABX: ZOSYN, LEVAQUIN, ORAL VANCO Cultures: Blood PENDING SCr: 0.90 mg/dL Assessment/Plan: - Loading dose of Vancomycin 1250 mg given -Will continue Vancomycin 750 mg Q12H with trough scheduled prior to 4th dose on 03/11 @2130 Pharmacy appreciates consult and will continue to monitor. Madison Stout PharmD Mar 10, 2017 10:53
--- NOTE | 2017-03-10 11:14 | DRSVH ---
[facility] [address] [place] [address] Echocardiogram Report Name: OSMAN RODRIGUEZ ate: 03/10/2017 Height: 69 in Hospital Exam Location: [facility] Weight: 145 lb Gender: Female BSA: 1.8 m2 : 1950 Age: 67 yrs BP: 104/64 mmHg Reason For Study: Hypoxia Ordering Physician: Performed By: [facility] Interpretation Summary The left ventricle is normal in size, wall thickness, and systolic function without any focal wall motion abnormalities. The ejection fraction is estimated to be 60-65%. There has been no significant change since the previous study. The right ventricle is borderline dilated. The right ventricular systolic function is normal. Right ventricular systolic pressure is estimated to be 30 mmHg plus the clinically estimated CVP which cannot be estimated on this exam. The interatrial septum is intact with no evidence for an atrial septal defect. The atrial septum is aneurysmal. There is mild to moderate tricuspid regurgitation. Compared to the prior echo exam, there has been an increase in TR severity. There is no other significant valvular heart disease. There is no pericardial effusion. There is a small right sided pleural effusion. Procedure: A two-dimensional transthoracic echocardiogram with color flow and Doppler was performed in limited views only. Comparison is made with the echocardiogram of 01-22-17. The patient was in normal sinus rhythm during the exam. Left Ventricle: The left ventricle is normal in size, wall thickness, and systolic function without any focal wall motion abnormalities. The ejection fraction is estimated to be 60-65%. There has been no significant change since the previous study. Assessment of diastolic parameters indicates normal left ventricular diastolic function and normal filling pressures. Right Ventricle: The right ventricle is borderline dilated. The right ventricular systolic function is normal. Atria: The interatrial septum is intact with no evidence for an atrial septal defect. The atrial septum is aneurysmal. Mitral Valve: The mitral valve leaflets appear borderline thickened, but open well. There is trace mitral regurgitation. Aortic Valve: The aortic valve opens well. No aortic regurgitation is present. Tricuspid Valve: The tricuspid valve leaflets are thin and pliable. There is mild to moderate tricuspid regurgitation. Compared to the prior echo exam, there has been an increase in TR severity. Right ventricular systolic pressure is estimated to be 30 mmHg plus the clinically estimated CVP which cannot be estimated on this exam. Pulmonic Valve: The pulmonic valve is not well visualized. There is no other significant valvular heart disease. Pericardium/ Pleura There is no pericardial effusion. MMode/2D Measurements & Calculations RVDd major: 7.8 cm RVD1 (basal): 4.3 cm RVD2 (mid): 3.6 cm Doppler Measurements & Calculations MV E max álvaro MV E/A: 1.1 TR max álvaro MV dec time : 101.4 cm/sec MV A dur : 274.5 cm/sec : 0.19 sec MV A max álvaro : 0.17 sec TR max P.1 mmHg : 89.8 cm/sec MV P1/2t: 56.2 msec MV P1/2t max álvaro MVA(P1/2t): 3.9 cm2 Reading Physician:JAZMIN
[2017-03-10] MEDS: levoFLOXacin 500 mg Tablet PO SCH (11:18)
[2017-03-10] MEDS: Vancomycin 100 mg/mL Oral Solution PO SCH ×3 (11:19→21:28)
[2017-03-10] MEDS ORDERED: diphenhydrAMINE 25 mg Capsule PO PRN (11:45)
[2017-03-10] MEDS: oxyCODONE ER 10 mg ER12 Tablet PO SCH ×2 (12:00→21:28)
--- NOTE | 2017-03-10 12:05 | CONS ---
[address] [address] CONSULTATION REPORT PATIENT: OSMAN WOLFE : 1950 MR#: [id number] ADMIT: 03/10/2017 JOB ID: [id number] DATE OF SERVICE: 03/10/2017 REQUESTING PHYSICIAN: Dr. Russell Lynn REASON FOR CONSULTATION: Hypoxemic respiratory failure. Dear Dr. Lynn: Thanks for asking me to see the patient. The patient is a 67-year-old female who has apparently recently been transferred to skilled care facility when she was admitted in December of 2016. At that time, she was treated for C. difficile colitis. Along with that, she was also noted to have concern of right lower extremity cellulitis and at that time this patient did not have an adequate support care as she was living by herself. She was transferred to a skilled care facility and from thereon she was noted to have concern of desaturation and not feeling well, and at that time, the patient was transferred to [facility] for reevaluation and at that time the patient was noted to be hypoxemic with saturation in the range of low 80s and she was placed on nonrebreather initially with improvement in her oxygen saturation and gradually it was weaned down to 50% and she was noted to have evidence of non-ST elevation MN with elevated troponin and she was also given the IV fluid for her hypotension, although her lactic acid was within normal limits and, at that time, the patient did receive chest x-ray which was evident of right lower lobe infiltrative process which was followed by CT chest angiogram to rule out pulmonary embolism and apparently her CT chest angiogram was negative for pulmonary embolism but was evident of right lower lobe infiltrate with evidence of air bronchograms and small pleural effusion and, at that time, in face of her ongoing hypoxia and pulmonary infiltrate, critical care consultation was achieved and the patient is currently in intensive care unit. On evaluation of the patient, she is sitting on 50% VentiMask and able to communicate well. She appears awake and alert, stating that she was having some productive cough for the past 1-2 days but she was unable to bring much secretions. She also stated that she was having right chest pain off and on which was worse with taking a deep breath and cough. She denied having any concern of fever, chills, night sweats, lack of appetite. She denies any concern of choking on food or drinks and she states that she is not feeling too bad and she wants to go back to her apartment or to skilled care facility with antibiotic which she is receiving at this time. She otherwise denies any concern of nausea, vomiting, diarrhea or constipation or abdominal pain. PAST MEDICAL HISTORY: Is significant for: COPD, severity does not appear that patient is on home O2 supplementation or noninvasive positive pressure ventilator support or any evidence of respiratory failure. She also has right lower extremity soft tissue infection and she has history of C. difficile colitis on January 10, 2017. She also had history of CVA in 1989, gastroesophageal reflux disease, tobacco abuse but she continued to smoke up to half pack a day or sometimes maybe more. 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 She also carried a diagnosis of cirrhosis of the liver. Etiology is unclear. SOCIAL HISTORY: The patient does not drink alcohol of have any history of IV drug abuse. She does smoke at least half pack to one pack a day for 47 years and she continues to smoke that much. The patient currently used to live by herself in an apartment. She has grown up children but they are not living with her. She has a cousin, her name is Hilario, who is the durable power of privacy attorney. ALLERGIES: No known drug allergies. CURRENT MEDICATIONS: Include: 1. Aspirin. 2. Vancomycin while patient is in the hospital. 3. IV saline. 4. Zosyn. 5. Maalox. 6. P.r.n. Zofran. 7. P.r.n. Senokot. 8. P.r.n. MiraLAX. 9. P.r.n. acetaminophen. 10. P.r.n. subcu heparin prophylaxis. 11. Levaquin 500 mg daily. REVIEW OF SYSTEMS: Positive and negative as mentioned above on her physical examination. PHYSICAL EXAMINATION: This morning her blood pressure is 104/64, pulse is 85, respiratory rate is 22, pulse ox is 99% on 50% FiO2. Lungs are rhonchi at the right base. Cardiovascular examination: Rate and rhythm regular. Abdomen: Is soft. No hepatosplenomegaly. Bowel sounds positive. Extremities: Edema of feet negative. Neurologic examination: No focal deficits appreciated. HEENT examination: Head is normocephalic, atraumatic. Pupils are equal, reacting fully to light. Neck is supple. No JVD appreciated. No thyromegaly. No supraclavicular adenopathy. Skin examination within normal limits. Lymphatic examination: No gross lymphadenopathy appreciated. IMAGING: Did include CT chest angiogram done this morning which is evident of significant right lower lobe consolidation with evidence of air bronchogram and very small right pleural effusion. The patient also has some ground-glass patchy infiltrative process on the right upper lobe. WBC 7.4, hemoglobin 8.7, hematocrit 27.5, platelets are 239. Chemistry revealed sodium 138, potassium 4.3, chloride is 99, bicarbonate 22, BUN 11, creatinine 0.9, glucose 106, calcium 7.9, magnesium 1.7. Total bili 0.2. AST 81, ALT 21, alkaline phosphatase 71. Troponin is 0.165 and ProBNP 15,617. Total protein 6.3, albumin 3.2. Procalcitonin is 0.45. Arterial blood gas analysis done at the time of admission: pH 7.33, pCO2 48, pO2 75, bicarbonate 25, saturation is 94%. This ABG was done on 100% FiO2. ASSESSMENT: 1. Acute hypoxemic and hypercapnic respiratory failure most likely secondary to right lower lobe pneumonia, appears to be infectious in etiology at this time with ongoing concern of pleuritic chest pain and productive cough, although still cannot rule out other possibilities including inflammatory process but it appears to be less likely as the patient's previous x-ray on February 12, 2017 was without any evidence of acute lung process. 2. Underlying chronic obstructive pulmonary disease/emphysema. 3. Right lower extremity cellulitis. 4. Hypotension appeared to have resolved after IV fluid resuscitation. 5. Continued tobacco abuse. 6. History of systemic lupus erythematosus without any treatment at this time. 7. History of cirrhosis of liver of unclear etiology. RECOMMENDATION: 1. At this time, we will recommend to continue nosocomial coverage with antibiotics for nosocomial pneumonia including vancomycin and Zosyn. Also it is prudent to continue anaerobic coverage again to rule out for possibility of aspiration pneumonia. 2. Swallow evaluation. 3. Incentive spirometry. 4. Continue bronchodilators. 5. IV fluids as needed. 6. Continue otherwise supportive care. 7. I discussed in detail with the patient regarding the possibility of intubation and at that time the patient was very clearly stated that she does not want to be intubated and she does not want CPR and she stated that her durable power of privacy attorney, her cousin, Hilario, is aware of this situation and she knows that she will not like to proceed with aggressive management in that regard. She is okay to continue antibiotics and IV fluids and other supportive care as has already been initiated. I conveyed this conversation and patient's sentiments to admitting physician, Dr. Lynn, and he is aware of the situation. For now, we will continue aggressive supportive care and will follow along with you. Thanks for involving me in the care of the patient. Sixty minutes provided in care of this patient.
--- NOTE | 2017-03-10 15:31 | NUR ---
Social Work: Initial Assessment Attempt School Lunch Manager attempted to complete initial assesment, but patient was asleep. SW attempted to call patient's spouse a few times, but there was no answer. SW left a voice mail with her name and number requesting a call back. SW will attempt to complete initial assessment at a later time. Aydee Reno, SHONDA, ACM
--- NOTE | 2017-03-10 16:28 | NUR ---
Social Work: Initial Assessment Data & Assessment: See Initial Assessment. EMR reviewed. Patient is a 67 y/o female that admitted with hypoxemia intestinal pneumonia per H&P. SW met with patient at bedside to complete initial assessment, SW role reviewed and discharge planning discussed. Patient confirmed that her NOK is her son Dereck Rodriguez. Patient reported that she does not have an Advance Directive/DPOA, but accepted the information. Patient's insurance is Medicare and [facility] and patient PCP is Ellie Rabago. Patient does not have any VA or LTC benefits. Patient does not have a re-admit score. Patient states that she was at [facility] prior to admitting into the hospital, but plans to return to her apartment with elevator access when discharged. Patient states that she has had HH in the past, but she can not re-call the name and does not want HH when discharged. Patient has an electronic WC and walker at home. Patient also has [employer] and her [employer] worker is Keyla Nunez. Patient plans to discharge home with [employer] via Medicaid transportation. SW wrote contact information on patient's white board. SW will fax patient's H&P to [employer]. SW will continue to follow. Plan: Patient will likely discharge home with [employer] via Medicaid transport. SW will continue to follow. Adriane Reno LMSW, [place] Addendum: 03/10/17 at 1639 by ADRIANE RENO SS Amended: Links added.
--- NOTE | 2017-03-10 18:35 | NUR ---
Transfer from ED Pt. arrived to hospital for hypoxemia and was transferred from the ED to room 2012 [facility] at ~ 0800 this morning. Pt. arrived with 500mL NS bolus due to BP being hypotensive per ED RN report. Pt. is also on Cardiac heparin protocol. Pt. arrived on 6L nonrebreather oxygen mask and was sating 100%. Pt. switched to oxymask on PCC unit and fluctuates between 4L and 7L sating from high 80s to mid 90s. Pt. states no SOB at this time but states having lower back pain 8/10. Roxicodone PRN 5mg given for pain and Pt. states she takes 10mg of hydrocodone at home, upon reassessment pain level to 6/10. Pt. at this time also denies CP, or any other type of pain.
[2017-03-10] MEDS: Fluticasone-Salmererol 250-50 Inhaler INHALATION SCH (21:27)
[2017-03-10] MEDS: Vancomycin Inj 750 MG in 0.9% Sodium Chloride 250 ML IV SCH (21:28)
[2017-03-11] VITALS (9 sets, daily range): BP systolic 93–101; BP diastolic 49–56; PULSE 71–92; RESP 9–20; O2SAT 95–100
[2017-03-11] MEDS: Sodium Chloride LOK Flush 10 mL Syringe IVFLUSH SCH ×3 (00:30→16:48)
[2017-03-11] MEDS: Piperacillin-Tazo 3.375 Gm Inj 3.375 GM in Dextrose 5% Minibag Plus 50 ML IV SCH ×3 (01:46→16:48)
[2017-03-11] MEDS: Vancomycin 100 mg/mL Oral Solution PO SCH ×3 (03:13→14:23)
--- NOTE | 2017-03-11 06:36 | NUR ---
BP/Heparin Drip/BM Pt remains hypotensive throughout the shift with SBP in the 90s and is asymptomatic at this time. BP cuff did have to be moved to other arm. Pt had a critical value of PTT 154.3 at 2130 and did have to have the heparin drip put on standby. Pt has not been within the goal range x2. Pt has had BMs this shift and was able to use the bedpan for all but one. Pt was incontinent of stool during sleep and the stool was loose while prior BMs had soft, formed stool.
[2017-03-11] MEDS: Vancomycin Dose per Pharmacist XX SCH (08:30)
[2017-03-11] MEDS ORDERED: Potassium Chloride 20 mEq SR Tablet PO SCH (08:30)
[2017-03-11 08:31] LABS: BASOPHILS % (AUTO) 0.6 % (0-3); EOSINOPHILS % (AUTO) 1.2 % (0-5); MONOCYTES % (AUTO) 11.4 % (4-12); Mean Corpuscular Hemoglobin 29.8 pg (27.0-35.0); Mean Corpuscular Volume 96.8 fL (81-100); Platelet Count 212 bil/L (150-400)
[2017-03-11] MEDS: Pantoprazole 40 mg ER24 Tablet PO SCH (08:41)
[2017-03-11] MEDS: levoFLOXacin 500 mg Tablet PO SCH (08:42)
[2017-03-11] MEDS: oxyCODONE ER 10 mg ER12 Tablet PO SCH ×2 (08:43→22:50)
[2017-03-11] MEDS: Fluticasone-Salmererol 250-50 Inhaler INHALATION SCH ×2 (08:50→22:49)
--- NOTE | 2017-03-11 09:25 | NUR ---
Evaluation completed. Please go to "Notes" then click on "Assessments and Notes" (bottom left corner of screen). Then select appropriate discipline tab on top of screen.
--- NOTE | 2017-03-11 09:48 | DRSVH ---
PROCEDURE: X-RAY CHEST ONE VIEW, PORTABLE ([id number]) INDICATIONS: assess interval change infiltrates TECHNIQUE: One view of the chest was acquired. COMPARISON: [facility], CR, XR CHEST 1VW (PORTABLE), 03/10/2017, 4:21. FINDINGS: Surgical changes and devices: None. Lungs and pleura: No definite pleural effusions or pneumothorax. Increased opacification noted in th e right lung base is redemonstrated. Mediastinum: Mediastinal contours appear normal. Heart size is normal. Bones and chest wall: Convex right thoracic spine scoliosis or No suspicious bony lesions. Overlyin g soft tissues appear unremarkable. IMPRESSION: Right basilar opacity most compatible with pneumonia. Recommend followup imaging to resol ution to exclude underlying neoplastic process. Dictated by: Virginia Berkowitz MD, PhD on 03/11/2017 at 9:45 Approved by: Virginia Berkowitz MD, PhD on 03/11/2017 at 9:47
[2017-03-11] MEDS: Vancomycin Inj 750 MG in 0.9% Sodium Chloride 250 ML IV SCH ×2 (10:37→22:51)
--- NOTE | 2017-03-11 10:42 | PROG NOTE ---
[address] [address] PROGRESS NOTE PATIENT: OSMAN WOLFE : 1950 MR#: [id number] ADMIT: 03/10/2017 JOB ID: [id number] DATE: 03/11/2017 SUBJECTIVE: Patient is awake and alert stating that she is feeling better. OBJECTIVE: Blood pressure is 98/50, MAP of 66, respiratory rate is 18, temperature 36.7, pulse ox is 97% on 6 L nasal cannula. Lungs are few rhonchi at the right base. Cardiovascular exam rate rhythm regular. Abdomen is soft, no hepatosplenomegaly. Bowel sounds positive. Extremities: Edema feet negative. Neurologic exam no focal deficit appreciated. HEENT exam within normal limits. Lymphatic exam no focal lymphadenopathy appreciated. ANCILLARY DATA: White count of 6.8, hemoglobin 7.5, hematocrit 24.4, platelets are 211. Chemistry: Sodium is 140, potassium 3.4, chloride 106, bicarb 23, BUN 9, creatinine 0.58, calcium is 7.2, and 2D echo without any significant abnormality. Chest x-ray done this morning is evident of persistent right lower lobe infiltrate with minimal right-sided pleural effusion. ASSESSMENT: 1. Acute hypoxemic and hypercapnic respiratory failure, likely secondary to #2 right lower lobe pneumonia, most likely infectious in etiology with high suspicion of aspiration with a small pleural effusion appeared to be stable on follow up chest x-ray. 2. Underlying the chronic obstructive pulmonary disease/emphysema. 3. Right lower extremity cellulitis. 4. Hypotension appeared to have resolved after intravenous fluid resuscitation. 5. Continued tobacco abuse. 6. History of systemic lupus erythematosus without any treatment at this time. 7. History of cirrhosis of liver of unclear etiology. PLAN: 1. At this time will continue antibiotics as recommended. 2. Incentive spirometry. 3. Continue bronchodilators. 4. IV fluids as needed. 5. Continue to wean FiO2 as tolerated. 6. Formal speech therapy consult for swallow evaluation. 7. Continue otherwise supportive care. Will follow along with you. Thirty-five minutes of time provided in this patient's care.
--- NOTE | 2017-03-11 17:40 | PCM.PNMED ---
Subjective Date of Service Mar 11, 2017 Subjective 67-year-old woman with multiple medical comorbidities presents with acute onset respiratory failure with hypoxemia . She is alert and breathing comfortably. She is mostly bothered by diarrhea, musculoskeletal complaints and the taste of oral vancomycin solution. Exam Vital Signs Vital Sign - Last Date Time Temp Pulse Resp B/P Pulse Ox O2 Delivery O2 Flow Rate FiO2 03/11/17 17:08 36.8 83 93/55 99 Nasal Cannula 6.00 03/11/17 12:47 20 03/10/17 08:10 100 Intake and Output 03/10/17 03/10/17 03/11/17 Cumulative From/Thru 15:00 23:00 07:00 03/10/17 04:05 - 03/11/17 04:41 Intake Total 680 ml 170 ml 1850 ml Output Total 1265 ml 1265 ml Balance -585 ml 170 ml 585 ml Intake Oral 680 ml 170 ml 850 ml IV Total 1000 ml Output Urine Total 1265 ml 1265 ml # Voids 1 1 # Bowel Movements 3 3 Exam General: Pale-appearing woman in no acute distress HEENT: sclerae anicteric, oral mucosa moist, alopecia Neck: no apparent JVD Chest: Diffuse inspiratory crackles and coarse breath sounds in all lung buckner Cardiac: S1S2, no murmur Abdomen: BS present, soft, non-tender Extremities: 1+ edema with tenting skin; bandage right lower extremity wound; Neuro: A&O, cranial nerves symmetric, motor strength 4+/5, coordination normal Lab and Diagnostics Result Diagram: 03/11/17 0810 03/11/17 0810 Microbiology Blood cultures :20 12-lead ECG EK/22 4:03 supraventricular tachycardia rate 113, Q-wave in lead III, low voltage over precordium, no acute ST changes 03/10 15:20 sinus rhythm, no acute ST-T wave changes . Assessment & Plan 67-year-old woman with long-standing fibrotic lung disease chronic medical debility presents with acute on chronic respiratory failure with hypoxemia, with elevated troponin and BNP # Acute respiratory failure with hypoxia. Present on admission. SaO2 55% on 2 L emergency department. Subsequent ABG shows severe hypoxemia. Chest x-ray and chest CT notable for chronic fibrotic changes and new infiltrate in right lower lobe, with small effusion. She seems to been treated extensively with antibiotics recently including quinolone plus pedal lactam. - Oxygen therapy as needed - Repeat chest x-ray after 24 hours - Treat for HCAP with Zosyn, levofloxacin and vancomycin - Pulmonology consult # Acute healthcare facility acquired pneumonia. recent hospitalization and wound care. Impressive interval changes in right lower lobe compared to previous CT scan. - Vancomycin, and Zosyn - Infectious disease consult # Septic shock. Systemic inflammatory response, acute. Heart rate 114, respiratory rate 21, blood pressure roz 85/51. Low-grade fever 37.5. Focal infection is right lower lobe pneumonia. Lactic acid is normal. Procalcitonin elevated 0.45. Hemogram with normal WBC count but 5% bands and 3% metamyelocytes. Patient is suffered C. difficile from antibiotic use in the recent past. Hemodynamics normalized within 24 hours with appropriate IV fluids. - Cardiovascular support: Mean arterial pressure greater than 65 mm, urine output greater than 0.5 ML/KG/HR # Troponin elevated, acute. Baseline troponins were 0.04 reported during recent admission for C. difficile colitis. Current troponin is elevated above baseline, but series is flat. EKG was unremarkable. Doubt any acute coronary syndrome - discontinue Cardiac heparin # Acute on chronic diastolic congestive heart failure. Baseline troponin values from previous visits [id number]. Possible contribution of chronic right heart failure due to pulmonary fibrosis. Current value is elevated above baseline likely due to acute coronary ischemia - Strict intake and output - Minimum necessary IV fluids - Daily BMP with electrolyte management # Diarrhea, chronic. We have resumed oral vancomycin treatment in the setting of her broad-spectrum antibiotics. - Change vancomycin to capsule for tolerability reasons - Imodium when necessary # Weakness and debility - Physical therapy consult # nutritional status - General diet at present # Chronic fibrotic lung disease, history COPD, ongoing tobacco use. - Monitor clinically Venous thromboembolism prophylaxis: Mechanical and chemical prophylaxis, currently on cardiac heparin drip Disposition: Patient is expected to be inpatient status for greater than 2 midnight GI Prophylaxis: Not indicated VTE Prophylaxis: Sirisha Boyd Resuscitation Status: DNR/DNI:Do Not Resuscitate/Intubate Time spent 35 minutes Russell Lynn MD Mar 11, 2017 17:40
[2017-03-11] MEDS: Potassium Chloride 20 mEq SR Tablet PO SCH ×2 (18:22→22:50)
--- NOTE | 2017-03-11 18:43 | NUR ---
Blood Pressure/Diarrhea Pts. blood pressure continues to be hypotensive ranging systolically 87-100 and diastolically 55-60. Pt. states no complications when her blood pressure is low. MAP has also been ranging from 58-68. Pt. has been having loose stool throughout shift and two imodiums PRN have been given. MD is made aware and potassium level is at 3.4.
[2017-03-11] MEDS ORDERED: Vancomycin Serum Trough XX ONE (21:30)
[2017-03-11] MEDS: Vancomycin 125 mg Oral Capsule PO SCH (22:50)
[2017-03-12] VITALS (8 sets, daily range): BP systolic 91–111; BP diastolic 48–61; PULSE 71–91; RESP 15–21; O2SAT 93–99
[2017-03-12] MEDS: Sodium Chloride LOK Flush 10 mL Syringe IVFLUSH SCH ×3 (00:30→16:56)
[2017-03-12] MEDS: Piperacillin-Tazo 3.375 Gm Inj 3.375 GM in Dextrose 5% Minibag Plus 50 ML IV SCH ×3 (01:18→16:56)
[2017-03-12] MEDS: Vancomycin 125 mg Oral Capsule PO SCH ×4 (04:31→20:15)
--- NOTE | 2017-03-12 07:45 | NUR ---
BP Pt was hypotensive the entire shift. BP cuff was placed on opposing upper arms and finally was placed on the right radial artery. Pt still shows to be hypotensive but now pt's MAP is closer to goal of >65.
[2017-03-12] MEDS: levoFLOXacin 500 mg Tablet PO SCH (08:33)
[2017-03-12] MEDS: Pantoprazole 40 mg ER24 Tablet PO SCH (08:33)
[2017-03-12] MEDS: Potassium Chloride 20 mEq SR Tablet PO SCH ×2 (08:34→20:15)
[2017-03-12] MEDS: Fluticasone-Salmererol 250-50 Inhaler INHALATION SCH ×2 (08:35→20:14)
[2017-03-12] MEDS: oxyCODONE ER 10 mg ER12 Tablet PO SCH (08:41)
--- NOTE | 2017-03-12 09:26 | NUR ---
No s/s of aspiration were noted on clinical bedside swallow evaluation. If aspiration is suspected on imaging, a modified barium swallow study may be warranted to fully visualize swallow and rule out silent aspiration.
[2017-03-12] MEDS ORDERED: Vancomycin Serum Trough XX ONE (09:30)
--- NOTE | 2017-03-12 10:52 | NUR ---
SW met with Pt to discuss potential return to [facility], Pt is agreeable for to return. [facility] updated, agreeable for her return. Access given. Pt discussed in rounds, likely to discharge in 2-3 days. ID following, involved. SW will continue to follow for discharge and Abx needs. JAMA Cano Flux Tube Attendant Addendum: 03/12/17 at 1355 by MARY LUIS TIMOTHY has reviewed manager internship note. JAMA Barillas Addendum: 03/12/17 at 1608 by AKHIL LUIS ID following, recommending 5-7 days of IV Zosyn. SW placed call to [facility] regarding updated information, voicemail left. SW to follow and await return call from [facility]. JAMA Cano Fl[employer] Tube Attendant
--- NOTE | 2017-03-12 11:24 | CONS ---
[address] [address] CONSULTATION REPORT PATIENT: OSMAN WOLFE : 1950 MR#: [id number] ADMIT: 03/10/2017 JOB ID: [id number] DATE OF SERVICE: 03/12/2017 REASON FOR CONSULTATION: Health-care associated right-sided pneumonia in a patient with a history of recent C. difficile colitis as well as recent life-threatening soft tissue infection, right lower extremity. I thank Dr. Luis E Lynn for this timely consult. HISTORY OF PRESENT ILLNESS: The patient is an extraordinarily complex, 67-year-old woman, who I have seen during two very difficult admissions within the past 12 months. Recall that the patient was admitted for an extraordinary right lower extremity abscess back in November of this year. That abscess really was necrotizing in many respects and involved considerable debridement, and was even a question as to whether right lower extremity could be salvaged. Fortunately, she made it through that complex hospitalization in relatively straightforward fashion despite her other many comorbidities. The cultures from that yielded group B strep, Enterobacter, methicillin sensitive Staph aureus and Corynebacterium striatum. She eventually, after a long hospital stay, was discharged on Cipro and linezolid. It is worth noting this was the most parsimonious way to cover this complex collection of organisms. The patient was recovering at a local assisted facility after all of that, when she was readmitted in December. At that time, the patient developed fevers, chills, abdominal pain and diarrhea. She also had some worsening of her chronic COPD. The patient was found to have actual renal failure, lactic acidosis and septic shock in December, and a diagnosis of C. diff was made. The patient was treated with fidaxomicin and Flagyl. She eventually recovered from this C. diff, which was undoubtedly secondary to the antibiotic she had received in November, admitted [facility] to the [facility]. There were concerns during that December admission, which extended into early January, that she might have peritonitis, but the peritoneal fluid cultures were negative and the cell counts were not compatible with that diagnosis, and she was eventually discharged in mid January after that long hospital stay. The patient spent about one month at the [facility] between mid January and mid February, and was doing reasonably well. Her right lower extremity wound was healing and she was at the time short of breath and desaturating due to her underlying extensive lung disease, but from her perspective she said she was feeling quite well. She said she was awakened from her sleep at [facility] because she was desaturating apparently, and was sent here for evaluation on March 10, two days ago. She states that she did not really have very many complaints and she is asking me this morning if she can return to [facility] immediately. She states that prior to her transfer here two days ago, she was not having any particular fevers, chills or sweats. She states she had a bit of a cough which is common for her, without much in the way of productive sputum and that she was not any more short of breath than she normally is. She states that she was not having any diarrhea at the [facility], nor did she have any abdominal pain, nausea or vomiting. She also notes that her right lower extremity seems to be healing very well. The notes from the chart indicates there were concerns about increasing shortness of breath and perhaps some chest heaviness. Both the patient and the chart agree that she was also having considerable swelling in both lower extremities which was more than her baseline prior to her transfer here. Upon transfer, the patient underwent Cardiac and Pulmonary evaluation. A CT scan of the chest was done for ruling out pulmonary embolism and was negative for that, but showed fairly extensive right greater than left infiltrates, and for that reason, the patient was started on vancomycin and Zosyn within the past 48 hours. The patient tells me that almost immediately after the initiation of antibiotics her diarrhea returned, having been gone now for over a month. This morning, the patient denies fevers, chills, sweats, or headache. She has no sore throat. She has a minimal cough. She says the machines drive her crazy because they report she desaturates frequently, which she said she always has and is not worried about that. She has no abdominal pain. No nausea or vomiting, but she does have diarrhea. No dysuria is noted. PAST MEDICAL HISTORY: 1. Lupus. 2. History of CVA. 3. COPD. 4. GERD. 5. Extensive right lower extremity wound, status post multiple debridements early in 2016, with polymicrobial infection. 6. C. difficile colitis with septic shock, December 2016. 7. History of cirrhosis, unclear supporting documentation. 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 She is a cigarette smoker when she is not in the hospital or at [facility]. She in a nondrinker. FAMILY HISTORY: Negative for tuberculosis in her first and second-degree relatives. REVIEW OF SYSTEMS: Complete review of systems was done. The patient is awake and alert this morning. She denies headache, visual change or sore throat. No trouble swallowing. She states she has a cough productive of minimal sputum. She has noticed when she coughs she may have some mild pleuritic pain on the right side. No substernal chest heaviness at this point. No nausea or vomiting. Some appetite is present. She notes she started having loose stools but only after she was admitted. No dysuria. Her right lower extremity is not giving her any pain at all at this point. She notes both lower extremities were quite swollen prior to admission, but they are much better now. No skin complaints. No neurologic complaints. The patient otherwise has negative review of systems. PHYSICAL EXAMINATION: Reveals an afebrile woman. Temp 36.7, pulse 75, respiratory rate 21, blood pressure 91/54, she is not on any vasopressor agents. She is saturating well but requiring 7 L. Examination of the mental status reveals she is quite clear, seems very similar to the woman I dealt with on our last two admissions. Head without trauma. No temporal wasting. Eyes without conjunctivitis or scleral icterus. Nose normal. Oral cavity, no thrush or pharyngitis. Neck supple without any adenopathy. Lungs posteriorly considerable rales and rhonchi at the right base and a few rales at the left base. Cardiac tones regular rate and rhythm this morning. No significant murmur is heard. The abdomen is soft and nontender without organomegaly or ascites. No Mendes catheter is present. The extremities without evidence of synovitis. The right lower extremity over about the mid tibial area still has about an 8 x 2 cm long, shallow, open wound, but this is healing very well and without any evidence of purulence or infection. It looks much better than it did when I last saw her several weeks ago. Her lower extremities have minimal edema bilaterally, but are 1+ at most. There was reasonable blood flow to the extremities as they are warm and well perfused. The patient is neurologically intact with respect to motor and sensory function. No skin rash is noted. LABORATORIES: Include white count 6800, hematocrit 25, platelets 212. Creatinine 0.59. Urinalysis with 11-50 white cells. Micro studies were reviewed from prior admissions and were discussed in the history of the present illness. On this admission, we have negative blood cultures from the . A sputum which had only a few polys, and was not impressive in any way. A MRSA swab of the nares from this admission was negative. Note that before she left the hospital in mid January, during her last lengthy admission for septic shock due to C. diff, her C. difficile PCR was negative. IMAGING: Was reviewed on the view screen. I personally reviewed the films. This CT of the chest showed mild patchy right-sided infiltrate, most impressive in the right lower lobe area. IMPRESSION: This is an extremely complicated case of a woman who has multiple underlying comorbidities and overall poor health in general. She was admitted here early in the year with a devastating right lower extremity infection, but got through that surprisingly well. Her antibiotics there were indicated for that life-threatening soft tissue infection, unfortunately, produced about a month later Clostridium difficile which was also associated with septic shock and was life-threatening. She got through that after a lengthy admission and returned to [facility], where she reports she has been doing great. She was sent here because of some increasing respiratory difficulty. Her CT scan certainly shows a significant right-sided infiltrate, and this could be on the basis of an aspiration type pneumonia, though it is undoubtedly health-care associated, as she has been in this hospital for two long hospital stays already this year, as well as living at [facility] for many weeks. I see no indication to give IV vancomycin in this situation, and we will stop it. We have many MRSA screens over the last now three admissions that are all negative. The Zosyn is probably a reasonable choice for healthcare-associated potentially aspiration type pneumonia in chronic obstructive pulmonary disease patients such as this. There is controversy among the experts in the literature as to whether or not oral vancomycin should be offered in situations like this, where the person has had a C. diff in the recent past and is at high risk for recurrence, but I think it is probably a reasonable maneuver. RECOMMENDATIONS: 1. Will discontinue the IV vancomycin. 2. I would definitely continue with oral vancomycin as "prophylaxis" against recurrent C. diff. 3. The total duration of Zosyn could probably be kept fairly short as in 5-7 days depending on her clinical course. 4. I will continue to follow this complex patient with you. Thank you very much for this consult.
--- NOTE | 2017-03-12 12:00 | NUR ---
Wound Care Wound evaluation orders received, pt seen at bedside today for wound care and assessment. 67 yo female admitted with pneumonia from SNF. Patient is well known to this provider as she has been followed by wound care for past admissions. Currently she has a healing right pretibial ulcer which was originally from an I&D of an abscess. This wound currently measures 7cm L x 1.5 cm W and is granular even to the skin edges, draining minimally. This was cleaned with gauze and redressed with Xeroform gauze, kerlix and coban from toes to knees to control edema. Patient also has 2 unstageable pressure injuries at her sacrum, the one on the right measures 2 cm L x 2 cm W x 0.2 cm D, wound base is 100% fibrin, the one on the left is 1 cm L x 1.5 cm W x 0.2 cm D and wound base is 100% fibrin, there is also a small stage 2 at her coccyx which is 0.3 cm in diameter. All of these pressure injuries were cleaned and redressed with Mepilex sacral foam dressing. Patient also presents with a deep tissue injury at the base of her great toe on the right plantarly which measures 2 cm L x 2 cm W and is flush with intact skin. Patient is on a CCU low airloss bed. Recommend frequent repositioning, mepilex can be changed q 48 hrs to PRN and leg dressing can be changed q 48 hrs as well.
--- NOTE | 2017-03-12 12:20 | PCM.PNMED ---
Subjective Date of Service Mar 12, 2017 Subjective 67-year-old woman with multiple medical comorbidities presents with acute onset respiratory failure with hypoxemia, low-grade fever and pulmonary infiltrate. She is at her baseline mental status and breathing comfortably. No significant cough or phlegm. She is mostly bothered by diarrhea, chronic musculoskeletal pain. She has been diagnosed with BETTE but refuses CPAP. She feels ready to go home. Exam Vital Signs Vital Sign - Last Date Time Temp Pulse Resp B/P Pulse Ox O2 Delivery O2 Flow Rate FiO2 03/12/17 11:42 36.8 89 18 111/61 94 Nasal Cannula 6.00 03/10/17 08:10 100 Intake and Output 03/11/17 03/11/17 03/12/17 Cumulative From/Thru 15:00 23:00 07:00 03/10/17 04:05 - 03/12/17 06:36 Intake Total 1139 ml 1082 ml 500 ml 4571 ml Output Total 725 ml 1990 ml Balance 1139 ml 357 ml 500 ml 2581 ml Intake Oral 630 ml 500 ml 1980 ml IV Total 1139 ml 452 ml 2591 ml Output Urine Total 725 ml 1990 ml # Voids 2 3 # Bowel Movements 3 2 8 Exam General: Pale-appearing woman in no acute distress HEENT: sclerae anicteric, oral mucosa moist, alopecia Neck: no apparent JVD Chest: Diffuse inspiratory crackles and coarse breath sounds in all lung bukcner Cardiac: S1S2, no murmur Abdomen: BS present, soft, non-tender Extremities: 1+ edema left greater than right with tenting skin; right lower extremity is full thickness but with no purulence or excavation; Neuro: A&O, cranial nerves symmetric, motor strength 4+/5, coordination normal Lab and Diagnostics Result Diagram: 03/12/175 03/12/17 0245 Microbiology Blood cultures :20 12-lead ECG EK/22 4:03 supraventricular tachycardia rate 113, Q-wave in lead III, low voltage over precordium, no acute ST changes 03/10 15:20 sinus rhythm, no acute ST-T wave changes . Assessment & Plan 67-year-old woman with long-standing fibrotic lung disease chronic medical debility presents with acute on chronic respiratory failure with hypoxemia, with elevated troponin and BNP Acute and active problems: # Acute respiratory failure with hypoxia. Present on admission. SaO2 55% on 2 L emergency department. Subsequent ABG shows severe hypoxemia. Chest x-ray and chest CT notable for chronic fibrotic changes and new infiltrate in right lower lobe, with small effusion. She seems to been treated extensively with antibiotics recently including quinolone plus pedal lactam. Infectious disease and Pulmonology consult obtained. - Oxygen therapy as needed - Treat for HCAP with Zosyn, - Discontinue vancomycin # Acute healthcare facility acquired pneumonia. recent hospitalization and wound care. Impressive interval changes in right lower lobe compared to previous CT scan. Markedly clinically improved within 48 hours. - Zosyn - Infectious disease consult # Acute on chronic diastolic congestive heart failure. ProBNP 15,617 on admission. Baseline troponin values from previous visits [id number]. Possible contribution of chronic right heart failure due to pulmonary fibrosis. Current value is elevated above baseline likely due to acute coronary ischemia. IV fluids have been limited at her weight has remained stable. - Strict intake and output - Minimum necessary IV fluids - Daily BMP with electrolyte management # Diarrhea, chronic. We have resumed oral vancomycin treatment in the setting of her broad-spectrum antibiotics. - Change vancomycin to capsule for taste tolerability reasons - Imodium when necessary # Weakness and debility - Physical therapy consult to maximize ambulation # nutritional status - General diet at present Resolving, stable and/or chronic problems: # Troponin elevated, acute. Baseline troponins were 0.04 reported during recent admission for C. difficile colitis. Current troponin is elevated above baseline, but series is flat. EKG was unremarkable. Doubt any acute coronary syndrome - discontinue Cardiac heparin # Septic shock. Systemic inflammatory response, acute. Heart rate 114, respiratory rate 21, blood pressure roz 85/51. Low-grade fever 37.5. Focal infection is right lower lobe pneumonia. Lactic acid is normal. Procalcitonin elevated 0.45. Hemogram with normal WBC count but 5% bands and 3% metamyelocytes. Patient is suffered C. difficile from antibiotic use in the recent past. Hemodynamics normalized within 24 hours with appropriate IV fluids. - Cardiovascular support: Mean arterial pressure greater than 65 mm, urine output greater than 0.5 ML/KG/HR # Chronic fibrotic lung disease, history COPD, ongoing tobacco use. - Monitor clinically Venous thromboembolism prophylaxis: Mechanical and chemical prophylaxis, currently on cardiac heparin drip Disposition: Anticipate discharge to SNF within 1-2 days Pain Evaluation: Pain not Controlled GI Prophylaxis: Not indicated VTE Prophylaxis: SRAVANI Williamson, Other Resuscitation Status: DNR/DNI:Do Not Resuscitate/Intubate Time spent 35 minutes Russell Lynn MD Mar 12, 2017 12:20
--- NOTE | 2017-03-12 13:16 | PROG NOTE ---
[address] [address] PROGRESS NOTE PATIENT: OSMAN WOLFE : 1950 MR#: [id number] ADMIT: 03/10/2017 JOB ID: [id number] DATE: 03/12/2017 PULMONARY FOLLOWUP NOTE: PROBLEM: 1. Right lower lobe pneumonia. 2. COPD, severe. 3. Cellulitis. 4. Status post Clostridium difficile colitis. SUBJECTIVE: Breathing quite a bit better. In fact, she is very anxious to go home, if not back to the care facility for more rehab. Coughed up small amount of yellow phlegm yesterday. Apparently sample pending. A bit stronger but still not walking. Apparently walks infrequently with her walker at the care facility, relying for the past two or three years on electric scooter. She apparently had even been living at home with the electric scooter and is quite sure that she could function fine at home alone. It turns out that she has been given oxygen in the past but wears it intermittently, if at all. Eating better. Had fruit and a sausage biscuit this morning. Still having some diarrhea. States that the diarrhea had pretty much resolved and she had formed stool but then, upon admission to the hospital and the institution of antibiotics, diarrhea returned. OBJECTIVE: Temperature 37, pulse mid 70s. Respiratory rate 16, blood pressure 103/60, O2 sat on 6 L is 93%. General appearance: No acute distress. Sitting upright in bed. Speaking easily. Moving around the bed easily. However, with movement and speaking, O2 saturations drop to low 80s. Chest: Fair breath sounds bilaterally. Maybe slightly decreased on the right. Some coarse crackles at the right lower lobe. Maybe a very few at the left lower lung field. Somewhat leathery, creaking adventitial sounds appreciated. Some mild end-expiratory wheezes in the upper lung buckner. Heart: Regular rhythm. Heart tones normal. Monitor shows a sinus rhythm. Heart tones normal. Abdomen soft. Bowel tones present. Nontender. Extremities: Maybe 1 to 2+ pretibial edema at the right foot, less on the left. Right calf swathed in gauzed for her cellulitis. In speaking with the marine specialist, she has been considered for grafting. Will have him take a look at it while she is here in the hospital. LABORATORY: Shows a hemoglobin of 7.8, which was 7.5 previous morning, and 8.7 on admission two days ago. Lytes are normal. Creatinine normal, 0.5. BUN normal at 9. X-rays and CT scans reviewed. PROBLEM LIST: 1. Right lower lobe pneumonia. Dense consolidation on the right. Some scattered fluffy infiltrates, more ground-glass variety. Doing reasonably well with regard to her oxygenation. Mental status is good. No evidence for hypercarbia. 2. Anemia. Recent drop may be due to fluids. It has been stable over the past 8 hours. Will need to repeat that. I think, in the absence of symptoms, tomorrow would be fine. In addition, she has some other abnormalities that deserve watching. Has a mild elevation in AST which was not there previously as recently as one month ago. Keep an eye on that. 3. Procalcitonin. Was 0.45. Might repeat that to see about duration of antibiotics. I think it is rather probable that she has a bacterial pneumonia. Will check sputum results. Vancomycin can be discontinued as MRSA was negative. Will obtain urine for pneumococcal and Legionella antigen. 4. Cellulitis. Sounds from secretary specialist that this is more than just cellulitis. Will have him check the wound while she is here as he has been taking care of it for quite a long period of time. PLAN: 1. Morning bloods consist of CBC with differential and platelet count. 2. Repeat calcitonin. 3. Repeat a CMP, checking lytes and checking procalcitonin. 4. Might consider discontinuing pantoprazole as she is not at real risk for stress ulcer. 5. Patient downgraded to progressive care unit.
--- NOTE | 2017-03-12 15:39 | NUR ---
spiritual care: routine pt expressing distress about a personal decision and conversant about it. appreciative of the chance to express it and engage in prayer.
--- NOTE | 2017-03-12 18:09 | NUR ---
Respiratory/BP/Right wrist No reports of chest pain/pressure/discomfort. Tele SR 80s, no ectopy. BP mid 80s-low 100s systolic/60-70 diastolic. No reports of SOB at rest, patient reports SOB with movement. SPO2 weaned from 6 to 2L NC, SPO2 at 92%. Patient reports rare cough, mostly dry with little to no sputum production. No reports of n/v or abdominal pain. Patient reports decrease in appetite. Bowel tones normal, voiding VIA bedpan. Patient is alert and oriented x3, HERRON, denies numbness/tingling in extremities. Moderate decrease r/t SOB and fatigue. Patient right wrist limp and can not extend -- MD aware. Patient states it happened 4 days ago "when I fell asleep in my wheelchair I woke up like that".
[2017-03-13] MEDS: Sodium Chloride LOK Flush 10 mL Syringe IVFLUSH SCH ×2 (00:30→10:04)
[2017-03-13] MEDS: Piperacillin-Tazo 3.375 Gm Inj 3.375 GM in Dextrose 5% Minibag Plus 50 ML IV SCH ×2 (01:35→10:04)
[2017-03-13] MEDS: Vancomycin 125 mg Oral Capsule PO SCH ×2 (02:49→10:05)
[2017-03-13 02:58] LABS: BASOPHILS % (AUTO) 0.4 % (0-3); EOSINOPHILS % (AUTO) 2.8 % (0-5); MONOCYTES % (AUTO) 12.3 % (4-12); Mean Corpuscular Hemoglobin 29.6 pg (27.0-35.0); Mean Corpuscular Volume 96.8 fL (81-100); Platelet Count 252 bil/L (150-400)
[2017-03-13 03:47] VITALS: BP 98/64; PULSE 81; RESP 19; O2SAT 100
[2017-03-13 03:54] LABS: Phosphorus 2.7 mg/dL (2.5-4.9)
--- NOTE | 2017-03-13 06:16 | NUR ---
activity: Pt refused turns and refused to get up to bedside commode. Pt on O2 at 3L/M per NC.
[2017-03-13 07:42] VITALS: BP 98/48; PULSE 83; RESP 19; O2SAT 98
--- NOTE | 2017-03-13 08:19 | PROG NOTE ---
[address] [address] PROGRESS NOTE PATIENT: OSMAN WOLFE : 1950 MR#: [id number] ADMIT: 03/10/2017 JOB ID: [id number] DATE: 03/13/2017 REASON FOR FOLLOWUP: Possible healthcare associated right-sided pneumonia in a patient with a history of C. diff. INTERVAL HISTORY: Overnight, the patient says she felt fine. She continues to deny that she has any significant shortness of breath, cough, fevers, chills, or sweats. She states she has an occasional loose stool, but certainly no diarrhea, no abdominal pain, and no cramps. She is anxious to be return to [facility] as soon as possible and states she is really in her usual state of health. The patient maintains that she was transferred more or less on accident when she was found to have a brief drop in her O2 sat and that there is essentially nothing wrong with her. OBJECTIVE: Temperature 36.8. She has been completely afebrile since her admission which is now almost 3 days ago. Pulse is in the 80s, sinus rhythm. Respiratory rate 18 or so and completely unlabored. Blood pressure 100/65. She is saturating well and currently using 3 L. Patient's mental status is clear. Oral cavity: No pharyngitis. Lungs with crackles at the right base posteriorly. Cardiac tones regular rate and rhythm without murmur. Abdomen entirely benign. No skin rash. DIAGNOSTIC STUDIES: Labs: White count 5400, hematocrit 25, platelet count 252, normal diff. Creatinine 0.45, albumin 2.5. Sputum with few polys and grew some Maggi which is of no significance. Blood cultures negative. MRSA screen negative. Urine antigens have not been collected as the nurses have been unable to get a clean urine sample as it is often mixed with stool or has been discarded. The procalcitonin for this morning was not ordered, so I have just ordered it STAT, and we do not have that result. The prior result from a couple days ago was 0.45. Chest x-ray shows a right basilar infiltrate. The CT scan of the chest done 3 days ago showed a significant right lower lobe infiltrate, and I reviewed that yesterday. IMPRESSION: It is really unclear to me what has transpired with this patient. She states that she was basically rudely transported here from the long-term without any new symptoms at all. Though the record suggests perhaps she had some increasing cough, shortness of breath, and desaturation. She does have a significant infiltrate on CT and plain chest radiographs and also has rales at that base, but she is essentially asymptomatic in terms of her breathing which is currently at her baseline and she has almost no cough. She has already received 3 days of broad-spectrum antibiotics. RECOMMENDATIONS: 1. Repeat STAT procalcitonin has been ordered. 2. Urine antigens will be collected today, and I spoke to the nursing staff about this. 3. Assuming her urine antigens for Legionella and pneumococcus are negative and her procalcitonin has not skyrocketed, I think she could be return to [facility] to finish a 7-day course of Zosyn that would take her through approximately March 16. 4. If the procalcitonin is significantly greater than 0.5 or we have a positive urine antigen that might change the way we approach the case in terms of the duration of antibiotics or the particular antibiotics to be chosen, but this patient actually looks about as good as I have seen her on any of her 3 recent prolonged hospitalizations.
--- NOTE | 2017-03-13 09:49 | PCM.PNMED ---
Subjective Date of Service Mar 13, 2017 Subjective PULMONOLOGY PROGRESS NOTE 67-year-old woman with long-standing fibrotic lung disease chronic medical debility presents with acute on chronic respiratory failure with hypoxemia, with elevated troponin and BNP. This morning patient states that other than some lower right "rib" pain, she feels fine and does not understand why she is still here. She has been eating well. Yesterday she sat in a chair to eat her lunch. Discussed trying to give her the best chance at not returning to the hospital would be to use the oxygen and walking. She states that she will be compliant with her oxygen and walking at [facility], if she can just be discharged. She feels at her baseline ( as she has asserted this entire hospitalization). Exam Vital Signs Vital Sign - Last Date Time Temp Pulse Resp B/P Pulse Ox O2 Delivery O2 Flow Rate FiO2 03/13/17 07:42 36.5 83 19 98/48 98 Nasal Cannula 4.00 03/10/17 08:10 100 Intake and Output 03/12/17 03/12/17 03/13/17 Cumulative From/Thru 15:00 23:00 07:00 03/10/17 04:05 - 03/13/17 06:15 Intake Total 687 ml 669 ml 440 ml 6367 ml Output Total 450 ml 650 ml 3090 ml Balance 687 ml 219 ml -210 ml 3277 ml Intake Oral 560 ml 300 ml 2840 ml IV Total 687 ml 109 ml 140 ml 3527 ml Output Urine Total 450 ml 2440 ml Urine/Stool Mix 650 ml 650 ml # Voids 3 2 8 # Bowel Movements 3 1 12 Exam General: chronically-ill appearing woman in no acute distress HEENT: sclerae anicteric, oral mucosa moist, alopecia Neck: no apparent JVD, no palpable lymph nodes Chest: Diffuse inspiratory crackles and coarse breath sounds in all lung buckner , worst RRL, speaking in full sentences, did NOT desaturate with sitting up in bed -- much improved from yesterday Cardiac: S1S2, no murmur Abdomen: BS present, soft, non-tender Extremities: 1+ edema B/L ankles and feet. Right lower leg wrapped (per wound care) Neuro: A&O, cranial nerves symmetric IVs and Medications Medications Reviewed: Medications were reviewed in detail Lab and Diagnostics Result Diagram: 03/13/17 0247 03/13/17 024 Microbiology Microbiology 03/10/17 Blood Culture - Preliminary, Resulted No growth at 2 days; culture examined... 03/11/17 Sputum Quality Screen - Final, Resulted, normal penny X-Rays, CTs and MRIs 03/10/17 CT ANGIO CHEST PULMONARY EMBOLISM IMPRESSION: Mild bilateral patchy upper lobe pneumonia, right greater than left. New dense right lower lobe pneumonia with adjacent small simple appearing pleural effusion. No pulmonary embolus found. Small presumably reactive lymph nodes are present to a greater number than generally would be seen on the right, likely reactive in this clinical circumstance. There is relatively prominent convex rightward scoliosis, contributing to volume loss within the right hemithorax. Dictated by: Pascual Hanson M.D. on 03/10/2017 at 8:23 03/10/17 X-RAY CHEST ONE VIEW, PORTABLE IMPRESSION: Right lung base pneumonia, possible slight pneumonia medial left lung base, mild or early pneumonia right upper lobe. Convex right scoliosis has been previously present, with asymmetric lung volumes (mildly reduced on the right associated with this chronic scoliosis). Please also refer to CT report from today. Dictated by: Pascual Hanson M.D. on 03/10/2017 at 8:40 03/11/17 X-RAY CHEST ONE VIEW, PORTABLE IMPRESSION: Right basilar opacity most compatible with pneumonia. Recommend followup imaging to resolution to exclude underlying neoplastic process. Dictated by: Virginia Berkowitz MD, PhD on 03/11/2017 at 9:45 . 12-lead ECG EK/22 4:03 supraventricular tachycardia rate 113, Q-wave in lead III, low voltage over precordium, no acute ST changes 03/10 15:20 sinus rhythm, no acute ST-T wave changes . Assessment & Plan 67-year-old woman with long-standing fibrotic lung disease chronic medical debility presents with acute on chronic respiratory failure with hypoxemia, with elevated troponin and BNP 1. Right lower lobe pneumonia, present on admission, improving 2. COPD, severe, present on admission, stable 3. Cellulitis, present on admission, improving 4. Status post Clostridium difficile colitis, present on admission PROBLEM LIST: 1. Right lower lobe pneumonia is improving. Patient did not desaturate today when she sat up in bed like she did yesterday. Encouraged patient to use oxygen at home. Mental status is good and no evidence for hypercarbia. Procalcitonin was 0.45 now cut in half today to 0.22. Pneumococcal and Legionella antigen pending. Last chest x-ray recommended follow-up imaging as pneumonia resolves to rule out neoplasm. Need to set up oxygen use at [facility] 2. Anemia. Stable and recent drop may be due to fluids. The mild elevation in AST has normalized today. 3. Cellulitis. Wound care has been taking care of this patient even prior to this hospitalization. Appreciate wound care. Total time: 35 minutes GI Prophylaxis: Not indicated VTE Prophylaxis: Sirisha Boyd Resuscitation Status: DNR/DNI:Do Not Resuscitate/Intubate Attending Statement The patient was seen and examined together with Dr. Velazco today and I agree with the history, exam and plan as outlined in the note above. The patient is ready to be discharged back to her Care Facility on O2 and IV piperacillin- tazobactam today. Renetta Velazco DO Mar 13, 2017 09:49 Juan Chan MD Mar 13, 2017 16:42
[2017-03-13] MEDS: Fluticasone-Salmererol 250-50 Inhaler INHALATION SCH (10:04)
[2017-03-13] MEDS: Potassium Chloride 20 mEq SR Tablet PO SCH (10:04)
--- NOTE | 2017-03-13 10:04 | NUR ---
[facility] Tomás Welch Director Mario confirmed they will be able to provide IV Zosyn for pt per ID MD recommendations. JAMA Nieto
[2017-03-13] MEDS: Pantoprazole 40 mg ER24 Tablet PO SCH (10:05)
[2017-03-13 10:34] VITALS: PULSE 74
[2017-03-13 10:41] LABS: APPEARANCE,URINE CLEAR (CLEAR,HAZY); COLOR,URINE STRAW (YELLOW); OCCULT BLOOD,URINE TRACE (NEGATIVE); UROBILINOGEN,URINE NORMAL (NORMAL)
[2017-03-13] MEDS ORDERED: OXYC10TA8 PO (11:23)
[2017-03-13] MEDS ORDERED: VANC125C3 PO (11:23)
--- NOTE | 2017-03-13 11:31 | PCM.DIMED ---
Discharge Instructions Date of Service Mar 13, 2017 Dates of Hospitalization Mar 10, 2017 at 07:12 Discharge Diagnosis Discharge Diagnosis Pneumonia; COPD and pulmonary fibrosis; acute on chronic respiratory failure with hypoxia; recent history of C. difficile colitis Medication Instructions You should continue to receive the antibiotic Zosyn 3.375 g intravenously every 8 hours for 3 more days, to finish on 03/16/17. This will be administered by the staff at [facility]. You should also continue to take vancomycin capsules for 5 days after your intravenous antibiotics are completed (8 days) to prevent recurrence of your C. difficile colitis. You should continue to take probiotic capsules. You may also take antidiarrhea medicines as needed. Diet No restrictions Activity Other (as per the physical therapy staff at [facility]) Patient Instructions You should continue to use oxygen via nasal cannula 2-4 L/m according to oxygen saturation which may be tested by the staff at [facility]. Advised to use her CPAP when you are sleeping to assist with good ventilation. Follow-up Provider: Ellie Rabago Follow-up with PCP in: Other (follow-up will rule out discharge from [facility]) Provider: Gregory Higgins DO Follow-up in: Other (at [facility]) Mid-level Provider (F9): [facility] Follow-up with Mid-level in: Other (as previously scheduled for your right lower extremity wound) Russell Lynn MD Mar 13, 2017 11:31
[2017-03-13 12:00] VITALS: BP 98/48; PULSE 78
--- NOTE | 2017-03-13 12:05 | NUR ---
Spoke with Kamila youth coordinator at [facility] and they will transport patient at 1330. Updated WET END OPERATOR
--- NOTE | 2017-03-13 12:31 | NUR ---
Social Work- Discharge Data: EMR reviewed. Pt is on day 3 of hospitalization for hypoxemia/intestinal pneumonia per H&P. Pt is ready for discharge. [facility] confirmed with SW that they are able to manage pt's IV Zosyn at discharge. [facility] today. UR Specialist created packet and faxed orders. Kamila, admissions at [facility], set up cabulance transportation for 1330. Pt to return to [facility] via cabulance at 1330. Paperwork in chart. UC, RN, pt/family, and [facility] all updated and agreeable to plan. Assessment: Pt who will return to SNF. Plan: Pt to return to [facility] via cabulance at 1330. Paperwork in chart. UC, RN, pt/family, and [facility] all updated and agreeable to plan. Jeanne Flores CANOPY INSPECTOR
--- NOTE | 2017-03-13 13:49 | NUR ---
Discharge Pt D/Cd back to [facility]. Called report to RN, TELE and PIV D/Cd. Discussed discharge orders and summary with RN.
--- NOTE | 2017-03-15 17:15 | PCM.DC.MED ---
Discharge Summary Date of Service Mar 13, 2017 Dates of Hospitalization Date of Hospital Admission Mar 10, 2017 at 07:12 Date of Discharge: Mar 13, 2017 Providers: Admitting Physician: Josue Argueta MD Primary Care Physician: Ellie Rabago Attending Physician: Josue Argueta MD Diagnosis at Time of Discharge Diagnosis at Time of Discharge Pneumonia; COPD and pulmonary fibrosis; acute on chronic respiratory failure with hypoxia; recent history of C. difficile colitis Consultations INfectious Disease: IMPRESSION: It is really unclear to me what has transpired with this patient. She states that she was basically [facility] without any new symptoms at all. Though the record suggests perhaps she had some increasing cough, shortness of breath, and desaturation. She does have a significant infiltrate on CT and plain chest radiographs and also has rales at that base, but she is essentially asymptomatic in terms of her breathing which is currently at her baseline and she has almost no cough. She has already received 3 days of broad-spectrum antibiotics. RECOMMENDATIONS: 1. Repeat STAT procalcitonin has been ordered. 2. Urine antigens will be collected today, and I spoke to the nursing staff about this. 3. Assuming her urine antigens for Legionella and pneumococcus are negative and her procalcitonin has not skyrocketed, I think she could be return to [facility] to finish a 7-day course of Zosyn that would take her through approximately March 16. 4. If the procalcitonin is significantly greater than 0.5 or we have a positive urine antigen that might change the way we approach the case in terms of the duration of antibiotics or the particular antibiotics to be chosen, but this patient actually looks about as good as I have seen her on any of her 3 recent prolonged hospitalizations. Rom Lopez MD 03/13/17 0640 Procedures XRay, CTs & MRIs 03/10/17 CT ANGIO CHEST PULMONARY EMBOLISM IMPRESSION: Mild bilateral patchy upper lobe pneumonia, right greater than left. New dense right lower lobe pneumonia with adjacent small simple appearing pleural effusion. No pulmonary embolus found. Small presumably reactive lymph nodes are present to a greater number than generally would be seen on the right, likely reactive in this clinical circumstance. There is relatively prominent convex rightward scoliosis, contributing to volume loss within the right hemithorax. Dictated by: Pascual Hanson M.D. on 03/10/2017 at 8:23 03/10/17 X-RAY CHEST ONE VIEW, PORTABLE IMPRESSION: Right lung base pneumonia, possible slight pneumonia medial left lung base, mild or early pneumonia right upper lobe. Convex right scoliosis has been previously present, with asymmetric lung volumes (mildly reduced on the right associated with this chronic scoliosis). Please also refer to CT report from today. Dictated by: Pascual Hanson M.D. on 03/10/2017 at 8:40 03/11/17 X-RAY CHEST ONE VIEW, PORTABLE IMPRESSION: Right basilar opacity most compatible with pneumonia. Recommend followup imaging to resolution to exclude underlying neoplastic process. Dictated by: Virginia Berkowitz MD, PhD on 03/11/2017 at 9:45 . ECG 12 Lead EK/22 4:03 supraventricular tachycardia rate 113, Q-wave in lead III, low voltage over precordium, no acute ST changes 03/10 15:20 sinus rhythm, no acute ST-T wave changes . Brief History HPI (per admission note): She has recently been resident in [facility]. Recent months been complicated by right lower extremity soft tissue infection and severe C. difficile colitis. She was feeling reasonably well until 3-4 days prior to admission with increasing cough and dyspnea. Reports that her cough is mostly nonproductive. She has had some discomfort and heaviness in her chest throughout. No clearly defined episode of chest pain. No abdominal complaints today. Legs are chronically swollen but not increased recently. Hospital Course 67-year-old woman with long-standing fibrotic lung disease chronic medical debility presents with acute on chronic respiratory failure with hypoxemia, with elevated troponin and BNP 1. Right lower lobe pneumonia, present on admission, improving 2. COPD, severe, present on admission, stable 3. Cellulitis, present on admission, improving 4. Status post Clostridium difficile colitis, present on admission PROBLEM LIST: 1. Right lower lobe pneumonia is improving. Patient did not desaturate today when she sat up in bed like she did yesterday. Encouraged patient to use oxygen at SNF & home. Mental status is good and no evidence for hypercarbia. Procalcitonin was 0.45 now cut in half today to 0.22. Pneumococcal and Legionella antigen pending. Need to set up oxygen use at [facility]. Encouraged to use CPAP. 2. Anemia. Stable and recent drop may be due to fluids. . 3. Cellulitis. Wound care has been taking care of this patient even prior to this hospitalization. Appreciate wound care. 4. Continue C. difficile vancomycin until end of current antibiotics. Exam Vital Signs (Last) Date Time Temp Pulse Resp B/P Pulse Ox O2 Delivery O2 Flow Rate FiO2 03/13/17 10:34 74 03/13/17 08:00 Supplement Oxygen 03/13/17 07:42 36.5 19 98/48 98 4.00 03/10/17 08:10 100 Exam General: Pale-appearing woman in no acute distress HEENT: sclerae anicteric, oral mucosa moist, alopecia Neck: no apparent JVD Chest: Diffuse inspiratory crackles and coarse breath sounds in all lung buckner Cardiac: S1S2, no murmur Abdomen: BS present, soft, non-tender Extremities: 1+ edema left greater than right with tenting skin; right lower extremity is full thickness but with no purulence or excavation; Neuro: A&O, cranial nerves symmetric, motor strength 4+/5, coordination normal Test 03/10/17 04:00 03/10/17 20:25 03/11/17 01:46 03/13/17 02:47 Band Neutrophils % 5% (1-5) Metamyelocytes % 3% (0-0) Hematology Comments Prothrombin Time 11.2sec (8.1-12.5) Prothromb Time International Ratio 1.05ratio D-Dimer 3.35mg/L FEU (<0.50) Lactic Acid Level 1.0mmol/L (0.4-2.0) Magnesium Level 1.7mg/dL (1.6-2.6) Pro-B-Type Natriuretic Peptide 02295fj/mL (0-301) Troponin T 0.127ug/L (0.0-0.011) Activated Partial Thromboplast Time 82.6sec (22.8-33.0) White Blood Count 5.4th/mm3 (3.8-10.1) Red Blood Count 2.53mil/mm3 (3.90-5.20) Hemoglobin 7.5g/dL (12.0-15.6) Hematocrit 24.5% (35.0-46.0) Mean Corpuscular Volume 96.8fL (81-100) Mean Corpuscular Hemoglobin 29.6pg (27.0-35.0) Mean Corpuscular Hemoglobin Concent 30.6% (32.0-37.0) Red Cell Distribution Width 17.2% (12.3-15.4) Platelet Count 252bil/L (150-400) Neutrophils (%) (Auto) 53.0% (40-74) Lymphocytes (%) (Auto) 30.9% (14-46) Monocytes (%) (Auto) 12.3% (4-12) Eosinophils (%) (Auto) 2.8% (0-5) Basophils (%) (Auto) 0.4% (0-3) Sodium Level 145mEq/L (134-144) Potassium Level 4.0mEq/L (3.5-5.2) Chloride Level 111mEq/L (97-108) Carbon Dioxide Level 26mmol/L (18-29) Blood Urea Nitrogen 8mg/dL (8-27) Creatinine 0.45mg/dL (0.57-1.00) Estimat Glomerular Filtration Rate 200mL/min (>59) Glucose Level 82mg/dL (60-99) Calcium Level 7.5mg/dL (8.5-10.1) Phosphorus Level 2.7mg/dL (2.5-4.9) Total Bilirubin 0.2mg/dL (0.0-1.2) Aspartate Amino Transf (AST/SGOT) 25U/L (0-50) Alanine Aminotransferase (ALT/SGPT) 13U/L (0-32) Alkaline Phosphatase 60U/L (25-165) Total Protein 5.1g/dL (6.4-8.4) Albumin 2.5g/dL (3.4-5.0) Procalcitonin 0.22ng/mL (0.00-0.08) Test 03/13/17 10:30 03/13/17 10:33 Urine Legionella pneumophilia Ag Negative (Negative) Urine Color Straw (YELLOW) Urine Appearance Clear (CLEAR,HAZY) Urine pH 6.0 (5.0-8.0) Urine Specific Hawley 1.020 (1.003-1.035) Urine Protein Negativemg/dL (NEG,TRACE) Urine Glucose (UA) Negativemg/dL (NEGATIVE) Urine Ketones Negativemg/dL (NEGATIVE) Urine Occult Blood Trace (NEGATIVE) Urine Nitrite Negative (NEGATIVE) Urine Bilirubin Negative (NEGATIVE) Urine Urobilinogen Normalmg/dL (NORMAL) Urine Leukocyte Esterase Small (NEGATIVE) Urine RBC 3-10/hpf (0-2) Urine WBC 6-10/hpf (0-5) Urine Epithelial Cells Moderate/hpf (NONE-MOD) Urine Crystals Amorphous urates (NONE Urine Bacteria Few/hpf (NONE-FEW) Urine Hyaline Casts Rare/lpf (NONE) Urine Granular Casts None seen (NONE SEEN) Urine Waxy Casts None seen (NONE SEEN) Urine Red Blood Cell Casts None seen (NONE SEEN) Urine White Blood Cell Casts None seen (NONE SEEN) Urine Mucus Present (None Seen) Urine Trichomonas None seen (NONE SEEN) Urine Yeast None (NONE SEEN) Urinalysis Comment None Urine Culture Reflexed Indicated Microbiology Results Microbiology 03/10/17 Blood Culture - Preliminary, Resulted No growth at 2 days; culture examined... 03/11/17 Sputum Quality Screen - Final, Resulted, normal penny Discharge Medications Discharge Medications Alendronate Sodium (Fosamax) 70 Mg Tablet 70 MG PO WEEKLY (Reported) Aspirin Chew (Aspirin Chew) 81 Mg Chew 81 MG PO DAILY (Reported) Cholecalciferol (Vitamin D3) (Vitamin D3) 1,000 Unit Tab.chew 1,000 UNIT PO DAILY (Reported) Ferrous Sulfate (Ferrous Sulfate) 325 Mg Tablet 325 MG PO BID (Reported) Fluticasone/Salmeterol (Advair 250-50 Diskus) 60 Puff/Inh Disk 1 PUFF IH BID ( Reported) Furosemide (Furosemide) 20 Mg Tab 20 MG PO DAILY Prescribed by: PADMAJA POLLARD MD Gabapentin (Neurontin) 400 Mg Capsule 400 MG PO QID Prescribed by: ALBERT GUERRA DO Lactobacillus Acidophilus (Probiotic) 1 Each Capsule 1 EACH PO DAILY Prescribed by: PADMAJA POLLARD MD Loratadine (Claritin) 10 Mg Capsule 10 MG PO DAILY (Reported) Multivitamin (Multivitamins) 1 Each Capsule 1 EACH PO DAILY (Reported) Pantoprazole DR (Pantoprazole DR) 40 Mg Tablet.dr 40 MG PO DAILY (Reported) Potassium Chloride (Potassium Chloride) 20 Meq Tab.er.prt 20 MEQ PO DAILY Prescribed by: PADMAJA POLLARD MD Vancomycin (Vancomycin) 125 Mg Capsule 125 MG PO Q6 Prescribed by: JOSUE ARGUETA MD As needed Acetaminophen (Acetaminophen) 325 Mg Capsule 650 MG PO Q4 PRN PRN For Pain ( Reported) Albuterol HFA (Proair HFA) 8.5 Gm Hfa.aer.ad 2 PUFFS INH Q4H PRN PRN For Shortness of Breath (Reported) Calcium Carbonate (Tums) 500 Mg Tab.chew 1,000 MG PO TIDWM PRN PRN For Indigestion (Reported) Loperamide (Loperamide) 2 Mg Capsule 2 MG PO Q6H PRN PRN For Diarrhea or Loose Stool Prescribed by: PADMAJA POLLARD MD Ondansetron (Ondansetron) 4 Mg Tablet 4 MG PO Q8H PRN PRN For Nausea (Reported) Sennosides (Senna) 8.6 Mg Tablet 17.2 MG PO BID PRN PRN For Constipation Prescribed by: ALBERT GUERRA DO diphenhydrAMINE HCl (Benadryl) 25 Mg Capsule 25 MG PO Q4H PRN PRN For Itching Prescribed by: ALBERT GUERRA DO oxyCODONE (oxyCODONE) 10 Mg Tablet 10 MG PO Q6H PRN PRN For Pain Prescribed by: JOSUE ARGUETA MD Additional med instructions You should continue to receive the antibiotic Zosyn 3.375 g intravenously every 8 hours for 3 more days, to finish on 03/16/17. This will be administered by the staff at [facility]. You should also continue to take vancomycin capsules for 5 days after your intravenous antibiotics are completed (8 days) to prevent recurrence of your C. difficile colitis. You should continue to take probiotic capsules. You may also take antidiarrhea medicines as needed. Followup Plan Disposition: [facility] Discharge Diet: No restrictions Discharge Activity: Other (as per the physical therapy staff at [facility]) Patient Instructions You should continue to use oxygen via nasal cannula 2-4 L/m according to oxygen saturation which may be tested by the staff at [facility]. Advised to use her CPAP when you are sleeping to assist with good ventilation. Follow-up Provider: Ellie Rabago Follow-up with PCP in: Other (follow-up will rule out discharge from [facility]) Provider: Gregory Higgins DO Follow-up in: Other (at [facility]) Mid-level Provider: [facility] Follow-up with Mid-level in: Other (as previously scheduled for your right lower extremity wound) Time spent 35 min copies to: Ellie Rabago; Gregory Higgins Jeffrey W MD Mar 13, 2017 11:33
== END 2017-03-13 13:38 | DRG 193 ==
LOC: SED 03:44 → PCC 07:12
PROVIDERS: ADMIT Internal Medicine; ATTEND Internal Medicine
PROC: 4A033B1 Measurement of Arterial Pressure, Peripheral, Percutaneous Approach (ICD-10-PCS; principal; 2017-03-10)
DX: J18.9 Pneumonia, unspecified organism (principal); J96.21 Acute and chronic respiratory failure with hypoxia; J84.10 Pulmonary fibrosis, unspecified; K21.9 Gastro-esophageal reflux disease without esophagitis; F17.210 Nicotine dependence, cigarettes, uncomplicated; J44.9 Chronic obstructive pulmonary disease, unspecified; Z66 Do not resuscitate; G47.33 Obstructive sleep apnea (adult) (pediatric); Z79.82 Long term (current) use of aspirin; Z86.73 Personal history of transient ischemic attack (TIA), and cerebral infarction without residual deficits

== ENCOUNTER 2017-04-19 12:21 | Emergency (ER) | payer MEDICARE, MEDICAID ==
[~2017-04-19] VITALS: Ht 175.3 cm; Wt 57.3 kg
[~2017-04-19 12:21] MED LIST changes: -BISA-67 PO; -CALC500T53 PO; +CALC500T9 PO; +FERR-83 PO; -OXYC10TA69 PO; +OXYC10TA8 PO; -OXYC5TAB72 PO; +PANT40TA3 PO; +VANC125C3 PO
[2017-04-19 12:25] VITALS: BP 99/59; PULSE 78; RESP 16; O2SAT 99
[2017-04-19 15:07] LABS: BASOPHILS % (AUTO) 0.5 % (0-3); EOSINOPHILS % (AUTO) 4.3 % (0-5); Mean Corpuscular Hemoglobin 31.1 pg (27.0-35.0); Mean Corpuscular Volume 94.3 fL (81-100); NEUTROPHILS % (AUTO) 58.6 % (40-74); Platelet Count 247 bil/L (150-400)
--- NOTE | 2017-04-19 15:19 | ED.REPORT ---
HPI-Extremity Problem Lower Date of Service Apr 19, 2017 ED Provider: Doc,Ed MD History of Present Illness: 67yo female with hx. of chronic R leg wound that was slow to heal and required lengthy hospitalization and penitentiary care earlier this year. She has a home health nurse who advised she get leg evaluated today. Pt. went to Urgent Care who then referred her here for further evaluation. Nursing Notes Stated Complaint: CELLULITIS RT LOWER EXT Chief Complaint: Extremity Trauma Nursing Notes Reviewed: Yes Allergies: Coded Allergies: No Known Allergies (Unverified , 03/10/17) Scheduled Alendronate Sodium (Fosamax) 70 Mg Tablet 70 MG PO WEEKLY Aspirin Chew (Aspirin Chew) 81 Mg Chew 81 MG PO DAILY Cholecalciferol (Vitamin D3) (Vitamin D3) 1,000 Unit Tab.chew 1,000 UNIT PO DAILY Ferrous Sulfate (Ferrous Sulfate) 325 Mg Tablet 325 MG PO BID Fluticasone/Salmeterol (Advair 250-50 Diskus) 60 Puff/Inh Disk 1 PUFF IH BID Furosemide (Furosemide) 20 Mg Tab 20 MG PO DAILY Gabapentin (Neurontin) 400 Mg Capsule 400 MG PO QID Lactobacillus Acidophilus (Probiotic) 1 Each Capsule 1 EACH PO DAILY Loratadine (Claritin) 10 Mg Capsule 10 MG PO DAILY Multivitamin (Multivitamins) 1 Each Capsule 1 EACH PO DAILY Pantoprazole DR (Pantoprazole DR) 40 Mg Tablet.dr 40 MG PO DAILY Potassium Chloride (Potassium Chloride) 20 Meq Tab.er.prt 20 MEQ PO DAILY Vancomycin (Vancomycin) 125 Mg Capsule 125 MG PO Q6 Scheduled PRN Acetaminophen (Acetaminophen) 325 Mg Capsule 650 MG PO Q4 PRN PRN For Pain Albuterol HFA (Proair HFA) 8.5 Gm Hfa.aer.ad 2 PUFFS INH Q4H PRN PRN For Shortness of Breath Calcium Carbonate (Tums) 500 Mg Tab.chew 1,000 MG PO TIDWM PRN PRN For Indigestion Loperamide (Loperamide) 2 Mg Capsule 2 MG PO Q6H PRN PRN For Diarrhea or Loose Stool Ondansetron (Ondansetron) 4 Mg Tablet 4 MG PO Q8H PRN PRN For Nausea Sennosides (Senna) 8.6 Mg Tablet 17.2 MG PO BID PRN PRN For Constipation diphenhydrAMINE HCl (Benadryl) 25 Mg Capsule 25 MG PO Q4H PRN PRN For Itching oxyCODONE (oxyCODONE) 10 Mg Tablet 10 MG PO Q6H PRN PRN For Pain General Time Seen by MD: 15:18 Chief Complaint Other Chronic R lower leg erythema and weeping Hx Obtained From: Patient Arrived By: Wheelchair Onset Occurred: More than a week ago... (4 months) Symptom Duration: Since onset Severity: Current: No pain currently Severity: Maximum: No pain Pertinent Negative: Pt denies other symptoms Recent Healthcare: Recent doctor visit Similar Sx Previous: Yes Risk-Extremity Prob Lower Well's Criteria for DVT Immob lower ext (1), Pit edema sympt leg (1), Altern dx DVT likely (-2) Well's DVT Score: 0 pts (low risk 5%) Past Medical History Past Medical History Notes: Hospital admission from Jan 10 to January 30 2017: Recurrent septic shock with acute metabolic encephalopathy due to c-diff colitis and spontaneous bacterial peritonitis versus pneumonia. Past Medical History C. diff colitis with septic shock pulmonary edema chronic anemia Arthritis h/o pneumonia CVA 1989 Lupus Cirrhosis Anemia TIA (1989) Osteoporosis h/o rectovaginal fistula Sacral decubitus ulcer recurrent UTI Neuropathy chronic Right leg wound, stage III Reports: COPD, GERD Reports: Obesity Past Surgical History Right carpal tunnel Left hip repair ORIF l ankle Umbilical Hernia repair Reports: Tonsillectomy Reports: Carpal tunnel, Tubal ligation Family History Noncontributory Smoking History Current Every Day Smoker Social History Hx of alcoholism. Living at [facility]. Alcohol Use: Denies alcohol use Other Social History: Local resident Ambulatory Status Wheelchair Review of Systems Constitutional: Denies: Chills, Fever Musculoskeletal: Denies: Extremity pain Skin: Reports Rash (R leg erythema.) Respiratory: Denies: Shortness of breath Cardiovascular: Denies: Chest pain GI: Denies: Abdominal pain Physical Exam Physical Exam Notes: In wheelchair at baseline, due to chronic medical conditions. Initial Vital Signs Vital Signs (First) Date Time Temp Pulse Resp B/P Pulse Ox O2 Delivery O2 Flow Rate FiO2 04/19/17 12:25 36.4 78 16 99/59 99 Room Air Initial VS: Reviewed Respiratory: Breath sounds normal Cardiovascular: Regular rate & rhythm Abdomen / GI: Soft Neurologic: Alert, Oriented Right Leg / Calf: Positive: Erythema present, Negative: Neuro deficit present, Pulses distal decreased, R calf > L calf, Warmth present Interpretation & Diagnostics Lab Results Interpretation Result Diagram: 04/19/17 1458 04/19/17 1458 Test 04/19/17 14:58 White Blood Count 6.0th/mm3 (3.8-10.1) Red Blood Count 3.86mil/mm3 (3.90-5.20) Hemoglobin 12.0g/dL (12.0-15.6) Hematocrit 36.4% (35.0-46.0) Mean Corpuscular Volume 94.3fL (81-100) Mean Corpuscular Hemoglobin 31.1pg (27.0-35.0) Mean Corpuscular Hemoglobin Concent 33.0% (32.0-37.0) Red Cell Distribution Width 14.0% (12.3-15.4) Platelet Count 247bil/L (150-400) Neutrophils (%) (Auto) 58.6% (40-74) Lymphocytes (%) (Auto) 27.6% (14-46) Monocytes (%) (Auto) 9.0% (4-12) Eosinophils (%) (Auto) 4.3% (0-5) Basophils (%) (Auto) 0.5% (0-3) Sodium Level 137mEq/L (134-144) Potassium Level 4.2mEq/L (3.5-5.2) Chloride Level 94mEq/L (97-108) Carbon Dioxide Level 29mmol/L (18-29) Blood Urea Nitrogen 14mg/dL (8-27) Creatinine 0.77mg/dL (0.57-1.00) Estimat Glomerular Filtration Rate 107mL/min (>59) Glucose Level 99mg/dL (60-99) Lactic Acid Level 0.7mmol/L (0.4-2.0) Calcium Level 8.8mg/dL (8.5-10.1) Total Bilirubin 0.3mg/dL (0.0-1.2) Aspartate Amino Transf (AST/SGOT) 22U/L (0-50) Alanine Aminotransferase (ALT/SGPT) 7U/L (0-32) Alkaline Phosphatase 101U/L (25-165) Total Protein 6.7g/dL (6.4-8.4) Albumin 3.5g/dL (3.4-5.0) Hold Dasilva Top Tube Received (Received) Re-Eval/Medical Decision Med Decision/Clinical Course Pt. evaluated by Dr. Long who advises close follow up with PCP. Pt. reports leg weeping and erythema is at baseline. Labs are reassuring. No compelling clinical indication fo antibiotic at present. Discussed Pt. with her PCP, OPAL Pedro. She is unable to see Pt. in clinic tomorrow, and suggests Wound Center eval tomorrow. Differential Diagnosis: Positive: Cellulitis Counseled Regarding: Diagnosis, Lab results, Need for follow-up, When/why to return to ED Discharge & Departure Shift Change Sign-Out Response to Therapy: Unchanged Impression: Primary Impression: Lymphedema of right lower extremity Additional Impression: Chronic erythema Patient Instructions: Lymphedema (ED) Additional Instructions: Elevate R leg. Get seen at Wound Center tomorrow. If unable to be seen at Wound Center, call your PCP's office for possible appointment. If unable to get in with either of those tomorrow, return to this ED on Sunday, 04/21, or sooner if anythiong worsens. Referrals: Arian Sofia MD 1 Day Recheck R leg. EDSupervising Provider for APC: Salazar Long MD Attending Statement I saw and evaluated this patient with Mr. Roman myself. I am in agreement with his assessment and plan. Troy Roman PAC Apr 19, 2017 15:19 Salazar Long MD Apr 20, 2017 00:14
[2017-04-19 17:36] VITALS: BP 110/69; PULSE 78; RESP 17; O2SAT 98
== END 2017-04-19 17:37 ==
LOC: SED 12:21
DX: I89.0 Lymphedema, not elsewhere classified (principal); L53.8 Other specified erythematous conditions; J44.9 Chronic obstructive pulmonary disease, unspecified; K21.9 Gastro-esophageal reflux disease without esophagitis; D53.9 Nutritional anemia, unspecified; M32.9 Systemic lupus erythematosus, unspecified; F17.200 Nicotine dependence, unspecified, uncomplicated; Z86.73 Personal history of transient ischemic attack (TIA), and cerebral infarction without residual deficits; Z79.82 Long term (current) use of aspirin
CPT/HCPCS: 36415; 80053; 83605; 85025; 99283; G0463